=== PATIENT | male | born 1955 | race Caucasian/White ===

== ENCOUNTER 2023-10-22 01:46 | Outpatient (CLI) | payer MEDICARE, SELFPAY ==
--- OUTSIDE RECORDS SUMMARY | 2023-11-05 22:03 | XMS_ITS | Clinical Summary ---
Author Organization [facility] Address [address] [place] [address] Care Team Providers Care Transit Specialist Name Role Phone Makr Colorado M.D. Primary Care Provider [phone] Source Comments Patient records contain information from all sites at [facility]. For routine questions regarding patient records, call [phone] during business hours, M-F 8:00 AM - 5:00 PM Central Time. Record requests for emergency care only can be directed to [phone] at any time.[facility] Allergies No known active allergies Medications Medication Sig Dispensed Refills Start Date End Date Status cholecalciferol (VITAMIN D3) 125 mcg (5,000 Unit) capsule Take 125 mcg by mouth daily. Active coenzyme Q10 (CO Q-10) 10 mg capsule Take 10 mg by mouth daily. 12/02/19 21 Active cyanocobalamin (VITAMIN B12) 1,000 mcg tablet Take 1,000 mcg by mouth every other day. 12/06/19 Active docusate sodium (Colace) 100 mg capsule Take 200 mg by mouth daily. Active glucosamine qxn-vcxasiteuj-mrp 500-200-150 mg tablet Take 1 tablet by mouth daily. 12/06/19 Active bisacodyL (DULCOLAX) 10 mg suppositoryIndicat ions:Constipation Slow Transit Insert 1 suppository (10 mg total) into the rectum daily as needed for constipation. 30 suppository 09/13/19 23 Active polyethylene glycol (MIRALAX) 17 gram/dose oral powder Take 17 g by mouth at bedtime. Dissolve each 17 g dose in 240 mL (8 ounces) of beverage. 10/24/19 Active magnesium chloride (SLOW-MAG) 71.[address] tablet Take 1 tablet (71.5 mg total) by mouth as directed. Take 2 tabs in the morning and 1 tab in the evening. Do not crush or chew. 01/18/20 Active Additional Information Patient taking differently: 143 mgoral2 times daily before morning and evening meals, Take 2 tabs in the morning and 2 tab in the evening. Do not crush or chew., Informant: Self, Reported on 10/22/2023 tamsulosin (FLOMAX) 0.4 mg 24 hr capsule Take 1 capsule (0.4 mg total) by mouth daily. 90 capsule 3 02/15/20 Active Additional Information Patient taking differently:0.4 mg oralEvery evening, Informant: Self, Reported on 09/26/2023 sennosides (senna) 8.6 mg tabletIndications: Constipation Slow Transit Take 1 tablet (8.6 mg total) by mouth 2 (two) times a day. 90 tablet 2 03/03/20 23 Active Additional Information Patient taking differently:8.6 mg oral,(No frequency reported), Daily prn, Reported on 05/16/2023 dexAMETHasone (DECADRON) 4 mg tablet Take 1 tablet (4 mg total) by mouth daily. 3 tablet 08/30/19 24 Active Additional Information Patient taking differently:4 mg oralAs needed, nausea, vomiting, Emergency supply 3 tablets only if needed., Informant: Self, Reported on 09/26/2023 amLODIPine (Norvasc) 10 mg tablet Take 1 tablet (10 mg total) by mouth daily. 90 tablet 1 10/08/19 24 Active Additional Information Patient taking differently:10 mg oralDaily at bedtime, Reported on 10/22/2023 ondansetron ODT (Zofran-ODT) 8 mg disintegrating tablet Dissolve 1 tablet (8 mg total) in the mouth every 8 (eight) hours as needed for nausea or vomiting. 20 tablet 3 10/16/19 24 Active HYDROmorphone (Dilaudid) 2 mg tabletIndications: Chronic Pain/Nonacute Pain Take 1 tablet (2 mg total) by mouth every 4 (four) hours as needed for pain Indication: Chronic Pain/Nonacute Pain. 42 tablet 10/16/19 24 Active fluticasone propionate (Flonase) 50 mcg/actuation nasal spray Administer 2 sprays into each nostril daily. Daily prn 10/24/19 24 Active lisinopriL 20 mg tablet Take 20 mg by mouth daily. Active prochlorperazine (COMPAZINE) 10 mg tabletIndications: Cholangiocarcinoma (HCC),Coding File Clerk Current Drug Therapy, Chemotherapy Take 1 tablet (10 mg total) by mouth every 6 (six) hours as needed for nausea or vomiting (unrelieved by ondansetron). 30 tablet 3 11/03/19 23 024 fluticasone propionate (FLONASE) 50 mcg/actuation nasal spray Administer 2 sprays into each nostril daily. 16 g 3 02/15/20 23 024 Discontinued amLODIPine (NORVASC) 10 mg tablet Take 1 tablet (10 mg total) by mouth daily. 30 tablet 3 08/05/19 24 024 Discontinued(Re order) lisinopriL (PRINIVIL,ZESTRIL) 10 mg tablet Take 1 tablet (10 mg total) by mouth daily. 30 tablet 11 09/17/19 24 024 Discontinued(Re order) HYDROmorphone (Dilaudid) 2 mg tabletIndications: Chronic Pain/Nonacute Pain TAKE 1 TABLET (2 MG TOTAL) BY MOUTH EVERY 4 (FOUR) HOURS NEEDED FOR PAIN INDICATION: CHRONIC PAIN/NONACUTE PAIN. 42 tablet 09/20/19 24 024 Discontinued(Re order) ondansetron ODT (Zofran-ODT) 8 mg disintegrating tablet Dissolve 1 tablet (8 mg total) in the mouth every 8 (eight) hours as needed for nausea or vomiting. 20 tablet 10/02/19 24 024 Discontinued(Re order) lisinopriL 10 mg tablet Take 1 tablet (10 mg total) by mouth daily. 90 tablet 1 10/08/19 24 024 Discontinued lisinopriL 20 mg tablet Take 1 tablet (20 mg total) by mouth daily. 30 tablet 3 10/16/19 24 024 Discontinued(St op Taking at Discharge) acetaminophen (TylenoL) 500 mg tablet Take 500 mg by mouth every 6 (six) hours as needed for pain. 024 Discontinued sulfamethoxazole-t rimethoprim (Bactrim DS) 800-160 mg per tabletIndications: Intra-abdominal infection, community acquired Take 1 tablet by mouth every 12 (twelve) hours for 4 days Indications: Intra-abdominal infection, community acquired. 8 tablet 10/24/19 24 024 Discontinued sulfamethoxazole-t rimethoprim (Bactrim DS) 800-160 mg per tabletIndications: Intra-abdominal infection, community acquired Take 1 tablet by mouth every 12 (twelve) hours for 4 days Indications: Intra-abdominal infection, community acquired. 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 on 12/21/2022 Pathologic stage from 01/09/2023:Stage IV(pM1) - Signed by Na Hernandez M.D., Ph.D. on 01/16/2023 Pure Hypercholesterolemia 11/17/20182022 Encounters Date Type Department Care Team Description 4 1:00 PM CDT Infusion Department of Oncology in [place], [place] [address] [place] [phone] Na Hernandez M.D., Ph.D. Pure Hypercholesterolemia (Primary Dx); Cholangiocarcinoma (HCC); Assisted Current Drug Therapy, Chemotherapy; Peritoneal Carcinomatosis (HCC); Neutropenia Chemotherapy Induced (HCC) 4 11:27 AM CDT - 4 11:59 PM CDT Hospital Encounter Department of Radiology, [facility] in [place], [place] [address] [place] [phone] Dolores Rosario APRN, C.N.P., M.S. Dysuria Discharge Disposition: Home or Self Care 4 10:40 AM CDT Office Visit Department of Oncology in [address] [phone] Dolores Rosario APRN C.N.P., M.S. Assisted Current Drug Therapy, Chemotherapy (Primary Dx); Cholangiocarcinoma (HCC); Peritoneal Carcinomatosis (HCC); Neutropenia Chemotherapy Induced (HCC) 4 9:20 AM CDT Lab Department of Infusion Therapy in [place], [place] [address] [place] [phone] Na Hernandez M.D., Ph.D. Pure Hypercholesterolemia (Primary Dx); Cholangiocarcinoma (HCC); Coding File Clerk Current Drug Therapy, Chemotherapy; Peritoneal Carcinomatosis (HCC); Neutropenia Chemotherapy Induced (HCC) 4 1:00 PM CDT Office Visit Department of Family Medicine, [facility], in [address] [place] [address] Mark [place] M.D. Diarrhea (Primary Dx); Cholangiocarcinoma (HCC); Hesitancy Urinary; Hypertension Essential Primary Discharge Disposition: Home or Self Care 4 Orders Only Department of Oncology in [place], [place] [address] [place] [address] Dolores Rosario APRN, C.NAleta., M.S. Dysuria (Primary Dx) 4 7:20 AM CDT Office Visit Department of Oncology in [place], [place] [address] [place] [address] Dolores Rosario APRN, C.N.P., M.S. Cholangiocarcinoma (HCC) 4 Orders Only Department of Oncology in [place], [place] [address] [place] [address] Omero Lopes Cholangiocarcinoma (HCC) (Primary Dx); Assisted Current Drug Therapy, Chemotherapy; Peritoneal Carcinomatosis (HCC); Neutropenia Chemotherapy Induced (HCC) 4 Orders Only Department of Oncology in [place], [place] [address] [place] [address] Omero Lopes 4 Clinical Communication Department of Family Medicine, [facility], in [address] [place] [address] Mark Colorado M.D. Communication 4 Clinical Communication Department of Oncology in [place], [place] [address] [place] [address] Bacilio Forrester M.D. 4 Clinical Communication Department of Oncology in [place], [place] [address] [place] [phone] Jodi Rosa RJohanna., O.C.N. Plan moving forward 4 Orders Only Department of Oncology in [place], [place] [address] [place] [address] Omero Lopes 4 Clinical Communication Division of Gastroenterology in [place], [place] [address] [place] [address] Isis Fonseca M.D. 4 1:20 PM CDT Anesthesia Event Division of Gastroenterology in [place], [place] [address] [place] [phone] Lynsey Boyle APRN, Siena Short M.D. 4 12:55 PM CDT - 4 11:59 PM CDT Hospital Encounter Department of Radiology, [facility] in [place], [place] [address] [place] [phone] Hansa Ye M.D., M.S. Discharge Disposition: Home or Self Care 4 12:50 PM CDT Ancillary Procedure Department of Gastroenterology 4 3:09 AM CDT - 4 5:52 PM CDT Hospital Encounter [facility], [facility], Sixth Floor [address] [place] [phone] Donna Prince M.D., M.P.H. Ricki Navarro M.B., B.Chir. Change Mental Status (Primary Dx); Sepsis (HCC); Elevated Liver Function Test; Retention Urinary; Constipation Slow Transit; Weakness General; Anemia Chemotherapy Induced; Debility [R53.81] Discharge Disposition: Home-Health Care [facility] 4 Orders Only Department of Oncology in [place], [place] [address] [place] [address] Omero Lopes Pure Hypercholesterolemia (Primary Dx); Cholangiocarcinoma (HCC) 4 7:17 PM CDT - 4 10:30 PM CDT Emergency [facility] [address] [place] [phone] Tresa Patino APRN, C.N.PHolden, D.N.P., M.S.N. Abdominal Pain (Primary Dx) Discharge Disposition: Home or Self Care 4 Orders Only Department of Oncology in [place], [place] [address] [place] [phone] Omero Lopes 4 Clinical Communication Department of Oncology in [place], [place] [address] [place] [phone] Sukhi Duong M.S.N., R.N. 4 10:15 AM CDT Telemedicine Department of Family Medicine, [facility], in [place], [place] [address] [place] [id number] Mark [place] M.D. Cholangiocarcinoma (HCC) (Primary Dx); Hesitancy Urinary; Weakness General Discharge Disposition: Home or Self Care 4 Refill Department of Oncology in [place], [place] [address] [place] [phone] Na Hernandez M.D., Ph.D. Med Refill (Ondansetron, hydromorphone ) 4 10:00 AM CDT Infusion Department of Oncology in [address] [phone] Na Hernandez M.D., Ph.D. Pure Hypercholesterolemia (Primary Dx); Cholangiocarcinoma (HCC); Peritoneal Carcinomatosis (HCC); Neutropenia Chemotherapy Induced (HCC); Assisted Current Drug Therapy, Chemotherapy 4 9:20 AM CDT Nurse Only Department of Oncology in [place], [place] [address] [place] [phone] Loyda Lennon M.D. Schepp, Camille M, R.N. 4 7:15 AM CDT Lab Department of Oncology in [address] [phone] Na Hernandez M.D., Ph.D. Pure Hypercholesterolemia (Primary Dx); Cholangiocarcinoma (HCC); Peritoneal Carcinomatosis (HCC); Neutropenia Chemotherapy Induced (HCC); Coding File Clerk Current Drug Therapy, Chemotherapy 4 Refill Department of Oncology in [place], [place] [address] [place] [phone] Na Hernandez M.D., Ph.D. Med Refill 4 Orders Only Department of Oncology in [place], [place] [address] [place] [phone] Omero Lopes Cholangiocarcinoma (HCC) (Primary Dx); Assisted Current Drug Therapy, Chemotherapy; Peritoneal Carcinomatosis (HCC); Neutropenia Chemotherapy Induced (HCC) 4 Orders Only Department of Oncology in [place], [place] [address] [place] [phone] Omero Lopes Pure Hypercholesterolemia (Primary Dx); Cholangiocarcinoma (HCC) 4 Clinical Communication Department of Oncology in [place], [place] [address] [place] [phone] Jodi Rosa R.N., O.C.N. Symptom Assessment (Nausea, pain) 4 12:00 PM CDT Infusion Department of Oncology in [place], [place] [address] [place] [phone] Na Hernandez M.D., Ph.D. Coding File Clerk Current Drug Therapy, Chemotherapy (Primary Dx); Cholangiocarcinoma (HCC); Peritoneal Carcinomatosis (HCC); Neutropenia Chemotherapy Induced (HCC); Pure Hypercholesterolemia 4 9:30 AM CDT Office Visit Department of Oncology in [place], [place] [address] [place] [phone] Yuko Pennington MPAS, P.A.-C. Cholangiocarcinoma (HCC); Peritoneal Carcinomatosis (HCC); Neutropenia Chemotherapy Induced (HCC); Coding File Clerk Current Drug Therapy, Chemotherapy 4 Orders Only Department of Oncology in [place], [place] [address] [place] [phone] Omero Lopes Cholangiocarcinoma (HCC) (Primary Dx); Coding File Clerk Current Drug Therapy, Chemotherapy; Peritoneal Carcinomatosis (HCC); Neutropenia Chemotherapy Induced (HCC) 4 Orders Only Department of Oncology in [place], [place] [address] [place] [phone] Omero Lopes 4 Orders Only Department of Oncology in [place], [place] [address] [place] [phone] Omero Lopes 4 1:20 PM CDT Office Visit Department of Oncology in [place], [place] [address] [place] [phone] Na Hernandez M.D., Ph.D. Cholangiocarcinoma (HCC) (Primary Dx) 4 8:02 AM CDT - 4 11:59 PM CDT Hospital Encounter Department of Radiology, [facility], in [address] [phone] Na Hernandez M.D., Ph.D. Cholangiocarcinoma (HCC) Discharge Disposition: Home or Self Care 4 Orders Only Department of Oncology in [place], [place] [address] [place] [phone] Omero Lopes Peritoneal Carcinomatosis (HCC) (Primary Dx); Cholangiocarcinoma (HCC) 4 Orders Only Department of Oncology in [address] [phone] Omero Lopes 4 9:45 AM CDT Clinical Communication Virtual Review in [place], [place] [address] [place] [address] Blood Pressure 4 Orders Only Department of Oncology in [place], [place] [address] [place] [phone] Omero Lopes Cholangiocarcinoma (HCC) (Primary Dx); Peritoneal Carcinomatosis (HCC); Neutropenia Chemotherapy Induced (HCC); Assisted Current Drug Therapy, Chemotherapy 4 9:30 AM CDT Infusion Department of Oncology in [place], [place] [address] [place] [phone] Na Hernandez M.D., Ph.D. Assisted Current Drug Therapy, Chemotherapy (Primary Dx); Cholangiocarcinoma (HCC); Peritoneal Carcinomatosis (HCC); Neutropenia Chemotherapy Induced (HCC); Pure Hypercholesterolemia 4 7:30 AM CDT Lab Department of Oncology in [place], [place] [address] [place] [phone] Na Hernandez M.D., Ph.D. Pure Hypercholesterolemia (Primary Dx); Cholangiocarcinoma (HCC); Peritoneal Carcinomatosis (HCC); Neutropenia Chemotherapy Induced (HCC); Assisted Current Drug Therapy, Chemotherapy 4 Orders Only Department of Oncology in [place], [place] [address] [place] [phone] Na Hernandez M.D., Ph.D. 4 Orders Only Department of Oncology in [place], [place] [address] [place] [phone] Omero Lopes Cholangiocarcinoma (HCC) (Primary Dx); Assisted Current Drug Therapy, Chemotherapy; Peritoneal Carcinomatosis (HCC); Neutropenia Chemotherapy Induced (HCC) 4 Refill Department of Oncology in [place], [place] [address] [place] [phone] Yuko Pennington MPAS, P.A.-C. Med Refill 4 8:15 AM CDT Infusion Department of Oncology in [place], [place] [address] [place] [phone] Na Hernandez M.D., Ph.D. Pure Hypercholesterolemia (Primary Dx); Cholangiocarcinoma (HCC); Peritoneal Carcinomatosis (HCC); Neutropenia Chemotherapy Induced (HCC); Assisted Current Drug Therapy, Chemotherapy 4 7:15 AM CDT Lab Department of Oncology in [place], [place] [address] [place] [phone] Na Hernandez M.D., Ph.D. Pure Hypercholesterolemia (Primary Dx); Cholangiocarcinoma (HCC); Peritoneal Carcinomatosis (HCC); Neutropenia Chemotherapy Induced (HCC); Coding File Clerk Current Drug Therapy, Chemotherapy 4 Orders Only Department of Oncology in [place], [place] [address] [place] [address] [place] [address] Omero Lopes Cholangiocarcinoma (HCC) (Primary Dx); Assisted Current Drug Therapy, Chemotherapy; Peritoneal Carcinomatosis (HCC); Neutropenia Chemotherapy Induced (HCC) 4 2:15 PM CDT Infusion Department of Oncology in [place], [place] [address] [place] [address] Na Hernandez M.D., Ph.D. Coding File Clerk Current Drug Therapy, Chemotherapy (Primary Dx); Cholangiocarcinoma (HCC); Peritoneal Carcinomatosis (HCC); Neutropenia Chemotherapy Induced (HCC); Pure Hypercholesterolemia 4 1:20 PM CDT Office Visit Department of Oncology in [place], [place] [address] [place] [address] Na Hernandez M.D., Ph.D. Cholangiocarcinoma (HCC); Peritoneal Carcinomatosis (HCC); Neutropenia Chemotherapy Induced (HCC); Assisted Current Drug Therapy, Chemotherapy 4 11:11 AM CDT - 4 11:59 PM CDT Hospital Encounter Department of Cardiovascular Diseases in [place], [place] [address] [place] [address] Na Hernandez M.D., Ph.D. Cholangiocarcinoma (HCC) Discharge Disposition: Home or Self Care 4 Orders Only Department of Oncology in [place], [place] [address] [place] [address] Luna Laboy Cholangiocarcinoma (HCC) (Primary Dx); Assisted Current Drug Therapy, Chemotherapy; Peritoneal Carcinomatosis (HCC); Neutropenia Chemotherapy Induced (HCC) 4 Orders Only Department of Oncology in [place], [place] [address] [place] [phone] Karen Burger 4 2:39 AM CDT - 4 6:29 AM CDT Emergency [facility] [address] [place] [phone] Erin Maldonado P.A.Mendoza., P.A., M.S. Headache Unspecified (Primary Dx); Pain Chest Atypical Discharge Disposition: Home or Self Care 4 Refill Department of Oncology in [address] [phone] Lee Woods M.D., M.P.H. Med Refill (Hydromorphone ) 4 Orders Only Department of Oncology in [address] [phone] Tao, Karen R 4 Documentation Department of Oncology in [address] [phone] Loyda Lennon M.D. 4 11:30 AM CDT Infusion Department of Oncology in [address] [phone] Yuko Pennington MPAS, P.A.-C. Coding File Clerk Current Drug Therapy, Chemotherapy (Primary Dx); Cholangiocarcinoma (HCC); Peritoneal Carcinomatosis (HCC); Neutropenia Chemotherapy Induced (HCC) 4 9:00 AM CDT Infusion Department of Oncology in [address] [phone] Yuko Pennington MPAS, P.A.-C. Pure Hypercholesterolemia (Primary Dx); Cholangiocarcinoma (HCC); Coding File Clerk Current Drug Therapy, Chemotherapy; Peritoneal Carcinomatosis (HCC); Neutropenia Chemotherapy Induced (HCC) 4 Orders Only Department of Oncology in [place], [place] [address] [place] [phone] Tao, Karen R Cholangiocarcinoma (HCC) (Primary Dx); Assisted Current Drug Therapy, Chemotherapy; Peritoneal Carcinomatosis (HCC); Neutropenia Chemotherapy Induced (HCC) 4 10:00 AM CDT Infusion Department of Oncology in [address] [phone] Yuko Pennington MPAS, P.A.-C. Pure Hypercholesterolemia (Primary Dx); Cholangiocarcinoma (HCC); Coding File Clerk Current Drug Therapy, Chemotherapy; Peritoneal Carcinomatosis (HCC); Neutropenia Chemotherapy Induced (HCC) 4 8:45 AM CDT Lab Department of Oncology in [place], [place] [address] [place] [address] Yuko Pennington MPAS, P.A.-C. Pure Hypercholesterolemia (Primary Dx); Cholangiocarcinoma (HCC) 4 Orders Only Department of Oncology in [place], [place] [address] [place] [address] Yuko Pennington MPAS, P.A.-C. Cholangiocarcinoma (HCC) (Primary Dx); Peritoneal Carcinomatosis (HCC); Neutropenia Chemotherapy Induced (HCC); Assisted Current Drug Therapy, Chemotherapy 4 Orders Only Department of Oncology in [place], [place] [address] [place] [phone] Tao, Karen R Cholangiocarcinoma (HCC) (Primary Dx); Coding File Clerk Current Drug Therapy, Chemotherapy; Peritoneal Carcinomatosis (HCC); Neutropenia Chemotherapy Induced (HCC) 4 Orders Only Department of Oncology in [place], [place] [address] [place] [address] Tao, Karen R 4 10:00 AM CDT Infusion Department of Oncology in [place], [place] [address] [place] [phone] Yuko Pennington MPAS, P.A.-C. Coding File Clerk Current Drug Therapy, Chemotherapy (Primary Dx); Cholangiocarcinoma (HCC); Peritoneal Carcinomatosis (HCC); Neutropenia Chemotherapy Induced (HCC); Pure Hypercholesterolemia 4 9:15 AM CDT Lab Department of Oncology in [place], [place] [address] [place] [address] Yuko Pennington MPAS, P.A.-C. Pure Hypercholesterolemia (Primary Dx); Cholangiocarcinoma (HCC) 4 Orders Only Department of Oncology in [place], [place] [address] [place] [address] Tao, Karen R Cholangiocarcinoma (HCC) (Primary Dx); Assisted Current Drug Therapy, Chemotherapy; Peritoneal Carcinomatosis (HCC); Neutropenia Chemotherapy Induced (HCC) 4 Orders Only Department of Oncology in [place], [place] [address] [place] [address] Tao, Karen R Cholangiocarcinoma (HCC) (Primary Dx) 4 2:00 PM CDT Infusion Department of Oncology in [place], [place] [address] [place] [address] Yuko Pennington MPAS, P.A.-C. Pure Hypercholesterolemia (Primary Dx); Cholangiocarcinoma (HCC); Coding File Clerk Current Drug Therapy, Chemotherapy; Peritoneal Carcinomatosis (HCC) 4 1:10 PM CDT Office Visit Department of Oncology in [place], [place] [address] [place] [address] Yuko Pennington MPAS, P.A.-C. Peritoneal Carcinomatosis (HCC) (Primary Dx); Cholangiocarcinoma (HCC); Coding File Clerk Current Drug Therapy, Chemotherapy 4 Orders Only Department of Oncology in [place], [place] [address] [place] [address] Tao, Karen R Cholangiocarcinoma (HCC) (Primary Dx); Assisted Current Drug Therapy, Chemotherapy; Peritoneal Carcinomatosis (HCC) 4 Orders Only Department of Oncology in [place], [place] [address] [place] [address] Tao, Karen R 4 Clinical Communication Department of Oncology in [place], [place] [address] [place] [address] Tavia Arroyo, R.N. 4 Orders Only Department of Oncology in [place] [place], [place] [address] [place] [phone] Tao, Karen R Cholangiocarcinoma (HCC) (Primary Dx) 4 Orders Only Department of Oncology in [place], [place] [address] [place] [phone] Tao, Karen R Cholangiocarcinoma (HCC) (Primary Dx); Peritoneal Carcinomatosis (HCC); Assisted Current Drug Therapy, Chemotherapy; Neutropenia Chemotherapy Induced (HCC) from Last 3 Months Immunizations Name Administration Dates Next Due Influenza high dose QV(65 ye ars or older) (PF) 01/29/2023,01/15/2022,01/23/2021 PCV13 11/17/2018 PPSV23 12/01/2019 SARS-COV-2 (COVID-19) - MODE RNA (12 YEARS AND OLDER) [id number] 01/29/2023 Tdap 05/28/2013 Social History Tobacco Use Types Packs/Day Years Used Date Smoking Tobacco: Never Passive Smoke Exposure: Never Smokeless Tobacco: Never Tobacco Cessation:Counseling Given: Not Answered Alcohol Use Standard Drinks/Week Comments Not Currently 0 (1 standard drink = 0.6 oz pur e alcohol) [facility] Utilities Answer Date Recorded In the past 12 months has e [employer], gas, oil, or water company threatened to shut off services in your home? No 10/22/2023 Humiliation, Afraid, Rape, and Kick questionnair e Answer Date Recorded Within the last year, have y ou been afraid of your partner or ex-partner? No 10/22/2023 Within the last year, have y ou been humiliated or emotionally abused in other ways by your partner or ex-partner? No Within the last year, have y ou been kicked, hit, slapped, or otherwise physically hurt by your partner or ex-partner? No 10/22/2023 Within the last year, have y ou been raped or forced to have any kind of sexual activity by your partner or ex-partner? No 10/22/2023 Overall Financial Resource Strain (CARDIA) Answe r Date Recorded How hard is it for you to pa y for the very basics like food, housing, medical care, and heating? Not hard at all 09/10/2022 PHQ-2 Answer Date Recorded PHQ-2 Score 0 10/16/2023 Exercise Vital Sign Answer Date Recorde d On average, how many days pe r week do you engage in moderate to strenuous exercise (like a brisk walk)? 0 days 10/10/2023 On average, how many minutes do you engage in exercise at this level? 0 min 10/10/2023 Hunger Vital Sign Answer Date Recorded Within the past 12 months, y ou worried that your food would run out before you got the money to buy more. Never true 10/22/19 Within the past 12 months, t he food you bought just didn't last and you didn't have money to get more. Never true 10/22/2023 PRAPARE - Transportation Answer Date Re corded In the past 12 months, has l ack of transportation kept you from medical appointments or from getting medications? No 09/30 In the past 12 months, has l ack of transportation kept you from meetings, work, or from getting things needed for daily living? No 10/22/2023 Nutrition Answer Date Recorded On average, how many serving s of fruits and vegetables do you eat per day (serving size is equal to 1 cup or approximately the size of a tennis ball)? 3-5 10/10/2023 Dental Answer Date Recorded Dental: Regular Dentist Yes 09/11/19 Employment Answer Date Recorded Employment status Retired 10/10/2023 Housing Stability Answer Date Recorded What is your living situation today? I have a [facility] place to live 10/22/2023 Sex and Gender Information Value Date Recorded Sex Assigned at Male 09/10/2022 12:02 PM CDT Gender Identity Male 09/10/2022 12:02 PM CDT Sexual Orientation Straight 09/10/2022 12 :02 PM CDT Last Filed Vital Signs Vital Sign Reading Time Taken Comments Blood Pressure 139/73 11/01/2023 10:31 AM CDT Pulse 71 11/01/2023 10:31 AM CDT Temperature 37 ??C (98.6 ??F) 11/01/2023 10:31 AM CDT Respiratory Rate 17 10/29/2023 7:08 AM CDT Oxygen Saturation 98% 11/01/2023 10:31 AM CDT Inhaled Oxygen Concentration - - Weight 87.2 kg (192 lb 3.9 oz) 11/01/2023 10:31 AM CDT Height 182.6 cm (5' 11.89) 11/01/2023 10:31 AM CDT Body Mass Index 26.15 11/01/2023 10:31 AM CDT Plan of Treatment Upcoming Encounters Date Type Department Care Team (Latest Contact Info) Description 11/07/2023 3:15 PM CDT Clinical Communication Virtual Review in [place], [place] [address] [place] [phone] 11/15/2023 6:40 AM CDT Lab Department of Laboratory Medicine and Pathology, [facility], in [place], [place] [address] [place] [phone] Loyda Lennon M.D. [address] [place] [phone] 11/15/2023 8:20 AM CDT Office Visit Department of Oncology in [place], [place] [address] [place] [phone] Manjit Velasquez APRN, C.N.P., D.N.P. [address] [place] [phone] 11/15/2023 9:30 AM CDT Comprehensive Visit Department of Palliative Care in [place], [place] [address] [place] [phone] Patty Gomez APRN, C.N.P., M.S.N. [address] [place] [phone] 11/15/2023 2:15 PM CDT Infusion Department of Oncology in [place], [place] [address] [place] [phone] Loyda Lennon M.D. [address] [place] [phone] 11/22/2023 7:30 AM CDT Lab Department of Oncology in [place], [place] [address] [place] [phone] Loyda Lennon M.D. [address] [place] [phone] 11/22/2023 8:45 AM CDT Infusion Department of Oncology in [place], [place] [address] [place] [phone] Loyda Lennon M.D. [address] [place] [phone] 11/28/2023 3:30 PM CDT Clinical Communication Virtual Review in [place], [place] [address] [place] [address] 11/29/2023 9:00 AM CDT Procedure visit Department of Urology in [place], [place] [address] [place] [phone] Mark Colorado M.D. [address] [place] [address] [place] [phone] 11/29/2023 11:20 AM CDT Lab Department of Laboratory Medicine and Pathology, [facility] in [place], [place] [address] [place] [phone] Loyda Lennon M.D. [address] [place] [phone] 11/29/2023 11:30 AM CDT Lab Department of Oncology in [place], [place] [address] [place] [phone] Loyda Lnenon M.D. [address] [place] [phone] 11/29/2023 1:00 PM CDT Infusion Department of Oncology in [place], [place] [address] [place] [phone] Loyda Lennon M.D. [address] [place] [phone] 12/03/2023 1:45 PM CDT Comprehensive Visit Department of Urology in [place], [place] [address] [place] [phone] Mona Egan P.A.-C. [address] [place] [phone] 12/05/2023 1:20 PM CDT Comprehensive Visit Department of Oncology in [place], [place] [address] [place] [phone] Letty Kate M.D. [address] [place] [phone] 12/10/2023 3:00 PM CDT Clinical Communication Virtual Review in [place], [place] [address] [place] [address] 12/10/2023 3:30 PM CDT Procedure visit Department of Urology in [place], [place] [address] [place] [phone] Mark Colorado M.D. [address] [place] [address] [place] [address] 12/12/2023 3:45 PM CDT Appointment Department of Radiology, [facility], in [place], [place] [address] [place] [phone] Na Hernandez M.D., Ph.D. [address] [place] [phone] 12/13/2023 6:00 AM CDT Lab Department of Laboratory Medicine and Pathology, [facility], in [place], [place] [address] [place] [phone] Loyda Lennon M.D. [address] [place] [phone] 12/13/2023 6:20 AM CDT Lab Department of Infusion Therapy in [place], [place] [address] [place] [phone] Loyda Lennon M.D. [address] [place] [phone] 12/13/2023 11:10 AM CDT Office Visit Department of Oncology in [place], [place] [address] [place] [phone] Na Hernandez M.D., Ph.D. [address] [place] [phone] 12/13/2023 1:00 PM CDT Infusion Department of Oncology in [place], [place] [address] [place] [phone] Loyda Lennon M.D. [address] [place] [phone] 12/20/2023 9:20 AM CDT Lab Department of Infusion Therapy in [place], [place] [address] [place] [phone] Loyda Lennon M.D. [address] [place] [phone] 12/20/2023 10:30 AM CDT Infusion Department of Oncology in [place], [place] [address] [place] [phone] Loyda Lennon M.D. [address] [place] [phone] 12/25/2023 10:30 AM CDT Appointment Division of Gastroenterology in [place], [place] [address] [place] [phone] aN Hernandez M.D., Ph.D. [address] [place] [phone] 12/27/2023 10:15 AM CDT Lab Department of Oncology in [place], [place] [address] [place] [phone] Loyda Lennon M.D. [address] [place] [phone] 12/27/2023 10:30 AM CDT Lab Department of Laboratory Medicine and Pathology, [facility], in [place], [place] [address] [place] [phone] Loyda Lennon M.D. [address] [place] [phone] 12/27/2023 11:45 AM CDT Infusion Department of Oncology in [place], [place] [address] [place] [phone] Loyda Lennon M.D. [address] [place] [phone] 01/03/2024 1:00 PM CDT Clinical Communication Virtual Review in [place], [place] [address] [place] [address] 01/10/2024 8:00 AM CDT Lab Department of Infusion Therapy in [address] [phone] Loyda Lennon M.D. [address] [place] [phone] 01/10/2024 8:20 AM CDT Lab Department of Laboratory Medicine and Pathology, [facility] in [place], [place] [address] [place] [phone] Loyda Lennon M.D. [address] [place] [phone] 01/10/2024 10:30 AM CDT Office Visit Department of Oncology in [address] [phone] Na Hernandez M.D., Ph.D. [address] [place] [phone] 01/10/2024 11:45 AM CDT Infusion Department of Oncology in [place], [place] [address] [place] [phone] Loyda Lennon M.D. [address] [place] [phone] 01/17/2024 8:45 AM CDT Lab Department of Oncology in [place], [place] [address] [place] [phone] Loyda Lennon M.D. [address] [place] [phone] 01/17/2024 10:00 AM CDT Infusion Department of Oncology in [place], [place] [address] [place] [phone] Loyda Lennon M.D. [address] [place] [phone] 01/24/2024 8:00 AM CDT Lab Department of Laboratory Medicine and Pathology, [facility] in [place], [place] [address] [place] [phone] Loyda Lennon M.D. [address] [place] [phone] 01/24/2024 8:15 AM CDT Lab Department of Oncology in [place], [place] [address] [place] [phone] Loyda Lennon M.D. [address] [place] [phone] 01/24/2024 9:15 AM CDT Infusion Department of Oncology in [place], [place] [address] [place] [phone] Loyda Lennon M.D. [address] [place] [phone] Scheduled Procedures Name Priority Associated Diagnoses Date/Ti me HEPATECTOMY RESECTION LIVER Cholangiocarcinoma (HCC) ULTRASOUND LIVER Cholangiocarcinoma (HCC) RECONSTRUCTION PORTAL VEIN Cholangiocarcinoma (HCC) Health Maintenance Due Date Last Done Comments CT Colonography 1955 Cologuard 1955 Generalized Anxiety (OTTO-7) 1955 Hepatitis A Vaccines (1 of 2 - Risk 2-dose series) 02/23/1972 Zoster Vaccines (1 of 2) 02/23/1972 Hepatitis B Vaccines (1 of 3 - Risk 3-dose series) 2013 COVID-19 Vaccine ( season) 2023 01/29/2023, 01/15/2022, 01/23/2021, Additional history exists DTaP,Tdap,and Td Vaccines (2 - Td or Tdap) 05/28/2023 05/28/2013 Controlled Substance Agreement 11/03/2023 Controlled Substance Monitoring (PHQ-9) 11/03/2023 Controlled Substance Monitoring 11/03/2023 Opioid Risk Tool (ORT) 11/03/2023 PEG assessment for Opioid therapy 11/03/2023 Influenza Vaccine (#1) 2023 , 01/15/2022, 01/23/2021 Lipid (Cholesterol) Screening 01/26/2024 01/25/2023, 12/05/2021, 12/01/2020 Visit: Medicare Annual Wellness 01/31/2024 01/29/2023, 12/05/2021 Visit: Annual, age 65+ (or Medicare and <65) 10/29/2024 10/30/2023, 12/05/2021 Creatinine Level (Kidney Function Test) 10/31/2024 11/01/2023, 10/29/2023, 10/24/2023, Additional history exists Potassium Level 10/31/2024 11/01/2023, 10/01, 10/24/2023, Additional history exists Sodium Level 10/31/2024 11/01/2023, 10/01, 10/24/2023, Additional history exists Colonoscopy 07/18/2026 07/18/2016 (Perf ormed elsewhere), 07/18/2016 Colorectal Cancer Surveillance 07/18/2026 Fasting Glucose for Diabetes Screening 10/31/2026 11/01/2023, 10/29/2023, 10/24/2023, Additional history exists Pneumococcal vaccine (65+ years) Completed 12/01/2019, 11/17/2018 Fall Risk Screen (Annual) Completed 08/02/2023 Depression Screening (Annual PHQ-2) Completed 10/16/2023, 10/16/2023 HPV Vaccines Aged Out No longer eligi ble based on patient's age to complete this topic Medical Devices Implanted Type Area Wax Pourer Device Identifier Shelf Expiration Date Model / Serial / Lot Titanium Plate Hardware e.g. pins/screws/ro ds Cranial Description:Titanium Plate i n skull Prt Cath Infus Mri Intrmd 8f - [id number] Implanted:Qty: 1 on 10/23/2022 by Bal Menjivar M.D. at [facility] Implantable [employer] 10/30/2023 [id number] / / [id number] [facility] 10fx22 - [id number] Implanted:Qty: 1 on 10/22/2023 by Yariel Flores M.D., M.S. at [facility] Pancreatic Stent N/A: Bile Duct [employer] 07/16/2026 [id number] / / [id number] Description:[facility] at [facility] - [id number] Implanted:Qty: 1 on 10/22/2023 by Yariel Flores M.D., M.S. at [facility] Pancreatic Stent N/A: Bile Duct [employer] 07/29/2026 [id number] / / [id number] Description:Cut length to 17 cm Explanted Type Area Wax Pourer Device Identifier Shelf Expiration Date Model / Serial / Lot [facility] Sgl 5fx5 - [id number] Implanted:Qty: 1 on 10/12/2022 by Fab Frankel M.D., M.P.H. at [facility] Explanted:Qty: 1 on 10/30/2022 by Dallas Vallecillo M.D. at [facility] Biliary Stent [employer] 01/11/2025 [id number] / / [id number] Description:Wendi Pancreati c Stent Stnt Ctt Otw 7f 12 - [id number] Implanted:Qty: 1 on 10/12/2022 by Fab Frankel M.D., M.P.H. at [facility] Lat[employer]onda Explanted:Qty: 1 on 10/30/2022 by Dallas Vallecillo M.D. at [facility] Biliary Stent [employer] 01/30/2025 [id number] / / [id number] Stnt Ctt Otw 7f 12 - [id number] Implanted:Qty: 1 on 10/12/2022 by Fab Frankel M.D., M.P.H. at [facility]/[employer] Explanted:Qty: 1 on 10/30/2022 by Dallas Vallecillo M.D. at [facility] Biliary Stent [employer] 01/30/2025 [id number] / / [id number] [facility] Wdg 10fx22 - [id number] Implanted:Qty: 1 on 10/30/2022 by Dallas Vallecillo M.D. at [facility] Explanted:Qty: 1 on 01/07/2023 by Brianna Hopson M.D. at [facility] [employer] Biliary Stent [employer] 09/06/2025 [id number] / / [id number] [facility] Pn Wdg 8.5fx22 - [id number] Implanted:Qty: 1 on 10/30/2022 by Dallas Vallecillo M.D. at [facility] Explanted:Qty: 1 on 01/07/2023 by Brianna Hopson M.D. at [facility] [employer] Biliary Stent [employer] 07/19/2025 [id number] / / [id number] [facility]n Wdg 10fx22 - [id number] Implanted:Qty: 1 on 01/07/2023 by Brianna Hopson M.D. at [facility] [employer] Explanted:Qty: 1 on 04/30/2023 by Dallas Vallecillo M.D. at [facility]/[place] Biliary Stent [employer] 11/22/2025 [id number] / / [id number] Description:10x16 [facility] 10fx22 - [id number] Implanted:Qty: 1 on 01/07/2023 by Brianna Hopson M.D. at [facility] [employer] Explanted:Qty: 1 on 04/30/2023 by Dallas Vallecillo M.D. at [facility]/[place] Biliary Stent [employer] 11/22/2025 [id number] / / [id number] Description:10x22 [facility] 10fx22 - [id number] Implanted:Qty: 1 on 04/30/2023 by Dallas Vallecillo M.D. at [facility]/[place] Explanted:Qty: 1 on 08/02/2023 by Dallas Vallecillo M.D. at [facility]/[place] Pancreatic Stent [employer] 03/14/2026 [id number] / / [id number] Description:10x22 [facility] 10fx22 - [id number] Implanted:Qty: 1 on 04/30/2023 by Dallas Vallecillo M.D. at [facility] [employer] Explanted:Qty: 1 on 08/02/2023 by Dallas Vallecillo M.D. at [facility] [employer] Pancreatic Stent [employer] 03/14/2026 [id number] / / [id number] Description:10x18.5 [facility] 10fx22 - [id number] Implanted:Qty: 1 on 08/02/2023 by Dallas Vallecillo M.D. at [facility] [employer] Explanted:Qty: 1 on 10/22/2023 by Yariel Flores M.D., M.S. at [facility] Pancreatic Stent N/A: Bile Duct [employer] 06/17/2026 [id number] / / [id number] Description:10x20 Stnt [facility] Pn Wdg 10fx22 - [id number] Implanted:Qty: 1 on 08/02/2023 by Dallas Vallecillo M.D. at [facility] [employer] Explanted:Qty: 1 on 10/22/2023 by Yariel Flores M.D., M.S. at [facility] Pancreatic Stent N/A: Bile Duct [employer] 06/23/2026 [id number] / / [id number] Description:10x18.5 Procedures Procedure Name Priority Date/Time Associated Diagnosis Comments US URINARY BLADDER RAD - Routine (most inpatients and all outpatients) 11/01/2023 11:58 AM CDT Dysuria MICROSCOPIC AUTOMATED Routine 11/01/2023 9:38 AM CDT UA DIPSTICK W/MICROSCOPIC RESEARCH Routine 11/01/2023 9:38 AM CDT Cholangiocarcinoma (HCC) Coding File Clerk Current Drug Therapy, Chemotherapy Peritoneal Carcinomatosis (HCC) Neutropenia Chemotherapy Induced (HCC) PROSTATE-SPECIFIC AG (PSA) SCRN, S Routine 11/01/2023 9:20 AM CDT Cholangiocarcinoma (HCC) NT-PRO B-TYPE NATRIURETIC PEPTIDE (BNP), S Routine 11/01/2023 9:20 AM CDT Cholangiocarcinoma (HCC) Assisted Current Drug Therapy, Chemotherapy Peritoneal Carcinomatosis (HCC) Neutropenia Chemotherapy Induced (HCC) TROPONIN I, HIGH SENSITIVITY, P Routine 11/01/2023 9:20 AM CDT Cholangiocarcinoma (HCC) Coding File Clerk Current Drug Therapy, Chemotherapy Peritoneal Carcinomatosis (HCC) Neutropenia Chemotherapy Induced (HCC) LIPASE, S/P Routine 11/01/2023 9:20 AM CDT Cholangiocarcinoma (HCC) Assisted Current Drug Therapy, Chemotherapy Peritoneal Carcinomatosis (HCC) Neutropenia Chemotherapy Induced (HCC) AMYLASE, TOT, S Routine 11/01/2023 9:20 AM CDT Cholangiocarcinoma (HCC) Assisted Current Drug Therapy, Chemotherapy Peritoneal Carcinomatosis (HCC) Neutropenia Chemotherapy Induced (HCC) PHOSPHORUS (INORGANIC), S Routine 11/01/2023 9:20 AM CDT Cholangiocarcinoma (HCC) Coding File Clerk Current Drug Therapy, Chemotherapy Peritoneal Carcinomatosis (HCC) Neutropenia Chemotherapy Induced (HCC) MAGNESIUM, S Routine 11/01/2023 9:20 AM CDT Cholangiocarcinoma (HCC) Coding File Clerk Current Drug Therapy, Chemotherapy Peritoneal Carcinomatosis (HCC) Neutropenia Chemotherapy Induced (HCC) URIC ACID, S/P Routine 11/01/2023 9:20 AM CDT Cholangiocarcinoma (HCC) Coding File Clerk Current Drug Therapy, Chemotherapy Peritoneal Carcinomatosis (HCC) Neutropenia Chemotherapy Induced (HCC) LACTATE DEHYDROGENASE (LD), S Routine 11/01/2023 9:20 AM CDT Cholangiocarcinoma (HCC) Coding File Clerk Current Drug Therapy, Chemotherapy Peritoneal Carcinomatosis (HCC) Neutropenia Chemotherapy Induced (HCC) COMPREHENSIVE METABOLIC PANEL, S/P Routine 11/01/2023 9:20 AM CDT Cholangiocarcinoma (HCC) Coding File Clerk Current Drug Therapy, Chemotherapy Peritoneal Carcinomatosis (HCC) Neutropenia Chemotherapy Induced (HCC) CBC WITH DIFFERENTIAL, B Routine 11/01/2023 9:20 AM CDT Cholangiocarcinoma (HCC) Assisted Current Drug Therapy, Chemotherapy Peritoneal Carcinomatosis (HCC) Neutropenia Chemotherapy Induced (HCC) C. DIFFICILE TOXIN PCR, F Routine 10/30/2023 1:31 PM CDT Diarrhea MICROSCOPIC AUTOMATED Routine 10/29/2023 6:24 AM CDT UA DIPSTICK W/MICROSCOPIC RESEARCH Routine 10/29/2023 6:24 AM CDT Cholangiocarcinoma (HCC) Assisted Current Drug Therapy, Chemotherapy Peritoneal Carcinomatosis (HCC) Neutropenia Chemotherapy Induced (HCC) NT-PRO B-TYPE NATRIURETIC PEPTIDE (BNP), S Routine 10/29/2023 6:12 AM CDT Cholangiocarcinoma (HCC) Coding File Clerk Current Drug Therapy, Chemotherapy Peritoneal Carcinomatosis (HCC) Neutropenia Chemotherapy Induced (HCC) TROPONIN I, HIGH SENSITIVITY, P Routine 10/29/2023 6:12 AM CDT Cholangiocarcinoma (HCC) Coding File Clerk Current Drug Therapy, Chemotherapy Peritoneal Carcinomatosis (HCC) Neutropenia Chemotherapy Induced (HCC) LIPASE, S/P Routine 10/29/2023 6:12 AM CDT Cholangiocarcinoma (HCC) Coding File Clerk Current Drug Therapy, Chemotherapy Peritoneal Carcinomatosis (HCC) Neutropenia Chemotherapy Induced (HCC) AMYLASE, TOT, S Routine 10/29/2023 6:12 AM CDT Cholangiocarcinoma (HCC) Assisted Current Drug Therapy, Chemotherapy Peritoneal Carcinomatosis (HCC) Neutropenia Chemotherapy Induced (HCC) PHOSPHORUS (INORGANIC), S Routine 10/29/2023 6:12 AM CDT Cholangiocarcinoma (HCC) Coding File Clerk Current Drug Therapy, Chemotherapy Peritoneal Carcinomatosis (HCC) Neutropenia Chemotherapy Induced (HCC) MAGNESIUM, S Routine 10/29/2023 6:12 AM CDT Cholangiocarcinoma (HCC) Coding File Clerk Current Drug Therapy, Chemotherapy Peritoneal Carcinomatosis (HCC) Neutropenia Chemotherapy Induced (HCC) URIC ACID, S/P Routine 10/29/2023 6:12 AM CDT Cholangiocarcinoma (HCC) Assisted Current Drug Therapy, Chemotherapy Peritoneal Carcinomatosis (HCC) Neutropenia Chemotherapy Induced (HCC) LACTATE DEHYDROGENASE (LD), S Routine 10/29/2023 6:12 AM CDT Cholangiocarcinoma (HCC) Coding File Clerk Current Drug Therapy, Chemotherapy Peritoneal Carcinomatosis (HCC) Neutropenia Chemotherapy Induced (HCC) COMPREHENSIVE METABOLIC PANEL, S/P Routine 10/29/2023 6:12 AM CDT Cholangiocarcinoma (HCC) Coding File Clerk Current Drug Therapy, Chemotherapy Peritoneal Carcinomatosis (HCC) Neutropenia Chemotherapy Induced (HCC) CBC WITH DIFFERENTIAL, B Routine 10/29/2023 6:12 AM CDT Cholangiocarcinoma (HCC) Assisted Current Drug Therapy, Chemotherapy Peritoneal Carcinomatosis (HCC) Neutropenia Chemotherapy Induced (HCC) CRITICAL CARE Routine 10/24/2023 10:51 AM CDT DIPSTICK, U Routine 10/24/2023 9:36 AM CDT PH, U Routine 10/24/2023 9:36 AM CDT MICROSCOPIC AUTOMATED Routine 10/24/2023 9:36 AM CDT OSMOLALITY, U Routine 10/24/2023 9:36 AM CDT URINALYSIS WITH MICROSCOPIC Routine 10/24/2023 9:36 AM CDT BASIC METABOLIC PANEL, S/P Routine 10/24/2023 12:34 AM CDT CBC WITH DIFFERENTIAL, B Routine 10/24/2023 12:34 AM CDT GI PATHOGEN PANEL, PCR, F Routine 10/23/2023 2:57 PM CDT CBC WITH DIFFERENTIAL, B Routine 10/23/2023 12:22 AM CDT BASIC METABOLIC PANEL, S/P Routine 10/23/2023 12:22 AM CDT FL FLUORO LESS THAN 1 HOUR RAD - Routine (most inpatients and all outpatients) 10/22/2023 2:02 PM CDT LDA ANE ENDOTRACHEAL AIRWAY Routine 10/22/2023 1:27 PM CDT GLUCOSE POCT, B Routine 10/22/2023 1:09 PM CDT ERCP Routine 10/22/2023 12:50 PM CDT ERCP Routine 10/22/2023 12:50 PM CDT GASTROENTEROLOGY IMAGE EXAM Routine 10/22/2023 12:50 PM CDT PROTHROMBIN TIME (PT), P Timed 10/22/2023 12:30 PM CDT US GALLBLADDER AND OR BILIARY DUCTS RAD - Semiurgent (Fast; most ED patients; some inpatients) 10/22/2023 6:29 AM CDT HEPATIC FUNCTION PANEL, S STAT 10/22/2023 5:59 AM CDT BACTERIA / MARIAM CULTURE, BLOOD STAT 10/22/2023 4:20 AM CDT LACTATE FOR SEPSIS WITH REFLEX, POCT STAT 10/22/2023 4:14 AM CDT BASIC METABOLIC PANEL, S/P STAT 10/22/2023 4:13 AM CDT CBC WITH DIFFERENTIAL, B STAT 10/22/2023 4:13 AM CDT BACTERIA / MARIAM CULTURE, BLOOD STAT 10/22/2023 4:12 AM CDT DX CHEST AP OR PA AND LATERAL 2 VIEWS RAD - Semiurgent (Fast; most ED patients; some inpatients) 10/22/2023 3:56 AM CDT INFLUENZA A, B, RSV, PCR, RAPID, V STAT 10/22/2023 3:44 AM CDT SARS CORONAVIRUS 2, PCR RAPID, V STAT 10/22/2023 3:44 AM CDT HC URINALYSIS AUTO WO MICRO Routine 10/22/2023 3:36 AM CDT PH, U STAT 10/22/2023 3:33 AM CDT DIPSTICK, U STAT 10/22/2023 3:33 AM CDT OSMOLALITY, U STAT 10/22/2023 3:33 AM CDT MICROSCOPIC AUTOMATED STAT 10/22/2023 3:33 AM CDT URINALYSIS WITH MICROSCOPIC STAT 10/22/2023 3:33 AM CDT BACTERIAL CULTURE, AEROBIC + SUSC, URINE STAT 10/22/2023 3:33 AM CDT ECG STAT 10/22/2023 3:22 AM CDT URINALYSIS WITH MICROSCOPIC IF INDICATED, U STAT 10/21/2023 9:[address] ABDOMEN PELVIS WITH IV CONTRAST RAD - Semiurgent (Fast; most ED patients; some inpatients) 10/21/2023 8:58 PM CDT LACTATE, B/P STAT 10/21/2023 7:59 PM CDT LIPASE, S/P STAT 10/21/2023 7:58 PM CDT HEPATIC FUNCTION PANEL, S STAT 10/21/2023 7:58 PM CDT BASIC METABOLIC PANEL, S/P STAT 10/21/2023 7:58 PM CDT CBC WITH DIFFERENTIAL, B STAT 10/21/2023 7:58 PM CDT CBC WITH DIFFERENTIAL, B Routine 10/15/2023 7:31 AM CDT Cholangiocarcinoma (HCC) Peritoneal Carcinomatosis (HCC) Neutropenia Chemotherapy Induced (HCC) Assisted Current Drug Therapy, Chemotherapy ACTIVATED PARTIAL THROMBOPLASTIN TIME (APTT), P Routine 10/08/2023 7:59 AM CDT Cholangiocarcinoma (HCC) Peritoneal Carcinomatosis (HCC) Neutropenia Chemotherapy Induced (HCC) Assisted Current Drug Therapy, Chemotherapy PROTHROMBIN TIME (PT), P Routine 10/08/2023 7:59 AM CDT Cholangiocarcinoma (HCC) Peritoneal Carcinomatosis (HCC) Neutropenia Chemotherapy Induced (HCC) Coding File Clerk Current Drug Therapy, Chemotherapy NT-PRO B-TYPE NATRIURETIC PEPTIDE (BNP), S Routine 10/08/2023 7:59 AM CDT Cholangiocarcinoma (HCC) Peritoneal Carcinomatosis (HCC) Neutropenia Chemotherapy Induced (HCC) Assisted Current Drug Therapy, Chemotherapy TROPONIN I, HIGH SENSITIVITY, P Routine 10/08/2023 7:59 AM CDT Cholangiocarcinoma (HCC) Peritoneal Carcinomatosis (HCC) Neutropenia Chemotherapy Induced (HCC) Coding File Clerk Current Drug Therapy, Chemotherapy LIPASE, S/P Routine 10/08/2023 7:59 AM CDT Cholangiocarcinoma (HCC) Peritoneal Carcinomatosis (HCC) Neutropenia Chemotherapy Induced (HCC) Coding File Clerk Current Drug Therapy, Chemotherapy AMYLASE, TOT, S Routine 10/08/2023 7:59 AM CDT Cholangiocarcinoma (HCC) Peritoneal Carcinomatosis (HCC) Neutropenia Chemotherapy Induced (HCC) Assisted Current Drug Therapy, Chemotherapy PHOSPHORUS (INORGANIC), S Routine 10/08/2023 7:59 AM CDT Cholangiocarcinoma (HCC) Peritoneal Carcinomatosis (HCC) Neutropenia Chemotherapy Induced (HCC) Assisted Current Drug Therapy, Chemotherapy MAGNESIUM, S Routine 10/08/2023 7:59 AM CDT Cholangiocarcinoma (HCC) Peritoneal Carcinomatosis (HCC) Neutropenia Chemotherapy Induced (HCC) Coding File Clerk Current Drug Therapy, Chemotherapy URIC ACID, S/P Routine 10/08/2023 7:59 AM CDT Cholangiocarcinoma (HCC) Peritoneal Carcinomatosis (HCC) Neutropenia Chemotherapy Induced (HCC) Assisted Current Drug Therapy, Chemotherapy LACTATE DEHYDROGENASE (LD), S Routine 10/08/2023 7:59 AM CDT Cholangiocarcinoma (HCC) Peritoneal Carcinomatosis (HCC) Neutropenia Chemotherapy Induced (HCC) Assisted Current Drug Therapy, Chemotherapy COMPREHENSIVE METABOLIC PANEL, S/P Routine 10/08/2023 7:59 AM CDT Cholangiocarcinoma (HCC) Peritoneal Carcinomatosis (HCC) Neutropenia Chemotherapy Induced (HCC) Coding File Clerk Current Drug Therapy, Chemotherapy CBC WITH DIFFERENTIAL, B Routine 10/08/2023 7:59 AM CDT Cholangiocarcinoma (HCC) Peritoneal Carcinomatosis (HCC) Neutropenia Chemotherapy Induced (HCC) Coding File Clerk Current Drug Therapy, Chemotherapy MICROSCOPIC AUTOMATED Routine 10/08/2023 7:21 AM CDT UA DIPSTICK W/MICROSCOPIC RESEARCH Routine 10/08/2023 7:21 AM CDT Cholangiocarcinoma (HCC) Peritoneal Carcinomatosis (HCC) Neutropenia Chemotherapy Induced (HCC) Coding File Clerk Current Drug Therapy, Chemotherapy CT ABDOMEN PELVIS WITH IV CONTRAST RAD - Routine (most inpatients and all outpatients) 10/01/2023 8:46 AM CDT Cholangiocarcinoma (HCC) CT CHEST WITH IV CONTRAST RAD - Routine (most inpatients and all outpatients) 10/01/2023 8:46 AM CDT Cholangiocarcinoma (HCC) MICROSCOPIC AUTOMATED Routine 09/24/2023 7:35 AM CDT UA DIPSTICK W/MICROSCOPIC RESEARCH Routine 09/24/2023 7:35 AM CDT Cholangiocarcinoma (HCC) Peritoneal Carcinomatosis (HCC) Neutropenia Chemotherapy Induced (HCC) Coding File Clerk Current Drug Therapy, Chemotherapy NT-PRO B-TYPE NATRIURETIC PEPTIDE (BNP), S Routine 09/24/2023 7:21 AM CDT Cholangiocarcinoma (HCC) Peritoneal Carcinomatosis (HCC) Neutropenia Chemotherapy Induced (HCC) Assisted Current Drug Therapy, Chemotherapy TROPONIN I, HIGH SENSITIVITY, P Routine 09/24/2023 7:21 AM CDT Cholangiocarcinoma (HCC) Peritoneal Carcinomatosis (HCC) Neutropenia Chemotherapy Induced (HCC) Assisted Current Drug Therapy, Chemotherapy LIPASE, S/P Routine 09/24/2023 7:21 AM CDT Cholangiocarcinoma (HCC) Peritoneal Carcinomatosis (HCC) Neutropenia Chemotherapy Induced (HCC) Assisted Current Drug Therapy, Chemotherapy AMYLASE, TOT, S Routine 09/24/2023 7:21 AM CDT Cholangiocarcinoma (HCC) Peritoneal Carcinomatosis (HCC) Neutropenia Chemotherapy Induced (HCC) Coding File Clerk Current Drug Therapy, Chemotherapy PHOSPHORUS (INORGANIC), S Routine 09/24/2023 7:21 AM CDT Cholangiocarcinoma (HCC) Peritoneal Carcinomatosis (HCC) Neutropenia Chemotherapy Induced (HCC) Coding File Clerk Current Drug Therapy, Chemotherapy MAGNESIUM, S Routine 09/24/2023 7:21 AM CDT Cholangiocarcinoma (HCC) Peritoneal Carcinomatosis (HCC) Neutropenia Chemotherapy Induced (HCC) Assisted Current Drug Therapy, Chemotherapy URIC ACID, S/P Routine 09/24/2023 7:21 AM CDT Cholangiocarcinoma (HCC) Peritoneal Carcinomatosis (HCC) Neutropenia Chemotherapy Induced (HCC) Assisted Current Drug Therapy, Chemotherapy LACTATE DEHYDROGENASE (LD), S Routine 09/24/2023 7:21 AM CDT Cholangiocarcinoma (HCC) Peritoneal Carcinomatosis (HCC) Neutropenia Chemotherapy Induced (HCC) Coding File Clerk Current Drug Therapy, Chemotherapy COMPREHENSIVE METABOLIC PANEL, S/P Routine 09/24/2023 7:21 AM CDT Cholangiocarcinoma (HCC) Peritoneal Carcinomatosis (HCC) Neutropenia Chemotherapy Induced (HCC) Assisted Current Drug Therapy, Chemotherapy CBC WITH DIFFERENTIAL, B Routine 09/24/2023 7:21 AM CDT Cholangiocarcinoma (HCC) Peritoneal Carcinomatosis (HCC) Neutropenia Chemotherapy Induced (HCC) Coding File Clerk Current Drug Therapy, Chemotherapy CARBOHYDRATE AG 19-9 (CA 19-9), S Routine 09/24/2023 7:19 AM CDT Cholangiocarcinoma (HCC) CBC WITH DIFFERENTIAL, B Routine 09/17/2023 7:42 AM CDT Cholangiocarcinoma (HCC) Peritoneal Carcinomatosis (HCC) Neutropenia Chemotherapy Induced (HCC) Coding File Clerk Current Drug Therapy, Chemotherapy (TTE) 2D ECHO DOPPLER COLOR Routine 09/10/2023 12:35 PM CDT Cholangiocarcinoma (HCC) MICROSCOPIC AUTOMATED Routine 09/10/2023 9:51 AM CDT UA DIPSTICK W/MICROSCOPIC RESEARCH Routine 09/10/2023 9:51 AM CDT Cholangiocarcinoma (HCC) Peritoneal Carcinomatosis (HCC) Neutropenia Chemotherapy Induced (HCC) Assisted Current Drug Therapy, Chemotherapy ACTIVATED PARTIAL THROMBOPLASTIN TIME (APTT), P Routine 09/10/2023 9:23 AM CDT Cholangiocarcinoma (HCC) Peritoneal Carcinomatosis (HCC) Neutropenia Chemotherapy Induced (HCC) Coding File Clerk Current Drug Therapy, Chemotherapy PROTHROMBIN TIME (PT), P Routine 09/10/2023 9:23 AM CDT Cholangiocarcinoma (HCC) Peritoneal Carcinomatosis (HCC) Neutropenia Chemotherapy Induced (HCC) Assisted Current Drug Therapy, Chemotherapy NT-PRO B-TYPE NATRIURETIC PEPTIDE (BNP), S Routine 09/10/2023 9:23 AM CDT Cholangiocarcinoma (HCC) Peritoneal Carcinomatosis (HCC) Neutropenia Chemotherapy Induced (HCC) Coding File Clerk Current Drug Therapy, Chemotherapy TROPONIN I, HIGH SENSITIVITY, P Routine 09/10/2023 9:23 AM CDT Cholangiocarcinoma (HCC) Peritoneal Carcinomatosis (HCC) Neutropenia Chemotherapy Induced (HCC) Coding File Clerk Current Drug Therapy, Chemotherapy LIPASE, S/P Routine 09/10/2023 9:23 AM CDT Cholangiocarcinoma (HCC) Peritoneal Carcinomatosis (HCC) Neutropenia Chemotherapy Induced (HCC) Assisted Current Drug Therapy, Chemotherapy AMYLASE, TOT, S Routine 09/10/2023 9:23 AM CDT Cholangiocarcinoma (HCC) Peritoneal Carcinomatosis (HCC) Neutropenia Chemotherapy Induced (HCC) Coding File Clerk Current Drug Therapy, Chemotherapy PHOSPHORUS (INORGANIC), S Routine 09/10/2023 9:23 AM CDT Cholangiocarcinoma (HCC) Peritoneal Carcinomatosis (HCC) Neutropenia Chemotherapy Induced (HCC) Coding File Clerk Current Drug Therapy, Chemotherapy MAGNESIUM, S Routine 09/10/2023 9:23 AM CDT Cholangiocarcinoma (HCC) Peritoneal Carcinomatosis (HCC) Neutropenia Chemotherapy Induced (HCC) Coding File Clerk Current Drug Therapy, Chemotherapy URIC ACID, S/P Routine 09/10/2023 9:23 AM CDT Cholangiocarcinoma (HCC) Peritoneal Carcinomatosis (HCC) Neutropenia Chemotherapy Induced (HCC) Coding File Clerk Current Drug Therapy, Chemotherapy LACTATE DEHYDROGENASE (LD), S Routine 09/10/2023 9:23 AM CDT Cholangiocarcinoma (HCC) Peritoneal Carcinomatosis (HCC) Neutropenia Chemotherapy Induced (HCC) Coding File Clerk Current Drug Therapy, Chemotherapy COMPREHENSIVE METABOLIC PANEL, S/P Routine 09/10/2023 9:23 AM CDT Cholangiocarcinoma (HCC) Peritoneal Carcinomatosis (HCC) Neutropenia Chemotherapy Induced (HCC) Coding File Clerk Current Drug Therapy, Chemotherapy CBC WITH DIFFERENTIAL, B Routine 09/10/2023 9:23 AM CDT Cholangiocarcinoma (HCC) Peritoneal Carcinomatosis (HCC) Neutropenia Chemotherapy Induced (HCC) Coding File Clerk Current Drug Therapy, Chemotherapy TROPONIN T, 2H/6H REFLEX, 5TH GEN, P Timed 09/03/2023 5:[address] CHEST ANGIOGRAM AND PULMONARY ARTERIES WITH IV CONTRAST RAD - Semiurgent (Fast; most ED patients; some inpatients) 09/03/2023 4:[address] HEAD NECK ANGIOGRAM WITH IV CONTRAST RAD - Emergent (Fastest; for the most critically ill patients) 09/03/2023 4:18 AM CDT MORPHOLOGY EVALUATION STAT 09/03/2023 3:21 AM CDT MANUAL DIFFERENTIAL, B STAT 09/03/2023 3:21 AM CDT ACTIVATED PARTIAL THROMBOPLASTIN TIME (APTT), P STAT 09/03/2023 3:21 AM CDT PROTHROMBIN TIME (PT), P STAT 09/03/2023 3:21 AM CDT TROPONIN T, BASELINE, 5TH GEN, P STAT 09/03/2023 3:21 AM CDT BASIC METABOLIC PANEL, S/P STAT 09/03/2023 3:21 AM CDT CBC WITH DIFFERENTIAL, B STAT 09/03/2023 3:21 AM CDT ECG STAT 09/03/2023 2:47 AM CDT MICROSCOPIC AUTOMATED Routine 08/27/2023 9:18 AM CDT UA DIPSTICK W/MICROSCOPIC RESEARCH Routine 08/27/2023 9:18 AM CDT Cholangiocarcinoma (HCC) NT-PRO B-TYPE NATRIURETIC PEPTIDE (BNP), S Routine 08/27/2023 9:05 AM CDT Cholangiocarcinoma (HCC) TROPONIN I, HIGH SENSITIVITY, P Routine 08/27/2023 9:05 AM CDT Cholangiocarcinoma (HCC) LIPASE, S/P Routine 08/27/2023 9:05 AM CDT Cholangiocarcinoma (HCC) AMYLASE, TOT, S Routine 08/27/2023 9:05 AM CDT Cholangiocarcinoma (HCC) PHOSPHORUS (INORGANIC), S Routine 08/27/2023 9:05 AM CDT Cholangiocarcinoma (HCC) MAGNESIUM, S Routine 08/27/2023 9:05 AM CDT Cholangiocarcinoma (HCC) URIC ACID, S/P Routine 08/27/2023 9:05 AM CDT Cholangiocarcinoma (HCC) LACTATE DEHYDROGENASE (LD), S Routine 08/27/2023 9:05 AM CDT Cholangiocarcinoma (HCC) COMPREHENSIVE METABOLIC PANEL, S/P Routine 08/27/2023 9:05 AM CDT Cholangiocarcinoma (HCC) CBC WITH DIFFERENTIAL, B Routine 08/27/2023 9:05 AM CDT Cholangiocarcinoma (HCC) CBC WITH DIFFERENTIAL, B Routine 08/20/2023 9:15 AM CDT Cholangiocarcinoma (HCC) MICROSCOPIC AUTOMATED Routine 08/13/2023 11:16 AM CDT UA DIPSTICK W/MICROSCOPIC RESEARCH Routine 08/13/2023 11:16 AM CDT Cholangiocarcinoma (HCC) ACTIVATED PARTIAL THROMBOPLASTIN TIME (APTT), P Routine 08/13/2023 10:13 AM CDT Cholangiocarcinoma (HCC) PROTHROMBIN TIME (PT), P Routine 08/13/2023 10:13 AM CDT Cholangiocarcinoma (HCC) NT-PRO B-TYPE NATRIURETIC PEPTIDE (BNP), S Routine 08/13/2023 10:13 AM CDT Cholangiocarcinoma (HCC) TROPONIN I, HIGH SENSITIVITY, P Routine 08/13/2023 10:13 AM CDT Cholangiocarcinoma (HCC) LIPASE, S/P Routine 08/13/2023 10:13 AM CDT Cholangiocarcinoma (HCC) AMYLASE, TOT, S Routine 08/13/2023 10:13 AM CDT Cholangiocarcinoma (HCC) PHOSPHORUS (INORGANIC), S Routine 08/13/2023 10:13 AM CDT Cholangiocarcinoma (HCC) MAGNESIUM, S Routine 08/13/2023 10:13 AM CDT Cholangiocarcinoma (HCC) URIC ACID, S/P Routine 08/13/2023 10:13 AM CDT Cholangiocarcinoma (HCC) LACTATE DEHYDROGENASE (LD), S Routine 08/13/2023 10:13 AM CDT Cholangiocarcinoma (HCC) COMPREHENSIVE METABOLIC PANEL, S/P Routine 08/13/2023 10:13 AM CDT Cholangiocarcinoma (HCC) CBC WITH DIFFERENTIAL, B Routine 08/13/2023 10:13 AM CDT Cholangiocarcinoma (HCC) LIPID PANEL, S Routine 01/25/2023 8:49 AM CDT Pure Hypercholesterolemia from Last 3 Months or Most Recently Relevant to Health Maintenance Results * US Urinary Bladder (11/01/2023 11:58 AM CDT) Anatomical Region Laterality Modality Body, Ultrasound RST LOS, Ul trasound ARZ LOS, Ultrasound FLA LOS Ultrasound Impressions 11/01/2023 12:38 PM CDT Large postvoid residual Narrative 11/01/2023 12:38 PM CDT EXAM: US URINARY BLADDER COMPARISON: None FINDINGS: Prevoid imaging shows bladder volume of 120 mL. Following initial attempt at voiding, bladder volume actually increased to 135 mL. Following a second attempt at voiding, latter volume decreased to 106 mL. Incidental ascites. Procedure Note Sha Luis M.D. - 11/01/2023 EXAM: US URINARY BLADDER COMPARISON: None FINDINGS: Prevoid imaging shows bladder volume of 120 mL. Followinginitial attempt at voiding, bladder volume actually increased to 135 mL.Following a second attempt at voiding, latter volume decreased to 106 mL.Incidental ascites. IMPRESSION: Large postvoid residual Dolores Rosario APRN, C.N.P., M.S. IMG US PROCEDURES * Urinalysis Dipstick with Microscopic, Research (11/01/2023 9:38 AM CDT) Only the most recent of7 resultswithin the time period is included. UADMR Source, U Urine, Urine, Clean Catch 11/01/2023 9:51 AM CDT DTL Color, U Yellow 11/01/2023 9:51 AM CDT DTL Clarity, U Clear 11/01/2023 9:51 AM CDT DTL Glucose Negative Negative mg/dL 11/01/2023 10:13 AM CDT DTL Ketones Negative Negative mg/dL 11/01/2023 10:13 AM CDT DTL Hemoglobin, QL Negative Negative 11/01/2023 10:13 AM CDT DTL Protein, U Negative Negative mg/dL 11/01/2023 10:13 AM CDT DTL Nitrite, U Negative Negative 11/01/2023 10:13 AM CDT DTL Bilirubin Negative Negative 11/01/2023 10:13 AM CDT DTL Comment: ----ADDITIONAL INFORMATION---- This test has been modified from the maintenance machinist's instructions. Its performance characteristics were determined by [facility] in a manner consistent with CLIA requirements. This test has not been cleared or approved by the U.S. Food and Drug Administration. Specific [place] 1.014 1.002 - 1.030 11/01/2023 10:13 AM CDT DTL pH, U 5.0 5.0 - 8.0 11/01/2023 10:13 AM CDT DTL Urobilinogen Normal Normal mg/dL 11/01/2023 10:13 AM CDT DTL Leukocyte Esterase Negative Negative 2023 10:13 AM CDT DTL Urine (Urine, Clean Catch) 11/01/2023 9:38 AM CDT 11/01/2023 9:51 AM CDT Na Hernandez M.D., Ph.D. LAB URINE O RDERABLES [facility] [address] [place] [address], [facility] [address] [place] [address] * Microscopic Automated (11/01/2023 9:38 AM CDT) Only the most recent of9 resultswithin the time period is included. Pathologist [facility] Microscopy Normal 11/01/2023 10:13 AM CDT DTL RBC None Seen <3 /hpf 11/01/2023 10:13 AM CDT DTL WBC None Seen /hpf 11/01/2023 10:13 AM CDT DTL Comment: ----REFERENCE VALUE---- <4 ??(Males) <11 (Females) Casts, Hyaline 4-10 /lpf 11/01/2023 10:13 AM CDT DTL Urine 11/01/2023 9:38 AM CDT 11/01/2023 9:51 AM CDT Na Hernandez M.D., Ph.D. LAB URINE O RDERABLES Performing Organization Address City/[facility] [place] [address] * Troponin I, High Sensitivity (11/01/2023 9:20 AM CDT) Only the most recent of7 resultswithin the time period is included. [facility] TROPONIN I, HIGH SENSITIVITY, P 7 <=20 ng/L 11/01/2023 12:05 PM CDT DT Blood (Blood, Venous) 11/01/2023 9:20 AM CDT 11/01/2023 9:59 AM CDT Na Hernandez M.D., Ph.D. LAB BLOOD N ON ADD-ON Performing Organization Address City/[facility]/[place] [address] * PSA (Prostate-Specific Antigen) Screen (11/01/2023 9:20 AM CDT) [facility] Prostate-Specific Ag 0.49 <=6.5 ng/mL 11/01/2023 10:30 AM CDT DT Comment: ----ADDITIONAL INFORMATION---- The testing method is an electrochemiluminescence assay manufactured by [employer] and performed on the Modular or Jaleel system. Values obtained with different assay methods or kits may be different and cannot be used interchangeably. Test results cannot be interpreted as absolute evidence for the presence or absence of malignant disease. Blood (Blood, Venous) 11/01/2023 9:20 AM CDT 11/01/2023 9:56 AM CDT Sara Marino APRNN.P., M.S. LAB BLOOD ADD-ON Performing Organization Address City/[facility]/ZIP Co de Phone Number [facility] [address] [place], [place] [id number] [place] [phone] * (ABNORMAL) NT-Pro B-Type Natriuretic Peptide (BNP) (11/01/2023 9:20 AM CDT) Only the most recent of7 resultswithin the time period is included. NT-Pro BNP 550(H) <=540 pg/mL 11/01/2023 10:30 AM CDT DT Comment: NT-proBNP values less than 300 pg/mL have a 99% negative predictive value for excluding acute congestive heart failure. A cutoff of 1200 pg/mL for patients with an eGFR<60 yields a diagnostic sensitivity and specificity of 89% and 72% for acute congestive heart failure. A diagnostic NT-proBNP cutoff of 900 pg/mL has been suggested in adults 50-75 years of age in the absence of renal failure. Blood (Blood, Venous) 11/01/2023 9:20 AM CDT 11/01/2023 9:56 AM CDT Na Hernandez M.D., Ph.D. LAB BLOOD A DD-ON Performing Organization Address [facility]/ZIP Co de Phone Number [facility] [address] [place], [place] [id number] [place] [address] DTL [facility] [address] * (ABNORMAL) CBC with Differential, Blood (11/01/2023 9:20 AM CDT) Only the most recent of15 resultswithin the time period is included. Hemoglobin 9.8(L) 13.2 - 16.6 g/dL 11/01/2023 9:54 AM CDT DTL Hematocrit 31.5(L) 38.3 - 48.6 % 11/01/2023 9:54 AM CDT DTL Erythrocytes 3.08(L) 4.35 - 5.65 x10(12)/L 11/01/2023 9:54 AM CDT DTL MCV 102.3(H) 78.2 - 97.9 fL 11/01/2023 9:54 AM CDT DTL RBC Distrib Width 16.1(H) 11.8 - 14.5 % 11/01/2023 9:54 AM CDT DTL Platelet Count 227 135 - 317 x10(9)/L 11/01/2023 9:54 AM CDT DTL Leukocytes 5.1 3.4 - 9.6 x10(9)/L 11/01/2023 9:54 AM CDT DTL Neutrophils 3.63 1.56 - 6.45 x10(9)/L 11/01/2023 9:54 AM CDT DHPM Lymphocytes 0.71(L) 0.95 - 3.07 x10(9)/L 11/01/2023 9:54 AM CDT DTL Monocytes 0.62 0.26 - 0.81 x10(9)/L 11/01/2023 9:54 AM CDT DTL Eosinophils 0.08 0.03 - 0.48 x10(9)/L 11/01/2023 9:54 AM CDT DTL Basophils <0.03 0.01 - 0.08 x10(9)/L 11/01/2023 9:54 AM CDT DTL Blood (Blood, Venous) 11/01/2023 9:20 AM CDT 11/01/2023 9:45 AM CDT Na B Conboy M.D., Ph.D. LAB BLOOD A DD-ON [facility] [address] [place] [address], [facility] [address] [place] [address] [facility] [address] [place] [address] * Uric Acid (11/01/2023 9:20 AM CDT) Only the most recent of7 resultswithin the time period is included. Uric Acid, S 6.2 3.7 - 8.0 mg/dL 11/01/2023 10:30 AM CDT DTL Blood (Blood, Venous) 11/01/2023 9:20 AM CDT 11/01/2023 9:56 AM CDT Na Hernandez M.D., Ph.D. LAB BLOOD A DD-ON Performing Organization Address City/[facility]/ZIP Co de Phone Number [facility] [address] [place] [address], [facility] [address] [place] [address] * Phosphorus Inorganic (11/01/2023 9:20 AM CDT) Only the most recent of7 resultswithin the time period is included. Phosphorus (Inorganic), S 3.2 2.5 - 4.5 mg/dL 11/01/2023 10:30 AM CDT DTL Blood (Blood, Venous) 11/01/2023 9:20 AM CDT 11/01/2023 9:56 AM CDT Na Hernandez M.D., Ph.D. LAB BLOOD A DD-ON [facility] [address] [place] [address], [facility] [address] [place] [address] * Magnesium (11/01/2023 9:20 AM CDT) Only the most recent of7 resultswithin the time period is included. [facility] Magnesium, S 2.0 1.7 - 2.3 mg/dL 11/01/2023 10:30 AM CDT DTL Blood (Blood, Venous) 11/01/2023 9:20 AM CDT 11/01/2023 9:56 AM CDT Na Hernandez M.D., Ph.D. LAB BLOOD A DD-ON Performing Organization Address City/[facility]/ZIP Co de Phone Number [facility] [address] [place] [address] * Lipase (11/01/2023 9:20 AM CDT) Only the most recent of8 resultswithin the time period is included. [facility] Lipase, S 58 13 - 60 U/L 11/01/2023 10:30 AM CDT DT Blood (Blood, Venous) 11/01/2023 9:20 AM CDT 11/01/2023 9:56 AM CDT Na Hernandez M.D., Ph.D. LAB BLOOD A DD-ON Performing Organization Address City/[facility]/ZIP Co de Phone Number [facility] [address] [place] [address] * LD (Lactate Dehydrogenase) (11/01/2023 9:20 AM CDT) Only the most recent of7 resultswithin the time period is included. [facility] LD 191 122 - 222 U/L 11/01/2023 10:20 AM CDT DTL Blood (Blood, Venous) 11/01/2023 9:20 AM CDT 11/01/2023 9:56 AM CDT Na Hernandez M.D., Ph.D. LAB BLOOD N ON ADD-ON Performing Organization Address City/[facility] Co de Phone Number [facility] [address] [place] [address], [address] [address] * Amylase, Total (11/01/2023 9:20 AM CDT) Only the most recent of7 resultswithin the time period is included. Amylase, Total, S 47 28 - 100 U/L 11/01/2023 10:30 AM CDT DTL Blood (Blood, Venous) 11/01/2023 9:20 AM CDT 11/01/2023 9:56 AM CDT Na Hernandez M.D., Ph.D. LAB BLOOD A DD-ON Performing Organization Address [facility] de Phone Number [facility] [address] [place] [address], [facility] [address] [place] [address] * (ABNORMAL) Comprehensive Metabolic Panel (11/01/2023 9:20 AM CDT) Only the most recent of7 resultswithin the time period is included. Potassium, S 4.7 3.6 - 5.2 mmol/L 11/01/2023 10:30 AM CDT DTL Sodium, S 139 135 - 145 mmol/L 11/01/2023 10:30 AM CDT DTL Chloride, S 109(H) 98 - 107 mmol/L 11/01/2023 10:30 AM CDT DTL Bicarbonate, S 21(L) 22 - 29 mmol/L 11/01/2023 10:30 AM CDT DTL Anion Gap 9 7 - 15 11/01/2023 10:30 AM CDT DTL BUN (Blood Urea Nitrogen), S 22 8 - 24 mg/dL 11/01/2023 10:30 AM CDT DTL Creatinine 1.19 0.74 - 1.35 mg/dL 11/01/2023 10:30 AM CDT DTL Estimated GFR (eGFR) 66 >=60 mL/min/BS A 11/01/2023 10:30 AM CDT DTL Comment: Estimated GFR calculated using the 2020 CKD_EPI creatinine equation. Calcium, Total, S 8.5(L) 8.8 - 10.2 mg/dL 11/01/2023 10:30 AM CDT DTL Glucose, S 98 70 - 140 mg/dL 11/01/2023 10:30 AM CDT DTL Protein, Total, S 6.0(L) 6.3 - 7.9 g/dL 11/01/2023 10:30 AM CDT DTL Albumin, S 3.6 3.5 - 5.0 g/dL 11/01/2023 10:30 AM CDT DTL Aspartate Aminotransferase (AST), S 24 8 - 48 U/L 11/01/2023 10:30 AM CDT DTL Alkaline Phosphatase, S 283(H) 40 - 129 U/L 11/01/2023 10:30 AM CDT DTL Alanine Aminotransferase (ALT), S 64(H) 7 - 55 U/L 11/01/2023 10:30 AM CDT DTL Bilirubin, Total, S 0.2 0.0 - 1.2 mg/dL 11/01/2023 10:30 AM CDT DTL Blood (Blood, Venous) 11/01/2023 9:20 AM CDT 11/01/2023 9:56 AM CDT Na Hernandez M.D., Ph.D. LAB BLOOD A DD-ON [facility] [address] [place] [address], [facility] [address] [place] [address] * Clostridioides (Clostridium) Difficile Toxin, Molecular Detection, PCR, Feces (10/30/2023 1:31 PM CDT) C. difficile Toxin PCR, F Negative Negative 10/30/2023 7:54 PM CDT RDWG Stool (Stool) 10/30/2023 1:3 1 PM CDT 10/30/2023 7:00 PM CDT Mark Colorado M.D. LAB MICROBIOLOGY - G ENERAL ORDERABLES [facility] [address] [place] [address], [facility] RDWG [facility] [place] [address] [place] [address] * Critical Care (10/24/2023 10:51 AM CDT) Narrative Donna Prince M.D., M.P.H. - 10/24/2023 10:51 AM CDT Donna Prince M.D., M.P.H. ? 10/24/2023 10:51 AM Critical Care Performed by: Donna Prince M.D., M.P.H. Authorized by: Donna Prince M.D., M.P.H. ?? Critical care provider statement: Critical care total time (minutes): 30 Critical care time was exclusive of: separately billable procedures and treating other patients and teaching time CPR was performed on this patient: no ?? Critical care was necessary to treat or prevent imminent or life-threatening deterioration of the following conditions: sepsis Critical care was time spent personally by me on the following activities: development of treatment plan with patient or surrogate, evaluation of patient's response to treatment, examination of patient, review of old charts, re-evaluation of patient's condition, pulse oximetry, ordering and review of radiographic studies, ordering and review of laboratory studies, ordering and performing treatments and interventions and obtaining history from patient or surrogate I assumed direction of critical care for this patient from another provider in my specialty: no ?? Donna Prince M.D., M.P.H. PROCEDURE/M INOR SURGICAL ORDERABLES * Dipstick, Urine (10/24/2023 9:36 AM CDT) Only the most recent of2 resultswithin the time period is included. Hemoglobin, QL, U Negative Negative 10/24/2023 10:28 AM CDT DTL Leukocyte Esterase, U Negative Negative 10/24/2023 10:28 AM CDT DTL Nitrite, U Negative Negative 10/24/2023 10:28 AM CDT DTL Ketone, U Negative Negative mg/dL 10/24/2023 10:28 AM CDT DTL Glucose, U Negative Negative mg/dL 10/24/2023 10:28 AM CDT DTL Urine 10/24/2023 9:36 AM CDT 10/24/2023 9:58 AM CDT Chito Duran M.D. LAB URINE ORDERABLES Performing Organization Address City/[facility]/ZIP Co de Phone Number [facility] [address] [place] [address] * pH, Urine (10/24/2023 9:36 AM CDT) Only the most recent of2 resultswithin the time period is included. Pathologist [facility] pH, U 6.3 4.5 - 8.0 10/24/2023 10: 32 AM CDT DT Urine 10/24/2023 9:36 AM CDT 10/24/2023 9:58 AM CDT Chito Duran M.D. LAB URINE ORDERABLES [facility] [address] [place] [address], [place] [address] * Osmolality, Urine (10/24/2023 9:36 AM CDT) Only the most recent of2 resultswithin the time period is included. Osmolality, U 456 150 - 1150 mOsm/kg 10/24/2023 10:32 AM CDT DT Urine 10/24/2023 9:36 AM CDT 10/24/2023 9:58 AM CDT Chito Duran M.D. LAB URINE ORDERABLES Performing Organization Address City/[facility]/ZIP Co de Phone Number [facility] [address] [place] [address], [facility] [address] [place] [address] * Urinalysis, with Microscopic: Urine, Midstream (10/24/2023 9:36 AM CDT) Only the most recent of2 resultswithin the time period is included. Source Urine, Urine, Midstream 10/24/2023 9:58 AM CDT DTL Color, U Yellow 10/24/2023 9:58 AM CDT DTL Clarity, U Clear 10/24/2023 9:58 AM CDT DTL Protein, U 9 <26 mg/dL 10/24/2023 10:40 AM CDT DTL Protein/Osmol ality 0.20 <0.42 ratio 10/24/2023 10:40 AM CDT DTL Predicted 24 HR Protein, U 201 <229 mg/24 h 10/24/2023 10:40 AM CDT DTL Predicted Range 64-632 mg/24 h 10/24/2023 10:40 AM CDT DTL Urine (Urine, Midstream) 10/24/2023 9:36 AM CDT 10/24/2023 9:58 AM CDT Chito Duran M.D. LAB URINE ORDERABLES [facility] [address] [place] [address], [facility] [address] [place] [address] * (ABNORMAL) Basic Metabolic Panel (10/24/2023 12:34 AM CDT) Only the most recent of5 resultswithin the time period is included. Potassium, S 4.1 3.6 - 5.2 mmol/L 10/24/2023 1:31 AM CDT DTL Sodium, S 139 135 - 145 mmol/L 10/24/2023 1:31 AM CDT DTL Chloride, S 109(H) 98 - 107 mmol/L 10/24/2023 1:31 AM CDT DTL Bicarbonate, S 20(L) 22 - 29 mmol/L 10/24/2023 1:31 AM CDT DTL Anion Gap 10 7 - 15 10/24/2023 1:31 AM CDT DTL BUN (Blood Urea Nitrogen), S 35(H) 8 - 24 mg/dL 10/24/2023 1:31 AM CDT DTL Creatinine 1.62(H) 0.74 - 1.35 mg/dL 10/24/2023 1:31 AM CDT DTL Estimated GFR (eGFR) 45(L) >=60 mL/min/BSA 10/24/2023 1:31 AM CDT DTL Comment: Estimated GFR calculated using the 2020 CKD_EPI creatinine equation. Calcium, Total, S 7.9(L) 8.8 - 10.2 mg/dL 10/24/2023 1:31 AM CDT DTL Glucose, S 130 70 - 140 mg/dL 10/24/2023 1:31 AM CDT DTL Blood (Blood, Venous) 10/24/2023 12:34 AM CDT 10/24/2023 1:16 AM CDT Odalys Lucio M.D. LAB BLOOD ADD-ON [facility] [address] [place] [address], [facility] [address] [place] [address] * GI Pathogen Panel, PCR, Feces (10/23/2023 2:57 PM CDT) Specimen Source STOOL 5:40 PM CDT DTL Campylobacter species Negative Negative 10/23/2023 5:40 PM CDT DTL C. difficile toxin Negative Negative 2023 5:40 PM CDT DTL Plesiomonas shigelloides Negative Negative 10/23/2023 5:40 PM CDT DTL Salmonella species Negative Negative 2023 5:40 PM CDT DTL Vibrio species Negative Negative 10/23/2023 5:40 PM CDT DTL Vibrio cholerae Negative Negative 5:40 PM CDT DTL Yersinia species Negative Negative 10/23/19 5:40 PM CDT DTL Enteroaggregative E. coli (EAEC) Negative Negative 10/23/2023 5:40 PM CDT DTL Enteropathogenic E. coli (EPEC) Negative Negative 10/23/2023 5:40 PM CDT DTL Enterotoxigenic E. coli (ETEC) Negative Negative 10/23/2023 5:40 PM CDT DTL Shiga toxin producing E. coli Negative Negative 10/23/2023 5:40 PM CDT DTL Shigella/Enteroinvas gabriel E. coli Negative Negative 10/23/2023 5:40 PM CDT DTL Cryptosporidium species Negative Negative 10/23/2023 5:40 PM CDT DTL Cyclospora cayetanensis Negative Negative 10/23/2023 5:40 PM CDT DTL Entamoeba histolytica Negative Negative 10/23/2023 5:40 PM CDT DTL Giardia Negative Negative 10/23/2023 5:40 PM CDT DTL Adenovirus F40/41 Negative Negative 024 5:40 PM CDT DTL Astrovirus Negative Negative 10/23/2023 5:40 PM CDT DTL Norovirus GI/GII Negative Negative 10/23/19 5:40 PM CDT DTL Rotavirus Ag, F Negative Negative 5:40 PM CDT DTL Sapovirus Negative Negative 10/23/2023 5:40 PM CDT DTL Comment: ----ADDITIONAL INFORMATION---- This assay is performed using the FDA-cleared Liquid MachinesArray GI Panel ([employer] Stool (Stool) 10/23/2023 2:5 7 PM CDT 10/23/2023 3:36 PM CDT Milla Snyder M.D. LAB MICROBIOLOGY - G ENERAL ORDERABLES [facility] [address] [place] [address], [facility] DT 200 [facility] [address] [place] [address] * FL Fluoro Less Than 1 Hour (10/22/2023 2:02 PM CDT) Narrative ERCP LOS RST - 10/22/2023 2:03 PM CDT This exam does not require a radiologist review or interpretation. Please refer to the patient's medical record on this date for clinical details. Hansa Ye M.D., M.S. IMG FLUORO SCOPY PROCEDURES ERCP LOS RST * LDA ANE ENDOTRACHEAL AIRWAY (10/22/2023 1:27 PM CDT) Narrative Lynsey Boyle APRN, CRNA - 10/22/2023 1:27 PM CDT Lynsey Boyle APRN, CRNA ? 10/22/2023 ??1:36 PM Airway Date/Time: 10/22/2023 1:27 PM Performed by: Lynsey Boyle APRN, CRNA Authorized by: Lynsey Boyle APRN, CRNA ?? Patient location during procedure: OR / Procedure Area PROCEDURE DETAILS: Mask difficulty assessment: not attempted Final airway type: video laryngoscope Laryngeal Manipulation: no ?? Final best view of glottic structures - Cormack/Lehane Score: grade 1 ETT location: oral VL device: glide scope [place] scope blade size: 4 Tube size: 7.5 ETT distance at teeth/gum: 21 Oral tube type: standard ETT Cuffed: yes Number of attempt to successful placement: 1 Airway confirmation: bilateral breath sounds, positive ETCO2 and bilateral chest rise PRE PROCEDURE DETAILS: Pre evaluation for airway management: procedure Urgency: elective Preop assessment of probable difficulty: no difficulty anticipated Preoxygenation: bag valve mask SEDATION / ANESTHESIA Anesthesia method: anesthesia POST PROCEDURE DETAILS: ? Procedure outcome: successful ?? Notable Events: no complications Lynsey Boyle APRN, CRNA ANESTHESIA O RDERABLES * Glucose, POCT (10/22/2023 1:09 PM CDT) Glucose, POCT, B 122 70 - 140 mg/dL 10/22/2023 1:14 PM CDT PCLX Site Capillary 10/22/2023 1:14 PM CDT PCLX Blood 10/22/2023 1:09 PM CDT 10/22/2023 1:14 PM CDT Unknown Provider LAB POCT ORDERABLES- MANUAL Performing Organization Address City/State/[facility] Co de Phone Number POC [facility] [address] [place] [address], [facility] PCLX [facility] POC [address] [place] [address] * ERCP (10/22/2023 12:50 PM CDT) 10/22/2023 12:5 0 PM CDT Impressions [facility] - 10/22/2023 2:13 PM CDT Post-op Diagnoses: ? - Acute cholangitis from two partially occluded stents in the biliary ? tree, removed and exchanged for two new stents as described ? - Prior biliary sphincterotomy appeared open. ? - The biliary tree was swept and debris, sludge and pus were found. ? - One temporary 10 Fr x 18 cm plastic stent was placed into the left ? hepatic duct. ? - One temporary 10 Fr x 17 cm plastic stent was placed into the right ? hepatic duct. Narrative [facility] - 10/22/2023 2:13 PM CDT [place] 6 GI GI Patient Name: Jorge Luis Sepulveda Date of : 1955 Age: 68 Procedure Date: 10/22/2023 Procedure: ? ERCP Providers: ? Yariel Castro MD Referring Provider: ?Hansa Ye Pre-op Diagnoses: ?Suspected ascending cholangitis, For therapy of ? ascending cholangitis, Elevated liver enzymes, ? Elevated alkaline phosphatase, Stent change Recommendation: ? - Return patient to hospital [facility] for ongoing care. ? - Levaquin (levofloxacin) 500 mg PO daily for 5 days. ? - Repeat ERCP in 12 weeks to exchange stent. ? - Watch for pancreatitis, bleeding, perforation, and cholangitis. Findings: ? A button spindler film of the abdomen was obtained. Surgical clips were seen in ? the area of the mid upper abdomen. One stent ending in the left main ? hepatic duct was seen. One stent ending in the right intrahepatic ? branches was seen. The esophagus was successfully intubated under direct ? vision without detailed examination of the pharynx, larynx, and ? associated structures, and upper GI tract. The upper GI tract was ? grossly normal. Two temporary plastic stents originating in the biliary ? tree were emerging from the major papilla. The stents were partially ? occluded. A biliary sphincterotomy had been performed. The ? sphincterotomy appeared open. Two stents were removed from the left ? hepatic duct and the right hepatic duct using a snare. A 0.035 inch ? angled Glidewire was passed into the biliary tree. The 8.5 mm balloon ? was passed over the guidewire and the bile duct was then deeply ? cannulated. Contrast was injected. I personally interpreted the bile ? duct images. Ductal flow of contrast was adequate. Image quality was ? adequate. Contrast extended to the hepatic ducts. The perihilar ? stricture looked similar to prior cholangiograms, with attenuation of ? the right hepatic system and prestenotic dilatation of the left ? system.To discover objects, the biliary tree was swept with an 8.5 mm ? balloon starting at the left intrahepatic duct(s) and right intrahepatic ? duct(s). Debris was swept from the duct. Sludge was swept from the duct. ? Pus was swept from the duct. One 10 Fr by 18 cm transpapillary temporary ? plastic stent with no external flaps and no internal flaps was placed ? into the left hepatic duct. Bile flowed through the stent. The stent was ? in good position. One 10 Fr by 17 cm transpapillary temporary plastic ? stent with no external flaps and no internal flaps was placed into the ? right hepatic duct. Bile flowed through the stent. The stent was in good ? position. Procedural Details: ? The patient was seen, evaluated, history reviewed, airway and heart-lung ? exams were performed by licensed provider and were satisfactory for ? planned level of sedation care. ? The risks, benefits and alternatives for the procedure and sedation were ? discussed and informed consent was obtained. A procedural pause was ? conducted in the presence of assisting personnel to verify the correct ? patient identity and procedure to be performed. Throughout the ? procedure, the patient's blood pressure, pulse, and oxygen saturations ? were monitored continuously. The Duodenoscope was introduced under ? direct vision through the mouth, and used to inject contrast into the ? bile duct. The ERCP was accomplished without difficulty. The patient ? tolerated the procedure well. Estimated Blood Loss: ?Estimated blood loss: none. Complications: ? No immediate complications. Sedation: ? General electrical intern Participation: I personally performed the entire procedure. Yariel Castro MD 10/22/2023 2:12:48 PM This report has been signed electronically. Number of Addenda: 0 Hansa Ye M.D., M.S. GI PROCEDU RE ORDERABLES LATIF PROVATION NA * ERCP-Gastroenterology Image Exam (10/22/2023 12:50 PM CDT) 10/22/2023 12:5 0 PM CDT Narrative IIM[facility] - 10/22/2023 2:25 PM CDT This order has been created and auto-finalized to support the import of images acquired without order. The clinical documentation to support these images can be found on the encounter that produced images. Provider Not In System IMG NON RAD IMAGI NG PROCEDURES [facility]IM[facility] NA * (ABNORMAL) Prothrombin Time (PT) (10/22/2023 12:30 PM CDT) Only the most recent of5 resultswithin the time period is included. Prothrombin Time, P 15.5(H) 9.4 - 12.5 sec 10/22/2023 1:51 PM CDT DTL INR 1.4 0.9 - 1.1 10/22/2023 1:51 PM CDT DTL Comment: ----ADDITIONAL INFORMATION---- Standard intensity warfarin therapeutic range: 2.0 to 3.0 ?? High intensity warfarin therapeutic range: 2.5 to 3.5 Blood (Blood, Venous) 10/22/2023 12:30 PM CDT 10/22/2023 1:22 PM CDT Milla Snyder M.D. LAB BLOOD ADD-ON [facility] [address] DTL [facility] [address] [place] [address] * US Gallbladder and or Biliary Ducts (10/22/2023 6:29 AM CDT) Anatomical Region Laterality Modality Abdomen, Ultrasound RST LOS, Ultrasound ARZ LOS, Ultrasound FLA LOS N/A Ultrasound Impressions 10/22/2023 7:22 AM CDT 1. Redemonstration of biliary stents and pneumobilia, as seen on recent CT abdomen and pelvis. Common bile duct not well visualized secondary to shadowing. 2. Status post cholecystectomy. Narrative 10/22/2023 7:22 AM CDT EXAM: US GALLBLADDER AND OR BILIARY DUCTS COMPARISON: Ultrasound liver biopsy 10/24/2022, CT abdomen pelvis 10/21/2023. FINDINGS: Gallbladder: Surgically absent. 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 Intrahepatic ducts: Biliary stents within the right and left intrahepatic bile ducts with pneumobilia, which limits visualization. Common hepatic duct: measuring 6 mm Common bile duct: Not well visualized sonographically, likely due to overlying shadowing from pneumobilia. Aorta: Normal caliber. Procedure Note Arturo Fuentes M.D. - 10/22/2023 EXAM: US GALLBLADDER AND OR BILIARY DUCTS COMPARISON: Ultrasound liver biopsy 10/24/2022, CT abdomen pelvis10/21/2023. FINDINGS: Gallbladder: Surgically absent. Known perihilar cholangiocarcinoma notwell visualized sonographically, better seen on recent CT abdomen/pelvis10/21/2023. Intrahepatic ducts: Biliary stents within the right and left intrahepaticbile ducts with pneumobilia, which limits visualization. Common hepatic duct: measuring 6 mm Common bile duct: Not well visualized sonographically, likely due tooverlying shadowing from pneumobilia. Aorta: Normal caliber. IMPRESSION: 1. Redemonstration of biliary stents and pneumobilia, as seen on recent CTabdomen and pelvis. Common bile duct not well visualized secondary toshadowing. 2. Status post cholecystectomy. Hansa Ye M.D., M.S. IMG US PRO CEDURES * (ABNORMAL) Hepatic Function Panel (10/22/2023 5:59 AM CDT) Only the most recent of2 resultswithin the time period is included. Bilirubin, Total, S 0.6 0.0 - 1.2 mg/dL 10/22/2023 6:43 AM CDT DTL Bilirubin, Direct, S 0.3 0.0 - 0.3 mg/dL 10/22/2023 6:43 AM CDT DTL Aspartate Aminotransferase (AST), S 165(H) 8 - 48 U/L 10/22/2023 6:43 AM CDT DTL Alanine Aminotransferase (ALT), S 121(H) 7 - 55 U/L 10/22/2023 6:43 AM CDT DTL Alkaline Phosphatase, S 334(H) 40 - 129 U/L 10/22/2023 6:43 AM CDT DTL Albumin, S 3.3(L) 3.5 - 5.0 g/dL 10/22/2023 6:43 AM CDT DTL Protein, Total, S 5.5(L) 6.3 - 7.9 g/dL 10/22/2023 6:43 AM CDT DTL Blood 10/22/2023 5:59 AM CDT 10/22/2023 6:26 AM CDT Hansa Ye M.D., M.S. LAB BLOOD ADD-ON Performing Organization Address [facility] [place] [address] * (ABNORMAL) Bacteria / Mariam Culture, Blood # 2 (10/22/2023 4:20 AM CDT) Only the most recent of2 resultswithin the time period is included. Pathologist [facility] Bacteria/Cand mary Culture, Blood KLEBSIELLA OXYTOCA/RAOULT JHONNY ORNITHINOLYTIC A/PLANTICOLA Growth after 12 Hours (A) 10/24/2023 1:24 PM CDT DTL Comment: 2 of 2 Bottles, Susceptibilities performed on another specimen [id number] Blood (Blood, Peripheral Draw) 10/22/2023 4:20 AM CDT 10/22/2023 5:25 AM CDT Comment:Specimen Source Site : Blood Narrative [facility] - 10/24/2023 1:24 PM CDT Received Bactec aerobic and Bactec anaerobic bottles Hansa Ye M.D., M.S. LAB MICROB IOLOGY - GENERAL ORDERABLES Performing Organization Address [facility]/ZIP Co de Phone Number [id number] [place] [address] [place] [address] * Lactate for Sepsis with Reflex, POCT (10/22/2023 4:14 AM CDT) Lactate, POCT 1.03 0.50 - 2.20 mmol/L 10/22/2023 4:33 AM CDT PCLX Blood (Blood, Venous) 10/22/2023 4:14 AM CDT 10/22/2023 4:14 AM CDT Hansa Ye M.D., M.S. LAB POCT O RDERABLES - DEVICE POC [facility] [address] [place] [address], [facility] PCLX [facility] POC [address] [place] [address] * DX Chest AP or PA and Lateral 2 Views (10/22/2023 3:56 AM CDT) Anatomical Region Laterality Modality Chest, Thoracic RST LOS, Tho racic ARZ LOS, Thoracic FLA LOS N/A Digital Radiography Impressions 10/22/2023 4:20 AM CDT Since 11/22/2022, new small left pleural effusion with basilar atelectasis. New subtle interstitial prominence in the right greater than left lower lung. Finding may represent edema or atypical infection/inflammation such as from aspiration. Remainder not significantly changed. No pneumothorax. Stable cardiac silhouette. Retrocardiac atelectasis. Right IJ CVC with tip at the SVC/RA junction. Surgical clips right upper quadrant. Biliary stent in the upper abdomen. Narrative 10/22/2023 4:20 AM CDT EXAM: ??DX CHEST AP OR PA AND LATERAL 2 VIEWS Procedure Note Julio Cesar Conley M.D., M.S. - 10/22/2023 EXAM: DX CHEST AP OR PA AND LATERAL 2 VIEWS IMPRESSION: Since 11/22/2022, new small left pleural effusion with basilar atelectasis.New subtle interstitial prominence in the right greater than left lowerlung. Finding may represent edema or atypical infection/inflammation suchas from aspiration. Remainder not significantly changed. No pneumothorax. Stable cardiacsilhouette. Retrocardiac atelectasis. Right IJ CVC with tip at the SVC/RAjunction. Surgical clips right upper quadrant. Biliary stent in the upperabdomen. Hansa Ye M.D., M.S. IMG DIAGNO STIC IMAGING PROCEDURES * Influenza A, B, RSV, PCR, Rapid (10/22/2023 3:44 AM CDT) Influenza A, PCR, Rapid, V Negative Negative 10/22/2023 4:19 AM CDT [facility] Influenza B, PCR, Rapid, V Negative Negative 10/22/2023 4:19 AM CDT [facility] Resp Synctial Virus, PCR, Rapid Negative Negative 10/22/2023 4:19 AM CDT [facility] Specimen Source Swab, Nasopharynx 10/22/2023 4:18 AM CDT [facility] Swab (Nasopharynx) 10/22/2023 3:44 AM CDT 10/22/2023 3:49 AM CDT Hansa Ye M.D., M.S. LAB MICROB IOLOGY - GENERAL ORDERABLES [facility] [address] [place] [address] * SARS Coronavirus 2, PCR Rapid Symptomatic (10/22/2023 3:44 AM CDT) SARS CoV-2, PCR, Rapid, V Undetected Undetected 10/22/2023 4:18 AM CDT [facility] Comment: ----ADDITIONAL INFORMATION---- This RT-PCR test was performed using the [employer] SARS-CoV-2 and Influenza A/B Reagent assay from [employer], which has received Emergency Use Authorization(EUA) by the U.S. Food and Drug Administration. Fact sheets for this Emergency Use Authorization (EUA) assay can be found at the following links: For Healthcare Providers: https://www.fda.gov/media/140855/download For Patients: https://www.fda.gov/media/485286/download SARS Coronavirus 2, Rapid, Source Swab, Nasopharynx 10/22/2023 3:49 AM CDT [facility] Swab (Nasopharynx) 10/22/2023 3:44 AM CDT 10/22/2023 3:49 AM CDT Hansa Ye M.D., M.S. LAB MICROB IOLOGY - GENERAL ORDERABLES Performing Organization Address City/[facility]/ZIP Co de Phone Number [facility] [address] [place] [address], [facility] STMA [facility] [address] [place] [address] * (ABNORMAL) Dipstick, POCT, Urine (10/22/2023 3:36 AM CDT) Glucose, POCT, U Negative Negative mg/dL 10/22/2023 3:38 AM CDT [facility]ED Ketone, POCT, U Negative Negative mg/dL 10/22/2023 3:38 AM CDT PC[facility] Specific [place], POCT, U 1.010 1.005 - 1.030 10/22/2023 3:38 AM CDT [facility] Blood, POCT, U Trace(A) Negative 10/22/2023 3:38 AM CDT [facility] pH, POCT, Urine 5.5 5.0 - 8.0 10/22/2023 3:38 AM CDT [facility] Protein, POCT, U 30(A) Negative mg/dL 10/22/2023 3:38 AM CDT PCED Nitrites, POCT, U Negative Negative 10/22/2023 3:38 AM CDT PCED Leukocytes, POCT, U Negative Negative 10/22/2023 3:38 AM CDT PCED Urine 10/22/2023 3:36 AM CDT 10/22/2023 3:38 AM CDT Unknown Provider LAB POCT ORDERABLES - DEVICE Performing Organization Address [facility]/ZIP Co de Phone Number POC RST [facility] [address] [place] [address], [facility] PCED [facility] POC [address] [place] [address] * Bacterial Culture, Aerobic + Susceptibility, Urine (10/22/2023 3:33 AM CDT) Urine Culture Urogenital microbiota, susceptibilities not performed per laboratory criteria. 10/23/2023 8:40 AM CDT DTL Urine (Urine, Midstream) 10/22/2023 3:33 AM CDT 10/22/2023 7:05 AM CDT Comment:Specimen Source Site : Urine Hansa Ye M.D., M.S. LAB MICROB IOLOGY - GENERAL ORDERABLES [facility] [address] [place] [address], [facility] [address] [place] [address] * ECG 12 Lead (10/22/2023 3:22 AM CDT) Only the most recent of2 resultswithin the time period is included. Ventricular Rate ECG/Min 117 BPM MUSE [place] Interval 168 ms MUSE QRSD Interval 84 ms MUSE QT Interval 290 ms MUSE QTC Interval 404 ms MUSE P [place] 68 degrees MUSE R [place] 48 degrees MUSE T Wave [place] 48 degrees MUSE 10/22/2023 3:22 AM CDT 10/22/2023 3:26 AM CDT Impressions MUSE - 10/22/2023 3:26 AM CDT Sinus tachycardia Premature ventricular complexes Nonspecific ST abnormality When compared with ECG of 03-Sep-2023 02:47, Vent. rate has increased by ??48 bpm Premature ventricular complexes are now present Reviewed by VAISHALI Campos Narrative Procedure Note Aron Banks M.D. - 10/22/2023 IMPRESSION: Sinus tachycardia Premature ventricular complexes Nonspecific ST abnormality When compared with ECG of 03-Sep-2023 02:47, Vent. rate has increased by 48 bpm Premature ventricular complexes are now present Reviewed by VAISHALI Campos Donna Prince M.D., M.P.H. ECG ORDERAB LES MUSE NA * Urinalysis with Microscopic if Indicated (10/21/2023 9:50 PM CDT) Source Urine, Urine, Midstream 10/21/2023 9:57 PM CDT CNFL Clarity Clear Clear 10/21/2023 10:00 PM CDT CNFL Color Yellow 10/21/2023 10:00 PM CDT CNFL Comment: ----REFERENCE VALUE---- Colorless Yellow [place] Blood Negative Negative 10/21/2023 10:00 PM CDT CNFL Nitrite Negative Negative 10/21/2023 10:00 PM CDT CNFL Leukocyte Esterase Negative Negative 10/21/2023 10:00 PM CDT CNFL Protein Negative mg/dL 10/21/2023 10:00 PM CDT CNFL Comment: ----REFERENCE VALUE---- Negative Trace Glucose Negative Negative mg/dL 10/21/2023 10:00 PM CDT CNFL Ketones, QI(U) Negative Negative mg/dL 10/21/2023 10:00 PM CDT CNFL Bilirubin Negative Negative 10/21/2023 10:00 PM CDT CNFL pH 5.5 5.0 - 8.0 10/21/2023 10:00 PM CDT CNFL Specific [place] <=1.005 1.001 - 1.035 10/21/2023 10:00 PM CDT CNFL Urobilinogen 0.2 0.2 - 1.0 mg/dL 10/21/2023 10:00 PM CDT CNFL Urine (Urine, Midstream) 10/21/2023 9:50 PM CDT 10/21/2023 9:57 PM CDT Tresa Patino APRN, C.N.P., D.N.P., M.S.N . LAB URINE ORDERABLES [facility] [address] [place] [id number], [facility] CNFL [facility] in [address] [address] * CT Abdomen Pelvis with IV Contrast (10/21/2023 8:58 PM CDT) Only the most recent of2 resultswithin the time period is included. Anatomical Region Laterality Modality Abdomen, Pelvis, Abdominal R ST LOS, Abdominal ARZ LOS, Abdominal FLA LOS N/A Computed Tomography 10/21/2023 8:57 PM CDT Impressions 10/21/2023 9:22 PM CDT No bowel obstruction. No acute findings in the abdomen or pelvis. Stable hypodense lesion in the hepatic hilum, compatible with recent reported cholangiocarcinoma. Stable mild intrahepatic biliary ductal dilatation. Biliary stents in satisfactory position. Small amount of ascites in the abdomen or pelvis has increased slightly. Stable subtle omental and mesenteric stranding in the right lower quadrant. Trace bilateral pleural effusions have increased slightly. Narrative 10/21/2023 9:22 PM CDT EXAM: CT ABDOMEN PELVIS WITH IV CONTRAST COMPARISON: CT abdomen and pelvis 10/01/2023 FINDINGS: Trace bilateral pleural effusions, greater than on prior CT, with increased mild dependent atelectasis in the inferior lower lobes. Biliary stents extend from the right and left hepatic lobes to the proximal and mid duodenum. Small amount of pneumobilia, slightly increased since prior exam. Borderline to mild intrahepatic biliary ductal dilatation. Stable perihilar hypoenhancing region in the central liver, compatible with history of cholangiocarcinoma. Stable hypodense lesions in the right hepatic dome and posterior right hepatic lobe, compatible with cysts. Spleen is unremarkable. Pancreas, adrenal glands, kidneys, ureters, bladder are unremarkable. Mild prostate enlargement. No bowel dilatation or wall thickening. Appendectomy. Small amount of ascites in the abdomen and pelvis, slightly increased since the prior CT. Mild mesenteric and omental fat stranding in the right abdomen, compatible with history of peritoneal carcinomatosis, similar to prior CT. No new peritoneal or mesenteric implants. Normal caliber abdominal aorta. Moderately severe degenerative changes lower lumbar spine. 1 cm umbilical hernia containing fat. Procedure Note Raul Huntley M.D. - 10/21/2023 EXAM: CT ABDOMEN PELVIS WITH IV CONTRAST COMPARISON: CT abdomen and pelvis 10/01/2023 FINDINGS: Trace bilateral pleural effusions, greater than on prior CT,with increased mild dependent atelectasis in the inferior lower lobes.Biliary stents extend from the right and left hepatic lobes to theproximal and mid duodenum. Small amount of pneumobilia, slightly increased since prior exam. Borderline to mildintrahepatic biliary ductal dilatation. Stable perihilar hypoenhancingregion in the central liver, compatible with history ofcholangiocarcinoma. Stable hypodense lesions in the right hepatic dome and posterior right hepatic lobe, compatible with cysts.Spleen is unremarkable. Pancreas, adrenal glands, kidneys, ureters,bladder are unremarkable. Mild prostate enlargement. No bowel dilatation or wall thickening. Appendectomy. Small amount ofascites in the abdomen and pelvis, slightly increased since the prior CT.Mild mesenteric and omental fat stranding in the right abdomen, compatiblewith history of peritoneal carcinomatosis, similar to prior CT. No new peritoneal or mesentericimplants. Normal caliber abdominal aorta. Moderately severe degenerativechanges lower lumbar spine. 1 cm umbilical hernia containing fat. IMPRESSION: No bowel obstruction. No acute findings in the abdomen or pelvis. Stable hypodense lesion in the hepatic hilum, compatible with recentreported cholangiocarcinoma. Stable mild intrahepatic biliary ductaldilatation. Biliary stents in satisfactory position. Small amount of ascites in the abdomen or pelvis has increased slightly.Stable subtle omental and mesenteric stranding in the right lowerquadrant. Trace bilateral pleural effusions have increased slightly. Reva Mancia APRN.N.P., D.N.P., M.S.N . IMG CT PROCEDURES * Lactate (10/21/2023 7:59 PM CDT) Lactate, P 0.7 0.5 - 2.2 mmol/L 10/21/2023 8:18 PM CDT CNFL Blood (Blood, Venous) 10/21/2023 7:59 PM CDT 10/21/2023 8:01 PM CDT Reva Mancia APRN.N.P., D.N.P., M.S.N . LAB BLOOD NON ADD-ON [facility] [address] [place] [id number], [facility] CNFL [facility] in [place] [id number] [place] [id number] * APTT (Activated Partial Thromboplastin Time) (10/08/2023 7:59 AM CDT) Only the most recent of4 resultswithin the time period is included. Activated Partial Thrombopl Time, P 33 25 - 37 sec 10/08/2023 8:44 AM CDT DTL Blood (Blood, Venous) 10/08/2023 7:59 AM CDT 10/08/2023 8:16 AM CDT Na Hernandez M.D., Ph.D. LAB BLOOD A DD-ON [facility] [address] [place] [address], [facility] [address] [place] [address] * CT Chest with IV Contrast (10/01/2023 8:46 AM CDT) Anatomical Region Laterality Modality Chest, Thoracic RST LOS, Tho racic ARZ LOS, Thoracic ARZ LOS, Thoracic FLA LOS N/A Computed Tomography, Compute d Tomography 10/01/2023 8:41 AM CDT Impressions 10/01/2023 10:41 AM CDT 1. New tiny left pleural effusion. 2. Remainder of the chest CT findings are unchanged including tiny pulmonary nodules and mildly prominent thoracic lymph nodes. Narrative 10/01/2023 10:41 AM CDT EXAM: CT CHEST WITH IV CONTRAST COMPARISON: Chest CT 09/03/2023 and 07/31/2023. FINDINGS: This examination was performed in conjunction with a CT of the abdomen, which will be reported separately. New tiny left pleural effusion. Stable few tiny pulmonary nodules, for example right middle lobe (3/355), right lower lobe (409), and lingula (370). Stable few small and mildly prominent thoracic lymph nodes, for example left internal mammary chain (3/223), right cardiophrenic fat (429) and lower paraesophageal region (490). No definite thoracic adenopathy. Right IJ Port-A-Cath terminates near the superior cavoatrial junction. Hypertrophic and degenerative changes spine. Mild gynecomastia. Procedure Note Arabella Bermudez M.D. - 10/01/2023 EXAM: CT CHEST WITH IV CONTRAST COMPARISON: Chest CT 09/03/2023 and 07/31/2023. FINDINGS: This examination was performed in conjunction with a CT of the abdomen,which will be reported separately. New tiny left pleural effusion. Stable few tiny pulmonary nodules, for example right middle lobe (3/355),right lower lobe (409), and lingula (370). Stable few small and mildly prominent thoracic lymph nodes, for exampleleft internal mammary chain (3/223), right cardiophrenic fat (429) andlower paraesophageal region (490). No definite thoracic adenopathy. Right IJ Port-A-Cath terminates near the superior cavoatrial junction. Hypertrophic and degenerative changes spine. Mild gynecomastia. IMPRESSION: 1. New tiny left pleural effusion. 2. Remainder of the chest CT findings are unchanged including tinypulmonary nodules and mildly prominent thoracic lymph nodes. Na Hernandez M.D., Ph.D. [facility] CT PROC EDURES * (ABNORMAL) Carbohydrate Antigen 19-9 (CA 19-9) (09/24/2023 7:19 AM CDT) Carbohydrate Ag 19-9, S 132(H) <35 U/mL 10/01/2023 6:00 PM CDT [facility] Comment: ----ADDITIONAL INFORMATION---- The testing method is an immunoenzymatic assay manufactured by [employer] and performed on the [employer] 800. ? Values obtained with different assay methods or kits may be different and cannot be used interchangeably. ? Test results cannot be interpreted as absolute evidence for the presence or absence of malignant disease. Blood (Blood, Venous) 09/24/2023 7:19 AM CDT 10/01/2023 4:59 PM CDT Na Hernandez M.D., Ph.D. LAB BLOOD A DD-ON [facility] [address] [place] [address] [facility] [address] [place] [address] * (TTE) 2D ECHO DOPPLER COLOR (09/10/2023 12:35 PM CDT) Ejection Fraction 56 MC CV EIMS LV End-Diastolic Diameter 58 MC CV EIMS LV End-Systolic Diameter 38 MC CV EIMS LV End-Diastolic Volume 180 MC CV EIMS LV End-Systolic Volume 79 MC CV EIMS MV E Velocity 0.8 MC CV EIMS MV A Velocity 0.6 MC CV EIMS MV E/A 1.33 MC CV EIMS MV e' Velocity Medial 0.09 MC CV EIMS MV e' Velocity Lateral 0.1 MC CV EIMS MV E/e' Medial 8.9 MC CV EIMS MV E/e' Lateral 8 MC CV EIMS Left ventricular stroke volume index 52 MC CV EIMS Cardiac Output 6.23 MC CV EIMS Cardiac Index 2.94 MC CV EIMS LV Global Longitudinal Strain -19 MC CV EIMS TR Vmax 3.08 MC CV EIMS RA Pressure 5 MC CV EIMS RV Systolic Pressure 43 MC CV EIMS Anatomical Region Laterality Modality Other 09/10/2023 11:3 4 AM CDT Impressions 09/10/2023 2:14 PM CDT Echocardiogram performed per chemotherapy protocol to assess left ventricular function. Last full echocardiogram performed 03/11/2023 (most recent TTE 05/31/2023). LEFT VENTRICLE:Mildly enlarged left ventricular chamber size. Calculated 2-D biplane volumetric left ventricular ejection fraction of 56% without the use of ultrasound enhancing agent. Strain imaging examination performed to assess left ventricular function. Global averaged left ventricular longitudinal peak systolic strain is normal at -19% (normal = more negative than -18%). Left ventricular cardiac index 2.94 l/min/m2. No regional wall motion abnormalities. Normal left ventricular filling pressure. RIGHT VENTRICLE:Normal right ventricular chamber size. Normal right ventricular systolic function. Estimated right ventricular systolic pressure 43 mmHg (right atrial pressure of 5 mmHg). ATRIA:Normal left atrial size by visual estimate. Normal right atrial size by visual estimate. CARDIAC VALVES:Thickened aortic valve. No aortic valve regurgitation. Thickened mitral valve. Bileaflet mitral valve ??prolapse. Mild mitral valve regurgitation (two eccentric jets). Normal tricuspid valve. Mild tricuspid valve regurgitation. OTHER ECHO FINDINGS:Normal inferior vena cava size with normal inspiratory collapse (>50%). No intracardiac mass or thrombus, but the left atrial appendage cannot be visualized adequately with transthoracic echo to exclude thrombus in this location. No ?? pericardial effusion. For the complete report, see the Order-Level Documents. Narrative 09/10/2023 2:14 PM CDT For the complete report, see the Order-Level Documents. Hemodynamics Heart Rate: 57 BPM Blood Pressure: 147 / 73 mmHg ECG: Sinus rhythm Final Impressions 1. Mildly enlarged left ventricular chamber size, no regional wall motion abnormalities, calculated 2-D biplane volumetric ejection fraction of 56%, global averaged longitudinal peak systolic strain is normal at -19% (normal = more negative than -18%). 2. Normal right ventricular chamber size, normal systolic function, estimated right ventricular systolic pressure 43 mmHg (right atrial pressure of 5 mmHg). 3. Bileaflet mitral valve ??prolapse. 4. Mild mitral valve regurgitation (two eccentric jets). Possibly [id number]. 5. No ??pericardial effusion. 6. Compared to the report of 05/31/2023 the following changes have occurred: The estimated RV systolic pressure has increased from 26 to 43 mm Hg (both are quality signals). ??Left ventricular size and systolic function and mitral regurgitation are visually unchanged, despite subtle changes in coding. ??Side by side comparison of images performed. Procedure Note Alcon Paige M.D., M.P.H. - 09/10/2023 For the complete report, see the Order-Level Documents. Hemodynamics Heart Rate: 57 BPM Blood Pressure: 147 / 73 mmHg ECG: Sinus rhythm Final Impressions 1. Mildly enlarged left ventricular chamber size, no regional wall motionabnormalities, calculated 2-D biplane volumetric ejection fraction of 56%,global averaged longitudinal peak systolic strain is normal at -19%(normal = more negative than -18%). 2. Normal right ventricular chamber size, normal systolic function,estimated right ventricular systolic pressure 43 mmHg (right atrialpressure of 5 mmHg). 3. Bileaflet mitral valve prolapse. 4. Mild mitral valve regurgitation (two eccentric jets). [id number]. 5. No pericardial effusion. 6. Compared to the report of 05/31/2023 the following changes haveoccurred: The estimated RV systolic pressure has increased from 26 to 43mm Hg (both are quality signals). Left ventricular size and systolicfunction and mitral regurgitation are visually unchanged, despite subtlechanges in coding. Side by side comparison of images performed. Findings Echocardiogram performed per chemotherapy protocol to assess leftventricular function. Last full echocardiogram performed 03/11/2023 (mostrecent TTE 05/31/2023). LEFT VENTRICLE:Mildly enlarged left ventricular chamber size. Calculated2-D biplane volumetric left ventricular ejection fraction of 56% withoutthe use of ultrasound enhancing agent. Strain imaging examinationperformed to assess left ventricular function. Global averaged leftventricular longitudinal peak systolic strain is normal at -19% (normal =more negative than -18%). Left ventricular cardiac index 2.94 l/min/m2. Noregional wall motion abnormalities. Normal left ventricular fillingpressure. RIGHT VENTRICLE:Normal right ventricular chamber size. Normal rightventricular systolic function. Estimated right ventricular systolicpressure 43 mmHg (right atrial pressure of 5 mmHg). ATRIA:Normal left atrial size by visual estimate. Normal right atrial sizeby visual estimate. CARDIAC VALVES:Thickened aortic valve. No aortic valve regurgitation.Thickened mitral valve. Bileaflet mitral valve prolapse. Mild mitralvalve regurgitation (two eccentric jets). Normal tricuspid valve. Mildtricuspid valve regurgitation. OTHER ECHO FINDINGS:Normal inferior vena cava size with normal inspiratorycollapse (>50%). No intracardiac mass or thrombus, but the left atrialappendage cannot be visualized adequately with transthoracic echo toexclude thrombus in this location. No pericardial effusion. For the complete report, see the Order-Level Documents. Na Hernandez M.D., Ph.D. CV ECHO PRO CEDURES * Troponin T, 2 Hour with 6 Hour Reflex, 5th Gen (09/03/2023 5:28 AM CDT) Troponin T, 2 hr, 5th gen 9 <=15 ng/L 09/03/2023 5:50 AM CDT CNFL 2H Delta 0 ng/L 09/03/2023 5:50 AM CDT CNFL Comment:6 hour collection no t indicated. 2H Delta Interp Not Changing 09/03/2023 5:50 AM CDT CNFL Blood 09/03/2023 5:28 AM CDT 09/03/2023 5:30 AM CDT Erin Maldonado P.A.-C., P.A., M.S. LAB BLO OD TROPONIN [facility] [address] [place] [address], [facility] CNFL [facility] [place] [address] * CT Chest Angiogram and Pulmonary Arteries with IV Contrast (09/03/2023 4:21 AM CDT) Anatomical Region Laterality Modality Chest, Cardiovascular RST LO S, Thoracic ARZ LOS, Thoracic FLA LOS N/A Computed Tomography 09/03/2023 4:08 AM CDT Impressions 09/03/2023 5:08 AM CDT 1. ??Negative for acute pulmonary embolism. 2. ??Small (sub-6 mm ) subsolid pulmonary nodules within the lungs bilaterally and mild right hilar lymphadenopathy, nonspecific and not significantly changed. 3. ??Unchanged hypodense lesion within the hepatic hilum measuring 3.6 x 1.8 cm and compatible with history of perihilar cholangiocarcinoma. 4. ??Mildly increased splenomegaly measuring 14.3 cm AP (previously 13.9 cm). Narrative 09/03/2023 5:08 AM CDT EXAM: CT CHEST ANGIOGRAM AND PULMONARY ARTERIES WITH IV CONTRAST Including 3D image postprocessing with or without AI assistance. COMPARISON: 07/31/[address] FINDINGS: LUNGS & PLEURA: Large airways are patent. No focal consolidation. Numerous no pleural effusions. Small (sub-6 mm ) subsolid pulmonary nodules within the lungs bilaterally, not significantly changed. CARDIOVASCULAR: Normal heart size without pericardial effusion. Thoracic aorta is nonaneurysmal. Main pulmonary artery is normal in caliber. No acute pulmonary artery emboli. MEDIASTINUM, EMI, AXILLA: Imaged thyroid gland is unremarkable. No pathologically enlarged mediastinal lymph nodes. Mild right hilar lymphadenopathy measuring 1.8 cm, not significantly changed. CHEST WALL: Right chest port. BONES: No acute or aggressive appearing osseous abnormalities. LIMITED UPPER ABDOMEN: Pneumobilia and biliary stents similar to prior. Unchanged hypodense lesion within the hepatic hilum measuring 3.6 x 1.8 cm and compatible with history of perihilar cholangiocarcinoma. Unchanged small right hepatic hypodensity, likely cyst or hemangioma. Small amount of upper abdominal ascites. Splenomegaly measuring 14.3 cm AP (previously 13.9) Procedure Note Bal Saavedra M.D. - 09/03/2023 EXAM: CT CHEST ANGIOGRAM AND PULMONARY ARTERIES WITH IV CONTRAST Including 3D image postprocessing with or without AI assistance. COMPARISON: 07/31/[address] FINDINGS: LUNGS & PLEURA: Large airways are patent. No focal consolidation. Numerousno pleural effusions. Small (sub-6 mm ) subsolid pulmonary nodules withinthe lungs bilaterally, not significantly changed. CARDIOVASCULAR: Normal heart size without pericardial effusion. Thoracicaorta is nonaneurysmal. Main pulmonary artery is normal in caliber. Noacute pulmonary artery emboli. MEDIASTINUM, EMI, AXILLA: Imaged thyroid gland is unremarkable. Nopathologically enlarged mediastinal lymph nodes. Mild right hilarlymphadenopathy measuring 1.8 cm, not significantly changed. CHEST WALL: Right chest port. BONES: No acute or aggressive appearing osseous abnormalities. LIMITED UPPER ABDOMEN: Pneumobilia and biliary stents similar to prior.Unchanged hypodense lesion within the hepatic hilum measuring 3.6 x 1.8 cmand compatible with history of perihilar cholangiocarcinoma. Unchangedsmall right hepatic hypodensity, likely cyst or hemangioma. Small amount of upper abdominal ascites.Splenomegaly measuring 14.3 cm AP (previously 13.9) IMPRESSION: 1. Negative for acute pulmonary embolism. 2. Small (sub-6 mm ) subsolid pulmonary nodules within the lungsbilaterally and mild right hilar lymphadenopathy, nonspecific and notsignificantly changed. 3. Unchanged hypodense lesion within the hepatic hilum measuring 3.6 x1.8 cm and compatible with history of perihilar cholangiocarcinoma. 4. Mildly increased splenomegaly measuring 14.3 cm AP (previously 13.9cm). Erin Maldonado P.A.-C., Gurinder, MHoldenS. IMG CT PROCEDURES * CT Head Neck Angiogram with IV Contrast (09/03/2023 4:18 AM CDT) Anatomical Region Laterality Modality Head and Neck, Neuroradiolog y RST LOS, Neuroradiology ARZ LOS, Neuroradiology FLA LOS N/A Computed Tomography Impressions 09/03/2023 4:51 AM CDT 1. ??No acute intracranial abnormalities. 2. ??No intracranial large vessel occlusion or saccular aneurysm. 3. ??No hemodynamically significant stenosis within the neck. Narrative 09/03/2023 4:51 AM CDT EXAM: CT HEAD NECK ANGIOGRAM WITH IV CONTRAST Including 3D image postprocessing with or without AI assistance. COMPARISON: None FINDINGS: BRAIN: BRAIN PARENCHYMA: No acute intracranial hemorrhage, mass effect, or evolving large territorial ischemia. ??Few patchy areas of hypoattenuation within the supratentorial white matter, nonspecific and most commonly ascribed to very mild sequelae of chronic small vessel ischemic disease. EXTRA-AXIAL SPACES & VENTRICLES: No extra-axial collections. No evidence of hydrocephalus. ORBITS: Unremarkable. PARANASAL SINUSES: Unremarkable. MASTOID AIR CELLS: Unremarkable. CALVARIUM & SOFT TISSUES: Prior left parietal craniotomies. No significant scalp hematoma or acute calvarial fractures. CTA NECK: AORTIC ARCH: No aneurysmal dilation or dissection. SUBCLAVIAN ARTERIES: No hemodynamically significant stenosis. COMMON CAROTID ARTERIES: No hemodynamically significant stenosis. CERVICAL ICAs: * ??Right: No hemodynamically significant stenosis. * ??Left: No hemodynamically significant stenosis. VERTEBRAL ARTERIES: No hemodynamically significant stenosis. OTHER: None. CTA HEAD: INTRACRANIAL ICAs: Patent. MCAs: M1 segments and major M2 branch origins are patent. ACAs: Proximal segments are patent. DISTAL VERTEBRAL ARTERIES: Patent. PROXIMAL SCAs: Unremarkable. BASILAR: Patent. 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 PROXIMAL wax pourer: ??Patent. POSTERIOR COMM. ARTERIES: Patent on the right and not well-visualized the left. OTHER: None. NECK: SUPRAHYOID NECK: Unremarkable. INFRAHYOID NECK: Unremarkable. SALIVARY GLANDS: Unremarkable. THYROID: Unremarkable. LYMPH NODES: No pathologic appearing lymphadenopathy. VISUALIZED THORAX: Unremarkable. CERVICAL SPINE: Central posterior disc osteophyte complex at C4-C5 resulting in probable moderate spinal canal stenosis. Posterolateral left posterior disc osteophyte complex at C3-C4 contribute to severe left neuroforaminal stenosis. Measurement of a carotid stenosis, if present, is based on length parameters that compare the residual internal carotid luminal diameter with that of the normal distal ICA in accordance with [place] Symptomatic Carotid Endarterectomy Trial (NASCET). Procedure Note Bal Saavedra M.D. - 09/03/2023 EXAM: CT HEAD NECK ANGIOGRAM WITH IV CONTRAST Including 3D image postprocessing with or without AI assistance. COMPARISON: None FINDINGS: BRAIN: BRAIN PARENCHYMA: No acute intracranial hemorrhage, mass effect, orevolving large territorial ischemia. Few patchy areas of hypoattenuationwithin the supratentorial white matter, nonspecific and most commonlyascribed to very mild sequelae of chronic small vessel ischemic disease. EXTRA-AXIAL SPACES & VENTRICLES: No extra-axial collections. No evidenceof hydrocephalus. ORBITS: Unremarkable. PARANASAL SINUSES: Unremarkable. MASTOID AIR CELLS: Unremarkable. CALVARIUM & SOFT TISSUES: Prior left parietal craniotomies. No significantscalp hematoma or acute calvarial fractures. CTA NECK: AORTIC ARCH: No aneurysmal dilation or dissection. SUBCLAVIAN ARTERIES: No hemodynamically significant stenosis. COMMON CAROTID ARTERIES: No hemodynamically significant stenosis. CERVICAL ICAs: * Right: No hemodynamically significant stenosis. * Left: No hemodynamically significant stenosis. VERTEBRAL ARTERIES: No hemodynamically significant stenosis. OTHER: None. CTA HEAD: INTRACRANIAL ICAs: Patent. MCAs: M1 segments and major M2 branch origins are patent. ACAs: Proximal segments are patent. DISTAL VERTEBRAL ARTERIES: Patent. PROXIMAL SCAs: Unremarkable. BASILAR: Patent. 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 PROXIMAL wax pourer: Patent. POSTERIOR COMM. ARTERIES: Patent on the right and not well-visualized theleft. OTHER: None. NECK: SUPRAHYOID NECK: Unremarkable. INFRAHYOID NECK: Unremarkable. SALIVARY GLANDS: Unremarkable. THYROID: Unremarkable. LYMPH NODES: No pathologic appearing lymphadenopathy. VISUALIZED THORAX: Unremarkable. CERVICAL SPINE: Central posterior disc osteophyte complex at C4-M2jsrtomwhv in probable moderate spinal canal stenosis. Posterolateral leftposterior disc osteophyte complex at C3-C4 contribute to severe leftneuroforaminal stenosis. Measurement of a carotid stenosis, if present, is based on lengthparameters that compare the residual internal carotid luminal diameterwith that of the normal distal ICA in accordance with North AmericanSymptomatic Carotid Endarterectomy Trial (NASCET). IMPRESSION: 1. No acute intracranial abnormalities. 2. No intracranial large vessel occlusion or saccular aneurysm. 3. No hemodynamically significant stenosis within the neck. Erin Maldonado P.A.-C. P.A., M.S. IMG CT PROCEDURES * (ABNORMAL) Morphology Evaluation (09/03/2023 3:21 AM CDT) RBC Morphology See Specific Findings 09/03/2023 6:43 AM CDT CNFL PLT Morphology Normal 09/03/2023 6:43 AM CDT CNFL PLT Estimate Adequate Adequate 09/03/2023 6:43 AM CDT CNFL Anisocytosis Slight(A) 09/03/2023 6:43 AM CDT CNFL Macrocytosis Slight(A) Not Seen 09/03/2023 6:43 AM CDT CNFL Blood 09/03/2023 3:21 AM CDT 09/03/2023 3:24 AM CDT Erin Maldonado P.A.-C., P.A., M.S. LAB BLO OD ADD-ON [facility] [address] [place] [address], [facility] CNFL [facility] in [address] [address] * Troponin T, Baseline, 5th gen (09/03/2023 3:21 AM CDT) Troponin T, Baseline, 5th gen 9 <=15 ng/L 09/03/2023 3:46 AM CDT CNFL Blood (Blood, Venous) 09/03/2023 3:21 AM CDT 09/03/2023 3:24 AM CDT Erin Maldonado P.A.-C., P.A., M.S. LAB BLO OD TROPONIN Performing Organization Address [facility] [place] [address], [place] [address] * (ABNORMAL) Manual Differential, Blood (09/03/2023 3:21 AM CDT) Segmented Neutrophils 56 50 - 75 % 09/03/2023 6:42 AM CDT CNFL Lymphocytes % 29 18 - 42 % 09/03/2023 6:42 AM CDT CNFL Monocytes 7 2 - 11 % 09/03/2023 6:42 AM CDT CNFL Eosinophils 5(H) 1 - 3 % 09/03/2023 6:42 AM CDT CNFL Metamyelocytes 3(H) <1 % 09/03/2023 6:42 AM CDT CNFL Manual Absolute Neutrophil Count 2.30 1.56 - 6.45 x10(9)/L 09/03/2023 6:42 AM CDT CNFL Comment: ----ADDITIONAL INFORMATION---- The manual absolute neutrophil count is derived from a manual differential count and therefore is not exactly comparable to the automated absolute neutrophil count. Blood 09/03/2023 3:21 AM CDT 09/03/2023 3:24 AM CDT Erin Maldonado P.A.-C., P.A., M.S. LAB BLO OD ADD-ON Performing Organization Address [facility]/[place]IP [place] [address], [facility] [address] [place] [address] * (ABNORMAL) Lipid Panel (01/25/2023 8:49 AM CDT) Triglycerides 93 mg/dL 01/25/2023 9:09 AM CDT CNFL Comment: ----REFERENCE VALUE---- Normal: <150 mg/dL Borderline High: 150-199 mg/dL High: 200-499 mg/dL Very High: > or =500 mg/dL Cholesterol, Total 209(H) mg/dL 2022 9:09 AM CDT CNFL Comment: ----REFERENCE VALUE---- Desirable: < 200 mg/dL Borderline High: 200 - 239 mg/dL High: > or = 240 mg/dL Cholesterol, LDL, Calculated 127 mg/dL 01/25/2023 9:09 AM CDT CNFL Comment: ----REFERENCE VALUE---- Desirable: <100 mg/dL Above Desirable: 100-129 mg/dL Borderline High: 130-159 mg/dL High: 160-189 mg/dL Very High: >=190 mg/dL ----ADDITIONAL INFORMATION---- LDL cholesterol calculated using the Hardin/NIH equation. Cholesterol, HDL 65 >=40 mg/dL 01/26/20 9:09 AM CDT CNFL Cholesterol, Non-HDL, Calculated 144 mg/dL 01/25/2023 9:09 AM CDT CNFL Comment: ----REFERENCE VALUE---- Desirable: <130 mg/dL Above Desirable: 130-159 mg/dL Borderline High: 160-189 mg/dL High: 190-219 mg/dL Very High: > or =220 mg/dL Fasting (8 HR or more) yes 01/25/2023 8:50 AM CDT CNFL Blood (Blood, Venous) 01/25/2023 8:49 AM CDT 01/25/2023 8:50 AM CDT Rosalie Ott LAB BLOOD ADD- ON [facility] [address] [place] [id number] [place] [address] CNFL [facility] in [place] [address] [place] [address] from Last 3 Months or Most Recently Relevant to Health Maintenance Additional Health Concerns Infection Onset Date Last Indicated Protective Environment 11/07/2022 3 Advance Directives For more information, please contact: [phone] Documents on File Type Date Recorded Patient Tire Service Technician Expl anation Advance Directives 10/16/2022 3:06 PM Wilfredo Caldwell HCPOA/ADVOCATE/AGENT/R EPRESENTATIVE/SURROGAT E * Full Code (Latest Code Status on File) Date Activated Date Inactivated Comments 10/22/2023 11:33 AM 10/24/2023 7:57 PM Question Answer Comments Full Code: Discussed * Full Code Date Activated Date Inactivated Comments 01/09/2023 10:08 AM 01/09/2023 9:55 PM Question Answer Comments Full Code: Discussed * Full Code Date Activated Date Inactivated Comments 11/22/2022 6:21 PM 11/25/2022 4:00 PM Question Answer Comments Full Code: Not Discussed Due to: Patient not available Healthcare Agents on File Name Relationship Healthcare Agent Relationship Communication Wilfredo Derick Spouse Health Care Agent [email or web address] Sepulveda Child First Alternate Health Care Agent [email or web address] Charito Caldwell Child First Alternate Health Care Agent Care Teams Transit Specialist Relationship Specialty Start Date End Date Mark Colorado M.D. [address] [place] [phone] PCP - General Family Medicine 11/09/22
--- OUTSIDE RECORDS SUMMARY | 2023-11-05 22:04 | XMS_ITS ---
Author Organization [facility] Address [address] [place] [address] Care Team Providers Care Signal Worker Name Role Phone Unavailable Unavailable Unavailable Surgery Details Not on file Complications Check Surgery Details section. Procedure Estimated Blood Loss Check Surgery Details section. Procedure Findings Check Surgery Details section. Procedure Specimens Taken Check Surgery Details section.
--- OUTSIDE RECORDS SUMMARY | 2023-11-05 22:04 | XMS_ITS | Encounter Summary ---
Author Organization [facility] Address [address] [place] [address] Care Team Providers Care Systems Test Technician Name Role Phone Mark Colorado M.D. Primary Care Provider [phone] Reason for Visit * Episode Based Medications (Routine) - Authorized Specialty Diagnoses / Procedures Referred By Contac t Referred To Contact Diagnoses Cholangiocarcinoma (HCC) Trouble Dispatcher Current Drug Therapy, Chemotherapy Peritoneal Carcinomatosis (HCC) Neutropenia Chemotherapy Induced (HCC) Procedures VA ONDANSETRON HCL INJECTION VA PACLITAXEL INJECTION VA INJECTION, DARINEL ONC Yuko Pennington MPAS, P.A.-C. [address] [place] [address] Rst Onc Cruz [address] [place] [address] Referral ID Status Reason Start Date Expiration Date V isits Requested Visits Authorized [id number] Authorized 03/11/2023 03/31/2024 31 99 Encounter Details Date Type Department Care Team (Late st Contact Info) Description 11/01/2023 9:20 AM CDT Lab Department of Infusion Therapy in [place], [place] [address] [place] [phone] Na Hernandez M.D., Ph.D. [address] [place] [phone] Pure Hypercholesterolemia (Primary Dx); Cholangiocarcinoma (HCC); Detention Current Drug Therapy, Chemotherapy; Peritoneal Carcinomatosis (HCC); Neutropenia Chemotherapy Induced (HCC) Social History Tobacco Use Types Packs/Day Years Used Date Smoking Tobacco: Never Passive Smoke Exposure: Never Smokeless Tobacco: Never Alcohol Use Standard Drinks/Week Comments Not Currently 0 (1 standard drink = 0.6 oz pur e alcohol) [facility] Utilities Answer Date Recorded In the past 12 months has [employer], gas, oil, or water [employer] threatened to shut off services in your [...] your living situation today? I have a [facility] place to live 10/22/2023 Sex and Gender Information Value Date Recorded Sex Assigned at Male 09/10/2022 12:02 PM CDT Gender Identity Male 09/10/2022 12:02 PM CDT Sexual Orientation Straight 09/10/2022 12 :02 PM CDT documented as of this encounter Plan of Treatment Upcoming Encounters Date Type Department Care Team (Latest Contact Info) Description 11/07/2023 3:15 PM CDT Clinical Communication Virtual Review in [place], [place] [address] [place] [address] 11/15/2023 6:40 AM CDT Lab Department of Laboratory Medicine and Pathology, [facility], in [place], [place] [address] [place] [phone] Loyda Lennon M.D. [address] [place] [address] 11/15/2023 8:20 AM CDT Office Visit Department of Oncology in [place], [place] [address] [place] [phone] Manjit Velasquez APRN C.N.P., D.N.P. [address] [place] [phone] 11/15/2023 9:30 AM CDT Comprehensive Visit Department of Palliative Care in [place], [place] [address] [place] [phone] Patty Gomez APRN, C.N.P., M.S.N. [address] [place] [phone] 11/15/2023 2:15 PM CDT Infusion Department of Oncology in [place], [place] [address] [place] [phone] Loyda Lennon M.D. [address] [place] [phone] 11/22/2023 7:30 AM CDT Lab Department of Oncology in [address] [phone] Loyda Lennon M.D. [address] [place] [phone] 11/22/2023 8:45 AM CDT Infusion Department of Oncology in [address] [phone] Loyda Lennon M.D. [address] [place] [phone] 11/28/2023 3:30 PM CDT Clinical Communication Virtual Review in [place], [place] 200 [place] [address] 11/29/2023 9:00 AM CDT Procedure visit Department of Urology in [place], [place] [address] [place] [address] Mark Colorado M.D. [address] [place] [address] 11/29/2023 11:20 AM CDT Lab Department of Laboratory Medicine and Pathology, [facility] in [place], [place] [address] [place] [address] Loyda Lennon M.D. [address] [place] [phone] 11/29/2023 11:30 AM CDT Lab Department of Oncology in [place], [place] [address] [place] [address] Loyda Lennon M.D. [address] [place] [phone] 11/29/2023 1:00 PM CDT Infusion Department of Oncology in [place], [place] [address] [place] [phone] Loyda Lennon M.D. [address] [place] [phone] 12/03/2023 1:45 PM CDT Comprehensive Visit Department of Urology in [place], [place] [address] [place] [phone] Mona Egan, PJulio César [address] [place] [phone] 12/05/2023 1:20 PM CDT Comprehensive Visit Department of Oncology in [place], [place] [address] [place] [phone] Letty Kate M.D. [address] [place] [phone] 12/10/2023 3:00 PM CDT Clinical Communication Virtual Review in [place], [place] 200 [place] [address] 12/10/2023 3:30 PM CDT Procedure visit Department of Urology in [place], [place] [address] [place] [phone] Mark Colorado M.D. [address] [place] [address] [place] [address] 12/12/2023 3:45 PM CDT Appointment Department of Radiology, [facility], in [place], [place] [address] [place] [phone] Na Hernandez M.D., Ph.D. [address] [place] [phone] 12/13/2023 6:00 AM CDT Lab Department of Laboratory Medicine and Pathology, [facility], in [place], [place] [address] [place] [phone] Loyda Lennon M.D. [address] [place] [phone] 12/13/2023 6:20 AM CDT Lab Department of Infusion Therapy in [place], [place] [address] [place] [phone] Loyda Lennon M.D. [address] [place] [phone] 12/13/2023 11:10 AM CDT Office Visit Department of Oncology in [place], [place] [address] [place] [phone] Na Hernandez M.D., Ph.D. [address] [place] [phone] 12/13/2023 1:00 PM CDT Infusion Department of Oncology in [place], [place] [address] [place] [phone] Loyda Lennon M.D. [address] [place] [phone] 12/20/2023 9:20 AM CDT Lab Department of Infusion Therapy in [place], [place] [address] [place] [phone] Loyda Lennon M.D. [address] [place] [phone] 12/20/2023 10:30 AM CDT Infusion Department of Oncology in [place], [place] [address] [place] [phone] Loyda Lennon M.D. [address] [place] [phone] 12/25/2023 10:30 AM CDT Appointment Division of Gastroenterology in [place], [place] [address] [place] [phone] Na Hernandez M.D., Ph.D. [address] [place] [phone] 12/27/2023 10:15 AM CDT Lab Department of Oncology in [place], [place] [address] [place] [phone] Loyda Lennon M.D. [address] [place] [phone] 12/27/2023 10:30 AM CDT Lab Department of Laboratory Medicine and Pathology, [facility], in [place], [place] [address] [place] [phone] Loyda Lennon M.D. [address] [place] [phone] 12/27/2023 11:45 AM CDT Infusion Department of Oncology in [place], [place] [address] [place] [phone] Loyda Lennon M.D. [address] [place] [phone] 01/03/2024 1:00 PM CDT Clinical Communication Virtual Review in [place], [place] 200 [place] [address] 01/10/2024 8:00 AM CDT Lab Department of Infusion Therapy in [address] [phone] Loyda Lennon M.D. [address] [place] [phone] 01/10/2024 8:20 AM CDT Lab Department of Laboratory Medicine and Pathology, [facility] in [address] [phone] Loyda Lennon M.D. [address] [place] [phone] 01/10/2024 10:30 AM CDT Office Visit Department of Oncology in [address] [phone] Na Hernandez M.D., Ph.D. [address] [place] [phone] 01/10/2024 11:45 AM CDT Infusion Department of Oncology in [address] [phone] Loyda Lennon M.D. [address] [place] [phone] 01/17/2024 8:45 AM CDT Lab Department of Oncology in [place], [place] [address] [place] [phone] Loyda Lennon M.D. [address] [place] [phone] 01/17/2024 10:00 AM CDT Infusion Department of Oncology in [place], [place] [address] [place] [phone] Loyda Lennon M.D. [address] [place] [phone] 01/24/2024 8:00 AM CDT Lab Department of Laboratory Medicine and Pathology, [facility] in [place], [place] [address] [place] [phone] Loyda Lennon M.D. [address] [place] [phone] 01/24/2024 8:15 AM CDT Lab Department of Oncology in [place], [place] [address] [place] [phone] Loyda Lennon M.D. [address] [place] [phone] 01/24/2024 9:15 AM CDT Infusion Department of Oncology in [place], [place] [address] [place] [phone] Loyda Lennon M.D. [address] [place] [phone] Scheduled Procedures Name Priority Associated Diagnoses Date/Ti me HEPATECTOMY RESECTION LIVER Cholangiocarcinoma (HCC) ULTRASOUND LIVER Cholangiocarcinoma (HCC) RECONSTRUCTION PORTAL VEIN Cholangiocarcinoma (HCC) documented as of this encounter Procedures Procedure Name Priority Date/Time Associated Diagnosis Comments TROPONIN I, HIGH SENSITIVITY, P Routine 11/01/2023 9:20 AM CDT Cholangiocarcinoma (HCC) Detention Current Drug Therapy, Chemotherapy Peritoneal Carcinomatosis (HCC) Neutropenia Chemotherapy Induced (HCC) PROSTATE-SPECIFIC AG (PSA) SCRN, S Routine 11/01/2023 9:20 AM CDT Cholangiocarcinoma (HCC) NT-PRO B-TYPE NATRIURETIC PEPTIDE (BNP), S Routine 11/01/2023 9:20 AM CDT Cholangiocarcinoma (HCC) Trouble Dispatcher Current Drug Therapy, Chemotherapy Peritoneal Carcinomatosis (HCC) Neutropenia Chemotherapy Induced (HCC) CBC WITH DIFFERENTIAL, B Routine 11/01/2023 9:20 AM CDT Cholangiocarcinoma (HCC) Detention Current Drug Therapy, Chemotherapy Peritoneal Carcinomatosis (HCC) Neutropenia Chemotherapy Induced (HCC) URIC ACID, S/P Routine 11/01/2023 9:20 AM CDT Cholangiocarcinoma (HCC) Trouble Dispatcher Current Drug Therapy, Chemotherapy Peritoneal Carcinomatosis (HCC) Neutropenia Chemotherapy Induced (HCC) PHOSPHORUS (INORGANIC), S Routine 11/01/2023 9:20 AM CDT Cholangiocarcinoma (HCC) Trouble Dispatcher Current Drug Therapy, Chemotherapy Peritoneal Carcinomatosis (HCC) Neutropenia Chemotherapy Induced (HCC) MAGNESIUM, S Routine 11/01/2023 9:20 AM CDT Cholangiocarcinoma (HCC) Detention Current Drug Therapy, Chemotherapy Peritoneal Carcinomatosis (HCC) Neutropenia Chemotherapy Induced (HCC) LIPASE, S/P Routine 11/01/2023 9:20 AM CDT Cholangiocarcinoma (HCC) Detention Current Drug Therapy, Chemotherapy Peritoneal Carcinomatosis (HCC) Neutropenia Chemotherapy Induced (HCC) LACTATE DEHYDROGENASE (LD), S Routine 11/01/2023 9:20 AM CDT Cholangiocarcinoma (HCC) Trouble Dispatcher Current Drug Therapy, Chemotherapy Peritoneal Carcinomatosis (HCC) Neutropenia Chemotherapy Induced (HCC) AMYLASE, TOT, S Routine 11/01/2023 9:20 AM CDT Cholangiocarcinoma (HCC) Detention Current Drug Therapy, Chemotherapy Peritoneal Carcinomatosis (HCC) Neutropenia Chemotherapy Induced (HCC) COMPREHENSIVE METABOLIC PANEL, S/P Routine 11/01/2023 9:20 AM CDT Cholangiocarcinoma (HCC) Trouble Dispatcher Current Drug Therapy, Chemotherapy Peritoneal Carcinomatosis (HCC) Neutropenia Chemotherapy Induced (HCC) documented in this encounter Results * PSA (Prostate-Specific Antigen) Screen (11/01/2023 9:20 AM CDT) Pathologist [facility] Prostate-Specific Ag 0.49 <=6.5 ng/mL 11/01/2023 10:30 AM CDT DTL Comment: ----ADDITIONAL INFORMATION---- The testing method is [...] Sara Marino APRNN.P., M.S. LAB BLOOD ADD-ON [facility] [address] [place] [address], [facility] [address] [place] [address] * (ABNORMAL) NT-Pro B-Type Natriuretic Peptide (BNP) (11/01/2023 9:20 AM CDT) [facility] NT-Pro BNP 550(H) <=540 pg/mL 11/01/2023 10:30 AM CDT DTL Comment: NT-proBNP values less than 300 pg/mL [...] BLOOD A DD-ON [facility] [address] [place], [place] [phone] [place] [address] [address] [place] [address] * Troponin I, High Sensitivity (11/01/2023 9:20 AM CDT) Pathologist [facility] TROPONIN I, HIGH SENSITIVITY, P 7 <=20 ng/L 11/01/2023 12:05 PM CDT DTL Blood (Blood, Venous) 11/01/2023 9:20 AM CDT 11/01/2023 9:59 AM CDT Na Hernandez M.D., Ph.D. LAB BLOOD N ON ADD-ON Performing Organization Address City/[facility]/ZIP Co de Phone Number [facility] [address] [place], [place] [phone] [place] [address] 200 [place] [address] * Lipase (11/01/2023 9:20 AM CDT) Pathologist [facility] Lipase, S 58 13 - 60 U/L 11/01/2023 10:30 AM CDT DTL Blood (Blood, Venous) 11/01/2023 9:20 AM CDT 11/01/2023 9:56 AM CDT Na Hernandez M.D., Ph.D. LAB BLOOD A DD-ON [facility] [address] [place], [place] [phone] [place] [address] [address] [place] [address] * Amylase, Total (11/01/2023 9:20 AM CDT) Amylase, Total, S 47 28 - 100 U/L 11/01/2023 10:30 AM CDT DTL Blood (Blood, Venous) 11/01/2023 9:20 AM CDT 11/01/2023 9:56 AM CDT Na Hernandez M.D., Ph.D. LAB BLOOD A DD-ON Performing Organization Address City/[facility] Co de Phone Number [facility] [address] [place], [place] [phone] [place] [address] [address] [place] [address] * Phosphorus Inorganic (11/01/2023 9:20 AM CDT) [facility] Phosphorus (Inorganic), S 3.2 2.5 - 4.5 mg/dL 11/01/2023 10:30 AM CDT DTL Blood (Blood, Venous) 11/01/2023 9:20 AM CDT 11/01/2023 9:56 AM CDT Na Hernandez M.D., Ph.D. LAB BLOOD A DD-ON Performing Organization Address [facility] Co de Phone Number [facility] [address] [place] [address], [facility] [address] [place] [address] * Magnesium (11/01/2023 9:20 AM CDT) Pathologist [facility] Magnesium, S 2.0 1.7 - 2.3 mg/dL 11/01/2023 10:30 AM CDT DTL Blood (Blood, Venous) 11/01/2023 9:20 AM CDT 11/01/2023 9:56 AM CDT Na Hernandez M.D., Ph.D. LAB BLOOD A DD-ON Performing Organization Address City/[facility] Co de Phone Number [facility] [address] [place] [address] * Uric Acid (11/01/2023 9:20 AM CDT) [facility] Uric Acid, S 6.2 3.7 - 8.0 mg/dL 11/01/2023 10:30 AM CDT DTL Blood (Blood, Venous) 11/01/2023 9:20 AM CDT 11/01/2023 9:56 AM CDT Na Hernandez M.D., Ph.D. LAB BLOOD A DD-ON [facility] [address] [place] [address] * LD (Lactate Dehydrogenase) (11/01/2023 9:20 AM CDT) [facility] LD 191 122 - 222 U/L 11/01/2023 10:20 AM CDT DTL Blood (Blood, Venous) 11/01/2023 9:20 AM CDT 11/01/2023 9:56 AM CDT Na Hernandez M.D., Ph.D. LAB BLOOD N ON ADD-ON [facility] [address] [place] [address] * (ABNORMAL) Comprehensive Metabolic Panel (11/01/2023 9:20 AM CDT) [facility] Potassium, S 4.7 3.6 - 5.2 mmol/L [...] A DD-ON [facility] [address] [place] [address], [facility] DTL [facility] [address] [place] [address] * (ABNORMAL) CBC with Differential, Blood (11/01/2023 9:20 AM CDT) Hemoglobin 9.8(L) 13.2 - 16.6 g/dL 11/01/2023 [...] AM CDT 11/01/2023 9:45 AM CDT Na Hernandez M.D., Ph.D. LAB BLOOD A DD-ON [facility] [address] [place] [address], [place] DTL [facility] [address] [place] [address] [facility] [address] [place] [address] documented in this encounter Visit Diagnoses Diagnosis Pure Hypercholesterolemia- Primary Cholangiocarcinoma (HCC) Detention Current Drug Therapy, Chemotherapy Peritoneal Carcinomatosis (HCC) Neutropenia Chemotherapy Induced (HCC) documented in this encounter Administered Medications Inactive Administered Medications - up to 3 most recent administrations Medication Order MAR Action Action Date Dose Rate Site heparin flush 500 Units 500 Units, intra-catheter, As needed, line care, Starting on Sat11/01/23 at 0911, When IVAD accessed and not infusing: When no infusion to maintain patency flush every 7 days following NaCL flush. 5 mL (500 units) of Heparin 100 units/mL to each port/lumen. When IVAD not accessed or infusing: When no infusion to maintain patency flush every 28 days following NaCL flush. 5 mL (500 units) of Heparin 100 units/mL to each port/lumen. Given 11/01/2023 9:24 AM CDT 500 Units sodium chloride 0.9 % injection 20-40 mL 20-40 mL, intra-catheter, As needed, line care, Starting on Sat11/01/23 at 0911, When IVAD accessed and infusing: Flush prior to blood sampling, post blood transfusion or post blood sampling. 20 mL to each port/lumen. Given 11/01/2023 9:23 AM CDT 40 mL documented in this encounter Additional Health Concerns Infection Onset Date Last Indicated Resolved Time Protective Environment 11/07/2022 11/07/2022 documented as of this encounter Care Teams Systems Test Technician Relationship Specialty Start Date End Date Mark [place] M.D. [place]: [id number] [address] [place], [place] [phone] PCP - General Family Medicine 11/09/22 documented as of this encounter
--- OUTSIDE RECORDS SUMMARY | 2023-11-05 22:04 | XMS_ITS | Encounter Summary ---
Author Organization [facility] Address [address] [place] [address] Care Team Providers Care Labor Relations Or Personnel Negotiator Name Role Phone Mark Colorado M.D. Primary Care Provider [phone] Reason for Visit * Reason Comments Follow-up * Appointment Request (Routine) - Closed Specialty Diagnoses / Procedures Referred By Chloe hinkle Referred To Contact Family Medicine Referral ID Status Reason Start Date Expiration Date Visits Re quested Visits Authorized [id number] Closed 10/23/2023 10/22/2024 1 1 Encounter Details Date Type Department Care Team (Late st Contact Info) Description 10/30/2023 1:00 PM CDT Office Visit Department of Family Medicine, [facility], in [place], [place] [address] [place] [phone] Mark Colorado M.D. [address] [place] [address] Diarrhea (Primary Dx); Cholangiocarcinoma (HCC); Hesitancy Urinary; Hypertension Essential Primary Discharge Disposition: Home or Self Care Social History Tobacco Use Types Packs/Day Years Used Date Smoking Tobacco: Never Passive Smoke Exposure: Never Smokeless Tobacco: Never Tobacco Cessation:Counseling Given: Not Answered Alcohol Use Standard Drinks/Week Comments Not Currently 0 (1 standard drink = 0.6 oz pur e alcohol) [facility] Utilities Answer Date Recorded In the past 12 months has e [employer], gas, oil, or water [employer] threatened to shut off services in your [...] money to buy more. Never true 10/22/19 24 Within the past 12 months, t he [...] your living situation today? I have a [facility] place to live 10/22/2023 Sex and Gender Information Value Date Recorded Sex Assigned at Male 09/10/2022 12:02 PM CDT Gender Identity Male 09/10/2022 12:02 PM CDT Sexual Orientation Straight 09/10/2022 12 :02 PM CDT documented as of this encounter Last Filed Vital Signs Vital Sign Reading Time Taken Comments Blood Pressure 136/73 10/30/2023 12:50 PM CDT Pulse 69 10/30/2023 12:50 PM CDT Temperature 37.1 ??C (98.8 ??F) 10/30/2023 12:44 PM C DT Respiratory Rate - - Oxygen Saturation - - Inhaled Oxygen Concentration - - Weight 88 kg (194 lb 0.1 oz) 10/30/2023 12:44 PM CDT Height - - Body Mass Index 26.33 10/29/2023 7:08 AM CDT documented in this encounter Progress Notes * Mark Colorado M.D. - 10/30/2023 1:00 PM CDT SERGE Kang is a 68 y.o. male who presents for evaluation of recent hospitalization and ongoing symptoms.Patient's blood pressure has been a little erratic mostly because he got off of his lisinopril at the time of his hospitalization. That has been restarted. Blood pressure looks better today. Unfortunately has had diarrhea really the last 48 hours even though he stopped his MiraLax. Today had very watery loose diarrhea this morning with some cramping of course he recently finished antibiotics and he is concerned about possible Clostridium difficile. Patient has not had any fevers or other chillsthat way. Does state that he still has a urinary hesitancy seems like it is easier for him to urinate when he is standing. He unfortunately did have 500 cc of urine in his bladder when he was in the emergency department but he was quite ill at the time so not sure if that is her true reflexion of urinary retention. Constitutional: Positive for fatigue. - Negative for fever. Gastrointestinal: Positive for diarrhea. - Negative for abdominal (belly) pain or cramping. Genitourinary: Positive for difficulty urinating. The following systems were negative: Respiratory, Cardiovascular History review: I reviewed and updated problem list, medication list, and allergies with the patient. OBJECTIVE VITAL SIGNS Vitals: 10/30/23 1250 BP: 136/73 Pulse: 69 Temp: PHYSICAL EXAMINATION Physical Exam ASSESSMENT / PLAN #1 Cholangiocarcinoma (HCC) Patient continues to follow closely with the oncology team. He is hopeful to have his next round ofchemo therapeutics this week #2 Diarrhea Patient does have diarrhea that is persistent 48 hours after his last MiraLax. I do worry that we have to rule out Clostridium difficile 1. Stool sample for C diff #3 Hesitancy Urinary Long discussion about his urinary hesitancy. Unsure of the etiology I think at this point we probably need to investigate this further he did have a catheter placed when he went into the hospital he reports that was not difficult to get it in so I do not think this is a prostate issue. However he has postvoid residual this probably needs to be assessed. 1. Will discuss with the Oncology team to see if we can get a postvoid residual scan when he is down for his chemotherapy to see if we can determine if he has retention #4 Hypertension Essential Primary Blood pressure is better here. He is back on his antihypertensive this will need to be watch closely 30 minutes was spent reviewing the medical record, interviewing and examining the patient, and formulating the care plan. Mark Colorado M.D. documented in this encounter Plan of Treatment Upcoming Encounters Date Type Department Care Team (Latest Contact Info) Description 11/07/2023 3:15 PM CDT Clinical Communication Virtual Review in [place], [place] [address] [place] [phone] 11/15/2023 6:40 AM CDT Lab Department of Laboratory Medicine and Pathology, [facility], in [place], [place] [address] [place] [phone] Loyda Lennon M.D. [address] [place] [phone] 11/15/2023 8:20 AM CDT Office Visit Department of Oncology in [address] [phone] Manjit Velasquez APRN, C.N.P., D.N.P. [address] [place] [phone] 11/15/2023 9:30 AM CDT Comprehensive Visit Department of Palliative Care in [address] [phone] Patty Gomez APRN, C.N.P., M.S.N. [address] [place] [phone] 11/15/2023 2:15 PM CDT Infusion Department of Oncology in [address] [phone] Loyda Lennon M.D. [address] [place] [phone] 11/22/2023 7:30 AM CDT Lab Department of Oncology in [address] [phone] Loyda eLnnon M.D. [address] [place] [phone] 11/22/2023 8:45 AM CDT Infusion Department of Oncology in [place], [place] [address] [place] [phone] Loyda Lennon M.D. [address] [place] [phone] 11/28/2023 3:30 PM CDT Clinical Communication Virtual Review in [place], [place] [address] [place] [address] 11/29/2023 9:00 AM CDT Procedure visit Department of Urology in [place], [place] [address] [place] [phone] Mark Colorado M.D. [address] [place] [address] [place] [address] 11/29/2023 11:20 AM CDT Lab Department of Laboratory Medicine and Pathology, [facility] in [place], [place] [address] [place] [phone] Loyda Lennon M.D. [address] [place] [phone] 11/29/2023 11:30 AM CDT Lab Department of Oncology in [place], [place] [address] [place] [phone] Loyda Lennon M.D. [address] [place] [phone] 11/29/2023 1:00 PM CDT Infusion Department of Oncology in [place], [place] [address] [place] [phone] Loyda Lennon M.D. [address] [place] [phone] 12/03/2023 1:45 PM CDT Comprehensive Visit Department of Urology in [place], [place] [address] [place] [phone] Mona Egan P.A.-C. [address] [place] [phone] 12/05/2023 1:20 PM CDT Comprehensive Visit Department of Oncology in [place], [place] [address] [place] [phone] Letty Kate M.D. [address] [place] [phone] 12/10/2023 3:00 PM CDT Clinical Communication Virtual Review in [place], [place] [address] [place] [address] 12/10/2023 3:30 PM CDT Procedure visit Department of Urology in [place], [place] [address] [place] [phone] Mark Colorado M.D. [address] [place] [address] [place] [address] 12/12/2023 3:45 PM CDT Appointment Department of Radiology, [facility], in [place], [place] [address] [place] [phone] Na Hernandez M.D., Ph.D. [address] [place] [phone] 12/13/2023 6:00 AM CDT Lab Department of Laboratory Medicine and Pathology, [facility], in [place], [place] [address] [place] [phone] Loyda Lennon M.D. [address] [place] [phone] 12/13/2023 6:20 AM CDT Lab Department of Infusion Therapy in [place], [place] [address] [place] [phone] Loyda Lennon M.D. [address] [place] [phone] 12/13/2023 11:10 AM CDT Office Visit Department of Oncology in [place], [place] [address] [place] [phone] Na Hernandez M.D., Ph.D. [address] [place] [phone] 12/13/2023 1:00 PM CDT Infusion Department of Oncology in [place], [place] [address] [place] [phone] Loyda Lennon M.D. [address] [place] [phone] 12/20/2023 9:20 AM CDT Lab Department of Infusion Therapy in [place], [place] [address] [place] [phone] Loyda Lennon M.D. [address] [place] [phone] 12/20/2023 10:30 AM CDT Infusion Department of Oncology in [place], [place] [address] [place] [phone] Loyda Lennon M.D. [address] [place] [phone] 12/25/2023 10:30 AM CDT Appointment Division of Gastroenterology in [place], [place] [address] [place] [phone] Na Hernandez M.D., Ph.D. [address] [place] [phone] 12/27/2023 10:15 AM CDT Lab Department of Oncology in [place], [place] [address] [place] [phone] Loyda Lennon M.D. [address] [place] [phone] 12/27/2023 10:30 AM CDT Lab Department of Laboratory Medicine and Pathology, [facility] in [place], [place] [address] [place] [phone] Loyda Lennon M.D. [address] [place] [phone] 12/27/2023 11:45 AM CDT Infusion Department of Oncology in [place], [place] [address] [place] [phone] Loyda Lennon M.D. [address] [place] [phone] 01/03/2024 1:00 PM CDT Clinical Communication Virtual Review in [place], [place] [address] [place] [address] 01/10/2024 8:00 AM CDT Lab Department of Infusion Therapy in [place], [place] [address] [place] [phone] Loyda Lennon M.D. [address] [place] [phone] 01/10/2024 8:20 AM CDT Lab Department of Laboratory Medicine and Pathology, [facility] in [place], [place] [address] [place] [phone] Loyda Lennon M.D. [address] [place] [phone] 01/10/2024 10:30 AM CDT Office Visit Department of Oncology in [place], [place] [address] [place] [phone] Na Hernandez M.D., Ph.D. [address] [place] [phone] 01/10/2024 11:45 AM CDT Infusion Department of Oncology in [place], [place] [address] [place] [phone] Loyda Lennon M.D. [address] [place] [phone] 01/17/2024 8:45 AM CDT Lab Department of Oncology in [place], [place] [address] [place] [phone] Loyda Lennon M.D. [address] [place] [phone] 01/17/2024 10:00 AM CDT Infusion Department of Oncology in [place], [place] [address] [place] [phone] Loyda Lennon M.D. [address] [place] [phone] 01/24/2024 8:00 AM CDT Lab Department of Laboratory Medicine and Pathology, [facility], in [place], [place] [address] [place] [phone] Loyda Lennon M.D. [address] [place] [phone] 01/24/2024 8:15 AM CDT Lab Department of Oncology in [place], [place] [address] [place] [phone] Loyda Lennon M.D. [address] [place] [phone] 01/24/2024 9:15 AM CDT Infusion Department of Oncology in [place], [place] [address] [place] [phone] Loyda Lennon M.D. [address] [place] [address] Scheduled Procedures Name Priority Associated Diagnoses Date/Ti me HEPATECTOMY RESECTION LIVER Cholangiocarcinoma (HCC) ULTRASOUND LIVER Cholangiocarcinoma (HCC) RECONSTRUCTION PORTAL VEIN Cholangiocarcinoma (HCC) documented as of this encounter Procedures Procedure Name Priority Date/Time Associated Diagnosis Comments C. DIFFICILE TOXIN PCR, F Routine 10/30/2023 1:31 PM CDT Diarrhea documented in this encounter Results * Clostridioides (Clostridium) Difficile Toxin, Molecular Detection, PCR, Feces (10/30/2023 1:31 PM CDT) C. difficile Toxin PCR, F Negative Negative 10/30/2023 7:54 PM CDT R[facility] Stool (Stool) 10/30/2023 1:3 1 PM CDT 10/30/2023 7:00 PM CDT Mark Colorado M.D. LAB MICROBIOLOGY - G ENERAL ORDERABLES [facility] [address] [place] [address], [facility] in [place] [address] [place] [address] documented in this encounter Visit Diagnoses Diagnosis Diarrhea- Primary Cholangiocarcinoma (HCC) Hesitancy Urinary Hypertension Essential Primary documented in this encounter Additional Health Concerns Infection Onset Date Last Indicated Resolved Time Protective Environment 11/07/2022 11/07/2022 documented as of this encounter Care Teams Labor Relations Or Personnel Negotiator Relationship Specialty Start Date End Date Mark Colorado M.D. [address] [place] [place] [phone] PCP - General Family Medicine 11/09/22 documented as of this encounter
--- OUTSIDE RECORDS SUMMARY | 2023-11-05 22:04 | XMS_ITS | Referral Summary ---
Author Organization [facility] Address [address] [place] [address] Care Team Providers Care Life Enrichment Specialist Name Role Phone Mark Colorado M.D. Primary Care Provider [phone] Source Comments Patient records contain information from all sites at [facility]. For routine questions regarding patient records, call [phone] during business hours, M-F 8:00 AM - 5:00 PM Central Time. Record requests for emergency care only can be directed to [phone] at any time.[facility] Encounters Date Type Department Care Team Description 4 11:27 AM CDT - 4 11:59 PM CDT Hospital Encounter Department of Radiology, [facility], in [place], [place] [address] [place] [address] HartgersDolores APRN, C.N.P., M.S. Dysuria Discharge Disposition: Home or Self Care 4 1:00 PM CDT Infusion Department of Oncology in [place], [place] [address] [place] [phone] Na Hernandez M.D., Ph.D. Pure Hypercholesterolemia (Primary Dx); Cholangiocarcinoma (HCC); Cook Jelly Current Drug Therapy, Chemotherapy; Peritoneal Carcinomatosis (HCC); Neutropenia Chemotherapy Induced (HCC) 4 10:40 AM CDT Office Visit Department of Oncology in [place], [place] [address] [place] [phone] Dolores Rosario APRN, C.N.Fela., M.S. Cook Jelly Current Drug Therapy, Chemotherapy (Primary Dx); Cholangiocarcinoma (HCC); Peritoneal Carcinomatosis (HCC); Neutropenia Chemotherapy Induced (HCC) 4 9:20 AM CDT Lab Department of Infusion Therapy in [place], [place] [address] [place] [phone] Na Hernandez M.D., Ph.D. Pure Hypercholesterolemia (Primary Dx); Cholangiocarcinoma (HCC); Cook Jelly Current Drug Therapy, Chemotherapy; Peritoneal Carcinomatosis (HCC); Neutropenia Chemotherapy Induced (HCC) 4 Orders Only Department of Oncology in [place], [place] [address] [place] [phone] Dolores Rosario APRN, C.N.Fela., M.S. Dysuria (Primary Dx) 4 1:00 PM CDT Office Visit Department of Family Medicine, [facility], in [place], [place] [address] [place] [phone] Mark Colorado M.D. Diarrhea (Primary Dx); Cholangiocarcinoma (HCC); Hesitancy Urinary; Hypertension Essential Primary Discharge Disposition: Home or Self Care 4 Orders Only Department of Oncology in [place], [place] [address] [place] [phone] Omero Lopes Cholangiocarcinoma (HCC) (Primary Dx); Correction Current Drug Therapy, Chemotherapy; Peritoneal Carcinomatosis (HCC); Neutropenia Chemotherapy Induced (HCC) 4 7:20 AM CDT Office Visit Department of Oncology in [place], [place] [address] [place] [phone] Dolores Rosario APRN, C.N.P., M.S. Cholangiocarcinoma (HCC) 4 Orders Only Department of Oncology in [place], [place] [address] [place] [address] Omero Lopes 4 Clinical Communication Department of [facility], [facility], in [address] [facility] [address] Mark Colorado M.D. Communication 4 Clinical Communication Department of Oncology in [place], [place] [address] [place] [phone] Bacilio Forrester M.D. 4 Clinical Communication Department of Oncology in [place], [place] [address] [place] [phone] Jodi Rosa RJohanna., O.C.N. Plan moving forward 4 3:09 AM CDT - 4 5:52 PM CDT Hospital Encounter [facility], [facility], [facility], Sixth Floor [address] [place] [phone] Donna Prince M.D., M.P.H. Ricki Navarro M.B., B.Chir. Change Mental Status (Primary Dx); Sepsis (HCC); Elevated Liver Function Test; Retention Urinary; Constipation Slow Transit; Weakness General; Anemia Chemotherapy Induced; Debility [R53.81] Discharge Disposition: Home-Health Care [facility] 4 Orders Only Department of Oncology in [place], [place] [address] [place] [address] Omero Lopes 4 Clinical Communication Division of Gastroenterology in [place], [place] [address] [place] [phone] Isis Fonseca M.D. 4 12:50 PM CDT Ancillary Procedure Department of Gastroenterology 4 1:20 PM CDT Anesthesia Event Division of Gastroenterology in [place], [place] [address] [place] [phone] Lynsey Boyle APRN, CRNA Radosevich, Misty A, M.D. 4 12:55 PM CDT - 4 11:59 PM CDT Hospital Encounter Department of Radiology, [facility], in [place], [place] [address] [place] [phone] Hansa Ye M.D., M.S. Discharge Disposition: Home or Self Care 4 Orders Only Department of Oncology in [place], [place] [address] [place] [phone] Omero Lopes Pure Hypercholesterolemia (Primary Dx); Cholangiocarcinoma (HCC) 4 7:17 PM CDT - 4 10:30 PM CDT Emergency [facility] [address] [place] [phone] Tresa Patino APRN, C.NHoldenPHolden, D.N.P., M.S.N. Abdominal Pain (Primary Dx) Discharge Disposition: Home or Self Care 4 Orders Only Department of Oncology in [place], [place] [address] [place] [phone] Omero Lopes 4 Clinical Communication Department of Oncology in [place], [place] [address] [place] [phone] Sukhi Duong M.S.N., R.N. 4 Refill Department of Oncology in [place], [place] [address] [place] [address] Na Hernandez M.D., Ph.D. Med Refill (Ondansetron, hydromorphone ) 4 10:15 AM CDT Telemedicine Department of [facility], [facility], in [address] [place] [address] Mark Colorado M.D. Cholangiocarcinoma (HCC) (Primary Dx); Hesitancy Urinary; Weakness General Discharge Disposition: Home or Self Care 4 Refill Department of Oncology in [address] [address] Na Hernandez M.D., Ph.D. Med Refill 4 Orders Only Department of Oncology in [address] [address] Omero Lopes Cholangiocarcinoma (HCC) (Primary Dx); Correction Current Drug Therapy, Chemotherapy; Peritoneal Carcinomatosis (HCC); Neutropenia Chemotherapy Induced (HCC) 4 9:20 AM CDT Nurse Only Department of Oncology in [address] [address] Loyda Lennon M.D. Renetta Hayden M, R.N. 4 10:00 AM CDT Infusion Department of Oncology in [address] [phone] Na Hernandez M.D., Ph.D. Pure Hypercholesterolemia (Primary Dx); Cholangiocarcinoma (HCC); Peritoneal Carcinomatosis (HCC); Neutropenia Chemotherapy Induced (HCC); Cook Jelly Current Drug Therapy, Chemotherapy 4 7:15 AM CDT Lab Department of Oncology in [address] [address] Na Hernandez M.D., Ph.D. Pure Hypercholesterolemia (Primary Dx); Cholangiocarcinoma (HCC); Peritoneal Carcinomatosis (HCC); Neutropenia Chemotherapy Induced (HCC); Cook Jelly Current Drug Therapy, Chemotherapy 4 Orders Only Department of Oncology in [address] [address] Omero Lopes Pure Hypercholesterolemia (Primary Dx); Cholangiocarcinoma (HCC) 4 Clinical Communication Department of Oncology in [place], [place] [address] [place] [address] Jodi Rosa R.N., O.C.N. Symptom Assessment (Nausea, pain) 4 Orders Only Department of Oncology in [place], [place] [address] [place] [phone] Omero Lopes Cholangiocarcinoma (HCC) (Primary Dx); Correction Current Drug Therapy, Chemotherapy; Peritoneal Carcinomatosis (HCC); Neutropenia Chemotherapy Induced (HCC) 4 12:00 PM CDT Infusion Department of Oncology in [place], [place] [address] [place] [phone] Na Hernandez M.D., Ph.D. Cook Jelly Current Drug Therapy, Chemotherapy (Primary Dx); Cholangiocarcinoma (HCC); Peritoneal Carcinomatosis (HCC); Neutropenia Chemotherapy Induced (HCC); Pure Hypercholesterolemia 4 9:30 AM CDT Office Visit Department of Oncology in [place], [place] [address] [place] [phone] Yuko Pennington, ALEXA, PJay. Cholangiocarcinoma (HCC); Peritoneal Carcinomatosis (HCC); Neutropenia Chemotherapy Induced (HCC); Cook Jelly Current Drug Therapy, Chemotherapy 4 Orders Only Department of Oncology in [place], [place] [address] [place] [phone] Omero Lopes 4 Orders Only Department of Oncology in [place], [place] [address] [place] [phone] Omero Lopes 4 Orders Only Department of Oncology in [place], [place] [address] [place] [phone] Omero Lopes Peritoneal Carcinomatosis (HCC) (Primary Dx); Cholangiocarcinoma (HCC) 4 1:20 PM CDT Office Visit Department of Oncology in [place], [place] [address] [place] [phone] Na Hernandez M.D., Ph.D. Cholangiocarcinoma (HCC) (Primary Dx) 4 8:02 AM CDT - 4 11:59 PM CDT Hospital Encounter Department of Radiology, [facility], in [address] [address] Na Hernandez M.D., Ph.D. Cholangiocarcinoma (HCC) Discharge Disposition: Home or Self Care 4 Orders Only Department of Oncology in [place], [place] [address] [place] [phone] Omero Lopes 4 Orders Only Department of Oncology in [place], [place] [address] [place] [phone] Omero Lopes Cholangiocarcinoma (HCC) (Primary Dx); Peritoneal Carcinomatosis (HCC); Neutropenia Chemotherapy Induced (HCC); Correction Current Drug Therapy, Chemotherapy 4 9:45 AM CDT Clinical Communication Virtual Review in [place], [place] [address] [place] [address] Blood Pressure 4 Orders Only Department of Oncology in [address] [phone] Na Hernandez M.D., Ph.D. 4 Orders Only Department of Oncology in [address] [address] Omero Lopes Cholangiocarcinoma (HCC) (Primary Dx); Correction Current Drug Therapy, Chemotherapy; Peritoneal Carcinomatosis (HCC); Neutropenia Chemotherapy Induced (HCC) 4 7:30 AM CDT Lab Department of Oncology in [place], [place] [address] [place] [phone] Na Hernandez M.D., Ph.D. Pure Hypercholesterolemia (Primary Dx); Cholangiocarcinoma (HCC); Peritoneal Carcinomatosis (HCC); Neutropenia Chemotherapy Induced (HCC); Cook Jelly Current Drug Therapy, Chemotherapy 4 9:30 AM CDT Infusion Department of Oncology in [place], [place] [address] [place] [address] Na Hernandez M.D., Ph.D. Cook Jelly Current Drug Therapy, Chemotherapy (Primary Dx); Cholangiocarcinoma (HCC); Peritoneal Carcinomatosis (HCC); Neutropenia Chemotherapy Induced (HCC); Pure Hypercholesterolemia 4 Refill Department of Oncology in [place], [place] [address] [place] [phone] Yuko Pennington MPAS, P.A.-C. Med Refill 4 Orders Only Department of Oncology in [place], [place] [address] [place] [address] Omero Lopes Cholangiocarcinoma (HCC) (Primary Dx); Cook Jelly Current Drug Therapy, Chemotherapy; Peritoneal Carcinomatosis (HCC); Neutropenia Chemotherapy Induced (HCC) 4 7:15 AM CDT Lab Department of Oncology in [place], [place] [address] [place] [phone] Na Hernandez M.D., Ph.D. Pure Hypercholesterolemia (Primary Dx); Cholangiocarcinoma (HCC); Peritoneal Carcinomatosis (HCC); Neutropenia Chemotherapy Induced (HCC); Cook Jelly Current Drug Therapy, Chemotherapy 4 8:15 AM CDT Infusion Department of Oncology in [place], [place] [address] [place] [phone] Na Hernandez M.D., Ph.D. Pure Hypercholesterolemia (Primary Dx); Cholangiocarcinoma (HCC); Peritoneal Carcinomatosis (HCC); Neutropenia Chemotherapy Induced (HCC); Cook Jelly Current Drug Therapy, Chemotherapy 4 Orders Only Department of Oncology in [place], [place] [address] [place] [phone] Luna Laboy Cholangiocarcinoma (HCC) (Primary Dx); Correction Current Drug Therapy, Chemotherapy; Peritoneal Carcinomatosis (HCC); Neutropenia Chemotherapy Induced (HCC) 4 11:11 AM CDT - 4 11:59 PM CDT Hospital Encounter Department of Cardiovascular Diseases in [place], [place] [address] [place] [phone] Na Hernandez M.D., Ph.D. Cholangiocarcinoma (HCC) Discharge Disposition: Home or Self Care 4 2:15 PM CDT Infusion Department of Oncology in [place], [place] [address] [place] [phone] Na Hernandez M.D., Ph.D. Cook Jelly Current Drug Therapy, Chemotherapy (Primary Dx); Cholangiocarcinoma (HCC); Peritoneal Carcinomatosis (HCC); Neutropenia Chemotherapy Induced (HCC); Pure Hypercholesterolemia 4 1:20 PM CDT Office Visit Department of Oncology in [place], [place] [address] [place] [address] Na Hernandez M.D., Ph.D. Cholangiocarcinoma (HCC); Peritoneal Carcinomatosis (HCC); Neutropenia Chemotherapy Induced (HCC); Correction Current Drug Therapy, Chemotherapy 4 Orders Only Department of Oncology in [place], [place] [address] [place] [phone] Tao, Karen R 4 2:39 AM CDT - 4 6:29 AM CDT Emergency [facility] [address] [place] [phone] Erin Maldonado P.A.-Reva., P.A., M.S. Headache Unspecified (Primary Dx); Pain Chest Atypical Discharge Disposition: Home or Self Care 4 Refill Department of Oncology in [place], [place] [address] [place] [phone] Lee Woods M.D., M.P.H. Med Refill (Hydromorphone ) 4 Orders Only Department of Oncology in [place], [place] [address] [place] [phone] Tao, Karen R 4 Documentation Department of Oncology in [place], [place] [address] [place] [phone] Loyda Lennon M.D. 4 11:30 AM CDT Infusion Department of Oncology in [place], [place] [address] [place] [phone] Yuko Pennington MPAS, P.A.-C. Cook Jelly Current Drug Therapy, Chemotherapy (Primary Dx); Cholangiocarcinoma (HCC); Peritoneal Carcinomatosis (HCC); Neutropenia Chemotherapy Induced (HCC) 4 Orders Only Department of Oncology in [place], [place] [address] [place] [phone] Tao Karen R Cholangiocarcinoma (HCC) (Primary Dx); Cook Jelly Current Drug Therapy, Chemotherapy; Peritoneal Carcinomatosis (HCC); Neutropenia Chemotherapy Induced (HCC) 4 9:00 AM CDT Infusion Department of Oncology in [place], [place] [address] [place] [phone] Yuko Pennington MPAS, P.A.-C. Pure Hypercholesterolemia (Primary Dx); Cholangiocarcinoma (HCC); Correction Current Drug Therapy, Chemotherapy; Peritoneal Carcinomatosis (HCC); Neutropenia Chemotherapy Induced (HCC) 4 Orders Only Department of Oncology in [place], [place] [address] [place] [phone] Yuko Pennington MPAS, P.A.-C. Cholangiocarcinoma (HCC) (Primary Dx); Peritoneal Carcinomatosis (HCC); Neutropenia Chemotherapy Induced (HCC); Cook Jelly Current Drug Therapy, Chemotherapy 4 Orders Only Department of Oncology in [address] [phone] Tao Karen R Cholangiocarcinoma (HCC) (Primary Dx); Cook Jelly Current Drug Therapy, Chemotherapy; Peritoneal Carcinomatosis (HCC); Neutropenia Chemotherapy Induced (HCC) 4 10:00 AM CDT Infusion Department of Oncology in [place], [place] [address] [place] [phone] Yuko Pennington MPAS, P.A.-C. Pure Hypercholesterolemia (Primary Dx); Cholangiocarcinoma (HCC); Cook Jelly Current Drug Therapy, Chemotherapy; Peritoneal Carcinomatosis (HCC); Neutropenia Chemotherapy Induced (HCC) 4 8:45 AM CDT Lab Department of Oncology in [place], [place] [address] [place] [address] Yuko Pennington MPAS, P.A.-C. Pure Hypercholesterolemia (Primary Dx); Cholangiocarcinoma (HCC) 4 Orders Only Department of Oncology in [place], [place] [address] [place] [address] Tao, Karen R 4 Orders Only Department of Oncology in [place], [place] [address] [place] [phone] Tao, Karen R Cholangiocarcinoma (HCC) (Primary Dx); Correction Current Drug Therapy, Chemotherapy; Peritoneal Carcinomatosis (HCC); Neutropenia Chemotherapy Induced (HCC) 4 10:00 AM CDT Infusion Department of Oncology in [place], [place] [address] [place] [phone] Yuko Pennington MPAS, P.A.-C. Correction Current Drug Therapy, Chemotherapy (Primary Dx); Cholangiocarcinoma (HCC); Peritoneal Carcinomatosis (HCC); Neutropenia Chemotherapy Induced (HCC); Pure Hypercholesterolemia 4 9:15 AM CDT Lab Department of Oncology in [place], [place] [address] [place] [phone] Yuko Pennington MPAS, P.A.-C. Pure Hypercholesterolemia (Primary Dx); Cholangiocarcinoma (HCC) 4 Orders Only Department of Oncology in [place], [place] [address] [place] [phone] Tao, Karen R Cholangiocarcinoma (HCC) (Primary Dx) 4 Orders Only Department of Oncology in [place], [place] [address] [place] [phone] Tao, Karen R Cholangiocarcinoma (HCC) (Primary Dx); Correction Current Drug Therapy, Chemotherapy; Peritoneal Carcinomatosis (HCC) 4 2:00 PM CDT Infusion Department of Oncology in [place], [place] [address] [place] [address] Yuko Pennington MPAS, P.A.-C. Pure Hypercholesterolemia (Primary Dx); Cholangiocarcinoma (HCC); Cook Jelly Current Drug Therapy, Chemotherapy; Peritoneal Carcinomatosis (HCC) 4 1:10 PM CDT Office Visit Department of Oncology in [place], [place] [address] [place] [address] Yuko Pennington MPAS, P.A.-C. Peritoneal Carcinomatosis (HCC) (Primary Dx); Cholangiocarcinoma (HCC); Correction Current Drug Therapy, Chemotherapy 4 Orders Only Department of Oncology in [place], [place] [address] [place] [address] Karen Burger R 4 Clinical Communication Department of Oncology in [place], [place] [address] [place] [address] Tavia Arroyo, RHoldenNHolden 4 Orders Only Department of Oncology in [place], [place] [address] [place] [address] Connie Burgerda R Cholangiocarcinoma (HCC) (Primary Dx) 4 Orders Only Department of Oncology in [place], [place] [address] [place] [address] Connie Burgerda R Cholangiocarcinoma (HCC) (Primary Dx); Peritoneal Carcinomatosis (HCC); Correction Current Drug Therapy, Chemotherapy; Neutropenia Chemotherapy Induced (HCC) from Last 3 Months Allergies No known active allergies Medications Medication Sig Dispensed Refills Start Date End Date Status cholecalciferol (VITAMIN D3) 125 mcg (5,000 Unit) capsule Take 125 mcg by mouth daily. Active coenzyme Q10 (CO Q-10) 10 mg capsule Take 10 mg by mouth daily. 12/02/19 21 Active cyanocobalamin (VITAMIN B12) 1,000 mcg tablet Take 1,000 mcg by mouth every other day. 12/06/19 22 Active docusate sodium (Colace) 100 mg capsule Take 200 mg by mouth daily. Active glucosamine [id number]-bdw 500-200-150 mg tablet Take 1 tablet by mouth daily. 12/06/19 22 Active bisacodyL (DULCOLAX) 10 mg suppositoryIndicat ions:Constipation Slow Transit Insert 1 suppository (10 mg total) into the rectum daily as needed for constipation. 30 suppository 09/13/19 Active polyethylene glycol (MIRALAX) 17 gram/dose oral [...] times a day. 90 tablet 2 03/03/20 Active Additional Information Patient taking differently:8.6 mg oral,(No frequency reported), Daily prn, Reported on 05/16/2023 dexAMETHasone (DECADRON) 4 mg tablet Take 1 tablet (4 mg total) by mouth daily. 3 tablet 08/30/19 Active Additional Information Patient taking differently:4 mg oralAs needed, nausea, vomiting, Emergency supply 3 tablets only if needed., Informant: Self, Reported on 09/26/2023 amLODIPine (Norvasc) 10 mg tablet Take 1 tablet (10 mg total) by mouth daily. 90 tablet 1 10/08/19 24 024 Active Additional Information Patient taking differently:10 mg oralDaily at bedtime, Reported on 10/22/2023 ondansetron ODT (Zofran-ODT) 8 mg disintegrating tablet Dissolve 1 tablet (8 mg total) in the mouth every 8 (eight) hours as needed for nausea or vomiting. 20 tablet 3 07/17/20 24 Active HYDROmorphone (Dilaudid) 2 mg tabletIndications: [...] Active prochlorperazine (COMPAZINE) 10 mg tabletIndications: Cholangiocarcinoma (HCC),Correction Current Drug Therapy, Chemotherapy Take 1 tablet [...] Anemia Drug Induced 11/22/2022 Weakness General 11/22/2022 Cook Jelly Current Drug Therapy, Chemotherapy Cholangiocarcinoma 10/15/2022 Cancer Staging:Clinical stage from 10/12/2022:Stage IB(cT1b, cN0, cM0) - Signed by Na Hernandez M.D., Ph.D. on 12/21/2022 Pathologic stage from 01/09/2023:Stage IV(pM1) - Signed by Na Hernandez M.D., Ph.D. on 01/16/2023 Pure Hypercholesterolemia 11/17/20182022 Immunizations Name Administration Dates Next Due Influenza high dose QV(65 ye ars or older) (PF) 01/29/2023,01/15/2022,01/23/2021 PCV13 11/17/2018 PPSV23 12/01/2019 SARS-COV-2 (COVID-19) - MODE RNA (12 YEARS AND OLDER) [id number] 01/29/2023 Tdap 05/28/2013 Social History Tobacco Use Types Packs/Day Years Used Date Smoking Tobacco: Never Passive Smoke Exposure: Never Smokeless Tobacco: Never Tobacco Cessation:Counseling Given: Not Answered Alcohol Use Standard Drinks/Week Comments Not Currently 0 (1 standard drink = 0.6 oz pur e alcohol) [facility] Utilities Answer Date Recorded In the past 12 months has e [employer], gas, oil, or water company threatened to [...] your living situation today? I have a [facility] place to live 10/22/2023 Sex and [...] PM CDT Clinical Communication Virtual Review in [place], [place] [address] [place] [address] 11/15/2023 6:40 AM CDT Lab Department of Laboratory Medicine and Pathology, [facility], in [place], [place] [address] [place] [phone] Loyda Lennon M.D. [address] [place] [phone] 11/15/2023 8:20 AM CDT Office Visit Department of Oncology in [place], [place] [address] [place] [phone] Manjit Velasquez APRN, C.N.P., D.N.P. [address] [place] [phone] 11/15/2023 9:30 AM CDT Comprehensive Visit Department of Palliative Care in [place], [place] [address] [place] [phone] Patty Gomez APRN, C.N.P., M.S.N. [address] [place] [phone] 11/15/2023 2:15 PM CDT Infusion Department of Oncology in [place], [place] [address] [place] [phone] Loyda Lennon M.D. [address] [place] [phone] 11/22/2023 7:30 AM CDT Lab Department of Oncology in [place], [place] [address] [place] [phone] Loyda Lennon M.D. [address] [place] [phone] 11/22/2023 8:45 AM CDT Infusion Department of Oncology in [place], [place] [address] [place] [phone] Loyda Lennon M.D. [address] [place] [phone] 11/28/2023 3:30 PM CDT Clinical Communication Virtual Review in [place], [place] [address] [place] [address] 11/29/2023 9:00 AM CDT Procedure visit Department of Urology in [place], [place] [address] [place] [phone] Mark Colorado M.D. [address] [place] [address] [place] [address] 11/29/2023 11:20 AM CDT Lab Department of Laboratory Medicine and Pathology, [facility] in [place], [place] [address] [place] [phone] Loyda Lennon M.D. [address] [place] [phone] 11/29/2023 11:30 AM CDT Lab Department of Oncology in [place], [place] [address] [place] [phone] Loyda Lennon M.D. [address] [place] [phone] 11/29/2023 1:00 PM CDT Infusion Department of Oncology in [place], [place] [address] [place] [phone] Loyda Lennon M.D. [address] [place] [phone] 12/03/2023 1:45 PM CDT Comprehensive Visit Department of Urology in [place], [place] [address] [place] [phone] Mona Egan P.A.-C. [address] [place] [phone] 12/05/2023 1:20 PM CDT Comprehensive Visit Department of Oncology in [place], [place] [address] [place] [phone] Letty Kate M.D. [address] [place] [phone] 12/10/2023 3:00 PM CDT Clinical Communication Virtual Review in [place], [place] [address] [place] [address] 12/10/2023 3:30 PM CDT Procedure visit Department of Urology in [place], [place] [address] [place] [phone] Mark Colorado M.D. [address] [place] [address] [place] [address] 12/12/2023 3:45 PM CDT Appointment Department of Radiology, [facility], in [place], [place] [address] [place], [place] [phone] Na Hernandez M.D., Ph.D. [address] [place] [phone] 12/13/2023 6:00 AM CDT Lab Department of Laboratory Medicine and Pathology, [facility], in [place], [place] [address] [place] [phone] Loyda Lennon M.D. [address] [place] [phone] 12/13/2023 6:20 AM CDT Lab Department of Infusion Therapy in [place], [place] [address] [place] [phone] Loyda Lennon M.D. [address] [place] [phone] 12/13/2023 11:10 AM CDT Office Visit Department of Oncology in [place], [place] [address] [place] [phone] Na Hernandez M.D., Ph.D. [address] [place] [phone] 12/13/2023 1:00 PM CDT Infusion Department of Oncology in [place], [place] [address] [place] [phone] Loyda Lennon M.D. [address] [place] [phone] 12/20/2023 9:20 AM CDT Lab Department of Infusion Therapy in [place], [place] [address] [place] [phone] Loyda Lennon M.D. [address] [place] [phone] 12/20/2023 10:30 AM CDT Infusion Department of Oncology in [place], [place] [address] [place] [phone] Loyda Lennon M.D. [address] [place] [phone] 12/25/2023 10:30 AM CDT Appointment Division of Gastroenterology in [place], [place] [address] [place] [phone] Na Hernandez M.D., Ph.D. [address] [place] [phone] 12/27/2023 10:15 AM CDT Lab Department of Oncology in [place], [place] [address] [place] [phone] Loyda Lennon M.D. [address] [place] [phone] 12/27/2023 10:30 AM CDT Lab Department of Laboratory Medicine and Pathology, [facility], in [place], [place] [address] [place] [phone] Loyda Lennon M.D. [address] [place] [phone] 12/27/2023 11:45 AM CDT Infusion Department of Oncology in [place], [place] [address] [place] [phone] Loyda Lennon M.D. [address] [place] [phone] 01/03/2024 1:00 PM CDT Clinical Communication Virtual Review in [place], [place] 200 [place] [phone] 01/10/2024 8:00 AM CDT Lab Department of Infusion Therapy in [address] [phone] Loyda Lennon M.D. [address] [place] [phone] 01/10/2024 8:20 AM CDT Lab Department of Laboratory Medicine and Pathology, [facility] in [place], [place] [address] [place] [phone] Loyda Lennon M.D. [address] [place] [phone] 01/10/2024 10:30 AM CDT Office Visit Department of Oncology in [address] [phone] Na Hernandez M.D., Ph.D. [address] [place] [phone] 01/10/2024 11:45 AM CDT Infusion Department of Oncology in [place], [place] [address] [place] [phone] Loyda Lennon M.D. [address] [place] [phone] 01/17/2024 8:45 AM CDT Lab Department of Oncology in [place], [place] [address] [place] [phone] Loyda Lennon M.D. [address] [place] [phone] 01/17/2024 10:00 AM CDT Infusion Department of Oncology in [place], [place] [address] [place] [phone] Loyda Lennon M.D. [address] [place] [phone] 01/24/2024 8:00 AM CDT Lab Department of Laboratory Medicine and Pathology, [facility] in [place], [place] [address] [place] [phone] Loyda Lennon M.D. [address] [place] [phone] 01/24/2024 8:15 AM CDT Lab Department of Oncology in [place], [place] [address] [place] [phone] Loyda Lennon M.D. [address] [place] [phone] 01/24/2024 9:15 AM CDT Infusion Department of Oncology in [place], [place] [address] [place] [phone] Lyoda Lennon M.D. [address] [place] [phone] Scheduled Procedures Name Priority Associated Diagnoses Date/Ti me HEPATECTOMY RESECTION LIVER Cholangiocarcinoma (HCC) ULTRASOUND LIVER Cholangiocarcinoma (HCC) RECONSTRUCTION PORTAL VEIN Cholangiocarcinoma (HCC) Medical Devices Implanted Type Area Security Orderly Device Identifier Shelf Expiration Date Model / Serial / Lot Titanium Plate Hardware e.g. pins/screws/ro ds Cranial Description:Titanium Plate i n skull Prt Cath Infus Mri Intrmd 8f - [id number] Implanted:Qty: 1 on 10/23/2022 by Bal Menjivar M.D. at [facility] Implantable [employer] 10/30/2023 [id number] / / [id number] [facility] 10fx22 - [id number] Implanted:Qty: 1 on 10/22/2023 by Yariel Flores M.D., M.S. at [facility] Pancreatic Stent N/A: Bile Duct [employer] 07/16/2026 [id number] / / [id number] Description:Cut at 18 cm [facility] Wdg 10fx22 - [id number] Implanted:Qty: 1 on 10/22/2023 by Yariel Flores M.D., M.S. at [facility] Pancreatic Stent N/A: Bile Duct [employer] 07/29/2026 [id number] / / [id number] Description:Cut length to 17 cm Explanted Type Area Security Orderly Device Identifier Shelf Expiration Date Model / Serial / [facility] 5fx5 - [id number] Implanted:Qty: 1 on 10/12/2022 by Fab Frankel M.D., M.P.H. at [facility]/Ramin Explanted:Qty: 1 on 10/30/2022 by Dallas Vallecillo M.D. at [facility] Biliary Stent [employer] 01/11/2025 [id number] / / [id number] Description:Geenen Pancreati c Stent [facility] Ctt Otw 7f 12 - [id number] Implanted:Qty: 1 on 10/12/2022 by Fab Frankel M.D., M.P.H. at [facility] Latif/Gonda Explanted:Qty: 1 on 10/30/2022 by Dallas Vallecillo M.D. at [facility] Biliary Stent [employer] 01/30/2025 [id number] / / [id number] [facility] 7f 12 - [id number] Implanted:Qty: 1 on 10/12/2022 by Fab Frankel M.D., M.P.H. at [facility] Latif/Gonda Explanted:Qty: 1 on 10/30/2022 by Dallas Vallecillo M.D. at [facility] Biliary Stent [employer] 01/30/2025 [id number] / / [id number] [facility] Wdg 10fx22 - [id number] Implanted:Qty: 1 on 10/30/2022 by Dallas Vallecillo M.D. at [facility] Explanted:Qty: 1 on 01/07/2023 by Brianna Hopson M.D. at [facility] Latif/Gonda Biliary Stent [employer] 09/06/2025 [id number] / / [id number] [facility] Pncr Wdg 8.5fx22 - [id number] Implanted:Qty: 1 on 10/30/2022 by Dallas Vallecillo M.D. at [facility] Explanted:Qty: 1 on 01/07/2023 by Brianna Hopson M.D. at [facility] Latif/[employer]onda Biliary Stent [employer] 07/19/2025 [id number] / / [id number] [facility] Pn Wdg 10fx22 - [id number] Implanted:Qty: 1 on 01/07/2023 by Brianna Hopson M.D. at [facility] Latif/Gonda Explanted:Qty: 1 on 04/30/2023 by Dallas Vallecillo M.D. at [facility] Latif/[employer]onda Biliary Stent [employer] 11/22/2025 [id number] / / [id number] Description:10x16 [facility] 10fx22 - [id number] Implanted:Qty: 1 on 01/07/2023 by Brianna Hopson M.D. at [facility]/[employer]onda Explanted:Qty: 1 on 04/30/2023 by Dallas Vallecillo M.D. at [facility] Biliary Stent [employer] 11/22/2025 [id number] / / [id number] Description:10x22 [facility] W[facility] 10fx22 - [id number] Implanted:Qty: 1 on 04/30/2023 by Dallas Vallecillo M.D. at [facility] Explanted:Qty: 1 on 08/02/2023 by Dallas Vallecillo M.D. at [facility] Pancreatic Stent [employer] 03/14/2026 [id number] / / [id number] Description:10x22 [facility] Pncr Wdg 10fx22 - [id number] Implanted:Qty: 1 on 04/30/2023 by Dallas Vallecillo M.D. at [facility] Explanted:Qty: 1 on 08/02/2023 by [facility] Pancreatic Stent [employer] 03/14/2026 [id number] / / [id number] Description:10x18.5 [facility] Pncr Wdg 10fx22 - [id number] Implanted:Qty: 1 on 08/02/2023 by Dallas Vallecillo M.D. at [facility] Explanted:Qty: 1 on 10/22/2023 by Yariel Flores M.D., M.S. at [facility] Pancreatic Stent N/A: Bile Duct [employer] 06/17/2026 [id number] / / [id number] Description:10x20 [facility] Wdg 10fx22 - [id number] Implanted:Qty: 1 on 08/02/2023 by Dallas Vallecillo M.D. at [facility] [employer]Gonda Explanted:Qty: 1 on 10/22/2023 by Yariel Flores M.D., M.S. at [facility] Pancreatic Stent N/A: Bile Duct [employer] 06/23/2026 [id number] / / [id number] Description:10x18.5 Procedures Procedure Name Priority Date/Time Associated Diagnosis Comments US URINARY BLADDER RAD - Routine (most inpatients and all outpatients) 11/01/2023 11:58 AM CDT Dysuria MICROSCOPIC AUTOMATED Routine 11/01/2023 9:38 AM CDT UA DIPSTICK W/MICROSCOPIC RESEARCH Routine 11/01/2023 9:38 AM CDT Cholangiocarcinoma (HCC) Cook Jelly Current Drug Therapy, Chemotherapy Peritoneal Carcinomatosis (HCC) Neutropenia Chemotherapy Induced (HCC) PROSTATE-SPECIFIC AG (PSA) SCRN, S Routine 11/01/2023 9:20 AM CDT Cholangiocarcinoma (HCC) NT-PRO B-TYPE NATRIURETIC PEPTIDE (BNP), S Routine 11/01/2023 9:20 AM CDT Cholangiocarcinoma (HCC) [employer] Current Drug Therapy, Chemotherapy Peritoneal Carcinomatosis (HCC) Neutropenia Chemotherapy Induced (HCC) TROPONIN I, HIGH SENSITIVITY, P Routine 11/01/2023 9:20 AM CDT Cholangiocarcinoma (HCC) [employer] Current Drug Therapy, Chemotherapy Peritoneal Carcinomatosis (HCC) Neutropenia Chemotherapy Induced (HCC) LIPASE, S/P Routine 11/01/2023 9:20 AM CDT Cholangiocarcinoma (HCC) [employer] Current Drug Therapy, Chemotherapy Peritoneal Carcinomatosis (HCC) Neutropenia Chemotherapy Induced (HCC) AMYLASE, TOT, S Routine 11/01/2023 9:20 AM CDT Cholangiocarcinoma (HCC) Correction Current Drug Therapy, Chemotherapy Peritoneal Carcinomatosis (HCC) Neutropenia Chemotherapy Induced (HCC) PHOSPHORUS (INORGANIC), S Routine 11/01/2023 9:20 AM CDT Cholangiocarcinoma (HCC) Cook [employer] Current Drug Therapy, Chemotherapy Peritoneal Carcinomatosis (HCC) Neutropenia Chemotherapy Induced (HCC) MAGNESIUM, S Routine 11/01/2023 9:20 AM CDT Cholangiocarcinoma (HCC) Correction Current Drug Therapy, Chemotherapy Peritoneal Carcinomatosis (HCC) Neutropenia Chemotherapy Induced (HCC) URIC ACID, S/P Routine 11/01/2023 9:20 AM CDT Cholangiocarcinoma (HCC) Cook Jelly Current Drug Therapy, Chemotherapy Peritoneal Carcinomatosis (HCC) Neutropenia Chemotherapy Induced (HCC) LACTATE DEHYDROGENASE (LD), S Routine 11/01/2023 9:20 AM CDT Cholangiocarcinoma (HCC) Correction Current Drug Therapy, Chemotherapy Peritoneal Carcinomatosis (HCC) Neutropenia Chemotherapy Induced (HCC) COMPREHENSIVE METABOLIC PANEL, S/P Routine 11/01/2023 9:20 AM CDT Cholangiocarcinoma (HCC) Cook Jelly Current Drug Therapy, Chemotherapy Peritoneal Carcinomatosis (HCC) Neutropenia Chemotherapy Induced (HCC) CBC WITH DIFFERENTIAL, B Routine 11/01/2023 9:20 AM CDT Cholangiocarcinoma (HCC) Correction Current Drug Therapy, Chemotherapy Peritoneal Carcinomatosis (HCC) Neutropenia Chemotherapy Induced (HCC) C. DIFFICILE TOXIN PCR, F Routine 10/30/2023 1:31 PM CDT Diarrhea MICROSCOPIC AUTOMATED Routine 10/29/2023 6:24 AM CDT UA DIPSTICK W/MICROSCOPIC RESEARCH Routine 10/29/2023 6:24 AM CDT Cholangiocarcinoma (HCC) Correction Current Drug Therapy, Chemotherapy Peritoneal Carcinomatosis (HCC) Neutropenia Chemotherapy Induced (HCC) NT-PRO B-TYPE NATRIURETIC PEPTIDE (BNP), S Routine 10/29/2023 6:12 AM CDT Cholangiocarcinoma (HCC) Correction Current Drug Therapy, Chemotherapy Peritoneal Carcinomatosis (HCC) Neutropenia Chemotherapy Induced (HCC) TROPONIN I, HIGH SENSITIVITY, P Routine 10/29/2023 6:12 AM CDT Cholangiocarcinoma (HCC) Correction Current Drug Therapy, Chemotherapy Peritoneal Carcinomatosis (HCC) Neutropenia Chemotherapy Induced (HCC) LIPASE, S/P Routine 10/29/2023 6:12 AM CDT Cholangiocarcinoma (HCC) Correction Current Drug Therapy, Chemotherapy Peritoneal Carcinomatosis (HCC) Neutropenia Chemotherapy Induced (HCC) AMYLASE, TOT, S Routine 10/29/2023 6:12 AM CDT Cholangiocarcinoma (HCC) Correction Current Drug Therapy, Chemotherapy Peritoneal Carcinomatosis (HCC) Neutropenia Chemotherapy Induced (HCC) PHOSPHORUS (INORGANIC), S Routine 10/29/2023 6:12 AM CDT Cholangiocarcinoma (HCC) Cook Jelly Current Drug Therapy, Chemotherapy Peritoneal Carcinomatosis (HCC) Neutropenia Chemotherapy Induced (HCC) MAGNESIUM, S Routine 10/29/2023 6:12 AM CDT Cholangiocarcinoma (HCC) Correction Current Drug Therapy, Chemotherapy Peritoneal Carcinomatosis (HCC) Neutropenia Chemotherapy Induced (HCC) URIC ACID, S/P Routine 10/29/2023 6:12 AM CDT Cholangiocarcinoma (HCC) Cook Jelly Current Drug Therapy, Chemotherapy Peritoneal Carcinomatosis (HCC) Neutropenia Chemotherapy Induced (HCC) LACTATE DEHYDROGENASE (LD), S Routine 10/29/2023 6:12 AM CDT Cholangiocarcinoma (HCC) Cook [employer] Current Drug Therapy, Chemotherapy Peritoneal Carcinomatosis (HCC) Neutropenia Chemotherapy Induced (HCC) COMPREHENSIVE METABOLIC PANEL, S/P Routine 10/29/2023 6:12 AM CDT Cholangiocarcinoma (HCC) Cook Jelly Current Drug Therapy, Chemotherapy Peritoneal Carcinomatosis (HCC) Neutropenia Chemotherapy Induced (HCC) CBC WITH DIFFERENTIAL, B Routine 10/29/2023 6:12 AM CDT Cholangiocarcinoma (HCC) Cook Jelly Current Drug Therapy, Chemotherapy Peritoneal Carcinomatosis (HCC) [...] Peritoneal Carcinomatosis (HCC) Neutropenia Chemotherapy Induced (HCC) Cook Jelly Current Drug Therapy, Chemotherapy ACTIVATED PARTIAL THROMBOPLASTIN TIME (APTT), P Routine 10/08/2023 7:59 AM CDT Cholangiocarcinoma (HCC) Peritoneal Carcinomatosis (HCC) Neutropenia Chemotherapy Induced (HCC) Correction Current Drug Therapy, Chemotherapy PROTHROMBIN TIME (PT), P Routine 10/08/2023 7:59 AM CDT Cholangiocarcinoma (HCC) Peritoneal Carcinomatosis (HCC) Neutropenia Chemotherapy Induced (HCC) Cook Jelly Current Drug Therapy, Chemotherapy NT-PRO B-TYPE NATRIURETIC PEPTIDE (BNP), S Routine 10/08/2023 7:59 AM CDT Cholangiocarcinoma (HCC) Peritoneal Carcinomatosis (HCC) Neutropenia Chemotherapy Induced (HCC) Cook Jelly Current Drug Therapy, Chemotherapy TROPONIN I, HIGH SENSITIVITY, P Routine 10/08/2023 7:59 AM CDT Cholangiocarcinoma (HCC) Peritoneal Carcinomatosis (HCC) Neutropenia Chemotherapy Induced (HCC) Cook Jelly Current Drug Therapy, Chemotherapy LIPASE, S/P Routine 10/08/2023 7:59 AM CDT Cholangiocarcinoma (HCC) Peritoneal Carcinomatosis (HCC) Neutropenia Chemotherapy Induced (HCC) Correction Current Drug Therapy, Chemotherapy AMYLASE, TOT, S Routine 10/08/2023 7:59 AM CDT Cholangiocarcinoma (HCC) Peritoneal Carcinomatosis (HCC) Neutropenia Chemotherapy Induced (HCC) Correction Current Drug Therapy, Chemotherapy PHOSPHORUS (INORGANIC), S Routine 10/08/2023 7:59 AM CDT Cholangiocarcinoma (HCC) Peritoneal Carcinomatosis (HCC) Neutropenia Chemotherapy Induced (HCC) Correction Current Drug Therapy, Chemotherapy MAGNESIUM, S Routine 10/08/2023 7:59 AM CDT Cholangiocarcinoma (HCC) Peritoneal Carcinomatosis (HCC) Neutropenia Chemotherapy Induced (HCC) Cook Jelly Current Drug Therapy, Chemotherapy URIC ACID, S/P Routine 10/08/2023 7:59 AM CDT Cholangiocarcinoma (HCC) Peritoneal Carcinomatosis (HCC) Neutropenia Chemotherapy Induced (HCC) Cook Jelly Current Drug Therapy, Chemotherapy LACTATE DEHYDROGENASE (LD), S Routine 10/08/2023 7:59 AM CDT Cholangiocarcinoma (HCC) Peritoneal Carcinomatosis (HCC) Neutropenia Chemotherapy Induced (HCC) Correction Current Drug Therapy, Chemotherapy COMPREHENSIVE METABOLIC PANEL, S/P Routine 10/08/2023 7:59 AM CDT Cholangiocarcinoma (HCC) Peritoneal Carcinomatosis (HCC) Neutropenia Chemotherapy Induced (HCC) Correction Current Drug Therapy, Chemotherapy CBC WITH DIFFERENTIAL, B Routine 10/08/2023 7:59 AM CDT Cholangiocarcinoma (HCC) Peritoneal Carcinomatosis (HCC) Neutropenia Chemotherapy Induced (HCC) Cook Jelly Current Drug Therapy, Chemotherapy MICROSCOPIC AUTOMATED Routine 10/08/2023 7:21 AM CDT UA DIPSTICK W/MICROSCOPIC RESEARCH Routine 10/08/2023 7:21 AM CDT Cholangiocarcinoma (HCC) Peritoneal Carcinomatosis (HCC) Neutropenia Chemotherapy Induced (HCC) Correction Current Drug Therapy, Chemotherapy CT ABDOMEN PELVIS [...] Peritoneal Carcinomatosis (HCC) Neutropenia Chemotherapy Induced (HCC) Cook Jelly Current Drug Therapy, Chemotherapy NT-PRO B-TYPE NATRIURETIC PEPTIDE (BNP), S Routine 09/24/2023 7:21 AM CDT Cholangiocarcinoma (HCC) Peritoneal Carcinomatosis (HCC) Neutropenia Chemotherapy Induced (HCC) Cook Jelly Current Drug Therapy, Chemotherapy TROPONIN I, HIGH SENSITIVITY, P Routine 09/24/2023 7:21 AM CDT Cholangiocarcinoma (HCC) Peritoneal Carcinomatosis (HCC) Neutropenia Chemotherapy Induced (HCC) Cook Jelly Current Drug Therapy, Chemotherapy LIPASE, S/P Routine 09/24/2023 7:21 AM CDT Cholangiocarcinoma (HCC) Peritoneal Carcinomatosis (HCC) Neutropenia Chemotherapy Induced (HCC) Correction Current Drug Therapy, Chemotherapy AMYLASE, TOT, S Routine 09/24/2023 7:21 AM CDT Cholangiocarcinoma (HCC) Peritoneal Carcinomatosis (HCC) Neutropenia Chemotherapy Induced (HCC) Cook Jelly Current Drug Therapy, Chemotherapy PHOSPHORUS (INORGANIC), S Routine 09/24/2023 7:21 AM CDT Cholangiocarcinoma (HCC) Peritoneal Carcinomatosis (HCC) Neutropenia Chemotherapy Induced (HCC) Correction Current Drug Therapy, Chemotherapy MAGNESIUM, S Routine 09/24/2023 7:21 AM CDT Cholangiocarcinoma (HCC) Peritoneal Carcinomatosis (HCC) Neutropenia Chemotherapy Induced (HCC) Correction Current Drug Therapy, Chemotherapy URIC ACID, S/P Routine 09/24/2023 7:21 AM CDT Cholangiocarcinoma (HCC) Peritoneal Carcinomatosis (HCC) Neutropenia Chemotherapy Induced (HCC) Correction Current Drug Therapy, Chemotherapy LACTATE DEHYDROGENASE (LD), S Routine 09/24/2023 7:21 AM CDT Cholangiocarcinoma (HCC) Peritoneal Carcinomatosis (HCC) Neutropenia Chemotherapy Induced (HCC) Cook Jelly Current Drug Therapy, Chemotherapy COMPREHENSIVE METABOLIC PANEL, S/P Routine 09/24/2023 7:21 AM CDT Cholangiocarcinoma (HCC) Peritoneal Carcinomatosis (HCC) Neutropenia Chemotherapy Induced (HCC) Cook Jelly Current Drug Therapy, Chemotherapy CBC WITH DIFFERENTIAL, B Routine 09/24/2023 7:21 AM CDT Cholangiocarcinoma (HCC) Peritoneal Carcinomatosis (HCC) Neutropenia Chemotherapy Induced (HCC) Cook Jelly Current Drug Therapy, Chemotherapy CARBOHYDRATE AG 19-9 (CA 19-9), S Routine 09/24/2023 7:19 AM CDT Cholangiocarcinoma (HCC) CBC WITH DIFFERENTIAL, B Routine 09/17/2023 7:42 AM CDT Cholangiocarcinoma (HCC) Peritoneal Carcinomatosis (HCC) Neutropenia Chemotherapy Induced (HCC) Cook Jelly Current Drug Therapy, Chemotherapy (TTE) 2D ECHO DOPPLER COLOR Routine 09/10/2023 12:35 PM CDT Cholangiocarcinoma (HCC) MICROSCOPIC AUTOMATED Routine 09/10/2023 9:51 AM CDT UA DIPSTICK W/MICROSCOPIC RESEARCH Routine 09/10/2023 9:51 AM CDT Cholangiocarcinoma (HCC) Peritoneal Carcinomatosis (HCC) Neutropenia Chemotherapy Induced (HCC) Cook Jelly Current Drug Therapy, Chemotherapy ACTIVATED PARTIAL THROMBOPLASTIN TIME (APTT), P Routine 09/10/2023 9:23 AM CDT Cholangiocarcinoma (HCC) Peritoneal Carcinomatosis (HCC) Neutropenia Chemotherapy Induced (HCC) Cook Jelly Current Drug Therapy, Chemotherapy PROTHROMBIN TIME (PT), P Routine 09/10/2023 9:23 AM CDT Cholangiocarcinoma (HCC) Peritoneal Carcinomatosis (HCC) Neutropenia Chemotherapy Induced (HCC) Correction Current Drug Therapy, Chemotherapy NT-PRO B-TYPE NATRIURETIC PEPTIDE (BNP), S Routine 09/10/2023 9:23 AM CDT Cholangiocarcinoma (HCC) Peritoneal Carcinomatosis (HCC) Neutropenia Chemotherapy Induced (HCC) Cook [employer]elly Current Drug Therapy, Chemotherapy TROPONIN I, HIGH SENSITIVITY, P Routine 09/10/2023 9:23 AM CDT Cholangiocarcinoma (HCC) Peritoneal Carcinomatosis (HCC) Neutropenia Chemotherapy Induced (HCC) Cook [employer]elly Current Drug Therapy, Chemotherapy LIPASE, S/P Routine 09/10/2023 9:23 AM CDT Cholangiocarcinoma (HCC) Peritoneal Carcinomatosis (HCC) Neutropenia Chemotherapy Induced (HCC) Cook [employer]elly Current Drug Therapy, Chemotherapy AMYLASE, TOT, S Routine 09/10/2023 9:23 AM CDT Cholangiocarcinoma (HCC) Peritoneal Carcinomatosis (HCC) Neutropenia Chemotherapy Induced (HCC) Cook Jelly Current Drug Therapy, Chemotherapy PHOSPHORUS (INORGANIC), S Routine 09/10/2023 9:23 AM CDT Cholangiocarcinoma (HCC) Peritoneal Carcinomatosis (HCC) Neutropenia Chemotherapy Induced (HCC) Cook [employer]elly Current Drug Therapy, Chemotherapy MAGNESIUM, S Routine 09/10/2023 9:23 AM CDT Cholangiocarcinoma (HCC) Peritoneal Carcinomatosis (HCC) Neutropenia Chemotherapy Induced (HCC) Cook [employer]elly Current Drug Therapy, Chemotherapy URIC ACID, S/P Routine 09/10/2023 9:23 AM CDT Cholangiocarcinoma (HCC) Peritoneal Carcinomatosis (HCC) Neutropenia Chemotherapy Induced (HCC) Cook Jelly Current Drug Therapy, Chemotherapy LACTATE DEHYDROGENASE (LD), S Routine 09/10/2023 9:23 AM CDT Cholangiocarcinoma (HCC) Peritoneal Carcinomatosis (HCC) Neutropenia Chemotherapy Induced (HCC) Cook Jelly Current Drug Therapy, Chemotherapy COMPREHENSIVE METABOLIC PANEL, S/P Routine 09/10/2023 9:23 AM CDT Cholangiocarcinoma (HCC) Peritoneal Carcinomatosis (HCC) Neutropenia Chemotherapy Induced (HCC) Correction Current Drug Therapy, Chemotherapy CBC WITH DIFFERENTIAL, B Routine 09/10/2023 9:23 AM CDT Cholangiocarcinoma (HCC) Peritoneal Carcinomatosis (HCC) Neutropenia Chemotherapy Induced (HCC) Cook Jelly Current Drug Therapy, Chemotherapy TROPONIN T, 2H/6H [...] This test has been modified from the time study analyst's instructions. Its performance characteristics were determined by [facility] in a manner consistent with CLIA requirements. This test has not been cleared or approved by the U.S. Food and Drug Administration. Specific [place] 1.014 1.002 - 1.030 11/01/2023 10:13 AM CDT DTL pH, U 5.0 5.0 - 8.0 11/01/2023 10:13 AM CDT DTL Urobilinogen Normal Normal mg/dL 11/01/2023 10:13 AM CDT DTL Leukocyte Esterase Negative Negative 2023 10:13 AM CDT DTL Urine (Urine, Clean Catch) 11/01/2023 9:38 AM CDT 11/01/2023 9:51 AM CDT Na Hernandez M.D., Ph.D. LAB URINE O RDERABLES [facility] [address] [place] [address], [facility] [address] [place] [address] * Microscopic Automated (11/01/2023 9:38 AM CDT) Only the most recent of9 resultswithin the time period is included. Microscopy Normal 11/01/2023 10:13 AM CDT DTL RBC None Seen <3 /hpf 11/01/2023 10:13 AM CDT DTL WBC None Seen /hpf 11/01/2023 10:13 AM CDT DTL Comment: ----REFERENCE VALUE---- <4 ??(Males) <11 (Females) Casts, Hyaline 4-10 /lpf 11/01/2023 10:13 AM CDT DT Urine 11/01/2023 9:38 AM CDT 11/01/2023 9:51 AM CDT Na Hernandez M.D., Ph.D. LAB URINE O RDERABLES Performing Organization Address City/[facility] Co de Phone Number [facility] [address] [place] [address] * Troponin I, High Sensitivity (11/01/2023 9:20 AM CDT) Only the most recent of7 resultswithin the time period is included. TROPONIN I, HIGH SENSITIVITY, P 7 <=20 ng/L 11/01/2023 12:05 PM CDT DT Blood (Blood, Venous) 11/01/2023 9:20 AM CDT 11/01/2023 9:59 AM CDT Na Hernandez M.D., Ph.D. LAB BLOOD N ON ADD-ON Performing Organization Address [facility] de Phone Number [facility] [address] [place] [address] * PSA (Prostate-Specific Antigen) Screen (11/01/2023 9:20 AM CDT) Prostate-Specific Ag 0.49 <=6.5 ng/mL 11/01/2023 10:30 [...] 9:20 AM CDT 11/01/2023 9:56 AM CDT Dolores Rosario APRN, C.N.P., M.S. LAB BLOOD ADD-ON Performing Organization Address [facility] [place] Co de Phone Number [facility] [address] [place] [address], [facility] [address] [place] [address] * (ABNORMAL) NT-Pro B-Type Natriuretic Peptide (BNP) (11/01/2023 9:20 AM CDT) Only the most recent of7 resultswithin the time period is included. Pathologist [facility] [place] NT-Pro BNP 550(H) <=540 pg/mL 11/01/2023 10:30 [...] LAB BLOOD A DD-ON Performing Organization Address [facility] Co de Phone Number [facility] [address] [place] [address], [facility] [place] [address] * (ABNORMAL) CBC with Differential, Blood (11/01/2023 9:20 AM CDT) Only the most recent of15 resultswithin the time period is included. [facility] Hemoglobin 9.8(L) 13.2 - 16.6 g/dL 11/01/2023 [...] - 6.45 x10(9)/L 11/01/2023 9:54 AM CDT PM Lymphocytes 0.71(L) 0.95 - 3.07 x10(9)/L 11/01/2023 9:54 AM CDT DTL Monocytes 0.62 0.26 - 0.81 x10(9)/L 11/01/2023 9:54 AM CDT DTL Eosinophils 0.08 0.03 - 0.48 x10(9)/L 11/01/2023 9:54 AM CDT DTL Basophils <0.03 0.01 - 0.08 x10(9)/L 11/01/2023 9:54 AM CDT DTL Blood (Blood, Venous) 11/01/2023 9:20 AM CDT 11/01/2023 9:45 AM CDT Na Hernandez M.D., Ph.D. LAB BLOOD A DD-ON [facility] [address] [place] [address], [place] DTL [facility] [address] [place] [address] [facility] [address] [place] [address] * Uric Acid (11/01/2023 9:20 AM CDT) Only the most recent of7 resultswithin the time period is included. Uric Acid, S 6.2 3.7 - 8.0 mg/dL 11/01/2023 10:30 AM CDT DTL Blood (Blood, Venous) 11/01/2023 9:20 AM CDT 11/01/2023 9:56 AM CDT Na Hernandez M.D., Ph.D. LAB BLOOD A DD-ON [facility] [address] [place] [address] * Phosphorus Inorganic (11/01/2023 9:20 AM CDT) Only the most recent of7 resultswithin the time period is included. Phosphorus (Inorganic), S 3.2 2.5 - 4.5 mg/dL 11/01/2023 10:30 AM CDT DT Blood (Blood, Venous) 11/01/2023 9:20 AM CDT 11/01/2023 9:56 AM CDT Na Hernandez M.D., Ph.D. LAB BLOOD A DD-ON [facility] [address] [place] [address] * Magnesium (11/01/2023 9:20 AM CDT) Only the most recent of7 resultswithin the time period is included. Magnesium, S 2.0 1.7 - 2.3 mg/dL 11/01/2023 10:30 AM CDT DTL Blood (Blood, Venous) 11/01/2023 9:20 AM CDT 11/01/2023 9:56 AM CDT Na Hernandez M.D., Ph.D. LAB BLOOD A DD-ON [facility] [address] [place] [address] * Lipase (11/01/2023 9:20 AM CDT) Only the most recent of8 resultswithin the time period is included. [facility], S 58 13 - 60 U/L 11/01/2023 10:30 AM CDT DTL Blood (Blood, Venous) 11/01/2023 9:20 AM CDT 11/01/2023 9:56 AM CDT Na Hernandez M.D., Ph.D. LAB BLOOD A DD-ON Performing Organization Address City/[facility]/ZIP Co de Phone Number [facility] [address] 200 [place] [address] * LD (Lactate Dehydrogenase) (11/01/2023 9:20 AM CDT) Only the most recent of7 resultswithin the time period is included. [facility] Sherley LD 191 122 - 222 U/L 11/01/2023 10:20 AM CDT DTL Blood (Blood, Venous) 11/01/2023 9:20 AM CDT 11/01/2023 9:56 AM CDT Na Hernandez M.D., Ph.D. LAB BLOOD N ON ADD-ON Performing Organization Address City/[facility]/ZIP Co de Phone Number [facility] [address] [place] [address] * Amylase, Total (11/01/2023 9:20 AM CDT) Only the most recent of7 resultswithin the time period is included. Amylase, Total, S 47 28 - 100 U/L 11/01/2023 10:30 AM CDT DTL Blood (Blood, Venous) 11/01/2023 9:20 AM CDT 11/01/2023 9:56 AM CDT Na Hernandez M.D., Ph.D. LAB BLOOD A DD-ON [address] [address], [facility] [address] [address] * (ABNORMAL) Comprehensive Metabolic Panel (11/01/2023 9:20 AM CDT) Only the most recent of7 resultswithin the time period is included. Pathologist [facility] [place] Potassium, S 4.7 3.6 - 5.2 mmol/L [...] LAB BLOOD A DD-ON Performing Organization Address City/[facility] [place] [address], [place] [address] * Clostridioides (Clostridium) Difficile Toxin, Molecular Detection, PCR, Feces (10/30/2023 1:31 PM CDT) C. difficile Toxin PCR, F Negative Negative 10/30/2023 7:54 PM CDT RDWG Stool (Stool) 10/30/2023 1:3 1 PM CDT 10/30/2023 7:00 PM CDT Mark Colorado M.D. LAB MICROBIOLOGY - G ENERAL ORDERABLES [facility] [address] [place] [address], [facility] RDWG [facility] [place] [address], [place] [address] * Critical Care (10/24/2023 10:51 AM CDT) [...] M.D. LAB URINE ORDERABLES Performing Organization Address City/[facility]/ZIP Co de Phone Number [facility] [address] [place] [address] * pH, Urine (10/24/2023 9:36 AM CDT) Only the most recent of2 resultswithin the time period is included. pH, U 6.3 4.5 - 8.0 10/24/2023 10: 32 AM CDT DT Urine 10/24/2023 9:36 AM CDT 10/24/2023 9:58 AM CDT Chito Duran M.D. LAB URINE ORDERABLES Performing Organization Address City/[facility]/ZIP Co de Phone Number [facility] [address] [place] [address] * Osmolality, Urine (10/24/2023 9:36 AM CDT) Only the most recent of2 resultswithin the time period is included. Osmolality, U 456 150 - 1150 mOsm/kg 10/24/2023 10:32 AM CDT DT Urine 10/24/2023 9:36 AM CDT 10/24/2023 9:58 AM CDT Chito Duran M.D. LAB URINE ORDERABLES [facility] [address] [place] [address], [facility] [address] [place] [address] * Urinalysis, with Microscopic: Urine, Midstream (10/24/2023 [...] CDT Chito Duran M.D. LAB URINE ORDERABLES [facility] [address] [place] [address], [facility] [address] [place] [address] * (ABNORMAL) Basic Metabolic Panel (10/24/2023 12:34 [...] CDT Odalys Lucio M.D. LAB BLOOD ADD-ON [address] [address], [facility] [address] [address] * GI Pathogen Panel, PCR, Feces (10/23/2023 [...] This assay is performed using the FDA-cleared FilmArray GI Panel ([employer] Stool (Stool) 10/23/2023 2:5 7 PM CDT 10/23/2023 3:36 PM CDT Milla Snyder M.D. LAB MICROBIOLOGY - G ENERAL ORDERABLES [facility] [address] [place] [address], [place] DT 200 [facility] 200 [place] [address] * [place] Fluoro Less Than 1 Hour [...] ETT location: oral VL device: glide scope [place] scope blade size: 4 Tube size: 7.5 [...] CDT Unknown Provider LAB POCT ORDERABLES- MANUAL POC [facility] [address] [place] [address], [place] PCLX [facility] [place] [facility] [address] [place] [address] * ERCP (10/22/2023 12:50 PM CDT) 10/22/2023 [...] bleeding, perforation, and cholangitis. Findings: ? A shift leader film of the abdomen was obtained. Surgical [...] ? No immediate complications. Sedation: ? General displayer Participation: I personally performed the entire procedure. Yariel Castro MD 10/22/2023 2:12:48 PM This report has been signed electronically. Number of Addenda: 0 Hansa Ye M.D., M.S. GI PROCEDU RE ORDERABLES Performing Organization Address City/State/[facility] Co de Phone Number LATIF [employer]OVATION NA * ERCP-Gastroenterology Image Exam [...] System IMG NON RAD IMAGI NG PROCEDURES Performing Organization Address [facility]/ZIP Co de Phone Number IIMS NA * (ABNORMAL) Prothrombin Time (PT) [...] CDT Milla Snyder M.D. LAB BLOOD ADD-ON [facility] [address] [place] [address], [facility] [address] [place] [address] * US Gallbladder and or Biliary Ducts [...] M.S. LAB BLOOD ADD-ON Performing Organization Address [facility] Co de Phone Number [facility] [address] [place] [address], [facility] [address] [place] [address] * (ABNORMAL) Bacteria / Mariam Culture, Blood # 2 (10/22/2023 4:20 AM CDT) Only the most recent of2 resultswithin the time period is included. Pathologist [facility] [place] Bacteria/Cand mary Culture, Blood KLEBSIELLA OXYTOCA/RAOULT JHONNY ORNITHINOLYTIC A/PLANTICOLA Growth after 12 Hours (A) 10/24/2023 1:24 PM CDT DT Comment: 2 of 2 Bottles, Susceptibilities performed on another specimen [id number] Blood (Blood, Peripheral Draw) 10/22/2023 4:20 AM CDT 10/22/2023 5:25 AM CDT Comment:Specimen Source Site : Blood Narrative [facility] - 10/24/2023 1:24 PM CDT Received Bactec aerobic and Bactec anaerobic bottles Hansa Ye M.D., M.S. LAB MICROB IOLOGY - GENERAL ORDERABLES Performing Organization Address [facility] de Phone Number [facility] [address] [place] [address], [facility] [address] [place] [address] * Lactate for Sepsis with Reflex, POCT (10/22/2023 4:14 AM CDT) Pathologist [facility] [place] Lactate, POCT 1.03 0.50 - 2.20 mmol/L 10/22/2023 4:33 AM CDT PCLX Blood (Blood, Venous) 10/22/2023 4:14 AM CDT 10/22/2023 4:14 AM CDT Hansa Ye M.D., M.S. LAB POCT O RDERABLES - DEVICE POC [facility] [address] [place] [address], [place] PCLX [facility] [place] POC [address] [place] [address] * DX Chest AP or PA and [...] M.S. LAB MICROB IOLOGY - GENERAL ORDERABLES [facility] [address] [place] [address], [facility] [address] [place] [address] * SARS Coronavirus 2, PCR Rapid Symptomatic (10/22/2023 3:44 AM CDT) Pathologist [facility] [place] SARS CoV-2, PCR, Rapid, V Undetected Undetected 10/22/2023 4:18 AM CDT [facility] Comment: ----ADDITIONAL INFORMATION---- This RT-PCR test was performed using the [employer] SARS-CoV-2 and Influenza A/B Reagent assay from [employer], which has received Emergency Use Authorization(EUA) by the U.S. Food and Drug Administration. Fact sheets for this Emergency Use Authorization (EUA) assay can be found at the following links: For Healthcare Providers: https://www.fda.gov/media/123643/download For Patients: https://www.fda.gov/media/433061/download SARS Coronavirus 2, Rapid, Source Swab, Nasopharynx 10/22/2023 3:49 AM CDT STMA Swab (Nasopharynx) 10/22/2023 3:44 AM CDT 10/22/2023 3:49 AM CDT Hansa Ye M.D., M.S. LAB MICROB IOLOGY - GENERAL ORDERABLES Performing Organization Address [facility] Co de Phone Number [facility] [address] [place] [address], [facility] STMA [facility] [address] [place] [address] * (ABNORMAL) Dipstick, POCT, Urine (10/22/2023 3:36 AM CDT) Glucose, POCT, U Negative Negative mg/dL 10/22/2023 3:38 AM CDT PCED Ketone, POCT, U Negative Negative mg/dL 10/22/2023 3:38 AM CDT PCED Specific [place], POCT, U 1.010 1.005 - 1.030 10/22/2023 [...] POCT ORDERABLES - DEVICE Performing Organization Address City/[facility]/ZIP Co de Phone Number POC RST [facility] [address] [place] [address], [facility] PCED [facility] [place] [facility] [address] [place] [address] * Bacterial Culture, Aerobic + Susceptibility, Urine (10/22/2023 3:33 AM CDT) Urine Culture Urogenital microbiota, susceptibilities not performed per laboratory criteria. 10/23/2023 8:40 AM CDT DTL Urine (Urine, Midstream) 10/22/2023 3:33 AM CDT 10/22/2023 7:05 AM CDT Comment:Specimen Source Site : Urine Hansa Ye M.D., M.S. LAB MICROB IOLOGY - GENERAL ORDERABLES Performing Organization Address [facility] de Phone Number [facility] [address] [place] [address], [place] DTL [facility] [address] [place] [address] * ECG 12 Lead (10/22/2023 3:22 AM CDT) Only the most recent of2 resultswithin the time period is included. Ventricular Rate ECG/Min 117 BPM MUSE DC Interval 168 ms MUSE QRSD Interval 84 ms MUSE QT Interval 290 ms MUSE QTC Interval 404 ms MUSE P [place] 68 degrees MUSE R [place] 48 degrees MUSE T Wave [place] 48 degrees MUSE 10/22/2023 3:22 AM CDT [...] Donna Prince M.D., M.P.H. ECG ORDERAB LES Performing Organization Address [facility] Co de Phone Number MUSE NA * Urinalysis with Microscopic if [...] 8.0 10/21/2023 10:00 PM CDT CNFL Specific [place] <=1.005 1.001 - 1.035 10/21/2023 10:00 PM CDT CNFL Urobilinogen 0.2 0.2 - 1.0 mg/dL 10/21/2023 10:00 PM CDT CNFL Urine (Urine, Midstream) 10/21/2023 9:50 PM CDT 10/21/2023 9:57 PM CDT Sara Mancia APRNNHoldenP., D.N.P., M.S.N . LAB URINE ORDERABLES Performing Organization Address City/State/[facility] Co de Phone Number [facility] [address] [place] [address], [facility] CNFL [facility] in [address] [address] * CT Abdomen Pelvis with IV Contrast [...] Trace bilateral pleural effusions have increased slightly. Sara Mancia APRNNJose, Flaco.N.P., M.S.N . IMG CT PROCEDURES * Lactate (10/21/2023 7:59 PM CDT) Lactate, P 0.7 0.5 - 2.2 mmol/L 10/21/2023 8:18 PM CDT [facility] Blood (Blood, Venous) 10/21/2023 7:59 PM CDT 10/21/2023 8:01 PM CDT Tresa Patino APRN, C.N.P., Flaco.N.P., M.S.N . LAB BLOOD NON ADD-ON [facility] [address] [place] [address], [facility] in [address] [address] * APTT (Activated Partial Thromboplastin Time) (10/08/2023 7:59 AM CDT) Only the most recent of4 resultswithin the time period is included. Activated Partial Thrombopl Time, P 33 25 - 37 sec 10/08/2023 8:44 AM CDT DTL Blood (Blood, Venous) 10/08/2023 7:59 AM CDT 10/08/2023 8:16 AM CDT Na Hernandez M.D., Ph.D. LAB BLOOD A DD-ON [facility] [address] [place] [address], [facility] [address] [place] [address] * CT Chest with IV Contrast (10/01/2023 [...] gynecomastia. Procedure Note Arabella Bermudez M.D. - 07/02/2024 EXAM: CT CHEST WITH IV CONTRAST COMPARISON: [...] thoracic lymph nodes. Na Hernandez M.D., Ph.D. [facility] CT PROC EDURES * (ABNORMAL) Carbohydrate Antigen 19-9 (CA 19-9) (09/24/2023 7:19 AM CDT) Carbohydrate Ag 19-9, S 132(H) <35 U/mL 10/01/2023 6:00 PM CDT [facility] Comment: ----ADDITIONAL INFORMATION---- The testing method is an immunoenzymatic assay manufactured by [employer] and performed on the [employer] DxI 800. ? Values obtained with different assay methods or kits may be different and cannot be used interchangeably. ? Test results cannot be interpreted as absolute evidence for the presence or absence of malignant disease. Blood (Blood, Venous) 09/24/2023 7:19 AM CDT 10/01/2023 4:59 PM CDT Na Hernandez M.D., Ph.D. LAB BLOOD A DD-ON [facility] [address] [place] [address] [facility] [place] [address] [place] [address] * (TTE) 2D ECHO DOPPLER COLOR (09/10/2023 [...] mitral valve regurgitation (two eccentric jets). Possibly wdby-ug-eqmeghaf. 5. No ??pericardial effusion. 6. Compared to [...] Mild mitral valve regurgitation (two eccentric jets). Ebisvmyxnhdg-mg-jokdiplr. 5. No pericardial effusion. 6. Compared to [...] 09/03/2023 5:30 AM CDT Erin Maldonado P.A.-C., Gurinder, M.S. LAB BLO OD TROPONIN [facility] [address] [place] [address], [facility] CNFL [facility] in [address] [address] * CT Chest Angiogram and Pulmonary Arteries [...] cm AP (previously 13.9cm). Erin Maldonado P.A.-C., P.A., M.S. IMG CT PROCEDURES * CT Head Neck Angiogram with IV Contrast (09/03/2023 4:18 AM CDT) Anatomical Region Laterality Modality Head and Neck, Neuroradiolog y RST LOS, Neuroradiology LOLA MCCARTHY, Neuroradiology GORDON MCCARTHY N/A Computed Tomography Impressions 09/03/2023 4:51 AM [...] fenestration of the proximal basilar artery. PROXIMAL c++ professor: ??Patent. POSTERIOR COMM. ARTERIES: Patent on the [...] normal distal ICA in accordance with [place] Symptomatic Carotid Endarterectomy Trial (NASCET). Procedure Note [...] fenestration of the proximal basilar artery. PROXIMAL c++ professor: Patent. POSTERIOR COMM. ARTERIES: Patent on the right and not well-visualized theleft. OTHER: None. NECK: SUPRAHYOID NECK: Unremarkable. INFRAHYOID NECK: Unremarkable. SALIVARY GLANDS: Unremarkable. THYROID: Unremarkable. LYMPH NODES: No pathologic appearing lymphadenopathy. VISUALIZED THORAX: Unremarkable. CERVICAL SPINE: Central posterior disc osteophyte complex at [id number] in probable moderate spinal canal stenosis. Posterolateral [...] significant stenosis within the neck. Erin Maldonado P.A.-C., P.A., M.S. IMG CT PROCEDURES * (ABNORMAL) [...] P.A.-C., P.A., M.S. LAB BLO OD ADD-ON [facility] [address] [place] [address], [facility] CNFL [facility] in [address] [address] * Troponin T, Baseline, 5th gen (09/03/2023 3:21 AM CDT) Troponin T, Baseline, 5th gen 9 <=15 ng/L 09/03/2023 3:46 AM CDT CNFL Blood (Blood, Venous) 09/03/2023 3:21 AM CDT 09/03/2023 3:24 AM CDT Erin Maldonado P.A.-C., P.A., M.S. LAB BLO OD TROPONIN Performing Organization Address [facility] Co de Phone Number [facility] [address] [place] [address], [place] [address] * (ABNORMAL) Manual Differential, Blood (09/03/2023 3:21 [...] LAB BLO OD ADD-ON Performing Organization Address City/[facility]/ZIP Co de Phone Number [facility] [address] [place] [address], [place] [address] * (ABNORMAL) Lipid Panel (01/25/2023 8:49 AM [...] CDT Rosalie Ott LAB BLOOD ADD- ON [facility] [address] [place] [address], [facility] CNFL [facility] in [address] [address] from Last 3 Months or Most Recently Relevant to Health Maintenance Additional Health Concerns Infection Onset Date Last Indicated Protective Environment 11/07/2022 Advance Directives For more information, please contact: [phone] Documents on File Type Date Recorded Patient Power Driven Brush Maker Expl anation Advance Directives 10/16/2022 3:06 PM [...] Name Relationship Healthcare Agent Relationship Communication Wilfredo Sepulveda Spouse Health Care Agent [email or web address] Justino Sepulveda Child First Alternate Health Care Agent [email or web address] Charito Caldwell Child First Alternate Health Care Agent Care Teams Life Enrichment Specialist Relationship Specialty Start Date End Date Mark [place] M.D. LOUISAI: [phone] [id number] [place] [address] PCP - General Family Medicine 11/09/22
--- OUTSIDE RECORDS SUMMARY | 2023-11-05 22:04 | XMS_ITS | Encounter Summary ---
Author Organization [facility] Address [address] [place] [address] Care Team Providers Care Cigar Patcher Name Role Phone Mark Colorado M.D. Primary Care Provider [phone] Reason for Referral * Outpatient (Routine) - Closed Specialty Diagnoses / Procedures Referred By Chloe [place] Referred To Contact Diagnoses Dysuria Procedures US Urinary Bladder Dolores Rosario APRN C.N.P., M.S. [address] [place] [address] [facility] Referral ID Status Reason Start Date Expiration Date Visits Re quested Visits Authorized [id number] Closed 10/30/2023 10/29/2024 1 1 Reason for Visit * Outpatient (Routine) - Closed Specialty Diagnoses / Procedures Referred By Chloe h[place] Referred To Contact Diagnoses Dysuria Procedures US Urinary Bladder Dolores Rosario APRN, C.N.P., M.S. [address] [place] [address] [facility] Referral ID Status Reason Start Date Expiration Date Visits Re quested Visits Authorized [id number] Closed 10/30/2023 10/29/2024 1 1 Encounter Details Date Type Department Care Team (Latest Contact Info) Description 11/01/2023 11:27 AM CDT - 11/01/2023 11:59 PM CDT Hospital Encounter Department of Radiology, [facility], in [place], [place] [address] [place] [address] Dolores Rosario APRN, C.N.P., M.S. [address] [place] [phone] Dysuria Discharge Disposition: Home or Self Care Social History Tobacco Use Types Packs/Day Years Used Date Smoking Tobacco: Never Passive Smoke Exposure: Never Smokeless Tobacco: Never Alcohol Use Standard Drinks/Week Comments Not Currently 0 (1 standard drink = 0.6 oz pur e alcohol) occ [facility] Utilities Answer Date Recorded In the past 12 months has [facility] [employer], gas, oil, or water [employer] threatened to shut off services in your [...] your living situation today? I have a [facility] place to live 10/22/2023 Sex and Gender Information Value Date Recorded Sex Assigned at Male 09/10/2022 12:02 PM CDT Gender Identity Male 09/10/2022 12:02 PM CDT Sexual Orientation Straight 09/10/2022 12 :02 PM CDT documented as of this encounter Medications at Time of Discharge Medication Sig Dispensed Refills Start Date End Date amLODIPine (Norvasc) 10 mg tablet Take 1 tablet (10 mg total) by mouth daily. 90 tablet 1 10/08/2023 02/05/2024 bisacodyL (DULCOLAX) 10 mg suppositoryIndication s:Constipation Slow Transit Insert 1 suppository (10 mg total) into the rectum daily as needed for constipation. 30 suppository 09/12/2022 cholecalciferol (VITAMIN D3) 125 mcg (5,000 Unit) capsule Take 125 mcg by mouth daily. coenzyme Q10 (CO Q-10) 10 mg capsule Take 10 mg by mouth daily. 12/01/2020 cyanocobalamin (VITAMIN B12) 1,000 mcg tablet Take 1,000 mcg by mouth every other day. 12/05/2021 dexAMETHasone (DECADRON) 4 mg tablet Take 1 tablet (4 mg total) by mouth daily. 3 tablet 08/30/2023 docusate sodium (Colace) 100 mg capsule Take 200 mg by mouth daily. fluticasone propionate (Flonase) 50 mcg/actuation nasal spray Administer 2 sprays into each nostril daily. Daily prn 10/24/2023 glucosamine bnx-edmqeniimp-vjh 500-200-150 mg tablet Take 1 tablet by mouth daily. 12/05/2021 HYDROmorphone (Dilaudid) 2 mg tabletIndications:Chr onic Pain/Nonacute Pain Take 1 tablet (2 mg total) by mouth every 4 (four) hours as needed for pain Indication: Chronic Pain/Nonacute Pain. 42 tablet 10/16/2023 lisinopriL 20 mg tablet Take 20 mg by mouth daily. magnesium chloride (SLOW-MAG) 71.[address] tablet Take 1 tablet (71.5 mg total) by mouth as directed. Take 2 tabs in the morning and 1 tab in the evening. Do not crush or chew. 01/17/2023 ondansetron ODT (Zofran-ODT) 8 mg disintegrating tablet Dissolve 1 tablet (8 mg total) in the mouth every 8 (eight) hours as needed for nausea or vomiting. 20 tablet 3 10/16/2023 polyethylene glycol (MIRALAX) 17 gram/dose oral powder Take 17 g by mouth at bedtime. Dissolve each 17 g dose in 240 mL (8 ounces) of beverage. 10/23/2022 sennosides (senna) 8.6 mg tabletIndications:Con stipation Slow Transit Take 1 tablet (8.6 mg total) by mouth 2 (two) times a day. 90 tablet 2 03/03/2023 tamsulosin (FLOMAX) 0.4 mg 24 hr capsule Take 1 capsule (0.4 mg total) by mouth daily. 90 capsule 3 02/14/2023 prochlorperazine (COMPAZINE) 10 mg tabletIndications:Cho langiocarcinoma (HCC),S[employer] Current Drug Therapy, Chemotherapy Take 1 tablet (10 mg total) by mouth every 6 (six) hours as needed for nausea or vomiting (unrelieved by ondansetron). 30 tablet 3 11/02/2022 11/02/2023 documented as of this encounter Plan of Treatment Upcoming Encounters Date Type Department Care Team (Latest Contact Info) Description 11/07/2023 3:15 PM CDT Clinical Communication Virtual Review in [address] [phone] 11/15/2023 6:40 AM CDT Lab Department of Laboratory Medicine and Pathology, [facility] in [address] [phone] Loyda Lennon M.D. [address] [place] [phone] 11/15/2023 8:20 AM CDT Office Visit Department of Oncology in [address] [address] Manjit Velasquez APRN, C.N.P., D.N.P. [address] [place] [phone] 11/15/2023 9:30 AM CDT Comprehensive Visit Department of Palliative Care in [address] [phone] Patty Gomez APRN, C.N.P., M.S.N. [address] [place] [phone] 11/15/2023 2:15 PM CDT Infusion Department of Oncology in [place], [place] [address] [place] [phone] Loyda Lennon M.D. [address] [place] [phone] 11/22/2023 7:30 AM CDT Lab Department of Oncology in [place], [place] [address] [place] [phone] Loyda Lennon M.D. [address] [place] [phone] 11/22/2023 8:45 AM CDT Infusion Department of Oncology in [place], [place] [address] [place] [phone] Loyda Lennon M.D. [address] [place] [phone] 11/28/2023 3:30 PM CDT Clinical Communication Virtual Review in [place], [place] 200 [place] [address] 11/29/2023 9:00 AM CDT Procedure visit Department of Urology in [place], [place] [address] [place] [phone] Mark Colorado M.D. [address] [place] [phone] 11/29/2023 11:20 AM CDT Lab Department of Laboratory Medicine and Pathology, [facility], in [place], [place] [address] [place] [phone] Loyda Lennon M.D. [address] [place] [phone] 11/29/2023 11:30 AM CDT Lab Department of Oncology in [place], [place] [address] [place] [phone] Loyda Lennon M.D. [address] [place] [phone] 11/29/2023 1:00 PM CDT Infusion Department of Oncology in [place], [place] [address] [place] [phone] Loyda Lennon M.D. [address] [place] [phone] 12/03/2023 1:45 PM CDT Comprehensive Visit Department of Urology in [place], [place] [address] [place] [phone] Mona Egan P.A.-C. [address] [place] [phone] 12/05/2023 1:20 PM CDT Comprehensive Visit Department of Oncology in [place], [place] [address] [place] [phone] Letty Kate M.D. [address] [place] [phone] 12/10/2023 3:00 PM CDT Clinical Communication Virtual Review in [place], [place] 200 [place] [address] 12/10/2023 3:30 PM CDT Procedure visit Department of Urology in [place], [place] [address] [place] [phone] Mark Colorado M.D. [address] [place] [address] 12/12/2023 3:45 PM CDT Appointment Department of Radiology, [facility], in [place], [place] [address] [place] [phone] Na Hernandez M.D., Ph.D. [address] [place] [phone] 12/13/2023 6:00 AM CDT Lab Department of Laboratory Medicine and Pathology, [facility], in [place], [place] [address] [place] [phone] Loyda Lennon M.D. [address] [place] [phone] 12/13/2023 6:20 AM CDT Lab Department of Infusion Therapy in [place], [place] [address] [place] [phone] Loyda Lennon M.D. [address] [place] [phone] 12/13/2023 11:10 AM CDT Office Visit Department of Oncology in [place], [place] [address] [place] [phone] Na Hernandez M.D., Ph.D. [address] [place] [phone] 12/13/2023 1:00 PM CDT Infusion Department of Oncology in [place], [place] [address] [place] [phone] Loyda Lennon M.D. [address] [place] [phone] 12/20/2023 9:20 AM CDT Lab Department of Infusion Therapy in [place], [place] [address] [place] [phone] Loyda Lennon M.D. [address] [place] [phone] 12/20/2023 10:30 AM CDT Infusion Department of Oncology in [place], [place] [address] [place] [phone] Loyda Lennon M.D. [address] [place] [phone] 12/25/2023 10:30 AM CDT Appointment Division of Gastroenterology in [place], [place] [address] [place] [phone] Na Hernandez M.D., Ph.D. [address] [place] [phone] 12/27/2023 10:15 AM CDT Lab Department of Oncology in [place], [place] [address] [place] [phone] Loyda Lennon M.D. [address] [place] [phone] 12/27/2023 10:30 AM CDT Lab Department of Laboratory Medicine and Pathology, [facility] in [place], [place] [address] [place] [phone] Loyda Lennon M.D. [address] [place] [phone] 12/27/2023 11:45 AM CDT Infusion Department of Oncology in [address] [phone] Loyda Lennon M.D. [address] [place] [phone] 01/03/2024 1:00 PM CDT Clinical Communication Virtual Review in [place], [place] 200 [place] [address] 01/10/2024 8:00 AM CDT Lab Department of Infusion Therapy in [address] [phone] Loyda Lennon M.D. [address] [place] [phone] 01/10/2024 8:20 AM CDT Lab Department of Laboratory Medicine and Pathology, [facility], in [place], [place] [address] [place] [phone] Loyda Lennon M.D. [address] [place] [phone] 01/10/2024 10:30 AM CDT Office Visit Department of Oncology in [place], [place] [address] [place] [phone] Na Hernandez M.D., Ph.D. [address] [place] [phone] 01/10/2024 11:45 AM CDT Infusion Department of Oncology in [place], [place] [address] [place] [address] Loyda Lennon M.D. [address] [place] [phone] 01/17/2024 8:45 AM CDT Lab Department of Oncology in [place], [place] [address] [place] [address] Loyda Lennon M.D. [address] [place] [phone] 01/17/2024 10:00 AM CDT Infusion Department of Oncology in [place], [place] [address] [place] [phone] Loyda Lennon M.D. [address] [place] [phone] 01/24/2024 8:00 AM CDT Lab Department of Laboratory Medicine and Pathology, [facility], in [place], [place] [address] [place] [address] Loyda Lennon M.D. [address] [place] [address] 01/24/2024 8:15 AM CDT Lab Department of Oncology in [place], [place] [address] [place] [address] Loyda Lennon M.D. [address] [place] [phone] 01/24/2024 9:15 AM CDT Infusion Department of Oncology in [place], [place] [address] [place] [address] Loyda Lennon M.D. [address] [place] [phone] Scheduled Procedures Name Priority Associated Diagnoses Date/Ti me HEPATECTOMY RESECTION LIVER Cholangiocarcinoma (HCC) ULTRASOUND LIVER Cholangiocarcinoma (HCC) RECONSTRUCTION PORTAL VEIN Cholangiocarcinoma (HCC) documented as of this encounter Procedures Procedure Name Priority Date/Time Associated Diagnosis Comments US URINARY BLADDER RAD - Routine (most inpatients and all outpatients) 11/01/2023 11:58 AM CDT Dysuria documented in this encounter Results * US Urinary Bladder (11/01/2023 11:58 [...] residual Dolores Rosario APRN, C.N.P., M.S. IMG PROCEDURES documented in this encounter Visit Diagnoses Diagnosis Dysuria documented in this encounter Additional Health Concerns Infection Onset Date Last Indicated Resolved Time Protective Environment 11/07/2022 11/07/2022 documented as of this encounter Care Teams Cigar Patcher Relationship Specialty Start Date End Date Mark Colorado M.D. [address] [place] [phone] PCP - General Family Medicine 11/09/22 documented as of this encounter
--- OUTSIDE RECORDS SUMMARY | 2023-11-05 22:04 | XMS_ITS | Encounter Summary ---
Author Organization [facility] Address [address] [place] [address] Care Team Providers Care Senior Abap Developer Name Role Phone Mark Colorado M.D. Primary Care Provider [phone] Reason for Referral * Outpatient (Routine) - Closed Specialty Diagnoses / Procedures Referred By Chloe [place] Referred To Contact Diagnoses Dysuria Procedures US Urinary Bladder Dolores Rosario APRN C.N.P., M.S. [address] [place] [address] [facility] Referral ID Status Reason Start Date Expiration Date Visits Re quested Visits Authorized [id number] Closed 10/30/2023 10/29/2024 1 1 Encounter Details Date Type Department Care Team (Late st Contact Info) Description 10/30/2023 Orders Only Department of Oncology in [place], [place] [address] [place] [address] Dolores Rosario APRN C.N.P., M.S. [address] [place] [address] Dysuria (Primary Dx) Social History Tobacco Use Types Packs/Day Years Used Date Smoking Tobacco: Never Passive Smoke Exposure: Never Smokeless Tobacco: Never Alcohol Use Standard Drinks/Week Comments Not Currently 0 (1 standard drink = 0.6 oz pur e alcohol) occ [facility] Utilities Answer Date Recorded In the past 12 months has [employer], gas, oil, or water [employer] threatened to shut off services in your [...] your living situation today? I have a [facility] place to live 10/22/2023 Sex and Gender Information Value Date Recorded Sex Assigned at Male 09/10/2022 12:02 PM CDT Gender Identity Male 09/10/2022 12:02 PM CDT Sexual Orientation Straight 09/10/2022 12 :02 PM CDT documented as of this encounter Plan of Treatment Upcoming Encounters Date Type Department Care Team (Latest Contact Info) Description 11/07/2023 3:15 PM CDT Clinical Communication Virtual Review in [place], [place] 200 [place] [address] 11/15/2023 6:40 AM CDT Lab Department of Laboratory Medicine and Pathology, [facility], in [place], [place] [address] [place] [phone] Loyda Lennon M.D. [address] [place] [phone] 11/15/2023 8:20 AM CDT Office Visit Department of Oncology in [place], [place] [address] [place] [phone] Manjit Velasquez APRN, C.N.P., D.N.P. [address] [place] [phone] 11/15/2023 9:30 AM CDT Comprehensive Visit Department of Palliative Care in [place], [place] [address] [place] [phone] Patty Gomez APRN C.N.P., M.S.N. [address] [place] [phone] 11/15/2023 2:15 PM CDT Infusion Department of Oncology in [place], [place] [address] [place] [phone] Loyda Lennon M.D. [address] [place] [phone] 11/22/2023 7:30 AM CDT Lab Department of Oncology in [place], [place] [address] [place] [phone] Loyda Lennon M.D. [address] [place] [phone] 11/22/2023 8:45 AM CDT Infusion Department of Oncology in [address] [phone] Loyda Lennon M.D. [address] [place] [phone] 11/28/2023 3:30 PM CDT Clinical Communication Virtual Review in [place], [place] 200 [place] [address] 11/29/2023 9:00 AM CDT Procedure visit Department of Urology in [place], [place] [address] [place] [phone] Mark Colorado M.D. [facility] [place] [address] 11/29/2023 11:20 AM CDT Lab Department of Laboratory Medicine and Pathology, [facility], in [address] [phone] Loyda Lennon M.D. [address] [place] [phone] 11/29/2023 11:30 AM CDT Lab Department of Oncology in [place], [place] [address] [place] [phone] Loyda Lennon M.D. [address] [place] [phone] 11/29/2023 1:00 PM CDT Infusion Department of Oncology in [place], [place] [address] [place] [phone] Loyda Lennon M.D. [address] [place] [phone] 12/03/2023 1:45 PM CDT Comprehensive Visit Department of Urology in [address] [phone] Mona Egan, Shanda [address] [place] [phone] 12/05/2023 1:20 PM CDT Comprehensive Visit Department of Oncology in [address] [address] Letty Kate M.D. [address] [place] [phone] 12/10/2023 3:00 PM CDT Clinical Communication Virtual Review in [place], [place] [address] [place] [address] 12/10/2023 3:30 PM CDT Procedure visit Department of Urology in [place], [place] [address] [place] [phone] Mark Colorado M.D. [address] [place] [address] 12/12/2023 3:45 PM CDT Appointment Department of Radiology, [facility], in [place], [place] [address] [place] [address] Na Hernandez M.D., Ph.D. [address] [place] [phone] 12/13/2023 6:00 AM CDT Lab Department of Laboratory Medicine and Pathology, [facility] in [place], [place] [address] [place] [address] Loyda Lennon M.D. [address] [place] [phone] 12/13/2023 6:20 AM CDT Lab Department of Infusion Therapy in [place], [place] [address] [place] [phone] Loyda Lennon M.D. [address] [place] [phone] 12/13/2023 11:10 AM CDT Office Visit Department of Oncology in [place], [place] [address] [place] [phone] Na Hernandez M.D., Ph.D. [address] [place] [phone] 12/13/2023 1:00 PM CDT Infusion Department of Oncology in [place], [place] [address] [place] [phone] Loyda Lennon M.D. [address] [place] [phone] 12/20/2023 9:20 AM CDT Lab Department of Infusion Therapy in [place], [place] [address] [place] [phone] Loyda Lennon M.D. [address] [place] [phone] 12/20/2023 10:30 AM CDT Infusion Department of Oncology in [place], [place] [address] [place] [phone] Loyda Lennon M.D. [address] [place] [phone] 12/25/2023 10:30 AM CDT Appointment Division of Gastroenterology in [place], [place] [address] [place] [phone] Na Hernandez M.D., Ph.D. [address] [place] [phone] 12/27/2023 10:15 AM CDT Lab Department of Oncology in [place], [place] [address] [place] [phone] Loyda Lennon M.D. [address] [place] [phone] 12/27/2023 10:30 AM CDT Lab Department of Laboratory Medicine and Pathology, [facility], in [place], [place] [address] [place] [phone] Loyda Lennon M.D. [address] [place] [phone] 12/27/2023 11:45 AM CDT Infusion Department of Oncology in [place], [place] [address] [place] [phone] Loyda Lennon M.D. [address] [place] [phone] 01/03/2024 1:00 PM CDT Clinical Communication Virtual Review in [place], [place] [address] [place] [address] 01/10/2024 8:00 AM CDT Lab Department of Infusion Therapy in [place], [place] [address] [place] [phone] Loyda Lennon M.D. [address] [place] [phone] 01/10/2024 8:20 AM CDT Lab Department of Laboratory Medicine and Pathology, [facility] in [address] [phone] Loyda Lennon M.D. [address] [place] [phone] 01/10/2024 10:30 AM CDT Office Visit Department of Oncology in [address] [phone] Na Hernandez M.D., Ph.D. [address] [place] [phone] 01/10/2024 11:45 AM CDT Infusion Department of Oncology in [address] [address] Loyda Lennon M.D. [address] [place] [phone] 01/17/2024 8:45 AM CDT Lab Department of Oncology in [address] [address] Loyda Lennon M.D. [address] [place] [phone] 01/17/2024 10:00 AM CDT Infusion Department of Oncology in [place], [place] [address] [place] [phone] Loyda Lennon M.D. [address] [place] [phone] 01/24/2024 8:00 AM CDT Lab Department of Laboratory Medicine and Pathology, [facility] in [place], [place] [address] [place] [phone] Loyda Lennon M.D. [address] [place] [phone] 01/24/2024 8:15 AM CDT Lab Department of Oncology in [place], [place] [address] [place] [phone] Loyda Lennon M.D. [address] [place] [phone] 01/24/2024 9:15 AM CDT Infusion Department of Oncology in [place], [place] [address] [place] [phone] Loyda Lennon M.D. [address] [place] [phone] Scheduled Procedures Name Priority Associated Diagnoses Date/Ti ut HEPATECTOMY RESECTION LIVER Cholangiocarcinoma (HCC) ULTRASOUND LIVER Cholangiocarcinoma (HCC) RECONSTRUCTION PORTAL VEIN Cholangiocarcinoma (HCC) documented as of this encounter Results * US Urinary Bladder [...] Rosario APRN, C.N.P., M.S. IMG US PROCEDURES documented in this encounter Visit Diagnoses Diagnosis Dysuria- Primary Dysuria documented in this encounter Additional Health Concerns Infection Onset Date Last Indicated Resolved Time Protective Environment 11/07/2022 11/07/2022 documented as of this encounter Care Teams Senior Abap Developer Relationship Specialty Start Date End Date Mark Colorado M.D. [address] [place] [address] PCP - General Family Medicine 11/09/22 documented as of this encounter
--- OUTSIDE RECORDS SUMMARY | 2023-11-05 22:04 | XMS_ITS ---
Author Organization [facility] Address [address] [place] [address] Care Team Providers Care Surveillance Observer Name Role Phone Mark [place] M.D. Primary Care Provider [phone] Active Problems Problem Noted Date Diagnosed Date [...] Anemia Drug Induced 11/22/2022 Weakness General 11/22/2022 Long-Term Current Drug Therapy, Chemotherapy Cholangiocarcinoma 10/15/2022 Cancer Staging:Clinical stage from 10/12/2022:Stage IB(cT1b, cN0, cM0) - Signed by Na Hernandez M.D., Ph.D. on 12/21/2022 Pathologic stage from 01/09/2023:Stage IV(pM1) - Signed by Na Hernandez M.D., Ph.D. on 01/16/2023 Pure Hypercholesterolemia 11/17/20182022 Current Oncology Plans Epoetin Esteban (RETACRIT, EPOGEN, PROCRIT)* Plan Start Date:01/07/2023 Plan Provider:Janeen Chau APRN, C.N.P., D.N.P. Linked Problems Anemia Chemotherapy InducedC holangiocarcinoma (HCC) Treatment Medications No medications scheduled. [facility] CTX-009-002 ( CTX-009 / PACLitaxel )* Plan Start Date:06/17/2023 Plan Provider:Yuko Pennington MPAS, P.A.-C. Linked Problems Cholangiocarcinoma (HCC)Applications Instructor Current Drug Therapy, ChemotherapyPeritoneal Carcinomatosis (HCC)Neutropenia Chemotherapy Induced (HCC) Treatment Medications Current Day (Day 1 , Cycle 6 - Planned for 11/15/2023) Next Day (Day 8, Cycle 6 - Planned for 11/22/2023) PACLitaxel (TaxoL)PACLItaxeL (TaxoL) IVPB in 250 mL (TaxoL)[facility] [id number] [facility]009[facility] [id number] CTX-009 IVPB PACLitaxeL 126 mg in NaCl 0.9% (non-PVC/non-DEHP) 271 mL IVPB (TAXOL)[facility] IRB [id number] CTX-009 900 mg in NaCl 0.9% (non-PVC/non-DEHP) 250 mL IVPB PACLitaxeL 126 mg in NaCl 0.9% (non-PVC/non-DEHP) 271 mL IVPB (TAXOL) Vascular Access Patency - Implanted Vascular Access Device (IVAD) Venous Non-Valved* Plan Start Date:06/25/2023 Linked Problems Cholangiocarcinoma (HCC)Pure Hypercholesterolemia Treatment Medications No medications scheduled. Past Plans Flushes/Hydration Plan Name Start Date Discontinue Date Treatment Medications Discontinue Reason Plan Provider Vascular Access Patency - Implanted Vascular Access Device (IVAD) Venous Non-Valved 10/26/2022 06/23/2023 No medications scheduled. Amendment Change - Hematology / Oncology Treatment 1 Plan Name Start Date Discontinue Date Treatment Medications Discontinue Reason Plan Provider Cycles [facility] CTX-009-002 ( PACLitaxel ) 05/15/19 24 06/17/2023 PACLitaxel (TaxoL)PACLItaxeL (TaxoL) IVPB in 250 mL (TaxoL) Unlisted Yuko Pennington MPAS, P.A.-C. 3 of 6 cycles completed [facility] CTX-009-002 ( CTX-009 / PACLitaxel ) 05/17/19 24 05/15/2023 PACLitaxel (TaxoL)[facility] IRB [id number] CTX-009 Unlisted Na Hernandez M.D., Ph.D. Treatment not started [facility] CTX-009-002 ( PACLitaxel ) 023 05/14/2023 PACLitaxel (TaxoL)PACLItaxeL (TaxoL) IVPB in 250 mL (TaxoL) Progression Lee Woods M.D., M.P.H. 2 of 5 cycles started [facility] CTX-009-002 ( CTX-009 / PACLitaxel ) 023 03/13/2023 PACLitaxel (TaxoL)[facility] IRB [id number] CTX-009 Unlisted Na Hernandez M.D., Ph.D. Treatment not started Durvalumab / CISplatin / Gemcitabine 3 03/06/2023 CISplatin (PlatinoL)CISplat in (PlatinoL) IVPB in 1000 mL (PlatinoL)CISplat in (PlatinoL) IVPB in 500 mL (PlatinoL)durvalu mab (Imfinzi)durvalum ab (Imfinzi) IVPBgemcitabine (Gemzar)gemcitabi ne (Gemzar) IVPB (Gemzar) Progression Na Hernandez M.D., Ph.D. 6 of 8 cycles started Durvalumab / CISplatin / Gemcitabine 3 10/26/2022 CISplatin (PlatinoL)durvalu mab (Imfinzi)gemcitab ine (Gemzar) Unlisted Na Hernandez M.D., Ph.D. Treatment not started Radiation Treatments * No radiation treatments are documented for this patient in [facility]. Treatments may have been administered in another system. Lifetime Dose Tracking * Chemical Lifetime Dose Automatic Entry Manual Entr y Radiation 930.42 mGy 930.42 mGy 0 mGy Fluoro Time 76.7 minutes 76.7 minutes 0 minutes DAP (uGy-m2) 125.77 uGy-m2 125.77 uGy-m2 0 uGy-m2
--- OUTSIDE RECORDS SUMMARY | 2023-11-05 22:04 | XMS_ITS | Encounter Summary ---
Author Organization [facility] Address [address] [place] [address] Care Team Providers Care Picking Machine Operator Helper Name Role Phone Mark Colorado M.D. Primary Care Provider [phone] Reason for Visit * Outpatient (Routine) - Closed Specialty Diagnoses / Procedures Referred By Contreema t Referred To Contact Oncology Diagnoses Cholangiocarcinoma (HCC) Dolores Rosario APRN, C.N.P., M.S. [address] [place] [address] [facility] Referral ID Status Reason Start Date Expiration Date Visits Re quested Visits Authorized [id number] Closed 10/29/2023 04/29/2025 1 1 Encounter Details Date Type Department Care Team (Latest Contact Info) Description 11/01/2023 10:40 AM CDT Office Visit Department of Oncology in [place], [place] [address] [place] [address] Dolores Rosario, KAYLEE, C.N.P., M.S. [address] [place] [address] Retail Product Demo Specialist Current Drug Therapy, Chemotherapy (Primary Dx); Cholangiocarcinoma (HCC); Peritoneal Carcinomatosis (HCC); Neutropenia Chemotherapy Induced (HCC) Social History Tobacco Use Types Packs/Day Years Used Date Smoking Tobacco: Never Passive Smoke Exposure: Never Smokeless Tobacco: Never Alcohol Use Standard Drinks/Week Comments Not Currently 0 (1 standard drink = 0.6 oz pur e alcohol) occ [facility] Utilities Answer Date Recorded In the past 12 months has e [employer], gas, oil, or water [employer] threatened to shut off services in your [...] your living situation today? I have a [facility] place to live 10/22/2023 Sex and [...] ??F) 11/01/2023 10:31 AM CDT Respiratory Rate - - Oxygen Saturation 98% 11/01/2023 10:31 AM CDT Inhaled Oxygen Concentration - - Weight 87.2 kg (192 lb 3.9 oz) 11/01/2023 10:31 AM CDT Height 182.6 cm (5' 11.89) 11/01/2023 10:31 AM CDT Body Mass Index 26.15 11/01/2023 10:31 AM CDT documented in this encounter Progress Notes * Dolores Rosario, KAYLEE, C.N.P., M.S. - 11/01/2023 10:40 AM CDT SUBJECTIVE PRIMARY CARE PHYSICIAN Mark Colorado M.D. LOCAL ONCOLOGIST No care meat service team member to display PRIMARY ETHEL ONCOLOGIST Na Hernandez M.D., Ph.D. CHIEF COMPLAINT / REASON FOR VISIT Jorge Luis Sepulveda is a 68 y.o. male who presents for evaluation while being treated on a clinical trial for diagnosis of cholangiocarcinoma. Cancer Staging Cholangiocarcinoma (HCC) Staging form: Intrahepatic Bile Duct, AJCC 8th Edition - Clinical stage from 10/12/2022: Stage IB (cT1b, cN0, cM0) - Pathologic stage from 01/09/2023: Stage IV (pM1) HISTORY OF PRESENT ILLNESS Oncology History Oncology History Cholangiocarcinoma (HCC) 09/12/[address] of abdomen/pelvis showed 1. Ill-defined heterogeneously enhancing mass in the liver with biliary ductal dilation is concerning for malignancy, possibly intrahepatic cholangiocarcinoma. Further assessment with liver protocol MRI with MRCP is recommended. 2. 13 x 10 mm hypoattenuating lesion posterior right hepatic lobe can be further assessed on liver MRI. 3. No bowel obstruction. 09/28/2022 Other MRCP: IMPRESSION: 1. Ill-defined 4.8 cm mass in liver segment 5/8 with mild peripheral enhancement and possible earlynecrosis. The mass extends biliary ducts towards the hepatic hilum. Findings are concerning for cholangiocarcinoma. -Associated biliary duct narrowing at the hilum of the common bile duct -Narrowing of the intrahepatic biliary ducts near the hilum, particularly the left with associated intrahepatic biliary duct dilatation. 2. Lesion in question on recent CT in the right posterior hepatic lobe is favored to represent hemangioma. 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 The strictures were malignant appearing. Samples obtained and bilateral stenting successful. - One plastic stent was placed into the ventral pancreatic duct for prophylaxis. FINAL DIAGNOSIS Bile, duct, left hepatic duct, bifurcation/confluence, endoscopic biopsy: Small foci of atypical glands, highly suspicious for adenocarcinoma. 10/12/2022 Clinical Stage Staging form: Intrahepatic Bile Duct, AJCC 8th Edition - Clinical stage from 10/12/2022: Stage IB (cT1b, cN0, cM0) Stage prefix: Initial diagnosis 10/16/2022 Other CA 19-9 was 969 U/mL. 10/17/[address] chest: IMPRESSION: 1. Borderline enlarged lower anterior paraesophageal node and mildly prominent medial right diaphragmatic node are indeterminate for metastatic involvement. 2. A couple of tiny pulmonary nodules are technically indeterminate, but of questionable significance. Follow-up is recommended. 11/07/2022 - 02/27/2023 Chemotherapy progression Durvalumab / CISplatin / Gemcitabine Start Date: 11/07/2022 11/28/2022 Genetic Testing and Tumor Genotyping pMMR on IHC. Tempus testing: Loss of function mutations in ROBERTO CARLOS and ARID1A. Gain of function mutation in ERBB4. AR copy number gain, CDKN2A and CDKN2B copy number loss. LUISA, low TMB (4.2 m/Mb). Germline genetics: ROBERTO CARLOS pathogenic mutation and BRCA1 VUS are germline. 01/09/2023 Surgery and Procedures Diagnostic laparoscopy identified peritoneal lesions in the left hemidiaphragm and pelvis which were biopsied and showed metastatic adenocarcinoma. 01/09/2023 Pathologic Stage Staging form: Intrahepatic Bile Duct, AJCC 8th Edition - Pathologic stage from 01/09/2023: Stage IV (pM1) 01/24/2023 Genetic Testing and Tumor Genotyping POSITIVE Germline genetic testing in 2022; [facility] + RNA panel from [facility]. 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 One Variant of Uncertain Significance (VUS) identified in the BRCA1 gene, specifically c.3607C>G 06/18/2023 - Research Study Participant Research Study: A Study of CTX-009 in Combination With Paclitaxel in Adult Patients With Unresectable Advanced, Metastatic or Recurrent Biliary Tract Cancers (WARDROBE SUPERVISOR-002) ([id number]) Treatment Protocol: [facility] CTX-009002 ( CTX-009 / PACLitaxel ) 1.) 10/20-: Hospitalized for cholangitis. ERCP: 2 intrahepatic stents exchanged; 2 temporary plastic stents placed. Blood cultures: + G-bacteremia. (needs stent exchange in 12 weeks per GI) INTERVAL HISTORY: Jorge Luis Sepulveda presented today for evaluation of cycle 8 day 1 of clinical trial [facility] CTX-009-002 ( CTX-009 / PACLitaxel ). He endorses persistent low energy but able to complete daily activities withno restriction. He overall feels better than last visit. Pain has improved and takes Tylenol q12h. Stool is starting to form up and is holding MiraLAX. He does not have any other concerns. All finding s were reviewed with Dolores Rosario APRN, C.N.P., M.S. . INTERVAL HISTORY I have visited with Mr. Sepulveda after having a verbal report from the research RN. I agree with the above history. The following portions of the patient's history were reviewed and updated as appropriate: allergies, current medications, family history, medical history, social history, surgical history, and problem list. CURRENT MEDICATIONS Current Outpatient Medications on File Prior to Visit Medication Sig Dispense Refill amLODIPine (Norvasc) 10 mg tablet Take 1 tablet (10 mg total) by mouth daily. (Patient taking differently: Take 10 mg by mouth at bedtime.) 90 tablet 1 bisacodyL (DULCOLAX) 10 mg suppository Insert 1 suppository (10 mg total) into the rectum daily as needed for constipation. 30 suppository 0 cholecalciferol (VITAMIN D3) 125 mcg (5,000 Unit) capsule Take 125 mcg by mouth daily. coenzyme Q10 (CO Q-10) 10 mg capsule Take 10 mg by mouth daily. cyanocobalamin (VITAMIN B12) 1,000 mcg tablet Take 1,000 mcg by mouth every other day. dexAMETHasone (DECADRON) 4 mg tablet Take 1 tablet (4 mg total) by mouth daily. (Patient taking differently: Take 4 mg by mouth as needed for nausea or vomiting (Emergency supply 3 tablets only if needed.).) 3 tablet 0 docusate sodium (Colace) 100 mg capsule Take 200 mg by mouth daily. fluticasone propionate (Flonase) 50 mcg/actuation nasal spray Administer 2 sprays into each nostrildaily. Daily prn glucosamine lvf-zdhocfoozp-xpv 500-200-150 mg tablet Take 1 tablet by mouth daily. HYDROmorphone (Dilaudid) 2 mg tablet Take 1 tablet (2 mg total) by mouth every 4 (four) hours as needed for pain Indication: Chronic Pain/Nonacute Pain. 42 tablet 0 lisinopriL 20 mg tablet Take 20 mg by mouth daily. magnesium chloride (SLOW-MAG) 71.[address] tablet Take 1 tablet (71.5 mg total) by mouth as directed.Take 2 tabs in the morning and 1 tab in the evening. Do not crush or chew. (Patient taking differently: Take 143 mg by mouth 2 (two) times a day before morning and evening meals. Take 2 tabs in the morning and 2 tab in the evening. Do not crush or chew.) ondansetron ODT (Zofran-ODT) 8 mg disintegrating tablet Dissolve 1 tablet (8 mg total) in the mouthevery 8 (eight) hours as needed for nausea or vomiting. 20 tablet 3 polyethylene glycol (MIRALAX) 17 gram/dose oral powder Take 17 g by mouth at bedtime. Dissolve each17 g dose in 240 mL (8 ounces) of beverage. prochlorperazine (COMPAZINE) 10 mg tablet Take 1 tablet (10 mg total) by mouth every 6 (six) hours as needed for nausea or vomiting (unrelieved by ondansetron). 30 tablet 3 sennosides (senna) 8.6 mg tablet Take 1 tablet (8.6 mg total) by mouth 2 (two) times a day. (Patient taking differently: Take 8.6 mg by mouth. Daily prn) 90 tablet 2 tamsulosin (FLOMAX) 0.4 mg 24 hr capsule Take 1 capsule (0.4 mg total) by mouth daily. (Patient taking differently: Take 0.4 mg by mouth every evening.) 90 capsule 3 Current Facility-Administered Medications on File Prior to Visit Medication Dose Route Frequency Provider Last Rate Last Admin [DISCONTINUED] heparin flush 500 Units 500 Units intra-catheter PRN Yuko Pennington MPAS, P.A.-C. 500 Units at 11/01/23 0924 [DISCONTINUED] sodium chloride 0.9 % injection 20-40 mL 20-40 mL intra-catheter PRN Yuko Pennington MPAS, P.A.-C. 40 mL at 11/01/23 0923 REVIEW OF SYSTEMS REVIEW OF SYSTEMS OBJECTIVE BP 139/73 (BP Location: Left arm, Patient Position: Sitting, Cuff Size: Regular) Pulse 71 Temp 37 ??C (Tympanic) Ht 182.6 cm Wt 87.2 kg SpO2 98% BMI 26.15 kg/m?? PHYSICAL EXAMINATION Physical Exam General: Well appearing 68 y.o. who is in no apparent distress. Appears to be at ECOGperformance status 1 Skin: Non-jaundiced. No rashes. Eyes: No scleral icterus ENT: Oral mucosa is pink and moist. No lesions, ulcerations or thrush. Lungs: Nonlabored, absent of a cough. Extremities: No edema Neuro: Alert and oriented x 3. Calm, interactive and appropriate. No focal neuro deficits. DIAGNOSTICS LABORATORY DATA: Lab data reviewed. ASSESSMENT / PLAN #1 Cholangiocarcinoma (HCC) Prior to meeting with Mr. Sepulveda , I had the opportunity to review past medical record and laboratory results. His blood pressure has come down nicely with the addition of the antihypertensive meds. We will continue to monitor and proceed with his next cycle therapy. The regional coordinator had reached out and we have approval to continue with the study drug at the same dosage as before he was hospitalized. In regards to his pain management we did talk about using Tylenol more frequently. He has been onlytaking it twice a day and now he will consider taking it 3 times a day because the pain is still present even after taking the medication. Bowel function has returned to normal since discontinuation of the MiraLax. We will see him back as per study protocol. Mr. Sepulveda is in full agreement with the plan and denies any further questions or concerns. Has our telephone number to contact us should they have any further questions or concerns. PATIENT EDUCATION: Ready to learn, no apparent learning barriers were identified; learning preferences include listening. Explained diagnosis and treatment plan; patient expressed understanding of the content. ADMINISTRATIVE BILLING I personally spent 30 minutes in care of the patient today. Time includes both non face to face andface to face patient care. documented in this encounter Plan of Treatment Upcoming Encounters Date Type Department Care Team (Latest Contact Info) Description 11/07/2023 3:15 PM CDT Clinical Communication Virtual Review in [place], [place] [address] [place] [address] 11/15/2023 6:40 AM CDT Lab Department of Laboratory Medicine and Pathology, [facility], in [address] [phone] Loyda Lennon M.D. [address] [place] [phone] 11/15/2023 8:20 AM CDT Office Visit Department of Oncology in [place], [place] [address] [place] [phone] Manjit Velasquez APRN, C.N.P., D.N.P. [address] [place] [phone] 11/15/2023 9:30 AM CDT Comprehensive Visit Department of Palliative Care in [address] [phone] Patty Gomez APRN, C.N.P., M.S.N. [address] [place] [phone] 11/15/2023 2:15 PM CDT Infusion Department of Oncology in [place], [place] [address] [place] [phone] Loyda Lennon M.D. [address] [place] [phone] 11/22/2023 7:30 AM CDT Lab Department of Oncology in [address] [phone] Loyda Lennon M.D. [address] [place] [phone] 11/22/2023 8:45 AM CDT Infusion Department of Oncology in [address] [phone] Loyda Lennon M.D. [address] [place] [phone] 11/28/2023 3:30 PM CDT Clinical Communication Virtual Review in [place], [place] [address] [place] [address] 11/29/2023 9:00 AM CDT Procedure visit Department of Urology in [place], [place] [address] [place] [phone] Mark Colorado M.D. [address] [place] [address] 11/29/2023 11:20 AM CDT Lab Department of Laboratory Medicine and Pathology, [facility] in [place], [place] [address] [place] [phone] Loyda Lennon M.D. [address] [place] [phone] 11/29/2023 11:30 AM CDT Lab Department of Oncology in [place], [place] [address] [place] [phone] Loyda Lennon M.D. [address] [place] [phone] 11/29/2023 1:00 PM CDT Infusion Department of Oncology in [place], [place] [address] [place] [phone] Loyda Lennon M.D. [address] [place] [phone] 12/03/2023 1:45 PM CDT Comprehensive Visit Department of Urology in [place], [place] [address] [place] [phone] Mona Egan, PHoldenAHolden-Sara [address] [place] [phone] 12/05/2023 1:20 PM CDT Comprehensive Visit Department of Oncology in [place], [place] [address] [place] [phone] Letty Kate M.D. [address] [place] [phone] 12/10/2023 3:00 PM CDT Clinical Communication Virtual Review in [place], [place] [address] [place] [address] 12/10/2023 3:30 PM CDT Procedure visit Department of Urology in [place], [place] [address] [place] [phone] Mark Colorado M.D. [address] [place] [address] [place] [address] 12/12/2023 3:45 PM CDT Appointment Department of Radiology, [facility], in [place], [place] [address] [place] [phone] Na Hernandez M.D., Ph.D. [address] [place] [phone] 12/13/2023 6:00 AM CDT Lab Department of Laboratory Medicine and Pathology, [facility], in [place], [place] [address] [place] [phone] Loyda Lennon M.D. [address] [place] [phone] 12/13/2023 6:20 AM CDT Lab Department of Infusion Therapy in [place], [place] [address] [place] [phone] Loyda Lennon M.D. [address] [place] [phone] 12/13/2023 11:10 AM CDT Office Visit Department of Oncology in [place], [place] [address] [place] [phone] Na Hernandez M.D., Ph.D. [address] [place] [phone] 12/13/2023 1:00 PM CDT Infusion Department of Oncology in [address] [address] Loyda Lennon M.D. [address] [place] [phone] 12/20/2023 9:20 AM CDT Lab Department of Infusion Therapy in [place], [place] [address] [place] [phone] Loyda Lennon M.D. [address] [place] [phone] 12/20/2023 10:30 AM CDT Infusion Department of Oncology in [place], [place] [address] [place] [phone] Loyda Lennon M.D. [address] [place] [phone] 12/25/2023 10:30 AM CDT Appointment Division of Gastroenterology in [address] [phone] Na Hernandez M.D., Ph.D. [address] [place] [phone] 12/27/2023 10:15 AM CDT Lab Department of Oncology in [place], [place] [address] [place] [phone] Loyda Lennon M.D. [address] [place] [phone] 12/27/2023 10:30 AM CDT Lab Department of Laboratory Medicine and Pathology, [facility], in [place], [place] [address] [place] [phone] Loyda Lennon M.D. [address] [place] [phone] 12/27/2023 11:45 AM CDT Infusion Department of Oncology in [place], [place] [address] [place] [phone] Loyda Lennon M.D. [address] [place] [phone] 01/03/2024 1:00 PM CDT Clinical Communication Virtual Review in [place], [place] [address] [place] [address] 01/10/2024 8:00 AM CDT Lab Department of Infusion Therapy in [place], [place] [address] [place] [phone] Loyda Lennon M.D. [address] [place] [phone] 01/10/2024 8:20 AM CDT Lab Department of Laboratory Medicine and Pathology, [facility], in [place], [place] [address] [place] [phone] Loyda Lennon M.D. [address] [place] [phone] 01/10/2024 10:30 AM CDT Office Visit Department of Oncology in [place], [place] [address] [place] [phone] Na Hernandez M.D., Ph.D. [address] [place] [phone] 01/10/2024 11:45 AM CDT Infusion Department of Oncology in [place], [place] [address] [place] [phone] Loyda Lennon M.D. [address] [place] [phone] 01/17/2024 8:45 AM CDT Lab Department of Oncology in [place], [place] [address] [place] [phone] Loyda Lennon M.D. [address] [place] [phone] 01/17/2024 10:00 AM CDT Infusion Department of Oncology in [place], [place] [address] [place] [phone] Loyda Lennon M.D. [address] [place] [phone] 01/24/2024 8:00 AM CDT Lab Department of Laboratory Medicine and Pathology, [facility] in [place], [place] [address] [place] [phone] Loyda Lennon M.D. [address] [place] [phone] 01/24/2024 8:15 AM CDT Lab Department of Oncology in [place], [place] [address] [place] [phone] Loyda Lennon M.D. [address] [place] [phone] 01/24/2024 9:15 AM CDT Infusion Department of Oncology in [place], [place] [address] [place] [phone] Loyda Lennon M.D. [address] [place] [phone] Scheduled Procedures Name Priority Associated Diagnoses Date/Ti me HEPATECTOMY RESECTION LIVER Cholangiocarcinoma (HCC) ULTRASOUND LIVER Cholangiocarcinoma (HCC) RECONSTRUCTION PORTAL VEIN Cholangiocarcinoma (HCC) documented as of this encounter Visit Diagnoses Diagnosis Retail Product Demo Specialist Current Drug Therapy, Chemotherapy- Primary Cholangiocarcinoma (HCC) Peritoneal Carcinomatosis (HCC) Neutropenia Chemotherapy Induced (HCC) documented in this encounter Additional Health Concerns Infection Onset Date Last Indicated Resolved Time Protective Environment 11/07/2022 11/07/2022 documented as of this encounter Care Teams Picking Machine Operator Helper Relationship Specialty Start Date End Date Mark Colorado M.D. [address] [place] [address] PCP - General Family Medicine 11/09/22 documented as of this encounter
--- OUTSIDE RECORDS SUMMARY | 2023-11-05 22:04 | XMS_ITS | Encounter Summary ---
Author Organization [facility] Address [address] [place] [address] Care Team Providers Care Fell Cutter Name Role Phone Mark Colorado M.D. Primary Care Provider [phone] Reason for Visit * Episode Based Medications (Routine) - Authorized Specialty Diagnoses / Procedures Referred By Contac t Referred To Contact Diagnoses Cholangiocarcinoma (HCC) Alf Current Drug Therapy, Chemotherapy Peritoneal Carcinomatosis (HCC) Neutropenia Chemotherapy Induced (HCC) Procedures ND ONDANSETRON HCL INJECTION ND PACLITAXEL INJECTION ND INJECTION, DARINEL ONC Yuko Pennington MPAS, P.A.-C. [address] [place] [address] Rst Onc Cruz [address] [place] [address] Referral ID Status Reason Start Date Expiration Date V isits Requested Visits Authorized [id number] Authorized 03/11/2023 03/31/2024 31 99 Encounter Details Date Type Department Care Team (Latest Contact Info) Description 11/01/2023 1:00 PM CDT Infusion Department of Oncology in [place], [place] [address] [place] [address] Na Hernandez M.D., Ph.D. 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 I have a [facility] place to live 10/22/2023 Sex [...] PM CDT Clinical Communication Virtual Review in [place], [place] [address] [place] [address] 11/15/2023 6:40 AM CDT Lab Department of Laboratory Medicine and Pathology, [facility], in [place], [place] [address] [place] [phone] Loyda Lennon M.D. [address] [place] [phone] 11/15/2023 8:20 AM CDT Office Visit Department of Oncology in [place], [place] [address] [place] [phone] Manjit Velasquez APRN C.N.P., D.N.P. [address] [place] [phone] 11/15/2023 9:30 AM CDT Comprehensive Visit Department of Palliative Care in [place], [place] [address] [place] [phone] Patty Gomez APRN C.N.P., M.S.N. [address] [place] [phone] 11/15/2023 2:15 PM CDT Infusion Department of Oncology in [place], [place] [address] [place] [phone] Loyda Lennon M.D. [address] [place] [phone] 11/22/2023 7:30 AM CDT Lab Department of Oncology in [address] [address] Loyda Lennon M.D. [address] [place] [phone] 11/22/2023 8:45 AM CDT Infusion Department of Oncology in [address] [phone] Loyda Lennon M.D. [address] [place] [phone] 11/28/2023 3:30 PM CDT Clinical Communication Virtual Review in [address] [phone] 11/29/2023 9:00 AM CDT Procedure visit Department of Urology in [place], [place] [address] [place] [address] Mark Colorado M.D. [address] [place] [phone] 11/29/2023 11:20 AM CDT Lab Department of Laboratory Medicine and Pathology, [facility] in [place], [place] [address] [place] [address] Loyda Lennon M.D. [address] [place] [phone] 11/29/2023 11:30 AM CDT Lab Department of Oncology in [place], [place] [address] [place] [address] Loyda Lennon M.D. [address] [place] [phone] 11/29/2023 1:00 PM CDT Infusion Department of Oncology in [place], [place] [address] [place] [phone] Loyda Lennon M.D. [address] [place] [phone] 12/03/2023 1:45 PM CDT Comprehensive Visit Department of Urology in [place], [place] [address] [place] [phone] Mona Egan, Shanda [address] [place] [phone] 12/05/2023 1:20 PM CDT Comprehensive Visit Department of Oncology in [place], [place] [address] [place] [phone] Letty Kate M.D. [address] [place] [phone] 12/10/2023 3:00 PM CDT Clinical Communication Virtual Review in [place], [place] [address] [place] [address] 12/10/2023 3:30 PM CDT Procedure visit Department of Urology in [place], [place] [address] [place] [phone] Mark Colorado M.D. [address] [place] [address] [place] [address] 12/12/2023 3:45 PM CDT Appointment Department of Radiology, [facility], in [place], [place] [address] [place] [phone] Na Hernandez M.D., Ph.D. [address] [place] [phone] 12/13/2023 6:00 AM CDT Lab Department of Laboratory Medicine and Pathology, [facility], in [place], [place] [address] [place] [phone] Loyda Lennon M.D. [address] [place] [phone] 12/13/2023 6:20 AM CDT Lab Department of Infusion Therapy in [place], [place] [address] [place] [phone] Loyda Lennon M.D. [address] [place] [phone] 12/13/2023 11:10 AM CDT Office Visit Department of Oncology in [place], [place] [address] [place] [phone] Na Hernandez M.D., Ph.D. [address] [place] [phone] 12/13/2023 1:00 PM CDT Infusion Department of Oncology in [place], [place] [address] [place] [phone] Loyda Lennon M.D. [address] [place] [phone] 12/20/2023 9:20 AM CDT Lab Department of Infusion Therapy in [place], [place] [address] [place] [phone] Loyda Lennon M.D. [address] [place] [phone] 12/20/2023 10:30 AM CDT Infusion Department of Oncology in [place], [place] [address] [place] [address] Loyda Lennon M.D. [address] [place] [phone] 12/25/2023 10:30 AM CDT Appointment Division of Gastroenterology in [place], [place] [address] [place] [phone] Na Hernandez M.D., Ph.D. [address] [place] [phone] 12/27/2023 10:15 AM CDT Lab Department of Oncology in [place], [place] [address] [place] [phone] Loyda Lennon M.D. [address] [place] [phone] 12/27/2023 10:30 AM CDT Lab Department of Laboratory Medicine and Pathology, [facility], in [place], [place] [address] [place] [address] Loyda Lennon M.D. [address] [place] [phone] 12/27/2023 11:45 AM CDT Infusion Department of Oncology in [place], [place] [address] [place] [phone] Loyda Lennon M.D. [address] [place] [phone] 01/03/2024 1:00 PM CDT Clinical Communication Virtual Review in [place], [place] [address] [place] [address] 01/10/2024 8:00 AM CDT Lab Department of Infusion Therapy in [address] [address] Loyda Lennon M.D. [address] [place] [phone] 01/10/2024 8:20 AM CDT Lab Department of Laboratory Medicine and Pathology, [facility] in [address] [address] Loyda Lennon M.D. [address] [place] [phone] 01/10/2024 10:30 AM CDT Office Visit Department of Oncology in [address] [phone] Na Hernandez M.D., Ph.D. [address] [place] [phone] 01/10/2024 11:45 AM CDT Infusion Department of Oncology in [place], [place] [address] [place] [phone] Loyda Lennon M.D. [address] [place] [phone] 01/17/2024 8:45 AM CDT Lab Department of Oncology in [place], [place] [address] [place] [phone] Loyda Lennon M.D. [address] [place] [phone] 01/17/2024 10:00 AM CDT Infusion Department of Oncology in [place], [place] [address] [place] [phone] Loyda Lennon M.D. [address] [place] [phone] 01/24/2024 8:00 AM CDT Lab Department of Laboratory Medicine and Pathology, [facility] in [place], [place] [address] [place] [phone] Loyda Lennon M.D. [address] [place] [phone] 01/24/2024 8:15 AM CDT Lab Department of Oncology in [place], [place] [address] [place] [phone] Loyda Lennon M.D. [address] [place] [phone] 01/24/2024 9:15 AM CDT Infusion Department of Oncology in [address] [address] Loyda Lennon M.D. 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 Peritoneal Carcinomatosis (HCC) Neutropenia Chemotherapy Induced (HCC) documented in this encounter Administered Medications Inactive Administered Medications - up to 3 most recent administrations Medication Order MAR Action Action Date Dose Rate Site dexAMETHasone injection 10 mg (Decadron) 10 mg, intravenous, Once, On Sat11/01/23 at 1330, For 1 dose Given 11/01/2023 1:24 PM CDT 10 mg diphenhydrAMINE 25 mg in NaCl 0.9% IVPB (BenadryL) 25 mg, intravenous, at 101 mL/hr, Administer over 30 Minutes, Once, On Sat11/01/23 at 1330, For 1 dose New Bag 11/01/2023 1:37 PM CDT 25 mg 101 mL/hr famotidine injection 20 mg (Pepcid) 20 mg, intravenous, Once, On Sat11/01/23 at 1330, For 1 dose Given 11/01/2023 1:23 PM CDT 20 mg heparin flush 500 Units 500 Units, intra-catheter, As needed, line care, Starting on Sat11/01/23 at 1252, When IVAD accessed and not infusing: When no infusion to maintain patency flush every 7 days following NaCL flush. 5 mL (500 units) of Heparin 100 units/mL to each port/lumen. When IVAD not accessed or infusing: When no infusion to maintain patency flush every 28 days following NaCL flush. 5 mL (500 units) of Heparin 100 units/mL to each port/lumen. Given 11/01/2023 4:52 PM CDT 500 Units NaCl 0.9 % bolus 1,000 mL 1,000 mL, intravenous, at 1,000 mL/hr, Administer over 1 Hours, Once, On Sat11/01/23 at 1330, For 1 dose Restarted 11/01/2023 3:49 PM CDT 1000 mL/hr New Bag 11/01/2023 1:19 PM CDT 1,000 mL 1000 mL/hr ondansetron (PF) injection 8 mg (Zofran) 8 mg, intravenous, Once, On Sat11/01/23 at 1330, For 1 dose Given 11/01/2023 1:34 PM CDT 8 mg PACLitaxeL 126 mg in NaCl 0.9% (non-PVC/non-DEHP) 296 mL IVPB (TaxoL) 126 mg (rounded from 128.4 mg = 60 mg/m2 ? 2.14 m2 Treatment Plan BSA from Measured weight), intravenous, at 296 mL/hr, Administer over 1 Hours, Once, On Sat11/01/23 at 1500, For 1 dose, Administer immediately after the end of the CTX-009 infusion. Administer via 0.22 micron in-line filter. New Bag 11/01/2023 3:42 PM CDT 126 mg 296 mL/hr [facility] IR[facility] [id number] CTX-009 900 mg in NaCl 0.9% (non-PVC/non-DEHP) 250 mL IVPB 900 mg (10 mg/kg ? 90 kg Treatment plan Measured weight), intravenous, at 250 mL/hr, Administer over 1 Hours, Once, On Sat11/01/23 at 1400, For 1 dose, May administer 15 minutes after premedications. Administer prior to PACLitaxel over 60 minutes (+/- 5 minutes). Final concentration should not exceed 10 mg/ml; rate should not exceed 300 ml/hr. Flush with 30 mL normal saline following infusion using orders in the Vascular Access Patency Nurse Protocol. Do not shake. Use 0.2 micron filter tubing during administration. Ensure bag and tubing are non-PVC. New Bag 11/01/2023 2:26 PM CDT 900 mg 250 mL/hr sodium chloride 0.9 % injection 10-20 mL 10-20 mL, intra-catheter, As needed, line care, Starting on Sat11/01/23 at 1252, When IVAD accessed and infusing: Flush prior to and following infusion, between multiple consecutive infusions. 10 mL to each port/lumen. Given 11/01/2023 4:52 PM CDT 10 mL Given 11/01/2023 3:31 PM CDT 30 mL Given 11/01/2023 1:19 PM CDT 10 mL documented in this encounter Additional Health Concerns Infection Onset Date Last Indicated Resolved Time Protective Environment 11/07/2022 11/07/2022 documented as of this encounter Care Teams Fell Cutter Relationship Specialty Start Date End Date Mark Colorado M.D. [place]: [phone] [id number] [place], [place] [phone] PCP - General Family Medicine 11/09/22 documented as of this encounter
--- OUTSIDE RECORDS SUMMARY | 2023-11-05 22:05 | XMS_ITS | Encounter Summary ---
Author Organization [facility] Address [address] [place] [address] Care Team Providers Care Actuarial Mathematician Name Role Phone Mark Colorado M.D. Primary Care Provider [phone] Reason for Referral * Outpatient (Routine) - Authorized Specialty Diagnoses / Procedures Referred By Chloe t Referred To Contact Diagnoses Weakness General Anemia Chemotherapy Induced Chito Duran M.D. [address] [place] [address] Referral ID Status Reason Start Date Expiration Date V isits Requested Visits Authorized [id number] Authorized 10/24/2023 04/24/2025 1 1 Reason for Visit * Reason Comments Altered Mental Status * Auth/Cert (Routine) Specialty Diagnoses / Procedures Referred By Tomac t Referred To Contact Diagnoses Change Mental Status Procedures OBS TO INPT Referral ID Status Reason Start Date Expiration Date Visits Re quested Visits Authorized [id number] 1 1 Encounter Details Date Type Department Care Team (Latest Contact Info) Description 10/22/2023 3:09 AM CDT - 10/24/2023 5:52 PM CDT Hospital Encounter [facility], [facility], Sixth Floor [address] [place] [phone] Donna Prince M.D., M.P.H. [address] [place] [address] Ricki Navarro M.B., B.Chir. [address] [place] [phone] Change Mental Status (Primary Dx); Sepsis (HCC); Elevated Liver Function Test; Retention Urinary; Constipation Slow Transit; Weakness General; Anemia Chemotherapy Induced; Debility [R53.81] Discharge Disposition: Home-Health Care Svc Social History Tobacco Use Types Packs/Day Years Used Date Smoking Tobacco: Never Passive Smoke Exposure: Never Smokeless Tobacco: Never Alcohol Use Standard Drinks/Week Comments Not Currently 0 (1 standard drink = 0.6 oz pur e alcohol) [facility] Utilities Answer Date Recorded In the past 12 months has e [employer], gas, oil, or water [employer] threatened to shut off services in your [...] your living situation today? I have a [facility] place to live 10/22/2023 Sex and Gender Information Value Date Recorded Sex Assigned at Male 09/10/2022 12:02 PM CDT Gender Identity Male 09/10/2022 12:02 PM CDT Sexual Orientation Straight 09/10/2022 12 :02 PM CDT documented as of this encounter Last Filed Vital Signs Vital Sign Reading Time Taken Comments Blood Pressure 162/80 10/24/2023 11:38 AM CDT Pulse 69 10/24/2023 4:30 PM CDT Temperature 36.6 ??C (97.9 ??F) 10/24/2023 1 1:45 AM CDT Respiratory Rate 16 10/24/2023 4:30 PM CDT Oxygen Saturation 98% 10/24/2023 4:30 PM CDT Inhaled Oxygen Concentration - - Weight 90.2 kg (198 lb 13.7 oz) 024 11:52 AM CDT Height 185.4 cm (6' 0.99) 10/23/2023 1 1:52 AM CDT Body Mass Index 26.24 10/22/2023 11:52 AM CDT documented in this encounter Discharge Summaries * Chito Duran M.D. - 10/24/2023 3:19 PM CDT DISCHARGE SUMMARY BRIEF OVERVIEW Hospital: [facility] Discharge Provider: Ricki Navarro M.B. Primary Care Provider at Discharge: Primary Care Providers: Mark Colorado M.D. (General) [id number] [place] [phone] Primary Care Provider Primary Care Provider Primary Team: [facility] Gastroenterology A Admission Date: 10/22/2023 Discharge Date: 10/24/2023 PRINCIPAL DIAGNOSIS Change Mental Status SECONDARY DIAGNOSES Principal Problem: Change Mental Status Active Problems: Cholangitis Acute (HCC) Resolved Problems: * No resolved hospital problems. * DISCHARGE DISPOSITION Home-Health Care [facility] [6] ACTIVE ISSUES REQUIRING FOLLOW UP Discharge Notes from your Provider Team You were discharged from the gastroenterology Service. Please identify this service name if you call with questions after hospitalization. You were hospitalized for infection of the bile ducts called cholangitis. You had the two stents replaced due to blockage. You were treated with IV antibiotics for 2 days and will continue oral antibiotics until 10/27. Please seek emergency care if you experience chest pain, shortness of breath, abdominal pain, nausea/vomiting, bleeding, fevers, pain. Medication changes: New: Bactrim twice daily through 10/27 - STOP taking lisinopril until instructed to restart by primary care provider Follow-up: - Please attend follow up appointments as listed in after visit summary - Please make an appointment to see your PCP within a week of discharge. Please have your PCP checkyour electrolytes, particularly potassium and creatinine. - You will be scheduled for a repeat ERCP in 8-10 weeks. If you have any questions related to issues addressed during your hospitalization prior to your follow-up appointments, contact the [facility] Registered Veterinary Technician at [phone] and ask to speak with the Gastroenterology-A Service OUTPATIENT FOLLOW UP Scheduled Appointments Next 10 Appointments 10/29/2023 6:00 AM LAB BLOOD [facility] Laboratory Medicine 10/29/2023 6:10 AM LAB URINE CONTAINER [facility] Laboratory Medicine 10/29/2023 7:20 AM Dolores Rosario APRN, C.N.P., M.S. Oncology 10/29/2023 8:45 AM ONC CHAIR CHEMO [address] [facility] Oncology 10/29/2023 1:15 PM Ronel Moreno M.D., M.S.; DALLIN RN NURSE 01 [facility] Palliative Medicine 10/30/2023 1:00 PM Mark Colorado M.D. Family Medicine 11/07/2023 3:15 PM RST INTAKE VISIT POD C 03 Admitting/Central Scheduling 11/12/2023 6:30 [address] [place] [id number] Research 11/12/2023 8:30 AM LAB URINE CONTAINER [place] [id number] Laboratory Medicine 11/12/2023 8:45 AM INF ONC PORT DRAW [address] [facility] Oncology Displaying the next 10 appointments. This patient has additional appointments scheduled. For appointment details refer to your Patient Appointment Guide. TEST RESULTS PENDING AT DISCHARGE Pending Labs None DETAILS OF HOSPITAL STAY REASON FOR ADMISSION Change Mental Status Retention Urinary Sepsis (HCC) Elevated Liver Function Test Cholangitis Acute (HCC) HOSPITAL COURSE Mr. Jorge Luis Sepulveda is a 68-year-old man admitted on 10/22/2023 for cholangitis in the setting of metastatic cholangiocarcinoma. As noted above, medical history is notable for cholangiocarcinoma with metastases to the peritoneum and prior stenting. This was diagnosed in September 18, 2022. Patient was due for a stent exchange in late September. Prior to this, he developed abdominal pain and nausea with fevers and some associated drowsiness. Blood cultures were notable for Gram-negative bacteremia, and patient was placed on IV antibiotics (initially Zosyn, transitioned to Bactrim after 2 days in light of sensitivities). He underwent ERCP on 10/22/23; this revealed acute cholangitis from 2 partially occluded stents in the biliary tree. These were removed and exchanged for 2 new stents (temporary plastic stents placed in the left hepatic duct and right hepatic duct respectively). A prior biliary sphincterotomy appeared open, the biliary tree was swept and debris, sludge, and pus was found. On 10/23, patient was tolerating oral intake, ambulating well, and hemodynamically stable. Follow-up ERCP was planned for 8-10 weeks after discharge. Patient will continue a course of Bactrim through10/27. Recommend he follow-up with PCP within a week of discharge to recheck electrolytes, particularly potassium and creatinine. CONSULTS ORDERED DURING THIS ADMISSION IP CONSULT TO DIETITIAN IP CONSULT TO CARE MANAGEMENT Lipase, P Date Value Ref Range Status 10/21/2023 61 (H) 13 - 60 U/L Final Amylase, Total, S Date Value Ref Range Status 10/08/2023 39 28 - 100 U/L Final Leukocytes Date Value Ref Range Status 10/24/2023 4.5 3.4 - 9.6 x10(9)/L Final Erythrocytes Date Value Ref Range Status 10/24/2023 2.49 (L) 4.35 - 5.65 x10(12)/L Final Hemoglobin Date Value Ref Range Status 10/24/2023 8.1 (L) 13.2 - 16.6 g/dL Final Platelet Count Date Value Ref Range Status 10/24/2023 164 135 - 317 x10(9)/L Final Aspartate Aminotransferase (AST), P Date Value Ref Range Status 10/21/2023 76 (H) 8 - 48 U/L Final Aspartate Aminotransferase (AST), S Date Value Ref Range Status 10/22/2023 165 (H) 8 - 48 U/L Final Alanine Aminotransferase (ALT), S Date Value Ref Range Status 10/22/2023 121 (H) 7 - 55 U/L Final Bilirubin, Total, S Date Value Ref Range Status 10/22/2023 0.6 0.0 - 1.2 mg/dL Final Bilirubin, Total, P Date Value Ref Range Status 10/21/2023 0.3 0.0 - 1.2 mg/dL Final Alkaline Phosphatase, P Date Value Ref Range Status 10/21/2023 241 (H) 40 - 129 U/L Final Alkaline Phosphatase, S Date Value Ref Range Status 10/22/2023 334 (H) 40 - 129 U/L Final BUN (Blood Urea Nitrogen), P Date Value Ref Range Status 10/22/2023 24 8 - 24 mg/dL Final BUN (Blood Urea Nitrogen), S Date Value Ref Range Status 10/24/2023 35 (H) 8 - 24 mg/dL Final Creatinine Date Value Ref Range Status 10/24/2023 1.62 (H) 0.74 - 1.35 mg/dL Final 10/22/2023 1.40 (H) 0.74 - 1.35 mg/dL Final EXT Creatinine, POCT, B Date Value Ref Range Status 09/21/2021 1.10 0.57 - 1.11 mg/dL Final Comment: Caution: Patients taking Hydroxyurea have falsely increased iStat Creatinine results. Verify creatinine results ordering a Creatinine (45320.2) Glucose, P Date Value Ref Range Status 10/22/2023 123 70 - 140 mg/dL Final Glucose, S Date Value Ref Range Status 10/24/2023 130 70 - 140 mg/dL Final Glucose, POCT, B Date Value Ref Range Status 10/22/2023 122 70 - 140 mg/dL Final INR Date Value Ref Range Status 10/22/2023 1.4 0.9 - 1.1 Final Comment: ----ADDITIONAL INFORMATION---- Standard intensity warfarin therapeutic range: 2.0 to 3.0 High intensity warfarin therapeutic range: 2.5 to 3.5 04/12/2023 1.2 0.9 - 1.1 Final Comment: ----ADDITIONAL INFORMATION---- Standard intensity warfarin therapeutic range: 2.0 to 3.0 High intensity warfarin therapeutic range: 2.5 to 3.5 CONDITION AT DISCHARGE improved Discharge instructions were provided to the patient and caregiver(s). Total time spent in discharge services today: 45 minutes. documented in this encounter Discharge Instructions * Discharge Instructions* Sha Llanos - 10/22/2023 1:31 PM CDT You were discharged from the [facility] Gastroenterology A Service. Please identify this service name if you call with questions after hospitalization. * Attachments The following attachments cannot be sent through Care Everywhere. * Sulfamethoxazole (By mouth) (Mauritanian) documented in this encounter Medications at Time of Discharge [...] each nostril daily. Daily prn 10/24/2023 glucosamine ryb-tqweycuptm-vqi 500-200-150 mg tablet Take 1 tablet by mouth daily. 12/05/2021 HYDROmorphone (Dilaudid) 2 mg tabletIndications:Chr onic Pain/Nonacute Pain Take 1 tablet (2 mg total) by mouth every 4 (four) hours as needed for pain Indication: Chronic Pain/Nonacute Pain. 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 30 tablet 3 11/02/2022 11/02/2023 sulfamethoxazole-trim ethoprim (Bactrim DS) 800-160 mg per tabletIndications:Int ra-abdominal infection, community acquired Take 1 tablet by mouth every 12 (twelve) hours for 4 days Indications: Intra-abdominal infection, community acquired. 8 tablet 10/24/2023 10/28/2023 documented as of this encounter Progress Notes * Florida Eldridge R.N. - 10/24/2023 2:06 PM CDT SUBJECTIVE Referral Data manager technical services met with patient and family to discuss discharge planning needs. They are interested in home health services for PT/OT. patient and family declined additional resources. Anticipated Needs Anticipated Discharge Destination: Home-Health Care c OBJECTIVE The patient was seen for ongoing discharge needs. A list of home health care options (that patient/family geographically resides or requests) has been provided to and reviewed with patient/family. Disclaimers: Medicare/commercial Insurance: Patient and/or family/responsible republican were informed of contracted providers with their insurance plan. If available, choices were provided. Reviewed insurance coverage, provided patient with in-network options if applicable. patient and family declined additional resources. Patient is hospitalized on [address] in room 320. ASSESSMENT / PLAN Assessment The Person(s) Present During Interview: patient and spouseJan appear to have insight into the patient's needs at this time and are planning appropriately for discharge needs. They report agreement with the below plan with no further questions at this time. Plan Patient to discharge home with home health care. Home Medical Care - Admitted Since 10/22/2023 Service Provider Selected Services Address Phone Fax Patient Preferred [facility] [address], [facility] [phone] -- String Laster: intake NURSING: - Complete documentation in the Discharge Navigator including Nursing Report Info and Facility/NextLevel of Care Info - Call report and arrange for the patient's first visit - Send After Visit Summary and required packet of dismissal information with patient, including advance directive. PRIMARY SERVICE: - Please provide a non-[facility] home health order for: physical therapy and occupational therapy to start SaturdayOctober 28 in the After Visit Summary. ORDER MUST INCLUDE THE START DATE - Communicate with the patient's local primary care provider by telephone for writing of home care orders. This needs to be done to help prevent discharge delays. A copy of the After Visit Summary needs to be sent there as well. CASE MANAGEMENT: -Will continue to follow for ongoing discharge planning needs. Florida Eldridge R.N. 10/24/2023 * Ricki Navarro M.B., B.Chir. - 10/24/2023 9:52 AM CDT By agree with the history, physical examination evaluation as documented by Dr. Brown. He feels fatigued and tired. Discussed with his that he may need more frequent ERCPs due to progression of disease rather than waiting every 12 weeks. Renal function has slightly worsened to a 0.62 probably this is most likely a combination of ATN aswell as prerenal causes. Urinalysis pending. Physical examination lady bed. Assessment/plan: #1 Acute cholangitis with Klebsiella bacteremia Mr. 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 The stents were exchanged successfully with plastic stents both in the left and right biliary ductal system. We will keep him on antibiotics. He will meet up with physical therapy. We will contact his local oncologist to inform her of the situation. We will arrange for repeat ERCP and stent exchange in 8 weeks. She can follow up with Dr. Hernandez int Oncology Clinic #2 Metastatic cholangiocarcinoma with peritoneal metastases He is on experimental chemotherapy. #3 Acute kidney injury most likely secondary to ATN from cholangitis and prerenal issues We will await the urinalysis. Non-severe (moderate) Malnutrition The patient meets the ASPEN Criteria of malnutrition based on: Energy Intake: Less than or equal to 75% of estimated energy requirement for greater than or equal to 1 month Interpretation of Weight Loss: No Change Body Fat: Normal Muscle Mass: Mild Loss Fluid Accumulation: Absent Reduced Gut Dropper Strength: Other (Comment) (Fatigue and decreased activity) This is in the context of Chronic Illness. Malnutrition Present Upon Admission: Yes Agree with Registered Dietitian's assessment and treatment plan: * Milla Snyder M.D. - 10/23/2023 2:11 PM CDT Images from the original note were not included. [facility] Gastroenterology A PROGRESS NOTE SUBJECTIVE Mr. Jorge Luis Sepulveda is a 68 y.o. male with a history of cholangiocarcinoma who presented to the ED with weakness and AMS, found to have fever, elevated transaminases and admitted to GI for cholangitis. Now status post ERCP on 10/21 with removal and replacement of two intrahepatic stents. Blood cultures positive for G- bacteremia, status post Zosyn for 2 days and now on Bactrim. Interval events feeling weak this morning Tolerating PO, no nausea or vomiting Continues to have diarrhea No pain I have reviewed the current medication list. OBJECTIVE VITAL SIGNS Temperature: [36.3 ??C-36.9 ??C] 36.6 ??C Heart Rate: [71-76] 76 Resp Rate: [14-20] 14 Blood Pressure: (136-166)/(64-95) 136/81 SpO2: [91 %-98 %] 95 % Height: [185.4 cm] 185.4 cm Pulse Rate: [66-78] 78 PHYSICAL EXAMINATION General: Alert, interactive, cachectic, not in acute distress ENT: Hearing grossly intact. Lungs: breathing comfortably on room air Heart: Regular rate and rhythm. No murmurs appreciated. Abdomen: Soft, flat, bowel sounds normoactive, nontender Mental: Mood and affect congruent. Alert and oriented. Attention intact. No evidence of disorganized thinking. 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 DIAGNOSTICS I have personally reviewed the laboratory data and imaging since admission, and in/outs for past 72hours. ASSESSMENT / PLAN Mr. Sepulveda is hospitalized on [facility] Gastroenterology A for evaluation and management of Change Mental Status. He presented with symptoms of drowsiness, nausea, vomiting, diarrhea, fever, and tachycardia. Upon presentation to gastroenterology, he was hemodynamically stable and tachycardia resolved with fluids in the ED. He has a history of cholangiocarcinoma status post chemotherapy and currently enrolled in trial. Labs were significant for elevated transaminases. Ultrasound with difficult to visualize common bile duct and intrahepatic ducts. Differential most suggestive of cholangitis given patient's fever, tachycardia, and abdominal pain vs choledocholithiasis vs other infectious process. Dueto high suspicion for cholangitis, proceeded with ERCP on 10/22/23 which was suggestive of acute cholangitis from two partially occluded stents in the biliary tree which were removed and exchanged fortwo new stents in the left hepatic duct and right hepatic duct. Infectious workup also initiated on admission with blood cultures and chest x ray which showed small left pleural effusion. Blood cultures with klebsiella bacteremia, planning for 5 day course of Bactrim (already received Zosyn x2 days). Ordered GI pathogen panel given patient's recent diarrhea andvomiting, not yet collected. # Change Mental Status # Metastatic Intrahepatic Cholangiocarcinoma # Leukopenia # Elevated transaminases # Elevated alkaline phosphatase # Cholangitis # Klebsiella bacteremia ERCP 10/21, follow-up findings/recommendations Status post Zosyn x 2 days; now on Bactrim PO x 5 days (anticipate end date of 7/29) F/up GI path panel Tolerating oral intake. Consider additional fluids if no longer tolerating. # HTN Hold home amlodipine and lisinopril given concern for infection Baseline Mobility: BMAT Level 4 (Able to stand and walk) Diet: general diet Tubes/lines: PIV VTE prophylaxis: heparin Code status: Prior Disposition: Home Non-severe (moderate) Malnutrition The patient meets the ASPEN Criteria of malnutrition based on: Energy Intake: Less than or equal to 75% of estimated energy requirement for greater than or equal to 1 month Interpretation of Weight Loss: No Change Body Fat: Normal Muscle Mass: Mild Loss Fluid Accumulation: Absent Reduced Gut Dropper Strength: Other (Comment) (Fatigue and decreased activity) This is in the context of Chronic Illness. Malnutrition Present Upon Admission: Yes Agree with Registered Dietitian's assessment and treatment plan: Interventions: Increase nutrient intake with small, frequent meals and/or snacks, Medical food supplement, Vitamin and mineral supplements Plan discussed with [facility] Gastroenterology A Adult Specialist, Ricki Trevizo MHoldenBHolden, who was present during lee portions of the evaluation today. Please page the [facility] Gastroenterology A service pager [phone] with any questions. Milla Snyder M.D. PGY-1 Internal Medicine Pager # [phone] 10/23/23 * Yolanda Foster, Pharm.D., R.Ph., [facility] - 10/23/2023 7:08 AM CDT Pharmacist Progress Note Reason for admission: generalized weakness, lower abdominal pain, AMS PMH: peritoneal carcinomatosis, metastatic intrahepatic cholangiocarcinoma (s/p paclitaxel treatment finished about 1 week ago while enrolled in CTX-009 clinical trial), chemotherapy-induced anemias OBJECTIVE Home medications: Held: amlodipine, Co-Q10, lisinopril, tamsulosin (patient reported not taking) New: IV Zosyn Renal: Serum creatinine: 1.71 mg/dL (H) 10/23/23 0022 Estimated creatinine clearance: 51.3 mL/min (A) Baseline (~1.1-1.2) VTE prophylaxis: Heparin 5000 units SQ TID ASSESSMENT / PLAN Bacteremia 2/2 cholangitis: S/p ERCP on 10/21 showing acute cholangitis from partially occluded biliary stents. Repeat ERCP in outpatient setting. 3/ blood cultures positive for Klebsiella oxytoca. Day 2 of Zosyn. Since patient close to discharge, team wanting to change to PO antibiotics. Additional susceptibilities to PO agents not available until at least Saturday per micro lab, but based on antibiogram and patient-specific factors (age, renal function), recommend PO Bactrim (>90% susceptible per antibiogram) 1 DS tab BID to complete total of 7 days (end date 10/27) with close follow-up forlabs and final susceptibilities. Diarrhea: consider discontinuing scheduled [place] HTN: Holding home amlodipine and lisinopril at this time. Consider restarting since SBPs 130-170s. Pharm. RoroD., R.Ph., BCPS * Yolanda Foster, PharmHoldenD., R.Ph., BCPS - 10/22/2023 4:08 PM CDT Images from the original note were not included. Admission Medication History Note Adherence issues: No concerns Medication list source: Patient Medication related information: - Patient reports taking amlodipine and lisinopril at bedtime - Patient reports that he is no longer taking tamsulosin due to adverse reaction but would still like to keep on med list in case it needs to be resumed at a later time - Patient reports having a 3-day emergency supply of dexamethasone 4 mg at home to take as needed for N/V unrelieved by ondansetron/prochlorperazine Prior to Admission Medications Med List Status: Pharmacy Complete Set By: Yolanda Foster, Pharm.D., R.Ph., BCPS at 10/22/2023 4:04 PM Status Comment 10/22/2023 4:13 PM Via telephone Taking? Last Dose Informant Start Date End Date LT amLODIPine (Norvasc) 10 mg tablet 10/21/2023 -- 10/08/23 02/05/24 Take 1 tablet (10 mg total) by mouth daily. Patient taking differently: Take 10 mg by mouth at bedtime. bisacodyL (DULCOLAX) 10 mg suppository Unknown Self 09/12/22 -- Insert 1 suppository (10 mg total) into the rectum daily as needed for constipation. Notes: PRN cholecalciferol (VITAMIN D3) 125 mcg (5,000 Unit) capsule 10/21/2023 Self -- -- Take 125 mcg by mouth daily. coenzyme Q10 (CO Q-10) 10 mg capsule 10/21/2023 Self 12/01/20 -- Take 10 mg by mouth daily. cyanocobalamin (VITAMIN B12) 1,000 mcg tablet 10/21/2023 Self 12/05/21 -- Take 1,000 mcg by mouth every other day. dexAMETHasone (DECADRON) 4 mg tablet Unknown Self 08/30/23 -- Take 1 tablet (4 mg total) by mouth daily. Patient taking differently: Take 4 mg by mouth as needed for nausea or vomiting (Emergency supply 3tablets only if needed.). Notes: NOT TAKING docusate sodium (Colace) 100 mg capsule 10/21/2023 Self -- -- Take 200 mg by mouth daily. fluticasone propionate (FLONASE) 50 mcg/actuation nasal spray Unknown -- 02/14/23 -- Administer 2 sprays into each nostril daily. Patient taking differently: Administer 2 sprays into each nostril daily. Daily prn Notes: PRN glucosamine eya-enkkpcqsdd-mee 500-200-150 mg tablet 10/21/2023 Self 12/05/21 -- Take 1 tablet by mouth daily. HYDROmorphone (Dilaudid) 2 mg tablet Unknown -- 10/16/23 -- Take 1 tablet (2 mg total) by mouth every 4 (four) hours as needed for pain Indication: Chronic Pain/Nonacute Pain. Notes: Approval for substitution of equivalent dose/quantity of any available hydromorphone dosage forms, including compounds during drug shortage lisinopriL 20 mg tablet 10/21/2023 -- 10/16/23 -- Take 1 tablet (20 mg total) by mouth daily. Patient taking differently: Take 20 mg by mouth at bedtime. magnesium chloride (SLOW-MAG) 71.[address] tablet 10/21/2023 Self 01/17/23 -- Take 1 tablet (71.5 mg total) by mouth as directed. Take 2 tabs in the morning and 1 tab in the evening. Do not crush or chew. Patient taking differently: Take 143 mg by mouth 2 (two) times a day before morning and evening meals. Take 2 tabs in the morning and 2 tab in the evening. Do not crush or chew. ondansetron ODT (Zofran-ODT) 8 mg disintegrating tablet Unknown -- 10/16/23 -- Dissolve 1 tablet (8 mg total) in the mouth every 8 (eight) hours as needed for nausea or vomiting. Notes: PRN polyethylene glycol (MIRALAX) 17 gram/dose oral powder 10/21/2023 Self 10/23/22 -- Take 17 g by mouth at bedtime. Dissolve each 17 g dose in 240 mL (8 ounces) of beverage. prochlorperazine (COMPAZINE) 10 mg tablet Unknown Self 11/02/22 11/02/23 Take 1 tablet (10 mg total) by mouth every 6 (six) hours as needed for nausea or vomiting (unrelieved by ondansetron). Notes: PRN sennosides (senna) 8.6 mg tablet Unknown -- 03/03/23 -- Take 1 tablet (8.6 mg total) by mouth 2 (two) times a day. Patient taking differently: Take 8.6 mg by mouth. Daily prn Notes: PRN tamsulosin (FLOMAX) 0.4 mg 24 hr capsule 10/21/2023 Self 02/14/23 -- Take 1 capsule (0.4 mg total) by mouth daily. Patient taking differently: Take 0.4 mg by mouth every evening. Notes: STOPPED TAKING documented in this encounter H&P Notes * Milla Snyder M.D. - 10/22/2023 11:08 AM CDT Images from the original note were not included. [facility] Gastroenterology A Admission Note SUBJECTIVE CHIEF COMPLAINT/REASON FOR VISIT Altered mental status HISTORY OF PRESENT ILLNESS Mr. Jorge Luis Sepulveda is a 68 y.o. male with a history of cholangiocarcinoma (see below) who presentedto the ED with weakness and AMS. He was admitted to the gastroenterology service due to concern forcholangitis. Mr. Sepulveda reports he starting feeling bad about week ago with pain in his lower abdomen on both sides. He started having nausea and vomiting yesterday and went to [facility]. He was given fluidsand zofran and discharged from ED. His started to notice that he was more drowsy than normal yesterday evening at 6pm. He then vomited in the middle of the night and EMS was called and patient was brought to [facility] ED. ED Course Fever 39.4C Tachycardic 116-120 HR improved with fluids 1L LR Zosyn started due to concern for cholangitis Medical history Metastatic intrahepatic cholangiocarcinoma Diagnosed 08/[address] Pennington and Dr. Hernandez Initial treatment: gemcitabine/cisplatin/durvalumab beginning in October 2022 Enrolled on Ctx-[id number] clinical trial Follows with Dr. Pennington and Dr. Hernandez Chemotherapy induced neutropenia Peritoneal carcinoma Last infusion 10/14 HTN Surgical Appendectomy Cholecystectomy Allergies Reaction to Neulasta PCP: Dr Stanislav Gonzalez Onc: Dr Pennington, Dr Hernandez ROS Fever at 1:30am this morning No recent sickness No headache +SOB since starting chemo 1 year ago No chest pain + Loss of appetite combo chemo and pain + Nausea + vomiting 5-7x since 6pm last night, green in color, none before that Diarrhea since 10am this morning, no sick contacts No recent travel Active Home Medications Medication Sig Taking acetaminophen (TylenoL) 500 mg tablet Take 500 mg by mouth every 6 (six) hours as needed for pain. Yes amLODIPine (Norvasc) 10 mg tablet Take 1 tablet (10 mg total) by mouth daily. Yes bisacodyL (DULCOLAX) 10 mg suppository Insert 1 suppository (10 mg total) into the rectum daily as needed for constipation. Yes cholecalciferol (VITAMIN D3) 125 mcg (5,000 Unit) capsule Take 125 mcg by mouth every other day. Yes coenzyme Q10 (CO Q-10) 10 mg capsule Take 10 mg by mouth daily. Yes cyanocobalamin (VITAMIN B12) 1,000 mcg tablet Take 1,000 mcg by mouth every other day. Yes dexAMETHasone (DECADRON) 4 mg tablet Take 1 tablet (4 mg total) by mouth daily. Patient taking differently: Take 4 mg by mouth as needed for nausea or vomiting (Emergency supply 3tablets only if needed.). Yes docusate sodium (Colace) 100 mg capsule Take 200 mg by mouth daily. Yes fluticasone propionate (FLONASE) 50 mcg/actuation nasal spray Administer 2 sprays into each nostrildaily. Patient taking differently: Administer 2 sprays into each nostril daily. Daily prn Yes glucosamine sbx-[id number]-pmx 500-200-150 mg tablet Take 1 tablet by mouth daily. Yes HYDROmorphone (Dilaudid) 2 mg tablet Take 1 tablet (2 mg total) by mouth every 4 (four) hours as needed for pain Indication: Chronic Pain/Nonacute Pain. Yes lisinopriL 20 mg tablet Take 1 tablet (20 mg total) by mouth daily. Yes magnesium chloride (SLOW-MAG) 71.[address] tablet Take 1 tablet (71.5 mg total) by mouth as directed.Take 2 tabs in the morning and 1 tab in the evening. Do not crush or chew. Patient taking differently: Take 71.5 mg by mouth 2 (two) times a day before morning and evening meals. Take 2 tabs in the morning and 2 tab in the evening. Do not crush or chew. Yes ondansetron ODT (Zofran-ODT) 8 mg disintegrating tablet Dissolve 1 tablet (8 mg total) in the mouthevery 8 (eight) hours as needed for nausea or vomiting. Yes polyethylene glycol (MIRALAX) 17 gram/dose oral powder Take 17 g by mouth daily. Dissolve each 17 gdose in 240 mL (8 ounces) of beverage. Yes prochlorperazine (COMPAZINE) 10 mg tablet Take 1 tablet (10 mg total) by mouth every 6 (six) hours as needed for nausea or vomiting (unrelieved by ondansetron). Yes sennosides (senna) 8.6 mg tablet Take 1 tablet (8.6 mg total) by mouth 2 (two) times a day. Patient taking differently: Take 8.6 mg by mouth. Daily prn Yes tamsulosin (FLOMAX) 0.4 mg 24 hr capsule Take 1 capsule (0.4 mg total) by mouth daily. Patient taking differently: Take 0.4 mg by mouth every evening. Yes OBJECTIVE VITAL SIGNS Temperature: [37.7 ??C-39.4 ??C] 37.7 ??C Heart Rate: [92-138] 97 Resp Rate: [15-25] 20 Blood Pressure: (153-184)/(71-165) 153/71 SpO2: [91 %-94 %] 94 % Height: [182.8 cm] 182.8 cm Weight: [90.9 kg] 90.9 kg BSA (Calculated - sq m): [2.15 sq meters] 2.15 sq meters BMI (Calculated): [27.2 kg/m??] 27.2 kg/m?? Pulse Rate: [92-124] 92 PHYSICAL EXAMINATION General: Alert, interactive, cachectic, not in acute distress ENT: Hearing grossly intact. Lungs: breathing comfortably on room air Heart: Regular rate and rhythm. No murmurs appreciated. Abdomen: Soft, mildly distended, bowel sounds normoactive, mild tenderness to palpation RLQ and LLQ Mental: Mood and affect congruent. Alert and oriented. Attention intact. No evidence of disorganized thinking. 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 DIAGNOSTICS I have reviewed the labs and diagnostics from admission. ASSESSMENT / PLAN Mr. Sepulveda is hospitalized on [facility] Gastroenterology A for evaluation and management of Change Mental Status. He presented with symptoms of drowsiness, nausea, vomiting, diarrhea, fever, and tachycardia. Upon presentation to gastroenterology, he was hemodynamically stable and tachycardia resolved with fluids in the ED. He has a history of cholangiocarcinoma status post chemotherapy and currently enrolled in trial. Labs were significant for elevated transaminases. Ultrasound with difficult to visualize common bile duct and intrahepatic ducts. Differential most suggestive of cholangitis given patient's fever, tachycardia, and abdominal pain vs choledocholithiasis vs other infectious process. Dueto high suspicion for cholangitis, proceeded with ERCP on 10/22/23. Infectious workup also initiatedwith blood cultures and chest x ray which showed small left pleural effusion. Ordered GI pathogen panel given patient's recent diarrhea and vomiting. ERCP suggestive acute cholangitis from two partially occluded stents in the biliary tree which wereremoved and exchanged for two new stents in the left hepatic duct and right hepatic duct. # Change Mental Status # Metastatic Intrahepatic Cholangiocarcinoma # Leukopenia # Elevated transaminases # Elevated alkaline phosphatase # Cholangitis ERCP 10/21, follow-up findings/recommendations mIVF when return from ERCP Follow-up blood cultures from 10/21 F/up GI path panel Levofloxacin 500 PO x5 days # HTN Hold home amlodipine and lisinopril given concern for infection Baseline Mobility: BMAT Level 4 (Able to stand and walk) Diet: general diet Tubes/lines: PIV VTE prophylaxis: holding jv-procedure Code status: Prior Disposition: Home Milla Snyder M.D. PGY-1 Internal Medicine Pager # [phone] 10/22/23 Associated attestation - Ricki Navarro M.B., B.Chir. - 10/23/2023 11:56 AM CDT I saw and evaluated the patient, participating in the lee portions of the service. I reviewed the resident, Dr Snyder???s note. I agree with her findings and plan. Mr. Sepulveda is a 68-year-old man who came in with cholangitis in the setting of metastatic cholangiocarcinoma to the peritoneum and prior stenting. This diagnosed in 09/18/2022. He was due for stent exchange next week but started developed abdominal pain and nausea with feversassociated with some drowsiness. He underwent ERCP yesterday with stent exchange pus was noted. This morning he is feeling better. Still completely back to strength. Blood cultures are positive for Klebsiella. Physical examination chronically ill man good spirits. Abdomen is soft. Assessment/plan: #1 Acute cholangitis with Klebsiella bacteremia Mr. 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 The stents were exchanged successfully with plastic stents both in the left and right biliary ductal system. We will keep him on antibiotics. He will meet up with physical therapy. We will continue fluids. Wewill contact his local oncologist to inform her of the situation. We will arrange for repeat ERCP and stent exchange in 8 weeks. She can follow up with Dr. Hernandez int [facility] Metastatic cholangiocarcinoma with peritoneal metastases He is on experimental chemotherapy. Non-severe (moderate) Malnutrition The patient meets the ASPEN Criteria of malnutrition based on: Energy Intake: Less than or equal to 75% of estimated energy requirement for greater than or equal to 1 month Interpretation of Weight Loss: No Change Body Fat: Normal Muscle Mass: Mild Loss Fluid Accumulation: Absent Reduced Gut Dropper Strength: Other (Comment) (Fatigue and decreased activity) This is in the context of Chronic Illness. Malnutrition Present Upon Admission: Yes Agree with Registered Dietitian's assessment and treatment plan: documented in this encounter Procedure Notes * Donna Prince M.D., M.P.H. - 10/24/2023 10:51 AM CDTAssociated Order(s): Critical Care Procedure Critical Care Performed by: Donna Prince M.D., M.P.H. Authorized by: Donna Prince M.D., M.P.H. Critical care provider statement: Critical care total time (minutes): 30 Critical care time was exclusive of: separately billable procedures and treating other patients andteaching time CPR was performed on this patient: no Critical care was necessary to treat or prevent imminent or life-threatening deterioration of the following conditions: sepsis Critical care was time spent personally by me on the following activities: development of treatment plan with patient or surrogate, evaluation of patient's response to treatment, examination of patient, review of old charts, re- evaluation of patient's condition, pulse oximetry, ordering and review of radiographic studies, ordering and review of laboratory studies, ordering and performing treatments and interventions and obtaining history from patient or surrogate I assumed direction of critical care for this patient from another provider in my specialty: no Donna Prince M.D., M.P.H. 10/24/23 1051 documented in this encounter Consult Notes * Teressa Bauer P.T. - 10/24/2023 2:51 PM CDT Physical Therapy Inpatient Evaluation/Treatment SUBJECTIVE Patient's Name: Jorge Luis Sepulveda Referring/Attending Provider: Ricki Navarro M.B. Reason for Referral: Physical Therapy Evaluate and Treat Pertinent Medical / Surgical History: Jorge Luis Sepulveda has a past medical history of Acute Cystitis Without Hematuria, Neutropenia Chemotherapy Induced (HCC), and Thrombocytopenia Drug Induced. Jorge Luis Sepulveda has a past surgical history that includes Appendectomy (1967); [place] tooth extraction (1976); Gallbladder surgery (1983); Spermatocelectomy (1998); Subdural hematoma evacuation via craniotomy (2010); Repair of Eyelid (2011); and Diagnostic Laparoscopy (N/A, 01/09/2023). History of Present Illness: Jorge Luis Sepulveda is a 68 y.o. male who was admitted to [facility] in [place] on 10/22/2023 for Change Mental Status [R41.82] Retention Urinary [R33.9] Sepsis (HCC) [A41.9] Elevated Liver Function Test [R79.89] Cholangitis Acute (HCC) [K83.09]. Relevant Medical History: Hypertension, neuropathy, gallbladder cancer Precautions Other Precautions: fall, neuropathy in his feet/calves RST PT/OT Falls screen: Fall in the last 12 months: No Are you fearful of falling: No Home Living and Equipment: Lives with: Spouse/Significant other Receives help from: Family, Spouse/Significant other, and Friend(s), Daughter Charito lives in [place], [place] and son lives in [facility]. Type of Home: House Home Layout: One Level + basement Home Access: Stairs to enter: Number of steps: 2-3, patient has 2 steps through the front door with railing and 3 steps in the garage without rail. : unilateral handrail, no handrails Stairs to alternate level: Number of steps: 12, Railing: unilateral handrail Bathroom Accessibility: Accessible via walker Shower: Tub/Shower Level: Main Floor Bathroom Equipment: To have grab bars installed he does have a tub bench Toilet: Standard Toilet Level: Main Floor Toilet Equipment: To have grab bars installed Assistive Device Owned: Front wheeled walker Prior Level of Function and Mobility: Functional Mobility: Independent, Modified Independent, in the daytime patient does not use an assistive device at night uses a front wheeled walker Basic Activities of Daily Living: Independent Modified Independent Instrumental Activities of Daily Living: Independent , patient states he was quite active before his illness Driving: Yes 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 OBJECTIVE Vital Signs: Vitals taken during session: Pulse rate: Eighty-three bpm, Blood pressure: 162/80 mmHg, and O2 saturation: 98% Evaluation Assessments: Strength: Upper extremities within functional limits Lower extremities within functional limits Range of Motion: Upper extremities within functional limits Lower extremities within functional limits Balance: Static Sitting: Good (Maintains balance without support) Dynamic Sitting: Good (Maintains balance without support) Static Standing: Fair (Maintains balance with handheld assist) Dynamic Standing: Fair (Maintains balance with handheld assist) Activity Tolerance: Endurance: Tolerates 10-20 minutes of activity Sitting Tolerance: good in chair Standing Tolerance: <10 with front wheeled walker Sensation/Perception: Sensation: Impaired light touch, Location: Bilateral feet ankles and up to mid calf numb. Has had extensive testing without cause found. With addition of chemo he has had increased neuropathy. Outcome Measures: -[facility] Inpatient Short Form: AM-PAC Basic Mobility (V.2) How much help from another person do you currently need???If the patient hasn't done an activity recently, how much help from another person do you think he/she would needif he/she tried? 1. Turning from your back to your side while in a flat bed without using bedrails?: None 2. Moving from lying on your back to sitting on the side of a flat bed without using bedrails?: None 3. Moving to and from a bed to a chair (including a wheelchair)?: None 4. Standing up from a chair using your arms (e.g., wheelchair, or bedside chair)?: None 5. To walk in hospital room?: A Little 6. Climbing 3-5 steps with a railing?: A Little AM-PAC Basic Mobility (V.2) Raw Score: 22 AM-PAC Basic Mobility (V.2) Standardized Score: 47.4 Interpretation: Based on scoring guidelines using the raw score value: Those going to home had an average score at or above 18 Those going to facility had an average score at or below 17 Clinicians answer the AM-PAC Inpatient Short Form based on observed patient activity and/or clinical judgment (ie. patient can be scored without physically performing each activity) Therapeutic Interventions: SIT TO STAND: Assistance Level: Modified Independent, Supervision of 1 Device: gait belt and front wheeled walker Surface: Chair Assistance/Cueing: verbal for Anterior weight shifting and Terminal hip extension Delivery: assessed STAND TO SIT: Assistance Level: Modified Independent, Supervision of 1 Device: gait belt and front wheeled walker Surface: Chair Assistance/Cueing: verbal for Alignment with seated surface and Upper extremity placement Delivery: instructed and assessed GAIT: Distance: 70 meters Assistance Level:Modified Independent, Supervision of 1 Device: gait belt and front wheeled walker Quality: decreased gait speed, decreased heel strike, decreased step length, decreased toe off, steady Assistance/Cueing:tactile for Placement within the walker and Upright posture Delivery: assessed and facilitated Comments: Patient able to ambulate down the tom and back with front wheeled walker. He did admit to fatigue assisted therefore we returned to his chair. His and daughter supervised him getting in and out of a flat bed without rails and said he did fine. Therapeutic exercise: Lying, seated, standing lower extremity exercises add weights as needed. Balance exercises were given via [place] Access Code: [email or web address] URL: [email or web address] Date: 10/24/2023 Prepared by: Teressa Bauer Exercises - Single Leg Stance - 1 x daily - 5 x weekly - 1 sets - 2 reps - Single Leg Balance on Foam Pad - 1 x daily - 5 x weekly - 1 sets - 2 reps - Tandem Stance - 1 x daily - 5 x weekly - 1 sets - 2 reps - Standing with Feet Together on Foam Pad (BKA) - 1 x daily - 5 x weekly - 1 sets - 2 reps - Lower Quarter Reach Combination - 1 x daily - 5 x weekly - 1 sets - 2 reps - Standing with Head Rotation - 1 x daily - 5 x weekly - 1 sets - 2 reps Education: The patient/family educated on safe transfer techniques with functional mobility/activity. The patient's status was discussed and the following coordination of care occurred with the RN and Family/Caregiver Family/Caregiver Present: Wilfredo and daughter Charito Patient was left patient lounge recliner at end of session with call light in reach, all needs met and questions answered. Assessment Discharge Therapy Needs - PT: No further skilled therapy If skilled therapy is recommended, skilled therapy can include physical therapy provided by home health, outpatient clinic, or a post-acute facility. The location of these services is determined by the patient's care team in partnership with patient/family. Level of Care Needed - PT: Assistance with transfers (Comment), Assistance with walking and moving around the home, Assistance with stairs, Physical assistance needed Patient has front wheeled walker, four-wheeled walker and possibly tub bench (they were lent equipment from friends). Son/friend to install grab bars for stairs, shower and toilet. Barriers to Discharge Home: Fall risk From a physical therapy perspective, the level of care above has been recommended for Mr. Sepulveda after hospital discharge. This level of care is based on his functional abilities during today's session. This may change throughout the hospital course and will be updated as appropriate. Clinical Impression: Patient is a 68 year male with history of gallbladder cancer and cholangitis. Patient had 2 stents replaced this hospitalization due to blockage. Patient is fatigued from his cancer and chemo and recent blockage. He has good baseline strength but is lacking endurance at this time. Patient was able to ambulate 70 m with front wheeled walker and appears functionally safe to return home with his and daughter. He was given lower extremity exercises and balance exercises. Currently, patient presents with increased pain and decreased activity tolerance resulting in the following impaired gait and impaired ability to complete stairs. No further skilled therapy needed atthis time. Physical therapy treatment is medically necessary to restore and maximize function, maximize safetyand facilitate discharge to home, teach and educate the patient and/or caregivers. Progress: Improving as expected Plan PT Plan Comments: Patient is functional to return home with and daughter. Was given home exercise program to strengthen and balance and return to previous function. Functional Goals: PT Inpatient Goals PT Goal #1: Assess safety to return home with and daughter. PT Goal #1 Status: Achieved Jorge Luis Sepulveda has Good rehab potential to meet the expected outcomes in a reasonable period of time. Treatment Plan: Plan: Discontinue PT PT Frequency: One-time visit PT Inpatient Duration : Until goals are met or hospital discharge Requires Inpatient Follow-Up: No Patient agrees with the plan of care and goals. Treatment interventions may include: Tiered PT Evaluation Codes: Comorbid Conditions: Cardiopulmonary disease, Cancer (Neuropathy in Lower extremities) Personal Factors: Age, Balance impairment, Emotional status, Needs assistive device Examination elements: 3 Clinical Presentation: Evolving Clinical Decision Making: Low complexity clinical decision making Billing: Time Spent with Patient Evaluations PT Eval - Low Complexity: 15 min Therapeutic Interventions Therapeutic Activity (min): 25 min Therapeutic Exercise (min): 10 min Time Tracking Total Timed Units (min): 35 min Total Treatment Time (min): 50 min Cynthia Bauer P.T. * Hansa Pickens - 10/23/2023 11:57 AM CDTAssociated Order(s): IP CONSULT TO DIETITIAN Clinical Nutrition: Initial Assessment Clinical Nutrition was requested to evaluate patient for positive nursing baseline nutrition screenwith a MST score of 2 or greater SUBJECTIVE Mr. Sepulveda is a 68 y.o. male admitted for generalized weakness, lower abdominal pain, AMS Nutrition related medical/surgical history: Cholangiocarcinoma, Chemotherapy, anemia, hypercholesteremia, Chemo induced Neutropenia, Cystitis Completed visit with patient and family today as part of face to face care. Current Nutrition (since admission): The pt stated that his breakfast this morning was the first meal he has had in 30 hours. He reported that he did not have much of an appetite, however he was ableto consume about 75% of his breakfast (100% cream of wheat, montemayor, canadian muffin w/ egg, and milk;50% of a blueberry muffin, 0% jello, pudding, coffee). 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 The pt was agreeable to trying a vanilla carnation instant breakfast with breakfast and a tropical smoothie as an afternoon snack to increase his calorie and protein intake while in the hospital. Nutrition history: Pt was diagnosed with choliangiocarcinoma in August of 2022. Pt reported consuminga regular diet of a varitey of foods prior to diagnosis. He stated that he started to have decreased appetite when he started chemotherapy and further reduced appetite and intake when he start a clinical trial drug in May 2023. He stated that he could only eat about a half of a meal and he would have to force himself to eat it. He experiences nausea with eating a changes in taste. The 3-4 days prior to being admitted to the hospital he reported very minimal intake and vomitting started on Saturday. He has tried Ensure and Premier Protein ONS in the past and he is tired of how those taste. Pt reported taking vitamin D, vitamin B12, CoQ10, MgCl at home. Food Allergies: NKFA Chewing/Swallowing Issues: None reported OBJECTIVE Current nutrition orders: Dietary Orders (From admission, onward) Start Ordered 10/23/23 07 Adult Diet Regular (Adult Diet) Diet effective now Question: Diet texture: Answer: Regular 10/23/23719 Pertinent Labs: Last 2 results Lab Units 10/23/23 0022 10/22/23 0413 10/21/231957 POTASSIUM mmol/L 4.3 -- -- POTASSIUM P mmol/L -- 4.5 4.8 BUN P mg/dL -- BUN mg/dL 28* -- -- CALCIUM P mg/dL -- 8.3* 8.3* CALCIUM mg/dL 7.8* -- -- CREATININE mg/dL 1.71* 1.40* 1.24 GI Function: Last BM Date: 10/23/23, [place] Stool Chart: Type 6: Fluffy pieces with ragged edges, a mushy stool, Passing Flatus: Yes Medications: Scheduled Meds:acetaminophen, 500 mg, oral, 4x Daily [Held by provider] amLODIPine, 10 mg, oral, Daily cholecalciferol, 25 mcg, oral, Daily cyanocobalamin, 1,000 mcg, oral, Every Other Day heparin (porcine), 5,000 Units, subcutaneous, Q8H ENRIQUE [Held by provider] lisinopriL, 20 mg, oral, Daily sennosides-docusate sodium, 1 tablet, oral, BID sulfamethoxazole-trimethoprim, 1 tablet, oral, Q12H ENRIQUE Anthropometrics: Height: 185.4 cm Admission Weight: 90.9 kg (10/22/2023) Current Weight: 90.2 kg (10/22/2023) BMI (Calculated): 26.2 kg/m?? Weight change since admission: -0.7 kg Net IO Since Admission: 515 mL [10/23/23 1158] Weight history: Wt Readings from Last 12 Encounters: 10/22/23 90.2 kg 10/21/23 90.9 kg 10/15/23 89.1 kg 10/08/23 89.6 kg 10/01/23 90 kg 09/24/23 88.6 kg 09/17/23 89.1 kg 09/10/23 90.3 kg 09/03/23 90.7 kg 08/28/23 89 kg 08/27/23 89 kg 08/20/23 88.6 kg Weight Change History: Pt reported his UBW prior to chemotherapy to be 212 lbs (96 kg), during therapy he weighed 195-200 lbs (88 -91 kg). Per EMR the pt has had fluctuations in weight over the past year. His lowest weight was 81.7 kg (01/09/2023) and has since been trending up maintianing a 3 kg (3%) variation of the past 6 months. Estimated Needs: Total Calorie Needs: 2255 - 2705 calories/day Method to Estimate Energy Needs: kcal/kg (25-30 kcal/kg) Weight Used for Equation Calculations: 90.2 kg Total Protein Needs: 108 - 135 grams/day (Method to Estimate Protein Needs (g/kg): 1.2 - 1.5 gm/kg) Weight Used to Calculate Protein Needs (Kg): 90.2 kg Nutrition Diagnosis: Malnutrition (undernutrition) related to decreased appetite in the setting of chemotherapy as evidenced by Pt report of decreased intake over the past month and mild muscle losses Malnutrition Assessment: ASPEN Criteria of Malnutrition: Nutritional Status: Non-severe (moderate) Malnutrition Malnutrition in the Context of: Chronic Illness Based on: Energy Intake: Less than or equal to 75% of estimated energy requirement for greater than or equal to 1 month Interpretation of Weight Loss: No Change Body Fat: Normal Muscle Mass: Mild Loss Fluid Accumulation: Absent Reduced Gut Dropper Strength: Other (Comment) (Fatigue and decreased activity) ASSESSMENT / PLAN ASPEN Criteria Malnutrition Status: Non-severe (moderate) Malnutrition Nutrition Intervention: Interventions: Increase nutrient intake with small, frequent meals and/or snacks, Medical food supplement, Vitamin and mineral supplements. Recommendations: RDN to order vanilla CIB with whole milk for breakfast and Tropical Smoothie for afternoon snack. Continue supplementing vitamin D and vitamin B12. Monitoring/Evaluation: Nutrition parameter to monitor: Meals/Supplement Intake, Weight Status, Comparative Standards, Pertinent Labs, Nausea/Vomiting/Diarrhea Desired Outcome: Consume adequate nutrition orally Patient Goal(s): Consume >75% of 3 or more meals daily, Consume >75% of 2 oral nutrition supplements daily, and Maintain weight Clinical Nutrition will continue to follow. For questions about patient's nutritional care please contact pager [phone] on weekdays 07:30-16:00 or [phone] on weekends/holidays ([facility]). * Shaq Alonso, RHoldenN. - 10/23/2023 10:21 AM CDTAssociated Order(s): IP CONSULT TO CARE MANAGEMENT Discharge Planning Assessment SUBJECTIVE Assessment Information Referral Source: Early Screen for Discharge Planning Referral Reason: Discharge Planning Primary Language: Mauritanian [employer] Services Used: No Person(s) present during interview: Person(s) Present During Interview: patient and spouseJan History of Present Illness #1 Change Mental Status Social History Marital Status: Family / Household: Self, Spouse Finance/Insurance Primary insurance: [facility] MEDIC[facility] PL[facility] PPO Secondary insurance: N/A benefits: No Advance Directives Legal Decision Maker: Self Advance Directives: Advanced Care Plan Advance Directives Status: Not Activated OBJECTIVE Baseline Functional Status Baseline Activities of Daily Living Mobility: Independent, Requires aide of device Dressing: Independent Feeding: Independent Bathing: Independent Grooming: Independent Toileting: Independent Behavior: Appropriate, Pleasant, Calm, Cooperative, Oriented Communication: Can write, Talks, Understands speaking, Understands Mauritanian, Reads Shopping: Independent Medication Management: Independent Housekeeping: Independent Meal Prep: Independent Assistive Devices: Walker - front wheeled Transportation: Support from family Managing Finances: Independent Baseline Services/Resources Primary care clinic and provider: Mark Colorado M.D. Additional Resources: N/A Anticipated Needs Functional Status: None Assistive Devices: None Anticipated Modifications to the Patient's Home: None Transportation Needs: Support from family Does the patient need discharge transport arranged?: No Anticipated Discharge Destination: Home or Self Care ASSESSMENT / PLAN Assessment: The encephalographer met with Jorge Luis Sepulveda to discuss his current hospitalization and home going needs. The patient was accompanied by , Wilfredo . The patient was was a reliable historian. The role of encephalographer was reviewed. The patient and patient's reviewed his prior level of care and support system. The patient receives support from his and children. The patient described his living environment as a multiple level home with stairs to enter with rails. Housekeeping, grocery shopping, meal prep, and other household responsibilities have previously been completed by patient and patient's . encephalographer discussed the patient's potential needs at dismissal based on their home setting, previous needs and responsibilities, homebound status, and relevant assessments with the patient and patient's . The patient will be safe and supported to return home with spouse/S.O. when medically ready. Support will be provided by the patient's . The patient demonstrated understanding when discussing his home going plans and anticipated needs. The patient reports living in a ranch style home with his . There are 2 steps up to enter the home. The patient is independent with all ADLs. The patient uses a walker at night. The patient has advanced directives, and denies financial concerns at this time. The patient's and daughter willprovide transportation upon discharge. At this time, the care team has not identified any skilled post-hospital discharge care needs that require the assistance of the Care Management Team. After reviewing the patient's chart and meeting with the patient, the encephalographer deemed the LACE+/readmission questions were not necessary. The patient reports understanding that he will dismiss from the hospital when medically stable. Pending hospital course and medical readiness, no barriers to dismissal have been identified at this time. Plan: The patient agrees with the following plan. Patient's anticipated discharge disposition is: Home to Self Care Transportation upon dismissal will be provided by family--/Daughter . encephalographer recommended None . encephalographer provided information regarding the dismissal process. encephalographer placed or requested the following hospital-based consult orders and/or referrals: None. encephalographer will continue to assess for homegoing needs with the interdisciplinary team. encephalographer encouraged the patient to reach out with any questions/concerns. Signed by: Shaq Alonso R.N. 10/23/2023 documented in this encounter ED Notes * Anna Brown P.A.-C., M.S. - 10/22/2023 7:56 AM CDT Care of patient transferred to ut by Dr. Prince. Disposition pending admission. Patient with a PMH including metastatic intrahepatic cholangiocarcinoma presents with worsening abdominal pain. Concern for cholangitis. Heart rate improved with fluids. Zosyn given. VITAL SIGNS BP (!) 166/77 Pulse 95 Temp (!) 38.8 ??C (Oral) Resp 21 Ht 182.8 cm Wt 90.9 kg SpO2 92% BMI 27.20 kg/m?? ED Course as of 10/22/23 0825 e Oct 22, 2023 0752 Handoff with GI team for admission. 0825 Pulse Rate: 92 Final Diagnoses: as of 10/22/23 0825 Change Mental Status Sepsis (HCC) Elevated Liver Function Test Retention Urinary Anna Brown P.A.-C., M.S. 10/22/23 0758 * Donna Prince M.D., M.P.H. - 10/22/2023 7:51 AM CDT SUBJECTIVE CHIEF COMPLAINT/REASON FOR VISIT Altered Mental Status HISTORY OF PRESENT ILLNESS History provided by: Patient REVIEW OF SYSTEMS OBJECTIVE Initial Vitals Temperature 10/22/23 0313 (!) 39.4 ??C Pulse Rate 10/22/23 0313 (!) 116 Heart Rate 10/22/23 0315 (!) 120 Resp Rate 10/22/23 0313 21 Blood Pressure 10/22/23 0313 (!) 181/93 SpO2 10/22/23 0313 91 % Pain Score 10/22/23 0740 4 PHYSICAL EXAMINATION ASSESSMENT/PLAN Patient is a 68-year-old male with peritoneal carcinomatosis, metastatic intrahepatic cholangiocarcinoma, currently in a clinical trial for medication and presents to the Emergency Department with altered mental status. He does have a history of drug-induced thrombocytopenia and neutropenia. Patient was alert on his examined protecting his airway. However he was confused, febrile, and tachycardic. I was concerned for early sepsis. Blood cultures were sent. IV fluids and Zosyn were initiated andwe are concerned particularly for cholangitis. Antibiotics were targeting this infection. Patient does have a stent in place that may be triggering his infection. We discussed the patient with GI. Hewill be admitted for further evaluation and care. Patient's vital signs improved and he was able scott admitted to the floor while here in the emergency department as he responded well to sepsis treatment. ED Course as of 10/22/23 0751 e Oct 22, 2023 0658 IMPRESSION: Redemonstration of biliary stents and pneumobilia, as seen on recent CT abdomen and pelvis. Common bile duct not well visualized secondary to shadowing. Final Diagnoses: as of 10/22/23 075 Change Mental Status Sepsis (HCC) Elevated Liver Function Test Retention Urinary Care Handoff Row Name 10/22/23 0749 Care Handoff Type of Handoff Admission handoff I have personally seen and examined this patient. I have fully participated in the care of this patient. I have reviewed all clinical information including history, physical exam, orders, and plan. Iagree with the note of the resident with the following exceptions: or as stated in chart. I personally performed the substantive portion of this service which was medical decision-making. Pertinent MDM details included below. Refer to the BOILER TUBE BLOWER/PA???s note for additional details. I did not supervise PA portion of this encounter Donna Prince M.D., M.P.H. 10/24/23 1051 Donna Prince M.D., M.P.H. 10/24/23 1051 * Hansa Conrad M.D., M.S. - 10/22/2023 5:15 AM CDT SUBJECTIVE CHIEF COMPLAINT/REASON FOR VISIT Altered Mental Status HISTORY OF PRESENT ILLNESS 68 y/o M w/ hx of peritoneal carcinomatosis, metastatic intrahepatic cholangiocarcinoma enrolled onthe CTX-009 clinical trial and was randomized to the paclitaxel control arm with last treatment about a week ago, drug-induced thrombocytopenia and neutropenia, generalized weakness, anemia, presenting for evaluation of AMS. Prior to presentation to [place] ED, patient was seen in [facility] ED with complaints of lower abdominal pain, nausea, and vomiting. See their note for full history. At outside ED, he was given IV fluids, Zofran for nausea, fentanyl for pain. His symptoms improved. They also obtained a CT of the abdomen that showed stable mild intrahepatic biliary ductal dilatationwith biliary stents in satisfactory position. Ultimately patient's symptoms improved, he felt better, he was sent home. says when he returned home, he continued to be weak and vomit. He woke up in the night vomiting and she decided to call EMS to bring patient to our ED. EMS also reports shortepisodes of confusion/AMS. REVIEW OF SYSTEMS See HPI. OBJECTIVE Initial Vitals Temperature 10/22/23 0313 (!) 39.4 ??C Pulse Rate 10/22/23312 (!) 116 Heart Rate 10/22/23 0315 (!) 120 Resp Rate 10/22/233 21 Blood Pressure 10/22/23 031 (!) 181/93 SpO2 10/22/23312 91 % Pain Score -- PHYSICAL EXAMINATION Constitutional: Nursing note and vitals reviewed. No distress. HENT: Head: Normocephalic and atraumatic. Mouth/Throat: Mucous membranes are dry. Cardiovascular: Regular rhythm. Tachycardia present. Pulses are strong and palpable. Capillary refill: takes 3-5 seconds Pulmonary/Chest: Effort normal and breath sounds normal. No tachypnea. No respiratory distress. Abdominal: Soft. Bowel sounds are normal. exhibits distension. Neurological: Alert. Skin: He is diaphoretic. ASSESSMENT/PLAN Assessment and Plan Jorge Luis Sepulveda is a 68 y.o. male who presented with AMS, fever, tachycardia. This was considered inthe context of past medical history as noted in the HPI. On initial evaluation patient was found alert and responsive and was noted to be sitting up in bed and unwell appearing. Triage vital signs were reviewed and notable for tachycardia to 120s. Nursing documentation was reviewed and considered. Initial symptom management: IV fluids, Zosyn Differential diagnosis includes but is not limited to cholangitis, choledocholithiasis, SBP, bacteremia, sepsis, pneumonia, UTI, other infectious process, viral illness, neutropenia Work-up: Labs, RUQ ultrasound. See ED course for results and updates. I reviewed today's ED visit with patient and answered all questions to the best of my ability. I discussed plans for admission with patient and they are on board with plan. Will discuss pt's ED course with admitting provider. . I reviewed the following external records: outside ED records. ED Course as of 10/22/23 0737 SatOct 22, 2023 0337 Weak Vomiting Fatigue 0503 Microscopic Automated: Microscopy Normal RBC <3 WBC None Seen 0503 Influenza A, B, RSV, PCR, Rapid: Influenza A, PCR, Rapid, V Negative Influenza B, PCR, Rapid, V Negative Resp Synctial Virus, PCR, Rapid Negative Specimen Source Swab, Nasopharynx 0536 Platelet Count(!): 122 0536 Leukocytes(!): 2.4 0536 Lymphocytes(!): 0.12 0536 Neutrophils: 1.98 0536 Hemoglobin(!): 9.4 0536 Hematocrit(!): 28.9 0536 Bicarbonate, P(!): 21 0536 Creatinine(!): 1.40 0536 Urinalysis, with Microscopic: Urine, Midstream(!): Source Urine, Urine, Midstream Color, U Yellow Clarity Clear Protein, U 23 Protein/Osmolality 0.48(!) Predicted 24 HR Protein, U 472(!) Predicted Range 150-1486 0536 Hemoglobin, QL(!): Trace 0536 Leukocyte Esterase: Negative 0536 SARS CoV-2, PCR, Rapid, V: Undetected 0537 Influenza A, B, RSV, PCR, Rapid: Influenza A, PCR, Rapid, V Negative Influenza B, PCR, Rapid, V Negative Resp Synctial Virus, PCR, Rapid Negative Specimen Source Swab, Nasopharynx 0537 Microscopy: Normal 0537 RBC: <3 0537 WBC: None Seen 0655 Aspartate Aminotransferase (AST), S(!): 165 0655 Alanine Aminotransferase (ALT), S(!): 121 0655 Alkaline Phosphatase, S(!): 334 0655 Albumin, S(!): 3.3 0655 US Gallbladder and or Biliary Ducts IMPRESSION: Redemonstration of biliary stents and pneumobilia, as seen on recent CT abdomen and pelvis. Common bile duct not well visualized secondary to shadowing. 0655 DX Chest AP or PA and Lateral 2 Views IMPRESSION: Since 11/22/2022, new small left pleural [...] quadrant. Biliary stent in the upper abdomen. 07 Discussed with hepatobiliary fellow. ERCP with stent exchange ordered. Final Diagnoses: as of 10/22/23 0737 Change Mental Status Sepsis (HCC) Elevated Liver Function Test Retention Urinary I discussed the management of the patient with: Hepatobiliary fellow. Hansa Ye M.D., M.S. Resident 10/22/23 0737 documented in this encounter Miscellaneous Notes * Hospital Course - Roger, Chito Torrez M.D. - 10/23/2023 2:23 PM CDT Mr. Jorge Luis Sepulveda is a 68-year-old man admitted on 10/22/2023 for cholangitis in the setting of metastatic cholangiocarcinoma. As noted above, medical history is notable for cholangiocarcinoma with metastases to the peritoneum and prior stenting. This was diagnosed in September 18, 2022. Patient was due for a stent exchange in late September. Prior to this, he developed abdominal pain and nausea with fevers and some associated drowsiness. Blood cultures were notable for Gram-negative bacteremia, and patient was placed on IV antibiotics (initially Zosyn, transitioned to Bactrim after 2 days in light of sensitivities). He underwent ERCP on 10/22/23; this revealed acute cholangitis from 2 partially occluded stents in the biliary tree. These were removed and exchanged for 2 new stents (temporary plastic stents placed in the left hepatic duct and right hepatic duct respectively). A prior biliary sphincterotomy appeared open, the biliary tree was swept and debris, sludge, and pus was found. On 10/23, patient was tolerating oral intake, ambulating well, and hemodynamically stable. Follow-up ERCP was planned for 8-10 weeks after discharge. Patient will continue a course of Bactrim through10/27. Recommend he follow-up with PCP within a week of discharge to recheck electrolytes, particularly potassium and creatinine. documented in this encounter Plan of Treatment Upcoming Encounters Date Type Department Care Team (Latest Contact Info) Description 11/07/2023 3:15 PM CDT Clinical Communication Virtual Review in [address] [phone] 11/15/2023 6:40 AM CDT Lab Department of Laboratory Medicine and Pathology, [facility], in [address] [phone] Loyda Lennon M.D. [address] [place] [phone] 11/15/2023 8:20 AM CDT Office Visit Department of Oncology in [address] [phone] Manjit Velasquez APRN, C.N.P., D.N.P. [address] [place] [phone] 11/15/2023 9:30 AM CDT Comprehensive Visit Department of Palliative Care in [address] [phone] Patty Gomez, KAYLEE, C.N.P., M.S.N. [address] [place] [phone] 11/15/2023 2:15 PM CDT Infusion Department of Oncology in [address] [phone] Loyda Lennon M.D. [address] [place] [phone] 11/22/2023 7:30 AM CDT Lab Department of Oncology in [place], [place] [address] [place] [phone] Loyda Lennon M.D. [address] [place] [phone] 11/22/2023 8:45 AM CDT Infusion Department of Oncology in [place], [place] [address] [place] [phone] Loyda Lennon M.D. [address] [place] [phone] 11/28/2023 3:30 PM CDT Clinical Communication Virtual Review in [place], [place] 200 [place] [address] 11/29/2023 9:00 AM CDT Procedure visit Department of Urology in [place], [place] [address] [place] [phone] Mark Colorado M.D. [address] [place] [address] [place] [phone] 11/29/2023 11:20 AM CDT Lab Department of Laboratory Medicine and Pathology, [facility], in [place], [place] [address] [place] [phone] Loyda Lennon M.D. [address] [place] [phone] 11/29/2023 11:30 AM CDT Lab Department of Oncology in [place], [place] [address] [place] [phone] Loyda Lennon M.D. [address] [place] [phone] 11/29/2023 1:00 PM CDT Infusion Department of Oncology in [place], [place] [address] [place] [phone] Loyda Lennon M.D. [address] [place] [phone] 12/03/2023 1:45 PM CDT Comprehensive Visit Department of Urology in [place], [place] [address] [place] [phone] Mona Egan P.A.-C. [address] [place] [phone] 12/05/2023 1:20 PM CDT Comprehensive Visit Department of Oncology in [place], [place] [address] [place] [phone] Letty Kate M.D. [address] [place] [phone] 12/10/2023 3:00 PM CDT Clinical Communication Virtual Review in [place], [place] 200 [place] [address] 12/10/2023 3:30 PM CDT Procedure visit Department of Urology in [place], [place] [address] [place] [phone] Mark Colorado M.D. [facility] [place] [phone] 12/12/2023 3:45 PM CDT Appointment Department of Radiology, [facility], in [place], [place] [address] [place] [phone] Na Hernandez M.D., Ph.D. [address] [place] [phone] 12/13/2023 6:00 AM CDT Lab Department of Laboratory Medicine and Pathology, [facility], in [place], [place] [address] [place] [phone] Loyda Lennon M.D. [address] [place] [phone] 12/13/2023 6:20 AM CDT Lab Department of Infusion Therapy in [place], [place] [address] [place] [phone] Loyda Lennon M.D. [address] [place] [phone] 12/13/2023 11:10 AM CDT Office Visit Department of Oncology in [place], [place] [address] [place] [phone] Na Hernandez M.D., Ph.D. [address] [place] [phone] 12/13/2023 1:00 PM CDT Infusion Department of Oncology in [place], [place] [address] [place] [phone] Loyda Lennon M.D. [address] [place] [phone] 12/20/2023 9:20 AM CDT Lab Department of Infusion Therapy in [address] [phone] Loyda Lennon M.D. [address] [place] [phone] 12/20/2023 10:30 AM CDT Infusion Department of Oncology in [place], [place] [address] [place] [phone] Loyda Lennon M.D. [address] [place] [phone] 12/25/2023 10:30 AM CDT Appointment Division of Gastroenterology in [address] [phone] Na Hernandez M.D., Ph.D. [address] [place] [phone] 12/27/2023 10:15 AM CDT Lab Department of Oncology in [place], [place] [address] [place] [phone] Loyda Lennon M.D. [address] [place] [phone] 12/27/2023 10:30 AM CDT Lab Department of Laboratory Medicine and Pathology, [facility] in [place], [place] [address] [place] [phone] Loyda Lennon M.D. [address] [place] [phone] 12/27/2023 11:45 AM CDT Infusion Department of Oncology in [place], [place] [address] [place] [phone] Loyda Lennon M.D. [address] [place] [phone] 01/03/2024 1:00 PM CDT Clinical Communication Virtual Review in [address] [phone] 01/10/2024 8:00 AM CDT Lab Department of Infusion Therapy in [place], [place] [address] [place] [phone] Loyda Lennon M.D. [address] [place] [phone] 01/10/2024 8:20 AM CDT Lab Department of Laboratory Medicine and Pathology, [facility] in [place], [place] [address] [place] [phone] Loyda Lennon M.D. [address] [place] [phone] 01/10/2024 10:30 AM CDT Office Visit Department of Oncology in [place], [place] [address] [place] [phone] Na Hernandez M.D., Ph.D. [address] [place] [phone] 01/10/2024 11:45 AM CDT Infusion Department of Oncology in [place], [place] [address] [place] [phone] Loyda Lennon M.D. [address] [place] [phone] 01/17/2024 8:45 AM CDT Lab Department of Oncology in [place], [place] [address] [place] [phone] Loyda Lennon M.D. [address] [place] [phone] 01/17/2024 10:00 AM CDT Infusion Department of Oncology in [place], [place] [address] [place] [phone] Loyda Lennon M.D. [address] [place] [phone] 01/24/2024 8:00 AM CDT Lab Department of Laboratory Medicine and Pathology, [facility], in [place], [place] [address] [place] [phone] Loyda Lennon M.D. [address] [place] [phone] 01/24/2024 8:15 AM CDT Lab Department of Oncology in [place], [place] [address] [place] [phone] Loyda Lennon M.D. [address] [place] [phone] 01/24/2024 9:15 AM CDT Infusion Department of Oncology in [place], [place] [address] [place] [phone] Loyda Lennon M.D. [address] [place] [phone] Scheduled Procedures Name Priority Associated Diagnoses Date/Ti me HEPATECTOMY RESECTION LIVER Cholangiocarcinoma (HCC) ULTRASOUND LIVER Cholangiocarcinoma (HCC) RECONSTRUCTION PORTAL VEIN Cholangiocarcinoma (HCC) Scheduled Referrals Name Type Priority Associated Diagnoses Orde r Schedule Non-[facility] Referral Outpatient Referral Routine Weakness General Anemia Chemotherapy Induced Ordered: 10/24/2023 documented as of this encounter Procedures Procedure Name Priority Date/Time Associated Diagnosis Comments CRITICAL CARE Routine 10/24/2023 10:51 AM CDT DIPSTICK, U Routine 10/24/2023 9:36 AM CDT MICROSCOPIC AUTOMATED Routine 10/24/2023 9:36 AM CDT PH, U Routine 10/24/2023 9:36 AM CDT OSMOLALITY, U Routine 10/24/2023 9:36 AM CDT URINALYSIS WITH MICROSCOPIC Routine 10/24/2023 9:36 AM CDT CBC WITH DIFFERENTIAL, B Routine 10/24/2023 12:34 AM CDT BASIC METABOLIC PANEL, S/P Routine 10/24/2023 12:34 AM CDT GI PATHOGEN PANEL, PCR, F Routine 10/23/2023 2:57 PM CDT CBC WITH DIFFERENTIAL, B Routine 10/23/2023 12:22 AM CDT BASIC METABOLIC PANEL, S/P Routine 10/23/2023 12:22 AM CDT FL FLUORO LESS THAN 1 HOUR RAD - Routine (most inpatients and all outpatients) 10/22/2023 2:02 PM CDT GLUCOSE POCT, B Routine 10/22/2023 1:09 PM CDT ERCP Routine 10/22/2023 12:50 PM CDT ERCP Routine 10/22/2023 12:50 PM CDT PROTHROMBIN TIME (PT), P Timed 10/22/2023 12:30 PM CDT US GALLBLADDER AND OR BILIARY DUCTS RAD - Semiurgent (Fast; most ED patients; some inpatients) 10/22/2023 6:29 AM CDT HEPATIC FUNCTION PANEL, S STAT 10/22/2023 5:59 AM CDT BACTERIA / MARIAM CULTURE, BLOOD STAT 10/22/2023 4:20 AM CDT LACTATE FOR SEPSIS WITH REFLEX, POCT STAT 10/22/2023 4:14 AM CDT CBC WITH DIFFERENTIAL, B STAT 10/22/2023 4:13 AM CDT BASIC METABOLIC PANEL, S/P STAT 10/22/2023 4:13 AM CDT BACTERIA / [...] WO MICRO Routine 10/22/2023 3:36 AM CDT DIPSTICK, U STAT 10/22/2023 3:33 AM CDT MICROSCOPIC AUTOMATED STAT 10/22/2023 3:33 AM CDT BACTERIAL CULTURE, AEROBIC + SUSC, URINE STAT 10/22/2023 3:33 AM CDT PH, U STAT 10/22/2023 3:33 AM CDT OSMOLALITY, U STAT 10/22/2023 3:33 AM CDT URINALYSIS WITH MICROSCOPIC STAT 10/22/2023 3:33 AM CDT ECG STAT 10/22/2023 3:22 AM CDT documented in this encounter Results * Critical Care (10/24/2023 10:51 AM CDT) [...] * Dipstick, Urine (10/24/2023 9:36 AM CDT) Hemoglobin, QL, U Negative Negative 10/24/2023 10:28 [...] CDT Chito Duran M.D. LAB URINE ORDERABLES [facility] [address] [place] [address] * pH, Urine (10/24/2023 9:36 AM CDT) pH, U 6.3 4.5 - 8.0 10/24/2023 10: 32 AM CDT DTL Urine 10/24/2023 9:36 AM CDT 10/24/2023 9:58 AM CDT Chito Duran M.D. LAB URINE ORDERABLES [facility] [address] [place] [address], [facility] [address] [place] [address] * Microscopic Automated (10/24/2023 9:36 AM CDT) Microscopy Normal 10/24/2023 10:28 AM CDT DTL RBC None Seen <3 /hpf 10/24/2023 10:28 AM CDT DTL WBC None Seen /hpf 10/24/2023 10:28 AM CDT DTL Comment: ----REFERENCE VALUE---- <4 ??(Males) <11 (Females) Urine 10/24/2023 9:36 AM CDT 10/24/2023 9:58 AM CDT Chito Duran M.D. LAB URINE ORDERABLES Performing Organization Address City/[facility]/ZIP Co de Phone Number [facility] 200 [place], [place] [id number] [place] [phone] * Osmolality, Urine (10/24/2023 9:36 AM CDT) Pathologist [facility] Osmolality, U 456 150 - 1150 mOsm/kg 10/24/2023 10:32 AM CDT DTL Urine 10/24/2023 9:36 AM CDT 10/24/2023 9:58 AM CDT Chito Duran M.D. LAB URINE ORDERABLES Performing Organization Address City/[facility] Co de Phone Number [facility] 200 [place] [address], [facility]3] 200 [place] [address] * Urinalysis, with Microscopic: Urine, Midstream (10/24/2023 9:36 AM CDT) Source Urine, Urine, Midstream 10/24/2023 9:58 AM [...] CDT Chito Duran M.D. LAB URINE ORDERABLES [facility] [address] [place] [address], [facility] [address] [place] [address] * (ABNORMAL) Basic Metabolic Panel (10/24/2023 12:34 AM CDT) Potassium, S 4.1 3.6 - 5.2 mmol/L [...] CDT Odalys Lucio M.D. LAB BLOOD ADD-ON [facility] [address] [place] [address], [facility] DTL [facility] 200 [place] [address] * (ABNORMAL) CBC with Differential, Blood (10/24/2023 12:34 AM CDT) Hemoglobin 8.1(L) 13.2 - 16.6 g/dL 10/24/2023 1:08 AM CDT DTL Hematocrit 24.8(L) 38.3 - 48.6 % 10/24/2023 1:08 AM CDT DTL Erythrocytes 2.49(L) 4.35 - 5.65 x10(12)/L 10/24/2023 1:08 AM CDT DTL MCV 99.6(H) 78.2 - 97.9 fL 10/24/2023 1:08 AM CDT DTL RBC Distrib Width 15.9(H) 11.8 - 14.5 % 10/24/2023 1:08 AM CDT DTL Platelet Count 164 135 - 317 x10(9)/L 10/24/2023 1:43 AM CDT DTL Leukocytes 4.5 3.4 - 9.6 x10(9)/L 10/24/2023 1:43 AM CDT DTL Neutrophils 3.34 1.56 - 6.45 x10(9)/L 10/24/2023 1:08 AM CDT DHPM Lymphocytes 0.54(L) 0.95 - 3.07 x10(9)/L 10/24/2023 1:08 AM CDT DTL Monocytes 0.61 0.26 - 0.81 x10(9)/L 10/24/2023 1:08 AM CDT DTL Eosinophils <0.03 0.03 - 0.48 x10(9)/L 10/24/2023 1:08 AM CDT DTL Basophils <0.03 0.01 - 0.08 x10(9)/L 10/24/2023 1:08 AM CDT DTL Blood (Blood, Venous) 10/24/2023 12:34 AM CDT 10/24/2023 1:01 AM CDT Odalys Lucio M.D. LAB BLOOD ADD-ON [facility] 200 [place] [address], [facility] DTL [facility] 200 [place] [address] [address] * GI Pathogen Panel, PCR, Feces (10/23/2023 [...] This assay is performed using the FDA-cleared IvyDate GI Panel ([facility] Stool (Stool) 10/23/2023 2:5 7 PM CDT 10/23/2023 3:36 PM CDT Milla Snyder M.D. LAB MICROBIOLOGY - G ENERAL ORDERABLES [facility] 200 [place] [address], [facility] DT 200 [facility] [address] [place] [address] * (ABNORMAL) CBC with Differential, Blood (10/23/2023 12:22 AM CDT) Hemoglobin 8.3(L) 13.2 - 16.6 g/dL 10/23/2023 12:46 AM CDT DTL Hematocrit 26.2(L) 38.3 - 48.6 % 10/23/2023 12:46 AM CDT DTL Erythrocytes 2.60(L) 4.35 - 5.65 x10(12)/L 10/23/2023 12:46 AM CDT DTL MCV 100.8(H) 78.2 - 97.9 fL 10/23/2023 12:46 AM CDT DTL RBC Distrib Width 16.1(H) 11.8 - 14.5 % 10/23/2023 12:46 AM CDT DTL Platelet Count 133(L) 135 - 317 x10(9)/L 10/23/2023 12:46 AM CDT DTL Leukocytes 3.1(L) 3.4 - 9.6 x10(9)/L 10/23/2023 12:46 AM CDT DTL Neutrophils 2.79 1.56 - 6.45 x10(9)/L 10/23/2023 12:46 AM CDT DHPM Lymphocytes 0.21(L) 0.95 - 3.07 x10(9)/L 10/23/2023 12:46 AM CDT DTL Monocytes 0.14(L) 0.26 - 0.81 x10(9)/L 10/23/2023 12:46 AM CDT DTL Eosinophils <0.03 0.03 - 0.48 x10(9)/L 10/23/2023 12:46 AM CDT DTL Basophils <0.03 0.01 - 0.08 x10(9)/L 10/23/2023 12:46 AM CDT DTL Blood (Blood, Venous) 10/23/2023 12:22 AM CDT 10/23/2023 12:39 AM CDT Milla Snyder M.D. LAB BLOOD ADD-ON [facility] [address] [place] [address], [facility] DTL [facility] [address] [place] [address] [facility] [address] [place] [address] * (ABNORMAL) Basic Metabolic Panel (10/23/2023 12:22 AM CDT) [facility] Potassium, S 4.3 3.6 - 5.2 mmol/L 10/23/2023 1:11 AM CDT DTL Sodium, S 137 135 - 145 mmol/L 10/23/2023 1:11 AM CDT DTL Chloride, S 106 98 - 107 mmol/L 10/23/2023 1:11 AM CDT DTL Bicarbonate, S 20(L) 22 - 29 mmol/L 10/23/2023 1:11 AM CDT DTL Anion Gap 11 7 - 15 10/23/2023 1:11 AM CDT DTL BUN (Blood Urea Nitrogen), S 28(H) 8 - 24 mg/dL 10/23/2023 1:11 AM CDT DTL Creatinine 1.71(H) 0.74 - 1.35 mg/dL 10/23/2023 1:11 AM CDT DTL Estimated GFR (eGFR) 43(L) >=60 mL/min/BSA 10/23/2023 1:11 AM CDT DTL Comment: Estimated GFR calculated using the 2020 CKD_EPI creatinine equation. Calcium, Total, S 7.8(L) 8.8 - 10.2 mg/dL 10/23/2023 1:11 AM CDT DTL Glucose, S 191(H) 70 - 140 mg/dL 10/23/2023 1:11 AM CDT DTL Blood (Blood, Venous) 10/23/2023 12:22 AM CDT 10/23/2023 12:53 AM CDT Milla Snyder M.D. LAB BLOOD ADD-ON [facility] 200 [place] [address], [facility] 200 [place] [address] * FL Fluoro Less Than 1 Hour (10/22/2023 2:02 PM CDT) Narrative ERCP [facility] - 10/22/2023 2:03 PM CDT This exam does not require a radiologist review or interpretation. Please refer to the patient's medical record on this date for clinical details. Hansa Ye M.D., M.S. IMG FLUORO SCOPY PROCEDURES ERCP [facility] * Glucose, POCT (10/22/2023 1:09 PM CDT) Glucose, POCT, B 122 70 - 140 mg/dL 10/22/2023 1:14 PM CDT PCLX Site Capillary 10/22/2023 1:14 PM CDT PCLX Blood 10/22/2023 1:09 PM CDT 10/22/2023 1:14 PM CDT Unknown Provider LAB POCT ORDERABLES- MANUAL POC [facility] [address] [place] [address], [facility] PCLX [facility] POC [address] [place] [address] * ERCP (10/22/2023 12:50 PM CDT) 10/22/2023 12:5 0 PM CDT Impressions [facility] - 10/22/2023 2:13 PM CDT Post-op Diagnoses: [...] into the right ? hepatic duct. Narrative [facility] - 10/22/2023 2:13 PM CDT [place] 6 GI GI Patient Name: Jorge Luis Sepulveda Date of : 1955 Age: 68 Procedure Date: 10/22/2023 Procedure: ? ERCP Providers: ? Yariel [place] MD Referring Provider: ?Hansa M. Church Pre-op Diagnoses: ?Suspected ascending cholangitis, For therapy [...] bleeding, perforation, and cholangitis. Findings: ? A risk control representative film of the abdomen was obtained. Surgical [...] ? No immediate complications. 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 Yariel [place] MD 10/22/2023 2:12:48 PM This report has been signed electronically. Number of Addenda: 0 Hansa Ye M.D., M.S. GI PROCEDU RE ORDERABLES [employer] NA * (ABNORMAL) Prothrombin Time (PT) (10/22/2023 12:30 PM CDT) Prothrombin Time, P 15.5(H) 9.4 - 12.5 sec 10/22/2023 1:51 PM CDT DTL INR 1.4 0.9 - 1.1 10/22/2023 1:51 PM CDT DTL Comment: ----ADDITIONAL INFORMATION---- Standard intensity warfarin therapeutic range: 2.0 to 3.0 ?? High intensity warfarin therapeutic range: 2.5 to 3.5 Blood (Blood, Venous) 10/22/2023 12:30 PM CDT 10/22/2023 1:22 PM CDT Milla Snyder M.D. LAB BLOOD ADD-ON [facility] [address] [place] [address], [place] DTL [facility] [address] [place] [address] * US Gallbladder and or Biliary Ducts [...] Hepatic Function Panel (10/22/2023 5:59 AM CDT) Bilirubin, Total, S 0.6 0.0 - 1.2 [...] M.S. LAB BLOOD ADD-ON Performing Organization Address [facility]/ZIP Co de Phone Number [facility] [address] 200 [place] [address] * (ABNORMAL) Bacteria / Mariam Culture, Blood # 2 (10/22/2023 4:20 AM CDT) Pathologist [facility] Bacteria/Cand mary Culture, Blood KLEBSIELLA OXYTOCA/RAOULT JHONNY ORNITHINOLYTIC A/PLANTICOLA Growth after 12 Hours (A) 10/24/2023 1:24 PM CDT DT Comment: 2 of 2 Bottles, Susceptibilities performed on another specimen [id number] Blood (Blood, Peripheral Draw) 10/22/2023 4:20 AM CDT 10/22/2023 5:25 AM CDT Comment:Specimen Source Site : Blood Narrative [facility] - 10/24/2023 1:24 PM CDT Received Bactec aerobic and Bactec anaerobic bottles Hansa Ye M.D., M.S. LAB MICROB IOLOGY - GENERAL ORDERABLES Performing Organization Address [facility] Co de Phone Number [facility] [address] 200 [place] [address] * Lactate for Sepsis with Reflex, POCT (10/22/2023 4:14 AM CDT) Pathologist [facility] Lactate, POCT 1.03 0.50 - 2.20 mmol/L 10/22/2023 4:33 AM CDT PCLX Blood (Blood, Venous) 10/22/2023 4:14 AM CDT 10/22/2023 4:14 AM CDT Hansa Ye M.D., M.S. LAB POCT O RDERABLES - DEVICE Performing Organization Address City/[facility]/ZIP Co de Phone Number POC [facility] [address] PCLX [facility] [address] [place] [address] * (ABNORMAL) Basic Metabolic Panel (10/22/2023 4:13 AM CDT) Potassium, P 4.5 3.6 - 5.2 mmol/L 10/22/2023 5:03 AM CDT DTL Sodium, P 138 135 - 145 mmol/L 10/22/2023 5:03 AM CDT DTL Chloride, P 109(H) 98 - 107 mmol/L 10/22/2023 5:03 AM CDT DTL Bicarbonate, P 21(L) 22 - 29 mmol/L 10/22/2023 5:03 AM CDT DTL Anion Gap, P 8 7 - 15 10/22/2023 5:03 AM CDT DTL BUN (Blood Urea Nitrogen), P 24 8 - 24 mg/dL 10/22/2023 5:03 AM CDT DTL Creatinine 1.40(H) 0.74 - 1.35 mg/dL 10/22/2023 5:03 AM CDT DTL Estimated GFR (eGFR) 54(L) >=60 mL/min/BSA 10/22/2023 5:03 AM CDT DTL Comment: Estimated GFR calculated using the 2020 CKD_EPI creatinine equation. Calcium, Total, P 8.3(L) 8.8 - 10.2 mg/dL 10/22/2023 5:03 AM CDT DTL Glucose, P 123 70 - 140 mg/dL 10/22/2023 5:03 AM CDT DTL Blood (Blood, Venous) 10/22/2023 4:13 AM CDT 10/22/2023 4:35 AM CDT Hansa Ye M.D., M.S. LAB BLOOD ADD-ON [facility] [address] [place] [address], [place] DTL [facility] [address] [place] [address] * (ABNORMAL) CBC with Differential, Blood (10/22/2023 4:13 AM CDT) Hemoglobin 9.4(L) 13.2 - 16.6 g/dL 10/22/2023 4:31 AM CDT STMA Hematocrit 28.9(L) 38.3 - 48.6 % 10/22/2023 4:31 AM CDT [facility] Erythrocytes 2.92(L) 4.35 - 5.65 x10(12)/L 10/22/2023 4:31 AM CDT [facility] MCV 99.0(H) 78.2 - 97.9 fL 10/22/2023 4:31 AM CDT [facility] RBC Distrib Width 16.0(H) 11.8 - 14.5 % 10/22/2023 4:31 AM CDT [facility] Platelet Count 122(L) 135 - 317 x10(9)/L 10/22/2023 4:31 AM CDT [facility] Leukocytes 2.4(L) 3.4 - 9.6 x10(9)/L 10/22/2023 4:31 AM CDT [facility] Neutrophils 1.98 1.56 - 6.45 x10(9)/L 10/22/2023 4:31 AM CDT DHPM Lymphocytes 0.12(L) 0.95 - 3.07 x10(9)/L 10/22/2023 4:31 AM CDT ST[facility] Monocytes 0.27 0.26 - 0.81 x10(9)/L 10/22/2023 4:31 AM CDT [facility] Eosinophils <0.03 0.03 - 0.48 x10(9)/L 10/22/2023 4:31 AM CDT STMA Basophils <0.03 0.01 - 0.08 x10(9)/L 10/22/2023 4:31 AM CDT STMA Blood (Blood, Venous) 10/22/2023 4:13 AM CDT 10/22/2023 4:29 AM CDT Hansa Ye M.D., M.S. LAB BLOOD ADD-ON [facility] [address] [place] [address], [facility] STMA [facility] [address] [place] [address] [facility] 200 [place] [address] * (ABNORMAL) Bacteria / Mariam Culture, Blood #1 (10/22/2023 4:12 AM CDT) Bacteria/Cand mary Culture, Blood KLEBSIELLA OXYTOCA/RAOULT JHONNY ORNITHINOLYTIC A/PLANTICOLA Growth after 12 Hours (A) 10/24/2023 1:24 PM CDT DTL Comment: 1 of 2 Bottles, Critical Result. Blood (Blood, Peripheral Draw) 10/22/2023 4:12 AM CDT 10/22/2023 5:23 AM CDT Comment:Specimen Source Site : Blood Narrative [facility] - 10/24/2023 1:24 PM CDT Received Bactec aerobic and Bactec anaerobic bottles Organism Antibiotic Method Susceptibility K oxy/R ornithin/plant Amikacin SUSCEPTIBILITY, KAELYN (MCG/ML) <=4 mcg/mL: Susceptible K oxy/R ornithin/plant Aztreonam SUSCEPTIBILITY, KAELYN (MCG/ML) 2 mcg/mL: Susceptible K oxy/R ornithin/plant Ceftazidime SUSCEPTIBILITY, KAELYN (MCG/ML) 4 mcg/mL: Susceptible K oxy/R ornithin/plant Ciprofloxacin SUSCEPTIBILITY, KAELYN (MCG/ML) <=0.25 mcg/mL: Susceptible K oxy/R ornithin/plant Ceftriaxone SUSCEPTIBILITY, KAELYN (MCG/ML) 0.5 mcg/mL: Susceptible K oxy/R ornithin/plant Ertapenem SUSCEPTIBILITY, KAELYN (MCG/ML) 0.25 mcg/mL: Susceptible K oxy/R ornithin/plant Cefepime SUSCEPTIBILITY, KAELYN (MCG/ML) <=1 mcg/mL: Susceptible K oxy/R ornithin/plant Gentamicin SUSCEPTIBILITY, KAELYN (MCG/ML) <=1 mcg/mL: Susceptible K oxy/R ornithin/plant Meropenem SUSCEPTIBILITY, KAELYN (MCG/ML) <=0.25 mcg/mL: Susceptible K oxy/R ornithin/plant Tobramycin SUSCEPTIBILITY, KAELYN (MCG/ML) <=1 mcg/mL: Susceptible K oxy/R ornithin/plant Ampicillin + Sulbactam SUSCEPTIBILITY, KAELYN (MCG/ML) <=8/4 mcg/mL: Susceptible K oxy/R ornithin/plant Piperacillin + Tazobactam SUSCEPTIBILITY, KAELYN (MCG/ML) <=4/4 mcg/mL: Susceptible K oxy/R ornithin/plant Ampicillin SUSCEPTIBILITY, KAELYN (MCG/ML) mcg/mL: Resistant K oxy/R ornithin/plant Levofloxacin SUSCEPTIBILITY, KAELYN (MCG/ML) <=0.5 mcg/mL: Susceptible K oxy/R ornithin/plant Cefazolin SUSCEPTIBILITY, KAELYN (MCG/ML) 4 mcg/mL: Intermediate K oxy/R ornithin/plant Trimethoprim + Sulfamethoxazole SUSCEPTIBILITY, KAELYN (MCG/ML) <=0.5/9.5 mcg/mL: Susceptible K oxy/R ornithin/plant Cefdinir SUSCEPTIBILITY, KAELYN (MCG/ML) <=1 mcg/mL: Susceptible Hansa Ye M.D., M.S. LAB MICROB IOLOGY - GENERAL ORDERABLES [facility] 200 [place] [address], [facility] 200 [place] [address] * DX Chest AP or PA and [...] M.S. LAB MICROB IOLOGY - GENERAL ORDERABLES [facility] [address] [place] [address], [facility] [address] [place] [address] * SARS Coronavirus 2, PCR Rapid Symptomatic (10/22/2023 3:44 AM CDT) SARS CoV-2, PCR, Rapid, V Undetected Undetected 10/22/2023 4:18 AM CDT STMA Comment: ----ADDITIONAL INFORMATION---- This RT-PCR test was performed using the [employer] SARS-CoV-2 and Influenza A/B Reagent assay from [employer], which has received Emergency Use Authorization(EUA) by the U.S. Food and Drug Administration. Fact sheets for this Emergency Use Authorization (EUA) assay can be found at the following links: For Healthcare Providers: https://www.fda.gov/media/306468/download For Patients: https://www.fda.gov/media/591732/download SARS Coronavirus 2, Rapid, Source Swab, Nasopharynx 10/22/2023 3:49 AM CDT STMA Swab (Nasopharynx) 10/22/2023 3:44 AM CDT 10/22/2023 3:49 AM CDT Hansa Ye M.D., M.S. LAB MICROB IOLOGY - GENERAL ORDERABLES [facility] [address] [place] [address] * (ABNORMAL) Dipstick, POCT, Urine (10/22/2023 3:36 AM CDT) Glucose, POCT, U Negative Negative mg/dL 10/22/2023 3:38 AM CDT PCED Ketone, POCT, U Negative Negative mg/dL 10/22/2023 3:38 AM CDT PCED Specific [place], POCT, U 1.010 1.005 - 1.030 10/22/2023 [...] POCT ORDERABLES - DEVICE Performing Organization Address City/[facility]/ZIP Co de Phone Number POC RST [facility] 200 [place] [address], [facility] PCED [facility] POC 200 [place] [address] * pH, Urine (10/22/2023 3:33 AM CDT) pH, U 5.1 4.5 - 8.0 10/22/2023 4:0 5 AM CDT DTL Urine 10/22/2023 3:33 AM CDT 10/22/2023 3:52 AM CDT Hansa Ye M.D., M.S. LAB URINE ORDERABLES Performing Organization Address City/[facility] Co de Phone Number [facility] - [facility] 200 [place] [address], [facility] DTL [facility] 200 [place] [address] * (ABNORMAL) Dipstick, Urine (10/22/2023 3:33 AM CDT) Hemoglobin, QL, U Trace(A) Negative 10/22/2023 4:05 AM CDT DTL Leukocyte Esterase, U Negative Negative 10/22/2023 4:05 AM CDT DTL Nitrite, U Negative Negative 10/22/2023 4:05 AM CDT DTL Ketone, U Negative Negative mg/dL 10/22/2023 4:05 AM CDT DTL Glucose, U Negative Negative mg/dL 10/22/2023 4:05 AM CDT DTL Urine 10/22/2023 3:33 AM CDT 10/22/2023 3:52 AM CDT Hansa Ye M.D., M.S. LAB URINE ORDERABLES [facility] 200 [place] [address], [facility]3] 200 [place] [address] * Osmolality, Urine (10/22/2023 3:33 AM CDT) Pathologist [facility] Osmolality, U 475 150 - 1150 mOsm/kg 10/22/2023 4:05 AM CDT DTL Urine 10/22/2023 3:33 AM CDT 10/22/2023 3:52 AM CDT Hansa Ye M.D., M.S. LAB URINE ORDERABLES Performing Organization Address [facility] Co de Phone Number [facility] 200 [place] [address], [facility]3] 200 [place] [address] * Microscopic Automated (10/22/2023 3:33 AM CDT) [facility] Microscopy Normal 10/22/2023 4:05 AM CDT DTL RBC <3 <3 /hpf 10/22/2023 4:05 AM CDT DTL WBC None Seen /hpf 10/22/2023 4:05 AM CDT DTL Comment: ----REFERENCE VALUE---- <4 ??(Males) <11 (Females) Urine 10/22/2023 3:33 AM CDT 10/22/2023 3:52 AM CDT Hansa Ye M.D., M.S. LAB URINE ORDERABLES Performing Organization Address [facility] Co de Phone Number [facility] [address] [place] [address], [facility]3] [address] [place] [address] * Bacterial Culture, Aerobic + Susceptibility, Urine (10/22/2023 3:33 AM CDT) [facility] Urine Culture Urogenital microbiota, susceptibilities not performed per laboratory criteria. 10/23/2023 8:40 AM CDT DTL Urine (Urine, Midstream) 10/22/2023 3:33 AM CDT 10/22/2023 7:05 AM CDT Comment:Specimen Source Site : Urine Hansa Ye M.D., M.S. LAB MICROB IOLOGY - GENERAL ORDERABLES Performing Organization Address City/[facility] Co de Phone Number [facility] [address] [place] [address], [facility]3] [address] [place] [address] * (ABNORMAL) Urinalysis, with Microscopic: Urine, Midstream (10/22/2023 3:33 AM CDT) Source Urine, Urine, Midstream 10/22/2023 3:52 AM CDT DTL Color, U Yellow 10/22/2023 3:52 AM CDT DTL Clarity, U Clear 10/22/2023 3:52 AM CDT DTL Protein, U 23 <26 mg/dL 10/22/2023 4:27 AM CDT DTL Protein/Osmol ality 0.48(H) <0.42 ratio 10/22/2023 4:27 AM CDT DTL Predicted 24 HR Protein, U 472(H) <229 mg/24 h 10/22/2023 4:27 AM CDT DTL Predicted Range 150-1486 mg/24 h 10/22/2023 4:27 AM CDT DTL Urine (Urine, Midstream) 10/22/2023 3:33 AM CDT 10/22/2023 3:52 AM CDT Hansa Ye M.D., M.S. LAB URINE ORDERABLES Performing Organization Address [facility] Co de Phone Number [facility] [address] [place] [address], [facility] [address] [place] [address] * ECG 12 Lead (10/22/2023 3:22 AM CDT) Ventricular Rate ECG/Min 117 BPM MUSE WA Interval 168 ms MUSE QRSD Interval 84 ms MUSE QT Interval 290 ms MUSE QTC Interval 404 ms MUSE P Jameson 68 degrees MUSE R Jameson 48 degrees MUSE T Wave Jameson 48 degrees MUSE 10/22/2023 3:22 AM CDT [...] M.D., M.P.H. ECG ORDERAB LES MUSE NA documented in this encounter Visit Diagnoses Diagnosis Change Mental Status- Primary Change Mental Status Sepsis (HCC) Elevated Liver Function Test Retention Urinary Constipation Slow Transit Weakness General Anemia Chemotherapy Induced Debility [R53.81] Cholangitis Acute (HCC) documented in this encounter Admitting Diagnoses Diagnosis Change Mental Status Cholangitis Acute (HCC) documented in this encounter Administered Medications Inactive Administered Medications - up to 3 most recent administrations Medication Order MAR Action Action Date Dose Rate Site acetaminophen tablet 1,000 mg (TylenoL) 1,000 mg, oral, Once, On Sat10/22/23 at 0352, For 1 dose Given 10/22/2023 4:02 AM CDT 1,000 mg acetaminophen tablet 500 mg (TylenoL) 500 mg, oral, 4 times daily, First dose on Sat10/22/23 at 1200, Not to exceed 4 grams of acetaminophen in 24 hours all sources Given 10/24/2023 2:04 PM CDT 500 mg Given 10/24/2023 9:43 AM CDT 500 mg Given 10/23/2023 9:09 PM CDT 500 mg amLODIPine tablet 10 mg (Norvasc) 10 mg, oral, Daily, First dose (after last modification) on Sat10/24/23 at 1045 Given 10/24/2023 11:38 AM CDT 10 mg cholecalciferol (vitamin D3) tablet 25 mcg 25 mcg, oral, Daily, First dose on Sat10/23/23 at 0900, cholecalciferol (vitamin D3) orderable was interchanged for cholecalciferol (vitamin D3) tablet/capsule Given 10/24/2023 9:43 AM C DT 25 mcg Given 10/23/2023 8:19 AM CDT 25 mcg cyanocobalamin tablet 1,000 mcg (Vitamin B-12) 1,000 mcg, oral, Every other day, First dose on Sat10/23/23 at 0900 Given 10/23/2023 8:19 AM CDT 1,000 mcg heparin (porcine) injection 5,000 Units 5,000 Units, subcutaneous, Every 8 hours scheduled, First dose on Sat10/22/23 at 2200 Given 10/23/2023 6:16 AM CDT 5,000 Units Left Upper Arm (Back ) Given 10/22/2023 10:26 PM CDT 5,000 Units Right Lower Abdomen Lactated Ringer's 75 mL/hr, intravenous, Continuous, Starting on Sat10/22/23 at 1530, For 12 hours New Bag 10/22/2023 4:22 PM CDT 75 mL/hr 7 5 mL/hr melatonin tablet 3 mg 3 mg, oral, Bedtime PRN, sleep, Starting on Sat10/23/23 at 1926 NaCl 0.9 % bolus 1,000 mL 1,000 mL, intravenous, at 1,000 mL/hr, Administer over 1 Hours, Once, On Sat10/22/23 at 0325, For 1 dose New Bag 10/22/2023 3:57 AM CDT 1,000 mL 1000 mL/hr ondansetron ODT disintegrating tablet 4 mg (Zofran-ODT) 4 mg, oral, Every 6 hours PRN, nausea, vomiting, Starting on Sat10/22/23 at 1134, When splitting ODT at bedside, handle with gloves and a pill splitter to prevent moisture contact. Given 10/24/2023 7:14 AM CDT 4 mg piperacillin-tazobactam in dextrose (iso osm) IVPB 3.375 g (Zosyn) 3.375 g, intravenous, at 100 mL/hr, Administer over 0.5 Hours, Once, On Sat10/22/23 at 0429, For 1 dose, Drug Monitoring Program: Pharmacist to adjust medication dosing based on indication and drug clearance factors., Indications: Intra-abdominal infection, community acquired New Bag 10/22/2023 4:33 AM CDT 3.375 g 1 00 mL/hr piperacillin-tazobactam in dextrose (iso osm) IVPB 3.375 g (Zosyn) 3.375 g, intravenous, at 100 mL/hr, Administer over 0.5 Hours, Every 6 hours, First dose on Sat10/22/23 at 1200, For 2 doses, Drug Monitoring Program: Pharmacist to adjust medication dosing based on indication and drug clearance factors., Indications: Intra-abdominal infection, community acquired New Bag 10/22/2023 3:27 PM CDT 3.375 g 1 00 mL/hr piperacillin-tazobactam in dextrose (iso osm) IVPB 3.375 g (Zosyn) 3.375 g, intravenous, at 100 mL/hr, Administer over 0.5 Hours, Every 6 hours, First dose (after last reorder) on Sat10/22/23 at 2100, Drug Monitoring Program: Pharmacist to adjust medication dosing based on indication and drug clearance factors., Indications: Blood stream infection, Intra-abdominal infection, community acquired New Bag 10/23/2023 8:19 AM CDT 3.375 g 1 00 mL/hr New Bag 10/23/2023 4:15 AM CDT 3.375 g 100 mL/hr New Bag 10/22/2023 10:34 PM CDT 3.375 g 100 mL/hr sulfamethoxazole-trimethoprim 800-160 mg per tablet 1 tablet (Bactrim DS) 1 tablet, oral, Every 12 hours scheduled, First dose on Sat10/23/23 at 1200, For 6 days, Drug Monitoring Program: Pharmacist to adjust medication dosing based on indication and drug clearance factors., Indications: Intra-abdominal infection, community acquired Given 10/24/2023 9:43 AM CDT 1 tablet Given 10/23/2023 9:09 PM CDT 1 tablet Given 10/23/2023 12:53 PM CDT 1 tablet documented in this encounter Active and Recently Administered Medications Times are shown in CDT. Scheduled Medication Order 10/22/2023 10/23/2023 10/24/2023 acetaminophen tablet 1,000 mg (TylenoL) (COMPLETED) 1,000 mg, oral, Once, On Sat10/22/23 at 0352, For 1 dose 0402 (Given - Provider: Maria Del Carmen Dorsey R.N.) acetaminophen tablet 500 mg (TylenoL) 500 mg, oral, 4 times daily, First dose on Sat10/22/23 at 1200, Not to exceed 4 grams of acetaminophen in 24 hours all sources 1516 (Not Given - Provider: Chyna Rutledge R.N. - Reason: Patient/family refused)1731 (Given - Provider: Gale Hall R.N.)2226 (Given - Provider: Gale Hall R.N.) 0819 (Given - Provider: Chelly Barrera, R.NHolden, C.M.S.R.N.)1253 (Given - Provider: Marilu Bragg R.N.)1604 (Given - Provider: Marilu Bragg R.N.)2109 (Given - Provider: Mariama Zayas R.N.) 0943 (Given - Provider: Chelly Barrera, R.N., C.M.S.R.N.)1404 (Given - Provider: Lilia Richards R.N., CCRN, CIPRIANO)1700 (Due) amLODIPine tablet 10 mg (Norvasc) 10 mg, oral, Daily, First dose (after last modification) on Sat10/24/23 at 1045 1138 (Given - Provider: Lilia Richards R.N., CCRN, CIPRIANO) cholecalciferol (vitamin D3) tablet 25 mcg 25 mcg, oral, Daily, First dose on Sat10/23/23 at 0900, cholecalciferol (vitamin D3) orderable was interchanged for cholecalciferol (vitamin D3) tablet/capsule 0819 (Given - Provider: Osei BarreraSMagdalena, RMagdalena, Mukesh.S.RHoldenNHolden) 0943 (Given - Provider: Chelly Barrera, Gerald., DianaS.RHoldenNHolden) cyanocobalamin tablet 1,000 mcg (Vitamin B-12) 1,000 mcg, oral, Every other day, First dose on Sat10/23/23 at 0900 0819 (Given - Provider: Chelly Barrera, Dioni.Peyton, Reva.M.S.RHoldenNHolden) heparin (porcine) injection 5,000 Units 5,000 Units, subcutaneous, Every 8 hours scheduled, First dose on Sat10/22/23 at 2200 2226 (Given - Provider: Gale Hall R.N.) 0616 (Given - Provider: Pineda Jensen R.N.)1455 (Not Given - Provider: Marilu Bragg R.N. - Reason: Patient/family refused)8 (Not Given - Provider: Mariama Zayas R.N. - Reason: Other - Comment: per , OK to hole due to melena earlier today) 0514 (Not Given - Provider: Mariama Zayas R.N. - Reason: Patient/family refused - Comment: pt refused d/t melena on 10/22)1453 (Not Given - Provider: Lilia Richards R.N., CCRN, CIPRIANO - Reason: Other - Comment: per Dr. Duran, pt will be d/c'd in a few hours and has been up and working with PT) lisinopriL tablet 20 mg 20 mg, oral, Daily, First dose on Sat10/23/23 at 0900, On hold since Sat10/22/2023 at 1137 until manually unheld 113 (Held by provider - Provider: Milla Snyder M.D. - Comment: Infection precautions) 0900 (Canceled Entry - Provider: Marilu Bragg R.N.) 0900 (Not Given - Provider: Lilia Richards R.N., CCRN, CIPRIANO - Reason: See Provider Order)1951 (Unheld by provider - Provider: Discharge Provider, Automatic) NaCl 0.9 % bolus 1,000 mL (COMPLETED) 1,000 mL, intravenous, at 1,000 mL/hr, Administer over 1 Hours, Once, On Sat10/22/23 at 0325, For 1 dose 0357 (New Bag - Provider: Marai Del Carmen Dorsey RMagdalena)0504 (Stopped - Provider: Leola Rhoades R.N.) piperacillin-tazobactam in dextrose (iso osm) IVPB 3.375 g (Zosyn) (COMPLETED) 3.375 g, intravenous, at 100 mL/hr, Administer over 0.5 Hours, Once, On Sat10/22/23 at 0429, For 1 dose, Drug Monitoring Program: Pharmacist to adjust medication dosing based on indication and drug clearance factors., Indications: Intra-abdominal infection, community acquired 0433 (New Bag - Provider: Quinton Heart RHoldenNHolden)0504 (Stopped - Provider: Leola Rhoades R.N.) piperacillin-tazobactam in dextrose (iso osm) IVPB 3.375 g (Zosyn) () 3.375 g, intravenous, at 100 mL/hr, Administer over 0.5 Hours, Every 6 hours, First dose on Sat10/22/23 at 1200, For 2 doses, Drug Monitoring Program: Pharmacist to adjust medication dosing based on indication and drug clearance factors., Indications: Intra-abdominal infection, community acquired 1527 (New Bag - Provider: Chyna Rutledge RHoldenNHolden)1715 (Not Given - Provider: Gale Hall R.N. - Reason: Other) piperacillin-tazobactam in dextrose (iso osm) IVPB 3.375 g (Zosyn) (CANCELED) 3.375 g, intravenous, at 100 mL/hr, Administer over 0.5 Hours, Every 6 hours, First dose (after last reorder) on Sat10/22/23 at 2100, Drug Monitoring Program: Pharmacist to adjust medication dosing based on indication and drug clearance factors., Indications: Blood stream infection, Intra-abdominal infection, community acquired 2234 (New Bag - Provider: Gale Hall RMagdalena) 0415 (New Bag - Provider: Pineda Jensen R.N.)0819 (New Bag - Provider: Chelly Barrera, R.N., C.M.S.R.N.) sennosides-docusate sodium 8.6-50 mg per tablet 1 tablet (Senokot-S) 1 tablet, oral, 2 times daily, First dose on Sat10/22/23 at 2100, Do not give if patient has diarrhea., On hold since Sat10/23/2023 at 1428 until manually unheld 2001 (Not Given - Provider: Gale Hall R.N. - Reason: Other) 08 (Not Given - Provider: Chelly Barrera, R.N., C.M.S.R.N. - Reason: Order parameters not met)1428 (Held by provider - Provider: Milla Snyder M.D. - Comment: diarrhea)2100 (Not Given - Provider: Mariama Zayas R.N. - Reason: See Provider Order) 0900 (Not Given - Provider: [facility]., [facility] - Reason: See Provider Order)1951 (Unheld by provider - Provider: Discharge Provider, Automatic) sulfamethoxazole-trimetho prim 800-160 mg per tablet 1 tablet (Bactrim DS) 1 tablet, oral, Every 12 hours scheduled, First dose on Sat10/23/23 at 1200, For 6 days, Drug Monitoring Program: Pharmacist to adjust medication dosing based on indication and drug clearance factors., Indications: Intra-abdominal infection, community acquired 1253 (Given - Provider: Marilu Bragg R.N.)2109 (Given - Provider: Mariama Zayas R.N.) 0943 (Given - Provider: Edmund Barrera.S.N., R.N., C.M.S.R.N.) Continuous Medication Order 10/22/2023 10/23/2023 10/24/2023 Lactated Ringer's () 75 mL/hr, intravenous, Continuous, Starting on Sat10/22/23 at 1530, For 12 hours 1622 (New Bag - Provider: Gale Hall R.N.) 0723 (Stopped - Provider: Osei BarreraSHoldenPeyton, R.N., C.Edmund.S.RHoldenNHolden) PRN Medication Order 10/22/2023 10/23/2023 10/24/2023 calcium carbonate chewable tablet 400 mg of calcium (Tums) 400 mg of calcium, oral, Every 2 hour PRN, heartburn, indigestion, Starting on Sat10/22/23 at 1131, Doses listed are in mg of elemental calcium. Take with food. 500 mg calcium carbonate contains 200 mg of elemental calcium. melatonin tablet 3 mg 3 mg, oral, Bedtime PRN, sleep, Starting on Sat10/23/23 at 1926 2110 (Not Given - Provider: Mariama Zayas R.N. - Reason: Patient/family refused) ondansetron ODT disintegrating tablet 4 mg (Zofran-ODT) 4 mg, oral, Every 6 hours PRN, nausea, vomiting, Starting on Sat10/22/23 at 1134, When splitting ODT at bedside, handle with gloves and a pill splitter to prevent moisture contact. 0714 (Given - Provid er: Dora Mirza R.N.) polyethylene glycol powder packet 17 g (Miralax) 17 g, oral, Daily PRN, constipation, Starting on Sat10/22/23 at 1132, Ordered sequence of administration: polyethylene glycol, then bisacodyl until BM achieved. Avoid mixing with starch-based thickened liquids. documented in this encounter Additional Health Concerns Infection Onset Date Last Indicated Resolved Time Protective Environment 11/07/2022 11/07/2022 COVID19 Pending 10/22/2023 10/22/2023 10/22/2023 4 :18 AM CDT documented as of this encounter Care Teams Actuarial Mathematician Relationship Specialty Start Date End Date Mark Colorado M.D. [address], [place] [phone] PCP - General Family Medicine 11/09/22 documented as of this encounter
--- OUTSIDE RECORDS SUMMARY | 2023-11-05 22:05 | XMS_ITS | Encounter Summary ---
Author Organization [facility] Address [address] [place] [address] Care Team Providers Care Umbrella Cutter Name Role Phone Mark Colorado M.D. Primary Care Provider [phone] Encounter Details Date Type Department Care Team (Late st Contact Info) Description 10/26/2023 Clinical Communication Department of Oncology in [place], [place] [address] [place] [address] Bacilio Forresetr M.D. [address] [place] [phone] Social History Tobacco Use Types Packs/Day Years Used Date Smoking Tobacco: Never Passive Smoke Exposure: Never Smokeless Tobacco: Never Alcohol Use Standard Drinks/Week Comments Not Currently 0 (1 standard drink = 0.6 oz pur e alcohol) [facility] Utilities Answer Date Recorded In the past 12 months has th e electric, gas, oil, or water company threatened to [...] your living situation today? I have a karen place to live 10/22/2023 Sex and Gender Information Value Date Recorded Sex Assigned at Male 09/10/2022 12:02 PM CDT Gender Identity Male 09/10/2022 12:02 PM CDT Sexual Orientation Straight 09/10/2022 12 :02 PM CDT documented as of this encounter Miscellaneous Notes * Telephone Encounter - Bacilio Forrester M.D. - 10/26/2023 12:24 PM CDT Oncology: The patient's called. Also spoke with the patient He reports he has abdominal pain 2-3/10 and has noticed his abdomen is more firm and distended. They are wondering what could be going on. He is able to pass gas today and have bowel movements. He has 2 loose stools. He is able to take in p.o. intake. He preivously required catheterization for urinary retention but able to urinate fine right now. Reports he has good stream and output out. No fevers. He takes tylenol 1g BID. He has never had paracentesis for ascites. Impression: - multiple possibilities for why he could be having gradually worsening abdominal pain and having more abdominal distention. - eating well, no nausea/vomiting, and passing gas and having bowel movements, which argues againstbowel obstruction - possible he could be having more ascitic fluid. Discussed he could go to ED to get this checked out but their may not be enough fluid to tap. Plan: Discussed with the patient, his , and his son that at this point in time, I do not see a need for him to go to the emergency department. However, if his abdominal pain were to worsen, unable to tolerate p.o. intake because of nausea and vomiting, unable to pass gas or have bowel movements, has fevers, has significantly worsening abdominal distention with early satiety (suggestive of worseningascites and needing a therapeutic paracentesis), or unable to urinate, he needs to go to emergency department. They are comfortable with the above and agree with observation for now. Will notify his care team. Bacilio Forrester MD Fellow on-call documented in this encounter Plan of Treatment Upcoming Encounters Date Type Department Care Team (Latest Contact Info) Description 11/07/2023 3:15 PM CDT Clinical Communication Virtual Review in [address] [phone] 11/15/2023 6:40 AM CDT Lab Department of Laboratory Medicine and Pathology, [facility], in [address] [phone] Loyda Lennon M.D. [address] [place] [phone] 11/15/2023 8:20 AM CDT Office Visit Department of Oncology in [address] [phone] Manjit Velasquez APRN, C.N.P., D.N.P. [address] [place] [phone] 11/15/2023 9:30 AM CDT Comprehensive Visit Department of Palliative Care in [address] [phone] Patty Gomez APRN, C.N.P., M.S.N. [address] [place] [phone] 11/15/2023 2:15 PM CDT Infusion Department of Oncology in [address] [phone] Loyda Lennon M.D. [address] [place] [phone] 11/22/2023 7:30 AM CDT Lab Department of Oncology in [address] [phone] Loyda Lennon M.D. [address] [place] [phone] 11/22/2023 8:45 AM CDT Infusion Department of Oncology in [place], [place] [address] [place] [phone] Loyda Lennon M.D. [address] [place] [phone] 11/28/2023 3:30 PM CDT Clinical Communication Virtual Review in [place], [place] [address] [place] [address] 11/29/2023 9:00 AM CDT Procedure visit Department of Urology in [place], [place] [address] [place] [phone] Mark Colorado M.D. [address] [place] [address] [place] [address] 11/29/2023 11:20 AM CDT Lab Department of Laboratory Medicine and Pathology, [facility] in [place], [place] [address] [place] [phone] Loyda Lennon M.D. [address] [place] [phone] 11/29/2023 11:30 AM CDT Lab Department of Oncology in [place], [place] [address] [place] [phone] Loyda Lennon M.D. [address] [place] [phone] 11/29/2023 1:00 PM CDT Infusion Department of Oncology in [place], [place] [address] [place] [phone] Loyda Lennon M.D. [address] [place] [phone] 12/03/2023 1:45 PM CDT Comprehensive Visit Department of Urology in [place], [place] [address] [place] [phone] Mona Egan P.A.-C. [address] [place] [phone] 12/05/2023 1:20 PM CDT Comprehensive Visit Department of Oncology in [place], [place] [address] [place] [phone] Letty Kate M.D. [address] [place] [phone] 12/10/2023 3:00 PM CDT Clinical Communication Virtual Review in [place], [place] [address] [place] [address] 12/10/2023 3:30 PM CDT Procedure visit Department of Urology in [place], [place] [address] [place] [phone] Mark Colorado M.D. [facility] [place] [address] 12/12/2023 3:45 PM CDT Appointment Department of Radiology, [facility], in [place], [place] [address] [place] [phone] Na Hernandez M.D., Ph.D. [address] [place] [phone] 12/13/2023 6:00 AM CDT Lab Department of Laboratory Medicine and Pathology, [facility], in [place], [place] [address] [place] [phone] Loyda Lennon M.D. [address] [place] [phone] 12/13/2023 6:20 AM CDT Lab Department of Infusion Therapy in [place], [place] [address] [place] [phone] Loyda Lennon M.D. [address] [place] [phone] 12/13/2023 11:10 AM CDT Office Visit Department of Oncology in [place], [place] [address] [place] [phone] Na Hernandez M.D., Ph.D. [address] [place] [phone] 12/13/2023 1:00 PM CDT Infusion Department of Oncology in [place], [place] [address] [place] [phone] Loyda Lennon M.D. [address] [place] [phone] 12/20/2023 9:20 AM CDT Lab Department of Infusion Therapy in [address] [phone] Loyda Lennon M.D. [address] [place] [phone] 12/20/2023 10:30 AM CDT Infusion Department of Oncology in [place], [place] [address] [place] [phone] Loyda Lennon M.D. [address] [place] [phone] 12/25/2023 10:30 AM CDT Appointment Division of Gastroenterology in [address] [phone] Na Hernandez M.D., Ph.D. [address] [place] [phone] 12/27/2023 10:15 AM CDT Lab Department of Oncology in [place], [place] [address] [place] [phone] Loyda Lennon M.D. [address] [place] [phone] 12/27/2023 10:30 AM CDT Lab Department of Laboratory Medicine and Pathology, [facility] in [place], [place] [address] [place] [phone] Loyda Lennon M.D. [address] [place] [phone] 12/27/2023 11:45 AM CDT Infusion Department of Oncology in [place], [place] [address] [place] [phone] Loyda Lennon M.D. [address] [place] [phone] 01/03/2024 1:00 PM CDT Clinical Communication Virtual Review in [place], [place] [address] [place] [address] 01/10/2024 8:00 AM CDT Lab Department of Infusion Therapy in [place], [place] [address] [place] [phone] Loyda Lennon M.D. [address] [place] [phone] 01/10/2024 8:20 AM CDT Lab Department of Laboratory Medicine and Pathology, [facility] in [place], [place] [address] [place] [phone] Loyda Lennon M.D. [address] [place] [phone] 01/10/2024 10:30 AM CDT Office Visit Department of Oncology in [place], [place] [address] [place] [phone] Na Hernandez M.D., Ph.D. [address] [place] [phone] 01/10/2024 11:45 AM CDT Infusion Department of Oncology in [place], [place] [address] [place] [phone] Loyda Lennon M.D. [address] [place] [phone] 01/17/2024 8:45 AM CDT Lab Department of Oncology in [place], [place] [address] [place] [phone] Loyda Lennon M.D. [address] [place] [phone] 01/17/2024 10:00 AM CDT Infusion Department of Oncology in [address] [phone] Loyda Lennon M.D. [address] [place] [phone] 01/24/2024 8:00 AM CDT Lab Department of Laboratory Medicine and Pathology, [facility], in [place], [place] [address] [place] [phone] Loyda Lennon M.D. [address] [place] [phone] 01/24/2024 8:15 AM CDT Lab Department of Oncology in [address] [phone] Loyda Lennon M.D. [address] [place] [phone] 01/24/2024 9:15 AM CDT Infusion Department of Oncology in [place], [place] [address] [place] [address] Loyda Lennon M.D. 200 [place] [phone] Scheduled Procedures Name Priority Associated Diagnoses Date/Ti me HEPATECTOMY RESECTION LIVER Cholangiocarcinoma (HCC) ULTRASOUND LIVER Cholangiocarcinoma (HCC) RECONSTRUCTION PORTAL VEIN Cholangiocarcinoma (HCC) documented as of this encounter Visit Diagnoses Not on filedocumented in this encounter Additional Health Concerns Infection Onset Date Last Indicated Resolved Time Protective Environment 11/07/2022 11/07/2022 documented as of this encounter Care Teams Umbrella Cutter Relationship Specialty Start Date End Date Mark Colorado M.D. [address] [place] [phone] PCP - General Family Medicine 11/09/22 documented as of this encounter
--- OUTSIDE RECORDS SUMMARY | 2023-11-05 22:05 | XMS_ITS | Encounter Summary ---
Author Organization [facility] Address [address] [place] [address] Care Team Providers Care Executive Housekeeper Name Role Phone Mrak Colorado M.D. Primary Care Provider [phone] Reason for Visit * Reason Onset Date Comments Plan moving forward 10/24/2023 Encounter Details Date Type Department Care Team (Latest Contact Info) Description 10/24/2023 Clinical Communication Department of Oncology in [place], [place] [address] [place] [address] Jodi Rosa R.N., O.C.N. Plan moving forward Social History Tobacco Use Types Packs/Day Years Used Date Smoking Tobacco: Never Passive Smoke Exposure: Never Smokeless Tobacco: Never Alcohol Use Standard Drinks/Week Comments Not Currently 0 (1 standard drink = 0.6 oz pur e alcohol) occ [facility] Utilities Answer Date Recorded In the past 12 months has e electric, gas, oil, or water company [...] your living situation today? I [facility] a [facility] place to live 10/22/2023 Sex and Gender Information Value Date Recorded Sex Assigned at Male 09/10/2022 12:02 PM CDT Gender Identity Male 09/10/2022 12:02 PM CDT Sexual Orientation Straight 09/10/2022 12 :02 PM CDT documented as of this encounter Plan of Treatment Upcoming Encounters Date Type Department Care Team (Latest Contact Info) Description 11/07/2023 3:15 PM CDT Clinical Communication Virtual Review in [place], [place] [address] [place] [address] 11/15/2023 6:40 AM CDT Lab Department of Laboratory Medicine and Pathology, [facility], in [place], [place] [address] [place] [phone] Loyda Lennon M.D. [address] [place] [phone] 11/15/2023 8:20 AM CDT Office Visit Department of Oncology in [place], [place] [address] [place] [phone] Manjit Velasquez APRN, C.N.P., D.N.P. [address] [place] [phone] 11/15/2023 9:30 AM CDT Comprehensive Visit Department of Palliative Care in [place], [place] [address] [place] [phone] Patty Gomez APRN, C.N.P., M.S.N. [address] [place] [phone] 11/15/2023 2:15 PM CDT Infusion Department of Oncology in [place], [place] [address] [place] [phone] Loyda Lennon M.D. [address] [place] [phone] 11/22/2023 7:30 AM CDT Lab Department of Oncology in [place], [place] [address] [place] [phone] Loyda Lennon M.D. [address] [place] [phone] 11/22/2023 8:45 AM CDT Infusion Department of Oncology in [place], [place] [address] [place] [phone] Loyda Lennon M.D. [address] [place] [phone] 11/28/2023 3:30 PM CDT Clinical Communication Virtual Review in [place], [place] [address] [place] [address] 11/29/2023 9:00 AM CDT Procedure visit Department of Urology in [place], [place] [address] [place] [phone] Mark Colorado M.D. [address] [place] [phone] 11/29/2023 11:20 AM CDT Lab Department of Laboratory Medicine and Pathology, [facility], in [place], [place] [address] [place] [phone] Loyda Lennon M.D. [address] [place] [phone] 11/29/2023 11:30 AM CDT Lab Department of Oncology in [place], [place] [address] [place] [phone] Loyda Lennon M.D. [address] [place] [phone] 11/29/2023 1:00 PM CDT Infusion Department of Oncology in [place], [place] [address] [place] [phone] Loyda Lennon M.D. [address] [place] [phone] 12/03/2023 1:45 PM CDT Comprehensive Visit Department of Urology in [place], [place] [address] [place] [phone] Mona Egan P.A.-C. [address] [place] [phone] 12/05/2023 1:20 PM CDT Comprehensive Visit Department of Oncology in [place], [place] [address] [place] [phone] Letty Kate M.D. [address] [place] [phone] 12/10/2023 3:00 PM CDT Clinical Communication Virtual Review in [place], [place] [address] [place] [address] 12/10/2023 3:30 PM CDT Procedure visit Department of Urology in [place], [place] [address] [place] [phone] Mark Colorado M.D. [address] [place] [phone] 12/12/2023 3:45 PM CDT Appointment Department of Radiology, [facility], in [place], [place] [address] [place] [phone] Na Hernandez M.D., Ph.D. [address] [place] [phone] 12/13/2023 6:00 AM CDT Lab Department of Laboratory Medicine and Pathology, [facility], in [place], [place] [address] [place] [phone] Loyda Lennon M.D. [address] [place] [phone] 12/13/2023 6:20 AM CDT Lab Department of Infusion Therapy in [place], [place] [address] [place] [phone] Loyda Lennon M.D. [address] [place] [phone] 12/13/2023 11:10 AM CDT Office Visit Department of Oncology in [place], [place] [address] [place] [phone] Na Hernandez M.D., Ph.D. [address] [place] [phone] 12/13/2023 1:00 PM CDT Infusion Department of Oncology in [place], [place] [address] [place] [phone] Loyda Lennon M.D. [address] [place] [phone] 12/20/2023 9:20 AM CDT Lab Department of Infusion Therapy in [place], [place] [address] [place] [phone] Loyda Lennon M.D. [address] [place] [phone] 12/20/2023 10:30 AM CDT Infusion Department of Oncology in [place], [place] [address] [place] [phone] Loyda Lennon M.D. [address] [place] [phone] 12/25/2023 10:30 AM CDT Appointment Division of Gastroenterology in [place], [place] [address] [place] [phone] Na Hernandez M.D., Ph.D. [address] [place] [phone] 12/27/2023 10:15 AM CDT Lab Department of Oncology in [place], [place] [address] [place] [phone] Loyda Lennon M.D. [address] [place] [phone] 12/27/2023 10:30 AM CDT Lab Department of Laboratory Medicine and Pathology, [facility] in [place], [place] [address] [place] [phone] Loyda Lennon M.D. [address] [place] [phone] 12/27/2023 11:45 AM CDT Infusion Department of Oncology in [address] [phone] Loyda Lennon M.D. [address] [place] [phone] 01/03/2024 1:00 PM CDT Clinical Communication Virtual Review in [place], [place] [address] [place] [address] 01/10/2024 8:00 AM CDT Lab Department of Infusion Therapy in [address] [phone] Loyda Lennon M.D. [address] [place] [phone] 01/10/2024 8:20 AM CDT Lab Department of Laboratory Medicine and Pathology, [facility], in [place], [place] [address] [place] [phone] Loyda Lennon M.D. [address] [place] [phone] 01/10/2024 10:30 AM CDT Office Visit Department of Oncology in [place], [place] [address] [place] [phone] Na Hernandez M.D., Ph.D. [address] [place] [phone] 01/10/2024 11:45 AM CDT Infusion Department of Oncology in [place], [place] [address] [place] [phone] Loyda Lennon M.D. [address] [place] [phone] 01/17/2024 8:45 AM CDT Lab Department of Oncology in [place], [place] [address] [place] [phone] Loyda Lennon M.D. [address] [place] [phone] 01/17/2024 10:00 AM CDT Infusion Department of Oncology in [place], [place] [address] [place] [phone] Loyda Lennon M.D. [address] [place] [phone] 01/24/2024 8:00 AM CDT Lab Department of Laboratory Medicine and Pathology, [facility], in [place], [place] [address] [place] [address] Loyda Lennon M.D. [address] [place] [address] 01/24/2024 8:15 AM CDT Lab Department of Oncology in [place], [place] [address] [place] [address] Loyda Lennon M.D. [address] [place] [phone] 01/24/2024 9:15 AM CDT Infusion Department of Oncology in [place], [place] [address] [place] [address] Loyda Lennon M.D. [address] [place] [phone] Scheduled Procedures Name Priority Associated Diagnoses Date/Ti me HEPATECTOMY RESECTION LIVER Cholangiocarcinoma (HCC) ULTRASOUND LIVER Cholangiocarcinoma (HCC) RECONSTRUCTION PORTAL VEIN Cholangiocarcinoma (HCC) documented as of this encounter Visit Diagnoses Not on filedocumented in this encounter Additional Health Concerns Infection Onset Date Last Indicated Resolved Time Protective Environment 11/07/2022 11/07/2022 documented as of this encounter Care Teams Executive Housekeeper Relationship Specialty Start Date End Date Mark Colorado M.D. [address] [place] [phone] PCP - General Family Medicine 11/09/22 documented as of this encounter
--- OUTSIDE RECORDS SUMMARY | 2023-11-05 22:05 | XMS_ITS | Encounter Summary ---
Author Organization [facility] Address [address] [place] [address] Care Team Providers Care Barge Loader Name Role Phone Mark Colorado M.D. Primary Care Provider [phone] Reason for Referral * Outpatient (Routine) - Closed Specialty Diagnoses / Procedures Referred By Contreema t Referred To Contact Oncology Diagnoses Cholangiocarcinoma (HCC) Dolores Rosario APRN C.N.P., M.S. 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 I have a [facility] place to live 10/22/2023 Sex and Gender Information Value Date Recorded Sex Assigned at Male 09/10/2022 12:02 PM CDT Gender Identity Male 09/10/2022 12:02 PM CDT Sexual Orientation Straight 09/10/2022 12 :02 PM CDT documented as of this encounter Plan of Treatment Upcoming Encounters Date Type Department Care Team (Latest Contact Info) Description 11/07/2023 3:15 PM CDT Clinical Communication Virtual Review in [place], [place] [address] [place] [address] 11/15/2023 6:40 AM CDT Lab Department of Laboratory Medicine and Pathology, [facility], in [place], [place] [address] [place] [phone] Loyda Lennon M.D. [address] [place] [phone] 11/15/2023 8:20 AM CDT Office Visit Department of Oncology in [place], [place] [address] [place] [phone] Manjit Velasquez, GERIATRIC CASE MANAGER, C.N.P., D.N.P. [address] [place] [phone] 11/15/2023 9:30 AM CDT Comprehensive Visit Department of Palliative Care in [place], [place] [address] [place] [phone] Patty Gomez APRN, C.NAleta., M.S.N. [address] [place] [phone] 11/15/2023 2:15 PM CDT Infusion Department of Oncology in [place], [place] [address] [place] [phone] Loyda Lennon M.D. [address] [place] [phone] 11/22/2023 7:30 AM CDT Lab Department of Oncology in [place], [place] [address] [place] [phone] Loyda Lennon M.D. [address] [place] [phone] 11/22/2023 8:45 AM CDT Infusion Department of Oncology in [address] [phone] Loyda Lennon M.D. [address] [place] [phone] 11/28/2023 3:30 PM CDT Clinical Communication Virtual Review in [place], [place] [address] [place] [address] 11/29/2023 9:00 AM CDT Procedure visit Department of Urology in [place], [place] [address] [place] [phone] Mark Colorado M.D. [address] [place] [address] [place] [phone] 11/29/2023 11:20 AM CDT Lab Department of Laboratory Medicine and Pathology, [facility], in [place], [place] [address] [place] [phone] Loyda Lennon M.D. [address] [place] [phone] 11/29/2023 11:30 AM CDT Lab Department of Oncology in [place], [place] [address] [place] [phone] Loyda Lennon M.D. [address] [place] [phone] 11/29/2023 1:00 PM CDT Infusion Department of Oncology in [place], [place] [address] [place] [phone] Loyda Lennon M.D. [address] [place] [phone] 12/03/2023 1:45 PM CDT Comprehensive Visit Department of Urology in [address] [phone] Mona Egan P.A.-C. [address] [place] [phone] 12/05/2023 1:20 PM CDT Comprehensive Visit Department of Oncology in [place], [place] [address] [place] [phone] Letty Kate M.D. [address] [place] [phone] 12/10/2023 3:00 PM CDT Clinical Communication Virtual Review in [place], [place] [address] [place] [address] 12/10/2023 3:30 PM CDT Procedure visit Department of Urology in [place], [place] [address] [place] [phone] Mark Colorado M.D. [address] [place] [address] [place] [address] 12/12/2023 3:45 PM CDT Appointment Department of Radiology, [facility], in [place], [place] [address] [place] [phone] Na Hernandez M.D., Ph.D. [address] [place] [phone] 12/13/2023 6:00 AM CDT Lab Department of Laboratory Medicine and Pathology, [facility] in [place], [place] [address] [place] [phone] Lodya Lennon M.D. [address] [place] [phone] 12/13/2023 6:20 AM CDT Lab Department of Infusion Therapy in [place], [place] [address] [place] [phone] Loyda Lennon M.D. [address] [place] [phone] 12/13/2023 11:10 AM CDT Office Visit Department of Oncology in [place], [place] [address] [place] [phone] Na Hernandez M.D., Ph.D. [address] [place] [phone] 12/13/2023 1:00 PM CDT Infusion Department of Oncology in [place], [place] [address] [place] [phone] Loyda Lennon M.D. [address] [place] [phone] 12/20/2023 9:20 AM CDT Lab Department of Infusion Therapy in [place], [place] [address] [place] [phone] Loyda Lennon M.D. [address] [place] [phone] 12/20/2023 10:30 AM CDT Infusion Department of Oncology in [place], [place] [address] [place] [phone] Loyda Lennon M.D. [address] [place] [phone] 12/25/2023 10:30 AM CDT Appointment Division of Gastroenterology in [place], [place] [address] [place] [phone] Na Hernandez M.D., Ph.D. [address] [place] [phone] 12/27/2023 10:15 AM CDT Lab Department of Oncology in [place], [place] [address] [place] [phone] Loyda Lennon M.D. [address] [place] [phone] 12/27/2023 10:30 AM CDT Lab Department of Laboratory Medicine and Pathology, [facility], in [place], [place] [address] [place] [address] Loyda Lennon M.D. [address] [place] [phone] 12/27/2023 11:45 AM CDT Infusion Department of Oncology in [place], [place] [address] [place] [phone] Loyda Lennon M.D. [address] [place] [phone] 01/03/2024 1:00 PM CDT Clinical Communication Virtual Review in [place], [place] [address] [place] [address] 01/10/2024 8:00 AM CDT Lab Department of Infusion Therapy in [address] [phone] Loyda Lennon M.D. [address] [place] [phone] 01/10/2024 8:20 AM CDT Lab Department of Laboratory Medicine and Pathology, [facility] in [address] [phone] Loyda Lennon M.D. [address] [place] [phone] 01/10/2024 10:30 AM CDT Office Visit Department of Oncology in [address] [phone] Na Hernandez M.D., Ph.D. [address] [place] [phone] 01/10/2024 11:45 AM CDT Infusion Department of Oncology in [address] [phone] Loyda Lennon M.D. [address] [place] [phone] 01/17/2024 8:45 AM CDT Lab Department of Oncology in [address] [phone] Loyda Lennon M.D. [address] [place] [phone] 01/17/2024 10:00 AM CDT Infusion Department of Oncology in [place], [place] [address] [place] [phone] Loyda Lennon M.D. [address] [place] [phone] 01/24/2024 8:00 AM CDT Lab Department of Laboratory Medicine and Pathology, [facility] in [place], [place] [address] [place] [phone] Loyda Lennon M.D. [address] [place] [phone] 01/24/2024 8:15 AM CDT Lab Department of Oncology in [place], [place] [address] [place] [phone] Loyda Lennon M.D. [address] [place] [phone] 01/24/2024 9:15 AM CDT Infusion Department of Oncology in [place], [place] [address] [place] [phone] Loyda Lennon M.D. [address] [place] [phone] Scheduled Procedures Name Priority Associated Diagnoses Date/Ti me HEPATECTOMY RESECTION LIVER Cholangiocarcinoma (HCC) ULTRASOUND LIVER Cholangiocarcinoma (HCC) RECONSTRUCTION PORTAL VEIN Cholangiocarcinoma (HCC) Scheduled Referrals Name Type Priority Associated Diagnoses Orde r Schedule Oncology office visit (clinic) Outpatient Referral Routine Cholangiocarcinoma (HCC) Expected: 11/01/2023, Expires: 01/28/2025 documented as of this encounter Results * Urinalysis Dipstick with Microscopic, Research (11/01/2023 9:38 AM CDT) DMR Source, U Urine, Urine, Clean Catch 11/01/2023 [...] This test has been modified from the c engineer's instructions. Its performance characteristics were determined by [facility] in a manner consistent with CLIA requirements. This test has not been cleared or approved by the U.S. Food and Drug Administration. Specific [place] 1.014 1.002 - 1.030 11/01/2023 10:13 AM CDT DTL pH, U 5.0 5.0 - 8.0 11/01/2023 10:13 AM CDT DTL Urobilinogen Normal Normal mg/dL 11/01/2023 10:13 AM CDT DTL Leukocyte Esterase Negative Negative 2023 10:13 AM CDT DTL Urine (Urine, Clean Catch) 11/01/2023 9:38 AM CDT 11/01/2023 9:51 AM CDT Na Hernandez M.D., Ph.D. LAB URINE O RDERABLES [facility] [place] [address] [place] [address], [facility] [address] [place] [address] * PSA (Prostate-Specific Antigen) Screen (11/01/2023 9:20 [...] M.S. LAB BLOOD ADD-ON Performing Organization Address City/[facility]/[place] [address] * (ABNORMAL) NT-Pro B-Type Natriuretic Peptide (BNP) (11/01/2023 9:20 AM CDT) NT-Pro BNP 550(H) <=540 pg/mL 11/01/2023 10:30 [...] BLOOD A DD-ON Performing Organization Address [facility] Co de Phone Number [facility] [place] [address] [place] [address], [facility] [place] [address] * Troponin I, High Sensitivity (11/01/2023 9:20 AM CDT) TROPONIN I, HIGH SENSITIVITY, P 7 <=20 ng/L 11/01/2023 12:05 PM CDT DTL Blood (Blood, Venous) 11/01/2023 9:20 AM CDT 11/01/2023 9:59 AM CDT Na Hernandez M.D., Ph.D. LAB BLOOD N ON ADD-ON Performing Organization Address City/[facility]/ZIP Co de Phone Number [facility] [place] [address] 200 [place] [address] * Lipase (11/01/2023 9:20 AM CDT) Pathologist [facility] Lipase, S 58 13 - 60 U/L 11/01/2023 10:30 AM CDT DTL Blood (Blood, Venous) 11/01/2023 9:20 AM CDT 11/01/2023 9:56 AM CDT Na Hernandez M.D., Ph.D. LAB BLOOD A DD-ON Performing Organization Address [facility] Co de Phone Number [facility] [place] [address] [place], [place] [phone] [place] [address] 200 [place] [address] * Amylase, Total (11/01/2023 9:20 AM CDT) Pathologist [facility] Amylase, Total, S 47 28 - 100 U/L 11/01/2023 10:30 AM CDT DTL Blood (Blood, Venous) 11/01/2023 9:20 AM CDT 11/01/2023 9:56 AM CDT Na Hernandez M.D., Ph.D. LAB BLOOD A DD-ON Performing Organization Address City/[facility]/ZIP Co de Phone Number [facility] [place] [address] [place], [place] [phone] [place] [address] 200 [place] [address] * Phosphorus Inorganic (11/01/2023 9:20 AM CDT) Phosphorus (Inorganic), S 3.2 2.5 - 4.5 mg/dL 11/01/2023 10:30 AM CDT DTL Blood (Blood, Venous) 11/01/2023 9:20 AM CDT 11/01/2023 9:56 AM CDT Na Hernandez M.D., Ph.D. LAB BLOOD A DD-ON [facility] [place] [address] [place], [place] [phone] [place] [address] 200 [place] [address] * Magnesium (11/01/2023 9:20 AM CDT) Pathologist [facility] Magnesium, S 2.0 1.7 - 2.3 mg/dL 11/01/2023 10:30 AM CDT DTL Blood (Blood, Venous) 11/01/2023 9:20 AM CDT 11/01/2023 9:56 AM CDT Na Hernandez M.D., Ph.D. LAB BLOOD A DD-ON [facility] [place] [address] [place], [place] [phone] [place] [address] 200 [place] [address] * Uric Acid (11/01/2023 9:20 AM CDT) Uric Acid, S 6.2 3.7 - 8.0 mg/dL 11/01/2023 10:30 AM CDT DTL Blood (Blood, Venous) 11/01/2023 9:20 AM CDT 11/01/2023 9:56 AM CDT Na Hernandez M.D., Ph.D. LAB BLOOD A DD-ON Performing Organization Address City/[facility]/ZIP Co de Phone Number [facility] [place] 200 [place] [address] * LD (Lactate Dehydrogenase) (11/01/2023 9:20 AM CDT) [facility] LD 191 122 - 222 U/L 11/01/2023 10:20 AM CDT DTL Blood (Blood, Venous) 11/01/2023 9:20 AM CDT 11/01/2023 9:56 AM CDT Na Hernandez M.D., Ph.D. LAB BLOOD N ON ADD-ON Performing Organization Address [facility] Co de Phone Number [facility] [place] [address] [place] [address] * (ABNORMAL) Comprehensive Metabolic Panel (11/01/2023 9:20 AM CDT) [facility] Potassium, S 4.7 3.6 - 5.2 mmol/L [...] Hernandez M.D., Ph.D. LAB BLOOD A DD-ON [facility] [place] [address] [place] [address], [facility] [address] [place] [address] * (ABNORMAL) CBC with Differential, Blood (11/01/2023 [...] Hernandez M.D., Ph.D. LAB BLOOD A DD-ON [facility] [place] [address] [place] [address], [facility] DTL [facility] [address] [place] [address] [facility] [address] [place] [address] documented in this encounter Visit Diagnoses Diagnosis Cholangiocarcinoma (HCC)- [facility] Current Drug Therapy, Chemotherapy Peritoneal Carcinomatosis (HCC) Neutropenia Chemotherapy Induced (HCC) documented in this encounter Additional Health Concerns Infection Onset Date Last Indicated Resolved Time Protective Environment 11/07/2022 11/07/2022 documented as of this encounter Care Teams Barge Loader Relationship Specialty Start Date End Date Mark Colorado M.D. [address] [place] [address] PCP - General Family Medicine 11/09/22 documented as of this encounter
--- OUTSIDE RECORDS SUMMARY | 2023-11-05 22:05 | XMS_ITS | Encounter Summary ---
Author Organization [facility] Address [address] [place] [address] Care Team Providers Care Facility Mechanic Name Role Phone Mark Colorado M.D. Primary Care Provider [phone] Reason for Visit * Outpatient (Routine) - Closed Specialty Diagnoses / Procedures Referred By Chloe hinkle Referred To Contact Oncology Diagnoses Cholangiocarcinoma (HCC) Na Hernandez M.D., Ph.D. [address] [place] [address] [facility] Referral ID Status Reason Start Date Expiration Date Visits Re quested Visits Authorized [id number] Closed 10/22/2023 04/22/2025 1 1 Encounter Details Date Type Department Care Team (Latest Contact Info) Description 10/29/2023 7:20 AM CDT Office Visit Department of Oncology in [place], [place] [address] [place] [address] Dolores Rosario, KAYLEE, C.N.P., M.S. [address] [place] [address] Cholangiocarcinoma (HCC) Social History Tobacco Use Types Packs/Day Years Used Date Smoking Tobacco: Never Passive Smoke Exposure: Never Smokeless Tobacco: Never Alcohol Use Standard Drinks/Week Comments Not Currently 0 (1 standard drink = 0.6 oz pur e alcohol) occ [facility] Utilities Answer Date Recorded In the past [...] your living situation today? I have a [facility] place to live 10/22/2023 Sex and Gender Information Value Date Recorded Sex Assigned at Male 09/10/2022 12:02 PM CDT Gender Identity Male 09/10/2022 12:02 PM CDT Sexual Orientation Straight 09/10/2022 12 :02 PM CDT documented as of this encounter Last Filed Vital Signs Vital Sign Reading Time Taken Comments Blood Pressure 163/78 10/29/2023 7:08 AM CDT Pulse 68 10/29/2023 7:08 AM CDT Temperature 37 ??C (98.6 ??F) 10/29/2023 7:08 AM CDT Respiratory Rate 17 10/29/2023 7:08 AM CDT Oxygen Saturation 97% 10/29/2023 7:08 AM CDT Inhaled Oxygen Concentration - - Weight 89 kg (196 lb 3.4 oz) 10/29/2023 7:08 AM CDT Height 182.8 cm (5' 11.97) 10/29/2023 7:08 AM C DT Body Mass Index 26.63 10/29/2023 7:08 AM CDT documented in this encounter Progress Notes * Dolores Rosario, KAYLEE, C.N.P., M.S. - 10/29/2023 7:20 AM CDT SUBJECTIVE PRIMARY CARE PHYSICIAN Mark Colorado M.D. LOCAL ONCOLOGIST No care [employer] team member to display PRIMARY [employer] ONCOLOGIST Na Hernandez M.D., Ph.D. CHIEF COMPLAINT / REASON FOR VISIT Jorge Luis Sepulveda is a 68 y.o. male who presents for evaluation while on a clinical trial for cholangiocarcinoma. Cancer Staging Cholangiocarcinoma (HCC) Staging form: [...] Genotyping POSITIVE Germline genetic testing in 2022; [employer] Cancer + RNA panel from [employer] 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 One Variant of Uncertain Significance (VUS) identified in the BRCA1 gene, specifically c.3607C>G 06/18/2023 - Research Study Participant Research Study: A Study of CTX-009 in Combination With Paclitaxel in Adult Patients With Unresectable Advanced, Metastatic or Recurrent Biliary Tract Cancers (AGRICULTURAL ECONOMICS PROFESSOR-002) ([id number]) Treatment Protocol: [facility] CTX-009-002 ( CTX-009 / PACLitaxel ) 1.) 10/20-: Hospitalized for cholangitis. ERCP: 2 intrahepatic stents exchanged; 2 temporary plastic stents placed. Blood cultures: + G-bacteremia. (needs stent exchange in 12 weeks per GI) INTERVAL HISTORY: By: Renetta Hayden RN Jorge Luis Sepulveda presents for evaluation for cycle 8 day 15 for clinical trial CTX-009. Mr. Sepulveda presents today with increased fatigue due to insomnia following his course of antibiotics for cholangitis. He endorses having 2/10 abdominal pain when lying and 4-5/10 pain when sitting/pressure on lowerabdomen. He takes Tylenol BID and states this makes his pain more manageable. He has not needed to take his hydromorphone since his stent placement on 10/21. He has been experiencing 4-5 loose bowel movements. He experiences intermittent nausea, which is well managed with Zofran. He declines having any emesis episodes. His blood pressures are elevated today in the 160s/70s. During his hospitalization 10/21-10/23 his home lisinopril dose was discontinued. He will resume this medication today and will continue to monitor home blood pressures. He declines having any headaches, dizziness, lightheadedness, chest pain, or shortness of breath. He expresses concern for urinary retention at this time, with feelings of bladder fullness. These findings have been reviewed with Dolores Rosario APRN, CNP, MS. Interval History After oral report I directly visited with Mr. Sepulveda and agree with the above history. He is continuing to take MiraLAX daily. He forgot to take his amlodipine medication this morning. He reports thatthe urinary issue is less if he stands to void. This has been present before he started the clinical trial. The following portions of the patient's history [...] sprays into each nostrildaily. Daily prn glucosamine [id number]-[id number]-ube 500-200-150 mg tablet Take 1 tablet by mouth daily. HYDROmorphone (Dilaudid) 2 mg tablet Take 1 tablet (2 mg total) by mouth every 4 (four) hours as needed for pain Indication: Chronic Pain/Nonacute Pain. 42 tablet 0 magnesium chloride (SLOW-MAG) 71.[address] tablet [...] by mouth. Daily prn) 90 tablet 2 [] sulfamethoxazole-trimethoprim (Bactrim DS) 800-160 mg per tablet Take 1 tablet by mouth every 12 (twelve) hours for 4 days Indications: Intra- abdominal infection, community acquired. 8 tablet 0 tamsulosin (FLOMAX) 0.4 mg 24 hr capsule Take 1 capsule (0.4 mg total) by mouth daily. (Patient taking differently: Take 0.4 mg by mouth every evening.) 90 capsule 3 No current facility-administered medications on file prior to visit. REVIEW OF SYSTEMS REVIEW OF SYSTEMS OBJECTIVE BP (!) 163/78 (BP Location: Right arm, Patient Position: Sitting, Cuff Size: Large) Pulse 68 Temp 37 ??C (Tympanic) Resp 17 Ht 182.8 cm Wt 89 kg SpO2 97% BMI 26.63 kg/m?? PHYSICAL EXAMINATION Physical Exam General: Well appearing 68 y.o. who is in no apparent distress. Appears to be at ECOGperformance status 1 Skin: Non-jaundiced. No rashes. Eyes: No scleral icterus ENT: Oral mucosa is pink and moist. No lesions, ulcerations or thrush. Lungs: Non-labored, absent of a cough. Extremities: No edema Neuro: Alert and oriented x 3. Calm, interactive and appropriate. No focal neuro deficits. DIAGNOSTICS LABORATORY DATA: Lab data reviewed. ASSESSMENT / PLAN #1 Cholangiocarcinoma (HCC) Prior to meeting with Mr. Sepulveda, I had the opportunity to review past medical record and laboratoryresults. He is due to resume the treatment on a clinical trial for metastatic pancreatic cancer. Hewas recently in the hospital and due to the fact that he was septic he had his lisinopril withheld.He also forgot to take his amlodipine this morning. It is difficult to determine if the elevated BPis a result of failure of the past medical management. So at this time we will postpone therapy until later this week and then see if his blood pressure is indeed elevated despite being on HTN medications. If the blood pressure remains elevated would need a dose modification of the study drug. He does have a blood pressure cuff at home and he will continue to monitor it on a daily basis. He will stop taking the MiraLAX that he has been taking daily. He had started that when he began oral narcotic pain medication. He is no longer on a narcotic to treat the pain I believe that the diarrhea is partially due to that. We also discussed that a person can develop diarrhea as a result of anti-biotic therapy. His last dosage of anti-biotic was yesterday. In regards to the urinary symptoms I have contacted the research pharmacist and there has been no documented enlarged prostate due to the research medication. His later informed us that his urinary symptoms were present before starting on the research medication. He will continue to treat the abdominal pain with OTC pain medications as that has been affective. Will see him back in clinic later this week with repeat blood testing. Did spend a significant time during the visit to explain various causes for the various issues. Mr. Sepulveda is in full agreement with the plan and denies any further questions or concerns. Has our telephone number to contact us should they have any further questions or concerns. PATIENT EDUCATION: Ready to learn, no apparent learning barriers were identified; learning preferences include listening. Explained diagnosis and treatment plan; patient expressed understanding of the content. ADMINISTRATIVE BILLING I personally spent 60 minutes in care of the patient today. Time includes both non face to face andface to face patient care. documented in this encounter Plan of Treatment Upcoming Encounters Date Type Department Care Team (Latest Contact Info) Description 11/07/2023 3:15 PM CDT Clinical Communication Virtual Review in [address] [phone] 11/15/2023 6:40 AM CDT Lab Department of Laboratory Medicine and Pathology, [facility] in [address] [phone] Loyda Lennon M.D. [address] [place] [phone] 11/15/2023 8:20 AM CDT Office Visit Department of Oncology in [address] [phone] Manjit Velasquez APRN, C.N.P., D.N.P. [address] [place] [phone] 11/15/2023 9:30 AM CDT Comprehensive Visit Department of Palliative Care in [address] [phone] Patty Gomez APRN, C.N.P., M.S.N. [address] [place] [phone] 11/15/2023 2:15 PM CDT Infusion Department of Oncology in [place], [place] [address] [place] [phone] Loyda Lennon M.D. [address] [place] [phone] 11/22/2023 7:30 AM CDT Lab Department of Oncology in [place], [place] [address] [place] [phone] Loyda Lennon M.D. [address] [place] [phone] 11/22/2023 8:45 AM CDT Infusion Department of Oncology in [place], [place] [address] [place] [phone] Loyda Lennon M.D. [address] [place] [phone] 11/28/2023 3:30 PM CDT Clinical Communication Virtual Review in [place], [place] [address] [place] [address] 11/29/2023 9:00 AM CDT Procedure visit Department of Urology in [place], [place] [address] [place] [phone] Mark Colorado M.D. [facility] [place] [phone] 11/29/2023 11:20 AM CDT Lab Department of Laboratory Medicine and Pathology, [facility], in [place], [place] [address] [place] [phone] Loyda Lennon M.D. [address] [place] [phone] 11/29/2023 11:30 AM CDT Lab Department of Oncology in [place], [place] [address] [place] [phone] Loyda Lennon M.D. [address] [place] [phone] 11/29/2023 1:00 PM CDT Infusion Department of Oncology in [place], [place] [address] [place] [phone] Loyda Lennon M.D. [address] [place] [phone] 12/03/2023 1:45 PM CDT Comprehensive Visit Department of Urology in [place], [place] [address] [place] [phone] Mona Egan P.A.-C. [address] [place] [phone] 12/05/2023 1:20 PM CDT Comprehensive Visit Department of Oncology in [place], [place] [address] [place] [phone] Letty Kate M.D. [address] [place] [phone] 12/10/2023 3:00 PM CDT Clinical Communication Virtual Review in [place], [place] [address] [place] [address] 12/10/2023 3:30 PM CDT Procedure visit Department of Urology in [place], [place] [address] [place] [phone] Mark Colorado M.D. [facility] [place] [phone] 12/12/2023 3:45 PM CDT Appointment Department of Radiology, [facility], in [place], [place] [address] [place] [phone] Na Hernandez M.D., Ph.D. [address] [place] [phone] 12/13/2023 6:00 AM CDT Lab Department of Laboratory Medicine and Pathology, [facility] in [place], [place] [address] [place] [phone] Loyda Lennon M.D. [address] [place] [phone] 12/13/2023 6:20 AM CDT Lab Department of Infusion Therapy in [place], [place] [address] [place] [phone] Loyda Lennon M.D. [address] [place] [phone] 12/13/2023 11:10 AM CDT Office Visit Department of Oncology in [place], [place] [address] [place] [phone] Na Hernandez M.D., Ph.D. [address] [place] [phone] 12/13/2023 1:00 PM CDT Infusion Department of Oncology in [address] [phone] Loyda Lennon M.D. [address] [place] [phone] 12/20/2023 9:20 AM CDT Lab Department of Infusion Therapy in [place], [place] [address] [place] [phone] Loyda Lennon M.D. [address] [place] [phone] 12/20/2023 10:30 AM CDT Infusion Department of Oncology in [place], [place] [address] [place] [phone] Loyda Lennon M.D. [address] [place] [phone] 12/25/2023 10:30 AM CDT Appointment Division of Gastroenterology in [address] [phone] Na Hernandez M.D., Ph.D. [address] [place] [phone] 12/27/2023 10:15 AM CDT Lab Department of Oncology in [place], [place] [address] [place] [phone] Loyda Lennon M.D. [address] [place] [phone] 12/27/2023 10:30 AM CDT Lab Department of Laboratory Medicine and Pathology, [facility] in [address] [phone] Loyda Lennon M.D. [address] [place] [phone] 12/27/2023 11:45 AM CDT Infusion Department of Oncology in [address] [phone] Loyda Lennon M.D. [address] [place] [phone] 01/03/2024 1:00 PM CDT Clinical Communication Virtual Review in [address] [phone] 01/10/2024 8:00 AM CDT Lab Department of Infusion Therapy in [address] [phone] Loyda Lennon M.D. [address] [place] [phone] 01/10/2024 8:20 AM CDT Lab Department of Laboratory Medicine and Pathology, [facility] in [place], [place] [address] [place] [phone] Loyda Lennon M.D. [address] [place] [phone] 01/10/2024 10:30 AM CDT Office Visit Department of Oncology in [place], [place] [address] [place] [phone] Na Hernandez M.D., Ph.D. [address] [place] [phone] 01/10/2024 11:45 AM CDT Infusion Department of Oncology in [place], [place] [address] [place] [phone] Loyda Lennon M.D. [address] [place] [phone] 01/17/2024 8:45 AM CDT Lab Department of Oncology in [place], [place] [address] [place] [phone] Loyda Lennon M.D. [address] [place] [phone] 01/17/2024 10:00 AM CDT Infusion Department of Oncology in [place], [place] [address] [place] [phone] Loyda Lennon M.D. [address] [place] [phone] 01/24/2024 8:00 AM CDT Lab Department of Laboratory Medicine and Pathology, [facility] in [place], [place] [address] [place] [phone] Loyda Lennon M.D. [address] [place] [address] 01/24/2024 8:15 AM CDT Lab Department of Oncology in [place], [place] [address] [place] [address] Loyda Lennon M.D. [address] [place] [phone] 01/24/2024 9:15 AM CDT Infusion Department of Oncology in [place], [place] [address] [place] [phone] Loyda Lennon M.D. [address] [place] [phone] Scheduled Procedures Name Priority Associated Diagnoses Date/Ti me HEPATECTOMY RESECTION LIVER Cholangiocarcinoma (HCC) ULTRASOUND LIVER Cholangiocarcinoma (HCC) RECONSTRUCTION PORTAL VEIN Cholangiocarcinoma (HCC) documented as of this encounter Visit Diagnoses Diagnosis Cholangiocarcinoma (HCC) documented in this encounter Additional Health Concerns Infection Onset Date Last Indicated Resolved Time Protective Environment 11/07/2022 11/07/2022 documented as of this encounter Care Teams Facility Mechanic Relationship Specialty Start Date End Date Mark Colorado M.D. [address] [place] [address] PCP - General Family Medicine 11/09/22 documented as of this encounter
--- OUTSIDE RECORDS SUMMARY | 2023-11-05 22:05 | XMS_ITS | Encounter Summary ---
Author Organization [facility] Address [address] [place] [address] Care Team Providers Care Frozen Yogurt Maker Name Role Phone Mark Colorado M.D. Primary Care Provider [phone] Reason for Visit * Reason Onset Date Comments Communication 10/28/2023 Encounter Details Date Type Department Care Team (Late st Contact Info) Description 10/28/2023 Clinical Communication Department of Family Medicine, [facility], in [place], [place] [address] [place] [address] Mark Colorado M.D. [address] [place] [address] Communication Social History Tobacco Use Types Packs/Day Years Used Date Smoking Tobacco: Never Passive Smoke Exposure: Never Smokeless Tobacco: Never Alcohol Use Standard Drinks/Week Comments Not Currently 0 (1 standard drink = 0.6 oz pur e alcohol) occ [facility] Utilities Answer Date Recorded In [...] your living situation today? I have a [facility] place to live 10/22/2023 Sex and Gender Information Value Date Recorded Sex Assigned at Male 09/10/2022 12:02 PM CDT Gender Identity Male 09/10/2022 12:02 PM CDT Sexual Orientation Straight 09/10/2022 12 :02 PM CDT documented as of this encounter Plan of Treatment Upcoming Encounters Date Type Department Care Team (Latest Contact Info) Description 11/07/2023 3:15 PM CDT Clinical Communication Virtual Review in [place], [place] [address] [place] [address] 11/15/2023 6:40 AM CDT Lab Department of Laboratory Medicine and Pathology, [facility] in [place], [place] [address] [place] [phone] Loyda Lennon M.D. [address] [place] [address] 11/15/2023 8:20 AM CDT Office Visit Department of Oncology in [place], [place] [address] [place] [phone] Manjit Velasquez APRN, C.N.P., D.N.P. [address] [place] [address] 11/15/2023 9:30 AM CDT Comprehensive Visit Department of Palliative Care in [place], [place] [address] [place] [phone] Patty Gomez APRN, C.N.P., M.S.N. [address] [place] [phone] 11/15/2023 2:15 PM CDT Infusion Department of Oncology in [address] [address] Loyda Lennon M.D. [address] [place] [address] 11/22/2023 7:30 AM CDT Lab Department of Oncology in [place], [place] [address] [place] [address] Loyda Lennon M.D. [address] [place] [address] 11/22/2023 8:45 AM CDT Infusion Department of Oncology in [address] [address] Loyda Lennon M.D. [address] [place] [address] 11/28/2023 3:30 PM CDT Clinical Communication Virtual Review in [address] [address] 11/29/2023 9:00 AM CDT Procedure visit Department of Urology in [address] [address] Mark Colorado M.D. [address] [place] [address] 11/29/2023 11:20 AM CDT Lab Department of Laboratory Medicine and Pathology, [facility], in [place], [place] [address] [place] [phone] Loyda Lennon M.D. [address] [place] [phone] 11/29/2023 11:30 AM CDT Lab Department of Oncology in [place], [place] [address] [place] [phone] Loyda Lennon M.D. [address] [place] [address] 11/29/2023 1:00 PM CDT Infusion Department of Oncology in [place], [place] [address] [place] [address] Loyda Lennon M.D. [address] [place] [address] 12/03/2023 1:45 PM CDT Comprehensive Visit Department of Urology in [place], [place] [address] [place] [phone] Mona Egan P.A.-C. [address] [place] [address] 12/05/2023 1:20 PM CDT Comprehensive Visit Department of Oncology in [place], [place] [address] [place] [phone] Letty Kate M.D. [address] [place] [address] 12/10/2023 3:00 PM CDT Clinical Communication Virtual Review in [place], [place] [address] [place] [address] 12/10/2023 3:30 PM CDT Procedure visit Department of Urology in [place], [place] [address] [place] [phone] Mark Colorado M.D. [facility] [place] [phone] 12/12/2023 3:45 PM CDT Appointment Department of Radiology, [facility], in [place], [place] [address] [place] [phone] Na Hernandez M.D., Ph.D. [address] [place] [address] 12/13/2023 6:00 AM CDT Lab Department of Laboratory Medicine and Pathology, [facility], in [place], [place] [address] [place] [phone] Loyda Lennon M.D. [address] [place] [address] 12/13/2023 6:20 AM CDT Lab Department of Infusion Therapy in [place], [place] [address] [place] [phone] Loyda Lennon M.D. [address] [place] [address] 12/13/2023 11:10 AM CDT Office Visit Department of Oncology in [place], [place] [address] [place] [phone] Na Hernandez M.D., Ph.D. [address] [place] [address] 12/13/2023 1:00 PM CDT Infusion Department of Oncology in [address] [address] Loyda Lennon M.D. [address] [place] [address] 12/20/2023 9:20 AM CDT Lab Department of Infusion Therapy in [place], [place] [address] [place] [phone] Loyda Lennon M.D. [address] [place] [address] 12/20/2023 10:30 AM CDT Infusion Department of Oncology in [place], [place] [address] [place] [phone] Loyda Lennon M.D. [address] [place] [address] 12/25/2023 10:30 AM CDT Appointment Division of Gastroenterology in [place], [place] [address] [place] [phone] Na Hernandez M.D., Ph.D. [address] [place] [phone] 12/27/2023 10:15 AM CDT Lab Department of Oncology in [place], [place] [address] [place] [phone] Loyda Lennon M.D. [address] [place] [address] 12/27/2023 10:30 AM CDT Lab Department of Laboratory Medicine and Pathology, [facility], in [place], [place] [address] [place] [address] Loyda Lennon M.D. [address] [place] [address] 12/27/2023 11:45 AM CDT Infusion Department of Oncology in [address] [address] Loyda Lennon M.D. [address] [place] [address] 01/03/2024 1:00 PM CDT Clinical Communication Virtual Review in [place], [place] [address] [place] [address] 01/10/2024 8:00 AM CDT Lab Department of Infusion Therapy in [place], [place] [address] [place] [phone] Loyda Lennon M.D. [address] [place] [address] 01/10/2024 8:20 AM CDT Lab Department of Laboratory Medicine and Pathology, [facility] in [place], [place] [address] [place] [address] Loyda Lennon M.D. [address] [place] [address] 01/10/2024 10:30 AM CDT Office Visit Department of Oncology in [address] [address] Na Hernandez M.D., Ph.D. [address] [place] [phone] 01/10/2024 11:45 AM CDT Infusion Department of Oncology in [place], [place] [address] [place] [phone] Loyda Lennon M.D. [address] [place] [address] 01/17/2024 8:45 AM CDT Lab Department of Oncology in [address] [address] Loyda Lennon M.D. [address] [place] [address] 01/17/2024 10:00 AM CDT Infusion Department of Oncology in [address] [address] Loyda Lennon M.D. [address] [place] [address] 01/24/2024 8:00 AM CDT Lab Department of Laboratory Medicine and Pathology, [facility], in [place], [place] [address] [place] [address] Loyda Lennon M.D. [address] [place] [phone] 01/24/2024 8:15 AM CDT Lab Department of Oncology in [place], [place] [address] [place] [address] Loyda Lennon M.D. [address] [place] [address] 01/24/2024 9:15 AM CDT Infusion Department of Oncology in [place], [place] [address] [place] [address] Loyda Lennon M.D. [address] [place] [phone] Scheduled Procedures Name Priority Associated Diagnoses Date/Ti me HEPATECTOMY RESECTION LIVER Cholangiocarcinoma (HCC) ULTRASOUND LIVER Cholangiocarcinoma (HCC) RECONSTRUCTION PORTAL VEIN Cholangiocarcinoma (HCC) documented as of this encounter Visit Diagnoses Not on filedocumented in this encounter Additional Health Concerns Infection Onset Date Last Indicated Resolved Time Protective Environment 11/07/2022 11/07/2022 documented as of this encounter Care Teams Frozen Yogurt Maker Relationship Specialty Start Date End Date Mark Colorado M.D. [address] [place] [address] PCP - General Family Medicine 11/09/22 documented as of this encounter
--- OUTSIDE RECORDS SUMMARY | 2023-11-05 22:05 | XMS_ITS | Encounter Summary ---
Author Organization [facility] Address [address] [place] [address] Care Team Providers Care Installer Technician Name Role Phone Mark Colorado M.D. Primary Care Provider [phone] Encounter Details Date Type Department Care Team (Late st Contact Info) Description 10/28/2023 Orders Only Department of Oncology in [place], [place] [address] [place] [address] Omero Lopes Social History Tobacco Use Types Packs/Day Years Used Date Smoking Tobacco: Never Passive Smoke Exposure: Never Smokeless Tobacco: Never Alcohol Use Standard Drinks/Week Comments Not Currently 0 (1 standard drink = 0.6 oz pur e alcohol) [facility] Utilities Answer Date Recorded In the past 12 months has [employer], gas, oil, or water [employer] threatened to shut off services in your [...] your living situation today? I have a [facility] place to live 10/22/2023 Sex and Gender Information Value Date Recorded Sex Assigned at Male 09/10/2022 12:02 PM CDT Gender Identity Male 09/10/2022 12:02 PM CDT Sexual Orientation Straight 09/10/2022 12 :02 PM CDT documented as of this encounter Plan of Treatment Upcoming Encounters Date Type Department Care Team (Latest Contact Info) Description 11/07/2023 3:15 PM CDT Clinical Communication Virtual Review in [place], [place] 200 [place] [address] 11/15/2023 6:40 AM CDT Lab Department of Laboratory Medicine and Pathology, [facility] in [address] [address] Loyda Lennon M.D. [address] [place] [address] 11/15/2023 8:20 AM CDT Office Visit Department of Oncology in [address] [address] Manjit Velasquez APRN, C.N.P., D.N.P. [address] [place] [phone] 11/15/2023 9:30 AM CDT Comprehensive Visit Department of Palliative Care in [address] [address] Patty Gomez APRN, C.N.P., M.S.N. [address] [place] [address] 11/15/2023 2:15 PM CDT Infusion Department of Oncology in [address] [address] Loyda Lennon M.D. [address] [place] [address] 11/22/2023 7:30 AM CDT Lab Department of Oncology in [place], [place] [address] [place] [address] Loyda Lennon M.D. [address] [place] [address] 11/22/2023 8:45 AM CDT Infusion Department of Oncology in [place], [place] [address] [place] [address] Loyda Lennon M.D. [address] [place] [address] 11/28/2023 3:30 PM CDT Clinical Communication Virtual Review in [place], [place] [address] [place] [address] 11/29/2023 9:00 AM CDT Procedure visit Department of Urology in [place], [place] [address] [place] [address] Mark Colorado M.D. [address] [place] [address] [place] [address] 11/29/2023 11:20 AM CDT Lab Department of Laboratory Medicine and Pathology, [facility], in [place], [place] [address] [place] [address] Loyda Lennon M.D. [address] [place] [address] 11/29/2023 11:30 AM CDT Lab Department of Oncology in [place], [place] [address] [place] [address] Loyda Lennon M.D. [address] [place] [address] 11/29/2023 1:00 PM CDT Infusion Department of Oncology in [place], [place] [address] [place] [address] Loyda Lennon M.D. [address] [place] [address] 12/03/2023 1:45 PM CDT Comprehensive Visit Department of Urology in [place], [place] [address] [place] [address] Mona Egan P.A.-C. [address] [place] [address] 12/05/2023 1:20 PM CDT Comprehensive Visit Department of Oncology in [place], [place] [address] [place] [address] Letty Kate M.D. [address] [place] [address] 12/10/2023 3:00 PM CDT Clinical Communication Virtual Review in [place], [place] [address] [place] [address] 12/10/2023 3:30 PM CDT Procedure visit Department of Urology in [place], [place] [address] [place] [phone] Mark Colorado M.D. [address] [place] [address] [place] [address] 12/12/2023 3:45 PM CDT Appointment Department of Radiology, [facility], in [place], [place] [address] [place] [address] Na Hernandez M.D., Ph.D. [address] [place] [address] 12/13/2023 6:00 AM CDT Lab Department of Laboratory Medicine and Pathology, [facility], in [place], [place] [address] [place] [address] Loyda Lennon M.D. [address] [place] [address] 12/13/2023 6:20 AM CDT Lab Department of Infusion Therapy in [place], [place] [address] [place] [address] Loyda Lennon M.D. [address] [place] [address] 12/13/2023 11:10 AM CDT Office Visit Department of Oncology in [place], [place] [address] [place] [address] Na Hernandez M.D., Ph.D. [address] [place] [address] 12/13/2023 1:00 PM CDT Infusion Department of Oncology in [place], [place] [address] [place] [address] Loyda Lennon M.D. [address] [place] [address] 12/20/2023 9:20 AM CDT Lab Department of Infusion Therapy in [place], [place] [address] [place] [address] Loyda Lennon M.D. [address] [place] [address] 12/20/2023 10:30 AM CDT Infusion Department of Oncology in [place], [place] [address] [place] [address] Loyda Lennon M.D. [address] [place] [address] 12/25/2023 10:30 AM CDT Appointment Division of Gastroenterology in [address] [address] Na Hernandez M.D., Ph.D. [address] [place] [address] 12/27/2023 10:15 AM CDT Lab Department of Oncology in [address] [address] Loyda Lennon M.D. [address] [place] [address] 12/27/2023 10:30 AM CDT Lab Department of Laboratory Medicine and Pathology, [address] [address] Loyda Lennon M.D. [address] [place] [address] 12/27/2023 11:45 AM CDT Infusion Department of Oncology in [address] [address] Loyda Lennon M.D. [address] [place] [address] 01/03/2024 1:00 PM CDT Clinical Communication Virtual Review in [place], [place] [address] [place] [address] 01/10/2024 8:00 AM CDT Lab Department of Infusion Therapy in [address] [address] Loyda Lennon M.D. [address] [place] [address] 01/10/2024 8:20 AM CDT Lab Department of Laboratory Medicine and Pathology, [facility], [place] [address] [place] [address] Loyda Lennon M.D. [address] [place] [address] 01/10/2024 10:30 AM CDT Office Visit Department of Oncology in [place], [place] [address] [place] [address] Na Hernandez M.D., Ph.D. [address] [place] [address] 01/10/2024 11:45 AM CDT Infusion Department of Oncology in [place], [place] [address] [place] [address] Loyda Lennon M.D. [address] [place] [address] 01/17/2024 8:45 AM CDT Lab Department of Oncology in [place], [place] [address] [place] [address] Loyda Lennon M.D. [address] [place] [address] 01/17/2024 10:00 AM CDT Infusion Department of Oncology in [place], [place] [address] [place] [address] Loyda Lennon M.D. [address] [place] [address] 01/24/2024 8:00 AM CDT Lab Department of Laboratory Medicine and Pathology, [facility], in [place], [place] [address] [place] [address] Loyda Lennon M.D. [address] [place] [address] 01/24/2024 8:15 AM CDT Lab Department of Oncology in [place], [place] [address] [place] [address] Loyda Lennon M.D. [address] [place] [address] 01/24/2024 9:15 AM CDT Infusion Department of Oncology in [place], [place] [address] [place] [address] Loyda Lennon M.D. [address] [place] [phone] Scheduled Procedures Name Priority Associated Diagnoses Date/Ti me HEPATECTOMY RESECTION LIVER Cholangiocarcinoma (HCC) ULTRASOUND LIVER Cholangiocarcinoma (HCC) RECONSTRUCTION PORTAL VEIN Cholangiocarcinoma (HCC) documented as of this encounter Visit Diagnoses Not on filedocumented in this encounter Additional Health Concerns Infection Onset Date Last Indicated Resolved Time Protective Environment 11/07/2022 11/07/2022 documented as of this encounter Care Teams Installer Technician Relationship Specialty Start Date End Date Mark Colorado M.D. [address] [place] [address] PCP - General Family Medicine 11/09/22 documented as of this encounter
--- OUTSIDE RECORDS SUMMARY | 2023-11-05 22:06 | XMS_ITS | Encounter Summary ---
Author Organization [facility] Address [address] [place] [address] Care Team Providers Care Service Manager Name Role Phone Mark Colorado M.D. Primary Care Provider [phone] Encounter Details Date Type Department Care Team (Late st Contact Info) Description 10/23/2023 Orders Only Department of Oncology in [place], [place] [address] [place] [address] Omero Lopes Social History Tobacco Use Types Packs/Day Years Used Date Smoking Tobacco: Never Passive Smoke Exposure: Never Smokeless Tobacco: Never Alcohol Use Standard Drinks/Week Comments Not Currently 0 (1 standard drink = 0.6 oz pur e alcohol) [facility] Utilities Answer Date Recorded In the past 12 months has [employer], gas, oil, or water [employer] threatened to shut off services in your [...] your living situation today? I [facility] to live 10/22/2023 Sex and Gender Information Value Date Recorded Sex Assigned at Male 09/10/2022 12:02 PM CDT Gender Identity Male 09/10/2022 12:02 PM CDT Sexual Orientation Straight 09/10/2022 12 :02 PM CDT documented as of this encounter Plan of Treatment Upcoming Encounters Date Type Department Care Team (Latest Contact Info) Description 11/07/2023 3:15 PM CDT Clinical Communication Virtual Review in [place], [place] [address] [place] [address] 11/15/2023 6:40 AM CDT Lab Department of Laboratory Medicine and Pathology, [facility] in [address] [address] Loyda Lennon M.D. [address] [place] [phone] 11/15/2023 8:20 AM CDT Office Visit Department of Oncology in [address] [address] Manjit Velasquez APRN, C.N.P., D.N.P. [address] [place] [phone] 11/15/2023 9:30 AM CDT Comprehensive Visit Department of Palliative Care in [address] [address] Patty Gomez APRN, C.N.P., M.S.N. [address] [place] [phone] 11/15/2023 2:15 PM CDT Infusion Department of Oncology in [address] [address] Loyda Lennon M.D. [address] [place] [phone] 11/22/2023 7:30 AM CDT Lab Department of Oncology in [place], [place] [address] [place] [phone] Loyda Lennon M.D. [address] [place] [phone] 11/22/2023 8:45 AM CDT Infusion Department of Oncology in [place], [place] [address] [place] [phone] Loyda Lennon M.D. [address] [place] [phone] 11/28/2023 3:30 PM CDT Clinical Communication Virtual Review in [place], [place] [address] [place] [address] 11/29/2023 9:00 AM CDT Procedure visit Department of Urology in [place], [place] [address] [place] [phone] Mark Colorado M.D. [address] [place] [address] [place] [address] 11/29/2023 11:20 AM CDT Lab Department of Laboratory Medicine and Pathology, [facility], in [place], [place] [address] [place] [phone] Loyda Lennon M.D. [address] [place] [phone] 11/29/2023 11:30 AM CDT Lab Department of Oncology in [place], [place] [address] [place] [phone] Loyda Lennon M.D. [address] [place] [phone] 11/29/2023 1:00 PM CDT Infusion Department of Oncology in [place], [place] [address] [place] [phone] Loyda Lennon M.D. [address] [place] [phone] 12/03/2023 1:45 PM CDT Comprehensive Visit Department of Urology in [place], [place] [address] [place] [phone] Mona Egan P.A.-C. [address] [place] [phone] 12/05/2023 1:20 PM CDT Comprehensive Visit Department of Oncology in [place], [place] [address] [place] [phone] Letty Kate M.D. [address] [place] [phone] 12/10/2023 3:00 PM CDT Clinical Communication Virtual Review in [place], [place] [address] [place] [address] 12/10/2023 3:30 PM CDT Procedure visit Department of Urology in [place], [place] [address] [place] [phone] Mark Colorado M.D. [address] [place] [address] [place] [address] 12/12/2023 3:45 PM CDT Appointment Department of Radiology, [facility], in [place], [place] [address] [place] [phone] Na Hernandez M.D., Ph.D. [address] [place] [phone] 12/13/2023 6:00 AM CDT Lab Department of Laboratory Medicine and Pathology, [facility], in [place], [place] [address] [place] [phone] Loyda Lennon M.D. [address] [place] [phone] 12/13/2023 6:20 AM CDT Lab Department of Infusion Therapy in [place], [place] [address] [place] [phone] Loyda Lennon M.D. [address] [place] [phone] 12/13/2023 11:10 AM CDT Office Visit Department of Oncology in [place], [place] [address] [place] [phone] Na Hernandez M.D., Ph.D. [address] [place] [phone] 12/13/2023 1:00 PM CDT Infusion Department of Oncology in [place], [place] [address] [place] [phone] Loyda Lennon M.D. [address] [place] [phone] 12/20/2023 9:20 AM CDT Lab Department of Infusion Therapy in [place], [place] [address] [place] [phone] Loyda Lennon M.D. [address] [place] [phone] 12/20/2023 10:30 AM CDT Infusion Department of Oncology in [place], [place] [address] [place] [phone] Loyda Lennon M.D. [address] [place] [phone] 12/25/2023 10:30 AM CDT Appointment Division of Gastroenterology in [address] [phone] Na Hernandez M.D., Ph.D. [address] [place] [phone] 12/27/2023 10:15 AM CDT Lab Department of Oncology in [address] [address] Loyda Lennon M.D. [address] [place] [phone] 12/27/2023 10:30 AM CDT Lab Department of Laboratory Medicine and Pathology, [address] [address] Loyda Lennon M.D. [address] [place] [phone] 12/27/2023 11:45 AM CDT Infusion Department of Oncology in [address] [address] Loyda Lennon M.D. [address] [place] [phone] 01/03/2024 1:00 PM CDT Clinical Communication Virtual Review in [place], [place] [address] [place] [address] 01/10/2024 8:00 AM CDT Lab Department of Infusion Therapy in [address] [address] Loyda Lennon M.D. [address] [place] [phone] 01/10/2024 8:20 AM CDT Lab Department of Laboratory Medicine and Pathology, [facility], [place] [address] [place] [address] Loyda Lennon M.D. [address] [place] [phone] 01/10/2024 10:30 AM CDT Office Visit Department of Oncology in [place], [place] [address] [place] [phone] Na Hernandez M.D., Ph.D. [address] [place] [phone] 01/10/2024 11:45 AM CDT Infusion Department of Oncology in [place], [place] [address] [place] [address] Loyda Lennon M.D. [address] [place] [phone] 01/17/2024 8:45 AM CDT Lab Department of Oncology in [place], [place] [address] [place] [address] Loyda Lennon M.D. [address] [place] [phone] 01/17/2024 10:00 AM CDT Infusion Department of Oncology in [place], [place] [address] [place] [address] Loyda Lennon M.D. [address] [place] [phone] 01/24/2024 8:00 AM CDT Lab Department of Laboratory Medicine and Pathology, [facility], in [place], [place] [address] [place] [address] Loyda Lennon M.D. [address] [place] [phone] 01/24/2024 8:15 AM CDT Lab Department of Oncology in [place], [place] [address] [place] [address] Loyda Lennon M.D. [address] [place] [phone] 01/24/2024 9:15 AM CDT Infusion Department of Oncology in [place], [place] [address] [place] [address] Loyda Lennon M.D. [address] [place] [phone] Scheduled Procedures Name Priority Associated Diagnoses Date/Ti me HEPATECTOMY RESECTION LIVER Cholangiocarcinoma (HCC) ULTRASOUND LIVER Cholangiocarcinoma (HCC) RECONSTRUCTION PORTAL VEIN Cholangiocarcinoma (HCC) documented as of this encounter Visit Diagnoses Not on filedocumented in this encounter Additional Health Concerns Infection Onset Date Last Indicated Resolved Time Protective Environment 11/07/2022 11/07/2022 documented as of this encounter Care Teams Service Manager Relationship Specialty Start Date End Date Mark Colorado M.D. [address] [place] [address] PCP - General Family Medicine 11/09/22 documented as of this encounter
--- OUTSIDE RECORDS SUMMARY | 2023-11-05 22:06 | XMS_ITS | Encounter Summary ---
Author Organization [facility] Address [address] [place] [address] Care Team Providers Care Sales And Service Advisor Name Role Phone Mark Colorado M.D. Primary Care Provider [phone] Reason for Visit * Reason Comments Abdominal Pain 68 yo [facility] with concerns of worsening lower abdominal pain, nausea, vomiting and fatigue which has progressively been worsening over the last couple days. Patient is on a clinical trial with marion for cancer treatment, last infusion was last week Saturday and is scheduled for tomorrow. Encounter Details Date Type Department Care Team (Late st Contact Info) Description 10/21/2023 7:17 PM CDT - 10/21/2023 10:30 PM CDT Emergency [facility] [address] [place] [phone] Tresa Patino APRN, SaraNHoldenP., D.Sara.P., M.S.N. [address] [place] [address] Abdominal Pain (Primary Dx) Discharge Disposition: Home or Self Care Social History Tobacco Use Types Packs/Day Years Used Date Smoking Tobacco: Never Passive Smoke Exposure: Never Smokeless Tobacco: Never Alcohol Use Standard Drinks/Week Comments Not Currently 0 (1 standard drink = 0.6 oz pur e alcohol) occ [facility] Utilities Answer Date Recorded In [...] Sign Reading Time Taken Comments Blood Pressure 157/87 10/21/2023 10:30 PM CDT Pulse 83 10/21/2023 10:30 PM CDT Temperature 37.5 ??C (99.5 ??F) 10/21/2023 10:30 PM C DT Respiratory Rate 20 10/21/2023 10:30 PM CDT Oxygen Saturation 96% 10/21/2023 10:30 PM CDT Inhaled Oxygen Concentration - - Weight 90.9 kg (200 lb 6.4 oz) 10/21/2023 7:27 P M CDT Height - - Body Mass Index 27.2 10/15/2023 9:16 AM CDT documented in this encounter Discharge Instructions * Discharge Instructions* Tresa Patino APRN, C.N.P., D.N.P., M.S.N. - 10/21/2023 10:20 PM CDT Continue with your Dilaudid as ordered. Modify activities as tolerated. Take Zofran as needed for nausea or vomiting. Please follow with your primary care provider in clinic as ordered. Return to ED if you have worsening symptoms or any new concerns. documented in this encounter Medications at Time [...] capsule Take 200 mg by mouth daily. glucosamine gah-jxmxryukxx-nfl 500-200-150 mg tablet Take 1 tablet by [...] 02/14/2023 prochlorperazine (COMPAZINE) 10 mg tabletIndications:Cho langiocarcinoma (HCC),Fdc Current Drug Therapy, Chemotherapy Take 1 tablet (10 mg total) by mouth every 6 (six) hours as needed for nausea or vomiting (unrelieved by ondansetron). 30 tablet 3 11/02/2022 11/02/2023 acetaminophen (TylenoL) 500 mg tablet Take 500 mg by mouth every 6 (six) hours as needed for pain. 10/22/2023 fluticasone propionate (FLONASE) 50 mcg/actuation nasal spray Administer 2 sprays into each nostril daily. 16 g 3 02/14/2023 10/24/2023 lisinopriL 20 mg tablet Take 1 tablet (20 mg total) by mouth daily. 30 tablet 3 10/16/2023 10/24/2023 documented as of this encounter ED Notes * Tresa Patino APRN, C.N.P., D.N.P., M.S.N. - 10/21/2023 8:39 PM CDT SUBJECTIVE CHIEF COMPLAINT/REASON FOR VISIT Abdominal Pain (68 yo presents to the ED via private vehicle with concerns of worsening lower abdominal pain, nausea, vomiting and fatigue which has progressively been worsening over the last couple days. Patient is on a clinical trial with marion for cancer treatment, last infusion was last week Saturday and is scheduled for tomorrow. ) HISTORY OF PRESENT ILLNESS Jorge Luis Sepulveda is a 68 y.o. male with multiple comorbidities including peritoneal carcinomatosis, metastatic intrahepatic cholangiocarcinoma enrolled on the CTX-009 clinical trial and was randomized to the paclitaxel control arm with last treatment about a week ago, drug-induced thrombocytopenia and neutropenia, generalized weakness, anemia, and other chronic medical conditions. He presented to ED accompanied by his for evaluation worsening lower abdominal pain, nausea, and vomiting. Patient verbalized he has been dealing with chronic progressive abdominal pain for over a month. However the last 2 days, his pain has increased. He had 1 time non bloody vomitus and continues to be nauseous. Has been eating and drinking less. No fevers or chills. No dysuria, urgency, or frequency. No diarrhea or constipation. No chest pain or shortness on breath. Took some Tylenol prior to coming in with no significant improvement. He is due to follow-up with his care team tomorrow. Otherwise no other issues or concerns. REVIEW OF SYSTEMS All negative except as indicated in HPI OBJECTIVE Initial Vitals Temperature 10/21/231926 37.4 ??C Pulse Rate 10/21/231926 73 Heart Rate -- Resp Rate 10/21/231926 18 Blood Pressure 10/21/231926 158/83 SpO2 10/21/231926 95 % Pain Score 10/21/231925 7 PHYSICAL EXAMINATION Constitutional: Nursing note and vitals reviewed. No distress. HENT: Head: Atraumatic. Mouth/Throat: Mucous membranes are moist. Eyes: Conjunctivae are normal. Neck: Neck supple. Cardiovascular: Regular rhythm and normal heart sounds. Pulses are palpable. Pulmonary/Chest: Effort normal and breath sounds normal. There is normal air entry. No tachypnea. No respiratory distress. He has no wheezes. He has no rales. Abdominal: exhibits no distension. There is abdominal tenderness (across the lower abdomen and right upper quadrant). There is no rebound and no guarding. No flank or CVA tenderness Musculoskeletal: General: No tenderness or edema. Cervical back: Neck supple. Neurological: Alert and oriented to person, place, and time. Skin: Skin is warm and intact. No cyanosis. No jaundice. Psychiatric: He has a normal mood and affect. ASSESSMENT/PLAN This is a pleasant gentleman with metastatic cholangiocarcinoma currently on chemotherapy who presented today for evaluation of acute on chronic abdominal pain with associated nausea and vomiting. Upon presenting to the ED, patient was alert and in no acute distress. Speech is clear. Behavior is appropriate. Vital signs are positive for elevated blood pressure but otherwise afebrile. Physical exams is positive for diffuse lower abdominal tenderness and right upper quadrant tenderness. No rebound tenderness. Differential diagnosis include but not limited to cholecystitis versus choledocholithiasis, pancreatitis, bowel obstruction, peritonitis, UTI/pyelonephritis, kidney stones, metastasis disease, among others. Will obtain CBC, chemistry, LFTs, lipase and urinalysis. He has not been eatingand drinking much. Will give him IV fluid. Fentanyl for pain and Zofran for nausea. Will obtain CT of the abdomen pelvis to evaluate for acute intra-abdominal pathology. Please see ED course for restof the documentation. Dispo pending ED evaluation. Assessment and Plan I reviewed the following external records: prior outpatient labs, primary care records, office records and prior outpatient radiology tests. ED Course as of 10/21/232224Oct 21, 20232015 Leukocytes(!): 2.8 2015 MCV(!): 101.3 2015 Erythrocytes(!): 3.00 2015 Hematocrit(!): 30.4 Stable anemia. Slightly low leukocyte. 2025 Lactate: 0.7 Within normal limits 2025 Aspartate Aminotransferase (AST), P(!): 76 2025 Alanine Aminotransferase (ALT), P(!): 67 2025 Alkaline Phosphatase, P(!): 241 2025 Albumin, P(!): 3.3 2025 Protein, Total, P(!): 6.0 Elevated LFTs 2025 Lipase, P(!): 61 Mildly elevated 2025 Potassium, P: 4.8 2025 Creatinine: 1.24 Within normal limits 2145 CT Abdomen Pelvis with IV Contrast IMPRESSION: No bowel obstruction. No acute findings [...] Trace bilateral pleural effusions have increased slightly. 2218 Source: Urine, Urine, Midstream 2218 Color, U: Yellow 2218 Glucose: Negative 2218 Ketones, QL(U): Negative Urinalysis is normal 2223 Patient reports improved pain. Overall her lab fairly unremarkable other than elevated LFTs. Does have history of elevated LFTs likely related to cholangiocarcinoma. Patient advised to follow with her PCP and that. He also has a appointment coming up tomorrow and he will follow-up. CT of the abdomen pelvis negative for acute intra-abdominal pathology. Some chronic findings noted. He has adequate supply of Dilaudid and Zofran at home. Patient comfortable going home to do supportive treatment. Return precautions provided to him and his about coming to ED if worsening symptoms or any new concerns. Both verbalized understanding he left stable ambulatory. Final Diagnoses: as of 10/21/232224 Abdominal Pain Tresa Patino APRN, C.NJose, Flaco.N.P., M.S.N. 10/21/232224 documented in this encounter Plan of Treatment Upcoming Encounters Date Type Department Care Team (Latest Contact Info) Description 11/07/2023 3:15 PM CDT Clinical Communication Virtual Review in [address] [phone] 11/15/2023 6:40 AM CDT Lab Department of Laboratory Medicine and Pathology, [facility], in [address] [phone] Loyda Lennon M.D. [address] [place] [phone] 11/15/2023 8:20 AM CDT Office Visit Department of Oncology in [address] [phone] Manjit Velasquez APRN, Reva.N.P., D.N.P. [address] [place] [phone] 11/15/2023 9:30 AM CDT Comprehensive Visit Department of Palliative Care in [address] [phone] Patty Gomez APRN, C.N.P., M.S.N. [address] [place] [phone] 11/15/2023 2:15 PM CDT Infusion Department of Oncology in [place], [place] [address] [place] [phone] Loyda Lennon M.D. [address] [place] [phone] 11/22/2023 7:30 AM CDT Lab Department of Oncology in [place], [place] [address] [place] [phone] Loyda Lennon M.D. [address] [place] [phone] 11/22/2023 8:45 AM CDT Infusion Department of Oncology in [place], [place] [address] [place] [phone] Loyda Lennon M.D. [address] [place] [phone] 11/28/2023 3:30 PM CDT Clinical Communication Virtual Review in [place], [place] [address] [place] [address] 11/29/2023 9:00 AM CDT Procedure visit Department of Urology in [place], [place] [address] [place] [phone] Mark Coolrado M.D. [facility] [place] [phone] 11/29/2023 11:20 AM CDT Lab Department of Laboratory Medicine and Pathology, [facility], in [place], [place] [address] [place] [phone] Loyda Lennon M.D. [address] [place] [phone] 11/29/2023 11:30 AM CDT Lab Department of Oncology in [place], [place] [address] [place] [phone] Loyda Lennon M.D. [address] [place] [phone] 11/29/2023 1:00 PM CDT Infusion Department of Oncology in [place], [place] [address] [place] [phone] Loyda Lennon M.D. [address] [place] [phone] 12/03/2023 1:45 PM CDT Comprehensive Visit Department of Urology in [place], [place] [address] [place] [phone] Mona Egan P.A.-C. [address] [place] [phone] 12/05/2023 1:20 PM CDT Comprehensive Visit Department of Oncology in [place], [place] [address] [place] [phone] Letty Kate M.D. [address] [place] [phone] 12/10/2023 3:00 PM CDT Clinical Communication Virtual Review in [place], [place] [address] [place] [phone] 12/10/2023 3:30 PM CDT Procedure visit Department of Urology in [place], [place] [address] [place] [phone] Mark Colorado M.D. [facility] [place] [phone] 12/12/2023 3:45 PM CDT Appointment Department of Radiology, [facility], in [place], [place] [address] [place] [phone] Na Hernandez M.D., Ph.D. [address] [place] [phone] 12/13/2023 6:00 AM CDT Lab Department of Laboratory Medicine and Pathology, [facility], in [place], [place] [address] [place] [phone] Loyda Lennon M.D. [address] [place] [phone] 12/13/2023 6:20 AM CDT Lab Department of Infusion Therapy in [place], [place] [address] [place] [phone] Loyda Lennon M.D. [address] [place] [phone] 12/13/2023 11:10 AM CDT Office Visit Department of Oncology in [place], [place] [address] [place] [phone] Na Hernandez M.D., Ph.D. [address] [place] [phone] 12/13/2023 1:00 PM CDT Infusion Department of Oncology in [place], [place] [address] [place] [phone] Loyda Lennon M.D. [address] [place] [phone] 12/20/2023 9:20 AM CDT Lab Department of Infusion Therapy in [place], [place] [address] [place] [phone] Loyda Lennon M.D. [address] [place] [phone] 12/20/2023 10:30 AM CDT Infusion Department of Oncology in [place], [place] [address] [place] [phone] Loyda Lennon M.D. [address] [place] [phone] 12/25/2023 10:30 AM CDT Appointment Division of Gastroenterology in [place], [place] [address] [place] [phone] Na Hernandez M.D., Ph.D. [address] [place] [phone] 12/27/2023 10:15 AM CDT Lab Department of Oncology in [place], [place] [address] [place] [phone] Loyda Lennon M.D. [address] [place] [phone] 12/27/2023 10:30 AM CDT Lab Department of Laboratory Medicine and Pathology, [facility], in [address] [phone] Loyda Lennon M.D. [address] [place] [phone] 12/27/2023 11:45 AM CDT Infusion Department of Oncology in [address] [phone] Loyda Lennon M.D. [address] [place] [phone] 01/03/2024 1:00 PM CDT Clinical Communication Virtual Review in [place], [place] 200 [place] [address] 01/10/2024 8:00 AM CDT Lab Department of Infusion Therapy in [address] [phone] Loyda Lennon M.D. [address] [place] [phone] 01/10/2024 8:20 AM CDT Lab Department of Laboratory Medicine and Pathology, [facility], in [place], [place] [address] [place] [phone] Loyda Lennon M.D. [address] [place] [phone] 01/10/2024 10:30 AM CDT Office Visit Department of Oncology in [place], [place] [address] [place] [phone] Na Hernandez M.D., Ph.D. [address] [place] [phone] 01/10/2024 11:45 AM CDT Infusion Department of Oncology in [place], [place] [address] [place] [phone] Loyda Lennon M.D. [address] [place] [phone] 01/17/2024 8:45 AM CDT Lab Department of Oncology in [place], [place] [address] [place] [phone] Loyda Lennon M.D. [address] [place] [phone] 01/17/2024 10:00 AM CDT Infusion Department of Oncology in [place], [place] [address] [place] [phone] Loyda Lennon M.D. [address] [place] [phone] 01/24/2024 8:00 AM CDT Lab Department of Laboratory Medicine and Pathology, [facility], in [place], [place] [address] [place] [address] Loyda Lennon M.D. [address] [place] [phone] 01/24/2024 8:15 AM CDT Lab Department of Oncology in [place], [place] [address] [place] [phone] Loyda Lennon M.D. [address] [place] [phone] 01/24/2024 9:15 AM CDT Infusion Department of Oncology in [place], [place] [address] [place] [address] Loyda Lennon M.D. [address] [place] [phone] Scheduled Procedures Name Priority Associated Diagnoses Date/Ti me HEPATECTOMY RESECTION LIVER Cholangiocarcinoma (HCC) ULTRASOUND LIVER Cholangiocarcinoma (HCC) RECONSTRUCTION PORTAL VEIN Cholangiocarcinoma (HCC) documented as of this encounter Procedures Procedure Name Priority Date/Time Associated Diagnosis Comments URINALYSIS WITH MICROSCOPIC IF INDICATED, U STAT 10/21/2023 9:[address] ABDOMEN PELVIS WITH IV CONTRAST RAD - Semiurgent (Fast; most ED patients; some inpatients) 10/21/2023 8:58 PM CDT LACTATE, B/P STAT 10/21/2023 7:59 PM CDT HEPATIC FUNCTION PANEL, S STAT 10/21/2023 7:58 PM CDT CBC WITH DIFFERENTIAL, B STAT 10/21/2023 7:58 PM CDT LIPASE, S/P STAT 10/21/2023 7:58 PM CDT BASIC METABOLIC PANEL, S/P STAT 10/21/2023 7:58 PM CDT documented in this encounter Results * Urinalysis with Microscopic if Indicated (10/21/2023 [...] 8.0 10/21/2023 10:00 PM CDT CNFL Specific [place] <=1.005 1.001 - 1.035 10/21/2023 10:00 PM CDT CNFL Urobilinogen 0.2 0.2 - 1.0 mg/dL 10/21/2023 10:00 PM CDT CNFL Urine (Urine, Midstream) 10/21/2023 9:50 PM CDT 10/21/2023 9:57 PM CDT Tresa Patino APRN C.N.P., D.N.P., M.S.N . LAB URINE ORDERABLES [facility] [address] [place] [phone], [facility] CN[facility] in [address] [address] * CT Abdomen Pelvis with IV Contrast (10/21/2023 8:58 PM CDT) Anatomical Region Laterality Modality Abdomen, Pelvis, Abdominal [...] D.N.P., M.S.N . LAB BLOOD NON ADD-ON [facility]- [address] [address], [facility] [address] [address] * (ABNORMAL) Lipase (10/21/2023 7:58 PM CDT) Lipase, P 61(H) 13 - 60 U/L 10/21/2023 8: 20 PM CDT CNFL Blood (Blood, Venous) 10/21/2023 7:58 PM CDT 10/21/2023 8:01 PM CDT Sara Mancia APRNNHoldenP., D.N.P., M.S.N . LAB BLOOD ADD-ON [facility]- [address] [address], [facility] in [address] [address] * (ABNORMAL) Hepatic Function Panel (10/21/2023 7:58 PM CDT) Bilirubin, Total, P 0.3 0.0 - 1.2 mg/dL 10/21/2023 8:20 PM CDT CNFL Bilirubin, Direct, P <0.2 0.0 - 0.3 mg/dL 10/21/2023 8:20 PM CDT CNFL Aspartate Aminotransferase (AST), P 76(H) 8 - 48 U/L 10/21/2023 8:20 PM CDT CNFL Alanine Aminotransferase (ALT), P 67(H) 7 - 55 U/L 10/21/2023 8:20 PM CDT CNFL Alkaline Phosphatase, P 241(H) 40 - 129 U/L 10/21/2023 8:20 PM CDT CNFL Albumin, P 3.3(L) 3.5 - 5.0 g/dL 10/21/2023 8:20 PM CDT CNFL Protein, Total, P 6.0(L) 6.3 - 7.9 g/dL 10/21/2023 8:20 PM CDT CNFL Blood (Blood, Venous) 10/21/2023 7:58 PM CDT 10/21/2023 8:01 PM CDT Tresa Patino APRN, C.N.P., DaisyNHoldenP., M.S.N . LAB BLOOD ADD-ON [facility] [address] [place] [address], [facility] in [address] [address] * (ABNORMAL) Basic Metabolic Panel (10/21/2023 7:58 PM CDT) Potassium, P 4.8 3.6 - 5.2 mmol/L 10/21/2023 8:20 PM CDT CNFL Sodium, P 135 135 - 145 mmol/L 10/21/2023 8:20 PM CDT CNFL Chloride, P 105 98 - 107 mmol/L 10/21/2023 8:20 PM CDT CNFL Bicarbonate, P 23 22 - 29 mmol/L 10/21/2023 8:20 PM CDT CNFL Anion Gap, P 7 7 - 15 10/21/2023 8:20 PM CDT CNFL BUN (Blood Urea Nitrogen), P 24 8 - 24 mg/dL 10/21/2023 8:20 PM CDT CNFL Creatinine 1.24 0.74 - 1.35 mg/dL 10/21/2023 8:20 PM CDT CNFL Estimated GFR (eGFR) 63 >=60 mL/min/BSA 10/21/2023 8:20 PM CDT CNFL Comment: Estimated GFR calculated using the 2020 CKD_EPI creatinine equation. Calcium, Total, P 8.3(L) 8.8 - 10.2 mg/dL 10/21/2023 8:20 PM CDT CNFL Glucose, P 99 70 - 140 mg/dL 10/21/2023 8:20 PM CDT CNFL Blood (Blood, Venous) 10/21/2023 7:58 PM CDT 10/21/2023 8:01 PM CDT Jackimiya Sukumar PAGE C.N.P., Pino.P., M.S.N . LAB BLOOD ADD-ON [facility] [address] [place] [phone], [facility] in [address] [address] * (ABNORMAL) CBC with Differential, Blood (10/21/2023 7:58 PM CDT) [facility] Hemoglobin 9.7(L) 13.2 - 16.6 g/dL 10/21/2023 8:09 PM CDT CNFL Hematocrit 30.4(L) 38.3 - 48.6 % 10/21/2023 8:09 PM CDT CNFL Erythrocytes 3.00(L) 4.35 - 5.65 x10(12)/L 10/21/2023 8:09 PM CDT CNFL MCV 101.3(H) 78.2 - 97.9 fL 10/21/2023 8:09 PM CDT CNFL RBC Distrib Width 15.7(H) 11.8 - 14.5 % 10/21/2023 8:09 PM CDT CNFL Platelet Count 141 135 - 317 x10(9)/L 10/21/2023 8:09 PM CDT CNFL Leukocytes 2.8(L) 3.4 - 9.6 x10(9)/L 10/21/2023 8:09 PM CDT CNFL Neutrophils 1.91 1.56 - 6.45 x10(9)/L 10/21/2023 8:09 PM CDT CNFL Lymphocytes 0.49(L) 0.95 - 3.07 x10(9)/L 10/21/2023 8:09 PM CDT CNFL Monocytes 0.35 0.26 - 0.81 x10(9)/L 10/21/2023 8:09 PM CDT CNFL Eosinophils 0.07 0.03 - 0.48 x10(9)/L 10/21/2023 8:09 PM CDT CNFL Basophils <0.04 0.01 - 0.08 x10(9)/L 10/21/2023 8:09 PM CDT CNFL Blood (Blood, Venous) 10/21/2023 7:58 PM CDT 10/21/2023 8:01 PM CDT Tresa Ramonderek PAGE C.N.P., D.N.P., M.S.N . LAB BLOOD ADD-ON [facility] [address] [place] [address], [facility] in [address] [address] documented in this encounter Visit Diagnoses Diagnosis Abdominal Pain- Primary documented in this encounter Administered Medications Inactive Administered Medications - up to 3 most recent administrations Medication Order MAR Action Action Date Dose Rate Site fentaNYL injection 75 mcg (Sublimaze) 75 mcg, intravenous, Every 15 min PRN, severe pain or score 7-10 of 10, Starting on Sat10/21/23 at 1947, For 2 doses Given 10/21/2023 8:00 PM CDT 75 mcg iohexoL 300 mg iodine/mL solution 135 mL (Omnipaque) 135 mL, intravenous, Once in imaging, contrast, Starting on Sat10/21/23 at 2038, For 1 dose Given 10/21/2023 8:59 PM CDT 135 mL NaCl 0.9 % bolus 1,000 mL 1,000 mL, intravenous, at 1,000 mL/hr, Administer over 1 Hours, Once, On Sat10/21/23 at 194, For 1 dose New Bag 10/21/2023 8:00 PM CDT 1,000 mL 100 0 mL/hr ondansetron (PF) injection 4 mg (Zofran) 4 mg, intravenous, Once, On Sat10/21/23 at 1948, For 1 dose Given 10/21/2023 8:00 PM CDT 4 mg sodium chloride 0.9 % flush 84 mL 84 mL, intravenous, Once in imaging, line care, Starting on Sat10/21/23 at 2038, For 1 dose Given 10/21/2023 8:59 PM CDT 84 mL sodium chloride 0.9 % injection 10 mL 10 mL, intravenous, As needed, line care, Starting on Sat10/21/23 at 1945, Peripheral Intravenous Catheter and Rapid Infusion Catheter, prior to blood sampling, post blood transfusion or post blood sampling sodium chloride 0.9 % injection 10 mL 10 mL, intravenous, As needed, line care, Starting on Sat10/21/23 at 2039 Given 10/21/2023 9:00 PM CDT 10 mL sodium chloride 0.9 % injection 3 mL 3 mL, intravenous, As needed, line care, Starting on Sat10/21/23 at 1945, Prior to and following infusion and between multiple consecutive infusions: sodium chloride 0.9 % injection sodium chloride 0.9 % injection 3 mL 3 mL, intravenous, Every 12 hours scheduled, First dose on Sat10/21/23 at 2100, Peripheral Intravenous Catheter and Rapid Infusion Catheter, when no infusion to maintain patency documented in this encounter Active and Recently Administered Medications Times are shown in CDT. Scheduled Medication Order 10/19/2023 10/20/2023 10/21/2023 NaCl 0.9 % bolus 1,000 mL (COMPLETED) 1,000 mL, intravenous, at 1,000 mL/hr, Administer over 1 Hours, Once, On Sat10/21/23 at 1948, For 1 dose 1999 (New Bag - Prov ider: Shefali Jo R.N.)2129 (Stopped - Provider: Shefali Jo R.N.) ondansetron (PF) injection 4 mg (Zofran) (COMPLETED) 4 mg, intravenous, Once, On Sat10/21/23 at 1948, For 1 dose 1999 (Given - Provid er: Shefali Jo R.N.) sodium chloride 0.9 % injection 3 mL 3 mL, intravenous, Every 12 hours scheduled, First dose on Sat10/21/23 at 2100, Peripheral Intravenous Catheter and Rapid Infusion Catheter, when no infusion to maintain patency 2099 (Due) PRN Medication Order 10/19/2023 10/20/2023 10/21/2023 fentaNYL injection 75 mcg (Sublimaze) 75 mcg, intravenous, Every 15 min PRN, severe pain or score 7-10 of 10, Starting on Sat10/21/23 at 1948, For 2 doses 1999 (Given - Provid er: Marlayna J Pembina, R.N.) iohexoL 300 mg iodine/mL solution 135 mL (Omnipaque) (COMPLETED) 135 mL, intravenous, Once in imaging, contrast, Starting on Sat10/21/23 at 2038, For 1 dose 2058 (Given - Provid er: Ammon Bautista, Dioni.THolden(R)(CT), R.T.(R)) sodium chloride 0.9 % flush 84 mL (COMPLETED) 84 mL, intravenous, Once in imaging, line care, Starting on Sat10/21/23 at 2038, For 1 dose 2058 (Given - Provid er: Ammon Bautista, Dioni.THolden(R)(CT), R.T.(R)) sodium chloride 0.9 % injection 10 mL 10 mL, intravenous, As needed, line care, Starting on Sat10/21/23 at 1945, Peripheral Intravenous Catheter and Rapid Infusion Catheter, prior to blood sampling, post blood transfusion or post blood sampling sodium chloride 0.9 % injection 10 mL 10 mL, intravenous, As needed, line care, Starting on Sat10/21/23 at 2038 2100 (Given - Provid er: Ammon Bautista, GreciaTHolden(R)(CT), R.T.(R)) sodium chloride 0.9 % injection 3 mL 3 mL, intravenous, As needed, line care, Starting on Sat10/21/23 at 1945, Prior to and following infusion and between multiple consecutive infusions: sodium chloride 0.9 % injection documented in this encounter Additional Health Concerns Infection Onset Date Last Indicated Resolved Time Protective Environment 11/07/2022 11/07/2022 documented as of this encounter Care Teams Sales And Service Advisor Relationship Specialty Start Date End Date Mark Colorado M.D. [address], [place] [phone] PCP - General Family Medicine 11/09/22 documented as of this encounter
--- OUTSIDE RECORDS SUMMARY | 2023-11-05 22:06 | XMS_ITS | Encounter Summary ---
Author Organization [facility] Address [address] [place] [address] Care Team Providers Care Buffer Copper Name Role Phone Mark Colorado M.D. Primary Care Provider [phone] Encounter Details Date Type Department Care Team (Late st Contact Info) Description 10/18/2023 Clinical Communication Department of Oncology in [place], [place] [address] [place] [address] Sukhi Duong, M.S.N., R.N. Social History Tobacco Use Types Packs/Day Years Used Date Smoking Tobacco: Never Passive Smoke Exposure: Never Smokeless Tobacco: Never Alcohol Use Standard Drinks/Week Comments Not Currently 0 (1 standard drink = 0.6 oz pur e alcohol) [facility] Utilities Answer Date Recorded In the past 12 months has th e electric, gas, oil, or water [employer] threatened to shut off services in your home? No 10/10/2023 Humiliation, Afraid, Rape, and Kick questionnair e Answer Date Recorded Within the last year, have y ou been afraid of your partner or ex-partner? No 09/10/2022 Within the last year, have y ou been humiliated or emotionally abused in other ways by your partner or ex-partner? No Within the last year, have y ou been kicked, hit, slapped, or otherwise physically hurt by your partner or ex-partner? No 09/10/2022 Within the last year, have y ou been raped or forced to have any kind of sexual activity by your partner or ex-partner? No 09/10/2022 Overall Financial Resource Strain (CARDIA) Answe r [...] the money to buy more. Never true 10/10/19 24 Within the past 12 months, t he food you bought just didn't last and you didn't have money to get more. Never true 10/10/2023 PRAPARE - Transportation Answer Date Re corded In the past 12 months, has l ack of transportation kept you from medical appointments or from getting medications? No 09/29 In the past 12 months, has l ack of transportation kept you from meetings, work, or from getting things needed for daily living? No 10/10/2023 Nutrition Answer Date Recorded On average, how [...] your living situation today? I have a [facility] place to live 10/10/2023 Sex and Gender Information Value Date Recorded Sex Assigned at Male 09/10/2022 12:02 PM CDT Gender Identity Male 09/10/2022 12:02 PM CDT Sexual Orientation Straight 09/10/2022 12 :02 PM CDT documented as of this encounter Miscellaneous Notes * Telephone Encounter - Sukhi Duong M.S.N., R.N. - 10/18/2023 10:47 AM CDT SUBJECTIVE CHIEF COMPLAINT / REASON FOR CALL No chief complaint on file. ASSESSMENT I spoke with Mr. Sepulveda on the phone, and we discussed how he has been doing since his last visit with oncology on 10/14. He is alternating between Dilaudid and Tylenol for pain management. Because hewas a little behind on the schedule for Tylenol yesterday, his pain was high. However today he is staying on top of his schedule and pain is tolerable. Nausea has subsided and he has been able to eatand drink. He states he is concerned about his blood pressure as the increased dose of Lisinopril has not had much effect. Dose was switched to 20mg on 10/14. Blood pressures readings at home range from 140's-170's. He denies chest pain, headaches, vision changes. He reports a dizziness that has been going on about a month, but he declines an increase in dizziness. He also adds that the dizzinessoccurs mostly at night and has to use a walker to get to the bathroom for safety. He asks if he should try a different blood pressure medication. He believes his current medication are not helping tolower his blood pressure and worried about stroke. PLAN Information/Education: patient/caller able to teach back. Caller agreeable to plan of care: yes. The following references were used: provider Dr. Hernandez . documented in this encounter Plan of Treatment Upcoming Encounters Date Type Department Care Team (Latest Contact Info) Description 11/07/2023 3:15 PM CDT Clinical Communication Virtual Review in [place], [place] [address] [place] [address] 11/15/2023 6:40 AM CDT Lab Department of Laboratory Medicine and Pathology, [facility], in [place], [place] [address] [place] [phone] Loyda Lennon M.D. [address] [place] [phone] 11/15/2023 8:20 AM CDT Office Visit Department of Oncology in [address] [address] Manjit Velasquez APRN, C.N.P., D.N.P. [address] [place] [phone] 11/15/2023 9:30 AM CDT Comprehensive Visit Department of Palliative Care in [address] [address] Patty Gomez APRN, C.N.P., M.S.N. [address] [place] [phone] 11/15/2023 2:15 PM CDT Infusion Department of Oncology in [address] [address] Loyda Lennon M.D. [address] [place] [phone] 11/22/2023 7:30 AM CDT Lab Department of Oncology in [address] [address] Loyda Lennon M.D. [address] [place] [phone] 11/22/2023 8:45 AM CDT Infusion Department of Oncology in [place], [place] [address] [place] [phone] Loyda Lennon M.D. [address] [place] [phone] 11/28/2023 3:30 PM CDT Clinical Communication Virtual Review in [place], [place] [address] [place] [address] 11/29/2023 9:00 AM CDT Procedure visit Department of Urology in [place], [place] [address] [place] [phone] Mark Colorado M.D. [address] [place] [address] [place] [address] 11/29/2023 11:20 AM CDT Lab Department of Laboratory Medicine and Pathology, [facility] in [place], [place] [address] [place] [phone] Loyda Lennon M.D. [address] [place] [phone] 11/29/2023 11:30 AM CDT Lab Department of Oncology in [place], [place] [address] [place] [phone] Loyda Lennon M.D. [address] [place] [phone] 11/29/2023 1:00 PM CDT Infusion Department of Oncology in [place], [place] [address] [place] [phone] Loyda Lennon M.D. [address] [place] [phone] 12/03/2023 1:45 PM CDT Comprehensive Visit Department of Urology in [place], [place] [address] [place] [phone] Mona Egan P.A.-C. [address] [place] [phone] 12/05/2023 1:20 PM CDT Comprehensive Visit Department of Oncology in [place], [place] [address] [place] [phone] Letty Kate M.D. [address] [place] [phone] 12/10/2023 3:00 PM CDT Clinical Communication Virtual Review in [place], [place] [address] [place] [address] 12/10/2023 3:30 PM CDT Procedure visit Department of Urology in [place], [place] [address] [place] [phone] Mark Colorado M.D. [address] [place] [address] [place] [address] 12/12/2023 3:45 PM CDT Appointment Department of Radiology, [facility], in [place], [place] [address] [place] [phone] Na Hernandez M.D., Ph.D. [address] [place] [phone] 12/13/2023 6:00 AM CDT Lab Department of Laboratory Medicine and Pathology, [facility], in [place], [place] [address] [place] [phone] Loyda Lennon M.D. [address] [place] [phone] 12/13/2023 6:20 AM CDT Lab Department of Infusion Therapy in [place], [place] [address] [place] [phone] Loyda Lennon M.D. [address] [place] [phone] 12/13/2023 11:10 AM CDT Office Visit Department of Oncology in [place], [place] [address] [place] [phone] Na Hernandez M.D., Ph.D. [address] [place] [phone] 12/13/2023 1:00 PM CDT Infusion Department of Oncology in [place], [place] [address] [place] [phone] Loyda Lennon M.D. [address] [place] [phone] 12/20/2023 9:20 AM CDT Lab Department of Infusion Therapy in [place], [place] [address] [place] [phone] Loyda Lennon M.D. [address] [place] [phone] 12/20/2023 10:30 AM CDT Infusion Department of Oncology in [place], [place] [address] [place] [phone] Loyda Lennon M.D. [address] [place] [phone] 12/25/2023 10:30 AM CDT Appointment Division of Gastroenterology in [address] [phone] Na Hernandez M.D., Ph.D. [address] [place] [phone] 12/27/2023 10:15 AM CDT Lab Department of Oncology in [place], [place] [address] [place] [phone] Loyda Lennon M.D. [address] [place] [phone] 12/27/2023 10:30 AM CDT Lab Department of Laboratory Medicine and Pathology, [facility] in [place], [place] [address] [place] [phone] Loyda Lennon M.D. [address] [place] [phone] 12/27/2023 11:45 AM CDT Infusion Department of Oncology in [address] [address] Loyda Lennon M.D. [address] [place] [phone] 01/03/2024 1:00 PM CDT Clinical Communication Virtual Review in [place], [place] [address] [place] [address] 01/10/2024 8:00 AM CDT Lab Department of Infusion Therapy in [address] [phone] Loyda Lennon M.D. [address] [place] [phone] 01/10/2024 8:20 AM CDT Lab Department of Laboratory Medicine and Pathology, [facility], in [place], [place] [address] [place] [phone] Loyda Lennon M.D. [address] [place] [phone] 01/10/2024 10:30 AM CDT Office Visit Department of Oncology in [place], [place] [address] [place] [phone] Na Hernandez M.D., Ph.D. [address] [place] [phone] 01/10/2024 11:45 AM CDT Infusion Department of Oncology in [place], [place] [address] [place] [phone] Loyda Lennon M.D. [address] [place] [phone] 01/17/2024 8:45 AM CDT Lab Department of Oncology in [place], [place] [address] [place] [phone] Loyda Lennon M.D. [address] [place] [phone] 01/17/2024 10:00 AM CDT Infusion Department of Oncology in [place], [place] [address] [place] [phone] Loyda Lennon M.D. [address] [place] [phone] 01/24/2024 8:00 AM CDT Lab Department of Laboratory Medicine and Pathology, [facility], in [place], [place] [address] [place] [phone] Loyda Lennon M.D. [address] [place] [address] 01/24/2024 8:15 AM CDT Lab Department of Oncology in [place], [place] [address] [place] [phone] Loyda Lennon M.D. [address] [place] [phone] 01/24/2024 9:15 AM CDT Infusion Department of Oncology in [place], [place] [address] [place] [address] Loyda Lennon M.D. [address] [place] [address] Scheduled Procedures Name Priority Associated Diagnoses Date/Ti me HEPATECTOMY RESECTION LIVER Cholangiocarcinoma (HCC) ULTRASOUND LIVER Cholangiocarcinoma (HCC) RECONSTRUCTION PORTAL VEIN Cholangiocarcinoma (HCC) documented as of this encounter Visit Diagnoses Not on filedocumented in this encounter Additional Health Concerns Infection Onset Date Last Indicated Resolved Time Protective Environment 11/07/2022 11/07/2022 documented as of this encounter Care Teams Buffer Copper Relationship Specialty Start Date End Date Mark Colorado M.D. [address] [place] [phone] PCP - General Family Medicine 11/09/22 documented as of this encounter
--- OUTSIDE RECORDS SUMMARY | 2023-11-05 22:06 | XMS_ITS | Encounter Summary ---
Author Organization [facility] Address [address] [place] [address] Care Team Providers Care Car Shifter Name Role Phone Mark Colorado M.D. Primary Care Provider [phone] Encounter Details Date Type Department Care Team (Latest Contact Info) Description 10/22/2023 12:50 PM CDT Ancillary Procedure Department of Gastroenterology Social History Tobacco Use Types Packs/Day Years Used Date Smoking Tobacco: Never Passive Smoke Exposure: Never Smokeless Tobacco: Never Alcohol Use Standard Drinks/Week Comments Not Currently 0 (1 standard drink = 0.6 oz pur e alcohol) occ [facility] Utilities Answer Date Recorded In the [...] your living situation today? I have a [facility] place to live 10/22/2023 Sex and Gender Information Value Date Recorded Sex Assigned at Male 09/10/2022 12:02 PM CDT Gender Identity Male 09/10/2022 12:02 PM CDT Sexual Orientation Straight 09/10/2022 12 :02 PM CDT documented as of this encounter Plan of Treatment Upcoming Encounters Date Type Department Care Team (Latest Contact Info) Description 11/07/2023 3:15 PM CDT Clinical Communication Virtual Review in [address] [address] 11/15/2023 6:40 AM CDT Lab Department of Laboratory Medicine and Pathology, [facility], in [address] [phone] Loyda Lennon M.D. [address] [place] [phone] 11/15/2023 8:20 AM CDT Office Visit Department of Oncology in [address] [address] Manjit Velasquez APRN, C.N.P., D.N.P. [address] [place] [phone] 11/15/2023 9:30 AM CDT Comprehensive Visit Department of Palliative Care in [address] [address] Patty Gomez APRN, C.N.P., M.S.N. [address] [place] [phone] 11/15/2023 2:15 PM CDT Infusion Department of Oncology in [address] [address] Loyda Lennon M.D. [address] [place] [phone] 11/22/2023 7:30 AM CDT Lab Department of Oncology in [place], [place] [address] [place] [phone] Loyda Lennon M.D. [address] [place] [phone] 11/22/2023 8:45 AM CDT Infusion Department of Oncology in [place], [place] [address] [place] [phone] Loyda Lennon M.D. [address] [place] [phone] 11/28/2023 3:30 PM CDT Clinical Communication Virtual Review in [place], [place] [address] [place] [address] 11/29/2023 9:00 AM CDT Procedure visit Department of Urology in [place], [place] [address] [place] [phone] Mark Colorado M.D. [address] [place] [address] 11/29/2023 11:20 AM CDT Lab Department of Laboratory Medicine and Pathology, [facility], in [address] [phone] Loyda Lennon M.D. [address] [place] [phone] 11/29/2023 11:30 AM CDT Lab Department of Oncology in [place], [place] [address] [place] [phone] Loyda Lennon M.D. [address] [place] [phone] 11/29/2023 1:00 PM CDT Infusion Department of Oncology in [address] [address] Loyda Lennon M.D. [address] [place] [phone] 12/03/2023 1:45 PM CDT Comprehensive Visit Department of Urology in [place], [place] [address] [place] [phone] Mona Egan P.A.-C. [address] [place] [phone] 12/05/2023 1:20 PM CDT Comprehensive Visit Department of Oncology in [place], [place] [address] [place] [phone] Letty Kate M.D. [address] [place] [phone] 12/10/2023 3:00 PM CDT Clinical Communication Virtual Review in [place], [place] [address] [place] [address] 12/10/2023 3:30 PM CDT Procedure visit Department of Urology in [place], [place] [address] [place] [phone] Mark Colorado M.D. [address] [place] [address] 12/12/2023 3:45 PM CDT Appointment Department of Radiology, [facility], in [place], [place] [address] [place] [phone] Na Hernandez M.D., Ph.D. [address] [place] [phone] 12/13/2023 6:00 AM CDT Lab Department of Laboratory Medicine and Pathology, [facility], in [place], [place] [address] [place] [phone] Loyda Lennon M.D. [address] [place] [phone] 12/13/2023 6:20 AM CDT Lab Department of Infusion Therapy in [place], [place] [address] [place] [phone] Loyda Lennon M.D. [address] [place] [phone] 12/13/2023 11:10 AM CDT Office Visit Department of Oncology in [place], [place] [address] [place] [phone] Na Hernandez M.D., Ph.D. [address] [place] [phone] 12/13/2023 1:00 PM CDT Infusion Department of Oncology in [place], [place] [address] [place] [phone] Loyda Lennon M.D. [address] [place] [phone] 12/20/2023 9:20 AM CDT Lab Department of Infusion Therapy in [address] [address] Loyda Lennon M.D. [address] [place] [phone] 12/20/2023 10:30 AM CDT Infusion Department of Oncology in [place], [place] [address] [place] [phone] Loyda Lennon M.D. [address] [place] [phone] 12/25/2023 10:30 AM CDT Appointment Division of Gastroenterology in [address] [phone] Na Hernandez M.D., Ph.D. [address] [place] [phone] 12/27/2023 10:15 AM CDT Lab Department of Oncology in [place], [place] [address] [place] [phone] Loyda Lennon M.D. [address] [place] [phone] 12/27/2023 10:30 AM CDT Lab Department of Laboratory Medicine and Pathology, [facility] in [place], [place] [address] [place] [phone] Loyda Lennon M.D. [address] [place] [phone] 12/27/2023 11:45 AM CDT Infusion Department of Oncology in [place], [place] [address] [place] [phone] Loyda Lennon M.D. [address] [place] [phone] 01/03/2024 1:00 PM CDT Clinical Communication Virtual Review in [place], [place] [address] [place] [address] 01/10/2024 8:00 AM CDT Lab Department of Infusion Therapy in [place], [place] [address] [place] [phone] Loyda Lennon M.D. [address] [place] [phone] 01/10/2024 8:20 AM CDT Lab Department of Laboratory Medicine and Pathology, [facility] in [place], [place] [address] [place] [address] Loyda Lennon M.D. [address] [place] [phone] 01/10/2024 10:30 AM CDT Office Visit Department of Oncology in [place], [place] [address] [place] [phone] Na Hernandez M.D., Ph.D. [address] [place] [phone] 01/10/2024 11:45 AM CDT Infusion Department of Oncology in [place], [place] [address] [place] [phone] Loyda Lennon M.D. [address] [place] [phone] 01/17/2024 8:45 AM CDT Lab Department of Oncology in [place], [place] [address] [place] [phone] Loyda Lennon M.D. [address] [place] [phone] 01/17/2024 10:00 AM CDT Infusion Department of Oncology in [place], [place] [address] [place] [phone] Loyda Lennon M.D. [address] [place] [phone] 01/24/2024 8:00 AM CDT Lab Department of Laboratory Medicine and Pathology, [facility], in [place], [place] [address] [place] [phone] Loyda Lennon M.D. [address] [place] [phone] 01/24/2024 8:15 AM CDT Lab Department of Oncology in [place], [place] [address] [place] [phone] Loyda Lennon M.D. [address] [place] [address] 01/24/2024 9:15 AM CDT Infusion Department of Oncology in [place], [place] [address] [place] [address] Loyda Lennon M.D. [address] [place] [address] Scheduled Procedures Name Priority Associated Diagnoses Date/Ti me HEPATECTOMY RESECTION LIVER Cholangiocarcinoma (HCC) ULTRASOUND LIVER Cholangiocarcinoma (HCC) RECONSTRUCTION PORTAL VEIN Cholangiocarcinoma (HCC) documented as of this encounter Procedures Procedure Name Priority Date/Time Associated Diagnosis Comments GASTROENTEROLOGY IMAGE EXAM Routine 10/22/2023 12:50 PM CDT documented in this encounter Results * ERCP-Gastroenterology Image Exam (10/22/2023 12:50 PM [...] NON RAD IMAGI NG PROCEDURES IIMS NA documented in this encounter Visit Diagnoses Not on filedocumented in this encounter Additional Health Concerns Infection Onset Date Last Indicated Resolved Time Protective Environment 11/07/2022 11/07/2022 documented as of this encounter Care Teams Car Shifter Relationship Specialty Start Date End Date Mark [place] M.D. [address] [place] [address] PCP - General Family Medicine 11/09/22 documented as of this encounter
--- OUTSIDE RECORDS SUMMARY | 2023-11-05 22:06 | XMS_ITS | Encounter Summary ---
Author Organization [facility] Address [address] [place] [address] Care Team Providers Care R D Engineer Name Role Phone Mark Colorado M.D. Primary Care Provider [phone] Encounter Details Date Type Department Care Team (Late st Contact Info) Description 10/21/2023 Orders Only Department of Oncology in [place], [place] [address] [place] [address] Omero Lopes Social History Tobacco Use Types Packs/Day Years Used Date Smoking Tobacco: Never Passive Smoke Exposure: Never Smokeless Tobacco: Never Alcohol Use Standard Drinks/Week Comments Not Currently 0 (1 standard drink = 0.6 oz pur e alcohol) [facility] Utilities Answer Date Recorded In the past 12 months has [employer], gas, oil, or water [employer] threatened to shut off services in your [...] your living situation today? I have a [facility] place to live 10/22/2023 Sex and Gender Information Value Date Recorded Sex Assigned at Male 09/10/2022 12:02 PM CDT Gender Identity Male 09/10/2022 12:02 PM CDT Sexual Orientation Straight 09/10/2022 12 :02 PM CDT documented as of this encounter Plan of Treatment Upcoming Encounters Date Type Department Care Team (Latest Contact Info) Description 11/07/2023 3:15 PM CDT Clinical Communication Virtual Review in [place], [place] [address] [place] [address] 11/15/2023 6:40 AM CDT Lab Department of Laboratory Medicine and Pathology, [facility] in [address] [address] Loyda Lennon M.D. [address] [place] [address] 11/15/2023 8:20 AM CDT Office Visit Department of Oncology in [address] [address] Manjit Velasquez APRN, C.N.P., D.N.P. [address] [place] [address] 11/15/2023 9:30 AM CDT Comprehensive Visit Department of Palliative Care in [address] [address] Patty Gomez APRN, C.N.P., M.S.N. [address] [place] [address] 11/15/2023 2:15 PM CDT Infusion Department of Oncology in [address] [address] Loyda Lennon M.D. [address] [place] [address] 11/22/2023 7:30 AM CDT Lab Department of Oncology in [place], [place] [address] [place] [address] Loyda Lennon M.D. [address] [place] [address] 11/22/2023 8:45 AM CDT Infusion Department of Oncology in [place], [place] [address] [place] [address] Loyda Lennon M.D. [address] [place] [phone] 11/28/2023 3:30 PM CDT Clinical Communication Virtual Review in [place], [place] [address] [place] [address] 11/29/2023 9:00 AM CDT Procedure visit Department of Urology in [place], [place] [address] [place] [phone] Mark Colorado M.D. [address] [place] [address] [place] [address] 11/29/2023 11:20 AM CDT Lab Department of Laboratory Medicine and Pathology, [facility], in [place], [place] [address] [place] [address] Loyda Lennon M.D. [address] [place] [address] 11/29/2023 11:30 AM CDT Lab Department of Oncology in [place], [place] [address] [place] [address] Loyda Lennon M.D. [address] [place] [address] 11/29/2023 1:00 PM CDT Infusion Department of Oncology in [place], [place] [address] [place] [address] Loyda Lennon M.D. [address] [place] [address] 12/03/2023 1:45 PM CDT Comprehensive Visit Department of Urology in [place], [place] [address] [place] [address] Mona Egan P.A.-C. [address] [place] [address] 12/05/2023 1:20 PM CDT Comprehensive Visit Department of Oncology in [place], [place] [address] [place] [address] Letty Kate M.D. [address] [place] [address] 12/10/2023 3:00 PM CDT Clinical Communication Virtual Review in [place], [place] [address] [place] [address] 12/10/2023 3:30 PM CDT Procedure visit Department of Urology in [place], [place] [address] [place] [phone] Mark Colorado M.D. [address] [place] [address] [place] [address] 12/12/2023 3:45 PM CDT Appointment Department of Radiology, [facility], in [place], [place] [address] [place] [address] Na Hernandez M.D., Ph.D. [address] [place] [address] 12/13/2023 6:00 AM CDT Lab Department of Laboratory Medicine and Pathology, [facility], in [place], [place] [address] [place] [address] Loyda Lennon M.D. [address] [place] [address] 12/13/2023 6:20 AM CDT Lab Department of Infusion Therapy in [place], [place] [address] [place] [address] Loyda Lennon M.D. [address] [place] [address] 12/13/2023 11:10 AM CDT Office Visit Department of Oncology in [place], [place] [address] [place] [phone] Na Hernandez M.D., Ph.D. [address] [place] [address] 12/13/2023 1:00 PM CDT Infusion Department of Oncology in [place], [place] [address] [place] [address] Loyda Lennon M.D. [address] [place] [address] 12/20/2023 9:20 AM CDT Lab Department of Infusion Therapy in [place], [place] [address] [place] [address] Loyda Lennon M.D. [address] [place] [address] 12/20/2023 10:30 AM CDT Infusion Department of Oncology in [place], [place] [address] [place] [address] Loyda Lennon M.D. [address] [place] [address] 12/25/2023 10:30 AM CDT Appointment Division of Gastroenterology in [address] [address] Na Hernandez M.D., Ph.D. [address] [place] [phone] 12/27/2023 10:15 AM CDT Lab Department of Oncology in [address] [address] Loyda Lennon M.D. [address] [place] [address] 12/27/2023 10:30 AM CDT Lab Department of Laboratory Medicine and Pathology, [address] [address] Loyda Lennon M.D. [address] [place] [address] 12/27/2023 11:45 AM CDT Infusion Department of Oncology in [address] [address] Loyda Lennon M.D. [address] [place] [phone] 01/03/2024 1:00 PM CDT Clinical Communication Virtual Review in [place], [place] [address] [place] [address] 01/10/2024 8:00 AM CDT Lab Department of Infusion Therapy in [address] [address] Loyda Lennon M.D. [address] [place] [phone] 01/10/2024 8:20 AM CDT Lab Department of Laboratory Medicine and Pathology, [facility], [place] [address] [place] [address] Loyda Lennon M.D. [address] [place] [address] 01/10/2024 10:30 AM CDT Office Visit Department of Oncology in [place], [place] [address] [place] [phone] Na Hernandez M.D., Ph.D. [address] [place] [address] 01/10/2024 11:45 AM CDT Infusion Department of Oncology in [place], [place] [address] [place] [address] Loyda Lennon M.D. [address] [place] [address] 01/17/2024 8:45 AM CDT Lab Department of Oncology in [place], [place] [address] [place] [address] Loyda Lennon M.D. [address] [place] [address] 01/17/2024 10:00 AM CDT Infusion Department of Oncology in [place], [place] [address] [place] [address] Loyda Lennon M.D. [address] [place] [phone] 01/24/2024 8:00 AM CDT Lab Department of Laboratory Medicine and Pathology, [facility], in [place], [place] [address] [place] [address] Loyda Lennon M.D. [address] [place] [address] 01/24/2024 8:15 AM CDT Lab Department of Oncology in [place], [place] [address] [place] [address] Loyda Lennon M.D. [address] [place] [address] 01/24/2024 9:15 AM CDT Infusion Department of Oncology in [place], [place] [address] [place] [address] Loyda Lennon M.D. [address] [place] [address] Scheduled Procedures Name Priority Associated Diagnoses Date/Ti [...] documented as of this encounter Care Teams R D Engineer Relationship Specialty Start Date End Date Mark [place] M.D. [address] [place] [address] PCP - General Family Medicine 11/09/22 documented as of this encounter
--- OUTSIDE RECORDS SUMMARY | 2023-11-05 22:06 | XMS_ITS | Encounter Summary ---
Author Organization [facility] Address [address] [place] [address] Care Team Providers Care Production Service Manager Name Role Phone Mark Colorado M.D. Primary Care Provider [phone] Reason for Visit * Auth/Cert (Routine) Specialty Diagnoses / Procedures Referred By Contac t Referred To Contact Diagnoses Change Mental Status Procedures OBS TO INPT Referral ID Status Reason Start Date Expiration Date Visits Re quested Visits Authorized [id number] 1 1 Encounter Details Date Type Department Care Team (Latest Contact Info) Description 10/22/2023 12:55 PM CDT - 10/22/2023 11:59 PM CDT Hospital Encounter Department of Radiology, [facility] in [place], [place] [address] [place] [address] Hansa Ye M.D., M.S. [address] [place] [address] Discharge Disposition: Home or Self Care Social History Tobacco Use Types Packs/Day Years Used Date Smoking Tobacco: Never Passive Smoke Exposure: Never Smokeless Tobacco: Never Alcohol Use Standard Drinks/Week Comments Not Currently 0 (1 standard drink = 0.6 oz pur e alcohol) occ [facility] Utilities Answer Date Recorded In the past 12 months has e [employer], gas, oil, or water [employer] threatened to shut off services in your [...] your living situation today? I have a [facility] place to live 10/22/2023 Sex [...] each nostril daily. Daily prn 10/24/2023 glucosamine cyw-roffvabybh-kcg 500-200-150 mg tablet Take 1 tablet by [...] 02/14/2023 prochlorperazine (COMPAZINE) 10 mg tabletIndications:Cho langiocarcinoma (HCC),Penitentiary Current Drug Therapy, Chemotherapy Take 1 tablet (10 mg total) by mouth every 6 (six) hours as needed for nausea or vomiting (unrelieved by ondansetron). 30 tablet 3 11/02/2022 11/02/2023 sulfamethoxazole-trim ethoprim (Bactrim DS) 800-160 mg per tabletIndications:Int ra-abdominal infection, community acquired Take 1 tablet by mouth every 12 (twelve) hours for 4 days Indications: Intra-abdominal infection, community acquired. 8 tablet 10/24/2023 10/28/2023 fluticasone propionate (FLONASE) 50 mcg/actuation nasal spray Administer 2 sprays into each nostril daily. 16 g 3 02/14/2023 10/24/2023 lisinopriL 20 mg tablet Take 1 tablet (20 mg total) by mouth daily. 30 tablet 3 10/16/2023 10/24/2023 sulfamethoxazole-trim ethoprim (Bactrim DS) 800-160 mg per tabletIndications:Int ra-abdominal infection, community acquired Take 1 tablet by mouth every 12 (twelve) hours for 4 days Indications: Intra-abdominal infection, community acquired. 8 tablet 10/24/2023 10/24/2023 documented as of this encounter Plan of Treatment Upcoming Encounters Date Type Department Care Team (Latest Contact Info) Description 11/07/2023 3:15 PM CDT Clinical Communication Virtual Review in [address] [address] 11/15/2023 6:40 AM CDT Lab Department of Laboratory Medicine and Pathology, [facility] in [address] [address] Loyda Lennon M.D. [address] [place] [address] 11/15/2023 8:20 AM CDT Office Visit Department of Oncology in [address] [address] Manjit Velasquez APRN, C.N.P., D.N.P. [address] [place] [phone] 11/15/2023 9:30 AM CDT Comprehensive Visit Department of Palliative Care in [address] [address] Patty Gomez APRN, C.N.P., M.S.N. [address] [place] [phone] 11/15/2023 2:15 PM CDT Infusion Department of Oncology in [address] [address] Loyda Lennon M.D. [address] [place] [address] 11/22/2023 7:30 AM CDT Lab Department of Oncology in [place], [place] [address] [place] [address] Loyda Lennon M.D. [address] [place] [address] 11/22/2023 8:45 AM CDT Infusion Department of Oncology in [place], [place] [address] [place] [phone] Loyda Lennon M.D. [address] [place] [address] 11/28/2023 3:30 PM CDT Clinical Communication Virtual Review in [place], [place] [address] [place] [address] 11/29/2023 9:00 AM CDT Procedure visit Department of Urology in [place], [place] [address] [place] [phone] Mark Colorado M.D. [address] [place] [address] [place] [address] 11/29/2023 11:20 AM CDT Lab Department of Laboratory Medicine and Pathology, [facility], in [place], [place] [address] [place] [phone] Loyda Lennon M.D. [address] [place] [address] 11/29/2023 11:30 AM CDT Lab Department of Oncology in [place], [place] [address] [place] [phone] Loyda Lennon M.D. [address] [place] [address] 11/29/2023 1:00 PM CDT Infusion Department of Oncology in [place], [place] [address] [place] [address] Loyda Lennon M.D. [address] [place] [phone] 12/03/2023 1:45 PM CDT Comprehensive Visit Department of Urology in [place], [place] [address] [place] [address] Mona Egan P.A.-C. [address] [place] [address] 12/05/2023 1:20 PM CDT Comprehensive Visit Department of Oncology in [place], [place] [address] [place] [address] Letty Kate M.D. [address] [place] [phone] 12/10/2023 3:00 PM CDT Clinical Communication Virtual Review in [place], [place] [address] [place] [address] 12/10/2023 3:30 PM CDT Procedure visit Department of Urology in [place], [place] [address] [place] [phone] Mark [place] M.D. [facility] [place] [address] 12/12/2023 3:45 PM CDT Appointment Department of Radiology, [facility], in [place], [place] [address] [place] [phone] Na Hernandez M.D., Ph.D. [address] [place] [phone] 12/13/2023 6:00 AM CDT Lab Department of Laboratory Medicine and Pathology, [facility], in [place], [place] [address] [place] [phone] Loyda Lennon M.D. [address] [place] [address] 12/13/2023 6:20 AM CDT Lab Department of Infusion Therapy in [place], [place] [address] [place] [address] Loyda Lennon M.D. [address] [place] [address] 12/13/2023 11:10 AM CDT Office Visit Department of Oncology in [place], [place] [address] [place] [phone] Na Hernandez M.D., Ph.D. [address] [place] [phone] 12/13/2023 1:00 PM CDT Infusion Department of Oncology in [address] [address] Loyda Lennon M.D. [address] [place] [address] 12/20/2023 9:20 AM CDT Lab Department of Infusion Therapy in [address] [address] Loyda Lennon M.D. [address] [place] [address] 12/20/2023 10:30 AM CDT Infusion Department of Oncology in [place], [place] [address] [place] [address] Loyda Lennon M.D. [address] [place] [address] 12/25/2023 10:30 AM CDT Appointment Division of Gastroenterology in [place], [place] [address] [place] [address] Na Hernandez M.D., Ph.D. [address] [place] [phone] 12/27/2023 10:15 AM CDT Lab Department of Oncology in [place], [place] [address] [place] [phone] Loyda Lennon M.D. [address] [place] [address] 12/27/2023 10:30 AM CDT Lab Department of Laboratory Medicine and Pathology, [facility] in [place], [place] [address] [place] [phone] Loyda Lennon M.D. [address] [place] [address] 12/27/2023 11:45 AM CDT Infusion Department of Oncology in [address] [address] Loyda Lennon M.D. [address] [place] [address] 01/03/2024 1:00 PM CDT Clinical Communication Virtual Review in [place], [place] [address] [place] [address] 01/10/2024 8:00 AM CDT Lab Department of Infusion Therapy in [address] [address] Loyda Lennon M.D. [address] [place] [address] 01/10/2024 8:20 AM CDT Lab Department of Laboratory Medicine and Pathology, [facility] in [place], [place] [address] [place] [phone] Loyda Lennon M.D. [address] [place] [address] 01/10/2024 10:30 AM CDT Office Visit Department of Oncology in [place], [place] [address] [place] [phone] Na Hernandez M.D., Ph.D. [address] [place] [address] 01/10/2024 11:45 AM CDT Infusion Department of Oncology in [place], [place] [address] [place] [address] Loyda Lennon M.D. [address] [place] [phone] 01/17/2024 8:45 AM CDT Lab Department of Oncology in [place], [place] [address] [place] [address] oLyda Lennon M.D. [address] [place] [phone] 01/17/2024 10:00 AM CDT Infusion Department of Oncology in [place], [place] [address] [place] [address] Loyda Lennon M.D. [address] [place] [phone] 01/24/2024 8:00 AM CDT Lab Department of Laboratory Medicine and Pathology, [facility], in [place], [place] [address] [place] [address] Loyda Lennon M.D. [address] [place] [phone] 01/24/2024 8:15 AM CDT Lab Department of Oncology in [place], [place] [address] [place] [address] Loyda Lennon M.D. [address] [place] [address] 01/24/2024 9:15 AM CDT Infusion Department of Oncology in [place], [place] [address] [place] [address] Loyda Lennon M.D. [address] [place] [phone] Scheduled Procedures Name Priority Associated Diagnoses Date/Ti me HEPATECTOMY RESECTION LIVER Cholangiocarcinoma (HCC) ULTRASOUND LIVER Cholangiocarcinoma (HCC) RECONSTRUCTION PORTAL VEIN Cholangiocarcinoma (HCC) documented as of this encounter Procedures Procedure Name Priority Date/Time Associated Diagnosis Comments FL FLUORO LESS THAN 1 HOUR RAD - Routine (most inpatients and all outpatients) 10/22/2023 2:02 PM CDT documented in this encounter Results * [place] Fluoro Less Than 1 Hour (10/22/2023 2:02 PM CDT) Narrative ERCP LOS RST - 10/22/2023 2:03 PM CDT This exam does not require a radiologist review or interpretation. Please refer to the patient's medical record on this date for clinical details. Hansa Ye M.D., M.S. IMG FLUORO SCOPY PROCEDURES ERCP LOS RST documented in this encounter Visit Diagnoses Not on filedocumented in this encounter Additional Health Concerns Infection Onset Date Last Indicated Resolved Time Protective Environment 11/07/2022 11/07/2022 documented as of this encounter Care Teams Production Service Manager Relationship Specialty Start Date End Date Mark [place] M.D. [address] [place] [address] PCP - General Family Medicine 11/09/22 documented as of this encounter
--- OUTSIDE RECORDS SUMMARY | 2023-11-05 22:06 | XMS_ITS | Encounter Summary ---
Author Organization [facility] Address [address] [place] [address] Care Team Providers Care Biomedical Equipment Specialist Name Role Phone Mark Colorado M.D. Primary Care Provider [phone] Encounter Details Date Type Department Care Team (Latest Contact Info) Description 10/23/2023 Clinical Communication Division of Gastroenterology in [place], [place] [address] [place] [phone] Isis Fonseca M.D. 200 [place] [phone] Social History Tobacco Use Types Packs/Day Years Used Date Smoking Tobacco: Never Passive Smoke Exposure: Never Smokeless Tobacco: Never Alcohol Use Standard Drinks/Week Comments Not Currently 0 (1 standard drink = 0.6 oz pur e alcohol) [facility] Utilities Answer Date Recorded In the [...] your living situation today? I have a [facility] place to live 10/22/2023 Sex and Gender Information Value Date Recorded Sex Assigned at Male 09/10/2022 12:02 PM CDT Gender Identity Male 09/10/2022 12:02 PM CDT Sexual Orientation Straight 09/10/2022 12 :02 PM CDT documented as of this encounter Plan of Treatment Upcoming Encounters Date Type Department Care Team (Latest Contact Info) Description 11/07/2023 3:15 PM CDT Clinical Communication Virtual Review in [place], [place] 200 [place] [address] 11/15/2023 6:40 AM CDT Lab Department of Laboratory Medicine and Pathology, [facility], in [place], [place] [address] [place] [phone] Loyda Lennon M.D. [address] [place] [phone] 11/15/2023 8:20 AM CDT Office Visit Department of Oncology in [address] [address] Manjit Velasquez APRN, C.N.P., D.N.P. [address] [place] [phone] 11/15/2023 9:30 AM CDT Comprehensive Visit Department of Palliative Care in [address] [address] Patty Gomez APRN, C.N.P., M.S.N. [address] [place] [phone] 11/15/2023 2:15 PM CDT Infusion Department of Oncology in [address] [place] [phone] Loyda Lennon M.D. [address] [place] [phone] 11/22/2023 7:30 AM CDT Lab Department of Oncology in [place], [place] [address] [place] [phone] Loyda Lennon M.D. [address] [place] [phone] 11/22/2023 8:45 AM CDT Infusion Department of Oncology in [place], [place] [address] [place] [phone] Loyda Lennon M.D. [address] [place] [phone] 11/28/2023 3:30 PM CDT Clinical Communication Virtual Review in [place], [place] 200 [place] [address] 11/29/2023 9:00 AM CDT Procedure visit Department of Urology in [place], [place] [address] [place] [phone] Mark Colorado M.D. [facility] [place] [address] 11/29/2023 11:20 AM CDT Lab Department of Laboratory Medicine and Pathology, [facility], in [place], [place] [address] [place] [phone] Loyda Lennon M.D. [address] [place] [address] 11/29/2023 11:30 AM CDT Lab Department of Oncology in [place], [place] [address] [place] [phone] Loyda Lennon M.D. [address] [place] [phone] 11/29/2023 1:00 PM CDT Infusion Department of Oncology in [place], [place] [address] [place] [phone] Loyda Lennon M.D. [address] [place] [address] 12/03/2023 1:45 PM CDT Comprehensive Visit Department of Urology in [place], [place] [address] [place] [phone] Mona Egan P.A.-C. [address] [place] [phone] 12/05/2023 1:20 PM CDT Comprehensive Visit Department of Oncology in [place], [place] [address] [place] [phone] Letty Kate M.D. [address] [place] [phone] 12/10/2023 3:00 PM CDT Clinical Communication Virtual Review in [place], [place] [address] [place] [address] 12/10/2023 3:30 PM CDT Procedure visit Department of Urology in [place], [place] [address] [place] [phone] Mark Colorado M.D. [address] [place] [address] 12/12/2023 3:45 PM CDT Appointment Department of Radiology, [facility], in [place], [place] [address] [place] [phone] Na Hernandez M.D., Ph.D. [address] [place] [phone] 12/13/2023 6:00 AM CDT Lab Department of Laboratory Medicine and Pathology, [facility], in [place], [place] [address] [place] [phone] Loyda Lennon M.D. [address] [place] [address] 12/13/2023 6:20 AM CDT Lab Department of Infusion Therapy in [place], [place] [address] [place] [phone] Loyda Lennon M.D. [address] [place] [phone] 12/13/2023 11:10 AM CDT Office Visit Department of Oncology in [address] [address] Na Hernandez M.D., Ph.D. [address] [place] [phone] 12/13/2023 1:00 PM CDT Infusion Department of Oncology in [address] [address] Loyda Lennon M.D. [address] [place] [phone] 12/20/2023 9:20 AM CDT Lab Department of Infusion Therapy in [address] [address] Loyda Lennon M.D. [address] [place] [address] 12/20/2023 10:30 AM CDT Infusion Department of Oncology in [address] [address] Loyda Lennon M.D. [address] [place] [phone] 12/25/2023 10:30 AM CDT Appointment Division of Gastroenterology in [place], [place] [address] [place] [phone] Na Hernandez M.D., Ph.D. [address] [place] [phone] 12/27/2023 10:15 AM CDT Lab Department of Oncology in [place], [place] [address] [place] [phone] Loyda Lennon M.D. [address] [place] [address] 12/27/2023 10:30 AM CDT Lab Department of Laboratory Medicine and Pathology, [facility] in [place], [place] [address] [place] [phone] Loyda Lennon M.D. [address] [place] [phone] 12/27/2023 11:45 AM CDT Infusion Department of Oncology in [address] [address] Loyda Lennon M.D. [address] [place] [phone] 01/03/2024 1:00 PM CDT Clinical Communication Virtual Review in [place], [place] [address] [place] [address] 01/10/2024 8:00 AM CDT Lab Department of Infusion Therapy in [address] [address] Loyda Lennon M.D. [address] [place] [phone] 01/10/2024 8:20 AM CDT Lab Department of Laboratory Medicine and Pathology, [facility] in [place], [place] [address] [place] [phone] Loyda Lennon M.D. [address] [place] [phone] 01/10/2024 10:30 AM CDT Office Visit Department of Oncology in [place], [place] [address] [place] [phone] Na Hernandez M.D., Ph.D. [address] [place] [phone] 01/10/2024 11:45 AM CDT Infusion Department of Oncology in [address] [address] Loyda Lennon M.D. [address] [place] [phone] 01/17/2024 8:45 AM CDT Lab Department of Oncology in [address] [address] Loyda Lennon M.D. [address] [place] [address] 01/17/2024 10:00 AM CDT Infusion Department of Oncology in [address] [address] Loyda Lennon M.D. [address] [place] [phone] 01/24/2024 8:00 AM CDT Lab Department of Laboratory Medicine and Pathology, [facility], in [place], [place] [address] [place] [phone] Loyda Lennon M.D. [address] [place] [phone] 01/24/2024 8:15 AM CDT Lab Department of Oncology in [place], [place] [address] [place] [address] Loyda Lennon M.D. [address] [place] [phone] 01/24/2024 9:15 AM CDT Infusion Department of Oncology in [place], [place] [address] [place] [address] Loyda Lennon M.D. [address] [place] [phone] Scheduled Procedures Name Priority Associated Diagnoses Date/Ti me HEPATECTOMY RESECTION LIVER Cholangiocarcinoma (HCC) ULTRASOUND LIVER Cholangiocarcinoma (HCC) RECONSTRUCTION PORTAL VEIN Cholangiocarcinoma (HCC) documented as of this encounter Visit Diagnoses Not on filedocumented in this encounter Additional Health Concerns Infection Onset Date Last Indicated Resolved Time Protective Environment 11/07/2022 11/07/2022 documented as of this encounter Care Teams Biomedical Equipment Specialist Relationship Specialty Start Date End Date Mark Colorado M.D. [address] [place] [address] PCP - General Family Medicine 11/09/22 documented as of this encounter
--- OUTSIDE RECORDS SUMMARY | 2023-11-05 22:06 | XMS_ITS | Encounter Summary ---
Author Organization [facility] Address [address] [place] [address] Care Team Providers Care Guest Service Agent Name Role Phone Mark Colorado M.D. Primary Care Provider [phone] Reason for Referral * Outpatient (Routine) - Closed Specialty Diagnoses / Procedures Referred By Chloe t Referred To Contact Oncology Diagnoses Cholangiocarcinoma (HCC) Na Hernandez M.D., Ph.D. 200 [place] [address] [facility] Referral ID Status Reason Start Date Expiration Date Visits Re quested Visits Authorized [id number] Closed 10/22/2023 04/22/2025 1 1 Scheduling Instructions GIR if available Encounter Details Date Type Department Care Team (Latest Contact Info) Description 10/22/2023 Orders Only Department of Oncology in [place], [place] [address] [place] [address] Omero Lopes Pure Hypercholesterolemia (Primary Dx); Cholangiocarcinoma (HCC) Social History Tobacco Use Types Packs/Day Years Used Date Smoking Tobacco: Never Passive Smoke Exposure: Never Smokeless Tobacco: Never Alcohol Use Standard Drinks/Week Comments Not Currently 0 (1 standard drink = 0.6 oz pur e alcohol) [facility] Utilities Answer Date Recorded In [...] your living situation today? I have a [facility] place to live 10/22/2023 Sex and Gender Information Value Date Recorded Sex Assigned at Male 09/10/2022 12:02 PM CDT Gender Identity Male 09/10/2022 12:02 PM CDT Sexual Orientation Straight 09/10/2022 12 :02 PM CDT documented as of this encounter Plan of Treatment Upcoming Encounters Date Type Department Care Team (Latest Contact Info) Description 11/07/2023 3:15 PM CDT Clinical Communication Virtual Review in [place], [place] 200 [place] [address] 11/15/2023 6:40 AM CDT Lab Department of Laboratory Medicine and Pathology, [facility] in [place], [place] [address] [place] [phone] Loyda Lennon M.D. [address] [place] [phone] 11/15/2023 8:20 AM CDT Office Visit Department of Oncology in [address] [address] Manjit Velasquez, KAYLEE, C.N.P., D.N.P. [address] [place] [phone] 11/15/2023 9:30 AM CDT Comprehensive Visit Department of Palliative Care in [place], [place] [address] [place] [phone] Patty Gomez APRN, C.NHoldenP., M.S.N. [address] [place] [phone] 11/15/2023 2:15 PM CDT Infusion Department of Oncology in [place], [place] [address] [place] [phone] Loyda Lennon M.D. [address] [place] [phone] 11/22/2023 7:30 AM CDT Lab Department of Oncology in [place], [place] [address] [place] [phone] Loyda Lennon M.D. [address] [place] [phone] 11/22/2023 8:45 AM CDT Infusion Department of Oncology in [place], [place] [address] [place] [phone] Loyda Lennon M.D. [address] [place] [phone] 11/28/2023 3:30 PM CDT Clinical Communication Virtual Review in [place], [place] [address] [place] [address] 11/29/2023 9:00 AM CDT Procedure visit Department of Urology in [place], [place] [address] [place] [phone] Mark Colorado M.D. [address] [place] [address] 11/29/2023 11:20 AM CDT Lab Department of Laboratory Medicine and Pathology, [facility], in [place], [place] [address] [place] [phone] Loyda Lennon M.D. [address] [place] [phone] 11/29/2023 11:30 AM CDT Lab Department of Oncology in [place], [place] [address] [place] [address] Loyda Lennon M.D. [address] [place] [phone] 11/29/2023 1:00 PM CDT Infusion Department of Oncology in [place], [place] [address] [place] [phone] Loyda Lennon M.D. [address] [place] [phone] 12/03/2023 1:45 PM CDT Comprehensive Visit Department of Urology in [address] [address] Mona Egan, PJulio César [address] [place] [phone] 12/05/2023 1:20 PM CDT Comprehensive Visit Department of Oncology in [place], [place] [address] [place] [phone] Letty Kate M.D. [address] [place] [phone] 12/10/2023 3:00 PM CDT Clinical Communication Virtual Review in [place], [place] [address] [place] [address] 12/10/2023 3:30 PM CDT Procedure visit Department of Urology in [place], [place] [address] [place] [phone] Mark Colorado M.D. [address] [place] [address] 12/12/2023 3:45 PM CDT Appointment Department of Radiology, [facility], in [place], [place] [address] [place] [address] Na Hernandez M.D., Ph.D. [address] [place] [phone] 12/13/2023 6:00 AM CDT Lab Department of Laboratory Medicine and Pathology, [facility] in [place], [place] [address] [place] [phone] Loyda Lennon M.D. [address] [place] [phone] 12/13/2023 6:20 AM CDT Lab Department of Infusion Therapy in [place], [place] [address] [place] [address] Loyda Lennon M.D. [address] [place] [phone] 12/13/2023 11:10 AM CDT Office Visit Department of Oncology in [place], [place] [address] [place] [phone] Na Hernandez M.D., Ph.D. [address] [place] [phone] 12/13/2023 1:00 PM CDT Infusion Department of Oncology in [place], [place] [address] [place] [address] Loyda Lenonn M.D. [address] [place] [phone] 12/20/2023 9:20 AM CDT Lab Department of Infusion Therapy in [place], [place] [address] [place] [phone] Loyda Lennon M.D. [address] [place] [phone] 12/20/2023 10:30 AM CDT Infusion Department of Oncology in [place], [place] [address] [place] [phone] Loyda Lennon M.D. [address] [place] [phone] 12/25/2023 10:30 AM CDT Appointment Division of Gastroenterology in [address] [address] Na Hernandez M.D., Ph.D. [address] [place] [phone] 12/27/2023 10:15 AM CDT Lab Department of Oncology in [place], [place] [address] [place] [address] Loyda Lennon M.D. [address] [place] [phone] 12/27/2023 10:30 AM CDT Lab Department of Laboratory Medicine and Pathology, [facility], in [place], [place] [address] [place] [phone] Loyda Lenonn M.D. [address] [place] [phone] 12/27/2023 11:45 AM CDT Infusion Department of Oncology in [address] [address] Loyda Lennon M.D. [address] [place] [phone] 01/03/2024 1:00 PM CDT Clinical Communication Virtual Review in [place], [place] [address] [place] [address] 01/10/2024 8:00 AM CDT Lab Department of Infusion Therapy in [address] [address] Loyda Lennon M.D. [address] [place] [phone] 01/10/2024 8:20 AM CDT Lab Department of Laboratory Medicine and Pathology, [facility] in [place], [place] [address] [place] [phone] Loyda Lennon M.D. [address] [place] [phone] 01/10/2024 10:30 AM CDT Office Visit Department of Oncology in [address] [address] Na Hernandez M.D., Ph.D. [address] [place] [phone] 01/10/2024 11:45 AM CDT Infusion Department of Oncology in [address] [address] Loyda Lennon M.D. [address] [place] [phone] 01/17/2024 8:45 AM CDT Lab Department of Oncology in [address] [address] Loyda Lennon M.D. [address] [place] [phone] 01/17/2024 10:00 AM CDT Infusion Department of Oncology in [place], [place] [address] [place] [phone] Loyda Lennon M.D. [address] [place] [phone] 01/24/2024 8:00 AM CDT Lab Department of Laboratory Medicine and Pathology, [facility] in [place], [place] [address] [place] [phone] Loyda Lennon M.D. [address] [place] [phone] 01/24/2024 8:15 AM CDT Lab Department of Oncology in [place], [place] [address] [place] [phone] Loyda Lennon M.D. [address] [place] [phone] 01/24/2024 9:15 AM CDT Infusion Department of Oncology in [address] [address] Loyda Lennon M.D. [address] [place] [phone] Scheduled Procedures Name Priority Associated Diagnoses Date/Ti me HEPATECTOMY RESECTION LIVER Cholangiocarcinoma (HCC) ULTRASOUND LIVER Cholangiocarcinoma (HCC) RECONSTRUCTION PORTAL VEIN Cholangiocarcinoma (HCC) Scheduled Referrals Name Type Priority Associated Diagnoses Orde r Schedule Oncology office visit (clinic) Outpatient Referral Routine Cholangiocarcinoma (HCC) Expected: 10/29/2023, Expires: 01/21/2025 documented as of this encounter Visit Diagnoses Diagnosis Pure Hypercholesterolemia- Primary Cholangiocarcinoma (HCC) documented in this encounter Additional Health Concerns Infection Onset Date Last Indicated Resolved Time Protective Environment 11/07/2022 11/07/2022 COVID19 Pending 10/22/2023 10/22/2023 10/22/2023 4 :18 AM CDT documented as of this encounter Care Teams Guest Service Agent Relationship Specialty Start Date End Date Mark Colorado M.D. [address] [place] [address] PCP - General Family Medicine 11/09/22 documented as of this encounter
--- OUTSIDE RECORDS SUMMARY | 2023-11-05 22:06 | XMS_ITS | Encounter Summary ---
Author Organization [facility] Address [address] [place] [address] Care Team Providers Care Section Leader And Machine Setter Name Role Phone Mark Colorado M.D. Primary Care Provider Reason for Visit * Auth/Cert (Routine) Specialty Diagnoses / Procedures Referred By Chloe t Referred To Contact Diagnoses Change Mental Status Procedures OBS TO INPT Referral ID Status Reason Start Date Expiration Date Visits Re quested Visits Authorized [id number] 1 1 Encounter Details Date Type Department Care Team (Latest Contact Info) Description 10/22/2023 1:20 PM CDT Anesthesia Event Division of Gastroenterology in [place], [place] [address] [place] [address] Lynsey Byole, SUBSORTER, [employer] [address] [place] [address] Siena Perez M.D. [address] [place] [address] Anesthesia Record Procedure Summary Procedure Name Responsible Anesthesiologist Anesthesia Start Time Anesthesia Stop Time ERCP Lynsey Boyle A PRN, [employer] 10/22/23 1320 10/22/23 1411 Events Date Time Event Comment 10/22/2023 1320 An Start Machine/Equipme nt Checked Infection Precautions Followed Procedure/Site Verified NPO Status Verified Supine Standard ASA Monitors Applied 1324 An Induction 1327 An Intubation 1330 Turnover to Proceduralist 1337 Proc Start 1356 Proc Fin 1400 Turnover to ANE Staff 1400 Anes CS Handoff I, Karen waldron APRN, LINDA, attest that I have reconciled the controlled substances and that I have reviewed all the significant information with the next anesthesia provider assuming care of this patient. 1405 Airway Removal Criteria Met 1405 Extubation/Airway Removed 1406 an stop data 1411 An End I completed my handoff to the receiving staff during which we 1. Identified the patient 2. Identified the responsible provider 3. Reviewed the pertinent medical history 4. Discussed the surgical course 5. Reviewed intra-op anesthesia management and issues during anesthesia 6. Set expectations for post-procedure period 7. Allowed opportunity for questions and acknowledgement of understanding. Meds Name Total fentanyl injection 50 mcg/mL 50 mcg lidocaine 2% (mg) injection 100 mg succinylcholine 20 mg/mL injection 100 m g ondansetron 4 mg/2 mL injection 4 mg propofol 10 mg/mL infusion 342.76 mg propofol 10 mg/mL injection 130 mg piperacillin-tazobactam IVPB 3.375 g 3.3 75 g dexAMETHasone (Decadron) injection 4 mg/ mL 8 mg ketamine 10 mg/mL injection 20 mg Lactated Ringers Free Drip 200 mL * Agents No agents on file. * Blood No blood administrations on file. Lines, Drains, and Airways Type Details Placement Removal Implanted Port Single Lumen 10/23/22; Right; Chest 10/23/22 0000 by Talia Villalta, R.N. Peripheral IV Placement Date: 10/22/23; Placement Time: 0000; Existing LDA Placed by: Other hospital; Catheter Size: 18 G; Orientation: Right; Location: Antecubital; Removal Date: 10/23/23; Removal Time: 1119; Removal Reason: Leaking 10/22/23 0000 by Maria Del Carmen Dorsey, R.NHolden 10/23/23 1119 by Talia Villalta RMagdalena ETT Placement Date: 10/22/23; Placement Time: 1327 (created via procedure documentation); Mask Ventilation: Not attempted; Technique: Video laryngoscopy; Type: Standard ETT; Single Lumen Tube Size: 7.5 mm; Cuffed: Yes; Location: Oral; Grade View: Grade 1; Insertion Attempts: 1; Placement Verification: Bilateral breath sounds, Positive ETCO2, Symmetrical chest wall movement; Removal Date: 10/22/23; Removal Time: 1405 10/22/23 1327 by Lynsey Boyle APRN, CRNA 10/22/23 1405 by Lynsey Boyle APRN [employer] documented in this encounter Social History Tobacco Use Types Packs/Day Years Used Date Smoking Tobacco: Never Passive Smoke Exposure: Never Smokeless Tobacco: Never Alcohol Use Standard Drinks/Week Comments Not Currently 0 (1 standard drink = 0.6 oz pur e alcohol) [facility] Utilities Answer Date Recorded In the past 12 months has e uSamp, gas, oil, or water [employer] threatened to shut off services in your [...] your living situation today? [facility] live 10/22/2023 Sex and Gender Information Value Date Recorded Sex Assigned at Male 09/10/2022 12:02 PM CDT Gender Identity Male 09/10/2022 12:02 PM CDT Sexual Orientation Straight 09/10/2022 12 :02 PM CDT documented as of this encounter OR Notes * Anesthesia Postprocedure Evaluation - Lynsey Boyle APRN, CRNA - 10/22/2023 2:11 PM CDT Patient: Jorge Luis Sepulveda Procedure Summary Date: 10/22/23 Room / Location: Division of Gastroenterology in [place], [place] Anesthesia Start: 1320 Anesthesia Stop: 1411 Procedure: ERCP Diagnosis: Scheduled Providers: Yariel Flores M.D., M.S. Responsible Provider: Lynsey Boyle APRN, CRNA Anesthesia Type: general ASA Status: 3 Anesthesia Type: general Last vitals Vitals Value Taken Time BP 145/74 10/22/23 1410 Temp 37.1 ??C 10/22/23 1411 Pulse 76 10/22/23 1411 Resp 19 10/22/23 1411 SpO2 91 % 10/22/23 1411 Vitals shown include unfiled device data. Please reference Vitals flowsheet for most recent vital signs. Anesthesia Post Evaluation Patient Disposition: general care unit Cardiovascular status: hemodynamics (HR & BP) acceptable Respiratory status: patent airway with spontaneous effort Temperature: normothermic Oxygen requirements: room air Level of consciousness: awake Pain score: pain adequately controlled and/or at baseline Post Op nausea/vomiting: none Hydration status: euvolemic * Anesthesia Procedure Notes - Lynsey Boyle APRN, CRNA - 10/22/2023 1:35 PM CDTAssociated Order(s): Airway Airway Date/Time: 10/22/2023 1:27 PM Performed by: Lynsey Boyle APRN, CRNA Authorized by: Lynsey Boyle APRN, CRNA Patient location during procedure: OR / Procedure Area PROCEDURE DETAILS: Mask difficulty assessment: not attempted Final airway type: video laryngoscope Laryngeal Manipulation: no Final best view of glottic structures - Cormack/Lehane Score: grade 1 ETT location: oral VL device: glide scope Thibodaux scope blade size: 4 Tube size: 7.5 [...] ANESTHESIA Anesthesia method: anesthesia POST PROCEDURE DETAILS: Procedure outcome: successful Notable Events: no complications * Anesthesia Preprocedure Evaluation - Siena Perez M.D. - 10/22/2023 1:08 PM CDT Preprocedure Anesthesia & H&P Assessment Procedure Summary Date/Time: 10/22/23 1300 Scheduled providers: Yariel Flores M.D., M.S. Procedure: ERCP Location: Division of Gastroenterology in [place], [place] Pertinent components of the patient's history including current problem list, medical history, surgical history, family history, social history, medications and allergies were reviewed. Present illness and pre-op diagnosis were confirmed. The planned surgery / procedure was verified with the patient / legal guardian. The patient's general health condition remains unchanged RELEVANT COMORBID CONDITIONS HEME (+) Anemia Chemotherapy Induced Digestive (+) Cholangiocarcinoma (HCC) Hematologic (+) Thrombocytopenia Drug Induced Immune (+) Neutropenia Chemotherapy Induced (HCC) Other (+) Retirement Current Drug Therapy, Chemotherapy (+) Peritoneal Carcinomatosis (HCC) (+) Weakness General OBJECTIVE PHYSICAL EXAMINATION Airway (HEENT) Mallampati: III TM Distance: >3 FB Neck ROM: Full Mouth Opening: >3 cm Cardiovascular Rhythm: Regular Rate: Normal Cardiovascular Assessment: cardiovascular normal Functional Capacity: >4 METS Pulmonary Pulmonary Assessment: Clear General / Constitutional Constitutional Assessment: Normal General State of Health:: calm Neurological Neurologic Assessment: alert Dental Dental Assessment: dentition intact ASSESSMENT / PLAN ANESTHESIA PLAN ASA: 3 Anesthesia Plan: general Patient seen and allergies reviewed, anesthesia plan and risks discussed directly with patient /legal guardian or through an registered nurse cardiovascular icu. Risks/Benefits/Alternatives of Blood transfusion discussed with patient / legal guardian, includingan opportunity to ask questions and/or decline some or all transfusion therapies. The patient / legal guardian consented to the use of all blood products, as deemed medically necessary Approval to Proceed: approved for anesthesia documented in this encounter Plan of Treatment Upcoming Encounters Date Type Department Care Team (Latest Contact Info) Description 11/07/2023 3:15 PM CDT Clinical Communication Virtual Review in [place], [place] [address] [place] [address] 11/15/2023 6:40 AM CDT Lab Department of Laboratory Medicine and Pathology, [facility], in [address] [address] Loyda Lennon M.D. [address] [place] [phone] 11/15/2023 8:20 AM CDT Office Visit Department of Oncology in [address] [phone] Manjit Velasquez APRN, C.N.P., D.N.P. [address] [place] [phone] 11/15/2023 9:30 AM CDT Comprehensive Visit Department of Palliative Care in [address] [phone] Patty Gomez APRN, C.N.P., M.S.N. [address] [place] [phone] 11/15/2023 2:15 PM CDT Infusion Department of Oncology in [address] [address] Loyda Lennon M.D. [address] [place] [phone] 11/22/2023 7:30 AM CDT Lab Department of Oncology in [address] [address] Loyda Lennon M.D. [address] [place] [phone] 11/22/2023 8:45 AM CDT Infusion Department of Oncology in [address] [address] Loyda Lennon M.D. [address] [place] [phone] 11/28/2023 3:30 PM CDT Clinical Communication Virtual Review in [place], [place] [address] [place] [address] 11/29/2023 9:00 AM CDT Procedure visit Department of Urology in [place], [place] [address] [place] [phone] Mark Colorado M.D. [address] [place] [address] 11/29/2023 11:20 AM CDT Lab Department of Laboratory Medicine and Pathology, [facility] in [place], [place] [address] [place] [phone] Loyda Lennon M.D. [address] [place] [phone] 11/29/2023 11:30 AM CDT Lab Department of Oncology in [place], [place] [address] [place] [address] Loyda Lennon M.D. [address] [place] [phone] 11/29/2023 1:00 PM CDT Infusion Department of Oncology in [place], [place] [address] [place] [address] Loyda Lennon M.D. [address] [place] [phone] 12/03/2023 1:45 PM CDT Comprehensive Visit Department of Urology in [place], [place] [address] [place] [phone] Mona Egan, PHoldenAHolden-Sara [address] [place] [phone] 12/05/2023 1:20 PM CDT Comprehensive Visit Department of Oncology in [place], [place] [address] [place] [address] Letty Kate M.D. [address] [place] [phone] 12/10/2023 3:00 PM CDT Clinical Communication Virtual Review in [place], [place] [address] [place] [address] 12/10/2023 3:30 PM CDT Procedure visit Department of Urology in [place], [place] [address] [place] [phone] Mark Colorado M.D. [address] [place] [address] 12/12/2023 3:45 PM CDT Appointment Department of Radiology, [facility], in [place], [place] [address] [place] [phone] Na Hernandez M.D., Ph.D. [address] [place] [phone] 12/13/2023 6:00 AM CDT Lab Department of Laboratory Medicine and Pathology, [facility], in [place], [place] [address] [place] [address] Loyda Lennon M.D. [address] [place] [phone] 12/13/2023 6:20 AM CDT Lab Department of Infusion Therapy in [place], [place] [address] [place] [phone] Loyda Lennon M.D. [address] [place] [phone] 12/13/2023 11:10 AM CDT Office Visit Department of Oncology in [place], [place] [address] [place] [phone] Na Hernandez M.D., Ph.D. [address] [place] [phone] 12/13/2023 1:00 PM CDT Infusion Department of Oncology in [place], [place] [address] [place] [phone] Loyda Lennon M.D. [address] [place] [phone] 12/20/2023 9:20 AM CDT Lab Department of Infusion Therapy in [address] [address] Loyda Lennon M.D. [address] [place] [phone] 12/20/2023 10:30 AM CDT Infusion Department of Oncology in [place], [place] [address] [place] [address] Loyda Lennon M.D. [address] [place] [phone] 12/25/2023 10:30 AM CDT Appointment Division of Gastroenterology in [address] [phone] Na Hernandez M.D., Ph.D. [address] [place] [phone] 12/27/2023 10:15 AM CDT Lab Department of Oncology in [address] [address] Loyda Lennon M.D. [address] [place] [phone] 12/27/2023 10:30 AM CDT Lab Department of Laboratory Medicine and Pathology, [facility] in [place], [place] [address] [place] [phone] Loyda Lennon M.D. [address] [place] [phone] 12/27/2023 11:45 AM CDT Infusion Department of Oncology in [place], [place] [address] [place] [phone] Loyda Lennon M.D. [address] [place] [phone] 01/03/2024 1:00 PM CDT Clinical Communication Virtual Review in [place], [place] [address] [place] [address] 01/10/2024 8:00 AM CDT Lab Department of Infusion Therapy in [place], [place] [address] [place] [phone] Loyda Lennon M.D. [address] [place] [phone] 01/10/2024 8:20 AM CDT Lab Department of Laboratory Medicine and Pathology, [facility], in [place], [place] [address] [place] [phone] Loyda Lennon M.D. [address] [place] [phone] 01/10/2024 10:30 AM CDT Office Visit Department of Oncology in [address] [phone] Na Hernandez M.D., Ph.D. [address] [place] [phone] 01/10/2024 11:45 AM CDT Infusion Department of Oncology in [place], [place] [address] [place] [phone] Loyda Lennon M.D. [address] [place] [phone] 01/17/2024 8:45 AM CDT Lab Department of Oncology in [place], [place] [address] [place] [phone] Loyda Lennon M.D. [address] [place] [phone] 01/17/2024 10:00 AM CDT Infusion Department of Oncology in [place], [place] [address] [place] [address] Loyda Lennon M.D. [address] [place] [phone] 01/24/2024 8:00 AM CDT Lab Department of Laboratory Medicine and Pathology, [facility], in [place], [place] [address] [place] [phone] Loyda Lennon M.D. [address] [place] [phone] 01/24/2024 8:15 AM CDT Lab Department of Oncology in [place], [place] [address] [place] [phone] Loyda Lennon M.D. [address] [place] [phone] 01/24/2024 9:15 AM CDT Infusion Department of Oncology in [place], [place] [address] [place] [phone] Loyda Lennon M.D. [address] [place] [phone] Scheduled Procedures Name Priority Associated Diagnoses Date/Ti me HEPATECTOMY RESECTION LIVER Cholangiocarcinoma (HCC) ULTRASOUND LIVER Cholangiocarcinoma (HCC) RECONSTRUCTION PORTAL VEIN Cholangiocarcinoma (HCC) documented as of this encounter Procedures Procedure Name Priority Date/Time Associated Diagnosis Comments LDA ANE ENDOTRACHEAL AIRWAY Routine 10/22/2023 1:27 PM CDT documented in this encounter Results * LDA ANE ENDOTRACHEAL AIRWAY (10/22/2023 1:27 [...] ETT location: oral VL device: glide scope Thibodaux scope blade size: 4 Tube size: 7.5 [...] Lynsey Boyle APRN, CRNA ANESTHESIA O RDERABLES documented in this encounter Visit Diagnoses Not on filedocumented in this encounter Administered Medications Inactive Administered Medications - up to 3 most recent administrations Medication Order MAR Action Action Date Dose Rate Site dexAMETHasone injection (Decadron) intravenous, As needed, Starting on Sat10/22/23 at 1335, Anesthesia Intra-op Given 10/22/2023 1:35 PM CDT 8 mg fentaNYL injection (Sublimaze) intravenous, As needed, Starting on e 10/22/23 at 1324, Anesthesia Intra-op Given 10/22/2023 1:24 PM CDT 50 mcg ketamine injection (Ketalar) intravenous, As needed, Starting on Sat10/22/23 at 1324, Anesthesia Intra-op Given 10/22/2023 1:24 PM CDT 20 mg Lactated Ringer's intravenous, Continuous Infusion: Per Instructions PRN, Starting on Sat10/22/23 at 1320, Anesthesia Intra-op New Bag 10/22/2023 1:20 PM CDT lidocaine (PF) (cardiac) injection intravenous, As needed, Starting on Sat10/22/23 at 1324, Anesthesia Intra-op Given 10/22/2023 1:24 PM CDT 100 mg ondansetron (PF) injection (Zofran) intravenous, As needed, Starting on Sat10/22/23 at 1401, Anesthesia Intra-op Given 10/22/2023 2:01 PM CDT 4 mg piperacillin-tazobacta m in dextrose (iso osm) IVPB (Zosyn) intravenous, Administer over 0.5 Hours, As needed, Starting on Sat10/22/23 at 1334, Anesthesia Intra-op Given 10/22/2023 1:34 PM CDT 3.375 g propofol 10 mg/mL infusion (Diprivan) intravenous, Continuous Infusion: Per Instructions PRN, Starting on Sat10/22/23 at 1327, Anesthesia Intra-op Rate/Dose Change 10/22/2023 1:43 PM CDT 150 mcg/kg/min 81.18 mL/hr New Bag 10/22/2023 1:27 PM CDT 125 mcg/kg/min 67.65 mL/ hr propofoL injection (Diprivan) intravenous, As needed, Starting on Sat10/22/23 at 1324, Anesthesia Intra-op Given 10/22/2023 1:53 PM CDT 10 mg Given 10/22/2023 1:24 PM CDT 120 mg succinylcholine (PF) injection (Anectine) intravenous, As needed, Starting on Sat10/22/23 at 1324, Anesthesia Intra-op Given 10/22/2023 1:24 PM CDT 100 mg documented in this encounter Additional Health Concerns Infection Onset Date Last Indicated Resolved Time Protective Environment 11/07/2022 11/07/2022 documented as of this encounter Care Teams Section Leader And Machine Setter Relationship Specialty Start Date End Date Mark Colorado M.D. [address] [place] [address] PCP - General Family Medicine 11/09/22 documented as of this encounter
--- OUTSIDE RECORDS SUMMARY | 2023-11-05 22:07 | XMS_ITS | Encounter Summary ---
Author Organization [facility] Address [address] [place] [address] Care Team Providers Care Knitter Hand Name Role Phone Mark Colorado M.D. Primary Care Provider [phone] Reason for Visit * Reason Onset Date Comments Symptom Assessment 10/11/2023 Nausea, pain Encounter Details Date Type Department Care Team (Latest Contact Info) Description 10/11/2023 Clinical Communication Department of Oncology in [place], [place] [address] [place] [address] Jodi Rosa R.N., O.C.N. Symptom Assessment (Nausea, pain) Social History Tobacco Use Types Packs/Day Years Used Date Smoking Tobacco: Never Passive Smoke Exposure: Never Smokeless Tobacco: Never Alcohol Use Standard Drinks/Week Comments Not Currently 0 (1 standard drink = 0.6 oz pur e alcohol) occ [facility] Utilities Answer Date Recorded In the [...] 09/10/2022 PHQ-2 Answer Date Recorded PHQ-2 Score 1 10/10/2023 Exercise Vital Sign Answer Date Recorde d [...] I have a karen place to live 10/10/2023 Sex and Gender Information Value Date Recorded Sex Assigned at Male 09/10/2022 12:02 PM CDT Gender Identity Male 09/10/2022 12:02 PM CDT Sexual Orientation Straight 09/10/2022 12 :02 PM CDT documented as of this encounter Miscellaneous Notes * Telephone Encounter - Sukhi Duong M.S.N., R.N. - 10/11/2023 2:44 PM CDT SUBJECTIVE CHIEF COMPLAINT / REASON FOR CALL Symptom Assessment (Nausea, pain) ASSESSMENT I spoke with Wilfredo on the phone as Mr. Sepulveda is resting. Wilfredo tells me that since his last treatment on 10/07, his energy has been declining. She also adds the steroids that he is given at the end of his chemo administration usually help him recover quickly after his treatment, but not this time. He also has been experiencing increased abdominal pain and nausea. He has taken two doses of dilaudid already today, but the pain has not improved. Patient can take Tylenol but does not want to. He has also taken Zofran for the nausea with no relief. One episode of vomiting yesterday and no bowel movement since yesterday. He has only had a cereal, one egg and half a cup of juice today. Wilfredo states partof the reason he is avoiding eating is because of the nausea. Patient has been laying down all day today. No fever, shortness of breath or chest pain reported. PLAN I have discussed the above information with Dr. Woods and the following recommendations have beenmade. Patient to take dilaudid every 4 hours as prescribed. Currently not taking as prescribed. Encouraged to add Tylenol on the pain regimen to see if it helps with pain management. Encouraged to add Compazine and alternate with Zofran for nausea every 8 hours. Encourage to increase fluid intake. I have discussed with Wilfredo if there is no improvement with the above recommendations to report to the emergency department. I have stated that the patient can become dehydrated if he continues to not take in enough fluids. I explained to Wilfredo that he can receive fluids in the ED. Also, if the pain becomes intolerable, he would be able to receive additional pain medication in the ED. Wilfredo expresses understanding of our discussion. I also encouraged Wilfredo to call the after-hour number they have any questions. Information/Education: patient/caller able to teach back. Caller agreeable to plan of care: yes. The following references were used: Lee Woods M.D., M.P.H. . documented in this encounter Plan of Treatment Upcoming Encounters Date Type Department Care Team (Latest Contact Info) Description 11/07/2023 3:15 PM CDT Clinical Communication Virtual Review in [address] [phone] 11/15/2023 6:40 AM CDT Lab Department of Laboratory Medicine and Pathology, [facility] in [address] [address] Loyda Lennon M.D. [address] [place] [phone] 11/15/2023 8:20 AM CDT Office Visit Department of Oncology in [address] [address] Manjit Velasquez, KAYLEE, C.N.P., D.N.P. [address] [place] [phone] 11/15/2023 9:30 AM CDT Comprehensive Visit Department of Palliative Care in [address] [address] Patty Gomez APRN, C.N.P., M.S.N. [address] [place] [address] 11/15/2023 2:15 PM CDT Infusion Department of Oncology in [place], [place] [address] [place] [address] Loyda Lennon M.D. [address] [place] [address] 11/22/2023 7:30 AM CDT Lab Department of Oncology in [place], [place] [address] [place] [phone] Loyda Lennon M.D. [address] [place] [address] 11/22/2023 8:45 AM CDT Infusion Department of Oncology in [place], [place] [address] [place] [phone] Loyda Lennon M.D. [address] [place] [address] 11/28/2023 3:30 PM CDT Clinical Communication Virtual Review in [place], [place] [address] [place] [address] 11/29/2023 9:00 AM CDT Procedure visit Department of Urology in [place], [place] [address] [place] [phone] Mark Colorado M.D. [facility] [place] [address] 11/29/2023 11:20 AM CDT Lab Department of Laboratory Medicine and Pathology, [facility], in [place], [place] [address] [place] [address] Loyda Lennon M.D. [address] [place] [address] 11/29/2023 11:30 AM CDT Lab Department of Oncology in [place], [place] [address] [place] [phone] Loyda Lennon M.D. [address] [place] [address] 11/29/2023 1:00 PM CDT Infusion Department of Oncology in [place], [place] [address] [place] [phone] Loyda Lennon M.D. [address] [place] [address] 12/03/2023 1:45 PM CDT Comprehensive Visit Department of Urology in [place], [place] [address] [place] [phone] Mona Egan P.A.-C. [address] [place] [address] 12/05/2023 1:20 PM CDT Comprehensive Visit Department of Oncology in [place], [place] [address] [place] [phone] Letty Kate M.D. [address] [place] [address] 12/10/2023 3:00 PM CDT Clinical Communication Virtual Review in [place], [place] [address] [place] [address] 12/10/2023 3:30 PM CDT Procedure visit Department of Urology in [place], [place] [address] [place] [phone] Mark Colorado M.D. [facility] [place] [phone] 12/12/2023 3:45 PM CDT Appointment Department of Radiology, [facility], in [place], [place] [address] [place] [address] Na Hernandez M.D., Ph.D. [address] [place] [address] 12/13/2023 6:00 AM CDT Lab Department of Laboratory Medicine and Pathology, [facility], in [place], [place] [address] [place] [phone] Loyda Lennon M.D. [address] [place] [address] 12/13/2023 6:20 AM CDT Lab Department of Infusion Therapy in [place], [place] [address] [place] [phone] Loyda Lennon M.D. [address] [place] [address] 12/13/2023 11:10 AM CDT Office Visit Department of Oncology in [place], [place] [address] [place] [phone] Na Hernandez M.D., Ph.D. [address] [place] [address] 12/13/2023 1:00 PM CDT Infusion Department of Oncology in [place], [place] [address] [place] [phone] Loyda Lennon M.D. [address] [place] [address] 12/20/2023 9:20 AM CDT Lab Department of Infusion Therapy in [place], [place] [address] [place] [phone] Loyda Lennon M.D. [address] [place] [address] 12/20/2023 10:30 AM CDT Infusion Department of Oncology in [place], [place] [address] [place] [phone] Loyda Lennon M.D. [address] [place] [address] 12/25/2023 10:30 AM CDT Appointment Division of Gastroenterology in [place], [place] [address] [place] [phone] Na Hernandez M.D., Ph.D. [address] [place] [address] 12/27/2023 10:15 AM CDT Lab Department of Oncology in [place], [place] [address] [place] [phone] Loyda Lennon M.D. [address] [place] [address] 12/27/2023 10:30 AM CDT Lab Department of Laboratory Medicine and Pathology, [facility], in [place], [place] [address] [place] [phone] Loyda Lennon M.D. [address] [place] [address] 12/27/2023 11:45 AM CDT Infusion Department of Oncology in [place], [place] [address] [place] [phone] Loyda Lennon M.D. [address] [place] [address] 01/03/2024 1:00 PM CDT Clinical Communication Virtual Review in [place], [place] [address] [place] [address] 01/10/2024 8:00 AM CDT Lab Department of Infusion Therapy in [place], [place] [address] [place] [address] Loyda Lennon M.D. [address] [place] [address] 01/10/2024 8:20 AM CDT Lab Department of Laboratory Medicine and Pathology, [facility] in [place], [place] [address] [place] [phone] Loyda Lennon M.D. [address] [place] [address] 01/10/2024 10:30 AM CDT Office Visit Department of Oncology in [place], [place] [address] [place] [phone] Na Hernandez M.D., Ph.D. [address] [place] [address] 01/10/2024 11:45 AM CDT Infusion Department of Oncology in [place], [place] [address] [place] [phone] Loyda Lennon M.D. [address] [place] [address] 01/17/2024 8:45 AM CDT Lab Department of Oncology in [place], [place] [address] [place] [phone] Loyda Lennon M.D. [address] [place] [address] 01/17/2024 10:00 AM CDT Infusion Department of Oncology in [place], [place] [address] [place] [phone] Loyda Lennon M.D. [address] [place] [address] 01/24/2024 8:00 AM CDT Lab Department of Laboratory Medicine and Pathology, [facility], in [place], [place] [address] [place] [address] Loyda Lennon M.D. [address] [place] [address] 01/24/2024 8:15 AM CDT Lab Department of Oncology in [place], [place] [address] [place] [address] Loyda Lennon M.D. [address] [place] [address] 01/24/2024 9:15 AM CDT Infusion Department of Oncology in [place], [place] [address] [place] [phone] Loyda Lennon M.D. [address] [place] [phone] Scheduled Procedures Name Priority Associated Diagnoses Date/Ti [...] documented as of this encounter Care Teams Knitter Hand Relationship Specialty Start Date End Date Mark Colorado M.D. [address] [place] [address] PCP - General Family Medicine 11/09/22 documented as of this encounter
--- OUTSIDE RECORDS SUMMARY | 2023-11-05 22:07 | XMS_ITS | Encounter Summary ---
Author Organization [facility] Address [address] [place] [address] Care Team Providers Care Periodicals Clerk Name Role Phone Mark Colorado M.D. Primary Care Provider [phone] Reason for Visit * Episode Based Medications (Routine) - Authorized Specialty Diagnoses / Procedures Referred By Contac t Referred To Contact Diagnoses Cholangiocarcinoma (HCC) Residential Current Drug Therapy, Chemotherapy Peritoneal Carcinomatosis (HCC) Neutropenia Chemotherapy Induced (HCC) Procedures MT ONDANSETRON HCL INJECTION MT PACLITAXEL INJECTION MT INJECTION, DARINEL ONC Yuko Pennington MPAS, P.A.-C. [address] [place] [address] Rst Onc Cruz [address] [place] [address] Referral ID Status Reason Start Date Expiration Date V isits Requested Visits Authorized [id number] Authorized 03/11/2023 03/31/2024 31 99 Encounter Details Date Type Department Care Team (Latest Contact Info) Description 10/15/2023 10:00 AM CDT Infusion Department of Oncology in [place], [place] [address] [place] [address] Na Hernandez M.D., Ph.D. [address] [place] [phone] Pure Hypercholesterolemia (Primary Dx); Cholangiocarcinoma (HCC); Peritoneal Carcinomatosis (HCC); Neutropenia Chemotherapy Induced (HCC); Associate Director Financial Aid Current Drug Therapy, Chemotherapy Social History Tobacco Use Types Packs/Day Years Used Date Smoking Tobacco: Never Passive Smoke Exposure: Never Smokeless Tobacco: Never Alcohol Use Standard Drinks/Week Comments Not Currently 0 (1 standard drink = 0.6 oz pur e alcohol) [facility] Utilities Answer Date Recorded In the past 12 months has [employer] gas, oil, or water [employer] threatened to shut off services in your [...] your living situation today? I have a [facility] place to live 10/10/2023 Sex and Gender Information Value Date Recorded Sex Assigned at Male 09/10/2022 12:02 PM CDT Gender Identity Male 09/10/2022 12:02 PM CDT Sexual Orientation Straight 09/10/2022 12 :02 PM CDT documented as of this encounter Plan of Treatment Upcoming Encounters Date Type Department Care Team (Latest Contact Info) Description 11/07/2023 3:15 PM CDT Clinical Communication Virtual Review in [place], [place] [address] [place] [address] 11/15/2023 6:40 AM CDT Lab Department of Laboratory Medicine and Pathology, [facility], in [place], [place] [address] [place] [phone] Loyda Lennon M.D. [address] [place] [address] 11/15/2023 8:20 AM CDT Office Visit Department of Oncology in [place], [place] [address] [place] [phone] Manjit Velasquez APRN C.N.P., D.N.P. [address] [place] [phone] 11/15/2023 9:30 AM CDT Comprehensive Visit Department of Palliative Care in [place], [place] [address] [place] [address] Patty Gomez APRN C.N.P., M.S.N. [address] [place] [phone] 11/15/2023 2:15 PM CDT Infusion Department of Oncology in [place], [place] [address] [place] [phone] Loyda Lennon M.D. [address] [place] [address] 11/22/2023 7:30 AM CDT Lab Department of Oncology in [address] [address] Loyda Lennon M.D. [address] [place] [phone] 11/22/2023 8:45 AM CDT Infusion Department of Oncology in [address] [address] Loyda Lennon M.D. [address] [place] [phone] 11/28/2023 3:30 PM CDT Clinical Communication Virtual Review in [address] [address] 11/29/2023 9:00 AM CDT Procedure visit Department of Urology in [place], [place] [address] [place] [address] Mark Colorado M.D. [address] [place] [phone] 11/29/2023 11:20 AM CDT Lab Department of Laboratory Medicine and Pathology, [facility] in [place], [place] [address] [place] [address] Loyda Lennon M.D. [address] [place] [phone] 11/29/2023 11:30 AM CDT Lab Department of Oncology in [place], [place] [address] [place] [address] Loyda Lennon M.D. [address] [place] [phone] 11/29/2023 1:00 PM CDT Infusion Department of Oncology in [place], [place] [address] [place] [phone] Loyda Lennon M.D. [address] [place] [phone] 12/03/2023 1:45 PM CDT Comprehensive Visit Department of Urology in [place], [place] [address] [place] [address] Mona Egan, Shanda [address] [place] [phone] 12/05/2023 1:20 PM CDT Comprehensive Visit Department of Oncology in [place], [place] [address] [place] [phone] Letty Kate M.D. [address] [place] [address] 12/10/2023 3:00 PM CDT Clinical Communication Virtual Review in [place], [place] 200 [place] [address] 12/10/2023 3:30 PM CDT Procedure visit Department of Urology in [place], [place] [address] [place] [phone] Mark Colorado M.D. [address] [place] [address] [place] [address] 12/12/2023 3:45 PM CDT Appointment Department of Radiology, [facility], in [place], [place] [address] [place] [address] Na Hernandez M.D., Ph.D. [address] [place] [phone] 12/13/2023 6:00 AM CDT Lab Department of Laboratory Medicine and Pathology, [facility], in [place], [place] [address] [place] [phone] Loyda Lennon M.D. [address] [place] [phone] 12/13/2023 6:20 AM CDT Lab Department of Infusion Therapy in [place], [place] [address] [place] [phone] Loyda Lennon M.D. [address] [place] [address] 12/13/2023 11:10 AM CDT Office Visit Department of Oncology in [place], [place] [address] [place] [address] Na Hernandez M.D., Ph.D. [address] [place] [phone] 12/13/2023 1:00 PM CDT Infusion Department of Oncology in [place], [place] [address] [place] [address] Loyda Lennon M.D. [address] [place] [address] 12/20/2023 9:20 AM CDT Lab Department of Infusion Therapy in [place], [place] [address] [place] [phone] Loyda Lennon M.D. [address] [place] [phone] 12/20/2023 10:30 AM CDT Infusion Department of Oncology in [place], [place] [address] [place] [address] Loyda Lennon M.D. [address] [place] [phone] 12/25/2023 10:30 AM CDT Appointment Division of Gastroenterology in [place], [place] [address] [place] [phone] Na Hernandez M.D., Ph.D. [address] [place] [phone] 12/27/2023 10:15 AM CDT Lab Department of Oncology in [place], [place] [address] [place] [phone] Loyda Lennon M.D. [address] [place] [address] 12/27/2023 10:30 AM CDT Lab Department of Laboratory Medicine and Pathology, [facility], in [place], [place] [address] [place] [address] Loyda Lennon M.D. [address] [place] [phone] 12/27/2023 11:45 AM CDT Infusion Department of Oncology in [place], [place] [address] [place] [address] Loyda Lennon M.D. [address] [place] [address] 01/03/2024 1:00 PM CDT Clinical Communication Virtual Review in [place], [place] [address] [place] [address] 01/10/2024 8:00 AM CDT Lab Department of Infusion Therapy in [address] [address] Loyda Lennon M.D. [address] [place] [address] 01/10/2024 8:20 AM CDT Lab Department of Laboratory Medicine and Pathology, [facility] in [address] [address] Loyda Lennon M.D. [address] [place] [phone] 01/10/2024 10:30 AM CDT Office Visit Department of Oncology in [address] [address] Na Hernandez M.D., Ph.D. [address] [place] [phone] 01/10/2024 11:45 AM CDT Infusion Department of Oncology in [place], [place] [address] [place] [address] Loyda Lennon M.D. [address] [place] [address] 01/17/2024 8:45 AM CDT Lab Department of Oncology in [place], [place] [address] [place] [address] Loyda Lennon M.D. [address] [place] [address] 01/17/2024 10:00 AM CDT Infusion Department of Oncology in [place], [place] [address] [place] [address] Loyda Lennon M.D. [address] [place] [phone] 01/24/2024 8:00 AM CDT Lab Department of Laboratory Medicine and Pathology, [facility] in [place], [place] [address] [place] [address] Loyda Lennon M.D. [address] [place] [phone] 01/24/2024 8:15 AM CDT Lab Department of Oncology in [place], [place] [address] [place] [address] Loyda Lennon M.D. [address] [place] [phone] 01/24/2024 9:15 AM CDT Infusion Department of Oncology in [address] [address] Loyda Lennon M.D. [address] [place] [phone] Scheduled Procedures Name Priority Associated Diagnoses Date/Ti sc HEPATECTOMY RESECTION LIVER Cholangiocarcinoma (HCC) ULTRASOUND LIVER Cholangiocarcinoma (HCC) RECONSTRUCTION PORTAL VEIN Cholangiocarcinoma (HCC) documented as of this encounter Visit Diagnoses Diagnosis Pure Hypercholesterolemia- Primary Cholangiocarcinoma (HCC) Peritoneal Carcinomatosis (HCC) Neutropenia Chemotherapy Induced (HCC) Residential Current Drug Therapy, Chemotherapy documented in this encounter Administered Medications Inactive Administered Medications - up to 3 most recent administrations Medication Order MAR Action Action Date Dose Rate Site dexAMETHasone injection 10 mg (Decadron) 10 mg, intravenous, Once, On Sat10/15/23 at 1100, For 1 dose Given 10/15/2023 10:52 AM CDT 10 mg diphenhydrAMINE 25 mg in NaCl 0.9% IVPB (BenadryL) 25 mg, intravenous, at 101 mL/hr, Administer over 30 Minutes, Once, On Sat10/15/23 at 1100, For 1 dose New Bag 10/15/2023 10:57 AM CDT 25 mg 101 mL/hr famotidine injection 20 mg (Pepcid) 20 mg, intravenous, Once, On Sat10/15/23 at 1100, For 1 dose Given 10/15/2023 10:49 AM CDT 20 mg heparin flush 500 Units 500 Units, intra-catheter, As needed, line care, Starting on Sat10/15/23 at 1026, When IVAD accessed and not infusing: When no infusion to maintain patency flush every 7 days following NaCL flush. 5 mL (500 units) of Heparin 100 units/mL to each port/lumen. When IVAD not accessed or infusing: When no infusion to maintain patency flush every 28 days following NaCL flush. 5 mL (500 units) of Heparin 100 units/mL to each port/lumen. Given 10/15/2023 12:58 PM CDT 500 Units NaCl 0.9 % bolus 1,000 mL 1,000 mL, intravenous, at 1,000 mL/hr, Administer over 1 Hours, Once, On Sat10/15/23 at 1100, For 1 dose New Bag 10/15/2023 10:57 AM CDT 1,000 mL 1000 mL/hr ondansetron (PF) injection 8 mg (Zofran) 8 mg, intravenous, Once, On Sat10/15/23 at 1100, For 1 dose Given 10/15/2023 10:51 AM CDT 8 mg PACLitaxeL 126 mg in NaCl 0.9% (non-PVC/non-DEHP) 296 mL IVPB (TaxoL) 126 mg (rounded from 128.4 mg = 60 mg/m2 ? 2.14 m2 Treatment Plan BSA from Measured weight), intravenous, at 296 mL/hr, Administer over 1 Hours, Once, On Sat10/15/23 at 1130, For 1 dose, Administer via 0.22 micron in-line filter. New Bag 10/15/2023 11:45 AM CDT 126 mg 296 mL/hr sodium chloride 0.9 % injection 10-20 mL 10-20 mL, intra-catheter, As needed, line care, Starting on Sat10/15/23 at 1026, When IVAD accessed and infusing: Flush prior to and following infusion, between multiple consecutive infusions. 10 mL to each port/lumen. Given 10/15/2023 12:58 PM CDT 10 mL documented in this encounter Additional Health Concerns Infection Onset Date Last Indicated Resolved Time Protective Environment 11/07/2022 11/07/2022 documented as of this encounter Care Teams Periodicals Clerk Relationship Specialty Start Date End Date Mark Colorado M.D. [address] [place], [place] [address] PCP - General Family Medicine 11/09/22 documented as of this encounter
--- OUTSIDE RECORDS SUMMARY | 2023-11-05 22:07 | XMS_ITS | Encounter Summary ---
Author Organization [facility] Address [address] [place] [address] Care Team Providers Care Meal Miller Name Role Phone Mark Colorado M.D. Primary Care Provider [phone] Reason for Visit * Reason Comments Med Refill Ondansetron, hydromo rphone Encounter Details Date Type Department Care Team (Late st Contact Info) Description 10/16/2023 Refill Department of Oncology in [place], [place] [address] [place] [phone] Na Hernandez M.D., Ph.D. [address] [place] [phone] Med Refill (Ondansetron, hydromorphone ) Social History Tobacco Use Types Packs/Day Years Used Date Smoking Tobacco: Never Passive Smoke Exposure: Never Smokeless Tobacco: Never Alcohol Use Standard Drinks/Week Comments Not Currently 0 (1 standard drink = 0.6 oz pur e alcohol) occ [facility] Utilities Answer Date Recorded In the [...] your living situation today? I have a [facility] place to live 10/10/2023 Sex and Gender Information Value Date Recorded Sex Assigned at Male 09/10/2022 12:02 PM CDT Gender Identity Male 09/10/2022 12:02 PM CDT Sexual Orientation Straight 09/10/2022 12 :02 PM CDT documented as of this encounter Plan of Treatment Upcoming Encounters Date Type Department Care Team (Latest Contact Info) Description 11/07/2023 3:15 PM CDT Clinical Communication Virtual Review in [place], [place] [address] [place] [address] 11/15/2023 6:40 AM CDT Lab Department of Laboratory Medicine and Pathology, [facility], in [place], [place] [address] [place] [phone] Loyda Lennon M.D. [address] [place] [phone] 11/15/2023 8:20 AM CDT Office Visit Department of Oncology in [place], [place] [address] [place] [phone] Manjit Velasquez APRN, C.N.P., D.N.P. [address] [place] [phone] 11/15/2023 9:30 AM CDT Comprehensive Visit Department of Palliative Care in [place], [place] [address] [place] [phone] Patty Gomez APRN, C.N.P., M.S.N. [address] [place] [phone] 11/15/2023 2:15 PM CDT Infusion Department of Oncology in [address] [address] Loyda Lennon M.D. [address] [place] [phone] 11/22/2023 7:30 AM CDT Lab Department of Oncology in [address] [address] Loyda Lennon M.D. [address] [place] [phone] 11/22/2023 8:45 AM CDT Infusion Department of Oncology in [address] [phone] Loyda Lennon M.D. [address] [place] [phone] 11/28/2023 3:30 PM CDT Clinical Communication Virtual Review in [address] [address] 11/29/2023 9:00 AM CDT Procedure visit Department of Urology in [address] [address] Mark Colorado M.D. [facility] [place] [address] 11/29/2023 11:20 AM CDT Lab Department of Laboratory Medicine and Pathology, [facility], in [address] [address] Loyda Lennon M.D. [address] [place] [phone] 11/29/2023 11:30 AM CDT Lab Department of Oncology in [place], [place] [address] [place] [phone] Loyda Lennon M.D. [address] [place] [phone] 11/29/2023 1:00 PM CDT Infusion Department of Oncology in [place], [place] [address] [place] [phone] Loyda Lennon M.D. [address] [place] [phone] 12/03/2023 1:45 PM CDT Comprehensive Visit Department of Urology in [place], [place] [address] [place] [phone] Mona Egan P.A.-C. [address] [place] [phone] 12/05/2023 1:20 PM CDT Comprehensive Visit Department of Oncology in [place], [place] [address] [place] [phone] Letty Kate M.D. [address] [place] [phone] 12/10/2023 3:00 PM CDT Clinical Communication Virtual Review in [place], [place] [address] [place] [address] 12/10/2023 3:30 PM CDT Procedure visit Department of Urology in [place], [place] [address] [place] [phone] Mark Colorado M.D. [facility] [place] [address] 12/12/2023 3:45 PM CDT Appointment Department of Radiology, [facility], in [place], [place] [address] [place] [phone] Na Hernandez M.D., Ph.D. [address] [place] [phone] 12/13/2023 6:00 AM CDT Lab Department of Laboratory Medicine and Pathology, [facility], in [place], [place] [address] [place] [phone] Loyda Lennon M.D. [address] [place] [phone] 12/13/2023 6:20 AM CDT Lab Department of Infusion Therapy in [place], [place] [address] [place] [phone] Loyda Lennon M.D. [address] [place] [phone] 12/13/2023 11:10 AM CDT Office Visit Department of Oncology in [place], [place] [address] [place] [phone] Na Hernandez M.D., Ph.D. [address] [place] [phone] 12/13/2023 1:00 PM CDT Infusion Department of Oncology in [place], [place] [address] [place] [phone] Loyda Lennon M.D. [address] [place] [phone] 12/20/2023 9:20 AM CDT Lab Department of Infusion Therapy in [place], [place] [address] [place] [phone] Loyda Lennon M.D. [address] [place] [phone] 12/20/2023 10:30 AM CDT Infusion Department of Oncology in [place], [place] [address] [place] [phone] Loyda Lennon M.D. [address] [place] [phone] 12/25/2023 10:30 AM CDT Appointment Division of Gastroenterology in [place], [place] [address] [place] [phone] Na Hernandez M.D., Ph.D. [address] [place] [phone] 12/27/2023 10:15 AM CDT Lab Department of Oncology in [place], [place] [address] [place] [phone] Loyda Lennon M.D. [address] [place] [phone] 12/27/2023 10:30 AM CDT Lab Department of Laboratory Medicine and Pathology, [facility], in [place], [place] [address] [place] [phone] Loyda Lennon M.D. [address] [place] [phone] 12/27/2023 11:45 AM CDT Infusion Department of Oncology in [address] [phone] Loyda Lennon M.D. [address] [place] [phone] 01/03/2024 1:00 PM CDT Clinical Communication Virtual Review in [place], [place] [address] [place] [address] 01/10/2024 8:00 AM CDT Lab Department of Infusion Therapy in [address] [phone] Loyda Lennon M.D. [address] [place] [phone] 01/10/2024 8:20 AM CDT Lab Department of Laboratory Medicine and Pathology, [facility] in [place], [place] [address] [place] [phone] Loyda Lennon M.D. [address] [place] [phone] 01/10/2024 10:30 AM CDT Office Visit Department of Oncology in [address] [address] Na Hernandez M.D., Ph.D. [address] [place] [phone] 01/10/2024 11:45 AM CDT Infusion Department of Oncology in [place], [place] [address] [place] [phone] Loyda Lennon M.D. [address] [place] [phone] 01/17/2024 8:45 AM CDT Lab Department of Oncology in [address] [address] Loyda Lennon M.D. [address] [place] [phone] 01/17/2024 10:00 AM CDT Infusion Department of Oncology in [address] [address] Loyda Lennon M.D. [address] [place] [phone] 01/24/2024 8:00 AM CDT Lab Department of Laboratory Medicine and Pathology, [facility] in [place], [place] [address] [place] [address] Loyda Lennon M.D. [address] [place] [phone] 01/24/2024 8:15 AM CDT Lab Department of Oncology in [place], [place] [address] [place] [address] Loyda Lennon M.D. [address] [place] [phone] 01/24/2024 9:15 AM CDT Infusion Department of Oncology in [place], [place] [address] [place] [address] Loyda Lennon M.D. [address] [place] [phone] Scheduled Procedures Name Priority Associated Diagnoses Date/Ti [...] documented as of this encounter Care Teams Meal Miller Relationship Specialty Start Date End Date Mark Colorado M.D. [address] [place] [address] PCP - General Family Medicine 11/09/22 documented as of this encounter
--- OUTSIDE RECORDS SUMMARY | 2023-11-05 22:07 | XMS_ITS | Encounter Summary ---
Author Organization [facility] Address [address] [place] [address] Care Team Providers Care Junk Removal Specialist Name Role Phone Mark Colorado M.D. Primary Care Provider [phone] Encounter Details Date Type Department Care Team (Latest Contact Info) Description 10/15/2023 Orders Only Department of Oncology in [place], [place] [address] [place] [address] Omero Lopes Cholangiocarcinoma (HCC) (Primary Dx); Caster Operator Current Drug Therapy, Chemotherapy; Peritoneal Carcinomatosis (HCC); Neutropenia Chemotherapy Induced (HCC) Social History Tobacco Use Types Packs/Day Years Used Date Smoking Tobacco: Never Passive Smoke Exposure: Never Smokeless Tobacco: Never Alcohol Use Standard Drinks/Week Comments Not Currently 0 (1 standard drink = 0.6 oz pur e alcohol) [facility] Utilities Answer Date Recorded In the past [...] living situation today? I have a [facility] place to live 10/22/2023 Sex and Gender Information Value Date Recorded Sex Assigned at Male 09/10/2022 12:02 PM CDT Gender Identity Male 09/10/2022 12:02 PM CDT Sexual Orientation Straight 09/10/2022 12 :02 PM CDT documented as of this encounter Plan of Treatment Upcoming Encounters Date Type Department Care Team (Latest Contact Info) Description 11/07/2023 3:15 PM CDT Clinical Communication Virtual Review in [address] [address] 11/15/2023 6:40 AM CDT Lab Department of Laboratory Medicine and Pathology, [facility], in [address] [address] Loyda Lennon M.D. [address] [place] [phone] 11/15/2023 8:20 AM CDT Office Visit Department of Oncology in [address] [address] Manjit Velasquez APRN, C.N.P., D.N.P. [address] [place] [phone] 11/15/2023 9:30 AM CDT Comprehensive Visit Department of Palliative Care in [address] [address] Patty Gomez APRN, C.N.P., M.S.N. [address] [place] [phone] 11/15/2023 2:15 PM CDT Infusion Department of Oncology in [address] [place] [address] Loyda Lennon M.D. [address] [place] [phone] 11/22/2023 7:30 AM CDT Lab Department of Oncology in [place], [place] [address] [place] [phone] Loyda Lennon M.D. [address] [place] [phone] 11/22/2023 8:45 AM CDT Infusion Department of Oncology in [place], [place] [address] [place] [phone] Loyda Lennon M.D. [address] [place] [phone] 11/28/2023 3:30 PM CDT Clinical Communication Virtual Review in [place], [place] [address] [place] [address] 11/29/2023 9:00 AM CDT Procedure visit Department of Urology in [place], [place] [address] [place] [phone] Mark Colorado M.D. [address] [place] [address] 11/29/2023 11:20 AM CDT Lab Department of Laboratory Medicine and Pathology, [facility], in [place], [place] [address] [place] [phone] Loyda Lennon M.D. [address] [place] [phone] 11/29/2023 11:30 AM CDT Lab Department of Oncology in [place], [place] [address] [place] [phone] Loyda Lennon M.D. [address] [place] [phone] 11/29/2023 1:00 PM CDT Infusion Department of Oncology in [place], [place] [address] [place] [phone] Loyda Lennon M.D. [address] [place] [phone] 12/03/2023 1:45 PM CDT Comprehensive Visit Department of Urology in [place], [place] [address] [place] [phone] Mona Egan P.A.-C. [address] [place] [phone] 12/05/2023 1:20 PM CDT Comprehensive Visit Department of Oncology in [place], [place] [address] [place] [phone] Letty Kate M.D. [address] [place] [phone] 12/10/2023 3:00 PM CDT Clinical Communication Virtual Review in [place], [place] [address] [place] [address] 12/10/2023 3:30 PM CDT Procedure visit Department of Urology in [place], [place] [address] [place] [phone] Mark Colorado M.D. [address] [place] [address] 12/12/2023 3:45 PM CDT Appointment Department of Radiology, [facility], in [address] [address] Na Hernandez M.D., Ph.D. [address] [place] [phone] 12/13/2023 6:00 AM CDT Lab Department of Laboratory Medicine and Pathology, [facility], in [place], [place] [address] [place] [phone] Loyda Lennon M.D. [address] [place] [phone] 12/13/2023 6:20 AM CDT Lab Department of Infusion Therapy in [place], [place] [address] [place] [phone] Loyda Lennon M.D. [address] [place] [phone] 12/13/2023 11:10 AM CDT Office Visit Department of Oncology in [place], [place] [address] [place] [phone] Na Hernandez M.D., Ph.D. [address] [place] [phone] 12/13/2023 1:00 PM CDT Infusion Department of Oncology in [place], [place] [address] [place] [phone] Loyda Lennon M.D. [address] [place] [phone] 12/20/2023 9:20 AM CDT Lab Department of Infusion Therapy in [place], [place] [address] [place] [phone] Loyda Lennon M.D. [address] [place] [phone] 12/20/2023 10:30 AM CDT Infusion Department of Oncology in [place], [place] [address] [place] [phone] Loyda Lennon M.D. [address] [place] [phone] 12/25/2023 10:30 AM CDT Appointment Division of Gastroenterology in [place], [place] [address] [place] [phone] Na Hernandez M.D., Ph.D. [address] [place] [phone] 12/27/2023 10:15 AM CDT Lab Department of Oncology in [place], [place] [address] [place] [phone] Loyda Lennon M.D. [address] [place] [phone] 12/27/2023 10:30 AM CDT Lab Department of Laboratory Medicine and Pathology, [facility] in [place], [place] [address] [place] [phone] Loyda Lennon M.D. [address] [place] [phone] 12/27/2023 11:45 AM CDT Infusion Department of Oncology in [place], [place] [address] [place] [phone] Loyda Lennon M.D. [address] [place] [phone] 01/03/2024 1:00 PM CDT Clinical Communication Virtual Review in [place], [place] [address] [place] [address] 01/10/2024 8:00 AM CDT Lab Department of Infusion Therapy in [address] [address] Loyda Lennon M.D. [address] [place] [phone] 01/10/2024 8:20 AM CDT Lab Department of Laboratory Medicine and Pathology, [facility] in [place], [place] [address] [place] [phone] Loyda Lennon M.D. [address] [place] [phone] 01/10/2024 10:30 AM CDT Office Visit Department of Oncology in [place], [place] [address] [place] [phone] Na Hernandez M.D., Ph.D. [address] [place] [phone] 01/10/2024 11:45 AM CDT Infusion Department of Oncology in [place], [place] [address] [place] [phone] Loyda Lennon M.D. [address] [place] [phone] 01/17/2024 8:45 AM CDT Lab Department of Oncology in [place], [place] [address] [place] [phone] Loyda Lennon M.D. [address] [place] [phone] 01/17/2024 10:00 AM CDT Infusion Department of Oncology in [place], [place] [address] [place] [phone] Loyda Lennon M.D. [address] [place] [phone] 01/24/2024 8:00 AM CDT Lab Department of Laboratory Medicine and Pathology, [facility], in [place], [place] [address] [place] [address] Loyda Lennon M.D. [address] [place] [address] 01/24/2024 8:15 AM CDT Lab Department of Oncology in [place], [place] [address] [place] [address] Loyda Lennon M.D. [address] [place] [phone] 01/24/2024 9:15 AM CDT Infusion Department of Oncology in [place], [place] [address] [place] [address] Loyda Lennon M.D. [address] [place] [phone] Scheduled Procedures Name Priority Associated Diagnoses Date/Ti me HEPATECTOMY RESECTION LIVER Cholangiocarcinoma (HCC) ULTRASOUND LIVER Cholangiocarcinoma (HCC) RECONSTRUCTION PORTAL VEIN Cholangiocarcinoma (HCC) documented as of this encounter Visit Diagnoses Diagnosis Cholangiocarcinoma (HCC)- Primary Half-Way Current Drug Therapy, Chemotherapy Peritoneal Carcinomatosis (HCC) Neutropenia Chemotherapy Induced (HCC) documented in this encounter Additional Health Concerns Infection Onset Date Last Indicated Resolved Time Protective Environment 11/07/2022 11/07/2022 COVID19 Pending 10/22/2023 10/22/2023 10/22/2023 4 :18 AM CDT documented as of this encounter Care Teams Junk Removal Specialist Relationship Specialty Start Date End Date Mark Colorado M.D. [address] [place] [address] PCP - General Family Medicine 11/09/22 documented as of this encounter
--- OUTSIDE RECORDS SUMMARY | 2023-11-05 22:07 | XMS_ITS | Encounter Summary ---
Author Organization [facility] Address [address] [place] [address] Care Team Providers Care Weaving Supervisor Name Role Phone Mark Colorado M.D. Primary Care Provider [phone] Encounter Details Date Type Department Care Team (Late st Contact Info) Description 10/16/2023 10:15 AM CDT Telemedicine Department of Family Medicine, [facility], in [place], [place] [address] [place] [address] Mark Colorado M.D. [address] [place] [address] Cholangiocarcinoma (HCC) (Primary Dx); Hesitancy Urinary; Weakness General Discharge Disposition: Home or Self Care Social History Tobacco Use Types Packs/Day Years Used Date Smoking Tobacco: Never Passive Smoke Exposure: Never Smokeless Tobacco: Never Alcohol Use Standard Drinks/Week Comments Not Currently 0 (1 standard drink = 0.6 oz pur e alcohol) occ [facility] Utilities Answer Date Recorded In [...] your living situation today? I have a [facility] place to live 10/10/2023 Sex and Gender Information Value Date Recorded Sex Assigned at Male 09/10/2022 12:02 PM CDT Gender Identity Male 09/10/2022 12:02 PM CDT Sexual Orientation Straight 09/10/2022 12 :02 PM CDT documented as of this encounter Progress Notes * Mark Colorado M.D. - 10/16/2023 10:15 AM CDT Visit conducted via real-time audio/video technology by Mark Colorado M.D. in [facility] to the patient in their home. SERGE Kang is a 68 y.o. male who presents for evaluation of urinary hesitancy. Patient was started on Flomax awhile back because he was having nocturia. Patient was having recurrent episodes where he feltlike he had the P and he could not seem to go very much. Since that time patient has been on different chemotherapy with drug regiment that is investigational and he is actually taking himself off Flomax and he thinks things are better. He has really not having any retention. He is got free flow feels like he empties fine. Patient is still is struggling with some of the issues around his cancer. He is trying to get to a better pain control spot his blood pressures been difficult to control he is already enrolled in a investigational study The following systems were negative: Respiratory, Cardiovascular, Genitourinary History review: I reviewed and updated problem list, medication list, and allergies with the patient. OBJECTIVE VITAL SIGNS There were no vitals filed for this visit. PHYSICAL EXAMINATION Nursing note reviewed. Constitutional Appearance: Normal appearance. He is not ill-appearing. Neurological Mental Status: He is alert. Psychiatric Mood and Affect: Mood is depressed. Affect is tearful. ASSESSMENT / PLAN #1 Hesitancy Urinary We had a long talk about his hesitancy. It seems to improve. After further discussion I think we both agree that maybe his nocturia was never a symptom of BPH but more likely bladder irritation from his chemotherapeutic drugs. Now that he has been switched and he is come off his Flomax he seems to be doing well with no flow issues 1. Reassurance given 2. Continue discontinue Flomax #2 Cholangiocarcinoma (HCC) Long discussion about his current chemo regimen. He has on an investigational clinical study. CT scans have been stable patient of courses trouble with maintaining pain control blood pressures been erratic he certainly has emotional and struggling a little bit with his 's concerns as well all-in-all seems to be well taken care of in doing okay #3 Weakness General Patient does have some generalized weakness but I think that is secondary to his chemotherapy regiment 30 minutes was spent reviewing the medical record, interviewing and examining the patient, and formulating the care plan. Mark Colorado M.D. documented in this encounter Plan of Treatment Upcoming Encounters Date Type Department Care Team (Latest Contact Info) Description 11/07/2023 3:15 PM CDT Clinical Communication Virtual Review in [address] [address] 11/15/2023 6:40 AM CDT Lab Department of Laboratory Medicine and Pathology, [facility], in [address] [address] Loyda Lennon M.D. [address] [place] [phone] 11/15/2023 8:20 AM CDT Office Visit Department of Oncology in [address] [address] Manjit Velasquez, KAYLEE, C.N.P., D.N.P. [address] [place] [phone] 11/15/2023 9:30 AM CDT Comprehensive Visit Department of Palliative Care in [place], [place] [address] [place] [phone] Patty Gomez APRN, CHoldenNHoldenP., M.S.N. [address] [place] [phone] 11/15/2023 2:15 PM CDT Infusion Department of Oncology in [place], [place] [address] [place] [phone] Loyda Lennon M.D. [address] [place] [phone] 11/22/2023 7:30 AM CDT Lab Department of Oncology in [address] [address] Loyda Lennon M.D. [address] [place] [phone] 11/22/2023 8:45 AM CDT Infusion Department of Oncology in [address] [address] Loyda Lennon M.D. [address] [place] [address] 11/28/2023 3:30 PM CDT Clinical Communication Virtual Review in [place], [place] [address] [place] [address] 11/29/2023 9:00 AM CDT Procedure visit Department of Urology in [address] [address] Mark Colorado M.D. [facility] [place] [address] 11/29/2023 11:20 AM CDT Lab Department of Laboratory Medicine and Pathology, [facility], in [place], [place] [address] [place] [phone] Loyda Lennon M.D. [address] [place] [address] 11/29/2023 11:30 AM CDT Lab Department of Oncology in [place], [place] [address] [place] [phone] Loyda Lennon M.D. [address] [place] [address] 11/29/2023 1:00 PM CDT Infusion Department of Oncology in [place], [place] [address] [place] [phone] Loyda Lennon M.D. [address] [place] [phone] 12/03/2023 1:45 PM CDT Comprehensive Visit Department of Urology in [address] [address] Mona Egan, PHoldenA.-Sara [address] [place] [phone] 12/05/2023 1:20 PM CDT Comprehensive Visit Department of Oncology in [place], [place] [address] [place] [phone] Letty Kate M.D. [address] [place] [address] 12/10/2023 3:00 PM CDT Clinical Communication Virtual Review in [place], [place] [address] [place] [address] 12/10/2023 3:30 PM CDT Procedure visit Department of Urology in [place], [place] [address] [place] [phone] Mark Colorado M.D. [address] [place] [address] 12/12/2023 3:45 PM CDT Appointment Department of Radiology, [facility], in [place], [place] [address] [place] [phone] Na Hernandez M.D., Ph.D. [address] [place] [phone] 12/13/2023 6:00 AM CDT Lab Department of Laboratory Medicine and Pathology, [facility] in [place], [place] [address] [place] [phone] Loyda Lennon M.D. [address] [place] [phone] 12/13/2023 6:20 AM CDT Lab Department of Infusion Therapy in [place], [place] [address] [place] [phone] Loyda Lennon M.D. [address] [place] [phone] 12/13/2023 11:10 AM CDT Office Visit Department of Oncology in [address] [address] Na Hernandez M.D., Ph.D. [address] [place] [phone] 12/13/2023 1:00 PM CDT Infusion Department of Oncology in [place], [place] [address] [place] [phone] Loyda Lennon M.D. [address] [place] [address] 12/20/2023 9:20 AM CDT Lab Department of Infusion Therapy in [place], [place] [address] [place] [phone] Loyda Lennon M.D. [address] [place] [phone] 12/20/2023 10:30 AM CDT Infusion Department of Oncology in [place], [place] [address] [place] [phone] Loyda Lennon M.D. [address] [place] [phone] 12/25/2023 10:30 AM CDT Appointment Division of Gastroenterology in [place], [place] [address] [place] [phone] Na Hernandez M.D., Ph.D. [address] [place] [phone] 12/27/2023 10:15 AM CDT Lab Department of Oncology in [place], [place] [address] [place] [phone] Loyda Lennon M.D. [address] [place] [phone] 12/27/2023 10:30 AM CDT Lab Department of Laboratory Medicine and Pathology, [facility], in [place], [place] [address] [place] [phone] Loyda Lennon M.D. [address] [place] [phone] 12/27/2023 11:45 AM CDT Infusion Department of Oncology in [place], [place] [address] [place] [phone] Loyda Lennon M.D. [address] [place] [address] 01/03/2024 1:00 PM CDT Clinical Communication Virtual Review in [place], [place] [address] [place] [address] 01/10/2024 8:00 AM CDT Lab Department of Infusion Therapy in [address] [address] Loyda Lennon M.D. [address] [place] [phone] 01/10/2024 8:20 AM CDT Lab Department of Laboratory Medicine and Pathology, [facility] in [place], [place] [address] [place] [phone] Loyda Lennon M.D. [address] [place] [address] 01/10/2024 10:30 AM CDT Office Visit Department of Oncology in [address] [address] Na Hernandez M.D., Ph.D. [address] [place] [phone] 01/10/2024 11:45 AM CDT Infusion Department of Oncology in [address] [address] Loyda Lennon M.D. [address] [place] [phone] 01/17/2024 8:45 AM CDT Lab Department of Oncology in [address] [address] Loyda Lennon M.D. [address] [place] [phone] 01/17/2024 10:00 AM CDT Infusion Department of Oncology in [place], [place] [address] [place] [phone] Loyda Lennon M.D. [address] [place] [address] 01/24/2024 8:00 AM CDT Lab Department of Laboratory Medicine and Pathology, [facility], in [place], [place] [address] [place] [address] Loyda Lennon M.D. [address] [place] [address] 01/24/2024 8:15 AM CDT Lab Department of Oncology in [place], [place] [address] [place] [address] Loyda Lennon M.D. [address] [place] [phone] 01/24/2024 9:15 AM CDT Infusion Department of Oncology in [place], [place] [address] [place] [address] Loyda Lennon M.D. [address] [place] [phone] Scheduled Procedures Name Priority Associated Diagnoses Date/Ti me HEPATECTOMY RESECTION LIVER Cholangiocarcinoma (HCC) ULTRASOUND LIVER Cholangiocarcinoma (HCC) RECONSTRUCTION PORTAL VEIN Cholangiocarcinoma (HCC) documented as of this encounter Visit Diagnoses Diagnosis Cholangiocarcinoma (HCC)- Primary Hesitancy Urinary Weakness General documented in this encounter Additional Health Concerns Infection Onset Date Last Indicated Resolved Time Protective Environment 11/07/2022 11/07/2022 documented as of this encounter Care Teams Weaving Supervisor Relationship Specialty Start Date End Date Mark Colorado M.D. [address] [place] [address] PCP - General Family Medicine 11/09/22 documented as of this encounter
--- OUTSIDE RECORDS SUMMARY | 2023-11-05 22:07 | XMS_ITS | Encounter Summary ---
Author Organization [facility] Address [address] [place] [address] Care Team Providers Care Rate Setter Name Role Phone Mark Colorado M.D. 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 Utilities Answer Date Recorded In the [...] your living situation today? I have a [facility] place to live 10/22/2023 Sex and Gender Information Value Date Recorded Sex Assigned at Male 09/10/2022 12:02 PM CDT Gender Identity Male 09/10/2022 12:02 PM CDT Sexual Orientation Straight 09/10/2022 12 :02 PM CDT documented as of this encounter Plan of Treatment Upcoming Encounters Date Type Department Care Team (Latest Contact Info) Description 11/07/2023 3:15 PM CDT Clinical Communication Virtual Review in [address] [address] 11/15/2023 6:40 AM CDT Lab Department of Laboratory Medicine and Pathology, [facility], in [address] [address] Loyda Lennon M.D. [address] [place] [phone] 11/15/2023 8:20 AM CDT Office Visit Department of Oncology in [address] [address] Manjit Velasquez APRN, C.N.P., D.N.P. [address] [place] [phone] 11/15/2023 9:30 AM CDT Comprehensive Visit Department of Palliative Care in [address] [address] Patty Gomez APRN, C.N.P., M.S.N. [address] [place] [phone] 11/15/2023 2:15 PM CDT Infusion Department of Oncology in [address] [place] [address] Loyda Lennon M.D. [address] [place] [address] 11/22/2023 7:30 AM CDT Lab Department of Oncology in [place], [place] [address] [place] [address] Loyda Lennon M.D. [address] [place] [phone] 11/22/2023 8:45 AM CDT Infusion Department of Oncology in [place], [place] [address] [place] [address] Loyda Lennon M.D. [address] [place] [address] 11/28/2023 3:30 PM CDT Clinical Communication Virtual Review in [place], [place] [address] [place] [address] 11/29/2023 9:00 AM CDT Procedure visit Department of Urology in [place], [place] [address] [place] [phone] Mark Colorado M.D. [address] [place] [address] 11/29/2023 11:20 AM CDT Lab Department of Laboratory Medicine and Pathology, [facility], in [place], [place] [address] [place] [phone] Loyda Lennon M.D. [address] [place] [phone] 11/29/2023 11:30 AM CDT Lab Department of Oncology in [place], [place] [address] [place] [address] Loyda Lennon M.D. [address] [place] [address] 11/29/2023 1:00 PM CDT Infusion Department of Oncology in [place], [place] [address] [place] [address] Loyda Lennon M.D. [address] [place] [address] 12/03/2023 1:45 PM CDT Comprehensive Visit Department of Urology in [place], [place] [address] [place] [address] Mona Egan P.A.-C. [address] [place] [phone] 12/05/2023 1:20 PM CDT Comprehensive Visit Department of Oncology in [place], [place] [address] [place] [address] Letty Kate M.D. [address] [place] [address] 12/10/2023 3:00 PM CDT Clinical Communication Virtual Review in [place], [place] [address] [place] [address] 12/10/2023 3:30 PM CDT Procedure visit Department of Urology in [place], [place] [address] [place] [address] Mark Colorado M.D. [address] [place] [address] 12/12/2023 3:45 PM CDT Appointment Department of Radiology, [facility], in [address] [address] Na Hernandez M.D., Ph.D. [address] [place] [address] 12/13/2023 6:00 AM CDT Lab Department of Laboratory Medicine and Pathology, [facility], in [place], [place] [address] [place] [address] Loyda Lennon M.D. [address] [place] [address] 12/13/2023 6:20 AM CDT Lab Department of Infusion Therapy in [place], [place] [address] [place] [address] Loyda Lennon M.D. [address] [place] [address] 12/13/2023 11:10 AM CDT Office Visit Department of Oncology in [place], [place] [address] [place] [address] Na Hernandez M.D., Ph.D. [address] [place] [address] 12/13/2023 1:00 PM CDT Infusion Department of Oncology in [place], [place] [address] [place] [address] Loyda Lennon M.D. [address] [place] [address] 12/20/2023 9:20 AM CDT Lab Department of Infusion Therapy in [place], [place] [address] [place] [address] Loyda Lennon M.D. [address] [place] [address] 12/20/2023 10:30 AM CDT Infusion Department of Oncology in [place], [place] [address] [place] [phone] Loyda Lennon M.D. [address] [place] [address] 12/25/2023 10:30 AM CDT Appointment Division of Gastroenterology in [place], [place] [address] [place] [address] Na Hernandez M.D., Ph.D. [address] [place] [phone] 12/27/2023 10:15 AM CDT Lab Department of Oncology in [place], [place] [address] [place] [address] Loyda Lennon M.D. [address] [place] [phone] 12/27/2023 10:30 AM CDT Lab Department of Laboratory Medicine and Pathology, [facility] in [place], [place] [address] [place] [address] Lyoda Lennon M.D. [address] [place] [address] 12/27/2023 11:45 AM CDT Infusion Department of Oncology in [place], [place] [address] [place] [address] Loyda Lennon M.D. [address] [place] [address] 01/03/2024 1:00 PM CDT Clinical Communication Virtual Review in [place], [place] [address] [place] [address] 01/10/2024 8:00 AM CDT Lab Department of Infusion Therapy in [address] [address] Loyda Lennon M.D. [address] [place] [address] 01/10/2024 8:20 AM CDT Lab Department of Laboratory Medicine and Pathology, [facility] in [place], [place] [address] [place] [phone] Loyda Lennon M.D. [address] [place] [address] 01/10/2024 10:30 AM CDT Office Visit Department of Oncology in [place], [place] [address] [place] [address] Na Hernandez M.D., Ph.D. [address] [place] [phone] 01/10/2024 11:45 AM CDT Infusion Department of Oncology in [place], [place] [address] [place] [address] Loyda Lennon M.D. [address] [place] [address] 01/17/2024 8:45 AM CDT Lab Department of Oncology in [place], [place] [address] [place] [address] Loyda Lennon M.D. [address] [place] [address] 01/17/2024 10:00 AM CDT Infusion Department of Oncology in [place], [place] [address] [place] [address] Loyda Lennon M.D. [address] [place] [address] 01/24/2024 8:00 AM CDT Lab Department of Laboratory Medicine and Pathology, [facility], in [place], [place] [address] [place] [address] Loyda Lennon M.D. [address] [place] [address] 01/24/2024 8:15 AM CDT Lab Department of Oncology in [place], [place] [address] [place] [address] Loyda Lennon M.D. [address] [place] [phone] 01/24/2024 9:15 AM CDT Infusion Department of Oncology in [place], [place] [address] [place] [address] Loyda Lennon M.D. [address] [place] [phone] Scheduled Procedures Name Priority Associated Diagnoses Date/Ti me HEPATECTOMY RESECTION LIVER Cholangiocarcinoma (HCC) ULTRASOUND LIVER Cholangiocarcinoma (HCC) RECONSTRUCTION PORTAL VEIN Cholangiocarcinoma (HCC) documented as of this encounter Visit Diagnoses Diagnosis Cholangiocarcinoma (HCC)- Primary Prison Current Drug Therapy, Chemotherapy Peritoneal Carcinomatosis (HCC) Neutropenia Chemotherapy Induced (HCC) documented in this encounter Additional Health Concerns Infection Onset Date Last Indicated Resolved Time Protective Environment 11/07/2022 11/07/2022 COVID19 Pending 10/22/2023 10/22/2023 10/22/2023 4 :18 AM CDT documented as of this encounter Care Teams Rate Setter Relationship Specialty Start Date End Date Mark Colorado M.D. [address] [place] [address] PCP - General Family Medicine 11/09/22 documented as of this encounter
--- OUTSIDE RECORDS SUMMARY | 2023-11-05 22:07 | XMS_ITS | Encounter Summary ---
Author Organization [facility] Address [address] [place] [address] Care Team Providers Care Supervisor Building Maintenance Name Role Phone Mark Colorado M.D. Primary Care Provider [phone] Reason for Visit * Reason Comments Med Refill Encounter Details Date Type Department Care Team (Late st Contact Info) Description 10/15/2023 Refill Department of Oncology in [place], [place] 200 [place] [phone] Na Hernandez M.D., Ph.D. 200 [place] [phone] Med Refill Social History Tobacco Use Types Packs/Day Years Used Date Smoking Tobacco: Never Passive Smoke Exposure: Never Smokeless Tobacco: Never Alcohol Use Standard Drinks/Week Comments Not Currently 0 (1 standard drink = 0.6 oz pur e alcohol) occ [facility] Utilities Answer Date Recorded In [...] [facility] 10/10/2023 Sex and Gender Information Value Date Recorded Sex Assigned at Male 09/10/2022 12:02 PM CDT Gender Identity Male 09/10/2022 12:02 PM CDT Sexual Orientation Straight 09/10/2022 12 :02 PM CDT documented as of this encounter Plan of Treatment Upcoming Encounters Date Type Department Care Team (Latest Contact Info) Description 11/07/2023 3:15 PM CDT Clinical Communication Virtual Review in [place], [place] 200 [place] [address] 11/15/2023 6:40 AM CDT Lab Department of Laboratory Medicine and Pathology, [facility] in [place], [place] [address] [place] [phone] Loyda Lennon M.D. [address] [place] [phone] 11/15/2023 8:20 AM CDT Office Visit Department of Oncology in [place], [place] [address] [place] [phone] Manjit Velasquez APRN, C.N.P., D.N.P. [address] [place] [phone] 11/15/2023 9:30 AM CDT Comprehensive Visit Department of Palliative Care in [place], [place] [address] [place] [phone] Patty Gomez APRN, C.N.P., M.S.N. [address] [place] [phone] 11/15/2023 2:15 PM CDT Infusion Department of Oncology in [place], [place] [address] [place] [phone] Loyda Lennon M.D. [address] [place] [phone] 11/22/2023 7:30 AM CDT Lab Department of Oncology in [place], [place] [address] [place] [phone] Loyda Lennon M.D. [address] [place] [phone] 11/22/2023 8:45 AM CDT Infusion Department of Oncology in [address] [phone] Loyda Lennon M.D. [address] [place] [phone] 11/28/2023 3:30 PM CDT Clinical Communication Virtual Review in [place], [place] 200 [place] [address] 11/29/2023 9:00 AM CDT Procedure visit Department of Urology in [address] [address] Mark Colorado M.D. [address] [place] [phone] 11/29/2023 11:20 AM CDT Lab Department of Laboratory Medicine and Pathology, [facility], in [place], [place] [address] [place] [phone] Loyda Lennon M.D. [address] [place] [phone] 11/29/2023 11:30 AM CDT Lab Department of Oncology in [place], [place] [address] [place] [phone] Loyda Lennon M.D. [address] [place] [phone] 11/29/2023 1:00 PM CDT Infusion Department of Oncology in [place], [place] [address] [place] [phone] Loyda Lennon M.D. [address] [place] [phone] 12/03/2023 1:45 PM CDT Comprehensive Visit Department of Urology in [place], [place] [address] [place] [phone] Mona Egan P.A.-C. [address] [place] [phone] 12/05/2023 1:20 PM CDT Comprehensive Visit Department of Oncology in [place], [place] [address] [place] [phone] Letty Kate M.D. [address] [place] [phone] 12/10/2023 3:00 PM CDT Clinical Communication Virtual Review in [place], [place] 200 [place] [address] 12/10/2023 3:30 PM CDT Procedure visit Department of Urology in [place], [place] [address] [place] [phone] Mark Colorado M.D. [address] [place] [phone] 12/12/2023 3:45 PM CDT Appointment Department of Radiology, [facility], in [place], [place] [address] [place] [phone] Na Hernandez M.D., Ph.D. [address] [place] [phone] 12/13/2023 6:00 AM CDT Lab Department of Laboratory Medicine and Pathology, [facility], in [place], [place] [address] [place] [phone] Loyda Lennon M.D. [address] [place] [phone] 12/13/2023 6:20 AM CDT Lab Department of Infusion Therapy in [place], [place] [address] [place] [phone] Loyda Lennon M.D. [address] [place] [phone] 12/13/2023 11:10 AM CDT Office Visit Department of Oncology in [place], [place] [address] [place] [phone] Na Hernandez M.D., Ph.D. [address] [place] [phone] 12/13/2023 1:00 PM CDT Infusion Department of Oncology in [address] [address] Loyda Lennon M.D. [address] [place] [phone] 12/20/2023 9:20 AM CDT Lab Department of Infusion Therapy in [place], [place] [address] [place] [phone] Loyda Lennon M.D. [address] [place] [phone] 12/20/2023 10:30 AM CDT Infusion Department of Oncology in [place], [place] [address] [place] [phone] Loyda Lennon M.D. [address] [place] [phone] 12/25/2023 10:30 AM CDT Appointment Division of Gastroenterology in [place], [place] [address] [place] [phone] Na Hernandez M.D., Ph.D. [address] [place] [phone] 12/27/2023 10:15 AM CDT Lab Department of Oncology in [place], [place] [address] [place] [phone] Loyda Lennon M.D. [address] [place] [phone] 12/27/2023 10:30 AM CDT Lab Department of Laboratory Medicine and Pathology, [facility] in [place], [place] [address] [place] [phone] Loyda Lennon M.D. [address] [place] [phone] 12/27/2023 11:45 AM CDT Infusion Department of Oncology in [address] [address] Loyda Lennon M.D. [address] [place] [phone] 01/03/2024 1:00 PM CDT Clinical Communication Virtual Review in [place], [place] 200 [place] [address] 01/10/2024 8:00 AM CDT Lab Department of Infusion Therapy in [address] [address] Loyda Lennon M.D. [address] [place] [phone] 01/10/2024 8:20 AM CDT Lab Department of Laboratory Medicine and Pathology, [facility] in [place], [place] [address] [place] [phone] Loyda Lennon M.D. [address] [place] [phone] 01/10/2024 10:30 AM CDT Office Visit Department of Oncology in [place], [place] [address] [place] [phone] Na Hernandez M.D., Ph.D. [address] [place] [phone] 01/10/2024 11:45 AM CDT Infusion Department of Oncology in [place], [place] [address] [place] [phone] Loyda Lennon M.D. [address] [place] [phone] 01/17/2024 8:45 AM CDT Lab Department of Oncology in [place], [place] [address] [place] [phone] Loyda eLnnon M.D. [address] [place] [phone] 01/17/2024 10:00 AM CDT Infusion Department of Oncology in [place], [place] [address] [place] [phone] Loyda Lennon M.D. [address] [place] [phone] 01/24/2024 8:00 AM CDT Lab Department of Laboratory Medicine and Pathology, [facility], in [place], [place] [address] [place] [phone] Loyda Lennon M.D. [address] [place] [phone] 01/24/2024 8:15 AM CDT Lab Department of Oncology in [place], [place] [address] [place] [address] Loyda Lennon M.D. [address] [place] [phone] 01/24/2024 9:15 AM CDT Infusion Department of Oncology in [place], [place] [address] [place] [address] Loyda Lennon M.D. [address] [place] [phone] Scheduled Procedures Name Priority Associated Diagnoses Date/Ti me HEPATECTOMY RESECTION LIVER Cholangiocarcinoma (HCC) ULTRASOUND LIVER Cholangiocarcinoma (HCC) RECONSTRUCTION PORTAL VEIN Cholangiocarcinoma (HCC) documented as of this encounter Visit Diagnoses Not on filedocumented in this encounter Additional Health Concerns Infection Onset Date Last Indicated Resolved Time Protective Environment 11/07/2022 11/07/2022 documented as of this encounter Care Teams Supervisor Building Maintenance Relationship Specialty Start Date End Date Mark Colorado M.D. [address] [place] [address] PCP - General Family Medicine 11/09/22 documented as of this encounter
--- OUTSIDE RECORDS SUMMARY | 2023-11-05 22:07 | XMS_ITS | Encounter Summary ---
Author Organization [facility] Address [address] [place] [address] Care Team Providers Care Clinical Social Worker Name Role Phone Mark Colorado M.D. Primary Care Provider [phone] Reason for Visit * Episode Based Medications (Routine) - Authorized Specialty Diagnoses / Procedures Referred By Contac t Referred To Contact Diagnoses Cholangiocarcinoma (HCC) Usp Current Drug Therapy, Chemotherapy Peritoneal Carcinomatosis (HCC) Neutropenia Chemotherapy Induced (HCC) Procedures WV ONDANSETRON HCL INJECTION WV PACLITAXEL INJECTION WV INJECTION, DARINEL ONC Yuko Pennington MPAS, P.A.-C. [address] [place] [address] Rst Onc Cruz [address] [place] [address] Referral ID Status Reason Start Date Expiration Date V isits Requested Visits Authorized [id number] Authorized 03/11/2023 03/31/2024 31 99 Encounter Details Date Type Department Care Team (Latest Contact Info) Description 10/08/2023 12:00 PM CDT Infusion Department of Oncology in [place], [place] [address] [place] [address] Na Hernandez M.D., Ph.D. [address] [place] [phone] Real Estate Manager Current Drug Therapy, Chemotherapy (Primary Dx); Cholangiocarcinoma (HCC); Peritoneal Carcinomatosis (HCC); Neutropenia Chemotherapy Induced (HCC); Pure Hypercholesterolemia Social History Tobacco Use Types Packs/Day Years Used Date Smoking Tobacco: Never Passive Smoke Exposure: Never Smokeless Tobacco: Never Alcohol Use Standard Drinks/Week Comments Not Currently 0 (1 standard drink = 0.6 oz pur e alcohol) occ Humiliation, Afraid, Rape, and Kick questionnair e [...] PHQ-2 Answer Date Recorded PHQ-2 Score 0 09/12/2022 Exercise Vital Sign Answer Date Recorde d On average, how many days pe r week do you engage in moderate to strenuous exercise (like a brisk walk)? 5 days 09/10/2022 On average, how many minutes do you engage in exercise at this level? 40 min 09/10/2022 Hunger Vital Sign Answer Date Recorded Within the past 12 months, y ou worried that your food would run out before you got the money to buy more. Never true 09/11/19 Within the past 12 months, t he food you bought just didn't last and you didn't have money to get more. Never true 09/10/2022 PRAPARE - Transportation Answer Date Re corded In the past 12 months, has l ack of transportation kept you from medical appointments or from getting medications? No 08/30 In the past 12 months, has l ack of transportation kept you from meetings, work, or from getting things needed for daily living? No 09/10/2022 Nutrition Answer Date Recorded On average, how many serving s of fruits and vegetables do you eat per day (serving size is equal to 1 cup or approximately the size of a tennis ball)? 3-5 09/10/2022 Dental Answer Date Recorded Dental: Regular Dentist Yes 09/11/19 Employment Answer Date Recorded Employment status Retired 09/10/2022 Housing Stability Answer Date Recorded What is your living situation today? I have a [facility] place to live 09/10/2022 Sex and Gender Information Value Date Recorded Sex Assigned at Male 09/10/2022 12:02 PM CDT Gender Identity Male 09/10/2022 12:02 PM CDT Sexual Orientation Straight 09/10/2022 12 :02 PM CDT documented as of this encounter Plan of Treatment Upcoming Encounters Date Type Department Care Team (Latest Contact Info) Description 11/07/2023 3:15 PM CDT Clinical Communication Virtual Review in [place], [place] 200 [place] [address] 11/15/2023 6:40 AM CDT Lab Department of Laboratory Medicine and Pathology, [facility], in [place], [place] [address] [place] [phone] Loyda Lennon M.D. [address] [place] [phone] 11/15/2023 8:20 AM CDT Office Visit Department of Oncology in [place], [place] [address] [place] [phone] Manjit Velasquez APRN, C.N.P., D.N.P. [address] [place] [phone] 11/15/2023 9:30 AM CDT Comprehensive Visit Department of Palliative Care in [place], [place] [address] [place] [phone] Patty Gomez APRN, C.N.P., M.S.N. [address] [place] [phone] 11/15/2023 2:15 PM CDT Infusion Department of Oncology in [address] [phone] Loyda Lennon M.D. [address] [place] [phone] 11/22/2023 7:30 AM CDT Lab Department of Oncology in [address] [address] Loyda Lennon M.D. [address] [place] [phone] 11/22/2023 8:45 AM CDT Infusion Department of Oncology in [address] [address] Loyda Lennon M.D. [address] [place] [phone] 11/28/2023 3:30 PM CDT Clinical Communication Virtual Review in [place], [place] 200 [place] [address] 11/29/2023 9:00 AM CDT Procedure visit Department of Urology in [place], [place] [address] [place] [phone] Mark Colorado M.D. [facility] [address] 11/29/2023 11:20 AM CDT Lab Department of Laboratory Medicine and Pathology, [facility], in [place], [place] [address] [place] [phone] Loyda Lennon M.D. [address] [place] [phone] 11/29/2023 11:30 AM CDT Lab Department of Oncology in [place], [place] [address] [place] [phone] Loyda Lennon M.D. [address] [place] [phone] 11/29/2023 1:00 PM CDT Infusion Department of Oncology in [place], [place] [address] [place] [phone] Loyda Lennon M.D. [address] [place] [phone] 12/03/2023 1:45 PM CDT Comprehensive Visit Department of Urology in [address] [address] Mona Egan, PHoldenA.-CHolden [address] [place] [phone] 12/05/2023 1:20 PM CDT Comprehensive Visit Department of Oncology in [place], [place] [address] [place] [phone] Letty Kate M.D. [address] [place] [phone] 12/10/2023 3:00 PM CDT Clinical Communication Virtual Review in [place], [place] [address] [place] [address] 12/10/2023 3:30 PM CDT Procedure visit Department of Urology in [place], [place] [address] [place] [phone] Mark Colorado M.D. [address] [place] [address] 12/12/2023 3:45 PM CDT Appointment Department of Radiology, [facility], in [place], [place] [address] [place] [phone] Na Hernandez M.D., Ph.D. [address] [place] [phone] 12/13/2023 6:00 AM CDT Lab Department of Laboratory Medicine and Pathology, [facility], in [place], [place] [address] [place] [phone] Loyda Lennon M.D. [address] [place] [phone] 12/13/2023 6:20 AM CDT Lab Department of Infusion Therapy in [place], [place] [address] [place] [phone] Loyda Lennon M.D. [address] [place] [phone] 12/13/2023 11:10 AM CDT Office Visit Department of Oncology in [place], [place] [address] [place] [phone] Na Hernandez M.D., Ph.D. [address] [place] [address] 12/13/2023 1:00 PM CDT Infusion Department of Oncology in [place], [place] [address] [place] [phone] Loyda Lennon M.D. [address] [place] [address] 12/20/2023 9:20 AM CDT Lab Department of Infusion Therapy in [place], [place] [address] [place] [phone] Loyda Lennon M.D. [address] [place] [phone] 12/20/2023 10:30 AM CDT Infusion Department of Oncology in [place], [place] [address] [place] [phone] Loyda Lennon M.D. [address] [place] [phone] 12/25/2023 10:30 AM CDT Appointment Division of Gastroenterology in [place], [place] [address] [place] [phone] Na Hernandez M.D., Ph.D. [address] [place] [phone] 12/27/2023 10:15 AM CDT Lab Department of Oncology in [address] [phone] Loyda Lennon M.D. [address] [place] [phone] 12/27/2023 10:30 AM CDT Lab Department of Laboratory Medicine and Pathology, [facility], in [place], [place] [address] [place] [phone] Loyda Lennon M.D. [address] [place] [phone] 12/27/2023 11:45 AM CDT Infusion Department of Oncology in [address] [place] [address] Loyda Lennon M.D. [address] [place] [phone] 01/03/2024 1:00 PM CDT Clinical Communication Virtual Review in [place], [place] 200 [place] [address] 01/10/2024 8:00 AM CDT Lab Department of Infusion Therapy in [place], [place] [address] [place] [phone] Loyda Lennon M.D. [address] [place] [address] 01/10/2024 8:20 AM CDT Lab Department of Laboratory Medicine and Pathology, [facility], in [place], [place] [address] [place] [phone] Loyda Lennon M.D. [address] [place] [phone] 01/10/2024 10:30 AM CDT Office Visit Department of Oncology in [address] [address] Na Hernandez M.D., Ph.D. [address] [place] [phone] 01/10/2024 11:45 AM CDT Infusion Department of Oncology in [place], [place] [address] [place] [phone] Loyda Lennon M.D. [address] [place] [phone] 01/17/2024 8:45 AM CDT Lab Department of Oncology in [place], [place] [address] [place] [phone] Loyda Lennon M.D. [address] [place] [address] 01/17/2024 10:00 AM CDT Infusion Department of Oncology in [place], [place] [address] [place] [phone] Loyda Lennon M.D. [address] [place] [phone] 01/24/2024 8:00 AM CDT Lab Department of Laboratory Medicine and Pathology, [facility], in [place], [place] [address] [place] [phone] Loyda Lennon M.D. [address] [place] [phone] 01/24/2024 8:15 AM CDT Lab Department of Oncology in [place], [place] [address] [place] [phone] Loyda Lennon M.D. [address] [place] [phone] 01/24/2024 9:15 AM CDT Infusion Department of Oncology in [place], [place] [address] [place] [phone] Loyda Lennon M.D. [address] [place] [phone] Scheduled Procedures Name Priority Associated Diagnoses Date/Ti me HEPATECTOMY RESECTION LIVER Cholangiocarcinoma (HCC) ULTRASOUND LIVER Cholangiocarcinoma (HCC) RECONSTRUCTION PORTAL VEIN Cholangiocarcinoma (HCC) documented as of this encounter Visit Diagnoses Diagnosis Usp Current Drug Therapy, Chemotherapy- Primary Cholangiocarcinoma (HCC) Peritoneal Carcinomatosis (HCC) Neutropenia Chemotherapy Induced (HCC) Pure Hypercholesterolemia documented in this encounter Administered Medications Inactive Administered Medications - up to 3 most recent administrations Medication Order MAR Action Action Date Dose Rate Site dexAMETHasone injection 10 mg (Decadron) 10 mg, intravenous, Once, On Sat10/08/23 at 1230, For 1 dose Given 10/08/2023 12:15 PM CDT 10 mg diphenhydrAMINE 25 mg in NaCl 0.9% IVPB (BenadryL) 25 mg, intravenous, at 101 mL/hr, Administer over 30 Minutes, Once, On Sat10/08/23 at 1230, For 1 dose New Bag 10/08/2023 12:34 PM CDT 25 mg 101 mL/hr famotidine injection 20 mg (Pepcid) 20 mg, intravenous, Once, On Sat10/08/23 at 1230, For 1 dose Given 10/08/2023 12:15 PM CDT 20 mg heparin flush 500 Units 500 Units, intra-catheter, As needed, line care, Starting on Sat10/08/23 at 1203, When IVAD accessed and not infusing: When no infusion to maintain patency flush every 7 days following NaCL flush. 5 mL (500 units) of Heparin 100 units/mL to each port/lumen. When IVAD not accessed or infusing: When no infusion to maintain patency flush every 28 days following NaCL flush. 5 mL (500 units) of Heparin 100 units/mL to each port/lumen. Given 10/08/2023 4:07 PM CDT 500 Units NaCl 0.9 % bolus 1,000 mL 1,000 mL, intravenous, at 1,000 mL/hr, Administer over 1 Hours, Once, On Sat10/08/23 at 1230, For 1 dose New Bag 10/08/2023 12:34 PM CDT 1,000 mL 1000 mL/hr ondansetron (PF) injection 8 mg (Zofran) 8 mg, intravenous, Once, On Sat10/08/23 at 1230, For 1 dose Given 10/08/2023 12:15 PM CDT 8 mg PACLitaxeL 126 mg in NaCl 0.9% (non-PVC/non-DEHP) 296 mL IVPB (TaxoL) 126 mg (rounded from 128.4 mg = 60 mg/m2 ? 2.14 m2 Treatment Plan BSA from Measured weight), intravenous, at 296 mL/hr, Administer over 1 Hours, Once, On Sat10/08/23 at 1400, For 1 dose, Administer immediately after the end of the CTX-009 infusion. Administer via 0.22 micron in-line filter. New Bag 10/08/2023 2:45 PM CDT 126 mg 296 mL/hr Research IRB [id number] CTX-009 900 mg in NaCl 0.9% (non-PVC/non-DEHP) 250 mL IVPB 900 mg (10 mg/kg ? 90 kg Treatment plan Measured weight), intravenous, at 250 mL/hr, Administer over 1 Hours, Once, On Sat10/08/23 at 1300, For 1 dose, May administer 15 minutes [...] bag and tubing are non-PVC. New Bag 10/08/2023 1:19 PM CDT 900 mg 250 mL/hr sodium chloride 0.9 % injection 10-20 mL 10-20 mL, intra-catheter, As needed, line care, Starting on Sat10/08/23 at 1203, When IVAD accessed and infusing: Flush prior to and following infusion, between multiple consecutive infusions. 10 mL to each port/lumen. Given 10/08/2023 4:07 PM CDT 10 mL Given 10/08/2023 2:28 PM CDT 30 mL documented in this encounter Additional Health Concerns Infection Onset Date Last Indicated Resolved Time Protective Environment 11/07/2022 11/07/2022 documented as of this encounter Care Teams Clinical Social Worker Relationship Specialty Start Date End Date Mark Colorado M.D. [place]: [phone] [address] [place] [address] PCP - General Family Medicine 11/09/22 documented as of this encounter
--- OUTSIDE RECORDS SUMMARY | 2023-11-05 22:07 | XMS_ITS | Encounter Summary ---
Author Organization [facility] Address [address] [place] [address] Care Team Providers Care Motor Coach Driver Name Role Phone Mark Colorado M.D. Primary Care Provider [phone] Reason for Visit * Outpatient (Routine) - Closed Specialty Diagnoses / Procedures Referred By Chloe hinkle Referred To Contact Oncology Diagnoses Cholangiocarcinoma (HCC) Loyda Lennon M.D. [address] [place] [address] [facility] Referral ID Status Reason Start Date Expiration Date Visits Re quested Visits Authorized [id number] Closed 10/14/2023 04/14/2025 1 1 Encounter Details Date Type Department Care Team ([facility] st Contact Info) Description 10/15/2023 9:20 AM CDT Nurse Only Department of Oncology in [place], [place] [address] [place] [address] Loyda Lennon M.D. [address] [place] [address] Renetta Hayden R.N. Social History Tobacco Use Types Packs/Day Years Used Date Smoking Tobacco: Never Passive Smoke Exposure: Never Smokeless Tobacco: Never Alcohol Use Standard Drinks/Week Comments Not Currently 0 (1 standard drink = 0.6 oz pur e alcohol) occ [facility] Utilities Answer Date Recorded In the [...] your living situation today? [facility] 10/10/2023 Sex and Gender Information Value Date Recorded Sex Assigned at Male 09/10/2022 12:02 PM CDT Gender Identity Male 09/10/2022 12:02 PM CDT Sexual Orientation Straight 09/10/2022 12 :02 PM CDT documented as of this encounter Last Filed Vital Signs Vital Sign Reading Time Taken Comments Blood Pressure 142/72 10/15/2023 9:16 AM CDT Pulse 64 10/15/2023 9:16 AM CDT Temperature 36.9 ??C (98.4 ??F) 10/15/2023 9:16 AM CD T Respiratory Rate 16 10/15/2023 9:16 AM CDT Oxygen Saturation 98% 10/15/2023 9:16 AM CDT Inhaled Oxygen Concentration - - Weight 89.1 kg (196 lb 6.9 oz) 10/15/2023 9:16 A M CDT Height 182.8 cm (5' 11.97) 10/15/2023 9:16 AM C DT Body Mass Index 26.66 10/15/2023 9:16 AM CDT documented in this encounter Progress Notes * Renetta Hayden, R.N. - 10/15/2023 9:20 AM CDT Nurse Only Toxicity Check Visit Collaborating Provider Dr. Na Hernandez Reason for Visit Mr. Sepulveda is here in preparation for day 8 cycle 8 of for clinical trial CTX-009-002. Oncology History Cholangiocarcinoma (HCC) 09/12/2022 Critical Imaging [...] Genotyping POSITIVE Germline genetic testing in 2022; [employer] + RNA panel from [facility]. 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 One Variant of Uncertain Significance (VUS) identified in the BRCA1 gene, specifically c.3607C>G 06/18/2023 - Research Study Participant Research Study: A Study of CTX-009 in Combination With Paclitaxel in Adult Patients With Unresectable Advanced, Metastatic or Recurrent Biliary Tract Cancers (REFINERY OPERATOR COKING-002) ([id number]) Treatment Protocol: [facility] CTX-009-002 ( CTX-009 / PACLitaxel ) Interval History by RN Mr. Sepulveda presents today, along with his spouse Wilfredo, for a toxicity check for clinical trial CTX-009-002, prior to receiving treatment for cycle 8 day 8. He has been experiencing persistent fatigue, increased lower abdominal pain, increases in this blood pressures, and nausea with vomiting. His fatigue has been persistent following his last treatment on 10/08/23. He states that this has improved inthe past a few days after treatment, but that has not been his experience in the last week. He alsostates having increased lower abdominal pain. He is currently taking his Hydromorphone once a day around noon and this is after he has a high increase in his pain level. We discussed introducing Tylenol on a schedule to help improve his pain management. If adding the Tylenol on a schedule does not help improve his pain, he will increase the frequency of taking his Hydromorphone to twice a day. I encouraged Mr. Sepulveda to continue taking his antiemetics as prescribed, alternating the Compazine andZofran. We discussed drinking small glasses of water frequently throughout the whole day, instead of drinking a large amount all at once. Mr. Sepulveda also expressed that he no longer likes the taste ofthe water in his home, due to treatment. We talked about trying a water bottle with a filter or trying to add flavor to his water to make it more enjoyable. In regard to his blood pressures, over thelast few days he has elevated BP's in the 160s/80s in the morning and evenings, with readings of 130s-140s/70s around noon. He declines having any headaches, vision changes, lightheadedness, or increased dizziness. After discussing his elevated blood pressures with Dr. Hernandez, we will increase his Lisinopril to 20 mg daily and continue his Amlodipine at 10 mg daily. I advised Mr. Sepulveda to continue taking these medications at his normal time in the evenings. Systems Review The patient is seen today, 10/15/2023, and reports the following: General - fatigue Skin - no issues or concerns Eyes, ears, nose, throat - no changes since last visit - No changes since last visit GI - nausea: is treating with Zofran and states that this treatment is temporarily effective, vomiting Respiratory - no issues or concerns, dyspnea upon exertion, he states this has not worsened with his last treatment Cardiac - no issues or concerns Neuro - no issues or concerns Musculoskeletal - no issues or concerns Psychosocial - no issues or concerns, no changes since last visit Weight Today: 89.1 kg Labs reviewed by clinical staff rn list reviewed & updated by RN Plan Patient will proceed with cycle 8 day 8 of clinical trial CTX-009-002 Patient will return to clinic 10/21 Patient and or spouse, Wilfredo, will reach out with any new symptoms with increasing his Lisinopril. I have updated one of our care team providers, Dr. 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 There are no findings that are unexpected at this point in treatment and the patient is managing symptoms adequately without significant acute toxicity. He will continue with cycle 8 day 8of clinical trial CTX-009-002 treatment as planned. The following recommendations were discussed with the patient: Encouraged use of previously discussed anti-emetics as prescribed, Compazine and Zofran., Encouraged use of previously discussed pain regimen medications, Hydromorphone and Tylenol., Encouraged hydration with caffeine-free clear liquids., and Encouraged activity as tolerated and rest when needed. and Mrs. Sepulveda were encouraged to contact our team at any time with questions or concerns. Theyexpressed understanding and agrees with the plan. They have no further questions or concerns at this time. documented in this encounter Plan of Treatment Upcoming Encounters Date Type Department Care Team (Latest Contact Info) Description 11/07/2023 3:15 PM CDT Clinical Communication Virtual Review in [address] [phone] 11/15/2023 6:40 AM CDT Lab Department of Laboratory Medicine and Pathology, [facility], in [address] [address] Loyda Lennon M.D. [address] [place] [phone] 11/15/2023 8:20 AM CDT Office Visit Department of Oncology in [address] [address] Manjit Velasquez APRN, C.N.P., D.N.P. [address] [place] [phone] 11/15/2023 9:30 AM CDT Comprehensive Visit Department of Palliative Care in [address] [address] Patty Gomez, KAYLEE, C.N.P., M.S.N. [address] [place] [phone] 11/15/2023 2:15 PM CDT Infusion Department of Oncology in [address] [address] Loyda Lennon M.D. [address] [place] [phone] 11/22/2023 7:30 AM CDT Lab Department of Oncology in [place], [place] [address] [place] [phone] Loyda Lennon M.D. [address] [place] [phone] 11/22/2023 8:45 AM CDT Infusion Department of Oncology in [place], [place] [address] [place] [phone] Loyda Lennon M.D. [address] [place] [address] 11/28/2023 3:30 PM CDT Clinical Communication Virtual Review in [place], [place] [address] [place] [address] 11/29/2023 9:00 AM CDT Procedure visit Department of Urology in [place], [place] [address] [place] [phone] Mark Colorado M.D. [address] [place] [address] [place] [address] 11/29/2023 11:20 AM CDT Lab Department of Laboratory Medicine and Pathology, [facility], in [place], [place] [address] [place] [phone] Loyda Lennon M.D. [address] [place] [phone] 11/29/2023 11:30 AM CDT Lab Department of Oncology in [place], [place] [address] [place] [phone] Loyda Lennon M.D. [address] [place] [phone] 11/29/2023 1:00 PM CDT Infusion Department of Oncology in [place], [place] [address] [place] [phone] Loyda Lennon M.D. [address] [place] [phone] 12/03/2023 1:45 PM CDT Comprehensive Visit Department of Urology in [place], [place] [address] [place] [phone] Mona Egan P.A.-C. [address] [place] [phone] 12/05/2023 1:20 PM CDT Comprehensive Visit Department of Oncology in [place], [place] [address] [place] [phone] Letty Kate M.D. [address] [place] [phone] 12/10/2023 3:00 PM CDT Clinical Communication Virtual Review in [place], [place] [address] [place] [address] 12/10/2023 3:30 PM CDT Procedure visit Department of Urology in [place], [place] [address] [place] [phone] Mark Colorado M.D. [facility] [place] [address] 12/12/2023 3:45 PM CDT Appointment Department of Radiology, [facility], in [place], [place] [address] [place] [phone] Na Hernandez M.D., Ph.D. [address] [place] [phone] 12/13/2023 6:00 AM CDT Lab Department of Laboratory Medicine and Pathology, [facility], in [place], [place] [address] [place] [phone] Loyda Lennon M.D. [address] [place] [phone] 12/13/2023 6:20 AM CDT Lab Department of Infusion Therapy in [place], [place] [address] [place] [phone] Loyda Lennon M.D. [address] [place] [phone] 12/13/2023 11:10 AM CDT Office Visit Department of Oncology in [place], [place] [address] [place] [phone] Na Hernandez M.D., Ph.D. [address] [place] [address] 12/13/2023 1:00 PM CDT Infusion Department of Oncology in [place], [place] [address] [place] [phone] Loyda Lennon M.D. [address] [place] [phone] 12/20/2023 9:20 AM CDT Lab Department of Infusion Therapy in [address] [address] Loyda Lennon M.D. [address] [place] [phone] 12/20/2023 10:30 AM CDT Infusion Department of Oncology in [place], [place] [address] [place] [phone] Loyda Lennon M.D. [address] [place] [phone] 12/25/2023 10:30 AM CDT Appointment Division of Gastroenterology in [address] [address] Na Hernandez M.D., Ph.D. [address] [place] [phone] 12/27/2023 10:15 AM CDT Lab Department of Oncology in [place], [place] [address] [place] [phone] Loyda Lennon M.D. [address] [place] [phone] 12/27/2023 10:30 AM CDT Lab Department of Laboratory Medicine and Pathology, [facility] in [place], [place] [address] [place] [phone] Loyda Lennon M.D. [address] [place] [phone] 12/27/2023 11:45 AM CDT Infusion Department of Oncology in [place], [place] [address] [place] [phone] Loyda Lennon M.D. [address] [place] [phone] 01/03/2024 1:00 PM CDT Clinical Communication Virtual Review in [address] [address] 01/10/2024 8:00 AM CDT Lab Department of Infusion Therapy in [place], [place] [address] [place] [phone] Loyda Lennon M.D. [address] [place] [address] 01/10/2024 8:20 AM CDT Lab Department of Laboratory Medicine and Pathology, [facility] in [place], [place] [address] [place] [phone] Loyda Lennon M.D. [address] [place] [phone] 01/10/2024 10:30 AM CDT Office Visit Department of Oncology in [place], [place] [address] [place] [phone] Na Hernandez M.D., Ph.D. [address] [place] [phone] 01/10/2024 11:45 AM CDT Infusion Department of Oncology in [place], [place] [address] [place] [phone] Loyda Lennon M.D. [address] [place] [phone] 01/17/2024 8:45 AM CDT Lab Department of Oncology in [place], [place] [address] [place] [phone] Loyda Lennon M.D. [address] [place] [phone] 01/17/2024 10:00 AM CDT Infusion Department of Oncology in [place], [place] [address] [place] [phone] Loyda Lennon M.D. [address] [place] [phone] 01/24/2024 8:00 AM CDT Lab Department of Laboratory Medicine and Pathology, [facility], in [place], [place] [address] [place] [phone] Loyda Lennon M.D. [address] [place] [phone] 01/24/2024 8:15 AM CDT Lab Department of Oncology in [place], [place] [address] [place] [phone] Loyda Lennon M.D. [address] [place] [address] 01/24/2024 9:15 AM CDT Infusion Department of Oncology in [place], [place] [address] [place] [address] Loyda Lennon M.D. [address] [place] [address] Scheduled Procedures Name Priority Associated Diagnoses Date/Ti me HEPATECTOMY RESECTION LIVER Cholangiocarcinoma (HCC) ULTRASOUND LIVER Cholangiocarcinoma (HCC) RECONSTRUCTION PORTAL VEIN Cholangiocarcinoma (HCC) documented as of this encounter Visit Diagnoses Diagnosis Cholangiocarcinoma (HCC) documented in this encounter Additional Health Concerns Infection Onset Date Last Indicated Resolved Time Protective Environment 11/07/2022 11/07/2022 documented as of this encounter Care Teams Motor Coach Driver Relationship Specialty Start Date End Date Mark Colorado M.D. [address] [place] [address] PCP - General Family Medicine 11/09/22 documented as of this encounter
--- OUTSIDE RECORDS SUMMARY | 2023-11-05 22:07 | XMS_ITS | Encounter Summary ---
Author Organization [facility] Address [address] [place] [address] Care Team Providers Care Maintenance Pipefitter Name Role Phone Mark Colorado M.D. Primary Care Provider [phone] Reason for Referral * Outpatient (Routine) - Closed Specialty Diagnoses / Procedures Referred By Chloe hinkle Referred To Contact Oncology Diagnoses Cholangiocarcinoma (HCC) Loyda Lennon M.D. [address] [place] [address] [facility] Referral ID Status Reason Start Date Expiration Date Visits Re quested Visits Authorized [id number] Closed 10/14/2023 04/14/2025 1 1 Scheduling Instructions Schedule with Renetta Hayden Encounter Details Date Type Department Care Team (Latest Contact Info) Description 10/14/2023 Orders Only Department of Oncology in [place], [place] [address] [place] [address] Omero Lopes Pure Hypercholesterolemia (Primary Dx); Cholangiocarcinoma (HCC) Social History Tobacco Use Types Packs/Day Years Used Date Smoking Tobacco: Never Passive Smoke Exposure: Never Smokeless Tobacco: Never Alcohol Use Standard Drinks/Week Comments Not Currently 0 (1 standard drink = 0.6 oz pur e alcohol) occ [facility] Utilities Answer Date Recorded In the [...] your living situation today? [facility] 10/22/2023 Sex [...] PM CDT Clinical Communication Virtual Review in [place], [place] [address] [place] [address] 11/15/2023 6:40 AM CDT Lab Department of Laboratory Medicine and Pathology, [facility], in [address] [phone] Loyda Lennon M.D. [address] [place] [phone] 11/15/2023 8:20 AM CDT Office Visit Department of Oncology in [address] [address] Manjit Velasquez, KAYLEE, C.N.P., D.N.P. [address] [place] [phone] 11/15/2023 9:30 AM CDT Comprehensive Visit Department of Palliative Care in [place], [place] [address] [place] [phone] Patty Gomez APRN, CHoldenN.P., M.S.N. [address] [place] [phone] 11/15/2023 2:15 PM CDT Infusion Department of Oncology in [place], [place] [address] [place] [phone] Loyda Lennon M.D. [address] [place] [phone] 11/22/2023 7:30 AM CDT Lab Department of Oncology in [address] [phone] Loyda Lennon M.D. [address] [place] [address] 11/22/2023 8:45 AM CDT Infusion Department of Oncology in [address] [address] Loyda Lennon M.D. [address] [place] [phone] 11/28/2023 3:30 PM CDT Clinical Communication Virtual Review in [place], [place] [address] [place] [address] 11/29/2023 9:00 AM CDT Procedure visit Department of Urology in [address] [address] Mark Colorado M.D. [address] [place] [address] 11/29/2023 11:20 AM CDT Lab Department of Laboratory Medicine and Pathology, [place], in [place], [place] [address] [place] [phone] Loyda Lennon M.D. [address] [place] [phone] 11/29/2023 11:30 AM CDT Lab Department of Oncology in [place], [place] [address] [place] [phone] Loyda Lennon M.D. [address] [place] [phone] 11/29/2023 1:00 PM CDT Infusion Department of Oncology in [place], [place] [address] [place] [phone] Loyda Lennon M.D. [address] [place] [phone] 12/03/2023 1:45 PM CDT Comprehensive Visit Department of Urology in [place], [place] [address] [place] [phone] Mona Egan, PHoldenAHolden-Sara [address] [place] [phone] 12/05/2023 1:20 PM CDT Comprehensive Visit Department of Oncology in [place], [place] [address] [place] [phone] Letty Kate M.D. [address] [place] [phone] 12/10/2023 3:00 PM CDT Clinical Communication Virtual Review in [place], [place] [address] [place] [address] 12/10/2023 3:30 PM CDT Procedure visit Department of Urology in [place], [place] [address] [place] [phone] Mark Colorado M.D. [address] [place] [address] 12/12/2023 3:45 PM CDT Appointment Department of Radiology, [facility], in [place], [place] [address] [place] [phone] Na Hernandez M.D., Ph.D. [address] [place] [phone] 12/13/2023 6:00 AM CDT Lab Department of Laboratory Medicine and Pathology, [facility] in [place], [place] [address] [place] [phone] Loyda Lennon M.D. [address] [place] [address] 12/13/2023 6:20 AM CDT Lab Department of Infusion Therapy in [place], [place] [address] [place] [phone] Loyda Lennon M.D. [address] [place] [address] 12/13/2023 11:10 AM CDT Office Visit Department of Oncology in [place], [place] [address] [place] [phone] Na Hernandez M.D., Ph.D. [address] [place] [phone] 12/13/2023 1:00 PM CDT Infusion Department of Oncology in [place], [place] [address] [place] [phone] Loyda Lennon M.D. [address] [place] [phone] 12/20/2023 9:20 AM CDT Lab Department of Infusion Therapy in [place], [place] [address] [place] [phone] Loyda Lennon M.D. [address] [place] [phone] 12/20/2023 10:30 AM CDT Infusion Department of Oncology in [place], [place] [address] [place] [phone] Loyda Lennon M.D. [address] [place] [phone] 12/25/2023 10:30 AM CDT Appointment Division of Gastroenterology in [place], [place] [address] [place] [phone] Na Hernandez M.D., Ph.D. [address] [place] [address] 12/27/2023 10:15 AM CDT Lab Department of Oncology in [place], [place] [address] [place] [phone] Loyda Lennon M.D. [address] [place] [phone] 12/27/2023 10:30 AM CDT Lab Department of Laboratory Medicine and Pathology, [facility] in [place], [place] [address] [place] [phone] Loyda Lennon M.D. [address] [place] [phone] 12/27/2023 11:45 AM CDT Infusion Department of Oncology in [place], [place] [address] [place] [phone] Loyda Lennon M.D. [address] [place] [address] 01/03/2024 1:00 PM CDT Clinical Communication Virtual Review in [place], [place] [address] [place] [address] 01/10/2024 8:00 AM CDT Lab Department of Infusion Therapy in [address] [phone] Loyda Lennon M.D. [address] [place] [address] 01/10/2024 8:20 AM CDT Lab Department of Laboratory Medicine and Pathology, [facility] in [place], [place] [address] [place] [phone] Loyda Lennon M.D. [address] [place] [phone] 01/10/2024 10:30 AM CDT Office Visit Department of Oncology in [address] [phone] Na Hernandez M.D., Ph.D. [address] [place] [phone] 01/10/2024 11:45 AM CDT Infusion Department of Oncology in [address] [address] Loyda Lennon M.D. [address] [place] [address] 01/17/2024 8:45 AM CDT Lab Department of Oncology in [address] [address] Loyda Lennon M.D. [address] [place] [address] 01/17/2024 10:00 AM CDT Infusion Department of Oncology in [place], [place] [address] [place] [address] [place] [address] Loyda Lennon M.D. [address] [place] [address] 01/24/2024 8:00 AM CDT Lab Department of Laboratory Medicine and Pathology, [facility], in [place], [place] [address] [place] [address] Loyda Lennon M.D. [address] [place] [address] 01/24/2024 8:15 AM CDT Lab Department of Oncology in [place], [place] [address] [place] [address] Loyda Lennon M.D. [address] [place] [phone] 01/24/2024 9:15 AM CDT Infusion Department of Oncology in [place], [place] [address] [place] [address] Loyda Lennon M.D. [address] [place] [phone] Scheduled Procedures Name Priority Associated Diagnoses Date/Ti me HEPATECTOMY RESECTION LIVER Cholangiocarcinoma (HCC) ULTRASOUND LIVER Cholangiocarcinoma (HCC) RECONSTRUCTION PORTAL VEIN Cholangiocarcinoma (HCC) Scheduled Referrals Name Type Priority Associated Diagnoses Orde r Schedule Oncology nurse visit (clinic) Outpatient Referral Routine Cholangiocarcinoma (HCC) Expected: 10/15/2023, Expires: 01/13/2025 documented as of this encounter Visit Diagnoses Diagnosis Pure Hypercholesterolemia- Primary Cholangiocarcinoma (HCC) documented in this encounter Additional Health Concerns Infection Onset Date Last Indicated Resolved Time Protective Environment 11/07/2022 11/07/2022 COVID19 Pending 10/22/2023 10/22/2023 10/22/2023 4 :18 AM CDT documented as of this encounter Care Teams Maintenance Pipefitter Relationship Specialty Start Date End Date Mark Colorado M.D. [address] [place] [address] PCP - General Family Medicine 11/09/22 documented as of this encounter
--- OUTSIDE RECORDS SUMMARY | 2023-11-05 22:07 | XMS_ITS | Encounter Summary ---
Author Organization [facility] Address [address] [place] [address] Care Team Providers Care Driller Hand Name Role Phone Mark Colorado M.D. Primary Care Provider [phone] Reason for Visit * Episode Based Medications (Routine) - Authorized Specialty Diagnoses / Procedures Referred By Contac t Referred To Contact Diagnoses Cholangiocarcinoma (HCC) Jail Current Drug Therapy, Chemotherapy Peritoneal Carcinomatosis (HCC) Neutropenia Chemotherapy Induced (HCC) Procedures IL ONDANSETRON HCL INJECTION IL PACLITAXEL INJECTION IL INJECTION, DARINEL ONC Yuok Pennington MPAS, P.A.-C. [address] [place] [address] Rst Onc Cruz [address] [place] [address] Referral ID Status Reason Start Date Expiration Date V isits Requested Visits Authorized [id number] Authorized 03/11/2023 03/31/2024 31 99 Encounter Details Date Type Department Care Team (Late st Contact Info) Description 10/15/2023 7:15 AM CDT Lab Department of Oncology in [place], [place] [address] [place] [address] Na Hernandez M.D., Ph.D. [address] [place] [phone] Pure Hypercholesterolemia (Primary Dx); Cholangiocarcinoma (HCC); Peritoneal Carcinomatosis (HCC); Neutropenia Chemotherapy Induced (HCC); Jail Current Drug Therapy, Chemotherapy Social History Tobacco Use Types Packs/Day Years Used Date Smoking Tobacco: Never Passive Smoke Exposure: Never Smokeless Tobacco: Never Alcohol Use Standard Drinks/Week Comments Not Currently 0 (1 standard drink = 0.6 oz pur e alcohol) [facility] Utilities Answer Date Recorded In the past 12 months has [employer], gas, oil, or water [employer] threatened to shut off services in your [...] living situation today? I have a [facility] place to live 10/10/2023 Sex and Gender Information Value Date Recorded Sex Assigned at Male 09/10/2022 12:02 PM CDT Gender Identity Male 09/10/2022 12:02 PM CDT Sexual Orientation Straight 09/10/2022 12 :02 PM CDT documented as of this encounter Plan of Treatment Upcoming Encounters Date Type Department Care Team (Latest Contact Info) Description 11/07/2023 3:15 PM CDT Clinical Communication Virtual Review in [place], [place] [address] [place] [address] 11/15/2023 6:40 AM CDT Lab Department of Laboratory Medicine and Pathology, [facility], in [place], [place] [address] [place] [phone] Loyda Lennon M.D. [address] [place] [address] 11/15/2023 8:20 AM CDT Office Visit Department of Oncology in [place], [place] [address] [place] [phone] Manjit eVlasquez APRN C.N.P., D.N.P. [address] [place] [phone] 11/15/2023 9:30 AM CDT Comprehensive Visit Department of Palliative Care in [place], [place] [address] [place] [phone] Patty Gomez APRN, C.N.P., M.S.N. [address] [place] [phone] 11/15/2023 2:15 PM CDT Infusion Department of Oncology in [place], [place] [address] [place] [phone] Loyda Lennon M.D. [address] [place] [phone] 11/22/2023 7:30 AM CDT Lab Department of Oncology in [address] [phone] Loyda Lennon M.D. [address] [place] [phone] 11/22/2023 8:45 AM CDT Infusion Department of Oncology in [address] [phone] Loyda Lennon M.D. [address] [place] [phone] 11/28/2023 3:30 PM CDT Clinical Communication Virtual Review in [place], [place] 200 [place] [address] 11/29/2023 9:00 AM CDT Procedure visit Department of Urology in [place], [place] [address] [place] [address] Mark Colorado M.D. [address] [place] [phone] 11/29/2023 11:20 AM CDT Lab Department of Laboratory Medicine and Pathology, [facility] in [place], [place] [address] [place] [phone] Loyda Lennon M.D. [address] [place] [phone] 11/29/2023 11:30 AM CDT Lab Department of Oncology in [place], [place] [address] [place] [address] Loyda Lennon M.D. [address] [place] [phone] 11/29/2023 1:00 PM CDT Infusion Department of Oncology in [place], [place] [address] [place] [phone] Loyda Lennon M.D. [address] [place] [phone] 12/03/2023 1:45 PM CDT Comprehensive Visit Department of Urology in [place], [place] [address] [place] [phone] Mona Egan, PJulio César [address] [place] [phone] 12/05/2023 1:20 PM CDT Comprehensive Visit Department of Oncology in [place], [place] [address] [place] [phone] Letty Kate M.D. [address] [place] [phone] 12/10/2023 3:00 PM CDT Clinical Communication Virtual Review in [place], [place] [address] [place] [address] 12/10/2023 3:30 PM CDT Procedure visit Department of Urology in [place], [place] [address] [place] [phone] Mark Colorado M.D. [address] [place] [address] [place] [phone] 12/12/2023 3:45 PM CDT Appointment Department of Radiology, [facility], in [place], [place] [address] [place] [phone] Na Hernandez M.D., Ph.D. [address] [place] [phone] 12/13/2023 6:00 AM CDT Lab Department of Laboratory Medicine and Pathology, [facility], in [place], [place] [address] [place] [phone] Loyda Lennon M.D. [address] [place] [phone] 12/13/2023 6:20 AM CDT Lab Department of Infusion Therapy in [place], [place] [address] [place] [phone] Loyda Lennon M.D. [address] [place] [phone] 12/13/2023 11:10 AM CDT Office Visit Department of Oncology in [place], [place] [address] [place] [phone] Na Hernandez M.D., Ph.D. [address] [place] [phone] 12/13/2023 1:00 PM CDT Infusion Department of Oncology in [place], [place] [address] [place] [phone] Loyda Lennon M.D. [address] [place] [phone] 12/20/2023 9:20 AM CDT Lab Department of Infusion Therapy in [place], [place] [address] [place] [phone] Loyda Lennon M.D. [address] [place] [phone] 12/20/2023 10:30 AM CDT Infusion Department of Oncology in [place], [place] [address] [place] [phone] Loyda Lennon M.D. [address] [place] [phone] 12/25/2023 10:30 AM CDT Appointment Division of Gastroenterology in [place], [place] [address] [place] [phone] Na Hernandez M.D., Ph.D. [address] [place] [phone] 12/27/2023 10:15 AM CDT Lab Department of Oncology in [place], [place] [address] [place] [phone] Loyda Lennon M.D. [address] [place] [phone] 12/27/2023 10:30 AM CDT Lab Department of Laboratory Medicine and Pathology, [facility], in [place], [place] [address] [place] [address] Loyda Lennon M.D. [address] [place] [phone] 12/27/2023 11:45 AM CDT Infusion Department of Oncology in [place], [place] [address] [place] [phone] Loyda Lennon M.D. [address] [place] [phone] 01/03/2024 1:00 PM CDT Clinical Communication Virtual Review in [place], [place] [address] [place] [address] 01/10/2024 8:00 AM CDT Lab Department of Infusion Therapy in [address] [phone] Loyda Lennon M.D. [address] [place] [phone] 01/10/2024 8:20 AM CDT Lab Department of Laboratory Medicine and Pathology, [facility] in [place], [place] [address] [place] [phone] Loyda Lennon M.D. [address] [place] [phone] 01/10/2024 10:30 AM CDT Office Visit Department of Oncology in [address] [phone] Na Hernandez M.D., Ph.D. [address] [place] [phone] 01/10/2024 11:45 AM CDT Infusion Department of Oncology in [place], [place] [address] [place] [phone] Loyda Lennon M.D. [address] [place] [phone] 01/17/2024 8:45 AM CDT Lab Department of Oncology in [place], [place] [address] [place] [phone] Loyda Lennon M.D. [address] [place] [phone] 01/17/2024 10:00 AM CDT Infusion Department of Oncology in [place], [place] [address] [place] [phone] Loyda Lennon M.D. [address] [place] [phone] 01/24/2024 8:00 AM CDT Lab Department of Laboratory Medicine and Pathology, [facility] in [place], [place] [address] [place] [phone] Loyda Lennon M.D. [address] [place] [phone] 01/24/2024 8:15 AM CDT Lab Department of Oncology in [place], [place] [address] [place] [phone] Loyda Lennon M.D. [address] [place] [phone] 01/24/2024 9:15 AM CDT Infusion Department of Oncology in [place], [place] [address] [place] [phone] Loyda Lennon M.D. [address] [place] [phone] Scheduled Procedures Name Priority Associated Diagnoses Date/Ti me HEPATECTOMY RESECTION LIVER Cholangiocarcinoma (HCC) ULTRASOUND LIVER Cholangiocarcinoma (HCC) RECONSTRUCTION PORTAL VEIN Cholangiocarcinoma (HCC) documented as of this encounter Procedures Procedure Name Priority Date/Time Associated Diagnosis Comments CBC WITH DIFFERENTIAL, B Routine 10/15/2023 7:31 AM CDT Cholangiocarcinoma (HCC) Peritoneal Carcinomatosis (HCC) Neutropenia Chemotherapy Induced (HCC) Process Controller Current Drug Therapy, Chemotherapy documented in this encounter Results * (ABNORMAL) CBC with Differential, Blood (10/15/2023 7:31 AM CDT) Hemoglobin 9.3(L) 13.2 - 16.6 g/dL 10/15/2023 8:21 AM CDT DTL Hematocrit 29.5(L) 38.3 - 48.6 % 10/15/2023 8:21 AM CDT DTL Erythrocytes 2.90(L) 4.35 - 5.65 x10(12)/L 10/15/2023 8:21 AM CDT DTL MCV 101.7(H) 78.2 - 97.9 fL 10/15/2023 8:21 AM CDT DTL RBC Distrib Width 15.9(H) 11.8 - 14.5 % 10/15/2023 8:21 AM CDT DTL Platelet Count 152 135 - 317 x10(9)/L 10/15/2023 8:21 AM CDT DTL Leukocytes 3.5 3.4 - 9.6 x10(9)/L 10/15/2023 8:21 AM CDT DTL Neutrophils 2.35 1.56 - 6.45 x10(9)/L 10/15/2023 8:20 AM CDT DHPM Lymphocytes 0.61(L) 0.95 - 3.07 x10(9)/L 10/15/2023 8:21 AM CDT DTL Monocytes 0.33 0.26 - 0.81 x10(9)/L 10/15/2023 8:21 AM CDT DTL Eosinophils 0.13 0.03 - 0.48 x10(9)/L 10/15/2023 8:21 AM CDT DTL Basophils 0.03 0.01 - 0.08 x10(9)/L 10/15/2023 8:21 AM CDT DTL Blood (Blood, Venous) 10/15/2023 7:31 AM CDT 10/15/2023 7:52 AM CDT Na Hernandez M.D., Ph.D. LAB BLOOD A DD-ON [facility] [address] [place] [address], [place] DTL [facility] [place] [address] [place] [address] [facility] [address] [place] [address] documented in this encounter Visit Diagnoses Diagnosis Pure Hypercholesterolemia- Primary Cholangiocarcinoma (HCC) Peritoneal Carcinomatosis (HCC) Neutropenia Chemotherapy Induced (HCC) Process Controller Current Drug Therapy, Chemotherapy documented in this encounter Administered Medications Inactive Administered Medications - up to 3 most recent administrations Medication Order MAR Action Action Date Dose Rate Site heparin flush 500 Units 500 Units, intra-catheter, As needed, line care, Starting on Sat10/15/23 at 0711, When IVAD accessed and not infusing: When no infusion to maintain patency flush every 7 days following NaCL flush. 5 mL (500 units) of Heparin 100 units/mL to each port/lumen. When IVAD not accessed or infusing: When no infusion to maintain patency flush every 28 days following NaCL flush. 5 mL (500 units) of Heparin 100 units/mL to each port/lumen. Given 10/15/2023 7:32 AM CDT 500 Units sodium chloride 0.9 % injection 20-40 mL 20-40 mL, intra-catheter, As needed, line care, Starting on Sat10/15/23 at 0711, When IVAD accessed and infusing: Flush prior to blood sampling, post blood transfusion or post blood sampling. 20 mL to each port/lumen. Given 10/15/2023 7:32 AM CDT 20 mL documented in this encounter Additional Health Concerns Infection Onset Date Last Indicated Resolved Time Protective Environment 11/07/2022 11/07/2022 documented as of this encounter Care Teams Driller Hand Relationship Specialty Start Date End Date Mark Colorado M.D. LOUISAI: [phone] [address] [place] [phone] PCP - General Family Medicine 11/09/22 documented as of this encounter
--- OUTSIDE RECORDS SUMMARY | 2023-11-05 22:08 | XMS_ITS | Encounter Summary ---
Author Organization [facility] Address [address] [place] [address] Care Team Providers Care Mate Chief Name Role Phone Mark Colorado M.D. Primary Care Provider [phone] Encounter Details Date Type Department Care Team (Late st Contact Info) Description 10/02/2023 Orders Only Department of Oncology in [place], [place] [address] [place] [address] Omero Lopes Social History Tobacco Use Types Packs/Day Years Used Date Smoking Tobacco: Never Passive Smoke Exposure: Never Smokeless Tobacco: Never Alcohol Use Standard Drinks/Week Comments Not Currently 0 (1 standard drink = 0.6 oz pur e alcohol) [facility] Utilities Answer Date Recorded In the past 12 months has [employer], gas, oil, or water [employer] threatened to shut off services in your [...] [facility] live 10/10/2023 Sex and Gender Information Value Date Recorded Sex Assigned at Male 09/10/2022 12:02 PM CDT Gender Identity Male 09/10/2022 12:02 PM CDT Sexual Orientation Straight 09/10/2022 12 :02 PM CDT documented as of this encounter Plan of Treatment Upcoming Encounters Date Type Department Care Team (Latest Contact Info) Description 11/07/2023 3:15 PM CDT Clinical Communication Virtual Review in [place], [place] 200 [place] [address] 11/15/2023 6:40 AM CDT Lab Department of Laboratory Medicine and Pathology, [facility] in [address] [phone] Loyda Lennon M.D. [address] [place] [phone] 11/15/2023 8:20 AM CDT Office Visit Department of Oncology in [address] [phone] Manjit Velasquez APRN, C.N.P., D.N.P. [address] [place] [phone] 11/15/2023 9:30 AM CDT Comprehensive Visit Department of Palliative Care in [address] [phone] Patty Gomez APRN, C.N.P., M.S.N. [address] [place] [phone] 11/15/2023 2:15 PM CDT Infusion Department of Oncology in [address] [phone] Loyda Lennon M.D. [address] [place] [phone] 11/22/2023 7:30 AM CDT Lab Department of Oncology in [place], [place] [address] [place] [phone] Loyda Lennon M.D. [address] [place] [phone] 11/22/2023 8:45 AM CDT Infusion Department of Oncology in [place], [place] [address] [place] [phone] Loyda Lennon M.D. [address] [place] [phone] 11/28/2023 3:30 PM CDT Clinical Communication Virtual Review in [place], [place] 200 [place] [address] 11/29/2023 9:00 AM CDT Procedure visit Department of Urology in [place], [place] [address] [place] [phone] Mark Colorado M.D. [address] [place] [address] [place] [address] 11/29/2023 11:20 AM CDT Lab Department of Laboratory Medicine and Pathology, [facility], in [place], [place] [address] [place] [phone] Loyda Lennon M.D. [address] [place] [phone] 11/29/2023 11:30 AM CDT Lab Department of Oncology in [place], [place] [address] [place] [phone] Loyda Lennon M.D. [address] [place] [phone] 11/29/2023 1:00 PM CDT Infusion Department of Oncology in [place], [place] [address] [place] [phone] Loyda Lennon M.D. [address] [place] [phone] 12/03/2023 1:45 PM CDT Comprehensive Visit Department of Urology in [place], [place] [address] [place] [phone] Mona Egan P.A.-C. [address] [place] [phone] 12/05/2023 1:20 PM CDT Comprehensive Visit Department of Oncology in [place], [place] [address] [place] [phone] Letty Kate M.D. [address] [place] [phone] 12/10/2023 3:00 PM CDT Clinical Communication Virtual Review in [place], [place] [address] [place] [address] 12/10/2023 3:30 PM CDT Procedure visit Department of Urology in [place], [place] [address] [place] [phone] Mark Colorado M.D. [address] [place] [address] [place] [address] 12/12/2023 3:45 PM CDT Appointment Department of Radiology, [facility], in [place], [place] [address] [place] [phone] Na Hernandez M.D., Ph.D. [address] [place] [phone] 12/13/2023 6:00 AM CDT Lab Department of Laboratory Medicine and Pathology, [facility], in [place], [place] [address] [place] [phone] Loyda Lennon M.D. [address] [place] [phone] 12/13/2023 6:20 AM CDT Lab Department of Infusion Therapy in [place], [place] [address] [place] [phone] Loyda Lennon M.D. [address] [place] [phone] 12/13/2023 11:10 AM CDT Office Visit Department of Oncology in [place], [place] [address] [place] [phone] Na Hernandez M.D., Ph.D. [address] [place] [phone] 12/13/2023 1:00 PM CDT Infusion Department of Oncology in [place], [place] [address] [place] [phone] Loyda Lennon M.D. [address] [place] [phone] 12/20/2023 9:20 AM CDT Lab Department of Infusion Therapy in [place], [place] [address] [place] [phone] Loyda Lennon M.D. [address] [place] [phone] 12/20/2023 10:30 AM CDT Infusion Department of Oncology in [place], [place] [address] [place] [phone] Loyda Lennon M.D. [address] [place] [phone] 12/25/2023 10:30 AM CDT Appointment Division of Gastroenterology in [address] [phone] Na Hernandez M.D., Ph.D. [address] [place] [phone] 12/27/2023 10:15 AM CDT Lab Department of Oncology in [address] [phone] Loyda Lennon M.D. [address] [place] [phone] 12/27/2023 10:30 AM CDT Lab Department of Laboratory Medicine and Pathology, [address] [phone] Loyda Lennon M.D. [address] [place] [phone] 12/27/2023 11:45 AM CDT Infusion Department of Oncology in [address] [phone] Loyda Lennon M.D. [address] [place] [phone] 01/03/2024 1:00 PM CDT Clinical Communication Virtual Review in [place], [place] 200 [place] [address] 01/10/2024 8:00 AM CDT Lab Department of Infusion Therapy in [address] [phone] Loyda Lennon M.D. [address] [place] [phone] 01/10/2024 8:20 AM CDT Lab Department of Laboratory Medicine and Pathology, [facility], [place] [address] [place] [address] Loyda Lennon M.D. [address] [place] [phone] 01/10/2024 10:30 AM CDT Office Visit Department of Oncology in [place], [place] [address] [place] [phone] Na Hernandez M.D., Ph.D. [address] [place] [phone] 01/10/2024 11:45 AM CDT Infusion Department of Oncology in [place], [place] [address] [place] [address] Loyda Lennon M.D. [address] [place] [phone] 01/17/2024 8:45 AM CDT Lab Department of Oncology in [place], [place] [address] [place] [address] Loyda Lennon M.D. [address] [place] [phone] 01/17/2024 10:00 AM CDT Infusion Department of Oncology in [place], [place] [address] [place] [address] Loyda Lennon M.D. [address] [place] [phone] 01/24/2024 8:00 AM CDT Lab Department of Laboratory Medicine and Pathology, [facility], in [place], [place] [address] [place] [address] Loyda Lennon M.D. [address] [place] [phone] 01/24/2024 8:15 AM CDT Lab Department of Oncology in [place], [place] [address] [place] [address] Loyda Lennon M.D. [address] [place] [phone] 01/24/2024 9:15 AM CDT Infusion Department of Oncology in [place], [place] [address] [place] [address] Loyda Lennon M.D. [address] [place] [phone] Scheduled Procedures Name Priority Associated Diagnoses Date/Ti me HEPATECTOMY RESECTION LIVER Cholangiocarcinoma (HCC) ULTRASOUND LIVER Cholangiocarcinoma (HCC) RECONSTRUCTION PORTAL VEIN Cholangiocarcinoma (HCC) documented as of this encounter Visit Diagnoses Not on filedocumented in this encounter Additional Health Concerns Infection Onset Date Last Indicated Resolved Time Protective Environment 11/07/2022 11/07/2022 documented as of this encounter Care Teams Mate Chief Relationship Specialty Start Date End Date Mark Colorado M.D. [address] [place] [phone] PCP - General Family Medicine 11/09/22 documented as of this encounter
--- OUTSIDE RECORDS SUMMARY | 2023-11-05 22:08 | XMS_ITS | Encounter Summary ---
Author Organization [facility] Address [address] [place] [address] Care Team Providers Care Tenter Frame Operator Name Role Phone Mark Colorado M.D. Primary Care Provider [phone] Reason for Referral * Outpatient (Routine) Specialty Diagnoses / Procedures Referred By Contac t Referred To Contact Oncology RST Formerly [facility] [address] [place] [address] [facility] Referral ID Status Reason Start Date Expiration Date Visits Re quested Visits Authorized * Outpatient (Routine) Specialty Diagnoses / Procedures Referred By Contac t Referred To Contact Oncology [facility] [address] [place] [address] [facility] Referral ID Status Reason Start Date Expiration Date Visits Re quested Visits Authorized * Outpatient (Routine) Specialty Diagnoses / Procedures Referred By Contac t Referred To Contact Oncology RST [address] [address] [facility] Referral ID Status Reason Start Date Expiration Date Visits Re quested Visits Authorized * Outpatient (Routine) Specialty Diagnoses / Procedures Referred By Contac t Referred To Contact Oncology [address] [address] [facility] Referral ID Status Reason Start Date Expiration Date Visits Re quested Visits Authorized * Outpatient (Routine) Specialty Diagnoses / Procedures Referred By Contac t Referred To Contact Oncology RST [address] [address] [facility] Referral ID Status Reason Start Date Expiration Date Visits Re quested Visits Authorized * Outpatient (Routine) Specialty Diagnoses / Procedures Referred By Contac t Referred To Contact Oncology [address] [address] [facility] Referral ID Status Reason Start Date Expiration Date Visits Re quested Visits Authorized * Outpatient (Routine) Specialty Diagnoses / Procedures Referred By Contac t Referred To Contact Oncology RST [address] [address] [facility] Referral ID Status Reason Start Date Expiration Date Visits Re quested Visits Authorized Encounter Details Date Type Department Care Team (Latest Contact Info) Description 09/26/2023 Orders Only Department of Oncology in [place], [place] [address] [place] [address] Omero Lopes Cholangiocarcinoma (HCC) (Primary Dx); Peritoneal Carcinomatosis (HCC); Neutropenia Chemotherapy Induced (HCC); 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 Current Drug Therapy, Chemotherapy Social History Tobacco Use Types Packs/Day Years Used Date Smoking Tobacco: Never Passive Smoke Exposure: Never Smokeless Tobacco: Never Alcohol Use Standard Drinks/Week Comments Not Currently 0 (1 standard drink = 0.6 oz pur e alcohol) occ [facility] Utilities Answer Date Recorded In the [...] living situation today? I [facility] a [facility] place to live 10/10/2023 Sex and Gender Information Value Date Recorded Sex Assigned at Male 09/10/2022 12:02 PM CDT Gender Identity Male 09/10/2022 12:02 PM CDT Sexual Orientation Straight 09/10/2022 12 :02 PM CDT documented as of this encounter Plan of Treatment Upcoming Encounters Date Type Department Care Team (Latest Contact Info) Description 11/07/2023 3:15 PM CDT Clinical Communication Virtual Review in [place], [place] [address] [place] [address] 11/15/2023 6:40 AM CDT Lab Department of Laboratory Medicine and Pathology, [facility], in [address] [phone] Loyda Lennon M.D. [address] [place] [phone] 11/15/2023 8:20 AM CDT Office Visit Department of Oncology in [address] [phone] Manjit Velasquez, KAYLEE, C.N.P., D.N.P. [address] [place] [phone] 11/15/2023 9:30 AM CDT Comprehensive Visit Department of Palliative Care in [place], [place] [address] [place] [phone] Patty Gomez APRN, C.N.P., M.S.N. [address] [place] [phone] 11/15/2023 2:15 PM CDT Infusion Department of Oncology in [place], [place] [address] [place] [phone] Loyda Lennon M.D. [address] [place] [phone] 11/22/2023 7:30 AM CDT Lab Department of Oncology in [address] [phone] Loyda Lennon M.D. [address] [place] [phone] 11/22/2023 8:45 AM CDT Infusion Department of Oncology in [address] [phone] Loyda Lennon M.D. [address] [place] [phone] 11/28/2023 3:30 PM CDT Clinical Communication Virtual Review in [place], [place] [address] [place] [address] 11/29/2023 9:00 AM CDT Procedure visit Department of Urology in [address] [phone] Mark Colorado M.D. [address] [place] [address] 11/29/2023 11:20 AM CDT Lab Department of Laboratory Medicine and Pathology, [facility], in [place], [place] [address] [place] [phone] Loyda Lennon M.D. [address] [place] [phone] 11/29/2023 11:30 AM CDT Lab Department of Oncology in [place], [place] [address] [place] [phone] Loyda Lennon M.D. [address] [place] [phone] 11/29/2023 1:00 PM CDT Infusion Department of Oncology in [place], [place] [address] [place] [phone] Loyda Lennon M.D. [address] [place] [phone] 12/03/2023 1:45 PM CDT Comprehensive Visit Department of Urology in [address] [phone] Mona Egan P.A.-C. [address] [place] [phone] 12/05/2023 1:20 PM CDT Comprehensive Visit Department of Oncology in [place], [place] [address] [place] [phone] Letty Kate M.D. [address] [place] [phone] 12/10/2023 3:00 PM CDT Clinical Communication Virtual Review in [place], [place] [address] [place] [address] 12/10/2023 3:30 PM CDT Procedure visit Department of Urology in [place], [place] [address] [place] [phone] Mark Colorado M.D. [address] [place] [address] 12/12/2023 3:45 PM CDT Appointment Department of Radiology, [facility], in [place], [place] [address] [place] [phone] Na Hernandez M.D., Ph.D. [address] [place] [phone] 12/13/2023 6:00 AM CDT Lab Department of Laboratory Medicine and Pathology, [facility] in [place], [place] [address] [place] [phone] Loyda Lennon M.D. [address] [place] [phone] 12/13/2023 6:20 AM CDT Lab Department of Infusion Therapy in [place], [place] [address] [place] [phone] Loyda Lennon M.D. [address] [place] [phone] 12/13/2023 11:10 AM CDT Office Visit Department of Oncology in [place], [place] [address] [place] [phone] Na Hernandez M.D., Ph.D. [address] [place] [phone] 12/13/2023 1:00 PM CDT Infusion Department of Oncology in [place], [place] [address] [place] [phone] Loyda Lennon M.D. [address] [place] [phone] 12/20/2023 9:20 AM CDT Lab Department of Infusion Therapy in [place], [place] [address] [place] [phone] Loyda Lennon M.D. [address] [place] [phone] 12/20/2023 10:30 AM CDT Infusion Department of Oncology in [place], [place] [address] [place] [phone] Loyda Lennon M.D. [address] [place] [phone] 12/25/2023 10:30 AM CDT Appointment Division of Gastroenterology in [address] [phone] Na Hernandez M.D., Ph.D. [address] [place] [phone] 12/27/2023 10:15 AM CDT Lab Department of Oncology in [place], [place] [address] [place] [phone] Loyda Lennon M.D. [address] [place] [phone] 12/27/2023 10:30 AM CDT Lab Department of Laboratory Medicine and Pathology, [facility] in [place], [place] [address] [place] [phone] Loyda Lennon M.D. [address] [place] [phone] 12/27/2023 11:45 AM CDT Infusion Department of Oncology in [place], [place] [address] [place] [phone] Loyda Lennon M.D. [address] [place] [phone] 01/03/2024 1:00 PM CDT Clinical Communication Virtual Review in [place], [place] [address] [place] [address] 01/10/2024 8:00 AM CDT Lab Department of Infusion Therapy in [address] [phone] Loyda Lennon M.D. [address] [place] [phone] 01/10/2024 8:20 AM CDT Lab Department of Laboratory Medicine and Pathology, [facility], in [address] [phone] Loyda Lennon M.D. [address] [place] [phone] 01/10/2024 10:30 AM CDT Office Visit Department of Oncology in [address] [phone] Na Hernandez M.D., Ph.D. [address] [place] [phone] 01/10/2024 11:45 AM CDT Infusion Department of Oncology in [address] [phone] Loyda Lennon M.D. [address] [place] [phone] 01/17/2024 8:45 AM CDT Lab Department of Oncology in [address] [phone] Loyda Lennon M.D. [address] [place] [phone] 01/17/2024 10:00 AM CDT Infusion Department of Oncology in [place], [place] [address] [place] [phone] Loyda Lennon M.D. [address] [place] [phone] 01/24/2024 8:00 AM CDT Lab Department of Laboratory Medicine and Pathology, [facility] in [place], [place] [address] [place] [phone] Loyda Lennon M.D. [address] [place] [phone] 01/24/2024 8:15 AM CDT Lab Department of Oncology in [place], [place] [address] [place] [phone] Loyda Lennon M.D. [address] [place] [phone] 01/24/2024 9:15 AM CDT Infusion Department of Oncology in [place], [place] [address] [place] [phone] Loyda Lennon M.D. [address] [place] [phone] Scheduled Orders Name Type Priority Associated Diagnoses Orde r Schedule CBC with Differential, Blood Lab Routine Cholangiocarcinoma (HCC) Peritoneal Carcinomatosis (HCC) Neutropenia Chemotherapy Induced (HCC) 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 Current Drug Therapy, Chemotherapy Expected: 02/07/2024, Expires: 02/06/2025 Comprehensive Metabolic Panel Lab Routine Cholangiocarcinoma (HCC) Peritoneal Carcinomatosis (HCC) Neutropenia Chemotherapy Induced (HCC) 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 Current Drug Therapy, Chemotherapy Expected: 02/07/2024, Expires: 02/06/2025 LD (Lactate Dehydrogenase) Lab Routine Cholangiocarcinoma (HCC) Peritoneal Carcinomatosis (HCC) Neutropenia Chemotherapy Induced (HCC) Mcc Current Drug Therapy, Chemotherapy Expected: 02/07/2024, Expires: 02/06/2025 Uric Acid Lab Routine Cholangiocarcinoma (HCC) Peritoneal Carcinomatosis (HCC) Neutropenia Chemotherapy Induced (HCC) Mcc Current Drug Therapy, Chemotherapy Expected: 02/07/2024, Expires: 02/06/2025 Magnesium Lab Routine Cholangiocarcinoma (HCC) Peritoneal Carcinomatosis (HCC) Neutropenia Chemotherapy Induced (HCC) Mcc Current Drug Therapy, Chemotherapy Expected: 02/07/2024, Expires: 02/06/2025 Phosphorus Inorganic Lab Routine Cholangiocarcinoma (HCC) Peritoneal Carcinomatosis (HCC) Neutropenia Chemotherapy Induced (HCC) 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 Current Drug Therapy, Chemotherapy Expected: 02/07/2024, Expires: 02/06/2025 Amylase, Total Lab Routine Cholangiocarcinoma (HCC) Peritoneal Carcinomatosis (HCC) Neutropenia Chemotherapy Induced (HCC) Mcc Current Drug Therapy, Chemotherapy Expected: 02/07/2024, Expires: 02/06/2025 Lipase Lab Routine Cholangiocarcinoma (HCC) Peritoneal Carcinomatosis (HCC) Neutropenia Chemotherapy Induced (HCC) Mcc Current Drug Therapy, Chemotherapy Expected: 02/07/2024, Expires: 02/06/2025 Troponin I, High Sensitivity Lab Routine Cholangiocarcinoma (HCC) Peritoneal Carcinomatosis (HCC) Neutropenia Chemotherapy Induced (HCC) Mcc Current Drug Therapy, Chemotherapy Expected: 02/07/2024, Expires: 02/06/2025 NT-Pro B-Type Natriuretic Peptide (BNP) Lab Routine Cholangiocarcinoma (HCC) Peritoneal Carcinomatosis (HCC) Neutropenia Chemotherapy Induced (HCC) Mcc Current Drug Therapy, Chemotherapy Expected: 02/07/2024, Expires: 02/06/2025 Prothrombin Time (PT) Lab Routine Cholangiocarcinoma (HCC) Peritoneal Carcinomatosis (HCC) Neutropenia Chemotherapy Induced (HCC) Mcc Current Drug Therapy, Chemotherapy Expected: 02/07/2024, Expires: 02/06/2025 APTT (Activated Partial Thromboplastin Time) Lab Routine Cholangiocarcinoma (HCC) Peritoneal Carcinomatosis (HCC) Neutropenia Chemotherapy Induced (HCC) 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 Current Drug Therapy, Chemotherapy Expected: 02/07/2024, Expires: 02/06/2025 Urinalysis Dipstick with Microscopic, Research Lab Routine Cholangiocarcinoma (HCC) Peritoneal Carcinomatosis (HCC) Neutropenia Chemotherapy Induced (HCC) 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 Current Drug Therapy, Chemotherapy Expected: 02/07/2024, Expires: 02/06/2025 CBC with Differential, Blood Lab Routine Cholangiocarcinoma (HCC) Peritoneal Carcinomatosis (HCC) Neutropenia Chemotherapy Induced (HCC) 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 Current Drug Therapy, Chemotherapy Expected: 02/14/2024, Expires: 02/13/2025 CBC with Differential, Blood Lab Routine Cholangiocarcinoma (HCC) Peritoneal Carcinomatosis (HCC) Neutropenia Chemotherapy Induced (HCC) Mcc Current Drug Therapy, Chemotherapy Expected: 02/21/2024, Expires: 02/20/2025 Comprehensive Metabolic Panel Lab Routine Cholangiocarcinoma (HCC) Peritoneal Carcinomatosis (HCC) Neutropenia Chemotherapy Induced (HCC) 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 Current Drug Therapy, Chemotherapy Expected: 02/21/2024, Expires: 02/20/2025 LD (Lactate Dehydrogenase) Lab Routine Cholangiocarcinoma (HCC) Peritoneal Carcinomatosis (HCC) Neutropenia Chemotherapy Induced (HCC) Mcc Current Drug Therapy, Chemotherapy Expected: 02/21/2024, Expires: 02/20/2025 Uric Acid Lab Routine Cholangiocarcinoma (HCC) Peritoneal Carcinomatosis (HCC) Neutropenia Chemotherapy Induced (HCC) 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 Current Drug Therapy, Chemotherapy Expected: 02/21/2024, Expires: 02/20/2025 Magnesium Lab Routine Cholangiocarcinoma (HCC) Peritoneal Carcinomatosis (HCC) Neutropenia Chemotherapy Induced (HCC) 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 Current Drug Therapy, Chemotherapy Expected: 02/21/2024, Expires: 02/20/2025 Phosphorus Inorganic Lab Routine Cholangiocarcinoma (HCC) Peritoneal Carcinomatosis (HCC) Neutropenia Chemotherapy Induced (HCC) 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 Current Drug Therapy, Chemotherapy Expected: 02/21/2024, Expires: 02/20/2025 Amylase, Total Lab Routine Cholangiocarcinoma (HCC) Peritoneal Carcinomatosis (HCC) Neutropenia Chemotherapy Induced (HCC) Mcc Current Drug Therapy, Chemotherapy Expected: 02/21/2024, Expires: 02/20/2025 Lipase Lab Routine Cholangiocarcinoma (HCC) Peritoneal Carcinomatosis (HCC) Neutropenia Chemotherapy Induced (HCC) 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 Current Drug Therapy, Chemotherapy Expected: 02/21/2024, Expires: 02/20/2025 Troponin I, High Sensitivity Lab Routine Cholangiocarcinoma (HCC) Peritoneal Carcinomatosis (HCC) Neutropenia Chemotherapy Induced (HCC) 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 Current Drug Therapy, Chemotherapy Expected: 02/21/2024, Expires: 02/20/2025 NT-Pro B-Type Natriuretic Peptide (BNP) Lab Routine Cholangiocarcinoma (HCC) Peritoneal Carcinomatosis (HCC) Neutropenia Chemotherapy Induced (HCC) 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 Current Drug Therapy, Chemotherapy Expected: 02/21/2024, Expires: 02/20/2025 Urinalysis Dipstick with Microscopic, Research Lab Routine Cholangiocarcinoma (HCC) Peritoneal Carcinomatosis (HCC) Neutropenia Chemotherapy Induced (HCC) Mcc Current Drug Therapy, Chemotherapy Expected: 02/21/2024, Expires: 02/20/2025 CBC with Differential, Blood Lab Routine Cholangiocarcinoma (HCC) Peritoneal Carcinomatosis (HCC) Neutropenia Chemotherapy Induced (HCC) Mcc Current Drug Therapy, Chemotherapy Expected: 03/06/2024, Expires: 03/06/2025 Comprehensive Metabolic Panel Lab Routine Cholangiocarcinoma (HCC) Peritoneal Carcinomatosis (HCC) Neutropenia Chemotherapy Induced (HCC) Mcc Current Drug Therapy, Chemotherapy Expected: 03/06/2024, Expires: 03/06/2025 LD (Lactate Dehydrogenase) Lab Routine Cholangiocarcinoma (HCC) Peritoneal Carcinomatosis (HCC) Neutropenia Chemotherapy Induced (HCC) Mcc Current Drug Therapy, Chemotherapy Expected: 03/06/2024, Expires: 03/06/2025 Uric Acid Lab Routine Cholangiocarcinoma (HCC) Peritoneal Carcinomatosis (HCC) Neutropenia Chemotherapy Induced (HCC) Mcc Current Drug Therapy, Chemotherapy Expected: 03/06/2024, Expires: 03/06/2025 Magnesium Lab Routine Cholangiocarcinoma (HCC) Peritoneal Carcinomatosis (HCC) Neutropenia Chemotherapy Induced (HCC) Mcc Current Drug Therapy, Chemotherapy Expected: 03/06/2024, Expires: 03/06/2025 Phosphorus Inorganic Lab Routine Cholangiocarcinoma (HCC) Peritoneal Carcinomatosis (HCC) Neutropenia Chemotherapy Induced (HCC) Mcc Current Drug Therapy, Chemotherapy Expected: 03/06/2024, Expires: 03/06/2025 Amylase, Total Lab Routine Cholangiocarcinoma (HCC) Peritoneal Carcinomatosis (HCC) Neutropenia Chemotherapy Induced (HCC) 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 Current Drug Therapy, Chemotherapy Expected: 03/06/2024, Expires: 03/06/2025 Lipase Lab Routine Cholangiocarcinoma (HCC) Peritoneal Carcinomatosis (HCC) Neutropenia Chemotherapy Induced (HCC) Mcc Current Drug Therapy, Chemotherapy Expected: 03/06/2024, Expires: 03/06/2025 Troponin I, High Sensitivity Lab Routine Cholangiocarcinoma (HCC) Peritoneal Carcinomatosis (HCC) Neutropenia Chemotherapy Induced (HCC) Mcc Current Drug Therapy, Chemotherapy Expected: 03/06/2024, Expires: 03/06/2025 NT-Pro B-Type Natriuretic Peptide (BNP) Lab Routine Cholangiocarcinoma (HCC) Peritoneal Carcinomatosis (HCC) Neutropenia Chemotherapy Induced (HCC) Mcc Current Drug Therapy, Chemotherapy Expected: 03/06/2024, Expires: 03/06/2025 Prothrombin Time (PT) Lab Routine Cholangiocarcinoma (HCC) Peritoneal Carcinomatosis (HCC) Neutropenia Chemotherapy Induced (HCC) 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 Current Drug Therapy, Chemotherapy Expected: 03/06/2024, Expires: 03/06/2025 APTT (Activated Partial Thromboplastin Time) Lab Routine Cholangiocarcinoma (HCC) Peritoneal Carcinomatosis (HCC) Neutropenia Chemotherapy Induced (HCC) Mcc Current Drug Therapy, Chemotherapy Expected: 03/06/2024, Expires: 03/06/2025 Urinalysis Dipstick with Microscopic, Research Lab Routine Cholangiocarcinoma (HCC) Peritoneal Carcinomatosis (HCC) Neutropenia Chemotherapy Induced (HCC) Mcc Current Drug Therapy, Chemotherapy Expected: 03/06/2024, Expires: 03/06/2025 CBC with Differential, Blood Lab Routine Cholangiocarcinoma (HCC) Peritoneal Carcinomatosis (HCC) Neutropenia Chemotherapy Induced (HCC) 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 Current Drug Therapy, Chemotherapy Expected: 03/13/2024, Expires: 03/13/2025 CBC with Differential, Blood Lab Routine Cholangiocarcinoma (HCC) Peritoneal Carcinomatosis (HCC) Neutropenia Chemotherapy Induced (HCC) Mcc Current Drug Therapy, Chemotherapy Expected: 03/20/2024, Expires: 03/20/2025 Comprehensive Metabolic Panel Lab Routine Cholangiocarcinoma (HCC) Peritoneal Carcinomatosis (HCC) Neutropenia Chemotherapy Induced (HCC) Mcc Current Drug Therapy, Chemotherapy Expected: 03/20/2024, Expires: 03/20/2025 LD (Lactate Dehydrogenase) Lab Routine Cholangiocarcinoma (HCC) Peritoneal Carcinomatosis (HCC) Neutropenia Chemotherapy Induced (HCC) 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 Current Drug Therapy, Chemotherapy Expected: 03/20/2024, Expires: 03/20/2025 Uric Acid Lab Routine Cholangiocarcinoma (HCC) Peritoneal Carcinomatosis (HCC) Neutropenia Chemotherapy Induced (HCC) 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 Current Drug Therapy, Chemotherapy Expected: 03/20/2024, Expires: 03/20/2025 Magnesium Lab Routine Cholangiocarcinoma (HCC) Peritoneal Carcinomatosis (HCC) Neutropenia Chemotherapy Induced (HCC) 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 Current Drug Therapy, Chemotherapy Expected: 03/20/2024, Expires: 03/20/2025 Phosphorus Inorganic Lab Routine Cholangiocarcinoma (HCC) Peritoneal Carcinomatosis (HCC) Neutropenia Chemotherapy Induced (HCC) Mcc Current Drug Therapy, Chemotherapy Expected: 03/20/2024, Expires: 03/20/2025 Amylase, Total Lab Routine Cholangiocarcinoma (HCC) Peritoneal Carcinomatosis (HCC) Neutropenia Chemotherapy Induced (HCC) Mcc Current Drug Therapy, Chemotherapy Expected: 03/20/2024, Expires: 03/20/2025 Lipase Lab Routine Cholangiocarcinoma (HCC) Peritoneal Carcinomatosis (HCC) Neutropenia Chemotherapy Induced (HCC) 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 Current Drug Therapy, Chemotherapy Expected: 03/20/2024, Expires: 03/20/2025 Troponin I, High Sensitivity Lab Routine Cholangiocarcinoma (HCC) Peritoneal Carcinomatosis (HCC) Neutropenia Chemotherapy Induced (HCC) Mcc Current Drug Therapy, Chemotherapy Expected: 03/20/2024, Expires: 03/20/2025 NT-Pro B-Type Natriuretic Peptide (BNP) Lab Routine Cholangiocarcinoma (HCC) Peritoneal Carcinomatosis (HCC) Neutropenia Chemotherapy Induced (HCC) 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 Current Drug Therapy, Chemotherapy Expected: 03/20/2024, Expires: 03/20/2025 Urinalysis Dipstick with Microscopic, Research Lab Routine Cholangiocarcinoma (HCC) Peritoneal Carcinomatosis (HCC) Neutropenia Chemotherapy Induced (HCC) 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 Current Drug Therapy, Chemotherapy Expected: 03/20/2024, Expires: 03/20/2025 CBC with Differential, Blood Lab Routine Cholangiocarcinoma (HCC) Peritoneal Carcinomatosis (HCC) Neutropenia Chemotherapy Induced (HCC) 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 Current Drug Therapy, Chemotherapy Expected: 04/03/2024, Expires: 04/03/2025 Comprehensive Metabolic Panel Lab Routine Cholangiocarcinoma (HCC) Peritoneal Carcinomatosis (HCC) Neutropenia Chemotherapy Induced (HCC) Mcc Current Drug Therapy, Chemotherapy Expected: 04/03/2024, Expires: 04/03/2025 LD (Lactate Dehydrogenase) Lab Routine Cholangiocarcinoma (HCC) Peritoneal Carcinomatosis (HCC) Neutropenia Chemotherapy Induced (HCC) Mcc Current Drug Therapy, Chemotherapy Expected: 04/03/2024, Expires: 04/03/2025 Uric Acid Lab Routine Cholangiocarcinoma (HCC) Peritoneal Carcinomatosis (HCC) Neutropenia Chemotherapy Induced (HCC) Mcc Current Drug Therapy, Chemotherapy Expected: 04/03/2024, Expires: 04/03/2025 Magnesium Lab Routine Cholangiocarcinoma (HCC) Peritoneal Carcinomatosis (HCC) Neutropenia Chemotherapy Induced (HCC) 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 Current Drug Therapy, Chemotherapy Expected: 04/03/2024, Expires: 04/03/2025 Phosphorus Inorganic Lab Routine Cholangiocarcinoma (HCC) Peritoneal Carcinomatosis (HCC) Neutropenia Chemotherapy Induced (HCC) Mcc Current Drug Therapy, Chemotherapy Expected: 04/03/2024, Expires: 04/03/2025 Amylase, Total Lab Routine Cholangiocarcinoma (HCC) Peritoneal Carcinomatosis (HCC) Neutropenia Chemotherapy Induced (HCC) 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 Current Drug Therapy, Chemotherapy Expected: 04/03/2024, Expires: 04/03/2025 Lipase Lab Routine Cholangiocarcinoma (HCC) Peritoneal Carcinomatosis (HCC) Neutropenia Chemotherapy Induced (HCC) Mcc Current Drug Therapy, Chemotherapy Expected: 04/03/2024, Expires: 04/03/2025 Troponin I, High Sensitivity Lab Routine Cholangiocarcinoma (HCC) Peritoneal Carcinomatosis (HCC) Neutropenia Chemotherapy Induced (HCC) 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 Current Drug Therapy, Chemotherapy Expected: 04/03/2024, Expires: 04/03/2025 NT-Pro B-Type Natriuretic Peptide (BNP) Lab Routine Cholangiocarcinoma (HCC) Peritoneal Carcinomatosis (HCC) Neutropenia Chemotherapy Induced (HCC) 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 Current Drug Therapy, Chemotherapy Expected: 04/03/2024, Expires: 04/03/2025 Prothrombin Time (PT) Lab Routine Cholangiocarcinoma (HCC) Peritoneal Carcinomatosis (HCC) Neutropenia Chemotherapy Induced (HCC) 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 Current Drug Therapy, Chemotherapy Expected: 04/03/2024, Expires: 04/03/2025 APTT (Activated Partial Thromboplastin Time) Lab Routine Cholangiocarcinoma (HCC) Peritoneal Carcinomatosis (HCC) Neutropenia Chemotherapy Induced (HCC) Mcc Current Drug Therapy, Chemotherapy Expected: 04/03/2024, Expires: 04/03/2025 Urinalysis Dipstick with Microscopic, Research Lab Routine Cholangiocarcinoma (HCC) Peritoneal Carcinomatosis (HCC) Neutropenia Chemotherapy Induced (HCC) Mcc Current Drug Therapy, Chemotherapy Expected: 04/03/2024, Expires: 04/03/2025 CBC with Differential, Blood Lab Routine Cholangiocarcinoma (HCC) Peritoneal Carcinomatosis (HCC) Neutropenia Chemotherapy Induced (HCC) [facility] Current Drug Therapy, Chemotherapy Expected: 04/10/2024, Expires: 04/10/2025 CBC with Differential, Blood Lab Routine Cholangiocarcinoma (HCC) Peritoneal Carcinomatosis (HCC) Neutropenia Chemotherapy Induced (HCC) 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 Current Drug Therapy, Chemotherapy Expected: 04/17/2024, Expires: 04/17/2025 Comprehensive Metabolic Panel Lab Routine Cholangiocarcinoma (HCC) Peritoneal Carcinomatosis (HCC) Neutropenia Chemotherapy Induced (HCC) 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 Current Drug Therapy, Chemotherapy Expected: 04/17/2024, Expires: 04/17/2025 LD (Lactate Dehydrogenase) Lab Routine Cholangiocarcinoma (HCC) Peritoneal Carcinomatosis (HCC) Neutropenia Chemotherapy Induced (HCC) 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 Current Drug Therapy, Chemotherapy Expected: 04/17/2024, Expires: 04/17/2025 Uric Acid Lab Routine Cholangiocarcinoma (HCC) Peritoneal Carcinomatosis (HCC) Neutropenia Chemotherapy Induced (HCC) 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 Current Drug Therapy, Chemotherapy Expected: 04/17/2024, Expires: 04/17/2025 Magnesium Lab Routine Cholangiocarcinoma (HCC) Peritoneal Carcinomatosis (HCC) Neutropenia Chemotherapy Induced (HCC) [facility] Current Drug Therapy, Chemotherapy Expected: 04/17/2024, Expires: 04/17/2025 Phosphorus Inorganic Lab Routine Cholangiocarcinoma (HCC) Peritoneal Carcinomatosis (HCC) Neutropenia Chemotherapy Induced (HCC) [facility] Current Drug Therapy, Chemotherapy Expected: 04/17/2024, Expires: 04/17/2025 Amylase, Total Lab Routine Cholangiocarcinoma (HCC) Peritoneal Carcinomatosis (HCC) Neutropenia Chemotherapy Induced (HCC) [facility] Current Drug Therapy, Chemotherapy Expected: 04/17/2024, Expires: 04/17/2025 Lipase Lab Routine Cholangiocarcinoma (HCC) Peritoneal Carcinomatosis (HCC) Neutropenia Chemotherapy Induced (HCC) [facility] Current Drug Therapy, Chemotherapy Expected: 04/17/2024, Expires: 04/17/2025 Troponin I, High Sensitivity Lab Routine Cholangiocarcinoma (HCC) Peritoneal Carcinomatosis (HCC) Neutropenia Chemotherapy Induced (HCC) [facility] Current Drug Therapy, Chemotherapy Expected: 04/17/2024, Expires: 04/17/2025 NT-Pro B-Type Natriuretic Peptide (BNP) Lab Routine Cholangiocarcinoma (HCC) Peritoneal Carcinomatosis (HCC) Neutropenia Chemotherapy Induced (HCC) [facility] Current Drug Therapy, Chemotherapy Expected: 04/17/2024, Expires: 04/17/2025 Urinalysis Dipstick with Microscopic, Research Lab Routine Cholangiocarcinoma (HCC) Peritoneal Carcinomatosis (HCC) Neutropenia Chemotherapy Induced (HCC) 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 Current Drug Therapy, Chemotherapy Expected: 04/17/2024, Expires: 04/17/2025 CBC with Differential, Blood Lab Routine Cholangiocarcinoma (HCC) Peritoneal Carcinomatosis (HCC) Neutropenia Chemotherapy Induced (HCC) [facility] Current Drug Therapy, Chemotherapy Expected: 05/01/2024, Expires: 05/01/2025 Comprehensive Metabolic Panel Lab Routine Cholangiocarcinoma (HCC) Peritoneal Carcinomatosis (HCC) Neutropenia Chemotherapy Induced (HCC) 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 Current Drug Therapy, Chemotherapy Expected: 05/01/2024, Expires: 05/01/2025 LD (Lactate Dehydrogenase) Lab Routine Cholangiocarcinoma (HCC) Peritoneal Carcinomatosis (HCC) Neutropenia Chemotherapy Induced (HCC) 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 Current Drug Therapy, Chemotherapy Expected: 05/01/2024, Expires: 05/01/2025 Uric Acid Lab Routine Cholangiocarcinoma (HCC) Peritoneal Carcinomatosis (HCC) Neutropenia Chemotherapy Induced (HCC) 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 Current Drug Therapy, Chemotherapy Expected: 05/01/2024, Expires: 05/01/2025 Magnesium Lab Routine Cholangiocarcinoma (HCC) Peritoneal Carcinomatosis (HCC) Neutropenia Chemotherapy Induced (HCC) 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 Current Drug Therapy, Chemotherapy Expected: 05/01/2024, Expires: 05/01/2025 Phosphorus Inorganic Lab Routine Cholangiocarcinoma (HCC) Peritoneal Carcinomatosis (HCC) Neutropenia Chemotherapy Induced (HCC) [facility] Current Drug Therapy, Chemotherapy Expected: 05/01/2024, Expires: 05/01/2025 Amylase, Total Lab Routine Cholangiocarcinoma (HCC) Peritoneal Carcinomatosis (HCC) Neutropenia Chemotherapy Induced (HCC) [facility] Current Drug Therapy, Chemotherapy Expected: 05/01/2024, Expires: 05/01/2025 Lipase Lab Routine Cholangiocarcinoma (HCC) Peritoneal Carcinomatosis (HCC) Neutropenia Chemotherapy Induced (HCC) 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 Current Drug Therapy, Chemotherapy Expected: 05/01/2024, Expires: 05/01/2025 Troponin I, High Sensitivity Lab Routine Cholangiocarcinoma (HCC) Peritoneal Carcinomatosis (HCC) Neutropenia Chemotherapy Induced (HCC) [facility] Current Drug Therapy, Chemotherapy Expected: 05/01/2024, Expires: 05/01/2025 NT-Pro B-Type Natriuretic Peptide (BNP) Lab Routine Cholangiocarcinoma (HCC) Peritoneal Carcinomatosis (HCC) Neutropenia Chemotherapy Induced (HCC) [facility] Current Drug Therapy, Chemotherapy Expected: 05/01/2024, Expires: 05/01/2025 Prothrombin Time (PT) Lab Routine Cholangiocarcinoma (HCC) Peritoneal Carcinomatosis (HCC) Neutropenia Chemotherapy Induced (HCC) [facility] Current Drug Therapy, Chemotherapy Expected: 05/01/2024, Expires: 05/01/2025 APTT (Activated Partial Thromboplastin Time) Lab Routine Cholangiocarcinoma (HCC) Peritoneal Carcinomatosis (HCC) Neutropenia Chemotherapy Induced (HCC) 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 Current Drug Therapy, Chemotherapy Expected: 05/01/2024, Expires: 05/01/2025 Urinalysis Dipstick with Microscopic, Research Lab Routine Cholangiocarcinoma (HCC) Peritoneal Carcinomatosis (HCC) Neutropenia Chemotherapy Induced (HCC) 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 Current Drug Therapy, Chemotherapy Expected: 05/01/2024, Expires: 05/01/2025 CBC with Differential, Blood Lab Routine Cholangiocarcinoma (HCC) Peritoneal Carcinomatosis (HCC) Neutropenia Chemotherapy Induced (HCC) 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 Current Drug Therapy, Chemotherapy Expected: 05/08/2024, Expires: 05/08/2025 CBC with Differential, Blood Lab Routine Cholangiocarcinoma (HCC) Peritoneal Carcinomatosis (HCC) Neutropenia Chemotherapy Induced (HCC) 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 Current Drug Therapy, Chemotherapy Expected: 05/15/2024, Expires: 05/15/2025 Comprehensive Metabolic Panel Lab Routine Cholangiocarcinoma (HCC) Peritoneal Carcinomatosis (HCC) Neutropenia Chemotherapy Induced (HCC) [facility] Current Drug Therapy, Chemotherapy Expected: 05/15/2024, Expires: 05/15/2025 LD (Lactate Dehydrogenase) Lab Routine Cholangiocarcinoma (HCC) Peritoneal Carcinomatosis (HCC) Neutropenia Chemotherapy Induced (HCC) [facility] Current Drug Therapy, Chemotherapy Expected: 05/15/2024, Expires: 05/15/2025 Uric Acid Lab Routine Cholangiocarcinoma (HCC) Peritoneal Carcinomatosis (HCC) Neutropenia Chemotherapy Induced (HCC) [facility] Current Drug Therapy, Chemotherapy Expected: 05/15/2024, Expires: 05/15/2025 Magnesium Lab Routine Cholangiocarcinoma (HCC) Peritoneal Carcinomatosis (HCC) Neutropenia Chemotherapy Induced (HCC) 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 Current Drug Therapy, Chemotherapy Expected: 05/15/2024, Expires: 05/15/2025 Phosphorus Inorganic Lab Routine Cholangiocarcinoma (HCC) Peritoneal Carcinomatosis (HCC) Neutropenia Chemotherapy Induced (HCC) [facility] Current Drug Therapy, Chemotherapy Expected: 05/15/2024, Expires: 05/15/2025 Amylase, Total Lab Routine Cholangiocarcinoma (HCC) Peritoneal Carcinomatosis (HCC) Neutropenia Chemotherapy Induced (HCC) 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 Current Drug Therapy, Chemotherapy Expected: 05/15/2024, Expires: 05/15/2025 Lipase Lab Routine Cholangiocarcinoma (HCC) Peritoneal Carcinomatosis (HCC) Neutropenia Chemotherapy Induced (HCC) [facility] Current Drug Therapy, Chemotherapy Expected: 05/15/2024, Expires: 05/15/2025 Troponin I, High Sensitivity Lab Routine Cholangiocarcinoma (HCC) Peritoneal Carcinomatosis (HCC) Neutropenia Chemotherapy Induced (HCC) [facility] Current Drug Therapy, Chemotherapy Expected: 05/15/2024, Expires: 05/15/2025 NT-Pro B-Type Natriuretic Peptide (BNP) Lab Routine Cholangiocarcinoma (HCC) Peritoneal Carcinomatosis (HCC) Neutropenia Chemotherapy Induced (HCC) [facility] Current Drug Therapy, Chemotherapy Expected: 05/15/2024, Expires: 05/15/2025 Urinalysis Dipstick with Microscopic, Research Lab Routine Cholangiocarcinoma (HCC) Peritoneal Carcinomatosis (HCC) Neutropenia Chemotherapy Induced (HCC) [facility] Current Drug Therapy, Chemotherapy Expected: 05/15/2024, Expires: 05/15/2025 CBC with Differential, Blood Lab Routine Cholangiocarcinoma (HCC) Peritoneal Carcinomatosis (HCC) Neutropenia Chemotherapy Induced (HCC) [facility] Current Drug Therapy, Chemotherapy Expected: 11/15/2023, Expires: 11/14/2024 Comprehensive Metabolic Panel Lab Routine Cholangiocarcinoma (HCC) Peritoneal Carcinomatosis (HCC) Neutropenia Chemotherapy Induced (HCC) 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 Current Drug Therapy, Chemotherapy Expected: 11/15/2023, Expires: 11/14/2024 LD (Lactate Dehydrogenase) Lab Routine Cholangiocarcinoma (HCC) Peritoneal Carcinomatosis (HCC) Neutropenia Chemotherapy Induced (HCC) [facility] Current Drug Therapy, Chemotherapy Expected: 11/15/2023, Expires: 11/14/2024 Uric Acid Lab Routine Cholangiocarcinoma (HCC) Peritoneal Carcinomatosis (HCC) Neutropenia Chemotherapy Induced (HCC) [facility] Current Drug Therapy, Chemotherapy Expected: 11/15/2023, Expires: 11/14/2024 Magnesium Lab Routine Cholangiocarcinoma (HCC) Peritoneal Carcinomatosis (HCC) Neutropenia Chemotherapy Induced (HCC) [facility] Current Drug Therapy, Chemotherapy Expected: 11/15/2023, Expires: 11/14/2024 Phosphorus Inorganic Lab Routine Cholangiocarcinoma (HCC) Peritoneal Carcinomatosis (HCC) Neutropenia Chemotherapy Induced (HCC) [facility] Current Drug Therapy, Chemotherapy Expected: 11/15/2023, Expires: 11/14/2024 Amylase, Total Lab Routine Cholangiocarcinoma (HCC) Peritoneal Carcinomatosis (HCC) Neutropenia Chemotherapy Induced (HCC) [facility] Current Drug Therapy, Chemotherapy Expected: 11/15/2023, Expires: 11/14/2024 Lipase Lab Routine Cholangiocarcinoma (HCC) Peritoneal Carcinomatosis (HCC) Neutropenia Chemotherapy Induced (HCC) [facility] Current Drug Therapy, Chemotherapy Expected: 11/15/2023, Expires: 11/14/2024 Troponin I, High Sensitivity Lab Routine Cholangiocarcinoma (HCC) Peritoneal Carcinomatosis (HCC) Neutropenia Chemotherapy Induced (HCC) 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 Current Drug Therapy, Chemotherapy Expected: 11/15/2023, Expires: 11/14/2024 NT-Pro B-Type Natriuretic Peptide (BNP) Lab Routine Cholangiocarcinoma (HCC) Peritoneal Carcinomatosis (HCC) Neutropenia Chemotherapy Induced (HCC) [facility] Current Drug Therapy, Chemotherapy Expected: 11/15/2023, Expires: 11/14/2024 Prothrombin Time (PT) Lab Routine Cholangiocarcinoma (HCC) Peritoneal Carcinomatosis (HCC) Neutropenia Chemotherapy Induced (HCC) 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 Current Drug Therapy, Chemotherapy Expected: 11/15/2023, Expires: 11/14/2024 APTT (Activated Partial Thromboplastin Time) Lab Routine Cholangiocarcinoma (HCC) Peritoneal Carcinomatosis (HCC) Neutropenia Chemotherapy Induced (HCC) [facility] Current Drug Therapy, Chemotherapy Expected: 11/15/2023, Expires: 11/14/2024 Urinalysis Dipstick with Microscopic, Research Lab Routine Cholangiocarcinoma (HCC) Peritoneal Carcinomatosis (HCC) Neutropenia Chemotherapy Induced (HCC) [facility] Current Drug Therapy, Chemotherapy Expected: 11/15/2023, Expires: 11/14/2024 CBC with Differential, Blood Lab Routine Cholangiocarcinoma (HCC) Peritoneal Carcinomatosis (HCC) Neutropenia Chemotherapy Induced (HCC) [facility] Current Drug Therapy, Chemotherapy Expected: 11/22/2023, Expires: 11/21/2024 CBC with Differential, Blood Lab Routine Cholangiocarcinoma (HCC) Peritoneal Carcinomatosis (HCC) Neutropenia Chemotherapy Induced (HCC) [facility] Current Drug Therapy, Chemotherapy Expected: 11/29/2023, Expires: 11/28/2024 Comprehensive Metabolic Panel Lab Routine Cholangiocarcinoma (HCC) Peritoneal Carcinomatosis (HCC) Neutropenia Chemotherapy Induced (HCC) [facility] Current Drug Therapy, Chemotherapy Expected: 11/29/2023, Expires: 11/28/2024 LD (Lactate Dehydrogenase) Lab Routine Cholangiocarcinoma (HCC) Peritoneal Carcinomatosis (HCC) Neutropenia Chemotherapy Induced (HCC) [facility] Current Drug Therapy, Chemotherapy Expected: 11/29/2023, Expires: 11/28/2024 Uric Acid Lab Routine Cholangiocarcinoma (HCC) Peritoneal Carcinomatosis (HCC) Neutropenia Chemotherapy Induced (HCC) 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 Current Drug Therapy, Chemotherapy Expected: 11/29/2023, Expires: 11/28/2024 Magnesium Lab Routine Cholangiocarcinoma (HCC) Peritoneal Carcinomatosis (HCC) Neutropenia Chemotherapy Induced (HCC) 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 Current Drug Therapy, Chemotherapy Expected: 11/29/2023, Expires: 11/28/2024 Phosphorus Inorganic Lab Routine Cholangiocarcinoma (HCC) Peritoneal Carcinomatosis (HCC) Neutropenia Chemotherapy Induced (HCC) [facility] Current Drug Therapy, Chemotherapy Expected: 11/29/2023, Expires: 11/28/2024 Amylase, Total Lab Routine Cholangiocarcinoma (HCC) Peritoneal Carcinomatosis (HCC) Neutropenia Chemotherapy Induced (HCC) [facility] Current Drug Therapy, Chemotherapy Expected: 11/29/2023, Expires: 11/28/2024 Lipase Lab Routine Cholangiocarcinoma (HCC) Peritoneal Carcinomatosis (HCC) Neutropenia Chemotherapy Induced (HCC) 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 Current Drug Therapy, Chemotherapy Expected: 11/29/2023, Expires: 11/28/2024 Troponin I, High Sensitivity Lab Routine Cholangiocarcinoma (HCC) Peritoneal Carcinomatosis (HCC) Neutropenia Chemotherapy Induced (HCC) 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 Current Drug Therapy, Chemotherapy Expected: 11/29/2023, Expires: 11/28/2024 NT-Pro B-Type Natriuretic Peptide (BNP) Lab Routine Cholangiocarcinoma (HCC) Peritoneal Carcinomatosis (HCC) Neutropenia Chemotherapy Induced (HCC) [facility] Current Drug Therapy, Chemotherapy Expected: 11/29/2023, Expires: 11/28/2024 Urinalysis Dipstick with Microscopic, Research Lab Routine Cholangiocarcinoma (HCC) Peritoneal Carcinomatosis (HCC) Neutropenia Chemotherapy Induced (HCC) 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 Current Drug Therapy, Chemotherapy Expected: 11/29/2023, Expires: 11/28/2024 CBC with Differential, Blood Lab Routine Cholangiocarcinoma (HCC) Peritoneal Carcinomatosis (HCC) Neutropenia Chemotherapy Induced (HCC) [facility] Current Drug Therapy, Chemotherapy Expected: 12/13/2023, Expires: 12/12/2024 Comprehensive Metabolic Panel Lab Routine Cholangiocarcinoma (HCC) Peritoneal Carcinomatosis (HCC) Neutropenia Chemotherapy Induced (HCC) 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 Current Drug Therapy, Chemotherapy Expected: 12/13/2023, Expires: 12/12/2024 LD (Lactate Dehydrogenase) Lab Routine Cholangiocarcinoma (HCC) Peritoneal Carcinomatosis (HCC) Neutropenia Chemotherapy Induced (HCC) 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 Current Drug Therapy, Chemotherapy Expected: 12/13/2023, Expires: 12/12/2024 Uric Acid Lab Routine Cholangiocarcinoma (HCC) Peritoneal Carcinomatosis (HCC) Neutropenia Chemotherapy Induced (HCC) 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 Current Drug Therapy, Chemotherapy Expected: 12/13/2023, Expires: 12/12/2024 Magnesium Lab Routine Cholangiocarcinoma (HCC) Peritoneal Carcinomatosis (HCC) Neutropenia Chemotherapy Induced (HCC) [facility] Current Drug Therapy, Chemotherapy Expected: 12/13/2023, Expires: 12/12/2024 Phosphorus Inorganic Lab Routine Cholangiocarcinoma (HCC) Peritoneal Carcinomatosis (HCC) Neutropenia Chemotherapy Induced (HCC) [facility] Current Drug Therapy, Chemotherapy Expected: 12/13/2023, Expires: 12/12/2024 Amylase, Total Lab Routine Cholangiocarcinoma (HCC) Peritoneal Carcinomatosis (HCC) Neutropenia Chemotherapy Induced (HCC) 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 Current Drug Therapy, Chemotherapy Expected: 12/13/2023, Expires: 12/12/2024 Lipase Lab Routine Cholangiocarcinoma (HCC) Peritoneal Carcinomatosis (HCC) Neutropenia Chemotherapy Induced (HCC) 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 Current Drug Therapy, Chemotherapy Expected: 12/13/2023, Expires: 12/12/2024 Troponin I, High Sensitivity Lab Routine Cholangiocarcinoma (HCC) Peritoneal Carcinomatosis (HCC) Neutropenia Chemotherapy Induced (HCC) [facility] Current Drug Therapy, Chemotherapy Expected: 12/13/2023, Expires: 12/12/2024 NT-Pro B-Type Natriuretic Peptide (BNP) Lab Routine Cholangiocarcinoma (HCC) Peritoneal Carcinomatosis (HCC) Neutropenia Chemotherapy Induced (HCC) 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 Current Drug Therapy, Chemotherapy Expected: 12/13/2023, Expires: 12/12/2024 Prothrombin Time (PT) Lab Routine Cholangiocarcinoma (HCC) Peritoneal Carcinomatosis (HCC) Neutropenia Chemotherapy Induced (HCC) 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 Current Drug Therapy, Chemotherapy Expected: 12/13/2023, Expires: 12/12/2024 APTT (Activated Partial Thromboplastin Time) Lab Routine Cholangiocarcinoma (HCC) Peritoneal Carcinomatosis (HCC) Neutropenia Chemotherapy Induced (HCC) 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 Current Drug Therapy, Chemotherapy Expected: 12/13/2023, Expires: 12/12/2024 Urinalysis Dipstick with Microscopic, Research Lab Routine Cholangiocarcinoma (HCC) Peritoneal Carcinomatosis (HCC) Neutropenia Chemotherapy Induced (HCC) 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 Current Drug Therapy, Chemotherapy Expected: 12/13/2023, Expires: 12/12/2024 CBC with Differential, Blood Lab Routine Cholangiocarcinoma (HCC) Peritoneal Carcinomatosis (HCC) Neutropenia Chemotherapy Induced (HCC) 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 Current Drug Therapy, Chemotherapy Expected: 12/20/2023, Expires: 12/19/2024 CBC with Differential, Blood Lab Routine Cholangiocarcinoma (HCC) Peritoneal Carcinomatosis (HCC) Neutropenia Chemotherapy Induced (HCC) [facility] Current Drug Therapy, Chemotherapy Expected: 12/27/2023, Expires: 12/26/2024 Comprehensive Metabolic Panel Lab Routine Cholangiocarcinoma (HCC) Peritoneal Carcinomatosis (HCC) Neutropenia Chemotherapy Induced (HCC) [facility] Current Drug Therapy, Chemotherapy Expected: 12/27/2023, Expires: 12/26/2024 LD (Lactate Dehydrogenase) Lab Routine Cholangiocarcinoma (HCC) Peritoneal Carcinomatosis (HCC) Neutropenia Chemotherapy Induced (HCC) [facility] Current Drug Therapy, Chemotherapy Expected: 12/27/2023, Expires: 12/26/2024 Uric Acid Lab Routine Cholangiocarcinoma (HCC) Peritoneal Carcinomatosis (HCC) Neutropenia Chemotherapy Induced (HCC) [facility] Current Drug Therapy, Chemotherapy Expected: 12/27/2023, Expires: 12/26/2024 Magnesium Lab Routine Cholangiocarcinoma (HCC) Peritoneal Carcinomatosis (HCC) Neutropenia Chemotherapy Induced (HCC) 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 Current Drug Therapy, Chemotherapy Expected: 12/27/2023, Expires: 12/26/2024 Phosphorus Inorganic Lab Routine Cholangiocarcinoma (HCC) Peritoneal Carcinomatosis (HCC) Neutropenia Chemotherapy Induced (HCC) [facility] Current Drug Therapy, Chemotherapy Expected: 12/27/2023, Expires: 12/26/2024 Amylase, Total Lab Routine Cholangiocarcinoma (HCC) Peritoneal Carcinomatosis (HCC) Neutropenia Chemotherapy Induced (HCC) [facility] Current Drug Therapy, Chemotherapy Expected: 12/27/2023, Expires: 12/26/2024 Lipase Lab Routine Cholangiocarcinoma (HCC) Peritoneal Carcinomatosis (HCC) Neutropenia Chemotherapy Induced (HCC) [facility] Current Drug Therapy, Chemotherapy Expected: 12/27/2023, Expires: 12/26/2024 Troponin I, High Sensitivity Lab Routine Cholangiocarcinoma (HCC) Peritoneal Carcinomatosis (HCC) Neutropenia Chemotherapy Induced (HCC) [facility] Current Drug Therapy, Chemotherapy Expected: 12/27/2023, Expires: 12/26/2024 NT-Pro B-Type Natriuretic Peptide (BNP) Lab Routine Cholangiocarcinoma (HCC) Peritoneal Carcinomatosis (HCC) Neutropenia Chemotherapy Induced (HCC) 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 Current Drug Therapy, Chemotherapy Expected: 12/27/2023, Expires: 12/26/2024 Urinalysis Dipstick with Microscopic, Research Lab Routine Cholangiocarcinoma (HCC) Peritoneal Carcinomatosis (HCC) Neutropenia Chemotherapy Induced (HCC) [facility] Current Drug Therapy, Chemotherapy Expected: 12/27/2023, Expires: 12/26/2024 CBC with Differential, Blood Lab Routine Cholangiocarcinoma (HCC) Peritoneal Carcinomatosis (HCC) Neutropenia Chemotherapy Induced (HCC) [facility] Current Drug Therapy, Chemotherapy Expected: 01/10/2024, Expires: 01/09/2025 Comprehensive Metabolic Panel Lab Routine Cholangiocarcinoma (HCC) Peritoneal Carcinomatosis (HCC) Neutropenia Chemotherapy Induced (HCC) 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 Current Drug Therapy, Chemotherapy Expected: 01/10/2024, Expires: 01/09/2025 LD (Lactate Dehydrogenase) Lab Routine Cholangiocarcinoma (HCC) Peritoneal Carcinomatosis (HCC) Neutropenia Chemotherapy Induced (HCC) [facility] Current Drug Therapy, Chemotherapy Expected: 01/10/2024, Expires: 01/09/2025 Uric Acid Lab Routine Cholangiocarcinoma (HCC) Peritoneal Carcinomatosis (HCC) Neutropenia Chemotherapy Induced (HCC) 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 Current Drug Therapy, Chemotherapy Expected: 01/10/2024, Expires: 01/09/2025 Magnesium Lab Routine Cholangiocarcinoma (HCC) Peritoneal Carcinomatosis (HCC) Neutropenia Chemotherapy Induced (HCC) 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 Current Drug Therapy, Chemotherapy Expected: 01/10/2024, Expires: 01/09/2025 Phosphorus Inorganic Lab Routine Cholangiocarcinoma (HCC) Peritoneal Carcinomatosis (HCC) Neutropenia Chemotherapy Induced (HCC) 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 Current Drug Therapy, Chemotherapy Expected: 01/10/2024, Expires: 01/09/2025 Amylase, Total Lab Routine Cholangiocarcinoma (HCC) Peritoneal Carcinomatosis (HCC) Neutropenia Chemotherapy Induced (HCC) 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 Current Drug Therapy, Chemotherapy Expected: 01/10/2024, Expires: 01/09/2025 Lipase Lab Routine Cholangiocarcinoma (HCC) Peritoneal Carcinomatosis (HCC) Neutropenia Chemotherapy Induced (HCC) 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 Current Drug Therapy, Chemotherapy Expected: 01/10/2024, Expires: 01/09/2025 Troponin I, High Sensitivity Lab Routine Cholangiocarcinoma (HCC) Peritoneal Carcinomatosis (HCC) Neutropenia Chemotherapy Induced (HCC) [facility] Current Drug Therapy, Chemotherapy Expected: 01/10/2024, Expires: 01/09/2025 NT-Pro B-Type Natriuretic Peptide (BNP) Lab Routine Cholangiocarcinoma (HCC) Peritoneal Carcinomatosis (HCC) Neutropenia Chemotherapy Induced (HCC) [facility] Current Drug Therapy, Chemotherapy Expected: 01/10/2024, Expires: 01/09/2025 Prothrombin Time (PT) Lab Routine Cholangiocarcinoma (HCC) Peritoneal Carcinomatosis (HCC) Neutropenia Chemotherapy Induced (HCC) [facility] Current Drug Therapy, Chemotherapy Expected: 01/10/2024, Expires: 01/09/2025 APTT (Activated Partial Thromboplastin Time) Lab Routine Cholangiocarcinoma (HCC) Peritoneal Carcinomatosis (HCC) Neutropenia Chemotherapy Induced (HCC) [facility] Current Drug Therapy, Chemotherapy Expected: 01/10/2024, Expires: 01/09/2025 Urinalysis Dipstick with Microscopic, Research Lab Routine Cholangiocarcinoma (HCC) Peritoneal Carcinomatosis (HCC) Neutropenia Chemotherapy Induced (HCC) 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 Current Drug Therapy, Chemotherapy Expected: 01/10/2024, Expires: 01/09/2025 CBC with Differential, Blood Lab Routine Cholangiocarcinoma (HCC) Peritoneal Carcinomatosis (HCC) Neutropenia Chemotherapy Induced (HCC) 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 Current Drug Therapy, Chemotherapy Expected: 01/17/2024, Expires: 01/16/2025 CBC with Differential, Blood Lab Routine Cholangiocarcinoma (HCC) Peritoneal Carcinomatosis (HCC) Neutropenia Chemotherapy Induced (HCC) [facility] Current Drug Therapy, Chemotherapy Expected: 01/24/2024, Expires: 01/23/2025 Comprehensive Metabolic Panel Lab Routine Cholangiocarcinoma (HCC) Peritoneal Carcinomatosis (HCC) Neutropenia Chemotherapy Induced (HCC) 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 Current Drug Therapy, Chemotherapy Expected: 01/24/2024, Expires: 01/23/2025 LD (Lactate Dehydrogenase) Lab Routine Cholangiocarcinoma (HCC) Peritoneal Carcinomatosis (HCC) Neutropenia Chemotherapy Induced (HCC) [facility] Current Drug Therapy, Chemotherapy Expected: 01/24/2024, Expires: 01/23/2025 Uric Acid Lab Routine Cholangiocarcinoma (HCC) Peritoneal Carcinomatosis (HCC) Neutropenia Chemotherapy Induced (HCC) [facility] Current Drug Therapy, Chemotherapy Expected: 01/24/2024, Expires: 01/23/2025 Magnesium Lab Routine Cholangiocarcinoma (HCC) Peritoneal Carcinomatosis (HCC) Neutropenia Chemotherapy Induced (HCC) 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 Current Drug Therapy, Chemotherapy Expected: 01/24/2024, Expires: 01/23/2025 Phosphorus Inorganic Lab Routine Cholangiocarcinoma (HCC) Peritoneal Carcinomatosis (HCC) Neutropenia Chemotherapy Induced (HCC) 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 Current Drug Therapy, Chemotherapy Expected: 01/24/2024, Expires: 01/23/2025 Amylase, Total Lab Routine Cholangiocarcinoma (HCC) Peritoneal Carcinomatosis (HCC) Neutropenia Chemotherapy Induced (HCC) 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 Current Drug Therapy, Chemotherapy Expected: 01/24/2024, Expires: 01/23/2025 Lipase Lab Routine Cholangiocarcinoma (HCC) Peritoneal Carcinomatosis (HCC) Neutropenia Chemotherapy Induced (HCC) [facility] Current Drug Therapy, Chemotherapy Expected: 01/24/2024, Expires: 01/23/2025 Troponin I, High Sensitivity Lab Routine Cholangiocarcinoma (HCC) Peritoneal Carcinomatosis (HCC) Neutropenia Chemotherapy Induced (HCC) 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 Current Drug Therapy, Chemotherapy Expected: 01/24/2024, Expires: 01/23/2025 NT-Pro B-Type Natriuretic Peptide (BNP) Lab Routine Cholangiocarcinoma (HCC) Peritoneal Carcinomatosis (HCC) Neutropenia Chemotherapy Induced (HCC) 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 Current Drug Therapy, Chemotherapy Expected: 01/24/2024, Expires: 01/23/2025 Urinalysis Dipstick with Microscopic, Research Lab Routine Cholangiocarcinoma (HCC) Peritoneal Carcinomatosis (HCC) Neutropenia Chemotherapy Induced (HCC) Mcc Current Drug Therapy, Chemotherapy Expected: 01/24/2024, Expires: 01/23/2025 Scheduled Procedures Name Priority Associated Diagnoses Date/Ti me HEPATECTOMY RESECTION LIVER Cholangiocarcinoma (HCC) ULTRASOUND LIVER Cholangiocarcinoma (HCC) RECONSTRUCTION PORTAL VEIN Cholangiocarcinoma (HCC) Scheduled Referrals Name Type Priority Associated Diagnoses Orde r Schedule Oncology office visit (clinic) Outpatient Referral Routine Cholangiocarcinoma (HCC) Peritoneal Carcinomatosis (HCC) Neutropenia Chemotherapy Induced (HCC) Mcc Current Drug Therapy, Chemotherapy Expected: 02/07/2024, Expires: 02/06/2025 Oncology office visit (clinic) Outpatient Referral Routine Cholangiocarcinoma (HCC) Peritoneal Carcinomatosis (HCC) Neutropenia Chemotherapy Induced (HCC) 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 Current Drug Therapy, Chemotherapy Expected: 03/06/2024, Expires: 03/06/2025 Oncology office visit (clinic) Outpatient Referral Routine Cholangiocarcinoma (HCC) Peritoneal Carcinomatosis (HCC) Neutropenia Chemotherapy 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 (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) 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 Current Drug Therapy, Chemotherapy Expected: 04/03/2024, Expires: 04/03/2025 Oncology office visit (clinic) Outpatient Referral Routine Cholangiocarcinoma (HCC) Peritoneal Carcinomatosis (HCC) Neutropenia Chemotherapy Induced (HCC) 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 Current Drug Therapy, Chemotherapy Expected: 05/01/2024, Expires: 05/01/2025 Oncology office visit (clinic) Outpatient Referral Routine Cholangiocarcinoma (HCC) Peritoneal Carcinomatosis (HCC) Neutropenia Chemotherapy Induced (HCC) Mcc Current Drug Therapy, Chemotherapy Expected: 11/15/2023, Expires: 11/14/2024 Oncology office visit (clinic) Outpatient Referral Routine Cholangiocarcinoma (HCC) Peritoneal Carcinomatosis (HCC) Neutropenia Chemotherapy Induced (HCC) Mcc Current Drug Therapy, Chemotherapy Expected: 12/13/2023, Expires: 12/12/2024 Oncology office visit (clinic) Outpatient Referral Routine Cholangiocarcinoma (HCC) Peritoneal Carcinomatosis (HCC) Neutropenia Chemotherapy Induced (HCC) Mcc Current Drug Therapy, Chemotherapy Expected: 01/10/2024, Expires: 01/09/2025 documented as of this encounter Visit Diagnoses Diagnosis Cholangiocarcinoma (HCC)- Primary Peritoneal Carcinomatosis (HCC) Neutropenia Chemotherapy Induced (HCC) Mcc Current Drug Therapy, Chemotherapy documented in this encounter Additional Health Concerns Infection Onset Date Last Indicated Resolved Time Protective Environment 11/07/2022 11/07/2022 documented as of this encounter Care Teams Tenter Frame Operator Relationship Specialty Start Date End Date Mark Colorado M.D. [address] [place] [address] PCP - General Family Medicine 11/09/22 documented as of this encounter
--- OUTSIDE RECORDS SUMMARY | 2023-11-05 22:08 | XMS_ITS | Encounter Summary ---
Author Organization [facility] Address [address] [place] [address] Care Team Providers Care Curbstone Setter Name Role Phone Mark Colorado M.D. Primary Care Provider [phone] Reason for Referral * Outpatient (Routine) - Authorized Specialty Diagnoses / Procedures Referred By Contreema t Referred To Contact Palliative Medicine Diagnoses Cholangiocarcinoma (HCC) Na Hernandez M.D., Ph.D. [address] [place] [address] [facility] Referral ID Status Reason Start Date Expiration Date V isits Requested Visits Authorized [id number] Authorized 10/01/2023 04/01/2025 1 1 Reason for Visit * Outpatient (Routine) - Closed Specialty Diagnoses / Procedures Referred By Contreema t Referred To Contact Oncology Diagnoses Cholangiocarcinoma (HCC) Na Hernandez M.D., Ph.D. [address] [place] [address] [facility] Referral ID Status Reason Start Date Expiration Date Visits Re quested Visits Authorized [id number] Closed 08/09/2023 02/07/2025 1 1 Encounter Details Date Type Department Care Team (Latest Contact Info) Description 10/01/2023 1:20 PM CDT Office Visit Department of Oncology in [place], [place] [address] [place] [phone] Na Hernandez M.D., Ph.D. [address] [place] [phone] Cholangiocarcinoma (HCC) (Primary Dx) Social History Tobacco Use Types Packs/Day Years Used Date Smoking Tobacco: Never Passive Smoke Exposure: Never Smokeless Tobacco: Never Alcohol Use Standard Drinks/Week Comments Not Currently 0 (1 standard drink = 0.6 oz pur e alcohol) occ [facility] Utilities Answer Date Recorded In the past 12 months has e [employer], gas, oil, or water [employer] threatened to shut off services in your [...] your living situation today? I have a [facility] place to live 10/10/2023 Sex and Gender Information Value Date Recorded Sex Assigned at Male 09/10/2022 12:02 PM CDT Gender Identity Male 09/10/2022 12:02 PM CDT Sexual Orientation Straight 09/10/2022 12 :02 PM CDT documented as of this encounter Last Filed Vital Signs Vital Sign Reading Time Taken Comments Blood Pressure 136/68 10/01/2023 1:21 PM CDT Pulse 62 10/01/2023 1:21 PM CDT Temperature 36.1 ??C (97 ??F) 10/01/2023 1:21 PM CDT Respiratory Rate 16 10/01/2023 1:21 PM CDT Oxygen Saturation 100% 10/01/2023 1:21 PM CDT Inhaled Oxygen Concentration - - Weight 90 kg (198 lb 6.6 oz) 10/01/2023 1:21 PM CDT Height 182.8 cm (5' 11.97) 10/01/2023 1:21 PM C DT Body Mass Index 26.93 10/01/2023 1:21 PM CDT documented in this encounter Progress Notes * Na Hernandez M.D., Ph.D. - 10/01/2023 1:20 PM CDT SUBJECTIVE LOCAL ONCOLOGIST No care steam boiler fireman to display PRIMARY [place] ONCOLOGIST Na Hernandez M.D., Ph.D. CHIEF COMPLAINT / REASON FOR VISIT Jorge Luis Sepulveda is a 68 y.o. male who presents for follow-up of Metastatic cholangiocarcinoma Cancer Staging Cholangiocarcinoma (HCC) Staging form: Intrahepatic Bile Duct, AJCC 8th Edition - Clinical stage from 10/12/2022: Stage IB (cT1b, cN0, cM0) - Pathologic stage from 01/09/2023: Stage IV (pM1) Current Therapy: [facility] CTX-009-002 ( CTX-009 / PACLitaxel ) Current Disease Status: Stable Intent of Therapy: Palliative HISTORY OF PRESENT ILLNESS Oncology History Oncology [...] Genotyping POSITIVE Germline genetic testing in 2022; [employer] [facility] + RNA panel from [employer]. 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 One Variant of Uncertain Significance (VUS) identified in the BRCA1 gene, specifically c.3607C>G 06/18/2023 - Research Study Participant Research Study: A Study of CTX-009 in Combination With Paclitaxel in Adult Patients With Unresectable Advanced, Metastatic or Recurrent Biliary Tract Cancers (CENTRAL OFFICE MAINTAINER-002) ([id number]) Treatment Protocol: [facility] CTX-009-002 ( CTX-009 / PACLitaxel ) Interval history: Mr. Sepulveda is having more abdominal pain recently. The distribution is the same, across the lower abdomen. I had previously recommended increasing his dose of Dilaudid to 4 mg p.r.n., as he reported that 2 mg was not giving adequate pain relief anymore. He is currently taking 4 mg Dilaudid about twice per day. Increasing the dose did not make a very significant improvement in his pain. He particularly notes pain in the morning when he 1st wakes up, and it takes about 30 or 45 minutes for him to have pain relief after taking Dilaudid. He is also having more nausea. Zofran works well, but again it takes 20 minutes or so to help. He is now taking Zofran sometimes prior to meals in anticipation of nausea. He is using MiraLax daily to manage his bowel movements. He has some fluctuation with occasional constipation or soft stools, but he is managing it okay. He occasionally has small volume nosebleeds or bleeding from his gums. Episodes resolve without intervention. He has a red spot on his calf that he is wondering about. His neuropathy seems stable overall. He does have some new pain in the balls of his feet when he 1st wakes in the morning, that resolves with massage and moving around. Overall, he feels a little worn out from ongoing treatment. Functional status is stable. Medications and allergies reviewed. OBJECTIVE BP 136/68 (BP Location: Right arm, Patient Position: Sitting, Cuff Size: Large) Pulse 62 Temp 36.1 ??C (Tympanic) Resp 16 Ht 182.8 cm Wt 90 kg SpO2 100% BMI 26.93 kg/m?? PHYSICAL EXAMINATION General: Patient is well-appearing, in no acute distress. Ambulates on and off the exam table without difficulty. Skin: On the right calf there is a small, subcentimeter, superficial phlegmon centered on a hair follicle. Eyes: no scleral icterus. ENT: Moist oral mucosa, no mucositis or oral lesions noted. Heart: Regular rate & rhythm without murmurs, gallops or rubs. Lungs: Breathing comfortably on room air. Lungs clear to auscultation bilaterally. Abdomen: Soft, nondistended, mild tenderness to palpation in a band across the lower abdomen. Extremities: Warm and well perfused. No lower extremity edema. ECOG Performance Status: 1 LABORATORY DATA Lab data reviewed. No new labs. RADIOLOGICAL DATA CT Abdomen Pelvis with IV Contrast Result Date: 10/01/2023 Impression: 1. Stable perihilar cholangiocarcinoma. 2. Less conspicuous omental carcinomatosis, though mild increase in small amount of ascites. CT Chest with IV Contrast Result Date: 10/01/2023 Impression: 1. New tiny left pleural effusion. 2. Remainder of the chest CT findings are unchanged including tiny pulmonary nodules and mildly prominent thoracic lymph nodes. 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 Sepulveda is a 68-year-old man with metastatic intrahepatic cholangiocarcinoma. He was initially treated with gemcitabine/cisplatin/durvalumab beginning in October 2022, and progressed after 4 months with new, biopsy-proven peritoneal carcinomatosis. He enrolled on the CTX-009 clinical trial and wasrandomized to the paclitaxel control arm. He had progression of peritoneal carcinomatosis and crossed over to the experimental arm in May 2023. He returns to clinic for restaging following 4 cycles of treatment. Restaging scans show grossly stable disease, with stable size of the perihilar cholangiocarcinoma, and no significant change in peritoneal carcinomatosis. In the chest, there are a few subcentimeter pulmonary nodules and mildly prominent thoracic lymph nodes which are stable compared to prior. No CA 19-9 value is available at today's visit. Given stable disease, I recommended continuing treatment per the clinical trial protocol. For his nausea, we will try Zofran ODT to see if it provides quicker relief when used as needed. For his abdominal pain, we discussed that he would likely benefit from initiation of a long-acting opioid to avoid waking up with pain in the morning and provide more consistent pain relief. We also talked about the option of palliative care consult to address his multiple cancer-related symptoms and provide ongoing optimal supportive care. He is in agreement with palliative care consult. For nowhe will keep his pain regimen of Dilaudid 4 mg p.r.n., but could start a long-acting opioid if he is not able to get an appointment in the next few weeks. For the small, superficial phlegmon/folliculitis on the right calf, I recommended just putting warmcompresses on it and seeing if it resolves. We discussed that if it gets larger, erythematous, or painful, he should have it re-evaluated. We discussed that the small volume nosebleeds and bleeding from gums could be related to VEGF inhibitor therapy. Given that these are minor episodes that self resolve, we will continue to observe. Intent to Change Therapy: No ADMINISTRATIVE BILLING I spent 60 minutes face to face and non-face to face caring for the patient today. documented in this encounter Plan of Treatment Upcoming Encounters Date Type Department Care Team (Latest Contact Info) Description 11/07/2023 3:15 PM CDT Clinical Communication Virtual Review in [address] [phone] 11/15/2023 6:40 AM CDT Lab Department of Laboratory Medicine and Pathology, [facility], in [address] [phone] Loyda Lennon M.D. [address] [place] [phone] 11/15/2023 8:20 AM CDT Office Visit Department of Oncology in [address] [phone] Manjit Velasquez APRN, C.N.P., D.N.P. [address] [place] [phone] 11/15/2023 9:30 AM CDT Comprehensive Visit Department of Palliative Care in [address] [phone] Patty Gomez APRN, C.N.P., M.S.N. [address] [place] [phone] 11/15/2023 2:15 PM CDT Infusion Department of Oncology in [place], [place] [address] [place] [phone] Loyda Lennon M.D. [address] [place] [phone] 11/22/2023 7:30 AM CDT Lab Department of Oncology in [address] [phone] Loyda Lennon M.D. [address] [place] [phone] 11/22/2023 8:45 AM CDT Infusion Department of Oncology in [address] [phone] Loyda Lennon M.D. [address] [place] [place] [phone] 11/28/2023 3:30 PM CDT Clinical Communication Virtual Review in [address] [phone] 11/29/2023 9:00 AM CDT Procedure visit Department of Urology in [address] [phone] Mark Colorado M.D. [address] [place] [address] 11/29/2023 11:20 AM CDT Lab Department of Laboratory Medicine and Pathology, [facility], in [address] [phone] Loyda Lennon M.D. [address] [place] [phone] 11/29/2023 11:30 AM CDT Lab Department of Oncology in [place], [place] [address] [place] [phone] Loyda Lennon M.D. [address] [place] [place] [phone] 11/29/2023 1:00 PM CDT Infusion Department of Oncology in [place], [place] [address] [place] [phone] Loyda Lennon M.D. [address] [place] [place] [phone] 12/03/2023 1:45 PM CDT Comprehensive Visit Department of Urology in [place], [place] [address] [place] [phone] Mona Egan P.A.-C. [address] [place] [phone] 12/05/2023 1:20 PM CDT Comprehensive Visit Department of Oncology in [place], [place] [address] [place] [phone] Letty Kate M.D. [address] [place] [place] [phone] 12/10/2023 3:00 PM CDT Clinical Communication Virtual Review in [place], [place] [address] [place] [address] 12/10/2023 3:30 PM CDT Procedure visit Department of Urology in [place], [place] [address] [place] [phone] Mark Colorado M.D. [address] [place] [phone] 12/12/2023 3:45 PM CDT Appointment Department of Radiology, [facility], in [place], [place] [address] [place] [phone] Na Hernandez M.D., Ph.D. [address] [place] [place] [phone] 12/13/2023 6:00 AM CDT Lab Department of Laboratory Medicine and Pathology, [facility], in [place], [place] [address] [place] [phone] Loyda Lennon M.D. [address] [place] [place] [phone] 12/13/2023 6:20 AM CDT Lab Department of Infusion Therapy in [place], [place] [address] [place] [phone] Loyda Lennon M.D. [address] [place] [place] [phone] 12/13/2023 11:10 AM CDT Office Visit Department of Oncology in [place], [place] [address] [place] [phone] Na Hernandez M.D., Ph.D. [address] [place] [place] [phone] 12/13/2023 1:00 PM CDT Infusion Department of Oncology in [place], [place] [address] [place] [phone] Loyda Lennon M.D. [address] [place] [place] [phone] 12/20/2023 9:20 AM CDT Lab Department of Infusion Therapy in [place], [place] [address] [place] [phone] Loyda Lennon M.D. [address] [place] [phone] 12/20/2023 10:30 AM CDT Infusion Department of Oncology in [place], [place] [address] [place] [phone] Loyda Lennon M.D. [address] [place] [phone] 12/25/2023 10:30 AM CDT Appointment Division of Gastroenterology in [place], [place] [address] [place] [phone] Na Hernandez M.D., Ph.D. [address] [place] [place] [phone] 12/27/2023 10:15 AM CDT Lab Department of Oncology in [place], [place] [address] [place] [phone] Loyda Lennon M.D. [address] [place] [place] [phone] 12/27/2023 10:30 AM CDT Lab Department of Laboratory Medicine and Pathology, [facility] in [address] [phone] Loyda Lennon M.D. [address] [place] [phone] 12/27/2023 11:45 AM CDT Infusion Department of Oncology in [address] [phone] Loyda Lennon M.D. [address] [place] [phone] 01/03/2024 1:00 PM CDT Clinical Communication Virtual Review in [place], [place] [address] [place] [address] 01/10/2024 8:00 AM CDT Lab Department of Infusion Therapy in [address] [address] Loyda Lennon M.D. [address] [place] [place] [phone] 01/10/2024 8:20 AM CDT Lab Department of Laboratory Medicine and Pathology, [facility] in [place], [place] [address] [place] [phone] Loyda Lennon M.D. [address] [place] [place] [phone] 01/10/2024 10:30 AM CDT Office Visit Department of Oncology in [address] [phone] Na Hernandez M.D., Ph.D. [address] [place] [phone] 01/10/2024 11:45 AM CDT Infusion Department of Oncology in [place], [place] [address] [place] [phone] Loyda Lennon M.D. [address] [place] [place] [phone] 01/17/2024 8:45 AM CDT Lab Department of Oncology in [address] [phone] Loyda Lennon M.D. [address] [place] [phone] 01/17/2024 10:00 AM CDT Infusion Department of Oncology in [address] [phone] Loyda Lennon M.D. [address] [place] [phone] 01/24/2024 8:00 AM CDT Lab Department of Laboratory Medicine and Pathology, [facility], in [place], [place] [address] [place] [address] Loyda Lennon M.D. [address] [place] [phone] 01/24/2024 8:15 AM CDT Lab Department of Oncology in [place], [place] [address] [place] [address] Loyda Lennon M.D. [address] [place] [phone] 01/24/2024 9:15 AM CDT Infusion Department of Oncology in [place], [place] [address] [place] [address] Loyda Lennon M.D. [address] [place] [place] [phone] Scheduled Procedures Name Priority Associated Diagnoses Date/Ti me HEPATECTOMY RESECTION LIVER Cholangiocarcinoma (HCC) ULTRASOUND LIVER Cholangiocarcinoma (HCC) RECONSTRUCTION PORTAL VEIN Cholangiocarcinoma (HCC) Scheduled Referrals Name Type Priority Associated Diagnoses Order Schedule Palliative Medicine - General consult (clinic) Outpatient Referral Routine Cholangiocarcinoma (HCC) Expected: 10/01/2023, Expires: 12/31/2024 documented as of this encounter Procedures Procedure Name Priority Date/Time Associated Diagnosis Comments CARBOHYDRATE AG 19-9 (CA 19-9), S Routine 09/24/2023 7:19 AM CDT Cholangiocarcinoma (HCC) documented in this encounter Results * (ABNORMAL) Carbohydrate Antigen 19-9 (CA 19-9) (09/24/2023 7:19 AM CDT) Carbohydrate Ag 19-9, S 132(H) <35 U/mL 10/01/2023 6:00 PM CDT [facility] Comment: ----ADDITIONAL INFORMATION---- The testing method is an immunoenzymatic assay manufactured by [employer] and performed on the [employer]er[employer] 800. ? Values obtained with different assay methods or kits may be different and cannot be used interchangeably. ? Test results cannot be interpreted as absolute evidence for the presence or absence of malignant disease. Blood (Blood, Venous) 09/24/2023 7:19 AM CDT 10/01/2023 4:59 PM CDT Na Hernandez M.D., Ph.D. LAB BLOOD A DD-ON [facility] [address] [place] [address] [facility] [address] [place] [address] documented in this encounter Visit Diagnoses Diagnosis Cholangiocarcinoma (HCC)- Primary documented in this encounter Additional Health Concerns Infection Onset Date Last Indicated Resolved Time Protective Environment 11/07/2022 11/07/2022 documented as of this encounter Care Teams Curbstone Setter Relationship Specialty Start Date End Date Mark Colorado M.D. [address] [place] [phone] PCP - General Family Medicine 11/09/22 documented as of this encounter
--- OUTSIDE RECORDS SUMMARY | 2023-11-05 22:08 | XMS_ITS | Encounter Summary ---
Author Organization [facility] Address [address] [place] [address] Care Team Providers Care House Mover Supervisor Name Role Phone Mark Colorado M.D. Primary Care Provider [phone] Encounter Details Date Type Department Care Team (Late st Contact Info) Description 09/30/2023 Orders Only Department of Oncology in [place], [place] [address] [place] [address] Omero Lopes Social History Tobacco Use Types Packs/Day Years Used Date Smoking Tobacco: Never Passive Smoke Exposure: Never Smokeless Tobacco: Never Alcohol Use Standard Drinks/Week Comments Not Currently 0 (1 standard drink = 0.6 oz pur e alcohol) [facility] Utilities Answer Date Recorded In the past 12 months has [employer] gas, oil, or water [employer] threatened to shut off services in your [...] your living situation today? I have a [facility] place to live 10/10/2023 Sex and Gender Information Value Date Recorded Sex Assigned at Male 09/10/2022 12:02 PM CDT Gender Identity Male 09/10/2022 12:02 PM CDT Sexual Orientation Straight 09/10/2022 12 :02 PM CDT documented as of this encounter Plan of Treatment Upcoming Encounters Date Type Department Care Team (Latest Contact Info) Description 11/07/2023 3:15 PM CDT Clinical Communication Virtual Review in [place], [place] [address] [place] [address] 11/15/2023 6:40 AM CDT Lab Department of Laboratory Medicine and Pathology, [facility] in [address] [address] Loyda Lennon M.D. [address] [place] [phone] 11/15/2023 8:20 AM CDT Office Visit Department of Oncology in [address] [address] Manjit Velasquez APRN, C.N.P., D.N.P. [address] [place] [phone] 11/15/2023 9:30 AM CDT Comprehensive Visit Department of Palliative Care in [address] [address] Patty Gomez APRN, C.N.P., M.S.N. [address] [place] [phone] 11/15/2023 2:15 PM CDT Infusion Department of Oncology in [address] [address] Loyda Lennon M.D. [address] [place] [phone] 11/22/2023 7:30 AM CDT Lab Department of Oncology in [place], [place] [address] [place] [phone] Loyda Lennon M.D. [address] [place] [phone] 11/22/2023 8:45 AM CDT Infusion Department of Oncology in [place], [place] [address] [place] [phone] Loyda Lennon M.D. [address] [place] [phone] 11/28/2023 3:30 PM CDT Clinical Communication Virtual Review in [place], [place] [address] [place] [address] 11/29/2023 9:00 AM CDT Procedure visit Department of Urology in [place], [place] [address] [place] [phone] Mark Colorado M.D. [address] [place] [address] [place] [address] 11/29/2023 11:20 AM CDT Lab Department of Laboratory Medicine and Pathology, [facility], in [place], [place] [address] [place] [phone] Loyda Lennon M.D. [address] [place] [phone] 11/29/2023 11:30 AM CDT Lab Department of Oncology in [place], [place] [address] [place] [phone] Loyda Lennon M.D. [address] [place] [phone] 11/29/2023 1:00 PM CDT Infusion Department of Oncology in [place], [place] [address] [place] [phone] Loyda Lennon M.D. [address] [place] [phone] 12/03/2023 1:45 PM CDT Comprehensive Visit Department of Urology in [place], [place] [address] [place] [phone] Mona Egan P.A.-C. [address] [place] [phone] 12/05/2023 1:20 PM CDT Comprehensive Visit Department of Oncology in [place], [place] [address] [place] [phone] Letty Kate M.D. [address] [place] [phone] 12/10/2023 3:00 PM CDT Clinical Communication Virtual Review in [place], [place] [address] [place] [address] 12/10/2023 3:30 PM CDT Procedure visit Department of Urology in [place], [place] [address] [place] [phone] Mark Colorado M.D. [address] [place] [address] [place] [address] 12/12/2023 3:45 PM CDT Appointment Department of Radiology, [facility], in [place], [place] [address] [place] [phone] Na Hernandez M.D., Ph.D. [address] [place] [phone] 12/13/2023 6:00 AM CDT Lab Department of Laboratory Medicine and Pathology, [facility], in [place], [place] [address] [place] [phone] Loyda Lennon M.D. [address] [place] [phone] 12/13/2023 6:20 AM CDT Lab Department of Infusion Therapy in [place], [place] [address] [place] [phone] Loyda Lennon M.D. [address] [place] [phone] 12/13/2023 11:10 AM CDT Office Visit Department of Oncology in [place], [place] [address] [place] [phone] Na Hernandez M.D., Ph.D. [address] [place] [phone] 12/13/2023 1:00 PM CDT Infusion Department of Oncology in [place], [place] [address] [place] [phone] Loyda Lennon M.D. [address] [place] [phone] 12/20/2023 9:20 AM CDT Lab Department of Infusion Therapy in [place], [place] [address] [place] [phone] Loyda Lennon M.D. [address] [place] [phone] 12/20/2023 10:30 AM CDT Infusion Department of Oncology in [place], [place] [address] [place] [phone] Loyda Lennon M.D. [address] [place] [phone] 12/25/2023 10:30 AM CDT Appointment Division of Gastroenterology in [address] [address] Na Hernandez M.D., Ph.D. [address] [place] [phone] 12/27/2023 10:15 AM CDT Lab Department of Oncology in [address] [address] Loyda Lennon M.D. [address] [place] [phone] 12/27/2023 10:30 AM CDT Lab Department of Laboratory Medicine and Pathology, [address] [address] Loyda Lennon M.D. [address] [place] [phone] 12/27/2023 11:45 AM CDT Infusion Department of Oncology in [address] [address] Loyda Lennon M.D. [address] [place] [phone] 01/03/2024 1:00 PM CDT Clinical Communication Virtual Review in [place], [place] [address] [place] [address] 01/10/2024 8:00 AM CDT Lab Department of Infusion Therapy in [address] [address] Loyda Lennon M.D. [address] [place] [phone] 01/10/2024 8:20 AM CDT Lab Department of Laboratory Medicine and Pathology, [facility], [place] [address] [place] [address] Loyda Lennon M.D. [address] [place] [phone] 01/10/2024 10:30 AM CDT Office Visit Department of Oncology in [place], [place] [address] [place] [phone] Na Hernandez M.D., Ph.D. [address] [place] [phone] 01/10/2024 11:45 AM CDT Infusion Department of Oncology in [place], [place] [address] [place] [address] Loyda Lennon M.D. [address] [place] [phone] 01/17/2024 8:45 AM CDT Lab Department of Oncology in [place], [place] [address] [place] [address] Lyoda Lennon M.D. [address] [place] [phone] 01/17/2024 10:00 AM CDT Infusion Department of Oncology in [place], [place] [address] [place] [address] Loyda Lennon M.D. [address] [place] [phone] 01/24/2024 8:00 AM CDT Lab Department of Laboratory Medicine and Pathology, [facility], in [place], [place] [address] [place] [address] Loyda Lennon M.D. [address] [place] [phone] 01/24/2024 8:15 AM CDT Lab Department of Oncology in [place], [place] [address] [place] [address] Loyda Lennon M.D. [address] [place] [phone] 01/24/2024 9:15 AM CDT Infusion Department of Oncology in [place], [place] [address] [place] [address] Loyda Lennon M.D. [address] [place] [phone] Scheduled Procedures Name Priority Associated Diagnoses Date/Ti me HEPATECTOMY RESECTION LIVER Cholangiocarcinoma (HCC) ULTRASOUND LIVER Cholangiocarcinoma (HCC) RECONSTRUCTION PORTAL VEIN Cholangiocarcinoma (HCC) documented as of this encounter Visit Diagnoses Not on filedocumented in this encounter Additional Health Concerns Infection Onset Date Last Indicated Resolved Time Protective Environment 11/07/2022 11/07/2022 documented as of this encounter Care Teams House Mover Supervisor Relationship Specialty Start Date End Date Mark Colorado M.D. [address] [place] [address] PCP - General Family Medicine 11/09/22 documented as of this encounter
--- OUTSIDE RECORDS SUMMARY | 2023-11-05 22:08 | XMS_ITS | Encounter Summary ---
Author Organization [facility] Address [address] [place] [address] Care Team Providers Care Claim Analyst Name Role Phone Mark Colorado M.D. Primary Care Provider [phone] Reason for Referral * MRI/CAT/PET Scan (Routine) - Authorized Specialty Diagnoses / Procedures Referred By Chloe t Referred To Contact Radiology Diagnoses Cholangiocarcinoma (HCC) Procedures CT Abdomen Pelvis with IV Contrast Na Hernandez M.D., Ph.D. [address] [place] [address] [facility] Referral ID Status Reason Start Date Expiration Date V isits Requested Visits Authorized [id number] Authorized 10/02/2023 10/01/2024 1 1 * MRI/CAT/PET Scan (Routine) - Authorized Specialty Diagnoses / Procedures Referred By Chloe hinkle Referred To Contact Radiology Diagnoses Cholangiocarcinoma (HCC) Procedures CT Chest with IV Contrast Na Hernandez M.D., Ph.D. [address] [place] [address] [place] Referral ID Status Reason Start Date Expiration Date V isits Requested Visits Authorized [id number] Authorized 10/02/2023 10/01/2024 1 1 Encounter Details Date Type Department Care Team (Late st Contact Info) Description 10/01/2023 Orders Only Department of Oncology in [place], [place] [address] [place] [phone] Omero Lopes Peritoneal Carcinomatosis (HCC) (Primary Dx); Cholangiocarcinoma (HCC) Social History Tobacco Use Types Packs/Day Years Used Date Smoking Tobacco: Never Passive Smoke Exposure: Never Smokeless Tobacco: Never Alcohol Use Standard Drinks/Week Comments Not Currently 0 (1 standard drink = 0.6 oz pur e alcohol) occ [facility] Utilities Answer Date Recorded In the past 12 months has [employer], gas, oil, or water [employer] threatened to shut off services in your [...] your living situation today? I have a [facility] place to live 10/10/2023 Sex and Gender Information Value Date Recorded Sex Assigned at Male 09/10/2022 12:02 PM CDT Gender Identity Male 09/10/2022 12:02 PM CDT Sexual Orientation Straight 09/10/2022 12 :02 PM CDT documented as of this encounter Plan of Treatment Upcoming Encounters Date Type Department Care Team (Latest Contact Info) Description 11/07/2023 3:15 PM CDT Clinical Communication Virtual Review in [place], [place] [address] [place] [address] 11/15/2023 6:40 AM CDT Lab Department of Laboratory Medicine and Pathology, [facility], in [place], [place] [address] [place] [phone] Loyda Lennon M.D. [address] [place] [phone] 11/15/2023 8:20 AM CDT Office Visit Department of Oncology in [place], [place] [address] [place] [address] Manjit Velasquez APRN, C.N.P., D.N.P. [address] [place] [phone] 11/15/2023 9:30 AM CDT Comprehensive Visit Department of Palliative Care in [place], [place] [address] [place] [phone] Patty Gomez APRN, C.N.P., M.S.N. [address] [place] [phone] 11/15/2023 2:15 PM CDT Infusion Department of Oncology in [address] [address] Loyda Lennon M.D. [address] [place] [phone] 11/22/2023 7:30 AM CDT Lab Department of Oncology in [place], [place] [address] [place] [phone] Loyda Lennon M.D. [address] [place] [phone] 11/22/2023 8:45 AM CDT Infusion Department of Oncology in [address] [address] Loyda Lennon M.D. [address] [place] [address] 11/28/2023 3:30 PM CDT Clinical Communication Virtual Review in [place], [place] [address] [place] [address] 11/29/2023 9:00 AM CDT Procedure visit Department of Urology in [place], [place] [address] [place] [phone] Mark Colorado M.D. [address] [place] [address] [place] [address] 11/29/2023 11:20 AM CDT Lab Department of Laboratory Medicine and Pathology, [facility] in [place], [place] [address] [place] [phone] Loyda Lennon M.D. [address] [place] [phone] 11/29/2023 11:30 AM CDT Lab Department of Oncology in [place], [place] [address] [place] [phone] Loyda Lennon M.D. [address] [place] [phone] 11/29/2023 1:00 PM CDT Infusion Department of Oncology in [place], [place] [address] [place] [phone] Loyda Lennon M.D. [address] [place] [phone] 12/03/2023 1:45 PM CDT Comprehensive Visit Department of Urology in [place], [place] [address] [place] [phone] Mona Egan, PHoldenAKaterine [address] [place] [phone] 12/05/2023 1:20 PM CDT Comprehensive Visit Department of Oncology in [place], [place] [address] [place] [phone] Letty Kate M.D. [address] [place] [phone] 12/10/2023 3:00 PM CDT Clinical Communication Virtual Review in [place], [place] [address] [place] [address] 12/10/2023 3:30 PM CDT Procedure visit Department of Urology in [place], [place] [address] [place] [phone] Mark Colorado M.D. [address] [place] [address] [place] [address] 12/12/2023 3:45 PM CDT Appointment Department of Radiology, [facility], in [place], [place] [address] [place] [phone] Na Hernandez M.D., Ph.D. [address] [place] [phone] 12/13/2023 6:00 AM CDT Lab Department of Laboratory Medicine and Pathology, [facility], in [place], [place] [address] [place] [phone] Loyda Lennon M.D. [address] [place] [phone] 12/13/2023 6:20 AM CDT Lab Department of Infusion Therapy in [place], [place] [address] [place] [phone] Loyda Lennon M.D. [address] [place] [phone] 12/13/2023 11:10 AM CDT Office Visit Department of Oncology in [place], [place] [address] [place] [phone] Na Hernandez M.D., Ph.D. [address] [place] [phone] 12/13/2023 1:00 PM CDT Infusion Department of Oncology in [place], [place] [address] [place] [phone] Loyda Lennon M.D. [address] [place] [phone] 12/20/2023 9:20 AM CDT Lab Department of Infusion Therapy in [place], [place] [address] [place] [phone] Loyda Lennon M.D. [address] [place] [phone] 12/20/2023 10:30 AM CDT Infusion Department of Oncology in [place], [place] [address] [place] [phone] Loyda Lennon M.D. [address] [place] [phone] 12/25/2023 10:30 AM CDT Appointment Division of Gastroenterology in [address] [address] Na Hernandez M.D., Ph.D. [address] [place] [phone] 12/27/2023 10:15 AM CDT Lab Department of Oncology in [place], [place] [address] [place] [phone] Loyda Lennon M.D. [address] [place] [phone] 12/27/2023 10:30 AM CDT Lab Department of Laboratory Medicine and Pathology, [facility], in [place], [place] [address] [place] [phone] Loyda Lennon M.D. [address] [place] [phone] 12/27/2023 11:45 AM CDT Infusion Department of Oncology in [address] [address] Loyda Lennon M.D. [address] [place] [phone] 01/03/2024 1:00 PM CDT Clinical Communication Virtual Review in [address] [address] 01/10/2024 8:00 AM CDT Lab Department of Infusion Therapy in [address] [address] Loyad Lennon M.D. [address] [place] [phone] 01/10/2024 8:20 AM CDT Lab Department of Laboratory Medicine and Pathology, [facility], in [place], [place] [address] [place] [phone] Loyda Lennon M.D. [address] [place] [phone] 01/10/2024 10:30 AM CDT Office Visit Department of Oncology in [address] [address] Na Hernandez M.D., Ph.D. [address] [place] [phone] 01/10/2024 11:45 AM CDT Infusion Department of Oncology in [place], [place] [address] [place] [phone] Loyda Lennon M.D. [address] [place] [phone] 01/17/2024 8:45 AM CDT Lab Department of Oncology in [place], [place] [address] [place] [phone] Loyda Lennon M.D. [address] [place] [phone] 01/17/2024 10:00 AM CDT Infusion Department of Oncology in [place], [place] [address] [place] [phone] Loyda Lennon M.D. [address] [place] [phone] 01/24/2024 8:00 AM CDT Lab Department of Laboratory Medicine and Pathology, [facility], in [place], [place] [address] [place] [phone] Loyda Lennon M.D. [address] [place] [phone] 01/24/2024 8:15 AM CDT Lab Department of Oncology in [place], [place] [address] [place] [phone] Loyda Lennon M.D. [address] [place] [phone] 01/24/2024 9:15 AM CDT Infusion Department of Oncology in [place], [place] [address] [place] [phone] Loyda Lennon M.D. [address] [place] [phone] Scheduled Orders Name Type Priority Associated Diagnoses Orde r Schedule CT Chest with IV Contrast Imaging RAD - Routine (most inpatients and all outpatients) Cholangiocarcinoma (HCC) Expected: 12/03/2023, Expires: 12/31/2024 CT Abdomen Pelvis with IV Contrast Imaging RAD - Routine (most inpatients and all outpatients) Cholangiocarcinoma (HCC) Expected: 12/03/2023, Expires: 12/31/2024 Scheduled Procedures Name Priority Associated Diagnoses Date/Ti me HEPATECTOMY RESECTION LIVER Cholangiocarcinoma (HCC) ULTRASOUND LIVER Cholangiocarcinoma (HCC) RECONSTRUCTION PORTAL VEIN Cholangiocarcinoma (HCC) documented as of this encounter Visit Diagnoses Diagnosis Peritoneal Carcinomatosis (HCC)- Primary Cholangiocarcinoma (HCC) documented in this encounter Additional Health Concerns Infection Onset Date Last Indicated Resolved Time Protective Environment 11/07/2022 11/07/2022 documented as of this encounter Care Teams Claim Analyst Relationship Specialty Start Date End Date Mark Colorado M.D. [address] [place] [address] PCP - General Family Medicine 11/09/22 documented as of this encounter
--- OUTSIDE RECORDS SUMMARY | 2023-11-05 22:08 | XMS_ITS | Encounter Summary ---
Author Organization [facility] Address [address] [place] [address] Care Team Providers Care Storage Center Manager Name Role Phone Mark Colorado M.D. Primary Care Provider [phone] Reason for Referral * Outpatient (Routine) - Authorized Specialty Diagnoses / Procedures Referred By Contac t Referred To Contact Diagnoses Cholangiocarcinoma (HCC) Procedures FL Fluoro Less Than 1 Hour Yuko Pennington MPAS, P.A.-C. [address] [place] [address] [facility] Referral ID Status Reason Start Date Expiration Date V isits Requested Visits Authorized [id number] Authorized 10/08/2023 10/07/2024 1 1 * Outpatient (Routine) - Authorized Specialty Diagnoses / Procedures Referred By Contreema hinkle Referred To Contact Diagnoses Cholangiocarcinoma (HCC) Procedures ERCP Yuko Pennington MPAS, P.A.-C. [address] [place] [phone] [facility] Referral ID Status Reason Start Date Expiration Date V isits Requested Visits Authorized [id number] Authorized 10/08/2023 10/07/2024 1 1 Reason for Visit * Episode Based Medications (Routine) - Authorized Specialty Diagnoses / Procedures Referred By Chloe hinkle Referred To Contact Diagnoses Cholangiocarcinoma (HCC) Snf Current Drug Therapy, Chemotherapy Peritoneal Carcinomatosis (HCC) Neutropenia Chemotherapy Induced (HCC) Procedures RI ONDANSETRON HCL INJECTION RI PACLITAXEL INJECTION RI INJECTION, FULPHILA ONC Yuko Pennington MPAS, P.A.-C. [address] [place] [phone] Rst Onc Rogo [address] [place] [phone] Referral ID Status Reason Start Date Expiration Date V isits Requested Visits Authorized [id number] Authorized 03/11/2023 03/31/2024 31 99 Encounter Details Date Type Department Care Team (Latest Contact Info) Description 10/08/2023 9:30 AM CDT Office Visit Department of Oncology in [place], [place] [address] [place] [phone] Yuko Pennington MPAS, P.A.-C. 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 Never true 09/11/19 23 Within the past 12 months, t he [...] your living situation today? [facility] 09/10/2022 Sex and Gender Information Value Date Recorded Sex Assigned at Male 09/10/2022 12:02 PM CDT Gender Identity Male 09/10/2022 12:02 PM CDT Sexual Orientation Straight 09/10/2022 12 :02 PM CDT documented as of this encounter Last Filed Vital Signs Vital Sign Reading Time Taken Comments Blood Pressure 127/68 10/08/2023 9:20 AM CDT Pulse 61 10/08/2023 9:20 AM CDT Temperature 36.1 ??C (97 ??F) 10/08/2023 9:20 AM CDT Respiratory Rate 17 10/08/2023 9:20 AM CDT Oxygen Saturation 99% 10/08/2023 9:20 AM CDT Inhaled Oxygen Concentration - - Weight 89.6 kg (197 lb 8.5 oz) 10/08/2023 9:20 A M CDT Height 182.9 cm (6' 0.01) 10/08/2023 9:20 AM CD T Body Mass Index 26.78 10/08/2023 9:20 AM CDT documented in this encounter Progress Notes * Yuko Pennington MPAS, P.A.-C. - 10/08/2023 9:30 AM CDT .SUBJECTIVE LOCAL ONCOLOGIST: No care sales team leader to display PRIMARY WENDELL ONCOLOGIST: Na Hernandez M.D., Ph.D. CHIEF COMPLAINT / REASON FOR VISIT Jorge Luis Sepulveda is a 68 y.o. male who presents for evaluation of metastatic cholangiocarcinoma. Cancer Staging Cholangiocarcinoma (HCC) Staging form: Intrahepatic Bile Duct, AJCC 8th Edition - Clinical stage from 10/12/2022: Stage IB (cT1b, cN0, cM0) - Pathologic stage from 01/09/2023: Stage IV (pM1) Current Therapy: [facility] CTX-009-002 ( CTX-009 / PACLitaxel ) Current Disease Status: Not evaluated Intent of Therapy: Palliative HISTORY OF PRESENT [...] Genotyping POSITIVE Germline genetic testing in 2022; [email or web address] Cancer + RNA panel from [facility]. 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 One Variant of Uncertain Significance (VUS) identified in the BRCA1 gene, specifically c.3607C>G 06/18/2023 - Research Study Participant Research Study: A Study of CTX-009 in Combination With Paclitaxel in Adult Patients With Unresectable Advanced, Metastatic or Recurrent Biliary Tract Cancers ([employer] INTERNAL MEDICINE-002) ([id number]) Treatment Protocol: [facility] CTX-009-002 ( CTX-009 / PACLitaxel ) INTERVAL HISTORY: presents for evaluation. He notes some worsening fatigue. He feels disappointed by the lack of energy. He has pain in center of abdomen, which seems grossly stable, he takes 4 mg of dilaudidup to 2-3 times per day. He does have a consult with palliative Care pending. He has had some increase in his nausea. He does remain on Zofran. He uses MiraLax daily to help manage his bowels. He does trend toward constipation. He has occasional sinus congestion and bleeding from his nose which started with trial. Neuropathy seems stable, which did exist prior to treatment on trial and has worsened minimally from his baseline prior to treatment but overall is stable on trial. He is getting up mo ving around and enjoys gardening. Notes that he seems to have less stamina for walking. Feels a general loss of strength, but again functional status is grossly stable. REVIEW OF SYSTEMS Pertinent items are noted in HPI; all other review of systems were negative. OBJECTIVE BP 127/68 (BP Location: Right arm, Patient Position: Sitting, Cuff Size: Regular) Pulse 61 Temp36.1 ??C (Tympanic) Resp 17 Ht 182.9 cm Wt 89.6 kg SpO2 99% BMI 26.78 kg/m?? Rate your distress: 1 PHYSICAL EXAMINATION General: Well appearing 68 y.o. who is in no apparent distress. ECOG Performance Status: 1 Skin: Non-jaundice. No rashes. Eyes: No scleral icterus. Lymph: Neck is supple. No palpable cervical, submandibular or supraclavicular lymphadenopathy. Heart: Regular, rate and rhythm. No murmurs, rubs or gallops. Lungs: Clear to auscultation bilaterally. Abdomen: Soft, nontender, nondistended without hepatosplenomegaly or mass. Extremities: No edema. Neuro: No focal deficits. CN 2-12 are grossly intact. Psych: Mood is pleasant, affect is appropriate to stated mood. DIAGNOSTICS I have reviewed the pertinent labs and recent imaging studies. I agree with the interpretation as recorded. No results found. ASSESSMENT / PLAN #1 Cholangiocarcinoma (HCC) #2 Peritoneal Carcinomatosis (HCC) #3 Neutropenia Chemotherapy Induced (HCC) #4 Snf Current Drug Therapy, Chemotherapy Jorge Luis Sepulveda is a 68 y.o. male with metastatic intrahepatic cholangiocarcinoma. He was initially treated with gemcitabine/cisplatin/durvalumab beginning in October 2022, and progressed after 4 months with new, biopsy-proven peritoneal carcinomatosis. He enrolled on the CTX-009 clinical trial and was randomized to the paclitaxel control arm. He had progression of peritoneal carcinomatosis and crossed over to the experimental arm in May 2022. He was seen by Dr. Hernandez last week for restaging scans following 4 cycles of treatment which showed grossly stable disease with no change in size of the perihilar cholangiocarcinoma as well as no significant change in peritoneal carcinomatosis. CA19-9 was 132 on 09/24/2023. He will continue on Dilaudid 4 mg p.r.n., and has palliative care consult pending, currently awaiting schedule date. If there is a delay in scheduling we can consider starting him on long-acting morphine. He will continue MiraLax for his bowel regimen. Counts are appropriate to proceed with cycle 5 day 1. 3 spent some time talking about his fatigue which is expected after 5 months of chemotherapy. He is currently on dose level 2 reduction of the paclitaxel. I added some fluids as well for the mildly elevated creatinine. Creatinine clearance meetscriteria to proceed. He will continue to work on good oral hydration. We will see him back as per the protocol. Intent to Change Therapy: No PATIENT EDUCATION: Ready to learn, no apparent learning barriers were identified; learning preferences include listening. Explained diagnosis and treatment plan; patient expressed understanding of the content. ADMINISTRATIVE BILLING: I personally spent 45 minutes involved in the care of this patient on this date. documented in this encounter Plan of Treatment Upcoming Encounters Date Type Department Care Team (Latest Contact Info) Description 11/07/2023 3:15 PM CDT Clinical Communication Virtual Review in [address] [phone] 11/15/2023 6:40 AM CDT Lab Department of Laboratory Medicine and Pathology, [facility], in [address] [phone] Loyda Lennon M.D. [address] [place] [phone] 11/15/2023 8:20 AM CDT Office Visit Department of Oncology in [address] [phone] Manjit Velasquez APRN, C.N.P., D.N.P. [address] [place] [phone] 11/15/2023 9:30 AM CDT Comprehensive Visit Department of Palliative Care in [address] [phone] Patty Gomez APRN, C.N.P., M.S.N. [address] [place] [phone] 11/15/2023 2:15 PM CDT Infusion Department of Oncology in [address] [phone] Loyda Lennon M.D. [address] [place] [phone] 11/22/2023 7:30 AM CDT Lab Department of Oncology in [place], [place] [address] [place] [phone] Loyda Lennon M.D. [address] [place] [phone] 11/22/2023 8:45 AM CDT Infusion Department of Oncology in [place], [place] [address] [place] [phone] Loyda Lennon M.D. [address] [place] [phone] 11/28/2023 3:30 PM CDT Clinical Communication Virtual Review in [place], [place] [address] [place] [address] 11/29/2023 9:00 AM CDT Procedure visit Department of Urology in [place], [place] [address] [place] [phone] Mark Colorado M.D. [address] [place] [phone] 11/29/2023 11:20 AM CDT Lab Department of Laboratory Medicine and Pathology, [facility], in [address] [phone] Loyda Lennon M.D. [address] [place] [phone] 11/29/2023 11:30 AM CDT Lab Department of Oncology in [place], [place] [address] [place] [phone] Loyda Lennon M.D. [address] [place] [phone] 11/29/2023 1:00 PM CDT Infusion Department of Oncology in [place], [place] [address] [place] [phone] Loyda Lennon M.D. [address] [place] [phone] 12/03/2023 1:45 PM CDT Comprehensive Visit Department of Urology in [place], [place] [address] [place] [phone] Mona Egan P.A.-C. [address] [place] [phone] 12/05/2023 1:20 PM CDT Comprehensive Visit Department of Oncology in [place], [place] [address] [place] [phone] Letty Kate M.D. [address] [place] [phone] 12/10/2023 3:00 PM CDT Clinical Communication Virtual Review in [place], [place] 200 [place] [address] 12/10/2023 3:30 PM CDT Procedure visit Department of Urology in [place], [place] [address] [place] [phone] Mark Colorado M.D. [address] [place] [address] 12/12/2023 3:45 PM CDT Appointment Department of Radiology, [facility], in [place], [place] [address] [place] [phone] Na Hernandez M.D., Ph.D. [address] [place] [phone] 12/13/2023 6:00 AM CDT Lab Department of Laboratory Medicine and Pathology, [facility], in [place], [place] [address] [place] [phone] Loyda Lennon M.D. [address] [place] [phone] 12/13/2023 6:20 AM CDT Lab Department of Infusion Therapy in [place], [place] [address] [place] [phone] Loyda Lennon M.D. [address] [place] [phone] 12/13/2023 11:10 AM CDT Office Visit Department of Oncology in [place], [place] [address] [place] [phone] Na Hernandez M.D., Ph.D. [address] [place] [phone] 12/13/2023 1:00 PM CDT Infusion Department of Oncology in [place], [place] [address] [place] [phone] Loyda Lennon M.D. [address] [place] [phone] 12/20/2023 9:20 AM CDT Lab Department of Infusion Therapy in [address] [phone] Loyda Lennon M.D. [address] [place] [phone] 12/20/2023 10:30 AM CDT Infusion Department of Oncology in [place], [place] [address] [place] [phone] Loyda Lennon M.D. [address] [place] [phone] 12/25/2023 10:30 AM CDT Appointment Division of Gastroenterology in [address] [phone] Na Hernandez M.D., Ph.D. [address] [place] [phone] 12/27/2023 10:15 AM CDT Lab Department of Oncology in [place], [place] [address] [place] [phone] Loyda Lennon M.D. [address] [place] [phone] 12/27/2023 10:30 AM CDT Lab Department of Laboratory Medicine and Pathology, [facility] in [place], [place] [address] [place] [phone] Loyda Lennon M.D. [address] [place] [phone] 12/27/2023 11:45 AM CDT Infusion Department of Oncology in [place], [place] [address] [place] [phone] Loyda Lennon M.D. [address] [place] [phone] 01/03/2024 1:00 PM CDT Clinical Communication Virtual Review in [place], [place] 200 [place] [address] 01/10/2024 8:00 AM CDT Lab Department of Infusion Therapy in [place], [place] [address] [place] [phone] Loyda Lennon M.D. [address] [place] [phone] 01/10/2024 8:20 AM CDT Lab Department of Laboratory Medicine and Pathology, [facility] in [place], [place] [address] [place] [address] Loyda Lennon M.D. [address] [place] [phone] 01/10/2024 10:30 AM CDT Office Visit Department of Oncology in [place], [place] [address] [place] [phone] Na Hernandez M.D., Ph.D. [address] [place] [phone] 01/10/2024 11:45 AM CDT Infusion Department of Oncology in [place], [place] [address] [place] [phone] Loyda Lennon M.D. [address] [place] [phone] 01/17/2024 8:45 AM CDT Lab Department of Oncology in [place], [place] [address] [place] [phone] Loyda Lennon M.D. [address] [place] [phone] 01/17/2024 10:00 AM CDT Infusion Department of Oncology in [place], [place] [address] [place] [phone] Loyda Lennon M.D. [address] [place] [phone] 01/24/2024 8:00 AM CDT Lab Department of Laboratory Medicine and Pathology, [facility], in [place], [place] [address] [place] [phone] Loyda Lennon M.D. [address] [place] [phone] 01/24/2024 8:15 AM CDT Lab Department of Oncology in [place], [place] [address] [place] [phone] Loyda Lennon M.D. [address] [place] [address] 01/24/2024 9:15 AM CDT Infusion Department of Oncology in [place], [place] [address] [place] [address] Loyda Lennon M.D. [address] [place] [address] Scheduled Orders Name Type Priority Associated Diagnoses Orde r Schedule ERCP GI Routine Cholangiocarcinoma (HCC) Expected: 02/03/2024, Expires: 01/07/2025 [place] Fluoro Less Than 1 Hour Imaging RAD - Routine (most inpatients and all outpatients) Cholangiocarcinoma (HCC) Expected: 02/03/2024, Expires: 01/07/2025 Scheduled Procedures Name Priority Associated Diagnoses Date/Ti me HEPATECTOMY RESECTION LIVER Cholangiocarcinoma (HCC) ULTRASOUND LIVER Cholangiocarcinoma (HCC) RECONSTRUCTION PORTAL VEIN Cholangiocarcinoma (HCC) documented as of this encounter Visit Diagnoses Diagnosis Cholangiocarcinoma (HCC) Peritoneal Carcinomatosis (HCC) Neutropenia Chemotherapy Induced (HCC) 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 [address] [place] [address] PCP - General Family Medicine 11/09/22 documented as of this encounter
--- OUTSIDE RECORDS SUMMARY | 2023-11-05 22:08 | XMS_ITS | Encounter Summary ---
Author Organization [facility] Address [address] [place] [address] Care Team Providers Care Controls Design Engineer Name Role Phone Mark Colorado M.D. Primary Care Provider [phone] Encounter Details Date Type Department Care Team (Late st Contact Info) Description 10/07/2023 Orders Only Department of Oncology in [place], [place] [address] [place] [address] Omero Lopes Social History Tobacco Use Types Packs/Day Years Used Date Smoking Tobacco: Never Passive Smoke Exposure: Never Smokeless Tobacco: Never Alcohol Use Standard Drinks/Week Comments Not Currently 0 (1 standard drink = 0.6 oz pur e alcohol) [facility] Utilities Answer Date Recorded In the past 12 months has [employer], gas, oil, or water [employer] threatened to shut off services in your [...] [facility] place to live 10/22/2023 Sex and Gender Information Value Date Recorded Sex Assigned at Male 09/10/2022 12:02 PM CDT Gender Identity Male 09/10/2022 12:02 PM CDT Sexual Orientation Straight 09/10/2022 12 :02 PM CDT documented as of this encounter Plan of Treatment Upcoming Encounters Date Type Department Care Team (Latest Contact Info) Description 11/07/2023 3:15 PM CDT Clinical Communication Virtual Review in [place], [place] [address] [place] [address] 11/15/2023 6:40 AM CDT Lab Department of Laboratory Medicine and Pathology, [facility] in [address] [phone] Loyda Lennon M.D. [address] [place] [phone] 11/15/2023 8:20 AM CDT Office Visit Department of Oncology in [address] [address] Manjit Velasquez APRN, C.N.P., D.N.P. [address] [place] [phone] 11/15/2023 9:30 AM CDT Comprehensive Visit Department of Palliative Care in [address] [address] Patty Gomez APRN, C.N.P., M.S.N. [address] [place] [phone] 11/15/2023 2:15 PM CDT Infusion Department of Oncology in [address] [address] Loyda Lennon M.D. [address] [place] [phone] 11/22/2023 7:30 AM CDT Lab Department of Oncology in [place], [place] [address] [place] [phone] Loyda Lennon M.D. [address] [place] [phone] 11/22/2023 8:45 AM CDT Infusion Department of Oncology in [place], [place] [address] [place] [phone] Loyda Lennon M.D. [address] [place] [phone] 11/28/2023 3:30 PM CDT Clinical Communication Virtual Review in [place], [place] [address] [place] [address] 11/29/2023 9:00 AM CDT Procedure visit Department of Urology in [place], [place] [address] [place] [phone] Mark Colorado M.D. [address] [place] [address] [place] [address] 11/29/2023 11:20 AM CDT Lab Department of Laboratory Medicine and Pathology, [facility], in [place], [place] [address] [place] [phone] Loyda Lennon M.D. [address] [place] [phone] 11/29/2023 11:30 AM CDT Lab Department of Oncology in [place], [place] [address] [place] [phone] Loyda Lennon M.D. [address] [place] [phone] 11/29/2023 1:00 PM CDT Infusion Department of Oncology in [place], [place] [address] [place] [phone] Loyda Lennon M.D. [address] [place] [phone] 12/03/2023 1:45 PM CDT Comprehensive Visit Department of Urology in [place], [place] [address] [place] [phone] Mona Egan P.A.-C. [address] [place] [phone] 12/05/2023 1:20 PM CDT Comprehensive Visit Department of Oncology in [place], [place] [address] [place] [phone] Letty Kate M.D. [address] [place] [phone] 12/10/2023 3:00 PM CDT Clinical Communication Virtual Review in [place], [place] [address] [place] [address] 12/10/2023 3:30 PM CDT Procedure visit Department of Urology in [place], [place] [address] [place] [phone] Mark Colorado M.D. [address] [place] [address] [place] [address] 12/12/2023 3:45 PM CDT Appointment Department of Radiology, [facility], in [place], [place] [address] [place] [phone] Na Hernandez M.D., Ph.D. [address] [place] [phone] 12/13/2023 6:00 AM CDT Lab Department of Laboratory Medicine and Pathology, [facility], in [place], [place] [address] [place] [phone] Loyda Lennon M.D. [address] [place] [phone] 12/13/2023 6:20 AM CDT Lab Department of Infusion Therapy in [place], [place] [address] [place] [address] Loyda Lennon M.D. [address] [place] [phone] 12/13/2023 11:10 AM CDT Office Visit Department of Oncology in [place], [place] [address] [place] [phone] Na Hernandez M.D., Ph.D. [address] [place] [phone] 12/13/2023 1:00 PM CDT Infusion Department of Oncology in [place], [place] [address] [place] [phone] Loyda Lennon M.D. [address] [place] [phone] 12/20/2023 9:20 AM CDT Lab Department of Infusion Therapy in [place], [place] [address] [place] [phone] Loyda Lennon M.D. [address] [place] [phone] 12/20/2023 10:30 AM CDT Infusion Department of Oncology in [place], [place] [address] [place] [phone] Loyda Lennon M.D. [address] [place] [phone] 12/25/2023 10:30 AM CDT Appointment Division of Gastroenterology in [address] [phone] Na Hernandez M.D., Ph.D. [address] [place] [phone] 12/27/2023 10:15 AM CDT Lab Department of Oncology in [address] [address] Loyda Lennon M.D. [address] [place] [phone] 12/27/2023 10:30 AM CDT Lab Department of Laboratory Medicine and Pathology, [address] [address] Loyda Lennon M.D. [address] [place] [phone] 12/27/2023 11:45 AM CDT Infusion Department of Oncology in [address] [address] Loyda Lennon M.D. [address] [place] [phone] 01/03/2024 1:00 PM CDT Clinical Communication Virtual Review in [place], [place] [address] [place] [address] 01/10/2024 8:00 AM CDT Lab Department of Infusion Therapy in [address] [address] Loyda Lennon M.D. [address] [place] [phone] 01/10/2024 8:20 AM CDT Lab Department of Laboratory Medicine and Pathology, [facility], [place] [address] [place] [address] Loyda Lennon M.D. [address] [place] [phone] 01/10/2024 10:30 AM CDT Office Visit Department of Oncology in [place], [place] [address] [place] [phone] Na Hernandez M.D., Ph.D. [address] [place] [phone] 01/10/2024 11:45 AM CDT Infusion Department of Oncology in [place], [place] [address] [place] [address] Loyda Lennon M.D. [address] [place] [phone] 01/17/2024 8:45 AM CDT Lab Department of Oncology in [place], [place] [address] [place] [address] Loyda Lennon M.D. [address] [place] [phone] 01/17/2024 10:00 AM CDT Infusion Department of Oncology in [place], [place] [address] [place] [address] Loyda Lennon M.D. [address] [place] [phone] 01/24/2024 8:00 AM CDT Lab Department of Laboratory Medicine and Pathology, [facility], in [place], [place] [address] [place] [address] Loyda Lennon M.D. [address] [place] [phone] 01/24/2024 8:15 AM CDT Lab Department of Oncology in [place], [place] [address] [place] [address] Loyda Lennon M.D. [address] [place] [phone] 01/24/2024 9:15 AM CDT Infusion Department of Oncology in [place], [place] [address] [place] [address] Loyda Lennon M.D. [address] [place] [phone] Scheduled Procedures Name Priority Associated Diagnoses Date/Ti me HEPATECTOMY RESECTION LIVER Cholangiocarcinoma (HCC) ULTRASOUND LIVER Cholangiocarcinoma (HCC) RECONSTRUCTION PORTAL VEIN Cholangiocarcinoma (HCC) documented as of this encounter Visit Diagnoses Not on filedocumented in this encounter Additional Health Concerns Infection Onset Date Last Indicated Resolved Time Protective Environment 11/07/2022 11/07/2022 documented as of this encounter Care Teams Controls Design Engineer Relationship Specialty Start Date End Date Mark Colorado M.D. [address] [place] [address] PCP - General Family Medicine 11/09/22 documented as of this encounter
--- OUTSIDE RECORDS SUMMARY | 2023-11-05 22:08 | XMS_ITS | Encounter Summary ---
Author Organization [facility] Address [address] [place] [address] Care Team Providers Care Final Inspector And Tester Name Role Phone Mark Colorado M.D. Primary Care Provider [phone] Reason for Referral * MRI/CAT/PET Scan (Routine) - Closed Specialty Diagnoses / Procedures Referred By Chloe hinkle Referred To Contact Radiology Diagnoses Cholangiocarcinoma (HCC) Procedures CT Abdomen Pelvis with IV Contrast Na Hernandez M.D., Ph.D. [address] [place] [address] [facility] Referral ID Status Reason Start Date Expiration Date Visits Re quested Visits Authorized [id number] Closed 08/09/2023 08/08/2024 1 1 * MRI/CAT/PET Scan (Routine) - Closed Specialty Diagnoses / Procedures Referred By Chloe hinkle Referred To Contact Radiology Diagnoses Cholangiocarcinoma (HCC) Procedures CT Chest with IV Contrast Na Hernandez M.D., Ph.D. [address] [place] [phone] [facility] Referral ID Status Reason Start Date Expiration Date Visits Re quested Visits Authorized [id number] Closed 08/09/2023 08/08/2024 1 1 Reason for Visit * MRI/CAT/PET Scan (Routine) - Closed Specialty Diagnoses / Procedures Referred By Chloe hinkle Referred To Contact Radiology Diagnoses Cholangiocarcinoma (HCC) Procedures CT Abdomen Pelvis with IV Contrast Na Hernandez M.D., Ph.D. [address] [place] [phone] [facility] Referral ID Status Reason Start Date Expiration Date Visits Re quested Visits Authorized [id number] Closed 08/09/2023 08/08/2024 1 1 Encounter Details Date Type Department Care Team (Latest Contact Info) Description 10/01/2023 8:02 AM CDT - 10/01/2023 11:59 PM CDT Hospital Encounter Department of Radiology, [facility], in [place], [place] [address] [place] [phone] Na Hernandez M.D., Ph.D. [address] [place] [phone] Cholangiocarcinoma (HCC) Discharge Disposition: Home or Self Care Social [...] your living situation today? I have a [facility] place to live 09/10/2022 Sex and Gender Information Value Date Recorded Sex Assigned at Male 09/10/2022 12:02 PM CDT Gender Identity Male 09/10/2022 12:02 PM CDT Sexual Orientation Straight 09/10/2022 12 :02 PM CDT documented as of this encounter Medications at Time of Discharge Medication Sig Dispensed Refills Start Date End Date bisacodyL (DULCOLAX) 10 mg suppositoryIndication s:Constipation Slow [...] Take 200 mg by mouth daily. glucosamine ebt-mnvsqxanit-loj 500-200-150 mg tablet Take 1 tablet by mouth daily. 12/05/2021 magnesium chloride (SLOW-MAG) 71.[address] tablet Take 1 tablet (71.5 mg total) by mouth as directed. Take 2 tabs in the morning and 1 tab in the evening. Do not crush or chew. 01/17/2023 polyethylene glycol (MIRALAX) 17 gram/dose oral powder [...] 02/14/2023 prochlorperazine (COMPAZINE) 10 mg tabletIndications:Cho langiocarcinoma (HCC),Half-Way Current Drug Therapy, Chemotherapy Take 1 tablet (10 mg total) by mouth every 6 (six) hours as needed for nausea or vomiting (unrelieved by ondansetron). 30 tablet 3 11/02/2022 11/02/2023 amLODIPine (NORVASC) 10 mg tablet Take 1 tablet (10 mg total) by mouth daily. 30 tablet 3 08/05/2023 10/08/2023 fluticasone propionate (FLONASE) 50 mcg/actuation nasal spray Administer 2 sprays into each nostril daily. 16 g 3 02/14/2023 10/24/2023 HYDROmorphone (Dilaudid) 2 mg tabletIndications:Chr onic Pain/Nonacute Pain TAKE 1 TABLET (2 MG TOTAL) BY MOUTH EVERY 4 (FOUR) HOURS NEEDED FOR PAIN INDICATION: CHRONIC PAIN/NONACUTE PAIN. 42 tablet 09/20/2023 10/15/2023 lisinopriL (PRINIVIL,ZESTRIL) 10 mg tablet Take 1 tablet (10 mg total) by mouth daily. 30 tablet 11 09/17/2023 10/08/2023 ondansetron (ZOFRAN) 8 mg tabletIndications:Cho langiocarcinoma (HCC),A And P Technician Current Drug Therapy, Chemotherapy Take 1 tablet (8 mg total) by mouth every 8 (eight) hours as needed for nausea or vomiting. 30 tablet 3 11/02/2022 10/02/2023 ondansetron ODT (Zofran-ODT) 8 mg disintegrating tablet Dissolve 1 tablet (8 mg total) in the mouth every 8 (eight) hours as needed for nausea or vomiting. 20 tablet 10/02/2023 10/15/2023 documented as of this encounter Plan of Treatment Upcoming Encounters Date Type Department Care Team (Latest Contact Info) Description 11/07/2023 3:15 PM CDT Clinical Communication Virtual Review in [place], [place] [address] [place] [address] 11/15/2023 6:40 AM CDT Lab Department of Laboratory Medicine and Pathology, [facility], in [place], [place] [address] [place] [address] Loyda Lennon M.D. [address] [place] [phone] 11/15/2023 8:20 AM CDT Office Visit Department of Oncology in [address] [phone] Manjit Velasquez APRN, C.N.P., D.N.P. [address] [place] [phone] 11/15/2023 9:30 AM CDT Comprehensive Visit Department of Palliative Care in [address] [phone] Patty Gomez APRN, C.N.P., M.S.N. [address] [place] [phone] 11/15/2023 2:15 PM CDT Infusion Department of Oncology in [address] [phone] Loyda Lennon M.D. [address] [place] [phone] 11/22/2023 7:30 AM CDT Lab Department of Oncology in [address] [phone] Loyda Lennon M.D. [address] [place] [phone] 11/22/2023 8:45 AM CDT Infusion Department of Oncology in [address] [phone] Loyda Lennon M.D. [address] [place] [phone] 11/28/2023 3:30 PM CDT Clinical Communication Virtual Review in [address] [place] [phone] 11/29/2023 9:00 AM CDT Procedure visit Department of Urology in [place], [place] [address] [place] [phone] Mark Colorado M.D. [address] [place] [address] 11/29/2023 11:20 AM CDT Lab Department of Laboratory Medicine and Pathology, [facility] in [place], [place] [address] [place] [phone] Loyda Lennon M.D. [address] [place] [phone] 11/29/2023 11:30 AM CDT Lab Department of Oncology in [place], [place] [address] [place] [phone] Loyda Lennon M.D. [address] [place] [phone] 11/29/2023 1:00 PM CDT Infusion Department of Oncology in [place], [place] [address] [place] [phone] Loyda Lennon M.D. [address] [place] [phone] 12/03/2023 1:45 PM CDT Comprehensive Visit Department of Urology in [place], [place] [address] [place] [phone] Mona Egan, P.A.-Sara [address] [place] [phone] 12/05/2023 1:20 PM CDT Comprehensive Visit Department of Oncology in [place], [place] [address] [place] [phone] Letty Owusu M.D. [address] [place] [phone] 12/10/2023 3:00 PM CDT Clinical Communication Virtual Review in [place], [place] [address] [place] [address] 12/10/2023 3:30 PM CDT Procedure visit Department of Urology in [place], [place] [address] [place] [phone] Mark Colorado M.D. [address] [place] [address] 12/12/2023 3:45 PM CDT Appointment Department of Radiology, [facility], in [place], [place] [address] [place] [phone] Na Hernandez M.D., Ph.D. [address] [place] [phone] 12/13/2023 6:00 AM CDT Lab Department of Laboratory Medicine and Pathology, [facility], in [place], [place] [address] [place] [phone] Loyda Lennon M.D. [address] [place] [phone] 12/13/2023 6:20 AM CDT Lab Department of Infusion Therapy in [place], [place] [address] [place] [phone] Loyda Lennon M.D. [address] [place] [phone] 12/13/2023 11:10 AM CDT Office Visit Department of Oncology in [place], [place] [address] [place] [phone] Na Hernandez M.D., Ph.D. [address] [place] [phone] 12/13/2023 1:00 PM CDT Infusion Department of Oncology in [place], [place] [address] [place] [phone] Loyda Lennon M.D. [address] [place] [phone] 12/20/2023 9:20 AM CDT Lab Department of Infusion Therapy in [place], [place] [address] [place] [phone] Loyda Lennon M.D. [address] [place] [phone] 12/20/2023 10:30 AM CDT Infusion Department of Oncology in [place], [place] [address] [place] [phone] Loyda Lennon M.D. [address] [place] [phone] 12/25/2023 10:30 AM CDT Appointment Division of Gastroenterology in [address] [phone] Na Hernandez M.D., Ph.D. [address] [place] [phone] 12/27/2023 10:15 AM CDT Lab Department of Oncology in [place], [place] [address] [place] [phone] Loyda Lennon M.D. [address] [place] [phone] 12/27/2023 10:30 AM CDT Lab Department of Laboratory Medicine and Pathology, [facility], in [place], [place] [address] [place] [phone] Loyda Lennon M.D. [address] [place] [phone] 12/27/2023 11:45 AM CDT Infusion Department of Oncology in [place], [place] [address] [place] [phone] Loyda Lennon M.D. [address] [place] [phone] 01/03/2024 1:00 PM CDT Clinical Communication Virtual Review in [place], [place] [address] [place] [address] 01/10/2024 8:00 AM CDT Lab Department of Infusion Therapy in [address] [phone] Loyda Lennon M.D. [address] [place] [phone] 01/10/2024 8:20 AM CDT Lab Department of Laboratory Medicine and Pathology, [facility], in [place], [place] [address] [place] [phone] Loyda Lennon M.D. [address] [place] [phone] 01/10/2024 10:30 AM CDT Office Visit Department of Oncology in [address] [phone] Na Hernandez M.D., Ph.D. [address] [place] [phone] 01/10/2024 11:45 AM CDT Infusion Department of Oncology in [address] [phone] Loyda Lennon M.D. [address] [place] [phone] 01/17/2024 8:45 AM CDT Lab Department of Oncology in [place], [place] [address] [place] [phone] Loyda Lennno M.D. [address] [place] [phone] 01/17/2024 10:00 AM CDT Infusion Department of Oncology in [place], [place] [address] [place] [phone] Loyda Lennon M.D. [address] [place] [phone] 01/24/2024 8:00 AM CDT Lab Department of Laboratory Medicine and Pathology, [facility] in [place], [place] [address] [place] [phone] Loyda Lennon M.D. [address] [place] [phone] 01/24/2024 8:15 AM CDT Lab Department of Oncology in [place], [place] [address] [place] [phone] Loyda Lennon M.D. [address] [place] [phone] 01/24/2024 9:15 AM CDT Infusion Department of Oncology in [place], [place] [address] [place] [phone] Loyda Lennon M.D. [address] [place] [phone] Scheduled Procedures Name Priority Associated Diagnoses Date/Ti me HEPATECTOMY RESECTION LIVER Cholangiocarcinoma (HCC) ULTRASOUND LIVER Cholangiocarcinoma (HCC) RECONSTRUCTION PORTAL VEIN Cholangiocarcinoma (HCC) documented as of this encounter Procedures Procedure Name Priority Date/Time Associated Diagnosis Comments CT ABDOMEN PELVIS WITH IV CONTRAST RAD - Routine (most inpatients and all outpatients) 10/01/2023 8:46 AM CDT Cholangiocarcinom a (HCC) CT CHEST WITH IV CONTRAST RAD - Routine (most inpatients and all outpatients) 10/01/2023 8:46 AM CDT Cholangiocarcinom a (HCC) documented in this encounter Results * CT Abdomen Pelvis with IV Contrast (10/01/2023 8:46 AM CDT) Anatomical Region Laterality Modality Abdomen, Pelvis, Abdominal R ST LOS, Abdominal ARZ LOS, Abdominal FLA LOS N/A Computed Tomograp hy, Computed Tomography 10/01/2023 8:40 AM CDT Impressions 10/01/2023 11:15 AM CDT 1. Stable perihilar cholangiocarcinoma. 2. Less conspicuous omental carcinomatosis, though mild increase in small amount of ascites. Narrative 10/01/2023 11:15 AM CDT REVISED REPORT: EXAM: ??CT ABDOMEN PELVIS WITH IV CONTRAST COMPARISON: ??CT abdomen pelvis 07/31/2023. FINDINGS: ??Similar appearance of the perihilar cholangiocarcinoma measuring approximately 5.1 cm (series 4 image 45). No new suspicious hepatic lesions. Stable hypoattenuating hepatic lesions, probable cysts and/or hemangiomas. Plastic biliary stents. Trace pneumobilia. Cholecystectomy. Mild interval increase in small amount of ascites. Omental nodularity and stranding is slightly less conspicuous than most recent CT 07/31/2023. No suspicious lymphadenopathy. Small splenule. Aortoiliac calcifications. Mild prostate enlargement. Mild anterolisthesis of L4 on L5. Degenerative changes of the spine and pelvis. No suspicious osseous lesions. This examination was performed in conjunction with a CT of the chest, which will be reported separately. Procedure Note Siri Altamirano M.D. - 10/01/2023 REVISED REPORT: EXAM: CT ABDOMEN PELVIS WITH IV CONTRAST COMPARISON: CT abdomen pelvis 07/31/2023. FINDINGS: Similar appearance of the perihilar cholangiocarcinomameasuring approximately 5.1 cm (series 4 image 45). No new suspicioushepatic lesions. Stable hypoattenuating hepatic lesions, probable cystsand/or hemangiomas. Plastic biliary stents. Trace pneumobilia. Cholecystectomy. Mild interval increase in small amount of ascites. Omental nodularity andstranding is slightly less conspicuous than most recent CT 07/31/2023. No suspicious lymphadenopathy. Small splenule. Aortoiliac calcifications.Mild prostate enlargement. Mild anterolisthesis of L4 on L5. Degenerative changes of the spine andpelvis. No suspicious osseous lesions. This examination was performed in conjunction with a CT of the chest,which will be reported separately. IMPRESSION: 1. Stable perihilar cholangiocarcinoma. 2. Less conspicuous omental carcinomatosis, though mild increase in smallamount of ascites. Na Hernandez M.D., Ph.D. [facility] CT PROC EDURES * CT Chest with IV Contrast (10/01/2023 [...] thoracic lymph nodes. Na Hernandez M.D., Ph.D. [facility] CT PROC EDURES documented in this encounter Visit Diagnoses Diagnosis Cholangiocarcinoma (HCC) documented in this encounter Administered Medications Inactive Administered Medications - up to 3 most recent administrations Medication Order MAR Action Action Date Dose Rate Site iohexoL 300 mg iodine/mL solution 1-200 mL (Omnipaque) 1-200 mL, intravenous, Once in imaging, contrast, Starting on Sat10/01/23 at 0809, For 1 dose, Imaging Protocol Orders, Dose per Radiant Medication Guidelines Given 10/01/2023 8:30 AM CDT 140 mL sodium chloride (PF) 0.9 % injection 1-100 mL 1-100 mL, intravenous, Once, On e 10/01/23 at 0830, For 1 dose, Imaging Protocol Orders, Dose per Radiant Medication Guidelines Given 10/01/2023 8:31 AM CDT 50 mL documented in this encounter Additional Health Concerns Infection Onset Date Last Indicated Resolved Time Protective Environment 11/07/2022 11/07/2022 documented as of this encounter Care Teams Final Inspector And Tester Relationship Specialty Start Date End Date Mark Colorado M.D. [facility] [place] [address] PCP - General Family Medicine 11/09/22 documented as of this encounter
--- OUTSIDE RECORDS SUMMARY | 2023-11-05 22:09 | XMS_ITS | Encounter Summary ---
Author Organization [facility] Address [address] [place] [address] Care Team Providers Care Rotary Engraver Name Role Phone Mark Colorado M.D. Primary Care Provider [phone] Reason for Visit * Episode Based Medications (Routine) - Authorized Specialty Diagnoses / Procedures Referred By Contac t Referred To Contact Diagnoses Cholangiocarcinoma (HCC) Penitentiary Current Drug Therapy, Chemotherapy Peritoneal Carcinomatosis (HCC) Neutropenia Chemotherapy Induced (HCC) Procedures MA ONDANSETRON HCL INJECTION MA PACLITAXEL INJECTION MA INJECTION, DARINEL ONC Yuko Pennington MPAS, P.A.-C. [address] [place] [address] Rst Onc Cruz [address] [place] [address] Referral ID Status Reason Start Date Expiration Date V isits Requested Visits Authorized [id number] Authorized 03/11/2023 03/31/2024 31 99 Encounter Details Date Type Department Care Team (Latest Contact Info) Description 09/24/2023 9:30 AM CDT Infusion Department of Oncology in [place], [place] [address] [place] [address] Na Hernandez M.D., Ph.D. [address] [place] [phone] Business Trainer Current Drug Therapy, Chemotherapy (Primary Dx); Cholangiocarcinoma [...] your living situation today? I have a [facility] place to live 09/10/2022 Sex and Gender Information Value Date Recorded Sex Assigned at Male 09/10/2022 12:02 PM CDT Gender Identity Male 09/10/2022 12:02 PM CDT Sexual Orientation Straight 09/10/2022 12 :02 PM CDT documented as of this encounter Last Filed Vital Signs Vital Sign Reading Time Taken Comments Blood Pressure 127/63 09/24/2023 10:13 AM CDT Pulse 76 09/24/2023 10:13 AM CDT Temperature 36.4 ??C (97.5 ??F) 09/24/2023 10:13 AM C DT Respiratory Rate - - Oxygen Saturation - - Inhaled Oxygen Concentration - - Weight 88.6 kg (195 lb 5.2 oz) 09/24/2023 10:13 AM CDT Height - - Body Mass Index 26.57 09/10/2023 1:12 PM CDT documented in this encounter Plan of Treatment Upcoming Encounters Date Type Department Care Team (Latest Contact Info) Description 11/07/2023 3:15 PM CDT Clinical Communication Virtual Review in [place], [place] [address] [place] [address] 11/15/2023 6:40 AM CDT Lab Department of Laboratory Medicine and Pathology, [facility], in [address] [address] Loyda Lennon M.D. [address] [place] [phone] 11/15/2023 8:20 AM CDT Office Visit Department of Oncology in [address] [address] Manjit Velasquez APRN, C.N.P., D.N.P. [address] [place] [phone] 11/15/2023 9:30 AM CDT Comprehensive Visit Department of Palliative Care in [address] [address] Patty Gomez APRN, C.N.P., M.S.N. [address] [place] [phone] 11/15/2023 2:15 PM CDT Infusion Department of Oncology in [address] [address] Loyda Lennon M.D. [address] [place] [phone] 11/22/2023 7:30 AM CDT Lab Department of Oncology in [address] [address] Loyda Lennon M.D. [address] [place] [phone] 11/22/2023 8:45 AM CDT Infusion Department of Oncology in [address] [address] Loyda Lennon M.D. [address] [place] [phone] 11/28/2023 3:30 PM CDT Clinical Communication Virtual Review in [place], [place] [address] [place] [address] 11/29/2023 9:00 AM CDT Procedure visit Department of Urology in [place], [place] [address] [place] [phone] Mark Colorado M.D. [address] [place] [address] 11/29/2023 11:20 AM CDT Lab Department of Laboratory Medicine and Pathology, [facility] in [place], [place] [address] [place] [phone] Loyda Lennon M.D. [address] [place] [phone] 11/29/2023 11:30 AM CDT Lab Department of Oncology in [place], [place] [address] [place] [phone] Loyda Lennon M.D. [address] [place] [phone] 11/29/2023 1:00 PM CDT Infusion Department of Oncology in [place], [place] [address] [place] [phone] Loyda Lennon M.D. [address] [place] [phone] 12/03/2023 1:45 PM CDT Comprehensive Visit Department of Urology in [place], [place] [address] [place] [phone] Mona Egan, PHoldenAKaterine [address] [place] [phone] 12/05/2023 1:20 PM CDT Comprehensive Visit Department of Oncology in [place], [place] [address] [place] [phone] Letty Kate M.D. [address] [place] [phone] 12/10/2023 3:00 PM CDT Clinical Communication Virtual Review in [place], [place] [address] [place] [address] 12/10/2023 3:30 PM CDT Procedure visit Department of Urology in [place], [place] [address] [place] [phone] Mark Colorado M.D. [address] [place] [address] 12/12/2023 3:45 PM CDT Appointment Department of Radiology, [facility], in [place], [place] [address] [place] [phone] Na Hernandez M.D., Ph.D. [address] [place] [phone] 12/13/2023 6:00 AM CDT Lab Department of Laboratory Medicine and Pathology, [facility], in [place], [place] [address] [place] [phone] Loyda Lennon M.D. [address] [place] [phone] 12/13/2023 6:20 AM CDT Lab Department of Infusion Therapy in [place], [place] [address] [place] [phone] Loyda Lennon M.D. [address] [place] [phone] 12/13/2023 11:10 AM CDT Office Visit Department of Oncology in [place], [place] [address] [place] [phone] Na Hernandez M.D., Ph.D. [address] [place] [phone] 12/13/2023 1:00 PM CDT Infusion Department of Oncology in [place], [place] [address] [place] [phone] Loyda Lennon M.D. [address] [place] [phone] 12/20/2023 9:20 AM CDT Lab Department of Infusion Therapy in [place], [place] [address] [place] [phone] Loyda Lennon M.D. [address] [place] [phone] 12/20/2023 10:30 AM CDT Infusion Department of Oncology in [address] [address] Loyda Lennon M.D. [address] [place] [phone] 12/25/2023 10:30 AM CDT Appointment Division of Gastroenterology in [address] [phone] Na Hernandez M.D., Ph.D. [address] [place] [phone] 12/27/2023 10:15 AM CDT Lab Department of Oncology in [address] [phone] Loyda Lennon M.D. [address] [place] [phone] 12/27/2023 10:30 AM CDT Lab Department of Laboratory Medicine and Pathology, [facility] in [place], [place] [address] [place] [phone] Loyda Lennon M.D. [address] [place] [phone] 12/27/2023 11:45 AM CDT Infusion Department of Oncology in [place], [place] [address] [place] [phone] Loyda Lennon M.D. [address] [place] [phone] 01/03/2024 1:00 PM CDT Clinical Communication Virtual Review in [place], [place] [address] [place] [address] 01/10/2024 8:00 AM CDT Lab Department of Infusion Therapy in [place], [place] [address] [place] [phone] Loyda Lennon M.D. [address] [place] [phone] 01/10/2024 8:20 AM CDT Lab Department of Laboratory Medicine and Pathology, [facility], in [place], [place] [address] [place] [phone] Loyda Lennon M.D. [address] [place] [phone] 01/10/2024 10:30 AM CDT Office Visit Department of Oncology in [place], [place] [address] [place] [phone] Na Hernandez M.D., Ph.D. [address] [place] [phone] 01/10/2024 11:45 AM CDT Infusion Department of Oncology in [place], [place] [address] [place] [phone] Loyda Lennon M.D. [address] [place] [phone] 01/17/2024 8:45 AM CDT Lab Department of Oncology in [place], [place] [address] [place] [phone] Loyda Lennon M.D. [address] [place] [phone] 01/17/2024 10:00 AM CDT Infusion Department of Oncology in [place], [place] [address] [place] [phone] Loyda Lennon M.D. [address] [place] [phone] 01/24/2024 8:00 AM CDT Lab Department of Laboratory Medicine and Pathology, [facility], in [place], [place] [address] [place] [phone] Loyda Lennon M.D. [address] [place] [phone] 01/24/2024 8:15 AM CDT Lab Department of Oncology in [address] [address] Loyda Lennon M.D. [address] [place] [phone] 01/24/2024 9:15 AM CDT Infusion Department of Oncology in [place], [place] [address] [place] [phone] Loyda Lennon M.D. [address] [place] [phone] Scheduled Procedures Name Priority Associated Diagnoses Date/Ti me HEPATECTOMY RESECTION LIVER Cholangiocarcinoma (HCC) ULTRASOUND LIVER Cholangiocarcinoma (HCC) RECONSTRUCTION PORTAL VEIN Cholangiocarcinoma (HCC) documented as of this encounter Visit Diagnoses Diagnosis Business Trainer Current Drug Therapy, Chemotherapy- Primary Cholangiocarcinoma (HCC) Peritoneal Carcinomatosis (HCC) Neutropenia Chemotherapy Induced (HCC) Pure Hypercholesterolemia documented in this encounter Administered Medications Inactive Administered Medications - up to 3 most recent administrations Medication Order MAR Action Action Date Dose Rate Site dexAMETHasone injection 10 mg (Decadron) 10 mg, intravenous, Once, On Sat09/24/23 at 1200, For 1 dose Given 09/24/2023 12:12 PM CDT 10 mg diphenhydrAMINE 25 mg in NaCl 0.9% IVPB (BenadryL) 25 mg, intravenous, at 101 mL/hr, Administer over 30 Minutes, Once, On Sat09/24/23 at 1200, For 1 dose New Bag 09/24/2023 12:16 PM CDT 25 mg 101 mL/hr famotidine injection 20 mg (Pepcid) 20 mg, intravenous, Once, On Sat09/24/23 at 1200, For 1 dose Given 09/24/2023 12:12 PM CDT 20 mg NaCl 0.9 % bolus 1,000 mL 1,000 mL, intravenous, at 1,000 mL/hr, Administer over 1 Hours, Once, On Sat09/24/23 at 1045, For 1 dose New Bag 09/24/2023 10:48 AM CDT 1,000 mL 1000 mL/hr ondansetron (PF) injection 8 mg (Zofran) 8 mg, intravenous, Once, On Sat09/24/23 at 1200, For 1 dose Given 09/24/2023 12:12 PM CDT 8 mg PACLitaxeL 126 mg in NaCl 0.9% (non-PVC/non-DEHP) 296 mL IVPB (TaxoL) 126 mg (rounded from 128.4 mg = 60 mg/m2 ? 2.14 m2 Treatment Plan BSA from Measured weight), intravenous, at 296 mL/hr, Administer over 1 Hours, Once, On Sat09/24/23 at 1345, For 1 dose, Administer immediately after the end of the CTX-009 infusion. Administer via 0.22 micron in-line filter. New Bag 09/24/2023 2:13 PM CDT 126 mg 296 mL/hr Research IRB [id number] CTX-009 900 mg in NaCl 0.9% (non-PVC/non-DEHP) 250 mL IVPB 900 mg (10 mg/kg ? 90 kg Treatment plan Measured weight), intravenous, at 250 mL/hr, Administer over 1 Hours, Once, On Sat09/24/23 at 1245, For 1 dose, May administer 15 minutes [...] bag and tubing are non-PVC. New Bag 09/24/2023 1:03 PM CDT 900 mg 250 mL/hr sodium chloride 0.9 % injection 10-20 mL 10-20 mL, intra-catheter, As needed, line care, Starting on Sat09/24/23 at 1013, When IVAD accessed and infusing: Flush prior to and following infusion, between multiple consecutive infusions. 10 mL to each port/lumen. Given 09/24/2023 10:48 AM CDT 10 mL documented in this encounter Additional Health Concerns Infection Onset Date Last Indicated Resolved Time Protective Environment 11/07/2022 11/07/2022 documented as of this encounter Care Teams Rotary Engraver Relationship Specialty Start Date End Date Mark Colorado M.D. LOUISAI: [phone] [id number] [place], [place] [address] PCP - General Family Medicine 11/09/22 documented as of this encounter
--- OUTSIDE RECORDS SUMMARY | 2023-11-05 22:09 | XMS_ITS | Encounter Summary ---
Author Organization [facility] Address [address] [place] [address] Care Team Providers Care Assistant Controller Name Role Phone Mark Colorado M.D. Primary Care Provider [phone] Reason for Visit * Episode Based Medications (Routine) - Authorized Specialty Diagnoses / Procedures Referred By Contac t Referred To Contact Diagnoses Cholangiocarcinoma (HCC) Skilled Nursing Current Drug Therapy, Chemotherapy Peritoneal Carcinomatosis (HCC) Neutropenia Chemotherapy Induced (HCC) Procedures AL ONDANSETRON HCL INJECTION AL PACLITAXEL INJECTION AL INJECTION, DARINEL ONC Yuko Pennington MPAS, P.A.-C. [address] [place] [address] [address] Onc Cruz [address] [place] [address] Referral ID Status Reason Start Date Expiration Date V isits Requested Visits Authorized [id number] Authorized 03/11/2023 03/31/2024 31 99 Encounter Details Date Type Department Care Team (Latest Contact Info) Description 09/17/2023 8:15 AM CDT Infusion Department of Oncology in [place], [place] [address] [place] [address] Na Hernandez M.D., Ph.D. [address] [place] [phone] Pure Hypercholesterolemia (Primary Dx); Cholangiocarcinoma (HCC); Peritoneal Carcinomatosis (HCC); Neutropenia Chemotherapy Induced (HCC); Skilled Nursing Current Drug Therapy, Chemotherapy Social History Tobacco [...] your living situation today? I have a [facility] place to live 09/10/2022 Sex and Gender Information Value Date Recorded Sex Assigned at Male 09/10/2022 12:02 PM CDT Gender Identity Male 09/10/2022 12:02 PM CDT Sexual Orientation Straight 09/10/2022 12 :02 PM CDT documented as of this encounter Last Filed Vital Signs Vital Sign Reading Time Taken Comments Blood Pressure 140/63 09/17/2023 9:00 AM CDT Pulse 62 09/17/2023 9:00 AM CDT Temperature 36.3 ??C (97.3 ??F) 09/17/2023 9:00 AM CD T Respiratory Rate - - Oxygen Saturation - - Inhaled Oxygen Concentration - - Weight 89.1 kg (196 lb 6.9 oz) 09/17/2023 9:00 A M CDT Height - - Body Mass Index 26.72 09/10/2023 1:12 PM CDT documented in this encounter Plan of Treatment Upcoming Encounters Date Type Department Care Team (Latest Contact Info) Description 11/07/2023 3:15 PM CDT Clinical Communication Virtual Review in [place], [place] [address] [place] [address] 11/15/2023 6:40 AM CDT Lab Department of Laboratory Medicine and Pathology, [facility], in [address] [address] Loyda Lennon M.D. [address] [place] [phone] 11/15/2023 8:20 AM CDT Office Visit Department of Oncology in [address] [address] Manjit Velasquez APRN, C.N.P., D.N.P. [address] [place] [phone] 11/15/2023 9:30 AM CDT Comprehensive Visit Department of Palliative Care in [address] [address] Patty Gomez APRN, C.N.P., M.S.N. [address] [place] [phone] 11/15/2023 2:15 PM CDT Infusion Department of Oncology in [address] [address] Loyda Lennon M.D. [address] [place] [phone] 11/22/2023 7:30 AM CDT Lab Department of Oncology in [address] [address] Loyda Lennon M.D. [address] [place] [phone] 11/22/2023 8:45 AM CDT Infusion Department of Oncology in [address] [address] Loyda Lennon M.D. [address] [place] [phone] 11/28/2023 3:30 PM CDT Clinical Communication Virtual Review in [place], [place] 200 [place] [address] 11/29/2023 9:00 AM CDT Procedure visit Department of Urology in [place], [place] [address] [place] [phone] Mark Colorado M.D. [address] [place] [address] 11/29/2023 11:20 AM CDT Lab Department of Laboratory Medicine and Pathology, [facility] in [place], [place] [address] [place] [phone] Loyda Lennon M.D. [address] [place] [phone] 11/29/2023 11:30 AM CDT Lab Department of Oncology in [place], [place] [address] [place] [phone] Loyda Lennon M.D. [address] [place] [address] 11/29/2023 1:00 PM CDT Infusion Department of Oncology in [place], [place] [address] [place] [phone] Loyda Lennon M.D. [address] [place] [phone] 12/03/2023 1:45 PM CDT Comprehensive Visit Department of Urology in [place], [place] [address] [place] [phone] Mona Egan, PHoldenAKaterine [address] [place] [phone] 12/05/2023 1:20 PM CDT Comprehensive Visit Department of Oncology in [place], [place] [address] [place] [phone] Letty Kate M.D. [address] [place] [phone] 12/10/2023 3:00 PM CDT Clinical Communication Virtual Review in [place], [place] 200 [place] [address] 12/10/2023 3:30 PM CDT Procedure visit Department of Urology in [place], [place] [address] [place] [phone] Mark Colorado M.D. [address] [place] [address] 12/12/2023 3:45 PM CDT Appointment Department of Radiology, [facility], in [place], [place] [address] [place] [phone] Na Hernandez M.D., Ph.D. [address] [place] [phone] 12/13/2023 6:00 AM CDT Lab Department of Laboratory Medicine and Pathology, [facility], in [place], [place] [address] [place] [phone] Loyda Lennon M.D. [address] [place] [phone] 12/13/2023 6:20 AM CDT Lab Department of Infusion Therapy in [place], [place] [address] [place] [phone] Lyoda Lennon M.D. [address] [place] [phone] 12/13/2023 11:10 AM CDT Office Visit Department of Oncology in [place], [place] [address] [place] [phone] Na Hernandez M.D., Ph.D. [address] [place] [phone] 12/13/2023 1:00 PM CDT Infusion Department of Oncology in [place], [place] [address] [place] [phone] Loyda Lennon M.D. [address] [place] [phone] 12/20/2023 9:20 AM CDT Lab Department of Infusion Therapy in [address] [address] Loyda Lennon M.D. [address] [place] [phone] 12/20/2023 10:30 AM CDT Infusion Department of Oncology in [address] [address] Loyda Lennon M.D. [address] [place] [phone] 12/25/2023 10:30 AM CDT Appointment Division of Gastroenterology in [address] [address] Na Hernandez M.D., Ph.D. [address] [place] [phone] 12/27/2023 10:15 AM CDT Lab Department of Oncology in [address] [address] Loyda Lennon M.D. [address] [place] [phone] 12/27/2023 10:30 AM CDT Lab Department of Laboratory Medicine and Pathology, [facility] in [place], [place] [address] [place] [phone] Loyda Lennon M.D. [address] [place] [address] 12/27/2023 11:45 AM CDT Infusion Department of Oncology in [place], [place] [address] [place] [address] Loyda Lennon M.D. [address] [place] [phone] 01/03/2024 1:00 PM CDT Clinical Communication Virtual Review in [place], [place] 200 [place] [address] 01/10/2024 8:00 AM CDT Lab Department of Infusion Therapy in [place], [place] [address] [place] [phone] Loyda Lennon M.D. [address] [place] [phone] 01/10/2024 8:20 AM CDT Lab Department of Laboratory Medicine and Pathology, [facility], in [place], [place] [address] [place] [address] Loyda Lennon M.D. [address] [place] [phone] 01/10/2024 10:30 AM CDT Office Visit Department of Oncology in [place], [place] [address] [place] [phone] Na Hernandez M.D., Ph.D. [address] [place] [phone] 01/10/2024 11:45 AM CDT Infusion Department of Oncology in [place], [place] [address] [place] [phone] Loyda Lennon M.D. [address] [place] [phone] 01/17/2024 8:45 AM CDT Lab Department of Oncology in [place], [place] [address] [place] [phone] Loyda Lennon M.D. [address] [place] [address] 01/17/2024 10:00 AM CDT Infusion Department of Oncology in [place], [place] [address] [place] [address] Loyda Lennon M.D. [address] [place] [phone] 01/24/2024 8:00 AM CDT Lab Department of Laboratory Medicine and Pathology, [facility], in [place], [place] [address] [place] [phone] Loyda Lennon M.D. [address] [place] [phone] 01/24/2024 8:15 AM CDT Lab Department of Oncology in [place], [place] [address] [place] [phone] Loyda Lennon M.D. [address] [place] [phone] 01/24/2024 9:15 AM CDT Infusion Department of Oncology in [place], [place] [address] [place] [phone] Loyda Lennon M.D. [address] [place] [phone] Scheduled Procedures Name Priority Associated Diagnoses Date/Ti me HEPATECTOMY RESECTION LIVER Cholangiocarcinoma (HCC) ULTRASOUND LIVER Cholangiocarcinoma (HCC) RECONSTRUCTION PORTAL VEIN Cholangiocarcinoma (HCC) documented as of this encounter Visit Diagnoses Diagnosis Pure Hypercholesterolemia- Primary Cholangiocarcinoma (HCC) Peritoneal Carcinomatosis (HCC) Neutropenia Chemotherapy Induced (HCC) Logistics Intern Current Drug Therapy, Chemotherapy documented in this encounter Administered Medications Inactive Administered Medications - up to 3 most recent administrations Medication Order MAR Action Action Date Dose Rate Site dexAMETHasone injection 10 mg (DECADRON) 10 mg, intravenous, Once, On e 09/17/23 at 0930, For 1 dose Given 09/17/2023 9:16 AM CDT 10 mg diphenhydrAMINE 25 mg in NaCl 0.9% IVPB (BENADRYL) 25 mg, intravenous, at 101 mL/hr, Administer over 30 Minutes, Once, On e 09/17/23 at 0930, For 1 dose New Bag 09/17/2023 9:22 AM CDT 25 mg 101 mL/hr famotidine injection 20 mg (PEPCID) 20 mg, intravenous, Once, On 09/17/23 at 0930, For 1 dose Given 09/17/2023 9:16 AM CDT 20 mg ondansetron (PF) injection 8 mg (ZOFRAN) 8 mg, intravenous, Once, On e 09/17/23 at 0930, For 1 dose Given 09/17/2023 9:16 AM CDT 8 mg PACLitaxeL 126 mg in NaCl 0.9% (non-PVC/non-DEHP) 296 mL IVPB (TAXOL) 126 mg (rounded from 128.4 mg = 60 mg/m2 ? 2.14 m2 Treatment Plan BSA from Measured weight), intravenous, at 296 mL/hr, Administer over 1 Hours, Once, On e 09/17/23 at 1000, For 1 dose, Administer via 0.22 micron in-line filter. New Bag 09/17/2023 10:22 AM CDT 126 mg 296 mL/hr documented in this encounter Additional Health Concerns Infection Onset Date Last Indicated Resolved Time Protective Environment 11/07/2022 11/07/2022 documented as of this encounter Care Teams Assistant Controller Relationship Specialty Start Date End Date Mark Colorado M.D. [address] [place] [address] PCP - General Family Medicine 11/09/22 documented as of this encounter
--- OUTSIDE RECORDS SUMMARY | 2023-11-05 22:09 | XMS_ITS | Encounter Summary ---
Author Organization [facility] Address [address] [place] [address] Care Team Providers Care Hydro Plant Operator Name Role Phone Mark Colorado M.D. Primary Care Provider [phone] Encounter Details Date Type Department Care Team (Latest Contact Info) Description 09/17/2023 Orders Only Department of Oncology in [place], [place] [address] [place] [address] Omero Lopes Cholangiocarcinoma (HCC) (Primary Dx); Picker Feeder Current Drug Therapy, Chemotherapy; Peritoneal Carcinomatosis (HCC); [...] your living situation today? I have a [facility] place to live 09/10/2022 Sex and Gender Information Value Date Recorded Sex Assigned at Male 09/10/2022 12:02 PM CDT Gender Identity Male 09/10/2022 12:02 PM CDT Sexual Orientation Straight 09/10/2022 12 :02 PM CDT documented as of this encounter Plan of Treatment Upcoming Encounters Date Type Department Care Team (Latest Contact Info) Description 11/07/2023 3:15 PM CDT Clinical Communication Virtual Review in [place], [place] [address] [place] [address] 11/15/2023 6:40 AM CDT Lab Department of Laboratory Medicine and Pathology, [facility] in [address] [address] Loyda Lennon M.D. [address] [place] [phone] 11/15/2023 8:20 AM CDT Office Visit Department of Oncology in [address] [address] Manjit Velasquez APRN, C.N.P., D.N.P. [address] [place] [address] 11/15/2023 9:30 AM CDT Comprehensive Visit Department of Palliative Care in [address] [address] Patty Gomez APRN, C.N.P., M.S.N. [address] [place] [address] 11/15/2023 2:15 PM CDT Infusion Department of Oncology in [address] [address] Loyda Lennon M.D. [address] [place] [address] 11/22/2023 7:30 AM CDT Lab Department of Oncology in [place], [place] [address] [place] [phone] Loyda Lennon M.D. [address] [place] [address] 11/22/2023 8:45 AM CDT Infusion Department of Oncology in [place], [place] [address] [place] [phone] Loyda Lennon M.D. [address] [place] [address] 11/28/2023 3:30 PM CDT Clinical Communication Virtual Review in [place], [place] [address] [place] [address] 11/29/2023 9:00 AM CDT Procedure visit Department of Urology in [place], [place] [address] [place] [phone] Mark Colorado M.D. [place] [phone] 11/29/2023 11:20 AM CDT Lab Department of Laboratory Medicine and Pathology, [facility], in [place], [place] [address] [place] [phone] Loyda Lennon M.D. [address] [place] [phone] 11/29/2023 11:30 AM CDT Lab Department of Oncology in [place], [place] [address] [place] [phone] Loyda Lennon M.D. [address] [place] [address] 11/29/2023 1:00 PM CDT Infusion Department of Oncology in [place], [place] [address] [place] [phone] Loyda Lennon M.D. [address] [place] [address] 12/03/2023 1:45 PM CDT Comprehensive Visit Department of Urology in [place], [place] [address] [place] [phone] Mona Egan P.A.-C. [address] [place] [address] 12/05/2023 1:20 PM CDT Comprehensive Visit Department of Oncology in [place], [place] [address] [place] [phone] Letty Kate M.D. [address] [place] [address] 12/10/2023 3:00 PM CDT Clinical Communication Virtual Review in [place], [place] [address] [place] [address] 12/10/2023 3:30 PM CDT Procedure visit Department of Urology in [place], [place] [address] [place] [phone] Mark Colorado M.D. [address] [place] [address] [place] [address] 12/12/2023 3:45 PM CDT Appointment Department of Radiology, [facility], in [place], [place] [address] [place] [phone] Na Hernandez M.D., Ph.D. [address] [place] [phone] 12/13/2023 6:00 AM CDT Lab Department of Laboratory Medicine and Pathology, [facility], in [place], [place] [address] [place] [phone] Loyda Lennon M.D. [address] [place] [address] 12/13/2023 6:20 AM CDT Lab Department of Infusion Therapy in [place], [place] [address] [place] [phone] Loyda Lennon M.D. [address] [place] [address] 12/13/2023 11:10 AM CDT Office Visit Department of Oncology in [place], [place] [address] [place] [phone] Na Hernandez M.D., Ph.D. [address] [place] [address] 12/13/2023 1:00 PM CDT Infusion Department of Oncology in [address] [address] Loyda Lennon M.D. [address] [place] [address] 12/20/2023 9:20 AM CDT Lab Department of Infusion Therapy in [place], [place] [address] [place] [phone] Loyda Lennon M.D. [address] [place] [address] 12/20/2023 10:30 AM CDT Infusion Department of Oncology in [place], [place] [address] [place] [phone] Loyda Lennon M.D. [address] [place] [address] 12/25/2023 10:30 AM CDT Appointment Division of Gastroenterology in [place], [place] [address] [place] [phone] Na Hernandez M.D., Ph.D. [address] [place] [address] 12/27/2023 10:15 AM CDT Lab Department of Oncology in [place], [place] [address] [place] [phone] Loyda Lennon M.D. [address] [place] [address] 12/27/2023 10:30 AM CDT Lab Department of Laboratory Medicine and Pathology, [address] [address] Loyda Lennon M.D. [address] [place] [address] 12/27/2023 11:45 AM CDT Infusion Department of Oncology in [address] [address] Loyda Lennon M.D. [address] [place] [address] 01/03/2024 1:00 PM CDT Clinical Communication Virtual Review in [place], [place] [address] [place] [address] 01/10/2024 8:00 AM CDT Lab Department of Infusion Therapy in [address] [address] Loyda Lennon M.D. [address] [place] [phone] 01/10/2024 8:20 AM CDT Lab Department of Laboratory Medicine and Pathology, [facility] in [place], [place] [address] [place] [phone] Loyda Lennon M.D. [address] [place] [address] 01/10/2024 10:30 AM CDT Office Visit Department of Oncology in [place], [place] [address] [place] [phone] Na Hernandez M.D., Ph.D. [address] [place] [address] 01/10/2024 11:45 AM CDT Infusion Department of Oncology in [place], [place] [address] [place] [address] Loyda Lennon M.D. [address] [place] [address] 01/17/2024 8:45 AM CDT Lab Department of Oncology in [place], [place] [address] [place] [phone] Loyda Lennon M.D. [address] [place] [address] 01/17/2024 10:00 AM CDT Infusion Department of Oncology in [place], [place] [address] [place] [phone] Loyda Lennon M.D. [address] [place] [address] 01/24/2024 8:00 AM CDT Lab Department of Laboratory Medicine and Pathology, [facility], in [place], [place] [address] [place] [phone] Loyda Lennon M.D. [address] [place] [address] 01/24/2024 8:15 AM CDT Lab Department of Oncology in [place], [place] [address] [place] [address] Loyda Lennon M.D. [address] [place] [address] 01/24/2024 9:15 AM CDT Infusion Department of Oncology in [place], [place] [address] [place] [address] Loyda Lennon M.D. [address] [place] [address] Scheduled Procedures Name Priority Associated Diagnoses Date/Ti me HEPATECTOMY RESECTION LIVER Cholangiocarcinoma (HCC) ULTRASOUND LIVER Cholangiocarcinoma (HCC) RECONSTRUCTION PORTAL VEIN Cholangiocarcinoma (HCC) documented as of this encounter Visit Diagnoses Diagnosis Cholangiocarcinoma (HCC)- Primary Jail Current Drug Therapy, Chemotherapy Peritoneal Carcinomatosis (HCC) Neutropenia Chemotherapy Induced (HCC) documented in this encounter Additional Health Concerns Infection Onset Date Last Indicated Resolved Time Protective Environment 11/07/2022 11/07/2022 documented as of this encounter Care Teams Hydro Plant Operator Relationship Specialty Start Date End Date Mark Colorado M.D. [facility] [place] [phone] PCP - General Family Medicine 11/09/22 documented as of this encounter
--- OUTSIDE RECORDS SUMMARY | 2023-11-05 22:09 | XMS_ITS | Encounter Summary ---
Author Organization [facility] Address [address] [place] [address] Care Team Providers Care Leakage Tester Name Role Phone Mark Colorado M.D. Primary Care Provider [phone] Reason for Visit * Reason Onset Date Comments Blood Pressure 09/26/2023 Encounter Details Date Type Department Care Team (Latest Contact Info) Description 09/26/2023 9:45 AM CDT Clinical Communication Virtual Review in [place], [place] [address] [place] [address] Blood Pressure Social History Tobacco Use Types Packs/Day Years [...] I have a [facility] place to live 09/10/2022 Sex and Gender Information Value Date Recorded Sex Assigned at Male 09/10/2022 12:02 PM CDT Gender Identity Male 09/10/2022 12:02 PM CDT Sexual Orientation Straight 09/10/2022 12 :02 PM CDT documented as of this encounter Plan of Treatment Upcoming Encounters Date Type Department Care Team (Latest Contact Info) Description 11/07/2023 3:15 PM CDT Clinical Communication Virtual Review in [place], [place] 200 [place] [address] 11/15/2023 6:40 AM CDT Lab Department of Laboratory Medicine and Pathology, [facility] in [address] [phone] Loyda Lennon M.D. [address] [place] [address] 11/15/2023 8:20 AM CDT Office Visit Department of Oncology in [address] [address] Manjit Velasquez APRN, C.N.P., D.N.P. [address] [place] [phone] 11/15/2023 9:30 AM CDT Comprehensive Visit Department of Palliative Care in [address] [address] Patty Gomez APRN, C.N.P., M.S.N. [address] [place] [address] 11/15/2023 2:15 PM CDT Infusion Department of Oncology in [address] [address] Loyda Lennon M.D. [address] [place] [address] 11/22/2023 7:30 AM CDT Lab Department of Oncology in [place], [place] [address] [place] [phone] Loyda Lennon M.D. [address] [place] [address] 11/22/2023 8:45 AM CDT Infusion Department of Oncology in [place], [place] [address] [place] [phone] Loyda Lennon M.D. [address] [place] [phone] 11/28/2023 3:30 PM CDT Clinical Communication Virtual Review in [place], [place] [address] [place] [address] 11/29/2023 9:00 AM CDT Procedure visit Department of Urology in [place], [place] [address] [place] [phone] Mark Colorado M.D. [address] [place] [address] [place] [phone] 11/29/2023 11:20 AM CDT Lab Department of Laboratory Medicine and Pathology, [facility], in [place], [place] [address] [place] [phone] Loyda Lennon M.D. [address] [place] [phone] 11/29/2023 11:30 AM CDT Lab Department of Oncology in [place], [place] [address] [place] [address] Loyda Lennon M.D. [address] [place] [phone] 11/29/2023 1:00 PM CDT Infusion Department of Oncology in [place], [place] [address] [place] [phone] Loyda Lennon M.D. [address] [place] [address] 12/03/2023 1:45 PM CDT Comprehensive Visit Department of Urology in [place], [place] [address] [place] [phone] Mona Egan P.A.-C. [address] [place] [address] 12/05/2023 1:20 PM CDT Comprehensive Visit Department of Oncology in [place], [place] [address] [place] [phone] Letty Kate M.D. [address] [place] [address] 12/10/2023 3:00 PM CDT Clinical Communication Virtual Review in [place], [place] [address] [place] [address] 12/10/2023 3:30 PM CDT Procedure visit Department of Urology in [place], [place] [address] [place] [phone] Mark Colorado M.D. [facility] [place] [address] 12/12/2023 3:45 PM CDT Appointment Department of Radiology, [facility], in [place], [place] [address] [place] [phone] Na Hernandez M.D., Ph.D. [address] [place] [phone] 12/13/2023 6:00 AM CDT Lab Department of Laboratory Medicine and Pathology, [facility], in [place], [place] [address] [place] [phone] Loyda Lennon M.D. [address] [place] [address] 12/13/2023 6:20 AM CDT Lab Department of Infusion Therapy in [place], [place] [address] [place] [address] Loyda Lennon M.D. [address] [place] [address] 12/13/2023 11:10 AM CDT Office Visit Department of Oncology in [place], [place] [address] [place] [phone] Na Hernandez M.D., Ph.D. [address] [place] [phone] 12/13/2023 1:00 PM CDT Infusion Department of Oncology in [place], [place] [address] [place] [phone] Loyda Lennon M.D. [address] [place] [phone] 12/20/2023 9:20 AM CDT Lab Department of Infusion Therapy in [address] [address] Loyda Lennon M.D. [address] [place] [address] 12/20/2023 10:30 AM CDT Infusion Department of Oncology in [place], [place] [address] [place] [phone] Loyda Lennon M.D. [address] [place] [phone] 12/25/2023 10:30 AM CDT Appointment Division of Gastroenterology in [place], [place] [address] [place] [phone] Na Hernandez M.D., Ph.D. [address] [place] [address] 12/27/2023 10:15 AM CDT Lab Department of Oncology in [place], [place] [address] [place] [phone] Loyda Lennon M.D. [address] [place] [address] 12/27/2023 10:30 AM CDT Lab Department of Laboratory Medicine and Pathology, [facility] in [address] [address] Loyda Lennon M.D. [address] [place] [address] 12/27/2023 11:45 AM CDT Infusion Department of Oncology in [address] [address] Loyda Lennon M.D. [address] [place] [phone] 01/03/2024 1:00 PM CDT Clinical Communication Virtual Review in [address] [address] 01/10/2024 8:00 AM CDT Lab Department of Infusion Therapy in [address] [address] Loyda Lennon M.D. [address] [place] [phone] 01/10/2024 8:20 AM CDT Lab Department of Laboratory Medicine and Pathology, [facility] in [place], [place] [address] [place] [phone] Loyda Lennon M.D. [address] [place] [address] 01/10/2024 10:30 AM CDT Office Visit Department of Oncology in [place], [place] [address] [place] [phone] Na Hernandez M.D., Ph.D. [address] [place] [phone] 01/10/2024 11:45 AM CDT Infusion Department of Oncology in [place], [place] [address] [place] [phone] Loyda Lennon M.D. [address] [place] [phone] 01/17/2024 8:45 AM CDT Lab Department of Oncology in [place], [place] [address] [place] [phone] Loyda Lennon M.D. [address] [place] [address] 01/17/2024 10:00 AM CDT Infusion Department of Oncology in [address] [address] Loyda Lennon M.D. [address] [place] [phone] 01/24/2024 8:00 AM CDT Lab Department of Laboratory Medicine and Pathology, [facility], in [place], [place] [address] [place] [phone] Loyda Lennon M.D. [address] [place] [phone] 01/24/2024 8:15 AM CDT Lab Department of Oncology in [place], [place] [address] [place] [phone] Loyda Lennon M.D. [address] [place] [address] 01/24/2024 9:15 AM CDT Infusion Department of Oncology in [place], [place] [address] [place] [address] Loyda Lennon M.D. [address] [place] [address] Scheduled Procedures Name Priority Associated Diagnoses Date/Ti me HEPATECTOMY RESECTION LIVER Cholangiocarcinoma (HCC) ULTRASOUND LIVER Cholangiocarcinoma (HCC) RECONSTRUCTION PORTAL VEIN Cholangiocarcinoma (HCC) documented as of this encounter Visit Diagnoses Not on filedocumented in this encounter Additional Health Concerns Infection Onset Date Last Indicated Resolved Time Protective Environment 11/07/2022 11/07/2022 documented as of this encounter Care Teams Leakage Tester Relationship Specialty Start Date End Date Mark Colorado M.D. [address] [place] [address] PCP - General Family Medicine 11/09/22 documented as of this encounter
--- OUTSIDE RECORDS SUMMARY | 2023-11-05 22:09 | XMS_ITS | Encounter Summary ---
Author Organization [facility] Address [address] [place] [address] Care Team Providers Care Pension Manager Name Role Phone Mark Colorado M.D. 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 [address] [place] [address] Rst Onc Cruz [address] [place] [address] Referral ID Status Reason Start Date Expiration Date V isits Requested Visits Authorized [id number] Authorized 03/11/2023 03/31/2024 31 99 Encounter Details Date Type Department Care Team (Late st Contact Info) Description 09/24/2023 7:30 AM CDT Lab Department of Oncology in [place], [place] [address] [place] [address] Na Hernandez M.D., Ph.D. [address] [place] [phone] Pure Hypercholesterolemia (Primary Dx); Cholangiocarcinoma (HCC); Peritoneal Carcinomatosis (HCC); Neutropenia Chemotherapy Induced (HCC); Halfway Current Drug Therapy, Chemotherapy Social History Tobacco [...] your living situation today? I have a [facility] to live 09/10/2022 Sex and Gender Information Value Date Recorded Sex Assigned at Male 09/10/2022 12:02 PM CDT Gender Identity Male 09/10/2022 12:02 PM CDT Sexual Orientation Straight 09/10/2022 12 :02 PM CDT documented as of this encounter Plan of Treatment Upcoming Encounters Date Type Department Care Team (Latest Contact Info) Description 11/07/2023 3:15 PM CDT Clinical Communication Virtual Review in [place], [place] [address] [place] [address] 11/15/2023 6:40 AM CDT Lab Department of Laboratory Medicine and Pathology, [facility], in [place], [place] [address] [place] [phone] Loyda Lennon M.D. [address] [place] [phone] 11/15/2023 8:20 AM CDT Office Visit Department of Oncology in [place], [place] [address] [place] [phone] Manjit Velasquez APRN C.N.P., D.N.P. [address] [place] [phone] 11/15/2023 9:30 AM CDT Comprehensive Visit Department of Palliative Care in [place], [place] [address] [place] [phone] Patty Gomez APRN C.N.P., M.S.N. [address] [place] [phone] 11/15/2023 2:15 PM CDT Infusion Department of Oncology in [place], [place] [address] [place] [phone] Loyda Lennon M.D. [address] [place] [phone] 11/22/2023 7:30 AM CDT Lab Department of Oncology in [address] [phone] Loyda Lennon M.D. [address] [place] [phone] 11/22/2023 8:45 AM CDT Infusion Department of Oncology in [address] [phone] Loyda Lennon M.D. [address] [place] [phone] 11/28/2023 3:30 PM CDT Clinical Communication Virtual Review in [place], [place] [address] [place] [address] 11/29/2023 9:00 AM CDT Procedure visit Department of Urology in [place], [place] [address] [place] [phone] Mark Colorado M.D. [address] [place] [phone] 11/29/2023 11:20 AM CDT Lab Department of Laboratory Medicine and Pathology, [facility], in [place], [place] [address] [place] [phone] Loyda Lennon M.D. [address] [place] [phone] 11/29/2023 11:30 AM CDT Lab Department of Oncology in [place], [place] [address] [place] [phone] Loyda Lennon M.D. [address] [place] [phone] 11/29/2023 1:00 PM CDT Infusion Department of Oncology in [place], [place] [address] [place] [phone] Loyda Lennon M.D. [address] [place] [phone] 12/03/2023 1:45 PM CDT Comprehensive Visit Department of Urology in [address] [address] Mona Egan, PHoldenAHolden-Sara [address] [place] [phone] 12/05/2023 1:20 PM CDT Comprehensive Visit Department of Oncology in [place], [place] [address] [place] [phone] Letty Kate M.D. [address] [place] [phone] 12/10/2023 3:00 PM CDT Clinical Communication Virtual Review in [place], [place] [address] [place] [address] 12/10/2023 3:30 PM CDT Procedure visit Department of Urology in [place], [place] [address] [place] [phone] Mark Colorado M.D. [address] [place] [phone] 12/12/2023 3:45 PM CDT Appointment Department of Radiology, [facility], in [place], [place] [address] [place] [phone] Na Hernandez M.D., Ph.D. [address] [place] [phone] 12/13/2023 6:00 AM CDT Lab Department of Laboratory Medicine and Pathology, [facility] in [place], [place] [address] [place] [phone] Loyda Lennon M.D. [address] [place] [phone] 12/13/2023 6:20 AM CDT Lab Department of Infusion Therapy in [place], [place] [address] [place] [phone] Loyda Lennon M.D. [address] [place] [phone] 12/13/2023 11:10 AM CDT Office Visit Department of Oncology in [place], [place] [address] [place] [phone] Na Hernandez M.D., Ph.D. [address] [place] [phone] 12/13/2023 1:00 PM CDT Infusion Department of Oncology in [place], [place] [address] [place] [phone] Loyda Lennon M.D. [address] [place] [phone] 12/20/2023 9:20 AM CDT Lab Department of Infusion Therapy in [place], [place] [address] [place] [phone] Loyda Lennon M.D. [address] [place] [phone] 12/20/2023 10:30 AM CDT Infusion Department of Oncology in [place], [place] [address] [place] [phone] Loyda Lennon M.D. [address] [place] [phone] 12/25/2023 10:30 AM CDT Appointment Division of Gastroenterology in [place], [place] [address] [place] [phone] Na Hernandez M.D., Ph.D. [address] [place] [phone] 12/27/2023 10:15 AM CDT Lab Department of Oncology in [address] [phone] Loyda Lennon M.D. [address] [place] [phone] 12/27/2023 10:30 AM CDT Lab Department of Laboratory Medicine and Pathology, [facility], in [place], [place] [address] [place] [phone] Loyda Lennon M.D. [address] [place] [phone] 12/27/2023 11:45 AM CDT Infusion Department of Oncology in [address] [place] [phone] Loyda Lennon M.D. [address] [place] [phone] 01/03/2024 1:00 PM CDT Clinical Communication Virtual Review in [place], [place] [address] [place] [address] 01/10/2024 8:00 AM CDT Lab Department of Infusion Therapy in [place], [place] [address] [place] [phone] Loyda Lennon M.D. [address] [place] [phone] 01/10/2024 8:20 AM CDT Lab Department of Laboratory Medicine and Pathology, [facility], in [place], [place] [address] [place] [phone] Loyda Lennon M.D. [address] [place] [phone] 01/10/2024 10:30 AM CDT Office Visit Department of Oncology in [address] [phone] Na Hernandez M.D., Ph.D. [address] [place] [phone] 01/10/2024 11:45 AM CDT Infusion Department of Oncology in [address] [phone] Loyda Lennon M.D. [address] [place] [phone] 01/17/2024 8:45 AM CDT Lab Department of Oncology in [place], [place] [address] [place] [phone] Loyda Lennon M.D. [address] [place] [phone] 01/17/2024 10:00 AM CDT Infusion Department of Oncology in [place], [place] [address] [place] [phone] Loyda Lennon M.D. [address] [place] [phone] 01/24/2024 8:00 AM CDT Lab Department of Laboratory Medicine and Pathology, [facility] in [place], [place] [address] [place] [phone] Loyda Lennon M.D. [address] [place] [phone] 01/24/2024 8:15 AM CDT Lab Department of Oncology in [place], [place] [address] [place] [phone] Loyda Lennon M.D. [address] [place] [phone] 01/24/2024 9:15 AM CDT Infusion Department of Oncology in [place], [place] [address] [place] [phone] Loyda Lennon M.D. [address] [place] [phone] Scheduled Procedures Name Priority Associated Diagnoses Date/Ti me HEPATECTOMY RESECTION LIVER Cholangiocarcinoma (HCC) ULTRASOUND LIVER Cholangiocarcinoma (HCC) RECONSTRUCTION PORTAL VEIN Cholangiocarcinoma (HCC) documented as of this encounter Procedures Procedure Name Priority Date/Time Associated Diagnosis Comments TROPONIN I, HIGH SENSITIVITY, P Routine 09/24/2023 7:21 AM CDT Cholangiocarcinoma (HCC) Peritoneal Carcinomatosis (HCC) Neutropenia Chemotherapy Induced (HCC) Halfway Current Drug Therapy, Chemotherapy NT-PRO B-TYPE NATRIURETIC PEPTIDE (BNP), S Routine 09/24/2023 7:21 AM CDT Cholangiocarcinoma (HCC) Peritoneal Carcinomatosis (HCC) Neutropenia Chemotherapy Induced (HCC) Telegraph Operator Current Drug Therapy, Chemotherapy CBC WITH DIFFERENTIAL, B Routine 09/24/2023 7:21 AM CDT Cholangiocarcinoma (HCC) Peritoneal Carcinomatosis (HCC) Neutropenia Chemotherapy Induced (HCC) Telegraph Operator Current Drug Therapy, Chemotherapy URIC ACID, S/P Routine 09/24/2023 7:21 AM CDT Cholangiocarcinoma (HCC) Peritoneal Carcinomatosis (HCC) Neutropenia Chemotherapy Induced (HCC) Halfway Current Drug Therapy, Chemotherapy PHOSPHORUS (INORGANIC), S Routine 09/24/2023 7:21 AM CDT Cholangiocarcinoma (HCC) Peritoneal Carcinomatosis (HCC) Neutropenia Chemotherapy Induced (HCC) Halfway Current Drug Therapy, Chemotherapy MAGNESIUM, S Routine 09/24/2023 7:21 AM CDT Cholangiocarcinoma (HCC) Peritoneal Carcinomatosis (HCC) Neutropenia Chemotherapy Induced (HCC) Halfway Current Drug Therapy, Chemotherapy LIPASE, S/P Routine 09/24/2023 7:21 AM CDT Cholangiocarcinoma (HCC) Peritoneal Carcinomatosis (HCC) Neutropenia Chemotherapy Induced (HCC) Halfway Current Drug Therapy, Chemotherapy LACTATE DEHYDROGENASE (LD), S Routine 09/24/2023 7:21 AM CDT Cholangiocarcinoma (HCC) Peritoneal Carcinomatosis (HCC) Neutropenia Chemotherapy Induced (HCC) Halfway Current Drug Therapy, Chemotherapy AMYLASE, TOT, S Routine 09/24/2023 7:21 AM CDT Cholangiocarcinoma (HCC) Peritoneal Carcinomatosis (HCC) Neutropenia Chemotherapy Induced (HCC) Telegraph Operator Current Drug Therapy, Chemotherapy COMPREHENSIVE METABOLIC PANEL, S/P Routine 09/24/2023 7:21 AM CDT Cholangiocarcinoma (HCC) Peritoneal Carcinomatosis (HCC) Neutropenia Chemotherapy Induced (HCC) Telegraph Operator Current Drug Therapy, Chemotherapy documented in this encounter Results * NT-Pro B-Type Natriuretic Peptide (BNP) (09/24/2023 7:21 AM CDT) NT-Pro BNP 138 <=540 pg/mL 09/24/2023 8:45 AM CDT DTL Comment: NT-proBNP values less [...] absence of renal failure. Blood (Blood, Venous) 09/24/2023 7:21 AM CDT 09/24/2023 8:01 AM CDT Na Hernandez M.D., Ph.D. LAB BLOOD A DD-ON Performing Organization Address City/[facility]/[place] [address] * Troponin I, High Sensitivity (09/24/2023 7:21 AM CDT) [facility] TROPONIN I, HIGH SENSITIVITY, P 4 <=20 ng/L 09/25/2023 8:30 AM CDT DT Blood (Blood, Venous) 09/24/2023 7:21 AM CDT 09/24/2023 7:59 AM CDT Na Hernandez M.D., Ph.D. LAB BLOOD N ON ADD-ON Performing Organization Address City/[facility]/ZIP Co de Phone Number [facility] [address] [place] [address] * Lipase (09/24/2023 7:21 AM CDT) Pathologist [facility] Lipase, S 44 13 - 60 U/L 09/24/2023 8: 45 AM CDT DTL Blood (Blood, Venous) 09/24/2023 7:21 AM CDT 09/24/2023 8:01 AM CDT Na Hernandez M.D., Ph.D. LAB BLOOD A DD-ON Performing Organization Address City/[facility]/ZIP Co de Phone Number [facility] [address] [place], [place] [phone] [place] [address] 200 [place] [address] * Amylase, Total (09/24/2023 7:21 AM CDT) Amylase, Total, S 43 28 - 100 U/L 09/24/2023 8:45 AM CDT DTL Blood (Blood, Venous) 09/24/2023 7:21 AM CDT 09/24/2023 8:01 AM CDT Na Hernandez M.D., Ph.D. LAB BLOOD A DD-ON Performing Organization Address [facility] Co de Phone Number [facility] [address] [place], [place] [phone] [place] [address] 200 [place] [address] * Phosphorus Inorganic (09/24/2023 7:21 AM CDT) Phosphorus (Inorganic), S 2.6 2.5 - 4.5 mg/dL 09/24/2023 8:45 AM CDT DTL Blood (Blood, Venous) 09/24/2023 7:21 AM CDT 09/24/2023 8:01 AM CDT Na Hernandez M.D., Ph.D. LAB BLOOD A DD-ON Performing Organization Address City/[facility]/ZIP Co de Phone Number [facility] [address] [place], [place] [phone] [place] [address] 200 [place] [address] * Magnesium (09/24/2023 7:21 AM CDT) [facility] Magnesium, S 2.0 1.7 - 2.3 mg/dL 09/24/2023 8:45 AM CDT DTL Blood (Blood, Venous) 09/24/2023 7:21 AM CDT 09/24/2023 8:01 AM CDT Na Hernandez M.D., Ph.D. LAB BLOOD A DD-ON Performing Organization Address City/[facility] Co de Phone Number [facility] [address] [place] [address], [facility] 200 [place] [address] * Uric Acid (09/24/2023 7:21 AM CDT) [facility] Uric Acid, S 6.0 3.7 - 8.0 mg/dL 09/24/2023 8:45 AM CDT DT Blood (Blood, Venous) 09/24/2023 7:21 AM CDT 09/24/2023 8:01 AM CDT Na Hernandez M.D., Ph.D. LAB BLOOD A DD-ON Performing Organization Address [facility] Co de Phone Number [facility] [address] [place] [address], [facility] [address] [place] [address] * LD (Lactate Dehydrogenase) (09/24/2023 7:21 AM CDT) [facility] LD 160 122 - 222 U/L 09/24/2023 8:31 AM CDT DTL Blood (Blood, Venous) 09/24/2023 7:21 AM CDT 09/24/2023 8:00 AM CDT Na Hernandez M.D., Ph.D. LAB BLOOD N ON ADD-ON [facility] [address] [place] [address], [facility] [[email or web address]] DTL [facility] [address] [place] [address] * (ABNORMAL) Comprehensive Metabolic Panel (09/24/2023 7:21 AM CDT) Pathologist [facility] Potassium, S 4.6 3.6 - 5.2 mmol/L 09/24/2023 8:45 AM CDT DTL Sodium, S 141 135 - 145 mmol/L 09/24/2023 8:45 AM CDT DTL Chloride, S 112(H) 98 - 107 mmol/L 09/24/2023 8:45 AM CDT DTL Bicarbonate, S 22 22 - 29 mmol/L 09/24/2023 8:45 AM CDT DTL Anion Gap 7 7 - 15 09/24/2023 8:45 AM CDT DTL BUN (Blood Urea Nitrogen), S 30(H) 8 - 24 mg/dL 09/24/2023 8:45 AM CDT DTL Creatinine 1.39(H) 0.74 - 1.35 mg/dL 09/24/2023 8:45 AM CDT DTL Estimated GFR (eGFR) 55(L) >=60 mL/min/BS A 09/24/2023 8:45 AM CDT DTL Comment: Estimated GFR calculated using the 2020 CKD_EPI creatinine equation. Calcium, Total, S 8.3(L) 8.8 - 10.2 mg/dL 09/24/2023 8:45 AM CDT DTL Glucose, S 139 70 - 140 mg/dL 09/24/2023 8:45 AM CDT DTL Protein, Total, S 5.6(L) 6.3 - 7.9 g/dL 09/24/2023 8:45 AM CDT DTL Albumin, S 3.5 3.5 - 5.0 g/dL 09/24/2023 8:45 AM CDT DTL Aspartate Aminotransferase (AST), S 18 8 - 48 U/L 09/24/2023 8:45 AM CDT DTL Alkaline Phosphatase, S 80 40 - 129 U/L 09/24/2023 8:45 AM CDT DTL Alanine Aminotransferase (ALT), S 19 7 - 55 U/L 09/24/2023 8:45 AM CDT DTL Bilirubin, Total, S 0.2 0.0 - 1.2 mg/dL 09/24/2023 8:45 AM CDT DTL Blood (Blood, Venous) 09/24/2023 7:21 AM CDT 09/24/2023 8:01 AM CDT Na Hernandez M.D., Ph.D. LAB BLOOD A DD-ON [facility] [address] [place] [address], [facility] [[email or web address]] [facility] [address] [place] [address] * (ABNORMAL) CBC with Differential, Blood (09/24/2023 7:21 AM CDT) Hemoglobin 8.9(L) 13.2 - 16.6 g/dL 09/24/2023 8:07 AM CDT DTL Hematocrit 27.2(L) 38.3 - 48.6 % 09/24/2023 8:07 AM CDT DTL Erythrocytes 2.71(L) 4.35 - 5.65 x10(12)/L 09/24/2023 8:07 AM CDT DTL MCV 100.4(H) 78.2 - 97.9 fL 09/24/2023 8:07 AM CDT DTL RBC Distrib Width 16.7(H) 11.8 - 14.5 % 09/24/2023 8:07 AM CDT DTL Platelet Count 160 135 - 317 x10(9)/L 09/24/2023 8:07 AM CDT DTL Leukocytes 2.9(L) 3.4 - 9.6 x10(9)/L 09/24/2023 8:07 AM CDT DTL Neutrophils 1.88 1.56 - 6.45 x10(9)/L 09/24/2023 8:07 AM CDT DHPM Lymphocytes 0.59(L) 0.95 - 3.07 x10(9)/L 09/24/2023 8:07 AM CDT DTL Monocytes 0.28 0.26 - 0.81 x10(9)/L 09/24/2023 8:07 AM CDT DTL Eosinophils 0.10 0.03 - 0.48 x10(9)/L 09/24/2023 8:07 AM CDT DTL Basophils 0.03 0.01 - 0.08 x10(9)/L 09/24/2023 8:07 AM CDT DTL Blood (Blood, Venous) 09/24/2023 7:21 AM CDT 09/24/2023 7:43 AM CDT Na Hernandez M.D., Ph.D. 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 5 mL (500 units) of Heparin 100 units/mL to each port/lumen. When IVAD not accessed or infusing: When no infusion to maintain patency flush every 28 days following NaCL flush. 5 mL (500 units) of Heparin 100 units/mL to each port/lumen. Given 09/24/2023 7:18 AM CDT 500 Units documented in this encounter Additional Health Concerns Infection Onset Date Last Indicated Resolved Time Protective Environment 11/07/2022 11/07/2022 documented as of this encounter Care Teams Pension Manager Relationship Specialty Start Date End Date Mark [place] M.D. [address] [place] [phone] PCP - General Family Medicine 11/09/22 documented as of this encounter
--- OUTSIDE RECORDS SUMMARY | 2023-11-05 22:09 | XMS_ITS | Encounter Summary ---
Author Organization [facility] Address [address] [place] [address] Care Team Providers Care Distribution Operations Supervisor Name Role Phone Mark Colorado M.D. Primary Care Provider [phone] Reason for Visit * Reason Comments Med Refill Encounter Details Date Type Department Care Team (Late st Contact Info) Description 09/20/2023 Refill Department of Oncology in [place], [place] [address] [place] [phone] Ykuo Pennington MPAS, P.A.-C. [address] [place] [address] Med Refill Social History Tobacco Use Types [...] [facility] live 09/10/2022 Sex and Gender Information Value Date Recorded Sex Assigned at Male 09/10/2022 12:02 PM CDT Gender Identity Male 09/10/2022 12:02 PM CDT Sexual Orientation Straight 09/10/2022 12 :02 PM CDT documented as of this encounter Plan of Treatment Upcoming Encounters Date Type Department Care Team (Latest Contact Info) Description 11/07/2023 3:15 PM CDT Clinical Communication Virtual Review in [place], [place] [address] [place] [address] 11/15/2023 6:40 AM CDT Lab Department of Laboratory Medicine and Pathology, [facility] in [place], [place] [address] [place] [phone] Loyda Lennon M.D. [address] [place] [phone] 11/15/2023 8:20 AM CDT Office Visit Department of Oncology in [address] [address] Manjit Velasquez APRN, C.N.P., D.N.P. [address] [place] [address] 11/15/2023 9:30 AM CDT Comprehensive Visit Department of Palliative Care in [address] [address] Patty Gomez APRN, C.N.P., M.S.N. [address] [place] [address] 11/15/2023 2:15 PM CDT Infusion Department of Oncology in [place], [place] [address] [place] [address] Loyda Lennon M.D. [address] [place] [address] 11/22/2023 7:30 AM CDT Lab Department of Oncology in [place], [place] [address] [place] [phone] Loyda Lennon M.D. [address] [place] [address] 11/22/2023 8:45 AM CDT Infusion Department of Oncology in [place], [place] [address] [place] [phone] Loyda Lennon M.D. [address] [place] [phone] 11/28/2023 3:30 PM CDT Clinical Communication Virtual Review in [place], [place] [address] [place] [address] 11/29/2023 9:00 AM CDT Procedure visit Department of Urology in [place], [place] [address] [place] [phone] Mark Colorado M.D. [address] [place] [address] [place] [address] 11/29/2023 11:20 AM CDT Lab Department of Laboratory Medicine and Pathology, [facility] in [place], [place] [address] [place] [phone] Loyda Lennon M.D. [address] [place] [phone] 11/29/2023 11:30 AM CDT Lab Department of Oncology in [place], [place] [address] [place] [phone] Loyda Lennon M.D. [address] [place] [address] 11/29/2023 1:00 PM CDT Infusion Department of Oncology in [place], [place] [address] [place] [phone] Loyda Lennon M.D. [address] [place] [address] 12/03/2023 1:45 PM CDT Comprehensive Visit Department of Urology in [place], [place] [address] [place] [phone] Mona Egan P.A.-C. [address] [place] [address] 12/05/2023 1:20 PM CDT Comprehensive Visit Department of Oncology in [address] [address] Letty Kate M.D. [address] [place] [phone] 12/10/2023 3:00 PM CDT Clinical Communication Virtual Review in [place], [place] [address] [place] [address] 12/10/2023 3:30 PM CDT Procedure visit Department of Urology in [place], [place] [address] [place] [phone] Mark Colorado M.D. [facility] [place] [address] 12/12/2023 3:45 PM CDT Appointment Department of Radiology, [facility], in [place], [place] [address] [place] [phone] Na Hernandez M.D., Ph.D. [address] [place] [phone] 12/13/2023 6:00 AM CDT Lab Department of Laboratory Medicine and Pathology, [facility], in [place], [place] [address] [place] [phone] Loyda Lennon M.D. [address] [place] [phone] 12/13/2023 6:20 AM CDT Lab Department of Infusion Therapy in [place], [place] [address] [place] [phone] Loyda Lennon M.D. [address] [place] [address] 12/13/2023 11:10 AM CDT Office Visit Department of Oncology in [place], [place] [address] [place] [phone] Na Hernandez M.D., Ph.D. [address] [place] [address] 12/13/2023 1:00 PM CDT Infusion Department of Oncology in [address] [address] Loyda Lennon M.D. [address] [place] [address] 12/20/2023 9:20 AM CDT Lab Department of Infusion Therapy in [address] [address] Loyda Lennon M.D. [address] [place] [phone] 12/20/2023 10:30 AM CDT Infusion Department of Oncology in [place], [place] [address] [place] [phone] Loyda Lennon M.D. [address] [place] [address] 12/25/2023 10:30 AM CDT Appointment Division of Gastroenterology in [place], [place] [address] [place] [phone] Na Hernandez M.D., Ph.D. [address] [place] [phone] 12/27/2023 10:15 AM CDT Lab Department of Oncology in [place], [place] [address] [place] [phone] Loyda Lennon M.D. [address] [place] [address] 12/27/2023 10:30 AM CDT Lab Department of Laboratory Medicine and Pathology, [facility] in [place], [place] [address] [place] [phone] Loyda Lennon M.D. [address] [place] [address] 12/27/2023 11:45 AM CDT Infusion Department of Oncology in [address] [address] Loyda Lennon M.D. [address] [place] [phone] 01/03/2024 1:00 PM CDT Clinical Communication Virtual Review in [place], [place] [address] [place] [address] 01/10/2024 8:00 AM CDT Lab Department of Infusion Therapy in [address] [address] Loyda Lennon M.D. [address] [place] [address] 01/10/2024 8:20 AM CDT Lab Department of Laboratory Medicine and Pathology, [facility] in [place], [place] [address] [place] [phone] Loyda Lennon M.D. [address] [place] [address] 01/10/2024 10:30 AM CDT Office Visit Department of Oncology in [place], [place] [address] [place] [phone] Na Hernandez M.D., Ph.D. [address] [place] [address] 01/10/2024 11:45 AM CDT Infusion Department of Oncology in [place], [place] [address] [place] [address] Loyda Lennon M.D. [address] [place] [address] 01/17/2024 8:45 AM CDT Lab Department of Oncology in [place], [place] [address] [place] [address] Loyda Lennon M.D. [address] [place] [address] 01/17/2024 10:00 AM CDT Infusion Department of Oncology in [place], [place] [address] [place] [phone] Loyda Lennon M.D. [address] [place] [address] 01/24/2024 8:00 AM CDT Lab Department of Laboratory Medicine and Pathology, [facility], in [place], [place] [address] [place] [address] Loyda Lennon M.D. [address] [place] [address] 01/24/2024 8:15 AM CDT Lab Department of Oncology in [place], [place] [address] [place] [address] Loyda Lennon M.D. [address] [place] [address] 01/24/2024 9:15 AM CDT Infusion Department of Oncology in [place], [place] [address] [place] [address] Loyda Lennon M.D. [address] [place] [phone] Scheduled Procedures Name Priority Associated Diagnoses Date/Ti me HEPATECTOMY RESECTION LIVER Cholangiocarcinoma (HCC) ULTRASOUND LIVER Cholangiocarcinoma (HCC) RECONSTRUCTION PORTAL VEIN Cholangiocarcinoma (HCC) documented as of this encounter Visit Diagnoses Not on filedocumented in this encounter Additional Health Concerns Infection Onset Date Last Indicated Resolved Time Protective Environment 11/07/2022 11/07/2022 documented as of this encounter Care Teams Distribution Operations Supervisor Relationship Specialty Start Date End Date Mark Colorado M.D. [address] [place] [address] PCP - General Family Medicine 11/09/22 documented as of this encounter
--- OUTSIDE RECORDS SUMMARY | 2023-11-05 22:09 | XMS_ITS | Encounter Summary ---
Author Organization [facility] Address [address] [place] [address] Care Team Providers Care Case Making Machine Operator Name Role Phone Mark Colorado M.D. Primary Care Provider [phone] Reason for Visit * Episode Based Medications (Routine) - Authorized Specialty Diagnoses / Procedures Referred By Contac t Referred To Contact Diagnoses Cholangiocarcinoma (HCC) Correction Current Drug Therapy, Chemotherapy Peritoneal Carcinomatosis (HCC) Neutropenia Chemotherapy Induced (HCC) Procedures NE ONDANSETRON HCL INJECTION NE PACLITAXEL INJECTION NE INJECTION, DARINEL ONC Yuko Pennington MPAS, P.A.-C. [address] [place] [address] Rst Onc Cruz [address] [place] [address] Referral ID Status Reason Start Date Expiration Date V isits Requested Visits Authorized [id number] Authorized 03/11/2023 03/31/2024 31 99 Encounter Details Date Type Department Care Team (Late st Contact Info) Description 09/17/2023 7:15 AM CDT Lab Department of Oncology in [place], [place] [address] [place] [address] Na Hernandez M.D., Ph.D. [address] [place] [phone] Pure Hypercholesterolemia (Primary Dx); Cholangiocarcinoma (HCC); Peritoneal Carcinomatosis (HCC); Neutropenia Chemotherapy Induced (HCC); Correction Current Drug Therapy, Chemotherapy Social History Tobacco [...] your living situation today? I have a [facility] place to live 09/10/2022 Sex and Gender Information Value Date Recorded Sex Assigned at Male 09/10/2022 12:02 PM CDT Gender Identity Male 09/10/2022 12:02 PM CDT Sexual Orientation Straight 09/10/2022 12 :02 PM CDT documented as of this encounter Plan of Treatment Upcoming Encounters Date Type Department Care Team (Latest Contact Info) Description 11/07/2023 3:15 PM CDT Clinical Communication Virtual Review in [place], [place] 200 [place] [address] 11/15/2023 6:40 AM CDT Lab Department of Laboratory Medicine and Pathology, [facility], in [place], [place] [address] [place] [phone] Loyda Lennon M.D. [address] [place] [phone] 11/15/2023 8:20 AM CDT Office Visit Department of Oncology in [place], [place] [address] [place] [phone] Manjit Velasquez APRN C.N.P., D.N.P. [address] [place] [phone] 11/15/2023 9:30 AM CDT Comprehensive Visit Department of Palliative Care in [place], [place] [address] [place] [phone] Patty Gomez APRN C.N.P., M.S.N. [address] [place] [phone] 11/15/2023 2:15 PM CDT Infusion Department of Oncology in [place], [place] [address] [place] [phone] Loyda Lennon M.D. [address] [place] [phone] 11/22/2023 7:30 AM CDT Lab Department of Oncology in [address] [address] Loyda Lennon M.D. [address] [place] [phone] 11/22/2023 8:45 AM CDT Infusion Department of Oncology in [address] [address] Loyda Lennon M.D. [address] [place] [phone] 11/28/2023 3:30 PM CDT Clinical Communication Virtual Review in [place], [place] [address] [place] [address] 11/29/2023 9:00 AM CDT Procedure visit Department of Urology in [place], [place] [address] [place] [phone] Mark Colorado M.D. [address] [place] [address] 11/29/2023 11:20 AM CDT Lab Department of Laboratory Medicine and Pathology, [facility], in [place], [place] [address] [place] [phone] Loyda Lennon M.D. [address] [place] [phone] 11/29/2023 11:30 AM CDT Lab Department of Oncology in [place], [place] [address] [place] [address] Loyda Lennon M.D. [address] [place] [phone] 11/29/2023 1:00 PM CDT Infusion Department of Oncology in [place], [place] [address] [place] [address] Loyda Lennon M.D. [address] [place] [phone] 12/03/2023 1:45 PM CDT Comprehensive Visit Department of Urology in [address] [address] Mona Egan, PHoldenAHolden-Sara [address] [place] [address] 12/05/2023 1:20 PM CDT Comprehensive Visit Department of Oncology in [place], [place] [address] [place] [phone] Letty Kate M.D. [address] [place] [phone] 12/10/2023 3:00 PM CDT Clinical Communication Virtual Review in [place], [place] [address] [place] [address] 12/10/2023 3:30 PM CDT Procedure visit Department of Urology in [place], [place] [address] [place] [phone] Mark Colorado M.D. [address] [place] [address] 12/12/2023 3:45 PM CDT Appointment Department of Radiology, [facility], in [place], [place] [address] [place] [phone] Na Hernandez M.D., Ph.D. [address] [place] [phone] 12/13/2023 6:00 AM CDT Lab Department of Laboratory Medicine and Pathology, [facility] in [place], [place] [address] [place] [phone] Loyda Lennon M.D. [address] [place] [phone] 12/13/2023 6:20 AM CDT Lab Department of Infusion Therapy in [place], [place] [address] [place] [phone] Loyda Lennon M.D. [address] [place] [phone] 12/13/2023 11:10 AM CDT Office Visit Department of Oncology in [place], [place] [address] [place] [phone] Na Hernandez M.D., Ph.D. [address] [place] [phone] 12/13/2023 1:00 PM CDT Infusion Department of Oncology in [place], [place] [address] [place] [address] Loyda Lennon M.D. [address] [place] [phone] 12/20/2023 9:20 AM CDT Lab Department of Infusion Therapy in [place], [place] [address] [place] [phone] Loyda Lennon M.D. [address] [place] [phone] 12/20/2023 10:30 AM CDT Infusion Department of Oncology in [place], [place] [address] [place] [phone] Loyda Lennon M.D. [address] [place] [phone] 12/25/2023 10:30 AM CDT Appointment Division of Gastroenterology in [place], [place] [address] [place] [phone] Na Hernandez M.D., Ph.D. [address] [place] [phone] 12/27/2023 10:15 AM CDT Lab Department of Oncology in [address] [address] Loyda Lennon M.D. [address] [place] [phone] 12/27/2023 10:30 AM CDT Lab Department of Laboratory Medicine and Pathology, [facility], in [place], [place] [address] [place] [phone] Loyda Lennon M.D. [address] [place] [phone] 12/27/2023 11:45 AM CDT Infusion Department of Oncology in [address] [place] [address] Loyda Lennon M.D. [address] [place] [phone] 01/03/2024 1:00 PM CDT Clinical Communication Virtual Review in [place], [place] [address] [place] [address] 01/10/2024 8:00 AM CDT Lab Department of Infusion Therapy in [place], [place] [address] [place] [phone] Loyda Lennon M.D. [address] [place] [phone] 01/10/2024 8:20 AM CDT Lab Department of Laboratory Medicine and Pathology, [facility], in [place], [place] [address] [place] [phone] Loyda Lennon M.D. [address] [place] [phone] 01/10/2024 10:30 AM CDT Office Visit Department of Oncology in [address] [address] Na Hernandez M.D., Ph.D. [address] [place] [phone] 01/10/2024 11:45 AM CDT Infusion Department of Oncology in [address] [address] Loyda Lennon M.D. [address] [place] [phone] 01/17/2024 8:45 AM CDT Lab Department of Oncology in [place], [place] [address] [place] [phone] Loyda Lennon M.D. [address] [place] [phone] 01/17/2024 10:00 AM CDT Infusion Department of Oncology in [place], [place] [address] [place] [phone] Loyda Lennon M.D. [address] [place] [address] 01/24/2024 8:00 AM CDT Lab Department of Laboratory Medicine and Pathology, [facility] in [place], [place] [address] [place] [phone] Loyda Lennon M.D. [address] [place] [phone] 01/24/2024 8:15 AM CDT Lab Department of Oncology in [place], [place] [address] [place] [phone] Loyda Lennon M.D. [address] [place] [phone] 01/24/2024 9:15 AM CDT Infusion Department of Oncology in [place], [place] [address] [place] [phone] Loyda Lennon M.D. 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 documented in this encounter Results * (ABNORMAL) CBC with Differential, Blood (09/17/2023 7:42 AM CDT) [facility] Hemoglobin 9.3(L) 13.2 - 16.6 g/dL 09/17/2023 8:34 AM CDT DTL Hematocrit 29.3(L) 38.3 - 48.6 % 09/17/2023 8:34 AM CDT DTL Erythrocytes 2.92(L) 4.35 - 5.65 x10(12)/L 09/17/2023 8:34 AM CDT DTL MCV 100.3(H) 78.2 - 97.9 fL 09/17/2023 8:34 AM CDT DTL RBC Distrib Width 16.3(H) 11.8 - 14.5 % 09/17/2023 8:34 AM CDT DTL Platelet Count 168 135 - 317 x10(9)/L 09/17/2023 8:34 AM CDT DTL Leukocytes 4.7 3.4 - 9.6 x10(9)/L 09/17/2023 8:34 AM CDT DTL Neutrophils 3.53 1.56 - 6.45 x10(9)/L 09/17/2023 8:34 AM CDT DH[facility] Lymphocytes 0.69(L) 0.95 - 3.07 x10(9)/L 09/17/2023 8:34 AM CDT DTL Monocytes 0.35 0.26 - 0.81 x10(9)/L 09/17/2023 8:34 AM CDT DTL Eosinophils 0.08 0.03 - 0.48 x10(9)/L 09/17/2023 8:34 AM CDT DTL Basophils 0.04 0.01 - 0.08 x10(9)/L 09/17/2023 8:34 AM CDT DTL Blood (Blood, Venous) 09/17/2023 7:42 AM CDT 09/17/2023 7:59 AM CDT Na Hernandez M.D., Ph.D. LAB BLOOD A [facility] 200 [place] [address], [place] DTL [facility] [address] [place] [address] 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 5 mL (500 units) of Heparin 100 units/mL to each port/lumen. When IVAD not accessed or infusing: When no infusion to maintain patency flush every 28 days following NaCL flush. 5 mL (500 units) of Heparin 100 units/mL to each port/lumen. Given 09/17/2023 7:40 AM CDT 500 Units sodium chloride 0.9 % injection 10-20 mL 10-20 mL, intra-catheter, As needed, line care, Starting on Sat09/17/23 at 0730, When IVAD accessed and infusing: Flush prior to and following infusion, between multiple consecutive infusions. 10 mL to each port/lumen. Given 09/17/2023 7:20 AM CDT 10 mL sodium chloride 0.9 % injection 20-40 mL 20-40 mL, intra-catheter, As needed, line care, Starting on Sat09/17/23 at 0730, When IVAD accessed and infusing: Flush prior to blood sampling, post blood transfusion or post blood sampling. 20 mL to each port/lumen. Given 09/17/2023 7:39 AM CDT 20 mL documented in this encounter Additional Health Concerns Infection Onset Date Last Indicated Resolved Time Protective Environment 11/07/2022 11/07/2022 documented as of this encounter Care Teams Case Making Machine Operator Relationship Specialty Start Date End Date Mark Colorado M.D. [address] [place] [address] PCP - General Family Medicine 11/09/22 documented as of this encounter
--- OUTSIDE RECORDS SUMMARY | 2023-11-05 22:09 | XMS_ITS | Encounter Summary ---
Author Organization [facility] Address [address] [place] [address] Care Team Providers Care Investigations Consultant Name Role Phone Mark Colorado M.D. 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 I have a [facility] place to live 10/10/2023 Sex and Gender Information Value Date Recorded Sex Assigned at Male 09/10/2022 12:02 PM CDT Gender Identity Male 09/10/2022 12:02 PM CDT Sexual Orientation Straight 09/10/2022 12 :02 PM CDT documented as of this encounter Plan of Treatment Upcoming Encounters Date Type Department Care Team (Latest Contact Info) Description 11/07/2023 3:15 PM CDT Clinical Communication Virtual Review in [address] [address] 11/15/2023 6:40 AM CDT Lab Department of Laboratory Medicine and Pathology, [facility], in [address] [address] Loyda Lennon M.D. [address] [place] [phone] 11/15/2023 8:20 AM CDT Office Visit Department of Oncology in [address] [address] Manjit Velasquez APRN, C.N.P., D.N.P. [address] [place] [phone] 11/15/2023 9:30 AM CDT Comprehensive Visit Department of Palliative Care in [address] [address] Patty Gomez APRN, C.N.P., M.S.N. [address] [place] [phone] 11/15/2023 2:15 PM CDT Infusion Department of Oncology in [address] [place] [address] Loyda Lennon M.D. [address] [place] [phone] 11/22/2023 7:30 AM CDT Lab Department of Oncology in [place], [place] [address] [place] [phone] Loyda Lennon M.D. [address] [place] [phone] 11/22/2023 8:45 AM CDT Infusion Department of Oncology in [place], [place] [address] [place] [phone] Loyda Lennon M.D. [address] [place] [phone] 11/28/2023 3:30 PM CDT Clinical Communication Virtual Review in [place], [place] [address] [place] [address] 11/29/2023 9:00 AM CDT Procedure visit Department of Urology in [place], [place] [address] [place] [phone] Mark Colorado M.D. [address] [place] [address] 11/29/2023 11:20 AM CDT Lab Department of Laboratory Medicine and Pathology, [facility], in [place], [place] [address] [place] [phone] Loyda Lennon M.D. [address] [place] [phone] 11/29/2023 11:30 AM CDT Lab Department of Oncology in [place], [place] [address] [place] [phone] Loyda Lennon M.D. [address] [place] [address] 11/29/2023 1:00 PM CDT Infusion Department of Oncology in [place], [place] [address] [place] [phone] Loyda Lennon M.D. [address] [place] [phone] 12/03/2023 1:45 PM CDT Comprehensive Visit Department of Urology in [place], [place] [address] [place] [phone] Mona Egan P.A.-C. [address] [place] [address] 12/05/2023 1:20 PM CDT Comprehensive Visit Department of Oncology in [place], [place] [address] [place] [phone] Letty Kate M.D. [address] [place] [address] 12/10/2023 3:00 PM CDT Clinical Communication Virtual Review in [place], [place] [address] [place] [address] 12/10/2023 3:30 PM CDT Procedure visit Department of Urology in [place], [place] [address] [place] [phone] Mark Colorado M.D. [address] [place] [address] 12/12/2023 3:45 PM CDT Appointment Department of Radiology, [facility], in [address] [address] Na Hernandez M.D., Ph.D. [address] [place] [address] 12/13/2023 6:00 AM CDT Lab Department of Laboratory Medicine and Pathology, [facility], in [place], [place] [address] [place] [address] Loyda Lennon M.D. [address] [place] [address] 12/13/2023 6:20 AM CDT Lab Department of Infusion Therapy in [place], [place] [address] [place] [phone] Loyda Lennon M.D. [address] [place] [address] 12/13/2023 11:10 AM CDT Office Visit Department of Oncology in [place], [place] [address] [place] [address] Na Hernandez M.D., Ph.D. [address] [place] [address] 12/13/2023 1:00 PM CDT Infusion Department of Oncology in [place], [place] [address] [place] [phone] Loyda Lennon M.D. [address] [place] [address] 12/20/2023 9:20 AM CDT Lab Department of Infusion Therapy in [place], [place] [address] [place] [phone] Loyda Lennon M.D. [address] [place] [address] 12/20/2023 10:30 AM CDT Infusion Department of Oncology in [place], [place] [address] [place] [phone] Loyda Lennon M.D. [address] [place] [address] 12/25/2023 10:30 AM CDT Appointment Division of Gastroenterology in [place], [place] [address] [place] [phone] Na Hernandez M.D., Ph.D. [address] [place] [phone] 12/27/2023 10:15 AM CDT Lab Department of Oncology in [place], [place] [address] [place] [phone] Loyda Lennon M.D. [address] [place] [address] 12/27/2023 10:30 AM CDT Lab Department of Laboratory Medicine and Pathology, [facility] in [place], [place] [address] [place] [phone] Loyda Lennon M.D. [address] [place] [address] 12/27/2023 11:45 AM CDT Infusion Department of Oncology in [place], [place] [address] [place] [phone] Loyda Lennon M.D. [address] [place] [address] 01/03/2024 1:00 PM CDT Clinical Communication Virtual Review in [place], [place] [address] [place] [address] 01/10/2024 8:00 AM CDT Lab Department of Infusion Therapy in [address] [address] Loyda Lennon M.D. [address] [place] [address] 01/10/2024 8:20 AM CDT Lab Department of Laboratory Medicine and Pathology, [facility] in [place], [place] [address] [place] [phone] Loyda Lennon M.D. [address] [place] [address] 01/10/2024 10:30 AM CDT Office Visit Department of Oncology in [place], [place] [address] [place] [phone] Na Hernandez M.D., Ph.D. [address] [place] [phone] 01/10/2024 11:45 AM CDT Infusion Department of Oncology in [place], [place] [address] [place] [phone] Loyda Lennon M.D. [address] [place] [address] 01/17/2024 8:45 AM CDT Lab Department of Oncology in [place], [place] [address] [place] [phone] Loyda Lennon M.D. [address] [place] [address] 01/17/2024 10:00 AM CDT Infusion Department of Oncology in [place], [place] [address] [place] [phone] Loyda Lennon M.D. [address] [place] [address] 01/24/2024 8:00 AM CDT Lab Department of Laboratory Medicine and Pathology, [facility], in [place], [place] [address] [place] [address] Loyda Lennon M.D. [address] [place] [address] 01/24/2024 8:15 AM CDT Lab Department of Oncology in [place], [place] [address] [place] [address] Loyda Lennon M.D. [address] [place] [phone] 01/24/2024 9:15 AM CDT Infusion Department of Oncology in [place], [place] [address] [place] [address] Loyda Lennon M.D. [address] [place] [phone] Scheduled Procedures Name Priority Associated Diagnoses Date/Ti me HEPATECTOMY RESECTION LIVER Cholangiocarcinoma (HCC) ULTRASOUND LIVER Cholangiocarcinoma (HCC) RECONSTRUCTION PORTAL VEIN Cholangiocarcinoma (HCC) documented as of this encounter Visit Diagnoses Diagnosis Cholangiocarcinoma (HCC)- Primary Intermediate Current Drug Therapy, Chemotherapy Peritoneal Carcinomatosis (HCC) Neutropenia Chemotherapy Induced (HCC) documented in this encounter Additional Health Concerns Infection Onset Date Last Indicated Resolved Time Protective Environment 11/07/2022 11/07/2022 documented as of this encounter Care Teams Investigations Consultant Relationship Specialty Start Date End Date Mark Colorado M.D. [address] [place] [address] PCP - General Family Medicine 11/09/22 documented as of this encounter
--- OUTSIDE RECORDS SUMMARY | 2023-11-05 22:09 | XMS_ITS | Encounter Summary ---
Author Organization [facility] Address [address] [place] [address] Care Team Providers Care Cleat Feeder Name Role Phone Mark Colorado M.D. Primary Care Provider [phone] Encounter Details Date Type Department Care Team (Late st Contact Info) Description 09/24/2023 Orders Only Department of Oncology in [place], [place] [address] [place] [phone] Na Hernandez M.D., Ph.D. [address] [place] [phone] Social History Tobacco Use Types Packs/Day Years Used Date Smoking Tobacco: Never Passive Smoke Exposure: Never Smokeless Tobacco: Never Alcohol Use Standard Drinks/Week Comments Not Currently 0 (1 standard drink = 0.6 oz pur e alcohol) [facility] Utilities Answer Date Recorded In the [...] PM CDT Clinical Communication Virtual Review in [place], [place] [address] [place] [address] 11/15/2023 6:40 AM CDT Lab Department of Laboratory Medicine and Pathology, [facility] in [place], [place] [address] [place] [phone] Loyda Lennon M.D. [address] [place] [address] 11/15/2023 8:20 AM CDT Office Visit Department of Oncology in [address] [address] Manjit Velasquez, KAYLEE, C.N.P., D.N.P. [address] [place] [address] 11/15/2023 9:30 AM CDT Comprehensive Visit Department of Palliative Care in [place], [place] [address] [place] [phone] Patty Gomez APRN, C.N.P., M.S.N. [address] [place] [phone] 11/15/2023 2:15 PM CDT Infusion Department of Oncology in [place], [place] [address] [place] [address] Loyda Lennon M.D. [address] [place] [address] 11/22/2023 7:30 AM CDT Lab Department of Oncology in [place], [place] [address] [place] [address] Loyda Lennon M.D. [address] [place] [address] 11/22/2023 8:45 AM CDT Infusion Department of Oncology in [place], [place] [address] [place] [address] Loyda Lennon M.D. [address] [place] [address] 11/28/2023 3:30 PM CDT Clinical Communication Virtual Review in [place], [place] [address] [place] [address] 11/29/2023 9:00 AM CDT Procedure visit Department of Urology in [place], [place] [address] [place] [phone] Mark Colorado M.D. [facility] [place] [address] 11/29/2023 11:20 AM CDT Lab Department of Laboratory Medicine and Pathology, [facility], in [place], [place] [address] [place] [address] Loyda Lennon M.D. [address] [place] [address] 11/29/2023 11:30 AM CDT Lab Department of Oncology in [place], [place] [address] [place] [phone] Loyda Lennon M.D. [address] [place] [address] 11/29/2023 1:00 PM CDT Infusion Department of Oncology in [place], [place] [address] [place] [address] Loyda Lennon M.D. [address] [place] [address] 12/03/2023 1:45 PM CDT Comprehensive Visit Department of Urology in [place], [place] [address] [place] [phone] Mona Egan P.A.-C. [address] [place] [address] 12/05/2023 1:20 PM CDT Comprehensive Visit Department of Oncology in [place], [place] [address] [place] [address] Letty Kate M.D. [address] [place] [address] 12/10/2023 3:00 PM CDT Clinical Communication Virtual Review in [place], [place] [address] [place] [address] 12/10/2023 3:30 PM CDT Procedure visit Department of Urology in [place], [place] [address] [place] [phone] Mark Colorado M.D. [address] [place] [address] 12/12/2023 3:45 PM CDT Appointment Department of Radiology, [facility], in [place], [place] [address] [place] [address] Na Hernandez M.D., Ph.D. [address] [place] [phone] 12/13/2023 6:00 AM CDT Lab Department of Laboratory Medicine and Pathology, [facility], in [place], [place] [address] [place] [phone] Loyda Lennon M.D. [address] [place] [address] 12/13/2023 6:20 AM CDT Lab Department of Infusion Therapy in [place], [place] [address] [place] [address] Loyda Lennon M.D. [address] [place] [address] 12/13/2023 11:10 AM CDT Office Visit Department of Oncology in [place], [place] [address] [place] [address] Na Hernandez M.D., Ph.D. [address] [place] [address] 12/13/2023 1:00 PM CDT Infusion Department of Oncology in [address] [address] Loyda Lennon M.D. [address] [place] [address] 12/20/2023 9:20 AM CDT Lab Department of Infusion Therapy in [place], [place] [address] [place] [address] Loyda Lennon M.D. [address] [place] [address] 12/20/2023 10:30 AM CDT Infusion Department of Oncology in [place], [place] [address] [place] [address] Loyda Lennon M.D. [address] [place] [address] 12/25/2023 10:30 AM CDT Appointment Division of Gastroenterology in [address] [address] Na Hernandez M.D., Ph.D. [address] [place] [address] 12/27/2023 10:15 AM CDT Lab Department of Oncology in [place], [place] [address] [place] [address] Loyda Lennon M.D. [address] [place] [address] 12/27/2023 10:30 AM CDT Lab Department of Laboratory Medicine and Pathology, [facility] in [address] [address] Loyda Lennon M.D. [address] [place] [phone] 12/27/2023 11:45 AM CDT Infusion Department of Oncology in [address] [address] Loyda Lennon M.D. [address] [place] [address] 01/03/2024 1:00 PM CDT Clinical Communication Virtual Review in [address] [address] 01/10/2024 8:00 AM CDT Lab Department of Infusion Therapy in [address] [address] Loyda Lennon M.D. [address] [place] [address] 01/10/2024 8:20 AM CDT Lab Department of Laboratory Medicine and Pathology, [facility] in [place], [place] [address] [place] [address] Loyda Lennon M.D. [address] [place] [address] 01/10/2024 10:30 AM CDT Office Visit Department of Oncology in [place], [place] [address] [place] [phone] Na Hernandez M.D., Ph.D. [address] [place] [phone] 01/10/2024 11:45 AM CDT Infusion Department of Oncology in [place], [place] [address] [place] [address] Loyda Lennon M.D. [address] [place] [address] 01/17/2024 8:45 AM CDT Lab Department of Oncology in [address] [address] Loyda Lennon M.D. [address] [place] [address] 01/17/2024 10:00 AM CDT Infusion Department of Oncology in [address] [address] Loyda Lennon M.D. [address] [place] [address] 01/24/2024 8:00 AM CDT Lab Department of Laboratory Medicine and Pathology, [facility], in [place], [place] [address] [place] [address] Loyda Lennon M.D. [address] [place] [address] 01/24/2024 8:15 AM CDT Lab Department of Oncology in [place], [place] [address] [place] [address] Loyda Lennon M.D. [address] [place] [address] 01/24/2024 9:15 AM CDT Infusion Department of Oncology in [place], [place] [address] [place] [address] Loyda Lennon M.D. [address] [place] [phone] Scheduled Procedures Name Priority Associated Diagnoses Date/Ti me HEPATECTOMY RESECTION LIVER Cholangiocarcinoma (HCC) ULTRASOUND LIVER Cholangiocarcinoma (HCC) RECONSTRUCTION PORTAL VEIN Cholangiocarcinoma (HCC) documented as of this encounter Visit Diagnoses Not on filedocumented in this encounter Additional Health Concerns Infection Onset Date Last Indicated Resolved Time Protective Environment 11/07/2022 11/07/2022 documented as of this encounter Care Teams Cleat Feeder Relationship Specialty Start Date End Date Mark Colorado M.D. [address] [place] [address] PCP - General Family Medicine 11/09/22 documented as of this encounter
--- OUTSIDE RECORDS SUMMARY | 2023-11-05 22:10 | XMS_ITS | Encounter Summary ---
Author Organization [facility] Address [address] [place] [address] Care Team Providers Care Routing Clerk Name Role Phone Mark Colorado M.D. Primary Care Provider [phone] Reason for Referral * Outpatient (Routine) - Authorized Specialty Diagnoses / Procedures Referred By Contac t Referred To Contact Medical Oncology / Oncology Diagnoses Cholangiocarcinoma (HCC) Peritoneal Carcinomatosis (HCC) Na Hernandez M.D., Ph.D. [address] [place] [address] [facility] Referral ID Status Reason Start Date Expiration Date V isits Requested Visits Authorized [id number] Authorized 09/10/2023 03/11/2025 1 1 Reason for Visit * Episode Based Medications (Routine) - Authorized Specialty Diagnoses / Procedures Referred By Chloe hinkle Referred To Contact Diagnoses Cholangiocarcinoma (HCC) Longterm Current Drug Therapy, Chemotherapy Peritoneal Carcinomatosis (HCC) Neutropenia Chemotherapy Induced (HCC) Procedures IA ONDANSETRON HCL INJECTION IA PACLITAXEL INJECTION IA INJECTION, FULPHILA ONC Yuko Penning[facility] [address] [place] [phone] Rst Onc Rogo [address] [place] [phone] Referral ID Status Reason Start Date Expiration Date V isits Requested Visits Authorized [id number] Authorized 03/11/2023 03/31/2024 31 99 Encounter Details Date Type Department Care Team (Latest Contact Info) Description 09/10/2023 1:20 PM CDT Office Visit Department of Oncology in [place], [place] [address] [place] [address] [phone] Na Hernandez M.D., Ph.D. [address] [place] [phone] Cholangiocarcinoma (HCC); Peritoneal Carcinomatosis (HCC); Neutropenia Chemotherapy Induced (HCC); Longterm Current Drug Therapy, Chemotherapy Social History Tobacco [...] your living situation today? I have a [facility] place to live 09/10/2022 Sex and Gender Information Value Date Recorded Sex Assigned at Male 09/10/2022 12:02 PM CDT Gender Identity Male 09/10/2022 12:02 PM CDT Sexual Orientation Straight 09/10/2022 12 :02 PM CDT documented as of this encounter Last Filed Vital Signs Vital Sign Reading Time Taken Comments Blood Pressure 148/68 09/10/2023 1:12 PM CDT Pulse 60 09/10/2023 1:12 PM CDT Temperature 36.7 ??C (98.1 ??F) 09/10/2023 1:12 PM CD T Respiratory Rate - - Oxygen Saturation 98% 09/10/2023 1:12 PM CDT Inhaled Oxygen Concentration - - Weight 90.3 kg (199 lb 1.2 oz) 09/10/2023 1:12 P M CDT Height 182.6 cm (5' 11.89) 09/10/2023 1:12 PM C DT Body Mass Index 27.08 09/10/2023 1:12 PM CDT documented in this encounter Progress Notes * Na Hernandez M.D., Ph.D. - 09/10/2023 1:20 PM CDT SUBJECTIVE LOCAL ONCOLOGIST No care team leader/research psychologist to display PRIMARY [place] ONCOLOGIST Na Hernandez M.D., Ph.D. CHIEF COMPLAINT / REASON FOR VISIT Jorge Luis Sepulveda is a 68 y.o. male who presents for follow-up of metastatic intrahepatic cholangiocarcinoma. Cancer Staging Cholangiocarcinoma (HCC) Staging form: Intrahepatic Bile Duct, AJCC 8th Edition - Clinical stage from 10/12/2022: Stage IB (cT1b, cN0, cM0) - Pathologic stage from 01/09/2023: Stage IV (pM1) Current Therapy: [facility] CTX-009-002 ( CTX-009 / PACLitaxel ) Current [...] Genotyping POSITIVE Germline genetic testing in 2022; [employer] Cancer + RNA panel from [facility]. 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 One Variant of Uncertain Significance (VUS) identified in the BRCA1 gene, specifically c.3607C>G 06/18/2023 - Research Study Participant Research Study: A Study of CTX-009 in Combination With Paclitaxel in Adult Patients With Unresectable Advanced, Metastatic or Recurrent Biliary Tract Cancers (AUTOMOTIVE DESIGN LAYOUT DRAFTER-002) ([id number]) Treatment Protocol: [facility] CTX-009-002 ( CTX-009 / PACLitaxel ) Interval history: Last cycle he received Neulasta on day 16 for the 1st time. He felt okay for the 1st couple days after chemotherapy, and enjoyed a family gathering over the weekend. Four days after Neulasta, on the evening of 09/02/23 he developed pain at the base of his skull, spreading to his sternum and low back.He tells me this pain was ???excruciating and worse with laying flat. He was seen in the ED for these concerns on 09/03/23. Due to being on CTX-009 and recent report of a patient having a stroke on this trial, he underwent a thorough stroke and cardiovascular evaluation in the emergency department, including EKG with no acute changes, point of Care cardiac ultrasound with normal cardiac activity and function, CT head and CTA head and neck with no acute findings, CT a chest with no pulmonary embolism. He was treated with fentanyl with some improvement in the pain. He was discharged to home withoutpatient follow-up. In evaluation in clinic today he tells me that the acute pain subsided after the ED visit, and he now has only his baseline abdominal discomfort. For that he is taking Dilaudid as needed about twice daily. He has noticed increased numbness in his left leg in the last cycle. 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 This has now progressed further. He has not having any balance issues or functional limitation Otherwise his appetite is okay. He is having adequate bowel movements on a regimen of MiraLax. His energy level is stable. Medications and allergies reviewed. OBJECTIVE BP 148/68 (BP Location: Left arm, Patient Position: Sitting, Cuff Size: Large) Pulse 60 Temp 36.7 ??C (Tympanic) Ht 182.6 cm Wt 90.3 kg SpO2 98% BMI 27.08 kg/m?? PHYSICAL EXAMINATION General: Patient is well-appearing, in no acute distress. Ambulates on and off the exam table without difficulty. Skin: No rashes or lesions noted. No jaundice. Eyes: no scleral icterus. ENT: Moist oral mucosa, no mucositis or oral lesions noted. Lymph: No cervical, supraclavicular, axillary lymphadenopathy palpated. Heart: Regular rate & rhythm without murmurs, gallops or rubs. Lungs: Breathing comfortably on room air. Lungs clear to auscultation bilaterally. Abdomen: Soft, nondistended. Mildly tender to palpation across the lower abdomen. Mental Status: Answering all questions appropriately, normal affect. Neurologic: Grossly non-focal. Extremities: Warm and well perfused. No lower extremity edema. ECOG Performance Status: 1 LABORATORY DATA Lab data reviewed. RADIOLOGICAL DATA Echo Transthoracic (TTE) Result Date: 09/10/2023 Impression: Echocardiogram performed per chemotherapy protocol to assess left ventricular function.Last full echocardiogram performed 03/11/2023 (most recent TTE [...] regurgitation. Thickened mitral valve. Bileaflet mitral valve prolapse. Mild mi tral valve regurgitation (two eccentric jets). Normal tricuspid valve. Mild tricuspid valve regurgitation. OTHER ECHO FINDINGS:Normal inferior vena cava size with normal inspiratory collapse (>50%). No intracardiac mass or thrombus, but the left atrial appendage cannot be visualized adequately with transthoracic echo to exclude thrombus in this location. No pericardial effusion. For the complete report, see the Order-Level Documents. CT Chest Angiogram and Pulmonary Arteries with IV Contrast Result Date: 09/03/2023 Impression: 1. Negative for acute pulmonary embolism. 2. Small (sub-6 mm ) subsolid pulmonary nodules within the lungs bilaterally and mild right hilar lymphadenopathy, nonspecific and not significantly changed. 3. Unchanged hypodense lesion within the hepatic hilum measuring 3.6 x 1.8 cm and compatible with history of perihilar cholangiocarcinoma. 4. Mildly increased splenomegaly measuring 14.3 cm AP (previously 13.[address] Head Neck Angiogram with IV Contrast Result Date: 09/03/2023 Impression: 1. No acute intracranial abnormalities. 2. No intracranial large vessel occlusion or saccular aneurysm. 3. No hemodynamically significant stenosis within the neck. ASSESSMENT / PLAN #1 Metastatic intrahepatic cholangiocarcinoma [...] the experimental arm in May 2022. He returns to clinic for pretreatment evaluation for cycle 4, day 1. We discussed the episode of headache, chest and back pain that led to ED evaluation on 09/03/23. No definite cause was identified on evaluation (details per HPI). It could be that this pain episode wasrelated to Neulasta, as he received it for the 1st time on 08/29/23. The timing would be a little atypical, starting 4 days after Neulasta, but it is possible in the absence of other clear inciting events. We discussed the options for this cycle including (1) retry Neulasta (with prophylactic Claritin) or (2) dose reduction of paclitaxel and omission of Neulasta. Given that he also has worsening of his neuropathy, we decided to further dose reduce paclitaxel and omit Neulasta this cycle. -- proceed with cycle 4, day 1 with dose reduction of paclitaxel and omission of Neulasta. Regarding his hypertension, blood pressure is 148/68 in clinic. Systolic blood pressures have fluctuated in the 150s. He is taking amlodipine 10 mg daily and lisinopril 5 mg daily. I recommended increasing lisinopril to 10 mg daily, and monitoring his blood pressure at home. We will monitor electrolytes with pre- chemotherapy labs. --He is interested in integrative medicine options for his neuropathy. He has been doing massage with some benefit. Integrative medicine consult placed. --Repeat ERCP with stent exchange is due in early October. (previously ordered). --return to clinic per the trial protocol. Intent to Change Therapy: Yes-dose delay or modification but without change in regimen ADMINISTRATIVE BILLING I spent 40 minutes face to face and non-face to face caring for the patient today. documented in this encounter Plan of Treatment Upcoming Encounters Date Type Department Care Team (Latest Contact Info) Description 11/07/2023 3:15 PM CDT Clinical Communication Virtual Review in [address] [phone] 11/15/2023 6:40 AM CDT Lab Department of Laboratory Medicine and Pathology, [facility], in [address] [phone] Loyda Lennon M.D. [address] [place] [phone] 11/15/2023 8:20 AM CDT Office Visit Department of Oncology in [address] [phone] Manjit Velasquez APRN, C.N.P., D.N.P. [address] [place] [phone] 11/15/2023 9:30 AM CDT Comprehensive Visit Department of Palliative Care in [address] [phone] Patty Gomez APRN, C.N.P., M.S.N. [address] [place] [phone] 11/15/2023 2:15 PM CDT Infusion Department of Oncology in [place], [place] [address] [place] [phone] Loyda Lennon M.D. [address] [place] [phone] 11/22/2023 7:30 AM CDT Lab Department of Oncology in [place], [place] [address] [place] [phone] Loyda Lennon M.D. [address] [place] [phone] 11/22/2023 8:45 AM CDT Infusion Department of Oncology in [address] [phone] Loyda Lennon M.D. [address] [place] [phone] 11/28/2023 3:30 PM CDT Clinical Communication Virtual Review in [place], [place] [address] [place] [phone] 11/29/2023 9:00 AM CDT Procedure visit Department of Urology in [address] [phone] Mark Colorado M.D. [address] [place] [phone] 11/29/2023 11:20 AM CDT Lab Department of Laboratory Medicine and Pathology, [facility], in [place], [place] [address] [place] [phone] Loyda Lennon M.D. [address] [place] [phone] 11/29/2023 11:30 AM CDT Lab Department of Oncology in [place], [place] [address] [place] [phone] Loyda Lennon M.D. [address] [place] [phone] 11/29/2023 1:00 PM CDT Infusion Department of Oncology in [place], [place] [address] [place] [phone] Loyda Lennon M.D. [address] [place] [phone] 12/03/2023 1:45 PM CDT Comprehensive Visit Department of Urology in [place], [place] [address] [place] [phone] Mona Egan P.A.-C. [address] [place] [phone] 12/05/2023 1:20 PM CDT Comprehensive Visit Department of Oncology in [place], [place] [address] [place] [phone] Letty Kate M.D. [address] [place] [phone] 12/10/2023 3:00 PM CDT Clinical Communication Virtual Review in [place], [place] [address] [place] [address] 12/10/2023 3:30 PM CDT Procedure visit Department of Urology in [place], [place] [address] [place] [phone] Mark Colorado M.D. [facility] [place] [phone] 12/12/2023 3:45 PM CDT Appointment Department of Radiology, [facility], in [place], [place] [address] [place] [phone] Na Hernandez M.D., Ph.D. [address] [place] [phone] 12/13/2023 6:00 AM CDT Lab Department of Laboratory Medicine and Pathology, [facility], in [place], [place] [address] [place] [phone] Loyda Lennon M.D. [address] [place] [phone] 12/13/2023 6:20 AM CDT Lab Department of Infusion Therapy in [place], [place] [address] [place] [phone] Loyda Lennon M.D. [address] [place] [phone] 12/13/2023 11:10 AM CDT Office Visit Department of Oncology in [place], [place] [address] [place] [phone] Na Hernandez M.D., Ph.D. [address] [place] [phone] 12/13/2023 1:00 PM CDT Infusion Department of Oncology in [address] [phone] Loyda Lennon M.D. [address] [place] [phone] 12/20/2023 9:20 AM CDT Lab Department of Infusion Therapy in [place], [place] [address] [place] [phone] Loyda Lennon M.D. [address] [place] [phone] 12/20/2023 10:30 AM CDT Infusion Department of Oncology in [place], [place] [address] [place] [phone] Loyda Lennon M.D. [address] [place] [phone] 12/25/2023 10:30 AM CDT Appointment Division of Gastroenterology in [place], [place] [address] [place] [phone] Na Hernandez M.D., Ph.D. [address] [place] [phone] 12/27/2023 10:15 AM CDT Lab Department of Oncology in [place], [place] [address] [place] [phone] Loyda Lennon M.D. [address] [place] [phone] 12/27/2023 10:30 AM CDT Lab Department of Laboratory Medicine and Pathology, [facility] in [place], [place] [address] [place] [phone] Loyda Lennon M.D. [address] [place] [phone] 12/27/2023 11:45 AM CDT Infusion Department of Oncology in [address] [phone] Loyda Lennon M.D. [address] [place] [phone] 01/03/2024 1:00 PM CDT Clinical Communication Virtual Review in [address] [phone] 01/10/2024 8:00 AM CDT Lab Department of Infusion Therapy in [address] [phone] Loyda Lennon M.D. [address] [place] [phone] 01/10/2024 8:20 AM CDT Lab Department of Laboratory Medicine and Pathology, [facility] in [place], [place] [address] [place] [phone] Loyda Lennon M.D. [address] [place] [phone] 01/10/2024 10:30 AM CDT Office Visit Department of Oncology in [place], [place] [address] [place] [phone] Na Hernandez M.D., Ph.D. [address] [place] [phone] 01/10/2024 11:45 AM CDT Infusion Department of Oncology in [place], [place] [address] [place] [phone] Loyda Lennon M.D. [address] [place] [phone] 01/17/2024 8:45 AM CDT Lab Department of Oncology in [address] [phone] Loyda Lennon M.D. [address] [place] [phone] 01/17/2024 10:00 AM CDT Infusion Department of Oncology in [place], [place] [address] [place] [phone] Loyda Lennon M.D. [address] [place] [phone] 01/24/2024 8:00 AM CDT Lab Department of Laboratory Medicine and Pathology, [facility], in [place], [place] [address] [place] [phone] Loyda Lennon M.D. [address] [place] [address] 01/24/2024 8:15 AM CDT Lab Department of Oncology in [place], [place] [address] [place] [address] Loyda Lennon M.D. [address] [place] [phone] 01/24/2024 9:15 AM CDT Infusion Department of Oncology in [place], [place] [address] [place] [address] Loyda Lennon M.D. [address] [place] [phone] Scheduled Procedures Name Priority Associated Diagnoses Date/Ti me HEPATECTOMY RESECTION LIVER Cholangiocarcinoma (HCC) ULTRASOUND LIVER Cholangiocarcinoma (HCC) RECONSTRUCTION PORTAL VEIN Cholangiocarcinoma (HCC) Scheduled Referrals Name Type Priority Associated Diagnoses Orde r Schedule Oncology - Integrative Medicine consult (clinic) Outpatient Referral Routine Cholangiocarcinoma (HCC) Peritoneal Carcinomatosis (HCC) Expected: 09/10/2023, Expires: 12/10/2024 documented as of this encounter Visit Diagnoses Diagnosis Cholangiocarcinoma (HCC) Peritoneal Carcinomatosis (HCC) Neutropenia Chemotherapy Induced (HCC) Undergraduate Internship Current Drug Therapy, Chemotherapy documented in this encounter Additional Health Concerns Infection Onset Date Last Indicated Resolved Time Protective Environment 11/07/2022 11/07/2022 documented as of this encounter Care Teams Routing Clerk Relationship Specialty Start Date End Date Mark Colorado M.D. [address] [place] [phone] PCP - General Family Medicine 11/09/22 documented as of this encounter
--- OUTSIDE RECORDS SUMMARY | 2023-11-05 22:10 | XMS_ITS | Encounter Summary ---
Author Organization [facility] Address [address] [place] [address] Care Team Providers Care Speech Communication Professor Name Role Phone Mark Colorado M.D. Primary Care Provider [phone] Encounter Details Date Type Department Care Team (Late st Contact Info) Description 09/05/2023 Orders Only Department of Oncology in [place], [place] [address] [place] [address] Karen Burger Social History Tobacco Use Types Packs/Day Years [...] your living situation today? I have a [facility] place to live 09/10/2022 Sex and Gender Information Value Date Recorded Sex Assigned at Male 09/10/2022 12:02 PM CDT Gender Identity Male 09/10/2022 12:02 PM CDT Sexual Orientation Straight 09/10/2022 12 :02 PM CDT documented as of this encounter Plan of Treatment Upcoming Encounters Date Type Department Care Team (Latest Contact Info) Description 11/07/2023 3:15 PM CDT Clinical Communication Virtual Review in [place], [place] [address] [place] [address] 11/15/2023 6:40 AM CDT Lab Department of Laboratory Medicine and Pathology, [facility] in [address] [address] Loyda Lennon M.D. [address] [place] [phone] 11/15/2023 8:20 AM CDT Office Visit Department of Oncology in [address] [address] Manjit Velasquez APRN, C.N.P., D.N.P. [address] [place] [phone] 11/15/2023 9:30 AM CDT Comprehensive Visit Department of Palliative Care in [address] [address] Patty Gomez APRN, C.N.P., M.S.N. [address] [place] [phone] 11/15/2023 2:15 PM CDT Infusion Department of Oncology in [address] [address] Loyda Lennon M.D. [address] [place] [phone] 11/22/2023 7:30 AM CDT Lab Department of Oncology in [place], [place] [address] [place] [phone] Loyda Lennon M.D. [address] [place] [phone] 11/22/2023 8:45 AM CDT Infusion Department of Oncology in [place], [place] [address] [place] [phone] Loyda Lennon M.D. [address] [place] [phone] 11/28/2023 3:30 PM CDT Clinical Communication Virtual Review in [place], [place] [address] [place] [address] 11/29/2023 9:00 AM CDT Procedure visit Department of Urology in [place], [place] [address] [place] [phone] Mark Colorado M.D. [address] [place] [address] 11/29/2023 11:20 AM CDT Lab Department of Laboratory Medicine and Pathology, [facility], in [address] [phone] Loyda Lennon M.D. [address] [place] [phone] 11/29/2023 11:30 AM CDT Lab Department of Oncology in [place], [place] [address] [place] [phone] Loyda Lennon M.D. [address] [place] [phone] 11/29/2023 1:00 PM CDT Infusion Department of Oncology in [place], [place] [address] [place] [phone] Loyda Lennon M.D. [address] [place] [phone] 12/03/2023 1:45 PM CDT Comprehensive Visit Department of Urology in [place], [place] [address] [place] [phone] Mona Egan P.A.-C. [address] [place] [phone] 12/05/2023 1:20 PM CDT Comprehensive Visit Department of Oncology in [place], [place] [address] [place] [phone] Letty Kate M.D. [address] [place] [address] 12/10/2023 3:00 PM CDT Clinical Communication Virtual Review in [place], [place] [address] [place] [address] 12/10/2023 3:30 PM CDT Procedure visit Department of Urology in [place], [place] [address] [place] [phone] Mark Colorado M.D. [facility] [place] [address] 12/12/2023 3:45 PM CDT Appointment Department of Radiology, [facility], in [place], [place] [address] [place] [phone] Na Hernandez M.D., Ph.D. [address] [place] [phone] 12/13/2023 6:00 AM CDT Lab Department of Laboratory Medicine and Pathology, [facility], in [place], [place] [address] [place] [phone] Loyda Lennon M.D. [address] [place] [phone] 12/13/2023 6:20 AM CDT Lab Department of Infusion Therapy in [place], [place] [address] [place] [phone] Loyda Lennon M.D. [address] [place] [address] 12/13/2023 11:10 AM CDT Office Visit Department of Oncology in [place], [place] [address] [place] [phone] Na Hernandez M.D., Ph.D. [address] [place] [phone] 12/13/2023 1:00 PM CDT Infusion Department of Oncology in [place], [place] [address] [place] [phone] Loyda Lennon M.D. [address] [place] [phone] 12/20/2023 9:20 AM CDT Lab Department of Infusion Therapy in [address] [address] Loyda Lennon M.D. [address] [place] [phone] 12/20/2023 10:30 AM CDT Infusion Department of Oncology in [address] [address] Loyda Lennon M.D. [address] [place] [phone] 12/25/2023 10:30 AM CDT Appointment Division of Gastroenterology in [address] [address] Na Hernandez M.D., Ph.D. [address] [place] [phone] 12/27/2023 10:15 AM CDT Lab Department of Oncology in [place], [place] [address] [place] [phone] Loyda Lennon M.D. [address] [place] [phone] 12/27/2023 10:30 AM CDT Lab Department of Laboratory Medicine and Pathology, [facility] in [place], [place] [address] [place] [phone] Loyda Lennon M.D. [address] [place] [phone] 12/27/2023 11:45 AM CDT Infusion Department of Oncology in [place], [place] [address] [place] [phone] Loyda Lennon M.D. [address] [place] [phone] 01/03/2024 1:00 PM CDT Clinical Communication Virtual Review in [address] [address] 01/10/2024 8:00 AM CDT Lab Department of Infusion Therapy in [address] [address] Loyda Lennon M.D. [address] [place] [phone] 01/10/2024 8:20 AM CDT Lab Department of Laboratory Medicine and Pathology, [facility] in [place], [place] [address] [place] [phone] Loyda Lennon M.D. [address] [place] [address] 01/10/2024 10:30 AM CDT Office Visit Department of Oncology in [place], [place] [address] [place] [phone] Na Hernandez M.D., Ph.D. [address] [place] [phone] 01/10/2024 11:45 AM CDT Infusion Department of Oncology in [place], [place] [address] [place] [phone] Loyda Lennon M.D. [address] [place] [phone] 01/17/2024 8:45 AM CDT Lab Department of Oncology in [place], [place] [address] [place] [phone] Loyda Lennon M.D. [address] [place] [address] 01/17/2024 10:00 AM CDT Infusion Department of Oncology in [address] [address] Loyda Lennon M.D. [address] [place] [address] 01/24/2024 8:00 AM CDT Lab Department of Laboratory Medicine and Pathology, [facility], in [place], [place] [address] [place] [phone] Loyda Lennon M.D. [address] [place] [phone] 01/24/2024 8:15 AM CDT Lab Department of Oncology in [place], [place] [address] [place] [phone] Loyda Lennon M.D. [address] [place] [address] 01/24/2024 9:15 AM CDT Infusion Department of Oncology in [place], [place] [address] [place] [address] Loyda Lennon M.D. [address] [place] [address] Scheduled Procedures Name Priority Associated Diagnoses Date/Ti me HEPATECTOMY RESECTION LIVER Cholangiocarcinoma (HCC) ULTRASOUND LIVER Cholangiocarcinoma (HCC) RECONSTRUCTION PORTAL VEIN Cholangiocarcinoma (HCC) documented as of this encounter Visit Diagnoses Not on filedocumented in this encounter Additional Health Concerns Infection Onset Date Last Indicated Resolved Time Protective Environment 11/07/2022 11/07/2022 documented as of this encounter Care Teams Speech Communication Professor Relationship Specialty Start Date End Date Mark Colorado M.D. [address] [place] [address] PCP - General Family Medicine 11/09/22 documented as of this encounter
--- OUTSIDE RECORDS SUMMARY | 2023-11-05 22:10 | XMS_ITS | Encounter Summary ---
Author Organization [facility] Address [address] [place] [address] Care Team Providers Care Volleyball Assembler Name Role Phone Mark Colorado M.D. Primary Care Provider [phone] Reason for Visit * Episode Based Medications (Routine) - Authorized Specialty Diagnoses / Procedures Referred By Contac t Referred To Contact Diagnoses Cholangiocarcinoma (HCC) Senior Living Current Drug Therapy, Chemotherapy Peritoneal Carcinomatosis (HCC) Neutropenia Chemotherapy Induced (HCC) Procedures NJ ONDANSETRON HCL INJECTION [place] PACLITAXEL INJECTION NJ INJECTION, DARINEL ONC Yuko Pennington MPAS, P.A.-C. [address] [place] [address] Rst Onc [place] [address] [place] [address] Referral ID Status Reason Start Date Expiration Date V isits Requested Visits Authorized [id number] Authorized 03/11/2023 03/31/2024 31 99 Encounter Details Date Type Department Care Team (Latest Contact Info) Description 09/10/2023 2:15 PM CDT Infusion Department of Oncology in [place], [place] [address] [place] [address] Na Hernandez M.D., Ph.D. [address] [place] [phone] Car Ferrier Current Drug Therapy, Chemotherapy (Primary Dx); Cholangiocarcinoma [...] your living situation today? [facility] have a [facility] place to live 09/10/2022 Sex and Gender Information Value Date Recorded Sex Assigned at Male 09/10/2022 12:02 PM CDT Gender Identity Male 09/10/2022 12:02 PM CDT Sexual Orientation Straight 09/10/2022 12 :02 PM CDT documented as of this encounter Plan of Treatment Upcoming Encounters Date Type Department Care Team (Latest Contact Info) Description 11/07/2023 3:15 PM CDT Clinical Communication Virtual Review in [place], [place] [address] [place] [address] 11/15/2023 6:40 AM CDT Lab Department of Laboratory Medicine and Pathology, [facility], in [place], [place] [address] [place] [phone] Loyda Lennon M.D. [address] [place] [phone] 11/15/2023 8:20 AM CDT Office Visit Department of Oncology in [place], [place] [address] [place] [phone] Manjit Velasquez APRN, C.N.P., D.N.P. [address] [place] [phone] 11/15/2023 9:30 AM CDT Comprehensive Visit Department of Palliative Care in [place], [place] [address] [place] [phone] Patty Gomez APRN, C.N.P., M.S.N. [address] [place] [phone] 11/15/2023 2:15 PM CDT Infusion Department of Oncology in [address] [address] Loyda Lennon M.D. [address] [place] [phone] 11/22/2023 7:30 AM CDT Lab Department of Oncology in [address] [address] Loyda Lennon M.D. [address] [place] [phone] 11/22/2023 8:45 AM CDT Infusion Department of Oncology in [address] [address] Loyda Lennon M.D. [address] [place] [phone] 11/28/2023 3:30 PM CDT Clinical Communication Virtual Review in [place], [place] [address] [place] [address] 11/29/2023 9:00 AM CDT Procedure visit Department of Urology in [place], [place] [address] [place] [phone] Mark Colorado M.D. [facility] [place] [address] 11/29/2023 11:20 AM CDT Lab Department of Laboratory Medicine and Pathology, [facility], in [place], [place] [address] [place] [phone] Loyda Lennon M.D. [address] [place] [phone] 11/29/2023 11:30 AM CDT Lab Department of Oncology in [place], [place] [address] [place] [phone] Loyda Lennon M.D. [address] [place] [phone] 11/29/2023 1:00 PM CDT Infusion Department of Oncology in [place], [place] [address] [place] [phone] Loyda Lennon M.D. [address] [place] [phone] 12/03/2023 1:45 PM CDT Comprehensive Visit Department of Urology in [address] [address] Mona Egan, PHoldenA.-CHolden [address] [place] [phone] 12/05/2023 1:20 PM CDT Comprehensive Visit Department of Oncology in [place], [place] [address] [place] [phone] Letty Kate M.D. [address] [place] [phone] 12/10/2023 3:00 PM CDT Clinical Communication Virtual Review in [place], [place] [address] [place] [address] 12/10/2023 3:30 PM CDT Procedure visit Department of Urology in [place], [place] [address] [place] [phone] Mark Colorado M.D. [address] [place] [address] 12/12/2023 3:45 PM CDT Appointment Department of Radiology, [facility], in [place], [place] [address] [place] [phone] Na Hernandez M.D., Ph.D. [address] [place] [phone] 12/13/2023 6:00 AM CDT Lab Department of Laboratory Medicine and Pathology, [facility], in [place], [place] [address] [place] [phone] Loyda Lennon M.D. [address] [place] [phone] 12/13/2023 6:20 AM CDT Lab Department of Infusion Therapy in [place], [place] [address] [place] [phone] Loyda Lennon M.D. [address] [place] [phone] 12/13/2023 11:10 AM CDT Office Visit Department of Oncology in [place], [place] [address] [place] [phone] Na Hernandez M.D., Ph.D. [address] [place] [phone] 12/13/2023 1:00 PM CDT Infusion Department of Oncology in [place], [place] [address] [place] [phone] Loyda Lennon M.D. [address] [place] [phone] 12/20/2023 9:20 AM CDT Lab Department of Infusion Therapy in [place], [place] [address] [place] [phone] Loyda Lennon M.D. [address] [place] [phone] 12/20/2023 10:30 AM CDT Infusion Department of Oncology in [place], [place] [address] [place] [phone] Loyda Lennon M.D. [address] [place] [phone] 12/25/2023 10:30 AM CDT Appointment Division of Gastroenterology in [place], [place] [address] [place] [phone] Na Hernandez M.D., Ph.D. [address] [place] [phone] 12/27/2023 10:15 AM CDT Lab Department of Oncology in [address] [address] Loyda Lennon M.D. [address] [place] [phone] 12/27/2023 10:30 AM CDT Lab Department of Laboratory Medicine and Pathology, [facility], in [place], [place] [address] [place] [phone] Loyda Lennon M.D. [address] [place] [phone] 12/27/2023 11:45 AM CDT Infusion Department of Oncology in [address] [place] [address] Loyda Lennon M.D. [address] [place] [phone] 01/03/2024 1:00 PM CDT Clinical Communication Virtual Review in [place], [place] [address] [place] [address] 01/10/2024 8:00 AM CDT Lab Department of Infusion Therapy in [place], [place] [address] [place] [phone] Loyda Lennon M.D. [address] [place] [phone] 01/10/2024 8:20 AM CDT Lab Department of Laboratory Medicine and Pathology, [facility], in [place], [place] [address] [place] [phone] Loyda Lennon M.D. [address] [place] [phone] 01/10/2024 10:30 AM CDT Office Visit Department of Oncology in [address] [address] Na Hernandez M.D., Ph.D. [address] [place] [phone] 01/10/2024 11:45 AM CDT Infusion Department of Oncology in [place], [place] [address] [place] [phone] Loyda Lennon M.D. [address] [place] [phone] 01/17/2024 8:45 AM CDT Lab Department of Oncology in [place], [place] [address] [place] [phone] Loyda Lennon M.D. [address] [place] [phone] 01/17/2024 10:00 AM CDT Infusion Department of Oncology in [place], [place] [address] [place] [phone] Loyda Lennon M.D. [address] [place] [phone] 01/24/2024 8:00 AM CDT Lab Department of Laboratory Medicine and Pathology, [facility], in [place], [place] [address] [place] [phone] Loyda Lennon M.D. [address] [place] [phone] 01/24/2024 8:15 AM CDT Lab Department of Oncology in [place], [place] [address] [place] [phone] Loyda Lennon M.D. [address] [place] [phone] 01/24/2024 9:15 AM CDT Infusion Department of Oncology in [place], [place] [address] [place] [phone] Loyda Lennon M.D. [address] [place] [phone] Scheduled Procedures Name Priority Associated Diagnoses Date/Ti me HEPATECTOMY RESECTION LIVER Cholangiocarcinoma (HCC) ULTRASOUND LIVER Cholangiocarcinoma (HCC) RECONSTRUCTION PORTAL VEIN Cholangiocarcinoma (HCC) documented as of this encounter Visit Diagnoses Diagnosis Senior Living Current Drug Therapy, Chemotherapy- Primary Cholangiocarcinoma (HCC) Peritoneal Carcinomatosis (HCC) Neutropenia Chemotherapy Induced (HCC) Pure Hypercholesterolemia documented in this encounter Administered Medications Inactive Administered Medications - up to 3 most recent administrations Medication Order MAR Action Action Date Dose Rate Site dexAMETHasone injection 10 mg (DECADRON) 10 mg, intravenous, Once, On Sat09/10/23 at 1515, For 1 dose Given 09/10/2023 3:03 PM CDT 10 mg diphenhydrAMINE 25 mg in NaCl 0.9% IVPB (BENADRYL) 25 mg, intravenous, at 101 mL/hr, Administer over 30 Minutes, Once, On Sat09/10/23 at 1515, For 1 dose New Bag 09/10/2023 3:07 PM CDT 25 mg 101 mL/hr famotidine injection 20 mg (PEPCID) 20 mg, intravenous, Once, On Sat09/10/23 at 1515, For 1 dose Given 09/10/2023 2:58 PM CDT 20 mg heparin flush 500 Units 500 Units, intra-catheter, As needed, line care, Starting on Sat09/10/23 at 1448, When IVAD accessed and not infusing: When no infusion to maintain patency flush every 7 days following NaCL flush. 5 mL (500 units) of Heparin 100 units/mL to each port/lumen. When IVAD not accessed or infusing: When no infusion to maintain patency flush every 28 days following NaCL flush. 5 mL (500 units) of Heparin 100 units/mL to each port/lumen. Given 09/10/2023 6:16 PM CDT 500 Units ondansetron (PF) injection 8 mg (ZOFRAN) 8 mg, intravenous, Once, On Sat09/10/23 at 1515, For 1 dose Given 09/10/2023 3:00 PM CDT 8 mg PACLitaxeL 126 mg in NaCl 0.9% (non-PVC/non-DEHP) 296 mL IVPB (TAXOL) 126 mg (rounded from 128.4 mg = 60 mg/m2 ? 2.14 m2 Treatment Plan BSA from Measured weight), intravenous, at 296 mL/hr, Administer over 1 Hours, Once, On Sat09/10/23 at 1645, For 1 dose, Administer immediately after the end of the CTX-009 infusion. Administer via 0.22 micron in-line filter. New Bag 09/10/2023 5:15 PM CDT 126 mg 296 mL/hr Research IRB [id number] CTX-009 900 mg in NaCl 0.9% (non-PVC/non-DEHP) 250 mL IVPB 900 mg (10 mg/kg ? 90 kg Treatment plan Measured weight), intravenous, at 250 mL/hr, Administer over 1 Hours, Once, On Sat09/10/23 at 1545, For 1 dose, May administer 15 minutes [...] bag and tubing are non-PVC. New Bag 09/10/2023 4:04 PM CDT 900 mg 250 mL/hr sodium chloride 0.9 % injection 10-20 mL 10-20 mL, intra-catheter, As needed, line care, Starting on Sat09/10/23 at 1448, When IVAD accessed and not infusing: When no infusion to maintain patency flush every 7 days followed by heparin flush. 10 mL to each port/lumen. When IVAD not accessed or infusing: When no infusion to maintain patency flush every 28 days followed by heparin flush. 10 mL to each port/lumen. Given 09/10/2023 6:16 PM CDT 10 mL documented in this encounter Additional Health Concerns Infection Onset Date Last Indicated Resolved Time Protective Environment 11/07/2022 11/07/2022 documented as of this encounter Care Teams Volleyball Assembler Relationship Specialty Start Date End Date Mark Colorado M.D. [address] [place] [address] PCP - General Family Medicine 11/09/22 documented as of this encounter
--- OUTSIDE RECORDS SUMMARY | 2023-11-05 22:10 | XMS_ITS | Encounter Summary ---
Author Organization [facility] Address [address] [place] [address] Care Team Providers Care Swimmer Name Role Phone Mark Colorado M.D. Primary Care Provider [phone] Reason for Visit * Reason Comments Headache Pt comes in for eval uation of an occipital headache that started about 1900. Associated symptoms: chest pain. Pain is better when sitting up. He took hydrocodone at home prior to arrival without relief. No obvious neurological deficits on exam. He is on an experimental medication per trial and apparently one of the enrolled persons had a stroke (see EMR August 29); he is concerned that this may be related. Encounter Details Date Type Department Care Team (Late st Contact Info) Description 09/03/2023 2:39 AM CDT - 09/03/2023 6:29 AM CDT Emergency [facility] [address] [place] [phone] Erin Maldonado P.A.Mendoza., P.A., M.S. [address] [place] [address] Headache Unspecified (Primary Dx); Pain Chest Atypical Discharge Disposition: Home or Self Care Social [...] your living situation today? I have a [facility] place to live 09/10/2022 Sex and Gender Information Value Date Recorded Sex Assigned at Male 09/10/2022 12:02 PM CDT Gender Identity Male 09/10/2022 12:02 PM CDT Sexual Orientation Straight 09/10/2022 12 :02 PM CDT documented as of this encounter Last Filed Vital Signs Vital Sign Reading Time Taken Comments Blood Pressure 153/74 09/03/2023 6:00 AM CDT Pulse 74 09/03/2023 6:00 AM CDT Temperature 36.9 ??C (98.4 ??F) 09/03/2023 2:48 AM CD T Respiratory Rate 10 09/03/2023 6:00 AM CDT Oxygen Saturation 95% 09/03/2023 6:00 AM CDT Inhaled Oxygen Concentration - - Weight 90.7 kg (199 lb 15.3 oz) 09/03/2023 2:44 AM CDT Height - - Body Mass Index 27.38 08/13/2023 1:06 PM CDT documented in this encounter Discharge Instructions * Discharge Instructions* Erin Maldonado P.A.-Reva., P.A., M.S. - 09/03/2023 6:22 AM CDT Take Tylenol for pain relief, as needed. Take your home prescribed Dilaudid for added pain relief, as needed. Stay well hydrated by drinking plenty of fluids. Follow up with your primary care provider and oncology team for reassessment. Return to the ER if your symptoms worsen. * Attachments The following attachments cannot be sent through Care Everywhere. * Nonspecific Chest Pain Adult (Kazakh) * General Headache Without Cause [id number]-hg-[id number] (Kazakh) documented in this encounter Medications at Time of Discharge Medication Sig Dispensed Refills Start Date End Date bisacodyL (DULCOLAX) 10 mg suppositoryIndicatio ns:Constipation Slow Transit Insert 1 suppository (10 mg [...] Take 200 mg by mouth daily. glucosamine evr-tqmuahcdtk-ohm 500-200-150 mg tablet Take 1 tablet by [...] of beverage. 10/23/2022 sennosides (senna) 8.6 mg tabletIndications:Co nstipation Slow Transit Take 1 tablet (8.6 mg total) by mouth 2 (two) times a day. 90 tablet 2 03/03/2023 tamsulosin (FLOMAX) 0.4 mg 24 hr capsule Take 1 capsule (0.4 mg total) by mouth daily. 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 16 g 3 02/14/2023 10/24/2023 HYDROmorphone (DILAUDID) 2 mg tabletIndications:Ch ronic Pain/Nonacute Pain Take 1 tablet (2 mg total) by mouth every 4 (four) hours as needed for pain Indication: Chronic Pain/Nonacute Pain. 42 tablet 09/02/2023 09/20/2023 lisinopriL (PRINIVIL,ZESTRIL) 5 mg tablet Take 1 tablet (5 mg total) by mouth daily. 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 30 tablet 3 11/02/2022 10/02/2023 documented as of this encounter ED Notes * Erin Maldonado P.A.-Reva., P.A., M.S. - 09/03/2023 2:47 AM CDT CHIEF COMPLAINT/REASON FOR VISIT Headache (Pt comes in for evaluation of an occipital headache that started about 1900. Associated symptoms: chest pain. Pain is better when sitting up. He took hydrocodone at home prior to arrival without relief. No obvious neurological deficits on exam. He is on an experimental medication per trial and apparently one of the enrolled persons had a stroke (see EMR August 29); he is concerned that this may be related.) PHYSICAL EXAMINATION Nursing notes reviewed. Initial Vitals Temperature 09/03/23 0248 36.9 ??C Pulse Rate 09/03/23 0248 68 Heart Rate 09/03/23 0330 68 Resp Rate 09/03/23 0248 18 Blood Pressure 09/03/23 0248 153/79 SpO2 09/03/23 0248 99 % Pain Score 09/03/23 0244 8 Vitals: 09/03/23 0430 09/03/23 0500 09/03/23 0530 09/03/23 0600 BP: 143/71 138/67 153/74 BP Location: Patient Position: Pulse: 81 75 69 74 Resp: 15 14 16 10 Temp: TempSrc: SpO2: 98% 99% 98% 95% Weight: General: Awake, alert, oriented x3. Well-developed, hydrated and nourished. Nontoxic. He is holdingan ice pack on the back of his head. He appears uncomfortable. Mild distress. Head: Normocephalic, atraumatic. Eyes: Normal sclerae and conjunctivae, PERRLA, extraocular movements intact ENT: Oropharynx is clear. Tongue is midline and normal in appearance without lesions. No buccal lesions noted. No posterior pharyngeal erythema or exudate. No tonsillar enlargement. Nose is symmetric. Nares patent. Nasal septum is midline without hematoma. Moist mucus membranes. EACs clear. TMs arenormal in appearance with normal landmarks and cone of light. Hearing is grossly normal. Neck: Supple, full range of motion, no masses, trachea midline, no lymphadenopathy, no meningeal signs, no Cspine tenderness, no JVD. Heart: Regular rate and rhythm. S1 and S2 normal. No murmurs, gallops, or rubs. Chest/Lungs: Normal respiratory effort. No labored breathing. No stridor, retractions, or respiratory distress. Lungs clear to auscultation bilaterally. No wheezing, rales, or rhonchi. Abd: Soft, symmetric, nontender, nondistended, normal bowel sounds. No masses or organomegaly. No rebound or guarding. Back: Normal to inspection. No deformity or external signs of trauma. Posture is upright. Normal curvature of spine. No spinal or paraspinal tenderness, no costovertebral angle tenderness. No discomfort is noted with movement. Ext: Warm, well-perfused. No cyanosis, clubbing, or edema. No bruising, swelling or deformity. Motor function is normal with full strength bilaterally to upper and lower extremities. Normal range of motion without bony tenderness. Gait is smooth and steady. Skin: Warm, dry, normal color for ethnicity. No rashes or diaphoresis. Nailbeds pink with no cyanosis or clubbing. Neuro: Awake, alert. Oriented x 3. Follows simple/complex commands. GCS 15. Cognition normal. Speech clear, tongue function normal. No aphasia or dysarthria. Normal language processing. No facial droop, visual field deficit, gaze deviation, nystagmus or neglect. No CN palsies. No pronator drift. 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 Normal dorsi/plantar flexion of ankles bilaterally. SILT. Patient able to ambulate without difficulty. No ataxia. No cerebellar signs, orvgjz-waou-icjfdk, heel/comer andRAM testing all normal. Vascular: Peripheral pulses symmetric, normal cap refill. Psych: Pleasant and appropriate. ED Course as of 09/03/23 0633 SatSep 03, 2023 025 EKG reviewed and showed normal sinus rhythm, heart rate 69. ST elevation, possible early repolarization. Present on previous EKG from 03/15/23, as well. There are no reciprocal changes. Anteriorforces increased on today's EKG. 0255 Met with patient to perform history and physical exam, outline emergency department work up and initial treatment, as well as explain expected time frame. 0343 BMP is unremarkable. 0344 The patient was reassessed and updated on results. Pain is improved to 5/10 and is tolerable after ED intervention. Pain is most prominent in the back of his head. 0351 CBC reveals anemia (Hgb 10.3, consistent with previous in the past three weeks). Initial Trop is normal (9). 0351 The patient is in radiology now. 0355 INR is 1.2. APTT is normal. 0409 The patient has returned from radiology. 0412 The patient was reassessed and updated on results and plan. He reports headache has returned after lying flat for CT scans. He requests additional analgesics for headache relief. We will order another dose of fentanyl as this worked well before. A bedside point of care cardiac ultrasound was performed and shows normal cardiac activity and function. There is no obvious pericardial effusion. 0455 CT head and CTA head/neck show: 1. No acute intracranial abnormalities. 2. No intracranial large vessel occlusion or saccular aneurysm. 3. No hemodynamically significant stenosis within the neck. 0455 The patient was reassessed and updated on results and plan. He reports slight improvement in headache after second dose of Fentanyl. He denies any additional analgesics at this time. He states that pain is now radiating into his lower back. Awaiting CT chest results and serial Troponin. 0512 CT chest shows: 1. Negative for acute pulmonary embolism. 2. Small (sub-6 mm ) subsolid pulmonary nodules within the lungs bilaterally and mild right hilar lymphadenopathy, nonspecific and not significantly changed. 3. Unchanged hypodense lesion within the hepatic hilum measuring 3.6 x 1.8 cm and compatible with history of perihilar cholangiocarcinoma. 4. Mildly increased splenomegaly measuring 14.3 cm AP (previously 13.9 cm). 0514 I consulted [facility] to consult Oncology. Eros will call me back. 0527 Serial Trop has been drawn and is pending. [address] Arriaga who reviewed the patient's past treatment with the trial chemo agent as the patient has received 9 doses of this agent without adverse effect. Dr. Turk also did not feel thatNeulasta was likely responsible for his symptoms as he received this medication three days ago. Symptomatic treatment advised. Dr. Arriaga informed me that he will notify the patient's treatment team to relay these concerns. 0537 The patient was reassessed and updated on results and plan. He reports headache has improved to 4/10 and he states that his chest pain resolved a couple of hours ago. He declines additional analgesics at this time. 0606 Serial Troponin is unchanged. 0618 The patient was reassessed and updated on results and plan. The patient states he was able to sleep for a little bit and this also improved his pain. He states that he has refills of Dilaudid att pharmacy ready to pick out hand and still has some remaining tablets at home. He was encouraged to take this medication as needed for pain relief. Close follow-up with his primary care provider and onco logy team was advised. We discussed danger signs for him to return to the emergency department. Thepatient and his were in agreement with plan. Final Diagnoses: as of 09/03/23 0633 Headache Unspecified Pain Chest Atypical MEDICAL DECISION MAKING: Jorge Luis Sepulveda is a 68 y.o. male with the following comorbidities affecting his care: Hypercholesterolemia, anemia, cholangiocarcinoma (on a clinical trial chemotherapy, last infusion 08/28/2023, first dose of Neulasta 08/29/23), peritoneal carcinomatosis, chemotherapy-induced pancytopenia. He is here for evaluation of a constant, occipital headache that radiates between the back of his head to hismidsternal chest area. Pain started gradually at 1900 last evening after eating dinner. Pain has been a constant dull ache that increases in severity intermittently. Pain is most prominent in the back of his head. He rates the pain 8/10 currently and describes it as a pressure sensation. Pain worsens with lying flat and is improved with sitting and standing upright. He took Dilaudid at home at 2200 without relief in symptoms. No other treatments tried. He denies any fall, head injury, or trauma. He is not on any anticoagulation or antiplatelets. 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 Additionally, he denies any fevers, chills, sweats, neck stiffness, earache, runny nose, sore throat, cough, shortness of breath, sputum, wheezing, abdominal pain, rash or skin changes, or other concerning symptoms. The patient states that he was notified by his oncologist on 08/30/2023 of a serious adverse event of a stroke requiring hospitalization in another patient on this clinical trial chemotherapy. Per EMRreview, the patient's oncologist informed him that the study was on temporary hold for any new enrollment, however the patient was advised that he may continue with trial treatment. The patient is concerned that his symptoms may be related. The patient denies chest pain is similar to recent ERCP procedure performed in early July. Per EMR review, the patient underwent a recent ERCP 08/02/2023 that showed prior biliary sphincterotomy appeared open, 2 stents from the left hepatic duct in the right hepatic duct were seen in the major papilla, both in good position. Two stents were removed from the left hepatic duct in the right hepatic duct. The biliary tree was swept and nothing was found. One 10 Tristanian 20 cm Ismalin temporary plastic biliary stent was placed in the left hepatic duct and 110 Tristanian 18.5 cm Johlin temporary plastic biliary stent was placed in the right hepatic duct. CT chest with IV contrast (07/31/23) revealed: 1. No significant change since 06/05/2023 including a few previously stable tiny nodules and mildly prominent thoracic nodes. CT abdomen/pelvis with IV contrast (07/31/23) revealed: 1. Peritoneal metastatic disease has decreased since 06/05/2023. 2. No measurable change in size of perihilar cholangiocarcinoma. 3. Slight increase in mild splenomegaly. Increase in small volume ascites. Per EMR review, the patient had a recent transthoracic echocardiogram (05/31/2023): 1. Normal left ventricular chamber size, no regional wall motion abnormalities, calculated 2-D biplane volumetric ejection fraction of 62%, global averaged longitudinal peak systolic strain is normalat -19% (normal = more negative than -18%). 2. Normal left ventricular geometry, normal diastolic function. 3. Normal right ventricular chamber size, normal systolic function, estimated right ventricular systolic pressure 26 mmHg (right atrial pressure of 5 mmHg). 4. Bileaflet mitral valve prolapse associated with mild late systolic mitral regurgitation. 5. No pericardial effusion. 6. Compared to the report of 03/11/2023 no significant change has occurred. Side by side comparisonof images performed. On ER arrival, the patient is well appearing, nontoxic with slightly elevated blood pressure and otherwise normal vitals. Exam is unrevealing. Neurologic exam is entirely normal in the emergency department. There are no focal neurologic deficits. NIHSS score is zero. Differential diagnoses for headache: Migraine, tension headache, cluster headache, aneurysm, subarachnoid hemorrhage, subdural hematoma, epidural hematoma, temporal arteritis, glaucoma, hypertension,transient ischemic attack, CVA, brain tumor, carotid or vertebral arterial dissection, meningitis, drug withdrawal, head injury, post-lumbar puncture, sinusitis, dehydration, dental, TMJ, among others. Differential diagnosis for chest pain: Myocardial ischemia, pericarditis, aortic dissection, pulmonary embolism, pneumothorax, esophageal rupture, valvular disease, pulmonary hypertension, pneumonia,pleurisy, myocarditis, asthma exacerbation, gastroesophageal reflux disease, peptic ulcer disease, biliary colic, pancreatitis, musculoskeletal, anxiety, among others. ED course/interventions: Met with patient upon ER arrival. Considered activating a stroke code, however, the patient's symptoms began more than 4.5 hours prior to ER arrival, there are no focal neurologic deficits on exam, and his NIHSS score is zero. For all these reasons, he is not a candidate for thrombolytic therapy. An IV was started by the RN. IVF bolus was ordered. Fentanyl was ordered forpain relief with eventual improvement. Aspirin was not ordered for chest pain relief out of concernfor intracranial bleeding. Nitroglycerin was not ordered for chest pain relief given severe headache, which is the patient's most prominent symptom in the emergency department. An EKG was ordered andshowed normal sinus rhythm, heart rate 69. There is slight ST elevation noted with possible early repolarization. This was also present on his previous EKG from 03/15/2023. There are no reciprocal changes. Anterior forces appear increased on today's EKG when compared to prior. Labs were ordered, including CBC, BMP, coags, and cardiac enzymes. Abnormal labs revealed baseline anemia (Hgb 10.3, consistent with previous). A bedside point of care cardiac ultrasound was performed and shows normal cardiac activity and function. There is no obvious pericardial effusion. Given recent serious adverse event of a stroke in another patient on this clinical chemotherapy trial, a CT head and CTA head and neck were ordered. CT head/CTA head/neck show no acute findings. Given chest pain in the setting of malignancy, a CT chest was also ordered to rule out PE. CT chest shows no pulmonary embolism. Small (sub-6 mm ) subsolid pulmonary nodules within the lungs bilaterally and mild right hilar lymphadenopathy, nonspecific and not significantly changed. Unchanged hypodense lesion within the hepatic hilum measuring 3.6 x 1.8 cm and compatible with history of perihilar cholangiocarcinoma. Mildly increased splenomegaly measuring 14.3 cm AP (previously 13.9 cm). I called [facility] to consult Oncology to inquire if the patient's symptoms may be adverse effects secondary to his trial chemo agent and/or Neulasta. I spoke with Dr. Arriaga who reviewed the patient's past treatment with the trial chemo agent as the patient has received 9 doses of this agent without adverse effect. Dr. Turk also did not feel that Neulasta was likely responsible for his symptoms as he received this medication three days ago. Symptomatic treatment advised. Dr. Arriaga informed me that he willnotify the patient's treatment team to relay these concerns. I do not believe this patient has an intracranial tumor. There are no neurological deficits and head imaging shows no mass. I do not believe this patient has a SAH as the PETIT was not of sudden onset or maximal severity at onset and he is not significantly hypertensive. CT head and CTA head/neck shows no acute findings. There is no dissection or stroke identified on CT head or CTA head/neck. I do not believe this patient has a PETIT related to meningitis as he does not have fever, feel ill orhave meningeal signs on exam. I do not believe that the PETIT is from sinusitis as the patient has no rhinorrhea or nasal congestionand no pain on palpation over sinuses. I do not believe the patient has temporal arteritis. There is no pain over the temporal arteries and no proximal muscle weakness or pain. EKG reviewed does not show acute ischemia and no signs of pericarditis. I do not believe this patient has a thoracic aortic dissection, as the pain is not ripping or tearing, it does not go through to his back, and he has no history of poorly controlled high blood pressure. CT chest shows no thoracic aortic aneurysm or dissection. I do not believe the patient's pain represents a PE. Chest pain is not pleuritic and CT chest showsno PE. The patient has no abdominal pain or tenderness on exam, so abdominal workup was not felt warranted. This is not chest pain from pneumonia as this patient does not have productive cough or fever and the CT chest did not demonstrate infiltrates. This is not chest pain from esophageal rupture as there was preceding forceful vomiting or retchingand the CT chest does not show mediastinal free air. There is no shortness of breath or evidence of pneumothorax on CT chest. CBC shows no severe anemia. Impression/plan: Etiology of headache and atypical chest pain is unclear at this time. Admission/obs considered but not felt warranted at this time. Using shared decision making, the patient is felt appropriate for discharge home and he will be discharged home with OTC analgesics, home Dilaudid, asprescribed, maintain adequate hydration. The evaluation, plan and return precautions were reviewed w ith patient and family and they were understanding and in agreement with plan. Patient and family questions were answered. Close follow up with PCP and oncologist advised. -- History was obtained from: The patient and EMR review. -- Nursing documentation and prior inpatient and outpatient records were reviewed in the electronicmedical record to facilitate decision making regarding patient care. -- I personally reviewed by visualization, independent interpretation, and discussed with the patient the results of labs, imaging studies, and EKG as noted above. -- Consultation: Dr. Arriaga (Oncology) -- Prescription management: No new prescriptions or changes to existing home medications. Social Determinants of Health Transportation Needs: No Transportation Needs (09/10/2022) PRAPARE - Transportation Lack of Transportation (Medical): No Lack of Transportation (Non-Medical): No Housing Stability: Low Risk (09/10/2022) Housing Stability Housing: Living Situation: I have a steady place to live Food Insecurity: No Food Insecurity (09/10/2022) Hunger Vital Sign Worried About Running Out of Food in the Last Year: Never true Ran Out of Food in the Last Year: Never true Utilities: Not on file Intimate Partner Violence: Not At Risk (09/10/2022) Humiliation, Afraid, Rape, and Kick questionnaire Fear of Current or Ex-Partner: No Emotionally Abused: No Physically Abused: No Sexually Abused: No Physical Activity: Sufficiently Active (09/10/2022) Exercise Vital Sign Days of Exercise per Week: 5 days Minutes of Exercise per Session: 40 min Dental: Low Risk (09/10/2022) Dental Dental: Regular Dentist: Yes Nutrition: Medium Risk (09/10/2022) Nutrition Nutrition: Servings of Fruits/Vegetables per Day: 3-5 Employment: Low Risk (09/10/2022) Employment Employment Status: Retired PROBLEMS ADDRESSED THIS VISIT: 1. Headache Unspecified 2. Pain Chest Atypical Erin Maldonado P.A.-C., P.A., M.S. 09/03/23 0625 Erin Maldonado P.A.-C., P.A., M.S. 09/03/23 0633 documented in this encounter Plan of Treatment Upcoming Encounters Date Type Department Care Team (Latest Contact Info) Description 11/07/2023 3:15 PM CDT Clinical Communication Virtual Review in [address] [phone] 11/15/2023 6:40 AM CDT Lab Department of Laboratory Medicine and Pathology, [facility], in [place], [place] [address] [place] [phone] Loyda Lennon M.D. [address] [place] [phone] 11/15/2023 8:20 AM CDT Office Visit Department of Oncology in [place], [place] [address] [place] [phone] Manjit Velasquez APRN, C.N.P., D.N.P. [address] [place] [phone] 11/15/2023 9:30 AM CDT Comprehensive Visit Department of Palliative Care in [address] [phone] Patty Gomez APRN, C.N.P., M.S.N. [address] [place] [phone] 11/15/2023 2:15 PM CDT Infusion Department of Oncology in [address] [phone] Loyda Lennon M.D. [address] [place] [phone] 11/22/2023 7:30 AM CDT Lab Department of Oncology in [place], [place] [address] [place] [phone] Loyda Lennon M.D. [address] [place] [phone] 11/22/2023 8:45 AM CDT Infusion Department of Oncology in [address] [phone] Loyda Lennon M.D. [address] [place] [phone] 11/28/2023 3:30 PM CDT Clinical Communication Virtual Review in [place], [place] [address] [place] [address] 11/29/2023 9:00 AM CDT Procedure visit Department of Urology in [place], [place] [address] [place] [phone] Mark Colorado M.D. [address] [place] [phone] 11/29/2023 11:20 AM CDT Lab Department of Laboratory Medicine and Pathology, [facility] in [place], [place] [address] [place] [phone] Loyda Lennon M.D. [address] [place] [phone] 11/29/2023 11:30 AM CDT Lab Department of Oncology in [place], [place] [address] [place] [phone] Loyda Lennon M.D. [address] [place] [phone] 11/29/2023 1:00 PM CDT Infusion Department of Oncology in [place], [place] [address] [place] [phone] Loyda Lennon M.D. [address] [place] [phone] 12/03/2023 1:45 PM CDT Comprehensive Visit Department of Urology in [place], [place] [address] [place] [phone] Mona Egan P.A.-C. [address] [place] [phone] 12/05/2023 1:20 PM CDT Comprehensive Visit Department of Oncology in [place], [place] [address] [place] [phone] Letty Kate M.D. [address] [place] [phone] 12/10/2023 3:00 PM CDT Clinical Communication Virtual Review in [place], [place] 200 [place] [address] 12/10/2023 3:30 PM CDT Procedure visit Department of Urology in [place], [place] [address] [place] [phone] Mark Colorado M.D. [address] [place] [address] [place] [phone] 12/12/2023 3:45 PM CDT Appointment Department of Radiology, [facility], in [place], [place] [address] [place] [phone] Na Hernandez M.D., Ph.D. [address] [place] [phone] 12/13/2023 6:00 AM CDT Lab Department of Laboratory Medicine and Pathology, [facility], in [place], [place] [address] [place] [phone] Loyda Lennon M.D. [address] [place] [phone] 12/13/2023 6:20 AM CDT Lab Department of Infusion Therapy in [place], [place] [address] [place] [phone] Loyda Lennon M.D. [address] [place] [phone] 12/13/2023 11:10 AM CDT Office Visit Department of Oncology in [place], [place] [address] [place] [phone] Na Hernandez M.D., Ph.D. [address] [place] [phone] 12/13/2023 1:00 PM CDT Infusion Department of Oncology in [place], [place] [address] [place] [phone] Loyda Lennon M.D. [address] [place] [phone] 12/20/2023 9:20 AM CDT Lab Department of Infusion Therapy in [place], [place] [address] [place] [phone] Loyda Lennon M.D. [address] [place] [phone] 12/20/2023 10:30 AM CDT Infusion Department of Oncology in [address] [phone] Loyda Lennon M.D. [address] [place] [phone] 12/25/2023 10:30 AM CDT Appointment Division of Gastroenterology in [address] [phone] Na Hernandez M.D., Ph.D. [address] [place] [phone] 12/27/2023 10:15 AM CDT Lab Department of Oncology in [address] [phone] Loyda Lennon M.D. [address] [place] [phone] 12/27/2023 10:30 AM CDT Lab Department of Laboratory Medicine and Pathology, [facility], in [place], [place] [address] [place] [phone] Loyda Lennon M.D. [address] [place] [phone] 12/27/2023 11:45 AM CDT Infusion Department of Oncology in [place], [place] [address] [place] [phone] Loyda Lennon M.D. [address] [place] [phone] 01/03/2024 1:00 PM CDT Clinical Communication Virtual Review in [place], [place] 200 [place] [address] 01/10/2024 8:00 AM CDT Lab Department of Infusion Therapy in [place], [place] [address] [place] [phone] Loyda Lennon M.D. [address] [place] [phone] 01/10/2024 8:20 AM CDT Lab Department of Laboratory Medicine and Pathology, [facility], in [place], [place] [address] [place] [phone] Loyda Lennon M.D. [address] [place] [phone] 01/10/2024 10:30 AM CDT Office Visit Department of Oncology in [place], [place] [address] [place] [phone] Na Hernandez M.D., Ph.D. [address] [place] [phone] 01/10/2024 11:45 AM CDT Infusion Department of Oncology in [place], [place] [address] [place] [phone] Loyda Lennon M.D. [address] [place] [phone] 01/17/2024 8:45 AM CDT Lab Department of Oncology in [place], [place] [address] [place] [phone] Loyda Lennon M.D. [address] [place] [phone] 01/17/2024 10:00 AM CDT Infusion Department of Oncology in [place], [place] [address] [place] [phone] Loyda Lennon M.D. [address] [place] [phone] 01/24/2024 8:00 AM CDT Lab Department of Laboratory Medicine and Pathology, [facility] in [place], [place] [address] [place] [phone] Loyda Lennon M.D. [address] [place] [phone] 01/24/2024 8:15 AM CDT Lab Department of Oncology in [place], [place] [address] [place] [phone] Loyda Lennon M.D. [address] [place] [phone] 01/24/2024 9:15 AM CDT Infusion Department of Oncology in [place], [place] [address] [place] [phone] Loyda Lennon M.D. [address] [place] [phone] Scheduled Procedures Name Priority Associated Diagnoses Date/Ti me HEPATECTOMY RESECTION LIVER Cholangiocarcinoma (HCC) ULTRASOUND LIVER Cholangiocarcinoma (HCC) RECONSTRUCTION PORTAL VEIN Cholangiocarcinoma (HCC) documented as of this encounter Procedures Procedure Name Priority Date/Time Associated Diagnosis Comments TROPONIN T, 2H/6H REFLEX, 5TH GEN, P Timed 09/03/2023 5:[address] CHEST ANGIOGRAM AND PULMONARY ARTERIES WITH IV CONTRAST RAD - Semiurgent (Fast; most ED patients; some inpatients) 09/03/2023 4:[address] HEAD NECK ANGIOGRAM WITH IV CONTRAST RAD - Emergent (Fastest; for the most critically ill patients) 09/03/2023 4:18 AM CDT MORPHOLOGY EVALUATION STAT 09/03/2023 3:21 AM CDT TROPONIN T, BASELINE, 5TH GEN, P STAT 09/03/2023 3:21 AM CDT MANUAL DIFFERENTIAL, B STAT 09/03/2023 3:21 AM CDT ACTIVATED PARTIAL THROMBOPLASTIN TIME (APTT), P STAT 09/03/2023 3:21 AM CDT PROTHROMBIN TIME (PT), P STAT 09/03/2023 3:21 AM CDT CBC WITH DIFFERENTIAL, B STAT 09/03/2023 3:21 AM CDT BASIC METABOLIC PANEL, S/P STAT 09/03/2023 3:21 AM CDT ECG STAT 09/03/2023 2:47 AM CDT documented in this encounter Results * Troponin T, 2 Hour with 6 [...] P.A.-C., P.A., M.S. LAB BLO OD TROPONIN [facility] [address] [place] [phone], [facility] CNFL [facility] [place] [address] * CT Chest Angiogram and Pulmonary Arteries [...] 14.3 cm AP (previously 13.9) Procedure Note Bla Saavedra M.D. - 09/03/2023 EXAM: CT CHEST [...] fenestration of the proximal basilar artery. PROXIMAL bariatric coordinator: ??Patent. POSTERIOR COMM. ARTERIES: Patent on the [...] normal distal ICA in accordance with [place] Symptomatic Carotid Endarterectomy Trial (NASCET). Procedure Note [...] fenestration of the proximal basilar artery. PROXIMAL bariatric coordinator: Patent. POSTERIOR COMM. ARTERIES: Patent on the right and not well-visualized theleft. OTHER: None. NECK: SUPRAHYOID NECK: Unremarkable. INFRAHYOID NECK: Unremarkable. SALIVARY GLANDS: Unremarkable. THYROID: Unremarkable. LYMPH NODES: No pathologic appearing lymphadenopathy. VISUALIZED THORAX: Unremarkable. CERVICAL SPINE: Central posterior disc osteophyte complex at [id number] in probable moderate spinal canal stenosis. Posterolateral [...] LAB BLO OD ADD-ON Performing Organization Address City/State/[facility] Co de Phone Number [facility] [address] [place] [address], [facility] CNFL [facility] [place] [address] * (ABNORMAL) Manual Differential, Blood (09/03/2023 3:21 [...] LAB BLO OD ADD-ON Performing Organization Address [facility] [place] [address], [place] [address] * APTT (Activated Partial Thromboplastin Time) (09/03/2023 3:21 AM CDT) Activated Partial Thrombopl Time, P 32 25 - 37 sec 09/03/2023 3:54 AM CDT [facility] Blood (Blood, Venous) 09/03/2023 3:21 AM CDT 09/03/2023 3:24 AM CDT Erin Maldonado P.A.-C., P.A., M.S. LAB BLO OD ADD-ON Performing Organization Address [facility] [place] [place] [address], [place] [address] * (ABNORMAL) Prothrombin Time (PT) (09/03/2023 3:21 AM CDT) Prothrombin Time, P 13.5(H) 9.4 - 12.5 sec 09/03/2023 3:51 AM CDT CNFL INR 1.2 0.9 - 1.1 09/03/2023 3:51 AM CDT CNFL Comment: ----ADDITIONAL INFORMATION---- Standard intensity warfarin therapeutic range: 2.0 to 3.0 ?? High intensity warfarin therapeutic range: 2.5 to 3.5 Blood (Blood, Venous) 09/03/2023 3:21 AM CDT 09/03/2023 3:24 AM CDT Erin Maldonado P.A.-C., P.A., M.S. LAB BLO OD ADD-ON Performing Organization Address [facility] [place] [address], [place] [address] * Troponin T, Baseline, 5th gen (09/03/2023 3:21 AM CDT) Troponin T, Baseline, 5th gen 9 <=15 ng/L 09/03/2023 3:46 AM CDT CNFL Blood (Blood, Venous) 09/03/2023 3:21 AM CDT 09/03/2023 3:24 AM CDT Erin Maldonado P.A.-C., P.A., M.S. LAB CHARLES HUDSON TROPONIN Performing Organization Address [facility] [place] [address], [place] [address] * (ABNORMAL) Basic Metabolic Panel (09/03/2023 3:21 AM CDT) Potassium, P 4.7 3.6 - 5.2 mmol/L 09/03/2023 3:43 AM CDT CNFL Sodium, P 139 135 - 145 mmol/L 09/03/2023 3:43 AM CDT CNFL Chloride, P 106 98 - 107 mmol/L 09/03/2023 3:43 AM CDT CNFL Bicarbonate, P 26 22 - 29 mmol/L 09/03/2023 3:43 AM CDT CNFL Anion Gap, P 7 7 - 15 09/03/2023 3:43 AM CDT CNFL BUN (Blood Urea Nitrogen), P 28(H) 8 - 24 mg/dL 09/03/2023 3:43 AM CDT CNFL Creatinine 1.15 0.74 - 1.35 mg/dL 09/03/2023 3:43 AM CDT CNFL Estimated GFR (eGFR) 68 >=60 mL/min/BSA 09/03/2023 3:43 AM CDT CNFL Comment: Estimated GFR calculated using the 2020 CKD_EPI creatinine equation. Calcium, Total, P 8.7(L) 8.8 - 10.2 mg/dL 09/03/2023 3:43 AM CDT CNFL Glucose, P 97 70 - 140 mg/dL 09/03/2023 3:43 AM CDT CNFL Blood (Blood, Venous) 09/03/2023 3:21 AM CDT 09/03/2023 3:25 AM CDT Erin Maldonado P.A.-C., P.A., M.S. LAB BLO OD ADD-ON [facility] [address] [place] [address], [facility] CNFL [facility] [place] [address] * (ABNORMAL) CBC with Differential, Blood (09/03/2023 3:21 AM CDT) Hemoglobin 10.3(L) 13.2 - 16.6 g/dL 09/03/2023 3:47 AM CDT CNFL Hematocrit 32.0(L) 38.3 - 48.6 % 09/03/2023 3:47 AM CDT CNFL Erythrocytes 3.22(L) 4.35 - 5.65 x10(12)/ L 09/03/2023 3:47 AM CDT CNFL MCV 99.4(H) 78.2 - 97.9 fL 09/03/2023 3:47 AM CDT CNFL RBC Distrib Width 15.8(H) 11.8 - 14.5 % 09/03/2023 3:47 AM CDT CNFL Platelet Count 140 135 - 317 x10(9)/L 09/03/2023 3:47 AM CDT CNFL Leukocytes 4.1 3.4 - 9.6 x10(9)/L 09/03/2023 3:47 AM CDT CNFL Neutrophils See manual differential 1.56 - 6.45 x10(9)/L 09/03/2023 6:37 AM CDT CNFL Blood (Blood, Venous) 09/03/2023 3:21 AM CDT 09/03/2023 3:24 AM CDT Erin Maldonado P.A.-C., P.A., M.S. LAB BLO OD ADD-ON [facility] [address] [place] [address], [facility] [place] [address] * ECG 12 Lead (09/03/2023 2:47 AM CDT) Ventricular Rate ECG/Min 69 BPM MUSE MO Interval 168 ms MUSE QRSD Interval 94 ms MUSE QT Interval 374 ms MUSE QTC Interval 400 ms MUSE P [place] 84 degrees MUSE R [place] 53 degrees MUSE T Wave [place] 58 degrees MUSE 09/03/2023 2:47 AM CDT 09/03/2023 10:13 AM CDT Impressions MUSE - 09/03/2023 3:00 AM CDT Sinus rhythm Nonspecific ST abnormality When compared with ECG of 15-Mar-2023 15:01, Anterior forces have Increased Revised Report Narrative Procedure Note Jamal Mortensen Jr., M.D. - 09/03/2023 IMPRESSION: Sinus rhythm Nonspecific ST abnormality When compared with ECG of 15-Mar-2023 15:01, Anterior forces have Increased Revised Report Erin Maldonado P.A.-C., PLillian, M.S. ECG ORD ERABLES MUSE NA documented in this encounter Visit Diagnoses Diagnosis Headache Unspecified- Primary Pain Chest Atypical documented in this encounter Administered Medications Inactive Administered Medications - up to 3 most recent administrations Medication Order MAR Action Action Date Dose Rate Site fentaNYL injection 25 mcg (SUBLIMAZE) 25 mcg, intravenous, Once, On Sat09/03/23 at 0420, For 1 dose Given 09/03/2023 4:27 AM CDT 25 mcg fentaNYL injection 50 mcg (SUBLIMAZE) 50 mcg, intravenous, Once, On Sat09/03/23 at 0312, For 1 dose Given 09/03/2023 3:27 AM CDT 50 mcg iohexoL 350 mg iodine/mL solution 100 mL (OMNIPAQUE) 100 mL, intravenous, Once in imaging, contrast, Starting on Sat09/03/23 at 0339, For 1 dose Given 09/03/2023 4:15 AM CDT 100 mL iohexoL 350 mg iodine/mL solution 100 mL (OMNIPAQUE) 100 mL, intravenous, Once in imaging, contrast, Starting on Sat09/03/23 at 0344, For 1 dose Given 09/03/2023 4:14 AM CDT 100 mL NaCl 0.9 % bolus 1,000 mL 1,000 mL, intravenous, at 1,000 mL/hr, Administer over 1 Hours, Once, On Sat09/03/23 at 0344, For 1 dose New Bag 09/03/2023 4:14 AM CDT 1,000 mL 1000 mL/hr NaCl 0.9 % bolus 85 mL 85 mL, intravenous, at 85 mL/hr, Administer over 1 Hours, Once, On Sat09/03/23 at 0344, For 1 dose New Bag 09/03/2023 4:14 AM CDT 85 mL 85 mL/hr NaCl 0.9 % bolus 85 mL 85 mL, intravenous, at 85 mL/hr, Administer over 1 Hours, Once, On Sat09/03/23 at 0345, For 1 dose New Bag 09/03/2023 4:16 AM CDT 85 mL 85 mL/hr sodium chloride 0.9 % injection 10 mL 10 mL, intravenous, As needed, line care, Starting on Sat09/03/23 at 0308, Peripheral Intravenous Catheter and Rapid Infusion Catheter, prior to blood sampling, post blood transfusion or post blood sampling sodium chloride 0.9 % injection 10 mL 10 mL, intravenous, Once, On Sat09/03/23 at 0344, For 1 dose Given 09/03/2023 4:15 AM CDT 10 mL sodium chloride 0.9 % injection 10 mL 10 mL, intravenous, Once, On Sat09/03/23 at 0345, For 1 dose Given 09/03/2023 4:14 AM CDT 10 mL sodium chloride 0.9 % injection 3 mL 3 mL, intravenous, As needed, line care, Starting on Sat09/03/23 at 0308, Prior to and following infusion and between multiple consecutive infusions: sodium chloride 0.9 % injection sodium chloride 0.9 % injection 3 mL 3 mL, intravenous, Every 12 hours scheduled, First dose on Sat09/03/23 at 0900, Peripheral Intravenous Catheter and Rapid Infusion Catheter, when no infusion to maintain patency documented in this encounter Active and Recently Administered Medications Times are shown in CDT. Scheduled Medication Order 09/01/2023 09/02/2023 09/03/2023 fentaNYL injection 25 mcg (SUBLIMAZE) (COMPLETED) 25 mcg, intravenous, Once, On Sat09/03/23 at 0420, For 1 dose 0427 (Given - Provid er: Adria Stern R.N.) fentaNYL injection 50 mcg (SUBLIMAZE) (COMPLETED) 50 mcg, intravenous, Once, On Sat09/03/23 at 0312, For 1 dose 0327 (Given - Provid er: Adria Stern R.N.) NaCl 0.9 % bolus 1,000 mL (COMPLETED) 1,000 mL, intravenous, at 1,000 mL/hr, Administer over 1 Hours, Once, On Sat09/03/23 at 0344, For 1 dose 0414 (New Bag - Prov ider: Adria Stern R.N.)0537 (Stopped - Provider: Adria Stern R.N.) NaCl 0.9 % bolus 85 mL (COMPLETED) 85 mL, intravenous, at 85 mL/hr, Administer over 1 Hours, Once, On Sat09/03/23 at 0344, For 1 dose 0414 (New Bag - Prov ider: Jose Wright(R)(CT), R.T.(R))0416 (Stopped - Provider: Adria Stern R.N.) NaCl 0.9 % bolus 85 mL (COMPLETED) 85 mL, intravenous, at 85 mL/hr, Administer over 1 Hours, Once, On Sat09/03/23 at 0345, For 1 dose 0416 (New Bag - Prov ider: Jose Wright(R)(CT), R.T.(R))0418 (Stopped - Provider: Adria Stern R.N.) sodium chloride 0.9 % injection 10 mL (COMPLETED) 10 mL, intravenous, Once, On Sat09/03/23 at 0344, For 1 dose 0415 (Given - Provid er: Jose Wright(R)(CT), R.T.(R)) sodium chloride 0.9 % injection 10 mL (COMPLETED) 10 mL, intravenous, Once, On Sat09/03/23 at 0345, For 1 dose 0414 (Given - Provid er: Jose Wright(R)(CT), R.T.(R)) sodium chloride 0.9 % injection 3 mL 3 mL, intravenous, Every 12 hours scheduled, First dose on Sat09/03/23 at 0900, Peripheral Intravenous Catheter and Rapid Infusion Catheter, when no infusion to maintain patency PRN Medication Order 09/01/2023 09/02/2023 09/03/2023 iohexoL 350 mg iodine/mL solution 100 mL (OMNIPAQUE) (COMPLETED) 100 mL, intravenous, Once in imaging, contrast, Starting on Sat09/03/23 at 0339, For 1 dose 0415 (Given - Provid er: Jose Wright(R)(CT), R.T.(R)) iohexoL 350 mg iodine/mL solution 100 mL (OMNIPAQUE) (COMPLETED) 100 mL, intravenous, Once in imaging, contrast, Starting on Sat09/03/23 at 0344, For 1 dose 0414 (Given - Provid er: Jose Wright(R)(CT), Jose(R)) sodium chloride 0.9 % injection 10 mL 10 mL, intravenous, As needed, line care, Starting on Sat09/03/23 at 0308, Peripheral Intravenous Catheter and Rapid Infusion Catheter, prior to blood sampling, post blood transfusion or post blood sampling sodium chloride 0.9 % injection 3 mL 3 mL, intravenous, As needed, line care, Starting on Sat09/03/23 at 0308, Prior to and following infusion and between multiple consecutive infusions: sodium chloride 0.9 % injection documented in this encounter Additional Health Concerns Infection Onset Date Last Indicated Resolved Time Protective Environment 11/07/2022 11/07/2022 documented as of this encounter Care Teams Swimmer Relationship Specialty Start Date End Date Mark [place] M.D. [facility] [place] [phone] PCP - General Family Medicine 11/09/22 documented as of this encounter
--- OUTSIDE RECORDS SUMMARY | 2023-11-05 22:10 | XMS_ITS | Encounter Summary ---
Author Organization [facility] Address [address] [place] [address] Care Team Providers Care Pipe Caulker Name Role Phone Mark Colorado M.D. Primary Care Provider [phone] Encounter Details Date Type Department Care Team (Late st Contact Info) Description 09/10/2023 Orders Only Department of Oncology in [place], [place] [address] [place] [address] Luna Laboy Cholangiocarcinoma (HCC) (Primary Dx); Slab Off Mill Tender Current Drug Therapy, Chemotherapy; Peritoneal Carcinomatosis (HCC); [...] have a [facility] to live 09/10/2022 Sex and Gender Information Value Date Recorded Sex Assigned at Male 09/10/2022 12:02 PM CDT Gender Identity Male 09/10/2022 12:02 PM CDT Sexual Orientation Straight 09/10/2022 12 :02 PM CDT documented as of this encounter Plan of Treatment Upcoming Encounters Date Type Department Care Team (Latest Contact Info) Description 11/07/2023 3:15 PM CDT Clinical Communication Virtual Review in [place], [place] [address] [place] [address] 11/15/2023 6:40 AM CDT Lab Department of Laboratory Medicine and Pathology, [facility] in [address] [address] Loyda Lennon M.D. [address] [place] [phone] 11/15/2023 8:20 AM CDT Office Visit Department of Oncology in [address] [address] Manjit Velasquez APRN, C.N.P., D.N.P. [address] [place] [phone] 11/15/2023 9:30 AM CDT Comprehensive Visit Department of Palliative Care in [address] [phone] Patty Gomez APRN, C.N.P., M.S.N. [address] [place] [phone] 11/15/2023 2:15 PM CDT Infusion Department of Oncology in [place], [place] [address] [place] [phone] Loyda Lennon M.D. [address] [place] [phone] 11/22/2023 7:30 AM CDT Lab Department of Oncology in [place], [place] [address] [place] [phone] Loyda Lennon M.D. [address] [place] [phone] 11/22/2023 8:45 AM CDT Infusion Department of Oncology in [place], [place] [address] [place] [phone] Loyda Lennon M.D. [address] [place] [phone] 11/28/2023 3:30 PM CDT Clinical Communication Virtual Review in [place], [place] [address] [place] [address] 11/29/2023 9:00 AM CDT Procedure visit Department of Urology in [place], [place] [address] [place] [phone] Mark Colorado M.D. [facility] [place] [phone] 11/29/2023 11:20 AM CDT Lab Department of Laboratory Medicine and Pathology, [facility], in [place], [place] [address] [place] [phone] Loyda Lennon M.D. [address] [place] [phone] 11/29/2023 11:30 AM CDT Lab Department of Oncology in [place], [place] [address] [place] [phone] Loyda Lennon M.D. [address] [place] [phone] 11/29/2023 1:00 PM CDT Infusion Department of Oncology in [place], [place] [address] [place] [phone] Loyda Lennon M.D. [address] [place] [phone] 12/03/2023 1:45 PM CDT Comprehensive Visit Department of Urology in [place], [place] [address] [place] [phone] Mona Egan P.A.-C. [address] [place] [phone] 12/05/2023 1:20 PM CDT Comprehensive Visit Department of Oncology in [place], [place] [address] [place] [phone] Letty Kate M.D. [address] [place] [phone] 12/10/2023 3:00 PM CDT Clinical Communication Virtual Review in [place], [place] [address] [place] [address] 12/10/2023 3:30 PM CDT Procedure visit Department of Urology in [place], [place] [address] [place] [phone] Mark Colorado M.D. [address] [place] [address] [place] [phone] 12/12/2023 3:45 PM CDT Appointment Department of Radiology, [facility], in [place], [place] [address] [place] [phone] Na Hernandez M.D., Ph.D. [address] [place] [phone] 12/13/2023 6:00 AM CDT Lab Department of Laboratory Medicine and Pathology, [facility], in [place], [place] [address] [place] [phone] Loyda Lennon M.D. [address] [place] [phone] 12/13/2023 6:20 AM CDT Lab Department of Infusion Therapy in [place], [place] [address] [place] [phone] Loyda Lennon M.D. [address] [place] [phone] 12/13/2023 11:10 AM CDT Office Visit Department of Oncology in [place], [place] [address] [place] [phone] Na Hernandez M.D., Ph.D. [address] [place] [address] 12/13/2023 1:00 PM CDT Infusion Department of Oncology in [place], [place] [address] [place] [phone] Loyda Lennon M.D. [address] [place] [phone] 12/20/2023 9:20 AM CDT Lab Department of Infusion Therapy in [place], [place] [address] [place] [phone] Loyda Lennon M.D. [address] [place] [phone] 12/20/2023 10:30 AM CDT Infusion Department of Oncology in [place], [place] [address] [place] [phone] Loyda Lennon M.D. [address] [place] [phone] 12/25/2023 10:30 AM CDT Appointment Division of Gastroenterology in [place], [place] [address] [place] [phone] Na Hernandez M.D., Ph.D. [address] [place] [phone] 12/27/2023 10:15 AM CDT Lab Department of Oncology in [place], [place] [address] [place] [phone] Loyda Lennon M.D. [address] [place] [phone] 12/27/2023 10:30 AM CDT Lab Department of Laboratory Medicine and Pathology, [facility] in [address] [phone] Loyda Lennon M.D. [address] [place] [phone] 12/27/2023 11:45 AM CDT Infusion Department of Oncology in [address] [phone] Loyda Lennon M.D. [address] [place] [phone] 01/03/2024 1:00 PM CDT Clinical Communication Virtual Review in [place], [place] [address] [place] [address] 01/10/2024 8:00 AM CDT Lab Department of Infusion Therapy in [address] [address] Loyda Lennon M.D. [address] [place] [phone] 01/10/2024 8:20 AM CDT Lab Department of Laboratory Medicine and Pathology, [facility] in [place], [place] [address] [place] [address] [place] [address] Loyda Lennon M.D. [address] [place] [phone] 01/10/2024 10:30 AM CDT Office Visit Department of Oncology in [place], [place] [address] [place] [address] Na Hernandez M.D., Ph.D. [address] [place] [phone] 01/10/2024 11:45 AM CDT Infusion Department of Oncology in [place], [place] [address] [place] [address] Loyda Lennon M.D. [address] [place] [phone] 01/17/2024 8:45 AM CDT Lab Department of Oncology in [place], [place] [address] [place] [address] Loyda Lennon M.D. [address] [place] [phone] 01/17/2024 10:00 AM CDT Infusion Department of Oncology in [place], [place] [address] [place] [address] Loyda Lennon M.D. [address] [place] [phone] 01/24/2024 8:00 AM CDT Lab Department of Laboratory Medicine and Pathology, [facility], in [place], [place] [address] [place] [address] Loyda Lennon M.D. [address] [place] [phone] 01/24/2024 8:15 AM CDT Lab Department of Oncology in [place], [place] [address] [place] [address] Loyda Lennon M.D. [address] [place] [address] 01/24/2024 9:15 AM CDT Infusion Department of Oncology in [place], [place] [address] [place] [address] Loyda Lennon M.D. [address] [place] [address] Scheduled Procedures Name Priority Associated Diagnoses Date/Ti me HEPATECTOMY RESECTION LIVER Cholangiocarcinoma (HCC) ULTRASOUND LIVER Cholangiocarcinoma (HCC) RECONSTRUCTION PORTAL VEIN Cholangiocarcinoma (HCC) documented as of this encounter Visit Diagnoses Diagnosis Cholangiocarcinoma (HCC)- Primary Slab Off Mill Tender Current Drug Therapy, Chemotherapy Peritoneal Carcinomatosis (HCC) Neutropenia Chemotherapy Induced (HCC) documented in this encounter Additional Health Concerns Infection Onset Date Last Indicated Resolved Time Protective Environment 11/07/2022 11/07/2022 documented as of this encounter Care Teams Pipe Caulker Relationship Specialty Start Date End Date Mark Colorado M.D. [address] [place] [phone] PCP - General Family Medicine 11/09/22 documented as of this encounter
--- OUTSIDE RECORDS SUMMARY | 2023-11-05 22:10 | XMS_ITS | Encounter Summary ---
Author Organization [facility] Address [address] [place] [address] Care Team Providers Care [employer] Distributor Name Role Phone Mark Colorado M.D. Primary Care Provider [phone] Reason for Referral * Cardiovascular-Diagnostic (Routine) - Closed Specialty Diagnoses / Procedures Referred By Contreema t Referred To Contact Diagnoses Cholangiocarcinoma (HCC) Procedures Echo Transthoracic (TTE) Na Hernandez M.D., Ph.D. [address] [place] [address] [facility] Referral ID Status Reason Start Date Expiration Date Visits Re quested Visits Authorized [id number] Closed 08/15/2023 08/14/2024 1 1 Reason for Visit * Cardiovascular-Diagnostic (Routine) - Closed Specialty Diagnoses / Procedures Referred By Chloe hinkle Referred To Contact Diagnoses Cholangiocarcinoma (HCC) Procedures Echo Transthoracic (TTE) Na Hernandez M.D., Ph.D. [address] [place] [address] [facility] Referral ID Status Reason Start Date Expiration Date Visits Re quested Visits Authorized [id number] Closed 08/15/2023 08/14/2024 1 1 Encounter Details Date Type Department Care Team (Latest Contact Info) Description 09/10/2023 11:11 AM CDT - 09/10/2023 11:59 PM CDT Hospital Encounter Department of Cardiovascular Diseases in [place], [place] [address] [place] [phone] Na Hernandez M.D., Ph.D. [address] [place] [phone] Cholangiocarcinoma (HCC) Discharge Disposition: Home or Self [...] your living situation today? I have a [facility] place to live 09/10/2022 Sex and [...] Take 200 mg by mouth daily. glucosamine wwa-fkqqobidwg-pez 500-200-150 mg tablet Take 1 tablet by [...] 02/14/2023 prochlorperazine (COMPAZINE) 10 mg tabletIndications:Ch olangiocarcinoma (HCC),Residential Current Drug Therapy, Chemotherapy Take 1 tablet [...] Pain. 42 tablet 09/02/2023 09/20/2023 lisinopriL (PRINIVIL,ZESTRIL) 10 mg tablet Take 1 tablet (10 mg total) by mouth daily. 09/11/2023 09/17/2023 lisinopriL (PRINIVIL,ZESTRIL) 5 mg tablet Take 1 tablet (5 mg total) by mouth daily. 30 tablet 3 08/05/2023 09/11/2023 ondansetron (ZOFRAN) 8 mg tabletIndications:Ch olangiocarcinoma (HCC),Residential Current Drug Therapy, Chemotherapy Take 1 tablet (8 mg total) by mouth every 8 (eight) hours as needed for nausea or vomiting. 30 tablet 3 11/02/2022 10/02/2023 documented as of this encounter Plan of Treatment Upcoming Encounters Date Type Department Care Team (Latest Contact Info) Description 11/07/2023 3:15 PM CDT Clinical Communication Virtual Review in [address] [phone] 11/15/2023 6:40 AM CDT Lab Department of Laboratory Medicine and Pathology, [facility] in [address] [phone] Loyda Lennon M.D. [address] [place] [phone] 11/15/2023 8:20 AM CDT Office Visit Department of Oncology in [address] [phone] Manjit Velasquez APRN, C.N.P., D.N.P. [address] [place] [phone] 11/15/2023 9:30 AM CDT Comprehensive Visit Department of Palliative Care in [address] [address] Patty Gomez APRN, C.N.P., M.S.N. [address] [place] [phone] 11/15/2023 2:15 PM CDT Infusion Department of Oncology in [place], [place] [address] [place] [phone] Loyda Lennon M.D. [address] [place] [phone] 11/22/2023 7:30 AM CDT Lab Department of Oncology in [place], [place] [address] [place] [phone] Loyda Lennon M.D. [address] [place] [phone] 11/22/2023 8:45 AM CDT Infusion Department of Oncology in [place], [place] [address] [place] [phone] Loyda Lennon M.D. [address] [place] [phone] 11/28/2023 3:30 PM CDT Clinical Communication Virtual Review in [place], [place] 200 [place] [address] 11/29/2023 9:00 AM CDT Procedure visit Department of Urology in [place], [place] [address] [place] [phone] Mark Colorado M.D. [address] [place] [address] 11/29/2023 11:20 AM CDT Lab Department of Laboratory Medicine and Pathology, [facility], in [place], [place] [address] [place] [phone] Loyda eLnnon M.D. [address] [place] [phone] 11/29/2023 11:30 AM CDT Lab Department of Oncology in [place], [place] [address] [place] [phone] Loyda Lennon M.D. [address] [place] [phone] 11/29/2023 1:00 PM CDT Infusion Department of Oncology in [place], [place] [address] [place] [phone] Loyda Lennon M.D. [address] [place] [phone] 12/03/2023 1:45 PM CDT Comprehensive Visit Department of Urology in [address] [address] Mona Egan P.A.-C. [address] [place] [phone] 12/05/2023 1:20 PM CDT Comprehensive Visit Department of Oncology in [place], [place] [address] [place] [phone] Letty Kate M.D. [address] [place] [phone] 12/10/2023 3:00 PM CDT Clinical Communication Virtual Review in [place], [place] [address] [place] [address] 12/10/2023 3:30 PM CDT Procedure visit Department of Urology in [address] [address] Mark Colorado M.D. [address] [place] [address] 12/12/2023 3:45 PM CDT Appointment Department of Radiology, [facility], in [place], [place] [address] [place] [address] Na Heranndez M.D., Ph.D. [address] [place] [phone] 12/13/2023 6:00 AM CDT Lab Department of Laboratory Medicine and Pathology, [facility] in [place], [place] [address] [place] [phone] Loyda Lennon M.D. [address] [place] [phone] 12/13/2023 6:20 AM CDT Lab Department of Infusion Therapy in [place], [place] [address] [place] [phone] Loyda Lennon M.D. [address] [place] [phone] 12/13/2023 11:10 AM CDT Office Visit Department of Oncology in [place], [place] [address] [place] [phone] Na Hernandez M.D., Ph.D. [address] [place] [phone] 12/13/2023 1:00 PM CDT Infusion Department of Oncology in [place], [place] [address] [place] [phone] Loyda Lennon M.D. [address] [place] [phone] 12/20/2023 9:20 AM CDT Lab Department of Infusion Therapy in [place], [place] [address] [place] [phone] Loyda Lennon M.D. [address] [place] [phone] 12/20/2023 10:30 AM CDT Infusion Department of Oncology in [place], [place] [address] [place] [phone] Loyda Lennon M.D. [address] [place] [phone] 12/25/2023 10:30 AM CDT Appointment Division of Gastroenterology in [place], [place] [address] [place] [phone] Na Hernandez M.D., Ph.D. [address] [place] [phone] 12/27/2023 10:15 AM CDT Lab Department of Oncology in [place], [place] [address] [place] [phone] Loyda Lennon M.D. [address] [place] [phone] 12/27/2023 10:30 AM CDT Lab Department of Laboratory Medicine and Pathology, [facility] in [address] [address] Loyda Lennon M.D. [address] [place] [phone] 12/27/2023 11:45 AM CDT Infusion Department of Oncology in [place], [place] [address] [place] [phone] Loyda Lennon M.D. [address] [place] [phone] 01/03/2024 1:00 PM CDT Clinical Communication Virtual Review in [place], [place] [address] [place] [address] 01/10/2024 8:00 AM CDT Lab Department of Infusion Therapy in [place], [place] [address] [place] [phone] Loyda Lennon M.D. [address] [place] [phone] 01/10/2024 8:20 AM CDT Lab Department of Laboratory Medicine and Pathology, [facility], in [place], [place] [address] [place] [phone] Loyda Lennon M.D. [address] [place] [phone] 01/10/2024 10:30 AM CDT Office Visit Department of Oncology in [address] [address] Na Hernandez M.D., Ph.D. [address] [place] [phone] 01/10/2024 11:45 AM CDT Infusion Department of Oncology in [place], [place] [address] [place] [phone] Loyda Lennon M.D. [address] [place] [address] 01/17/2024 8:45 AM CDT Lab Department of Oncology in [place], [place] [address] [place] [phone] Loyda Lennon M.D. [address] [place] [phone] 01/17/2024 10:00 AM CDT Infusion Department of Oncology in [address] [address] Loyda Lennon M.D. [address] [place] [phone] 01/24/2024 8:00 AM CDT Lab Department of Laboratory Medicine and Pathology, [facility], in [place], [place] [address] [place] [address] Loyda Lennon M.D. [address] [place] [phone] 01/24/2024 8:15 AM CDT Lab Department of Oncology in [place], [place] [address] [place] [phone] Loyda Lennon M.D. [address] [place] [phone] 01/24/2024 9:15 AM CDT Infusion Department of Oncology in [place], [place] [address] [place] [address] Loyda Lennon M.D. [address] [place] [phone] Scheduled Procedures Name Priority Associated Diagnoses Date/Ti me HEPATECTOMY RESECTION LIVER Cholangiocarcinoma (HCC) ULTRASOUND LIVER Cholangiocarcinoma (HCC) RECONSTRUCTION PORTAL VEIN Cholangiocarcinoma (HCC) documented as of this encounter Procedures Procedure Name Priority Date/Time Associated Diagnosis Comments (TTE) 2D ECHO DOPPLER COLOR Routine 09/10/2023 12:35 PM CDT Cholangiocarcinoma (HCC) documented in this encounter Results * (TTE) 2D ECHO DOPPLER COLOR (09/10/2023 [...] mitral valve regurgitation (two eccentric jets). Possibly hmsf-xy-cclvxtvk. 5. No ??pericardial effusion. 6. Compared to [...] Mild mitral valve regurgitation (two eccentric jets). Ywijkfqgrequ-vs-zdspnugb. 5. No pericardial effusion. 6. Compared to [...] Hernandez M.D., Ph.D. CV ECHO PRO CEDURES documented in this encounter Visit Diagnoses Diagnosis Cholangiocarcinoma (HCC) documented in this encounter Additional Health Concerns Infection Onset Date Last Indicated Resolved Time Protective Environment 11/07/2022 11/07/2022 documented as of this encounter Care Teams [employer] Relationship Specialty Start Date End Date Mark Colorado M.D. [address] [place] [address] PCP - General Family Medicine 11/09/22 documented as of this encounter
--- OUTSIDE RECORDS SUMMARY | 2023-11-05 22:10 | XMS_ITS | Encounter Summary ---
Author Organization [facility] Address [address] [place] [address] Care Team Providers Care Kennel Helper Name Role Phone Mark Colorado M.D. Primary Care Provider [phone] Encounter Details Date Type Department Care Team (Late st Contact Info) Description 08/30/2023 Documentation Department of Oncology in [place], [place] [address] [place] [phone] Loyda Lennon M.D. [address] [place] [phone] Social History Tobacco Use Types Packs/Day Years [...] your living situation today? I have a [facility] place to live 09/10/2022 Sex and Gender Information Value Date Recorded Sex Assigned at Male 09/10/2022 12:02 PM CDT Gender Identity Male 09/10/2022 12:02 PM CDT Sexual Orientation Straight 09/10/2022 12 :02 PM CDT documented as of this encounter Progress Notes * Loyda Lennon M.D. - 08/30/2023 8:41 AM CDT WENDY notification to patient Patient is involved in a clinical trial CTX 009 and is being alerted for an WENDY of stroke in another patient requiring hospitalization. I have discussed this WENDY with Mr. Sepulveda and informed him that this study is on temporary hold for any new enrollment while informed consent is being updated. Mr. Sepulveda may continue with trial treatment as is and we will monitor his safety closely. All questions answered and patient was grateful for the information. Loyda Lennon MD [employer] Worker [address] [address] Phone: documented in this encounter Plan of Treatment Upcoming Encounters Date Type Department Care Team (Latest Contact Info) Description 11/07/2023 3:15 PM CDT Clinical Communication Virtual Review in [address] [phone] 11/15/2023 6:40 AM CDT Lab Department of Laboratory Medicine and Pathology, [facility], in [address] [address] Loyda Lennon M.D. [address] [place] [phone] 11/15/2023 8:20 AM CDT Office Visit Department of Oncology in [address] [address] Manjit Velasquez, KAYLEE, C.N.P., D.N.P. [address] [place] [phone] 11/15/2023 9:30 AM CDT Comprehensive Visit Department of Palliative Care in [place], [place] [address] [place] [phone] Patty Gomez APRN, C.N.P., M.S.N. [address] [place] [phone] 11/15/2023 2:15 PM CDT Infusion Department of Oncology in [place], [place] [address] [place] [phone] Loyda Lennon M.D. [address] [place] [phone] 11/22/2023 7:30 AM CDT Lab Department of Oncology in [place], [place] [address] [place] [phone] Loyda Lennon M.D. [address] [place] [phone] 11/22/2023 8:45 AM CDT Infusion Department of Oncology in [address] [address] Loyda Lennon M.D. [address] [place] [phone] 11/28/2023 3:30 PM CDT Clinical Communication Virtual Review in [place], [place] 200 [place] [address] 11/29/2023 9:00 AM CDT Procedure visit Department of Urology in [place], [place] [address] [place] [phone] Mark Colorado M.D. [facility] [place] [address] 11/29/2023 11:20 AM CDT Lab Department of Laboratory Medicine and Pathology, [facility], in [place], [place] [address] [place] [phone] Loyda Lennon M.D. [address] [place] [phone] 11/29/2023 11:30 AM CDT Lab Department of Oncology in [place], [place] [address] [place] [phone] Loyda Lennon M.D. [address] [place] [phone] 11/29/2023 1:00 PM CDT Infusion Department of Oncology in [place], [place] [address] [place] [phone] Loyda Lennon M.D. [address] [place] [phone] 12/03/2023 1:45 PM CDT Comprehensive Visit Department of Urology in [address] [address] Mona Egan P.A.-C. [address] [place] [phone] 12/05/2023 1:20 PM CDT Comprehensive Visit Department of Oncology in [place], [place] [address] [place] [phone] Letty Kate M.D. [address] [place] [phone] 12/10/2023 3:00 PM CDT Clinical Communication Virtual Review in [place], [place] 200 [place] [address] 12/10/2023 3:30 PM CDT Procedure visit Department of Urology in [place], [place] [address] [place] [phone] Mark Colorado M.D. [facility] [place] [address] 12/12/2023 3:45 PM CDT Appointment Department of Radiology, [facility], in [place], [place] [address] [place] [phone] Na Hernandez M.D., Ph.D. [address] [place] [phone] 12/13/2023 6:00 AM CDT Lab Department of Laboratory Medicine and Pathology, [facility] in [place], [place] [address] [place] [phone] Loyda Lennon M.D. [address] [place] [phone] 12/13/2023 6:20 AM CDT Lab Department of Infusion Therapy in [place], [place] [address] [place] [phone] Loyda Lennon M.D. [address] [place] [phone] 12/13/2023 11:10 AM CDT Office Visit Department of Oncology in [place], [place] [address] [place] [phone] Na Hernandez M.D., Ph.D. [address] [place] [phone] 12/13/2023 1:00 PM CDT Infusion Department of Oncology in [place], [place] [address] [place] [phone] Loyda Lennon M.D. [address] [place] [phone] 12/20/2023 9:20 AM CDT Lab Department of Infusion Therapy in [place], [place] [address] [place] [phone] Loyda Lennon M.D. [address] [place] [phone] 12/20/2023 10:30 AM CDT Infusion Department of Oncology in [place], [place] [address] [place] [phone] Loyda Lennon M.D. [address] [place] [phone] 12/25/2023 10:30 AM CDT Appointment Division of Gastroenterology in [address] [address] Na Hernandez M.D., Ph.D. [address] [place] [phone] 12/27/2023 10:15 AM CDT Lab Department of Oncology in [place], [place] [address] [place] [phone] Loyda Lennon M.D. [address] [place] [phone] 12/27/2023 10:30 AM CDT Lab Department of Laboratory Medicine and Pathology, [facility], in [place], [place] [address] [place] [phone] Loyda Lennon M.D. [address] [place] [phone] 12/27/2023 11:45 AM CDT Infusion Department of Oncology in [address] [address] Loyda Lennon M.D. [address] [place] [phone] 01/03/2024 1:00 PM CDT Clinical Communication Virtual Review in [place], [place] 200 [place] [address] 01/10/2024 8:00 AM CDT Lab Department of Infusion Therapy in [place], [place] [address] [place] [phone] Loyda Lennon M.D. [address] [place] [phone] 01/10/2024 8:20 AM CDT Lab Department of Laboratory Medicine and Pathology, [facility] in [place], [place] [address] [place] [phone] Loyda Lennon M.D. [address] [place] [phone] 01/10/2024 10:30 AM CDT Office Visit Department of Oncology in [address] [address] Na Hernandez M.D., Ph.D. [address] [place] [phone] 01/10/2024 11:45 AM CDT Infusion Department of Oncology in [place], [place] [address] [place] [phone] Loyda Lennon M.D. [address] [place] [phone] 01/17/2024 8:45 AM CDT Lab Department of Oncology in [address] [address] Loyda Lennon M.D. [address] [place] [phone] 01/17/2024 10:00 AM CDT Infusion Department of Oncology in [place], [place] [address] [place] [address] Loyda Lennon M.D. [address] [place] [phone] 01/24/2024 8:00 AM CDT Lab Department of Laboratory Medicine and Pathology, [facility] in [place], [place] [address] [place] [address] Loyda Lennon M.D. [address] [place] [phone] 01/24/2024 8:15 AM CDT Lab Department of Oncology in [place], [place] [address] [place] [address] Loyda Lennon M.D. [address] [place] [phone] 01/24/2024 9:15 AM CDT Infusion Department of Oncology in [place], [place] [address] [place] [phone] Loyda Lennon M.D. [address] [place] [phone] Scheduled Procedures Name Priority Associated Diagnoses Date/Ti nv HEPATECTOMY RESECTION LIVER Cholangiocarcinoma (HCC) ULTRASOUND LIVER Cholangiocarcinoma (HCC) RECONSTRUCTION PORTAL VEIN Cholangiocarcinoma (HCC) documented as of this encounter Visit Diagnoses Not on filedocumented in this encounter Additional Health Concerns Infection Onset Date Last Indicated Resolved Time Protective Environment 11/07/2022 11/07/2022 documented as of this encounter Care Teams Kennel Helper Relationship Specialty Start Date End Date Mark Colorado M.D. [address] [place] [address] PCP - General Family Medicine 11/09/22 documented as of this encounter
--- OUTSIDE RECORDS SUMMARY | 2023-11-05 22:10 | XMS_ITS | Encounter Summary ---
Author Organization [facility] Address [address] [place] [address] Care Team Providers Care Bicycle Ii Assembler Name Role Phone Mark Colorado M.D. Primary Care Provider [phone] Encounter Details Date Type Department Care Team (Late st Contact Info) Description 08/30/2023 Orders Only Department of Oncology in [place], [place] [address] [place] [address] Karen Burger Social History Tobacco Use Types [...] PM CDT Clinical Communication Virtual Review in [place], [place] 200 [place] [address] 11/15/2023 6:40 AM CDT Lab Department of Laboratory Medicine and Pathology, [facility] in [address] [phone] Loyda Lennon M.D. [address] [place] [phone] 11/15/2023 8:20 AM CDT Office Visit Department of Oncology in [address] [address] Manjit Velasquez APRN, C.N.P., D.N.P. [address] [place] [phone] 11/15/2023 9:30 AM CDT Comprehensive Visit Department of Palliative Care in [address] [address] Patty Gomez APRN, C.N.P., M.S.N. [address] [place] [phone] 11/15/2023 2:15 PM CDT Infusion Department of Oncology in [address] [address] Loyda Lennon M.D. [address] [place] [address] 11/22/2023 7:30 AM CDT Lab Department of Oncology in [place], [place] [address] [place] [phone] Loyda Lennon M.D. [address] [place] [phone] 11/22/2023 8:45 AM CDT Infusion Department of Oncology in [place], [place] [address] [place] [phone] Loyda Lennon M.D. [address] [place] [phone] 11/28/2023 3:30 PM CDT Clinical Communication Virtual Review in [place], [place] 200 [place] [address] 11/29/2023 9:00 AM CDT Procedure visit Department of Urology in [place], [place] [address] [place] [address] Mark Colorado M.D. [address] [place] [address] 11/29/2023 11:20 AM CDT Lab Department of Laboratory Medicine and Pathology, [facility], in [address] [address] Loyda Lennon M.D. [address] [place] [phone] 11/29/2023 11:30 AM CDT Lab Department of Oncology in [place], [place] [address] [place] [address] Loyda Lennon M.D. [address] [place] [phone] 11/29/2023 1:00 PM CDT Infusion Department of Oncology in [place], [place] [address] [place] [phone] Loyda Lennon M.D. [address] [place] [phone] 12/03/2023 1:45 PM CDT Comprehensive Visit Department of Urology in [place], [place] [address] [place] [phone] Mona Egan P.A.-C. [address] [place] [phone] 12/05/2023 1:20 PM CDT Comprehensive Visit Department of Oncology in [place], [place] [address] [place] [phone] Letty Kate M.D. [address] [place] [phone] 12/10/2023 3:00 PM CDT Clinical Communication Virtual Review in [place], [place] 200 [place] [address] 12/10/2023 3:30 PM CDT Procedure visit Department of Urology in [place], [place] [address] [place] [address] Mark Colorado M.D. [facility] [place] [address] 12/12/2023 3:45 PM CDT Appointment Department of Radiology, [facility], in [place], [place] [address] [place] [address] Na Hernandez M.D., Ph.D. [address] [place] [phone] 12/13/2023 6:00 AM CDT Lab Department of Laboratory Medicine and Pathology, [facility], in [place], [place] [address] [place] [address] Loyda Lennon M.D. [address] [place] [phone] 12/13/2023 6:20 AM CDT Lab Department of Infusion Therapy in [place], [place] [address] [place] [address] Loyda Lennon M.D. [address] [place] [phone] 12/13/2023 11:10 AM CDT Office Visit Department of Oncology in [place], [place] [address] [place] [phone] Na Hernandez M.D., Ph.D. [address] [place] [phone] 12/13/2023 1:00 PM CDT Infusion Department of Oncology in [place], [place] [address] [place] [address] Loyda Lennon M.D. [address] [place] [phone] 12/20/2023 9:20 AM CDT Lab Department of Infusion Therapy in [address] [address] Loyda Lennon M.D. [address] [place] [phone] 12/20/2023 10:30 AM CDT Infusion Department of Oncology in [address] [address] Loyda Lennon M.D. [address] [place] [phone] 12/25/2023 10:30 AM CDT Appointment Division of Gastroenterology in [address] [address] Na Hernandez M.D., Ph.D. [address] [place] [phone] 12/27/2023 10:15 AM CDT Lab Department of Oncology in [place], [place] [address] [place] [phone] Loyda Lennon M.D. [address] [place] [phone] 12/27/2023 10:30 AM CDT Lab Department of Laboratory Medicine and Pathology, [facility] in [place], [place] [address] [place] [address] Loyda Lennon M.D. [address] [place] [phone] 12/27/2023 11:45 AM CDT Infusion Department of Oncology in [place], [place] [address] [place] [address] Loyda Lennon M.D. [address] [place] [phone] 01/03/2024 1:00 PM CDT Clinical Communication Virtual Review in [address] [address] 01/10/2024 8:00 AM CDT Lab Department of Infusion Therapy in [address] [address] Loyda Lennon M.D. [address] [place] [phone] 01/10/2024 8:20 AM CDT Lab Department of Laboratory Medicine and Pathology, [facility] in [place], [place] [address] [place] [address] Loyda Lennon M.D. [address] [place] [address] 01/10/2024 10:30 AM CDT Office Visit Department of Oncology in [place], [place] [address] [place] [address] Na Hernandez M.D., Ph.D. [address] [place] [phone] 01/10/2024 11:45 AM CDT Infusion Department of Oncology in [place], [place] [address] [place] [phone] Loyda Lennon M.D. [address] [place] [phone] 01/17/2024 8:45 AM CDT Lab Department of Oncology in [place], [place] [address] [place] [address] Loyda Lennon M.D. [address] [place] [phone] 01/17/2024 10:00 AM CDT Infusion Department of Oncology in [address] [address] Loyda Lennon M.D. [address] [place] [phone] 01/24/2024 8:00 AM CDT Lab Department of Laboratory Medicine and Pathology, [facility], in [place], [place] [address] [place] [address] Loyda Lennon M.D. [address] [place] [phone] 01/24/2024 8:15 AM CDT Lab Department of Oncology in [place], [place] [address] [place] [address] Loyda Lennon M.D. [address] [place] [address] 01/24/2024 9:15 AM CDT Infusion Department of Oncology in [place], [place] [address] [place] [address] Loyda Lennon M.D. [address] [place] [address] Scheduled Procedures Name Priority Associated Diagnoses Date/Ti me HEPATECTOMY RESECTION LIVER Cholangiocarcinoma (HCC) ULTRASOUND LIVER Cholangiocarcinoma (HCC) RECONSTRUCTION PORTAL VEIN Cholangiocarcinoma (HCC) documented as of this encounter Visit Diagnoses Not on filedocumented in this encounter Additional Health Concerns Infection Onset Date Last Indicated Resolved Time Protective Environment 11/07/2022 11/07/2022 documented as of this encounter Care Teams Bicycle Ii Assembler Relationship Specialty Start Date End Date Mark Colorado M.D. [address] [place] [address] PCP - General Family Medicine 11/09/22 documented as of this encounter
--- OUTSIDE RECORDS SUMMARY | 2023-11-05 22:10 | XMS_ITS | Encounter Summary ---
Author Organization [facility] Address [address] [place] [address] Care Team Providers Care Loading Unit Operator Seating Name Role Phone Mark Colorado M.D. Primary Care Provider [phone] Reason for Visit * Reason Comments Med Refill Hydromorphone Encounter Details Date Type Department Care Team (Late st Contact Info) Description 09/02/2023 Refill Department of Oncology in [place], [place] [address] [place] [phone] Lee Woods M.D., M.P.H. [address] [place] [phone] Med Refill (Hydromorphone ) Social History Tobacco Use Types Packs/Day [...] your living situation today? I have a [employer] [facility] to live 09/10/2022 Sex and Gender Information Value Date Recorded Sex Assigned at Male 09/10/2022 12:02 PM CDT Gender Identity Male 09/10/2022 12:02 PM CDT Sexual Orientation Straight 09/10/2022 12 :02 PM CDT documented as of this encounter Plan of Treatment Upcoming Encounters Date Type Department Care Team (Latest Contact Info) Description 11/07/2023 3:15 PM CDT Clinical Communication Virtual Review in [place], [place] 200 [place] [address] 11/15/2023 6:40 AM CDT Lab Department of Laboratory Medicine and Pathology, [facility], in [address] [phone] Loyda Lennon M.D. [address] [place] [phone] 11/15/2023 8:20 AM CDT Office Visit Department of Oncology in [address] [address] Manjit Velasquez APRN, C.N.P., D.N.P. [address] [place] [phone] 11/15/2023 9:30 AM CDT Comprehensive Visit Department of Palliative Care in [address] [address] Patty Gomez APRN, C.N.P., M.S.N. [address] [place] [phone] 11/15/2023 2:15 PM CDT Infusion Department of Oncology in [address] [address] Loyda Lennon M.D. [address] [place] [phone] 11/22/2023 7:30 AM CDT Lab Department of Oncology in [place], [place] [address] [place] [phone] Loyda Lennon M.D. [address] [place] [phone] 11/22/2023 8:45 AM CDT Infusion Department of Oncology in [place], [place] [address] [place] [phone] Loyda Lennon M.D. [address] [place] [phone] 11/28/2023 3:30 PM CDT Clinical Communication Virtual Review in [place], [place] 200 [place] [address] 11/29/2023 9:00 AM CDT Procedure visit Department of Urology in [place], [place] [address] [place] [phone] Mark Colorado M.D. [address] [place] [address] [place] [address] 11/29/2023 11:20 AM CDT Lab Department of Laboratory Medicine and Pathology, [facility], in [place], [place] [address] [place] [address] Loyda Lennon M.D. [address] [place] [phone] 11/29/2023 11:30 AM CDT Lab Department of Oncology in [place], [place] [address] [place] [phone] Loyda Lennon M.D. [address] [place] [phone] 11/29/2023 1:00 PM CDT Infusion Department of Oncology in [place], [place] [address] [place] [phone] Loyda Lennon M.D. [address] [place] [address] 12/03/2023 1:45 PM CDT Comprehensive Visit Department of Urology in [place], [place] [address] [place] [phone] Mona Egan P.A.-C. [address] [place] [phone] 12/05/2023 1:20 PM CDT Comprehensive Visit Department of Oncology in [place], [place] [address] [place] [phone] Letty Kate M.D. [address] [place] [phone] 12/10/2023 3:00 PM CDT Clinical Communication Virtual Review in [place], [place] 200 [place] [address] 12/10/2023 3:30 PM CDT Procedure visit Department of Urology in [place], [place] [address] [place] [phone] Mark Colorado M.D. [address] [place] [address] [place] [address] 12/12/2023 3:45 PM CDT Appointment Department of Radiology, [facility], in [place], [place] [address] [place] [phone] Na Hernandez M.D., Ph.D. [address] [place] [phone] 12/13/2023 6:00 AM CDT Lab Department of Laboratory Medicine and Pathology, [facility], in [place], [place] [address] [place] [phone] Loyda Lennon M.D. [address] [place] [address] 12/13/2023 6:20 AM CDT Lab Department of Infusion Therapy in [place], [place] [address] [place] [phone] Loyda Lennon M.D. [address] [place] [address] 12/13/2023 11:10 AM CDT Office Visit Department of Oncology in [address] [address] Na Hernandez M.D., Ph.D. [address] [place] [address] 12/13/2023 1:00 PM CDT Infusion Department of Oncology in [address] [address] Loyda Lennon M.D. [address] [place] [address] 12/20/2023 9:20 AM CDT Lab Department of Infusion Therapy in [place], [place] [address] [place] [phone] Loyda Lennon M.D. [address] [place] [address] 12/20/2023 10:30 AM CDT Infusion Department of Oncology in [address] [address] Loyda Lennon M.D. [address] [place] [address] 12/25/2023 10:30 AM CDT Appointment Division of Gastroenterology in [place], [place] [address] [place] [phone] Na Hernandez M.D., Ph.D. [address] [place] [phone] 12/27/2023 10:15 AM CDT Lab Department of Oncology in [place], [place] [address] [place] [phone] Loyda Lennon M.D. [address] [place] [phone] 12/27/2023 10:30 AM CDT Lab Department of Laboratory Medicine and Pathology, [facility] in [place], [place] [address] [place] [phone] Loyda Lennon M.D. [address] [place] [phone] 12/27/2023 11:45 AM CDT Infusion Department of Oncology in [address] [address] Loyda Lennon M.D. [address] [place] [phone] 01/03/2024 1:00 PM CDT Clinical Communication Virtual Review in [place], [place] 200 [place] [address] 01/10/2024 8:00 AM CDT Lab Department of Infusion Therapy in [address] [address] Loyda Lennon M.D. [address] [place] [phone] 01/10/2024 8:20 AM CDT Lab Department of Laboratory Medicine and Pathology, [facility] in [place], [place] [address] [place] [phone] Loyda Lennon M.D. [address] [place] [phone] 01/10/2024 10:30 AM CDT Office Visit Department of Oncology in [place], [place] [address] [place] [address] Na Hernandez M.D., Ph.D. [address] [place] [phone] 01/10/2024 11:45 AM CDT Infusion Department of Oncology in [place], [place] [address] [place] [address] Loyda Lennon M.D. [address] [place] [address] 01/17/2024 8:45 AM CDT Lab Department of Oncology in [place], [place] [address] [place] [address] Loyda Lennon M.D. [address] [place] [address] 01/17/2024 10:00 AM CDT Infusion Department of Oncology in [place], [place] [address] [place] [phone] Loyda Lennon M.D. [address] [place] [address] 01/24/2024 8:00 AM CDT Lab Department of Laboratory Medicine and Pathology, [facility], in [place], [place] [address] [place] [address] Loyda Lennon M.D. [address] [place] [address] 01/24/2024 8:15 AM CDT Lab Department of Oncology in [place], [place] [address] [place] [address] Loyda Lennon M.D. [address] [place] [address] 01/24/2024 9:15 AM CDT Infusion Department of Oncology in [place], [place] [address] [place] [address] Loyda Lennon M.D. [address] [place] [phone] Scheduled Procedures Name Priority Associated Diagnoses Date/Ti me HEPATECTOMY RESECTION LIVER Cholangiocarcinoma (HCC) ULTRASOUND LIVER Cholangiocarcinoma (HCC) RECONSTRUCTION PORTAL VEIN Cholangiocarcinoma (HCC) documented as of this encounter Visit Diagnoses Not on filedocumented in this encounter Additional Health Concerns Infection Onset Date Last Indicated Resolved Time Protective Environment 11/07/2022 11/07/2022 documented as of this encounter Care Teams Loading Unit Operator Seating Relationship Specialty Start Date End Date Mark Colorado M.D. [address] [place] [address] PCP - General Family Medicine 11/09/22 documented as of this encounter
--- OUTSIDE RECORDS SUMMARY | 2023-11-05 22:11 | XMS_ITS | Encounter Summary ---
Author Organization [facility] Address [address] [place] [address] Care Team Providers Care Adjunct Writing Instructor Name Role Phone Mark Colorado M.D. Primary Care Provider Encounter Details Date Type Department Care Team (Late st Contact Info) Description 08/23/2023 Orders Only Department of Oncology in [place], [place] [address] [place] [address] Karen Burger Social History Tobacco Use Types [...] PM CDT Clinical Communication Virtual Review in [place], [place] [address] [place] [address] 11/15/2023 6:40 AM CDT Lab Department of Laboratory Medicine and Pathology, [facility] in [address] [address] Loyda Lennon M.D. [address] [place] [phone] 11/15/2023 8:20 AM CDT Office Visit Department of Oncology in [address] [address] Manjit Velasquez APRN, C.N.P., D.N.P. [address] [place] [phone] 11/15/2023 9:30 AM CDT Comprehensive Visit Department of Palliative Care in [address] [address] Patty Gomez APRN, C.N.P., M.S.N. [address] [place] [phone] 11/15/2023 2:15 PM CDT Infusion Department of Oncology in [address] [address] Loyda Lennon M.D. [address] [place] [phone] 11/22/2023 7:30 AM CDT Lab Department of Oncology in [place], [place] [address] [place] [phone] Loyda Lennon M.D. [address] [place] [phone] 11/22/2023 8:45 AM CDT Infusion Department of Oncology in [place], [place] [address] [place] [phone] Lodya Lennon M.D. [address] [place] [phone] 11/28/2023 3:30 PM CDT Clinical Communication Virtual Review in [place], [place] [address] [place] [address] 11/29/2023 9:00 AM CDT Procedure visit Department of Urology in [place], [place] [address] [place] [phone] Mark Colorado M.D. [address] [place] [address] 11/29/2023 11:20 AM CDT Lab Department of Laboratory Medicine and Pathology, [facility], in [address] [address] Loyda Lennon M.D. [address] [place] [phone] 11/29/2023 11:30 AM CDT Lab Department of Oncology in [place], [place] [address] [place] [phone] Loyda Lennon M.D. [address] [place] [phone] 11/29/2023 1:00 PM CDT Infusion Department of Oncology in [place], [place] [address] [place] [phone] Loyda Lennon M.D. [address] [place] [phone] 12/03/2023 1:45 PM CDT Comprehensive Visit Department of Urology in [place], [place] [address] [place] [phone] Mona Egan P.A.-C. [address] [place] [phone] 12/05/2023 1:20 PM CDT Comprehensive Visit Department of Oncology in [place], [place] [address] [place] [phone] Letty Kate M.D. [address] [place] [phone] 12/10/2023 3:00 PM CDT Clinical Communication Virtual Review in [place], [place] [address] [place] [address] 12/10/2023 3:30 PM CDT Procedure visit Department of Urology in [place], [place] [address] [place] [phone] Mark Colorado M.D. [facility] [place] [address] 12/12/2023 3:45 PM CDT Appointment Department of Radiology, [facility], in [place], [place] [address] [place] [phone] Na Hernandez M.D., Ph.D. [address] [place] [phone] 12/13/2023 6:00 AM CDT Lab Department of Laboratory Medicine and Pathology, [facility], in [place], [place] [address] [place] [phone] Loyda Lennon M.D. [address] [place] [phone] 12/13/2023 6:20 AM CDT Lab Department of Infusion Therapy in [place], [place] [address] [place] [phone] Loyda Lennon M.D. [address] [place] [phone] 12/13/2023 11:10 AM CDT Office Visit Department of Oncology in [place], [place] [address] [place] [phone] Na Hernandez M.D., Ph.D. [address] [place] [phone] 12/13/2023 1:00 PM CDT Infusion Department of Oncology in [place], [place] [address] [place] [phone] Loyda Lennon M.D. [address] [place] [phone] 12/20/2023 9:20 AM CDT Lab Department of Infusion Therapy in [address] [address] Loyda Lennon M.D. [address] [place] [phone] 12/20/2023 10:30 AM CDT Infusion Department of Oncology in [address] [address] Loyda Lennon M.D. [address] [place] [phone] 12/25/2023 10:30 AM CDT Appointment Division of Gastroenterology in [address] [address] Na Hernandez M.D., Ph.D. [address] [place] [phone] 12/27/2023 10:15 AM CDT Lab Department of Oncology in [place], [place] [address] [place] [phone] Loyda Lennon M.D. [address] [place] [phone] 12/27/2023 10:30 AM CDT Lab Department of Laboratory Medicine and Pathology, [facility] in [place], [place] [address] [place] [phone] Loyda Lennon M.D. [address] [place] [phone] 12/27/2023 11:45 AM CDT Infusion Department of Oncology in [place], [place] [address] [place] [phone] Loyda Lennon M.D. [address] [place] [phone] 01/03/2024 1:00 PM CDT Clinical Communication Virtual Review in [address] [phone] 01/10/2024 8:00 AM CDT Lab Department of Infusion Therapy in [address] [address] Loyda Lennon M.D. [address] [place] [phone] 01/10/2024 8:20 AM CDT Lab Department of Laboratory Medicine and Pathology, [facility] in [place], [place] [address] [place] [phone] Loyda Lennon M.D. [address] [place] [phone] 01/10/2024 10:30 AM CDT Office Visit Department of Oncology in [place], [place] [address] [place] [phone] Na Hernandez M.D., Ph.D. [address] [place] [phone] 01/10/2024 11:45 AM CDT Infusion Department of Oncology in [place], [place] [address] [place] [address] Loyda Lennon M.D. [address] [place] [phone] 01/17/2024 8:45 AM CDT Lab Department of Oncology in [place], [place] [address] [place] [phone] Loyda Lennon M.D. [address] [place] [address] 01/17/2024 10:00 AM CDT Infusion Department of Oncology in [address] [address] Loyda Lennon M.D. [address] [place] [phone] 01/24/2024 8:00 AM CDT Lab Department of Laboratory Medicine and Pathology, [facility], in [place], [place] [address] [place] [phone] Loyda Lennon M.D. [address] [place] [phone] 01/24/2024 8:15 AM CDT Lab Department of Oncology in [place], [place] [address] [place] [phone] Loyda Lennon M.D. [address] [place] [address] 01/24/2024 9:15 AM CDT Infusion Department of Oncology in [place], [place] [address] [place] [address] Loyda Lennon M.D. [address] [place] [address] Scheduled Procedures Name Priority Associated Diagnoses Date/Ti me HEPATECTOMY RESECTION LIVER Cholangiocarcinoma (HCC) ULTRASOUND LIVER Cholangiocarcinoma (HCC) RECONSTRUCTION PORTAL VEIN Cholangiocarcinoma (HCC) documented as of this encounter Visit Diagnoses Not on filedocumented in this encounter Additional Health Concerns Infection Onset Date Last Indicated Resolved Time Protective Environment 11/07/2022 11/07/2022 documented as of this encounter Care Teams Adjunct Writing Instructor Relationship Specialty Start Date End Date Mark Colorado M.D. [address] [place] [address] PCP - General Family Medicine 11/09/22 documented as of this encounter
--- OUTSIDE RECORDS SUMMARY | 2023-11-05 22:11 | XMS_ITS | Encounter Summary ---
Author Organization [facility] Address [address] [place] [address] Care Team Providers Care Rivet Passer Name Role Phone Mark Colorado M.D. Primary Care Provider [phone] Reason for Visit * Episode Based Medications (Routine) - Authorized Specialty Diagnoses / Procedures Referred By Contac t Referred To Contact Diagnoses Cholangiocarcinoma (HCC) Jail Current Drug Therapy, Chemotherapy Peritoneal Carcinomatosis (HCC) Neutropenia Chemotherapy Induced (HCC) Procedures AZ ONDANSETRON HCL INJECTION AZ PACLITAXEL INJECTION [place] INJECTION, DARINEL ONC Yuko Pennington MPAS, P.A.-C. [address] [place] [address] Rst Onc [place] [address] [place] [address] Referral ID Status Reason Start Date Expiration Date V isits Requested Visits Authorized [id number] Authorized 03/11/2023 03/31/2024 31 99 Encounter Details Date Type Department Care Team (Latest Contact Info) Description 08/28/2023 9:00 AM CDT Infusion Department of Oncology in [place], [place] [address] [place] [address] Yuko Pennington MPAS, P.AHolden-C. [address] [place] [phone] Pure Hypercholesterolemia (Primary Dx); Cholangiocarcinoma (HCC); Jail Current Drug Therapy, Chemotherapy; Peritoneal Carcinomatosis (HCC); [...] your living situation today? I have a [facility] place to live 09/10/2022 Sex and Gender Information Value Date Recorded Sex Assigned at Male 09/10/2022 12:02 PM CDT Gender Identity Male 09/10/2022 12:02 PM CDT Sexual Orientation Straight 09/10/2022 12 :02 PM CDT documented as of this encounter Last Filed Vital Signs Vital Sign Reading Time Taken Comments Blood Pressure 143/66 08/28/2023 9:05 AM CDT Pulse 69 08/28/2023 9:05 AM CDT Temperature 36.3 ??C (97.3 ??F) 08/28/2023 9:05 AM CD T Respiratory Rate - - Oxygen Saturation - - Inhaled Oxygen Concentration - - Weight 89 kg (196 lb 3.4 oz) 08/28/2023 9:05 AM CDT Height - - Body Mass Index 26.87 08/13/2023 1:06 PM CDT documented in this encounter Plan of Treatment Upcoming Encounters Date Type Department Care Team (Latest Contact Info) Description 11/07/2023 3:15 PM CDT Clinical Communication Virtual Review in [place] [id number] [place] [address] 11/15/2023 6:40 AM CDT Lab Department of Laboratory Medicine and Pathology, [facility], in [place], [place] [address] [place] [phone] Loyda Lennon M.D. [address] [place] [phone] 11/15/2023 8:20 AM CDT Office Visit Department of Oncology in [place], [place] [address] [place] [phone] Manjit Velasquez APRN, C.N.P., D.N.P. [address] [place] [phone] 11/15/2023 9:30 AM CDT Comprehensive Visit Department of Palliative Care in [place], [place] [address] [place] [phone] Patty Gomez APRN, C.N.P., M.S.N. [address] [place] [phone] 11/15/2023 2:15 PM CDT Infusion Department of Oncology in [address] [phone] Loyda Lennon M.D. [address] [place] [phone] 11/22/2023 7:30 AM CDT Lab Department of Oncology in [address] [phone] Loyda Lennon M.D. [address] [place] [phone] 11/22/2023 8:45 AM CDT Infusion Department of Oncology in [place], [place] [address] [place] [phone] Loyda Lennon M.D. [address] [place] [phone] 11/28/2023 3:30 PM CDT Clinical Communication Virtual Review in [place], [place] [address] [place] [address] 11/29/2023 9:00 AM CDT Procedure visit Department of Urology in [place], [place] [address] [place] [phone] Mark Colorado M.D. [address] [place] [address] 11/29/2023 11:20 AM CDT Lab Department of Laboratory Medicine and Pathology, [facility] in [place], [place] [address] [place] [phone] Loyda Lennon M.D. [address] [place] [phone] 11/29/2023 11:30 AM CDT Lab Department of Oncology in [place], [place] [address] [place] [phone] Loyda Lennon M.D. [address] [place] [phone] 11/29/2023 1:00 PM CDT Infusion Department of Oncology in [place], [place] [address] [place] [phone] Loyda Lennon M.D. [address] [place] [phone] 12/03/2023 1:45 PM CDT Comprehensive Visit Department of Urology in [place], [place] [address] [place] [phone] Mona Egan P.A.-C. [address] [place] [phone] 12/05/2023 1:20 PM CDT Comprehensive Visit Department of Oncology in [place], [place] [address] [place] [phone] Letty Kate M.D. [address] [place] [phone] 12/10/2023 3:00 PM CDT Clinical Communication Virtual Review in [place], [place] [address] [place] [address] 12/10/2023 3:30 PM CDT Procedure visit Department of Urology in [place], [place] [address] [place] [phone] Mark Colorado M.D. [address] [place] [address] 12/12/2023 3:45 PM CDT Appointment Department of Radiology, [facility], in [place], [place] [address] [place] [phone] Na Hernandez M.D., Ph.D. [address] [place] [phone] 12/13/2023 6:00 AM CDT Lab Department of Laboratory Medicine and Pathology, [facility], in [place], [place] [address] [place] [phone] Loyda Lennon M.D. [address] [place] [phone] 12/13/2023 6:20 AM CDT Lab Department of Infusion Therapy in [place], [place] [address] [place] [phone] Loyda Lennon M.D. [address] [place] [phone] 12/13/2023 11:10 AM CDT Office Visit Department of Oncology in [place], [place] [address] [place] [phone] Na Hernandez M.D., Ph.D. [address] [place] [phone] 12/13/2023 1:00 PM CDT Infusion Department of Oncology in [place], [place] [address] [place] [phone] Loyda Lennon M.D. [address] [place] [phone] 12/20/2023 9:20 AM CDT Lab Department of Infusion Therapy in [place], [place] [address] [place] [phone] Loyda Lennon M.D. [address] [place] [phone] 12/20/2023 10:30 AM CDT Infusion Department of Oncology in [place], [place] [address] [place] [phone] Loyda Lennon M.D. [address] [place] [phone] 12/25/2023 10:30 AM CDT Appointment Division of Gastroenterology in [address] [phone] Na Hernandez M.D., Ph.D. [address] [place] [phone] 12/27/2023 10:15 AM CDT Lab Department of Oncology in [place], [place] [address] [place] [phone] Loyda Lennon M.D. [address] [place] [phone] 12/27/2023 10:30 AM CDT Lab Department of Laboratory Medicine and Pathology, [facility], in [place], [place] [address] [place] [phone] Loyda Lennon M.D. [address] [place] [phone] 12/27/2023 11:45 AM CDT Infusion Department of Oncology in [place], [place] [address] [place] [phone] Loyda Lennon M.D. [address] [place] [phone] 01/03/2024 1:00 PM CDT Clinical Communication Virtual Review in [place], [place] [address] [place] [address] 01/10/2024 8:00 AM CDT Lab Department of Infusion Therapy in [place], [place] [address] [place] [phone] Loyda Lennon M.D. [address] [place] [phone] 01/10/2024 8:20 AM CDT Lab Department of Laboratory Medicine and Pathology, [facility], in [place], [place] [address] [place] [phone] Loyda Lennon M.D. [address] [place] [phone] 01/10/2024 10:30 AM CDT Office Visit Department of Oncology in [place], [place] [address] [place] [phone] Na Hernandez M.D., Ph.D. [address] [place] [phone] 01/10/2024 11:45 AM CDT Infusion Department of Oncology in [place], [place] [address] [place] [phone] Loyda Lennon M.D. [address] [place] [phone] 01/17/2024 8:45 AM CDT Lab Department of Oncology in [place], [place] [address] [place] [phone] Loyda Lennon M.D. [address] [place] [phone] 01/17/2024 10:00 AM CDT Infusion Department of Oncology in [place], [place] [address] [place] [phone] Loyda Lennon M.D. [address] [place] [phone] 01/24/2024 8:00 AM CDT Lab Department of Laboratory Medicine and Pathology, [facility], in [place], [place] [address] [place] [phone] Loyda Lennon M.D. [address] [place] [phone] 01/24/2024 8:15 AM CDT Lab Department of Oncology in [place], [place] [address] [place] [phone] Loyda Lennon M.D. [address] [place] [phone] 01/24/2024 9:15 AM CDT Infusion Department of Oncology in [place], [place] [address] [place] [phone] Loyda Lennon M.D. [address] [place] [phone] Scheduled Procedures Name Priority Associated Diagnoses Date/Ti me HEPATECTOMY RESECTION LIVER Cholangiocarcinoma (HCC) ULTRASOUND LIVER Cholangiocarcinoma (HCC) RECONSTRUCTION PORTAL VEIN Cholangiocarcinoma (HCC) documented as of this encounter Visit Diagnoses Diagnosis Pure Hypercholesterolemia- Primary Cholangiocarcinoma (HCC) Policy Checker Current Drug Therapy, Chemotherapy Peritoneal Carcinomatosis (HCC) Neutropenia Chemotherapy Induced (HCC) documented in this encounter Administered Medications Inactive Administered Medications - up to 3 most recent administrations Medication Order MAR Action Action Date Dose Rate Site dexAMETHasone injection 10 mg (DECADRON) 10 mg, intravenous, Once, On Sat08/28/23 at 0930, For 1 dose Given 08/28/2023 9:17 AM CDT 10 mg diphenhydrAMINE 25 mg in NaCl 0.9% IVPB (BENADRYL) 25 mg, intravenous, at 101 mL/hr, Administer over 30 Minutes, Once, On Sat08/28/23 at 0930, For 1 dose New Bag 08/28/2023 9:59 AM CDT 25 mg 101 mL/hr famotidine injection 20 mg (PEPCID) 20 mg, intravenous, Once, On Sat08/28/23 at 0930, For 1 dose Given 08/28/2023 9:17 AM CDT 20 mg heparin flush 500 Units 500 Units, intra-catheter, As needed, line care, Starting on Sat08/28/23 at 0900, When IVAD accessed and not infusing: When no infusion to maintain patency flush every 7 days following NaCL flush. 5 mL (500 units) of Heparin 100 units/mL to each port/lumen. When IVAD not accessed or infusing: When no infusion to maintain patency flush every 28 days following NaCL flush. 5 mL (500 units) of Heparin 100 units/mL to each port/lumen. Given 08/28/2023 1:00 PM CDT 500 Units ondansetron (PF) injection 8 mg (ZOFRAN) 8 mg, intravenous, Once, On Sat08/28/23 at 0930, For 1 dose Given 08/28/2023 9:17 AM CDT 8 mg PACLitaxeL 150 mg in NaCl 0.9% (non-PVC) 300 mL IVPB (TAXOL) 150 mg (rounded from 149.8 mg = 70 mg/m2 ? 2.14 m2 Treatment Plan BSA from Measured weight), intravenous, at 300 mL/hr, Administer over 1 Hours, Once, On Sat08/28/23 at 1100, For 1 dose, Administer immediately after the end of the CTX-009 infusion. Administer via 0.22 micron in-line filter. New Bag 08/28/2023 11:51 AM CDT 150 mg 300 mL/hr Research IR[facility] [id number] CTX-009 900 mg in NaCl 0.9% (non-PVC) 250 mL IVPB 900 mg (10 mg/kg ? 90 kg Treatment plan Measured weight), intravenous, at 250 mL/hr, Administer over 1 Hours, Once, On Sat08/28/23 at 1000, For 1 dose, May administer 15 minutes [...] bag and tubing are non-PVC. New Bag 08/28/2023 10:34 AM CDT 900 mg 250 mL/hr sodium chloride 0.9 % injection 10-20 mL 10-20 mL, intra-catheter, As needed, line care, Starting on Sat08/28/23 at 0900, When IVAD accessed and infusing: Flush prior to and following infusion, between multiple consecutive infusions. 10 mL to each port/lumen. Given 08/28/2023 1:00 PM CDT 10 mL Given 08/28/2023 9:18 AM CDT 10 mL sodium chloride 0.9 % injection 20-40 mL 20-40 mL, intra-catheter, As needed, line care, Starting on Sat08/28/23 at 0900, When IVAD accessed and infusing: Flush prior to blood sampling, post blood transfusion or post blood sampling. 20 mL to each port/lumen. Given 08/28/2023 11:38 AM CDT 30 mL documented in this encounter Additional Health Concerns Infection Onset Date Last Indicated Resolved Time Protective Environment 11/07/2022 11/07/2022 documented as of this encounter Care Teams Rivet Passer Relationship Specialty Start Date End Date Mark Colorado M.D. [address] [place], [place] [address] [place] [address] PCP - General Family Medicine 11/09/22 documented as of this encounter
--- OUTSIDE RECORDS SUMMARY | 2023-11-05 22:11 | XMS_ITS | Encounter Summary ---
Author Organization [facility] Address [address] [place] [address] Care Team Providers Care Uppers Edge Burnisher Name Role Phone Mark Colorado M.D. Primary Care Provider [phone] Reason for Visit * Episode Based Medications (Routine) - Authorized Specialty Diagnoses / Procedures Referred By Contac t Referred To Contact Diagnoses Cholangiocarcinoma (HCC) Fdc Current Drug Therapy, Chemotherapy Peritoneal Carcinomatosis (HCC) Neutropenia Chemotherapy Induced (HCC) Procedures WY ONDANSETRON HCL INJECTION WY PACLITAXEL INJECTION WY INJECTION, DARINEL ONC Yuko Pennington MPAS, P.A.-C. [address] [place] [address] Rst Onc Cruz [address] [place] [address] Referral ID Status Reason Start Date Expiration Date V isits Requested Visits Authorized [id number] Authorized 03/11/2023 03/31/2024 31 99 Encounter Details Date Type Department Care Team (Latest Contact Info) Description 08/20/2023 10:00 AM CDT Infusion Department of Oncology in [place], [place] [address] [place] [address] Yuko Pennington MPAS, P.AHolden-C. [address] [place] [phone] [employer] F[employer] Current Drug Therapy, Chemotherapy (Primary Dx); Cholangiocarcinoma [...] your living situation today? I have a [facility] place to live 09/10/2022 Sex and Gender Information Value Date Recorded Sex Assigned at Male 09/10/2022 12:02 PM CDT Gender Identity Male 09/10/2022 12:02 PM CDT Sexual Orientation Straight 09/10/2022 12 :02 PM CDT documented as of this encounter Last Filed Vital Signs Vital Sign Reading Time Taken Comments Blood Pressure 141/67 08/20/2023 11:00 AM CDT pre taxol Pulse 60 08/20/2023 11:00 AM CDT Temperature 36.5 ??C (97.7 ??F) 08/20/2023 1 1:00 AM CDT Respiratory Rate 12 08/20/2023 11:0 0 AM CDT Oxygen Saturation 100% 08/20/2023 11: 00 AM CDT Inhaled Oxygen Concentration - - Weight 88.6 kg (195 lb 5.2 oz) 08/20/19 10:52 AM CDT Height - - Body Mass Index 26.75 08/13/2023 1:06 PM CDT documented in this encounter Plan of Treatment Upcoming Encounters Date Type Department Care Team (Latest Contact Info) Description 11/07/2023 3:15 PM CDT Clinical Communication Virtual Review in [place], [place] [address] [place] [address] 11/15/2023 6:40 AM CDT Lab Department of Laboratory Medicine and Pathology, [facility] in [place], [place] [address] [place] [phone] Loyda Lennon M.D. [address] [place] [phone] 11/15/2023 8:20 AM CDT Office Visit Department of Oncology in [place], [place] [address] [place] [phone] Manjit Velasquez APRN, C.N.P., D.N.P. [address] [place] [phone] 11/15/2023 9:30 AM CDT Comprehensive Visit Department of Palliative Care in [address] [address] Patty Gomez APRN, C.N.P., M.S.N. [address] [place] [phone] 11/15/2023 2:15 PM CDT Infusion Department of Oncology in [address] [address] Loyda Lennon M.D. [address] [place] [phone] 11/22/2023 7:30 AM CDT Lab Department of Oncology in [address] [address] Loyda Lennon M.D. [address] [place] [phone] 11/22/2023 8:45 AM CDT Infusion Department of Oncology in [place], [place] [address] [place] [phone] Loyda Lennon M.D. [address] [place] [phone] 11/28/2023 3:30 PM CDT Clinical Communication Virtual Review in [place], [place] [address] [place] [address] 11/29/2023 9:00 AM CDT Procedure visit Department of Urology in [place], [place] [address] [place] [phone] Mark Colorado M.D. [address] [place] [address] [place] [id number] 11/29/2023 11:20 AM CDT Lab Department of Laboratory Medicine and Pathology, [facility] in [place], [place] [address] [place] [phone] Loyda Lennon M.D. [address] [place] [phone] 11/29/2023 11:30 AM CDT Lab Department of Oncology in [address] [address] Loyda Lennon M.D. [address] [place] [phone] 11/29/2023 1:00 PM CDT Infusion Department of Oncology in [place], [place] [address] [place] [phone] Loyda Lennon M.D. [address] [place] [phone] 12/03/2023 1:45 PM CDT Comprehensive Visit Department of Urology in [place], [place] [address] [place] [phone] Mona Egan P.A.-C. [address] [place] [phone] 12/05/2023 1:20 PM CDT Comprehensive Visit Department of Oncology in [place], [place] [address] [place] [phone] Letty Kate M.D. [address] [place] [address] 12/10/2023 3:00 PM CDT Clinical Communication Virtual Review in [place], [place] [address] [place] [address] 12/10/2023 3:30 PM CDT Procedure visit Department of Urology in [place], [place] [address] [place] [phone] Mark Colorado M.D. [address] [place] [address] [place] [id number] 12/12/2023 3:45 PM CDT Appointment Department of Radiology, [facility], in [place], [place] [address] [place] [phone] Na Hernandez M.D., Ph.D. [address] [place] [phone] 12/13/2023 6:00 AM CDT Lab Department of Laboratory Medicine and Pathology, [facility], in [place], [place] [address] [place] [phone] Loyda Lennon M.D. [address] [place] [address] 12/13/2023 6:20 AM CDT Lab Department of Infusion Therapy in [place], [place] [address] [place] [phone] Loyda Lennon M.D. [address] [place] [phone] 12/13/2023 11:10 AM CDT Office Visit Department of Oncology in [place], [place] [address] [place] [phone] Na Hernandez M.D., Ph.D. [address] [place] [address] 12/13/2023 1:00 PM CDT Infusion Department of Oncology in [place], [place] [address] [place] [phone] Loyda Lennon M.D. [address] [place] [phone] 12/20/2023 9:20 AM CDT Lab Department of Infusion Therapy in [place], [place] [address] [place] [address] Loyda Lennon M.D. [address] [place] [address] 12/20/2023 10:30 AM CDT Infusion Department of Oncology in [address] [address] Loyda Lennon M.D. [address] [place] [phone] 12/25/2023 10:30 AM CDT Appointment Division of Gastroenterology in [address] [address] Na Hernandez M.D., Ph.D. [address] [place] [phone] 12/27/2023 10:15 AM CDT Lab Department of Oncology in [address] [address] Loyda Lennon M.D. [address] [place] [phone] 12/27/2023 10:30 AM CDT Lab Department of Laboratory Medicine and Pathology, [facility] in [place], [place] [address] [place] [phone] Loyda Lennon M.D. [address] [place] [address] 12/27/2023 11:45 AM CDT Infusion Department of Oncology in [place], [place] [address] [place] [phone] Loyda Lennon M.D. [address] [place] [phone] 01/03/2024 1:00 PM CDT Clinical Communication Virtual Review in [place], [place] [address] [place] [address] 01/10/2024 8:00 AM CDT Lab Department of Infusion Therapy in [address] [address] Loyda Lennon M.D. [address] [place] [phone] 01/10/2024 8:20 AM CDT Lab Department of Laboratory Medicine and Pathology, [facility], in [place], [place] [address] [place] [phone] Loyda Lennon M.D. [address] [place] [address] 01/10/2024 10:30 AM CDT Office Visit Department of Oncology in [address] [phone] Na Hernandez M.D., Ph.D. [address] [place] [phone] 01/10/2024 11:45 AM CDT Infusion Department of Oncology in [place], [place] [address] [place] [address] Loyda Lennon M.D. [address] [place] [address] 01/17/2024 8:45 AM CDT Lab Department of Oncology in [place], [place] [address] [place] [address] Loyda Lennon M.D. [address] [place] [address] 01/17/2024 10:00 AM CDT Infusion Department of Oncology in [place], [place] [address] [place] [address] Loyda Lennon M.D. [address] [place] [address] 01/24/2024 8:00 AM CDT Lab Department of Laboratory Medicine and Pathology, [facility], in [place], [place] [address] [place] [address] Loyda Lennon M.D. [address] [place] [address] 01/24/2024 8:15 AM CDT Lab Department of Oncology in [place], [place] [address] [place] [address] Loyda Lennon M.D. [address] [place] [address] 01/24/2024 9:15 AM CDT Infusion Department of Oncology in [place], [place] [address] [place] [address] Loyda Lennon M.D. 200 [place] [address] Scheduled Procedures Name Priority Associated Diagnoses Date/Ti me HEPATECTOMY RESECTION LIVER Cholangiocarcinoma (HCC) ULTRASOUND LIVER Cholangiocarcinoma (HCC) RECONSTRUCTION PORTAL VEIN Cholangiocarcinoma (HCC) documented as of this encounter Visit Diagnoses Diagnosis Fdc Current Drug Therapy, Chemotherapy- Primary Cholangiocarcinoma (HCC) Peritoneal Carcinomatosis (HCC) Neutropenia Chemotherapy Induced (HCC) Pure Hypercholesterolemia documented in this encounter Administered Medications Inactive Administered Medications - up to 3 most recent administrations Medication Order MAR Action Action Date Dose Rate Site dexAMETHasone injection 10 mg (DECADRON) 10 mg, intravenous, Once, On Sat08/20/23 at 1115, For 1 dose Given 08/20/2023 11:08 AM CDT 10 mg diphenhydrAMINE 25 mg in NaCl 0.9% IVPB (BENADRYL) 25 mg, intravenous, at 202 mL/hr, Administer over 15 Minutes, Once, On Sat08/20/23 at 1115, For 1 dose New Bag 08/20/2023 11:19 AM CDT 25 mg 202 mL/hr famotidine injection 20 mg (PEPCID) 20 mg, intravenous, Once, On Sat08/20/23 at 1115, For 1 dose Given 08/20/2023 11:08 AM CDT 20 mg heparin flush 500 Units 500 Units, intra-catheter, As needed, line care, Starting on Sat08/20/23 at 1052, When IVAD accessed and not infusing: When no infusion to maintain patency flush every 7 days following NaCL flush. 5 mL (500 units) of Heparin 100 units/mL to each port/lumen. When IVAD not accessed or infusing: When no infusion to maintain patency flush every 28 days following NaCL flush. 5 mL (500 units) of Heparin 100 units/mL to each port/lumen. Given 08/20/2023 1:01 PM CDT 500 Units ondansetron (PF) injection 8 mg (ZOFRAN) 8 mg, intravenous, Once, On Sat08/20/23 at 1115, For 1 dose Given 08/20/2023 11:13 AM CDT 8 mg PACLitaxeL 150 mg in NaCl 0.9% (non-PVC) 300 mL IVPB (TAXOL) 150 mg (rounded from 149.8 mg = 70 mg/m2 ? 2.14 m2 Treatment Plan BSA from Measured weight), intravenous, at 300 mL/hr, Administer over 1 Hours, Once, On Sat08/20/23 at 1145, For 1 dose, Administer via 0.22 micron in-line filter. New Bag 08/20/2023 11:54 AM CDT 150 mg 300 mL/hr sodium chloride 0.9 % injection 10-20 mL 10-20 mL, intra-catheter, As needed, line care, Starting on Sat08/20/23 at 1052, When IVAD accessed and infusing: Flush prior to and following infusion, between multiple consecutive infusions. 10 mL to each port/lumen. Given 08/20/2023 1:00 PM CDT 10 mL documented in this encounter Additional Health Concerns Infection Onset Date Last Indicated Resolved Time Protective Environment 11/07/2022 11/07/2022 documented as of this encounter Care Teams Uppers Edge Burnisher Relationship Specialty Start Date End Date Mark Colorado M.D. [address] [place] [phone] PCP - General Family Medicine 11/09/22 documented as of this encounter
--- OUTSIDE RECORDS SUMMARY | 2023-11-05 22:11 | XMS_ITS | Encounter Summary ---
Author Organization [facility] Address [address] [place] [address] Care Team Providers Care Repair Technician Name Role Phone Mark Colorado M.D. 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 I have a [facility] place to live 09/10/2022 Sex and Gender Information Value Date Recorded Sex Assigned at Male 09/10/2022 12:02 PM CDT Gender Identity Male 09/10/2022 12:02 PM CDT Sexual Orientation Straight 09/10/2022 12 :02 PM CDT documented as of this encounter Plan of Treatment Upcoming Encounters Date Type Department Care Team (Latest Contact Info) Description 11/07/2023 3:15 PM CDT Clinical Communication Virtual Review in [place], [place] [address] [place] [address] 11/15/2023 6:40 AM CDT Lab Department of Laboratory Medicine and Pathology, [facility] in [address] [address] Loyda Lennon M.D. [address] [place] [phone] 11/15/2023 8:20 AM CDT Office Visit Department of Oncology in [address] [phone] Manjit Velasquez APRN, C.N.P., D.N.P. [address] [place] [phone] 11/15/2023 9:30 AM CDT Comprehensive Visit Department of Palliative Care in [address] [address] Patty Gomez APRN, C.N.P., M.S.N. [address] [place] [phone] 11/15/2023 2:15 PM CDT Infusion Department of Oncology in [address] [address] Loyda Lennon M.D. [address] [place] [phone] 11/22/2023 7:30 AM CDT Lab Department of Oncology in [place], [place] [address] [place] [address] Loyda Lennon M.D. [address] [place] [address] 11/22/2023 8:45 AM CDT Infusion Department of Oncology in [place], [place] [address] [place] [phone] Loyda Lennon M.D. [address] [place] [phone] 11/28/2023 3:30 PM CDT Clinical Communication Virtual Review in [place], [place] [address] [place] [address] 11/29/2023 9:00 AM CDT Procedure visit Department of Urology in [place], [place] [address] [place] [phone] Mark Colorado M.D. [facility] [place] [phone] 11/29/2023 11:20 AM CDT Lab Department of Laboratory Medicine and Pathology, [facility], in [place], [place] [address] [place] [phone] Loyda Lennon M.D. [address] [place] [phone] 11/29/2023 11:30 AM CDT Lab Department of Oncology in [place], [place] [address] [place] [phone] Loyda Lennon M.D. [address] [place] [phone] 11/29/2023 1:00 PM CDT Infusion Department of Oncology in [place], [place] [address] [place] [address] Loyda Lennon M.D. [address] [place] [phone] 12/03/2023 1:45 PM CDT Comprehensive Visit Department of Urology in [place], [place] [address] [place] [phone] Mona Egan P.A.-C. [address] [place] [phone] 12/05/2023 1:20 PM CDT Comprehensive Visit Department of Oncology in [place], [place] [address] [place] [phone] Letty Kate M.D. [address] [place] [phone] 12/10/2023 3:00 PM CDT Clinical Communication Virtual Review in [place], [place] [address] [place] [address] 12/10/2023 3:30 PM CDT Procedure visit Department of Urology in [place], [place] [address] [place] [phone] Mark Colorado M.D. [address] [place] [address] [place] [address] 12/12/2023 3:45 PM CDT Appointment Department of Radiology, [facility], in [place], [place] [address] [place] [phone] Na Hernandez M.D., Ph.D. [address] [place] [phone] 12/13/2023 6:00 AM CDT Lab Department of Laboratory Medicine and Pathology, [facility], in [place], [place] [address] [place] [phone] Loyda Lennon M.D. [address] [place] [phone] 12/13/2023 6:20 AM CDT Lab Department of Infusion Therapy in [place], [place] [address] [place] [phone] Loyda Lennon M.D. [address] [place] [phone] 12/13/2023 11:10 AM CDT Office Visit Department of Oncology in [place], [place] [address] [place] [phone] Na Hernandez M.D., Ph.D. [address] [place] [phone] 12/13/2023 1:00 PM CDT Infusion Department of Oncology in [address] [address] Loyda Lennon M.D. [address] [place] [phone] 12/20/2023 9:20 AM CDT Lab Department of Infusion Therapy in [place], [place] [address] [place] [address] Loyda Lennon M.D. [address] [place] [phone] 12/20/2023 10:30 AM CDT Infusion Department of Oncology in [place], [place] [address] [place] [phone] Loyda Lennon M.D. [address] [place] [phone] 12/25/2023 10:30 AM CDT Appointment Division of Gastroenterology in [place], [place] [address] [place] [phone] Na Hernandez M.D., Ph.D. [address] [place] [phone] 12/27/2023 10:15 AM CDT Lab Department of Oncology in [place], [place] [address] [place] [phone] Loyda Lennon M.D. [address] [place] [phone] 12/27/2023 10:30 AM CDT Lab Department of Laboratory Medicine and Pathology, [address] [address] Loyda Lennon M.D. [address] [place] [phone] 12/27/2023 11:45 AM CDT Infusion Department of Oncology in [address] [address] Loyda Lennon M.D. [address] [place] [phone] 01/03/2024 1:00 PM CDT Clinical Communication Virtual Review in [place], [place] [address] [place] [address] 01/10/2024 8:00 AM CDT Lab Department of Infusion Therapy in [address] [address] Loyda Lennon M.D. [address] [place] [phone] 01/10/2024 8:20 AM CDT Lab Department of Laboratory Medicine and Pathology, [facility] in [place], [place] [address] [place] [phone] Loyda Lennon M.D. [address] [place] [phone] 01/10/2024 10:30 AM CDT Office Visit Department of Oncology in [place], [place] [address] [place] [phone] Na Hernandez M.D., Ph.D. [address] [place] [phone] 01/10/2024 11:45 AM CDT Infusion Department of Oncology in [place], [place] [address] [place] [phone] Loyda Lennon M.D. [address] [place] [phone] 01/17/2024 8:45 AM CDT Lab Department of Oncology in [place], [place] [address] [place] [phone] Loyda Lennon M.D. [address] [place] [phone] 01/17/2024 10:00 AM CDT Infusion Department of Oncology in [place], [place] [address] [place] [phone] Loyda Lennon M.D. [address] [place] [phone] 01/24/2024 8:00 AM CDT Lab Department of Laboratory Medicine and Pathology, [facility], in [place], [place] [address] [place] [phone] Loyda Lennon M.D. [address] [place] [phone] 01/24/2024 8:15 AM CDT Lab Department of Oncology in [place], [place] [address] [place] [address] Loyda Lennon M.D. [address] [place] [address] 01/24/2024 9:15 AM CDT Infusion Department of Oncology in [place], [place] [address] [place] [address] Loyda Lennon M.D. [address] [place] [address] Scheduled Procedures Name Priority Associated Diagnoses Date/Ti [...] documented as of this encounter Care Teams Repair Technician Relationship Specialty Start Date End Date Mark Colorado M.D. [facility] [place] [phone] PCP - General Family Medicine 11/09/22 documented as of this encounter
--- OUTSIDE RECORDS SUMMARY | 2023-11-05 22:11 | XMS_ITS | Encounter Summary ---
Author Organization [facility] Address [address] [place] [address] Care Team Providers Care Television Repair Teacher Name Role Phone Mark Colorado M.D. Primary Care Provider [phone] Reason for Visit * Episode Based Medications (Routine) - Authorized Specialty Diagnoses / Procedures Referred By Contac t Referred To Contact Diagnoses Cholangiocarcinoma (HCC) Retirement Current Drug Therapy, Chemotherapy Peritoneal Carcinomatosis (HCC) Neutropenia Chemotherapy Induced (HCC) Procedures RI ONDANSETRON HCL INJECTION RI PACLITAXEL INJECTION RI INJECTION, DARINEL ONC Yuko Pennington MPAS, P.A.-C. [address] [place] [address] Rst Onc Cruz [address] [place] [address] Referral ID Status Reason Start Date Expiration Date V isits Requested Visits Authorized [id number] Authorized 03/11/2023 03/31/2024 31 99 Encounter Details Date Type Department Care Team (Latest Contact Info) Description 08/27/2023 10:00 AM CDT Infusion Department of Oncology in [place], [place] [address] [place] [address] Yuko Pennington MPAS, P.AHolden-C. [address] [place] [phone] Pure Hypercholesterolemia (Primary Dx); Cholangiocarcinoma (HCC); Retirement Current Drug Therapy, Chemotherapy; Peritoneal Carcinomatosis (HCC); [...] Sign Reading Time Taken Comments Blood Pressure 127/57 08/27/2023 12:49 PM CDT Pulse 58 08/27/2023 12:49 PM CDT Temperature 36.4 ??C (97.5 ??F) 08/27/2023 12:49 PM C DT Respiratory Rate - - Oxygen Saturation - - Inhaled Oxygen Concentration - - Weight 89 kg (196 lb 5.1 oz) 08/27/2023 12:49 PM CDT Height - - Body Mass Index 26.88 08/13/2023 1:06 PM CDT documented in this encounter Plan of Treatment Upcoming Encounters Date Type Department Care Team (Latest Contact Info) Description 11/07/2023 3:15 PM CDT Clinical Communication Virtual Review in [place] [address] [place] [address] 11/15/2023 6:40 AM CDT Lab Department of Laboratory Medicine and Pathology, [facility], in [place], [place] [address] [place] [phone] Loyda Lennon M.D. [address] [place] [phone] 11/15/2023 8:20 AM CDT Office Visit Department of Oncology in [place], [place] [address] [place] [address] Manjit Velasquez APRN, C.N.P., D.N.P. [address] [place] [phone] 11/15/2023 9:30 AM CDT Comprehensive Visit Department of Palliative Care in [place], [place] [address] [place] [phone] Patty Gomez APRN, C.N.P., M.S.N. [address] [place] [phone] 11/15/2023 2:15 PM CDT Infusion Department of Oncology in [address] [address] Loyda Lennon M.D. [address] [place] [phone] 11/22/2023 7:30 AM CDT Lab Department of Oncology in [address] [address] Loyda Lennon M.D. [address] [place] [phone] 11/22/2023 8:45 AM CDT Infusion Department of Oncology in [place], [place] [address] [place] [phone] Loyda Lennon M.D. [address] [place] [address] 11/28/2023 3:30 PM CDT Clinical Communication Virtual Review in [place], [place] 200 [place] [address] 11/29/2023 9:00 AM CDT Procedure visit Department of Urology in [place], [place] [address] [place] [phone] Mark Colorado M.D. [address] [place] [address] 11/29/2023 11:20 AM CDT Lab Department of Laboratory Medicine and Pathology, [facility] in [place], [place] [address] [place] [phone] Loyda Lennon M.D. [address] [place] [phone] 11/29/2023 11:30 AM CDT Lab Department of Oncology in [place], [place] [address] [place] [address] Loyda Lennon M.D. [address] [place] [address] 11/29/2023 1:00 PM CDT Infusion Department of Oncology in [place], [place] [address] [place] [phone] Loyda Lennon M.D. [address] [place] [phone] 12/03/2023 1:45 PM CDT Comprehensive Visit Department of Urology in [place], [place] [address] [place] [phone] Mona Egan P.A.-C. [address] [place] [address] 12/05/2023 1:20 PM CDT Comprehensive Visit Department of Oncology in [place], [place] [address] [place] [phone] Letty Kate M.D. [address] [place] [phone] 12/10/2023 3:00 PM CDT Clinical Communication Virtual Review in [place], [place] 200 [place] [address] 12/10/2023 3:30 PM CDT Procedure visit Department of Urology in [place], [place] [address] [place] [phone] Mark Colorado M.D. [address] [place] [address] 12/12/2023 3:45 PM CDT Appointment Department of Radiology, [facility], in [place], [place] [address] [place] [phone] Na Hernandez M.D., Ph.D. [address] [place] [address] 12/13/2023 6:00 AM CDT Lab Department of Laboratory Medicine and Pathology, [facility], in [place], [place] [address] [place] [phone] Loyda Lennon M.D. [address] [place] [address] 12/13/2023 6:20 AM CDT Lab Department of Infusion Therapy in [place], [place] [address] [place] [address] Loyda Lennon M.D. [address] [place] [phone] 12/13/2023 11:10 AM CDT Office Visit Department of Oncology in [place], [place] [address] [place] [phone] Na Hernandez M.D., Ph.D. [address] [place] [address] 12/13/2023 1:00 PM CDT Infusion Department of Oncology in [place], [place] [address] [place] [phone] Loyda Lennon M.D. [address] [place] [phone] 12/20/2023 9:20 AM CDT Lab Department of Infusion Therapy in [place], [place] [address] [place] [phone] Loyda Lennon M.D. [address] [place] [phone] 12/20/2023 10:30 AM CDT Infusion Department of Oncology in [place], [place] [address] [place] [phone] Loyda Lennon M.D. [address] [place] [phone] 12/25/2023 10:30 AM CDT Appointment Division of Gastroenterology in [address] [address] Na Hernandez M.D., Ph.D. [address] [place] [phone] 12/27/2023 10:15 AM CDT Lab Department of Oncology in [place], [place] [address] [place] [phone] Loyda Lennon M.D. [address] [place] [phone] 12/27/2023 10:30 AM CDT Lab Department of Laboratory Medicine and Pathology, [facility], in [place], [place] [address] [place] [phone] Loyda Lennon M.D. [address] [place] [address] 12/27/2023 11:45 AM CDT Infusion Department of Oncology in [place], [place] [address] [place] [phone] Loyda Lennon M.D. [address] [place] [phone] 01/03/2024 1:00 PM CDT Clinical Communication Virtual Review in [place], [place] 200 [place] [address] 01/10/2024 8:00 AM CDT Lab Department of Infusion Therapy in [place], [place] [address] [place] [phone] Loyda Lennon M.D. [address] [place] [address] 01/10/2024 8:20 AM CDT Lab Department of Laboratory Medicine and Pathology, [facility], in [place], [place] [address] [place] [phone] Loyda Lennon M.D. [address] [place] [phone] 01/10/2024 10:30 AM CDT Office Visit Department of Oncology in [place], [place] [address] [place] [phone] Na Hernandez M.D., Ph.D. [address] [place] [phone] 01/10/2024 11:45 AM CDT Infusion Department of Oncology in [place], [place] [address] [place] [phone] Loyda Lennon M.D. [address] [place] [phone] 01/17/2024 8:45 AM CDT Lab Department of Oncology in [place], [place] [address] [place] [phone] Loyda Lennon M.D. [address] [place] [address] 01/17/2024 10:00 AM CDT Infusion Department of Oncology in [place], [place] [address] [place] [phone] Loyda Lennon M.D. [address] [place] [phone] 01/24/2024 8:00 AM CDT Lab Department of Laboratory Medicine and Pathology, [facility], in [place], [place] [address] [place] [phone] Loyda Lennon M.D. [address] [place] [address] 01/24/2024 8:15 AM CDT Lab Department of Oncology in [place], [place] [address] [place] [phone] Loyda Lennon M.D. [address] [place] [address] 01/24/2024 9:15 AM CDT Infusion Department of Oncology in [place], [place] [address] [place] [phone] Loyda Lennon M.D. [address] [place] [phone] Scheduled Procedures Name Priority Associated Diagnoses Date/Ti me HEPATECTOMY RESECTION LIVER Cholangiocarcinoma (HCC) ULTRASOUND LIVER Cholangiocarcinoma (HCC) RECONSTRUCTION PORTAL VEIN Cholangiocarcinoma (HCC) documented as of this encounter Visit Diagnoses Diagnosis Pure Hypercholesterolemia- Primary Cholangiocarcinoma (HCC) Retirement Current Drug Therapy, Chemotherapy Peritoneal Carcinomatosis (HCC) Neutropenia Chemotherapy Induced (HCC) documented in this encounter Administered Medications Inactive Administered Medications - up to 3 most recent administrations Medication Order MAR Action Action Date Dose Rate Site dexAMETHasone injection 10 mg (DECADRON) 10 mg, intravenous, Once, On Sat08/27/23 at 1315, For 1 dose Given 08/27/2023 1:11 PM CDT 10 mg diphenhydrAMINE 25 mg in NaCl 0.9% IVPB (BENADRYL) 25 mg, intravenous, at 101 mL/hr, Administer over 30 Minutes, Once, On Sat08/27/23 at 1315, For 1 dose New Bag 08/27/2023 1:35 PM CDT 25 mg 101 mL/hr famotidine injection 20 mg (PEPCID) 20 mg, intravenous, Once, On Sat08/27/23 at 1315, For 1 dose Given 08/27/2023 1:11 PM CDT 20 mg ondansetron (PF) injection 8 mg (ZOFRAN) 8 mg, intravenous, Once, On Sat08/27/23 at 1315, For 1 dose Given 08/27/2023 1:18 PM CDT 8 mg documented in this encounter Additional Health Concerns Infection Onset Date Last Indicated Resolved Time Protective Environment 11/07/2022 11/07/2022 documented as of this encounter Care Teams Television Repair Teacher Relationship Specialty Start Date End Date Mark Colorado M.D. NPJono: [phone] [id number] [place], [place] [address] PCP - General Family Medicine 11/09/22 documented as of this encounter
--- OUTSIDE RECORDS SUMMARY | 2023-11-05 22:11 | XMS_ITS | Encounter Summary ---
Author Organization [facility] Address [address] [place] [address] Care Team Providers Care Corporate Attorney Name Role Phone Mark Colorado M.D. 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 Current Drug Therapy, Chemotherapy; Peritoneal Carcinomatosis (HCC); [...] [facility] 09/10/2022 Sex and Gender Information Value Date Recorded Sex Assigned at Male 09/10/2022 12:02 PM CDT Gender Identity Male 09/10/2022 12:02 PM CDT Sexual Orientation Straight 09/10/2022 12 :02 PM CDT documented as of this encounter Plan of Treatment Upcoming Encounters Date Type Department Care Team (Latest Contact Info) Description 11/07/2023 3:15 PM CDT Clinical Communication Virtual Review in [place], [place] 200 [place] [address] 11/15/2023 6:40 AM CDT Lab Department of Laboratory Medicine and Pathology, [facility] in [address] [phone] Loyda Lennon M.D. [address] [place] [phone] 11/15/2023 8:20 AM CDT Office Visit Department of Oncology in [address] [address] Manjit Velasquez APRN, C.N.P., D.N.P. [address] [place] [phone] 11/15/2023 9:30 AM CDT Comprehensive Visit Department of Palliative Care in [address] [address] Patty Gomez APRN, C.N.P., M.S.N. [address] [place] [address] 11/15/2023 2:15 PM CDT Infusion Department of Oncology in [address] [address] Loyda Lennon M.D. [address] [place] [phone] 11/22/2023 7:30 AM CDT Lab Department of Oncology in [place], [place] [address] [place] [phone] Loyda Lennon M.D. [address] [place] [address] 11/22/2023 8:45 AM CDT Infusion Department of Oncology in [place], [place] [address] [place] [phone] Loyda Lennon M.D. [address] [place] [phone] 11/28/2023 3:30 PM CDT Clinical Communication Virtual Review in [place], [place] [address] [place] [address] 11/29/2023 9:00 AM CDT Procedure visit Department of Urology in [place], [place] [address] [place] [phone] Mark Colorado M.D. [facility] [place] [phone] 11/29/2023 11:20 AM CDT Lab Department of Laboratory Medicine and Pathology, [facility], in [place], [place] [address] [place] [phone] Loyda Lennon M.D. [address] [place] [phone] 11/29/2023 11:30 AM CDT Lab Department of Oncology in [place], [place] [address] [place] [phone] Loyda Lennon M.D. [address] [place] [phone] 11/29/2023 1:00 PM CDT Infusion Department of Oncology in [place], [place] [address] [place] [phone] Loyda Lennon M.D. [address] [place] [phone] 12/03/2023 1:45 PM CDT Comprehensive Visit Department of Urology in [place], [place] [address] [place] [phone] Mona Egan P.A.-C. [address] [place] [address] 12/05/2023 1:20 PM CDT Comprehensive Visit Department of Oncology in [place], [place] [address] [place] [phone] Letty Kate M.D. [address] [place] [address] 12/10/2023 3:00 PM CDT Clinical Communication Virtual Review in [place], [place] 200 [place] [address] 12/10/2023 3:30 PM CDT Procedure visit Department of Urology in [place], [place] [address] [place] [phone] Mark Colorado M.D. [address] [place] [address] [place] [address] 12/12/2023 3:45 PM CDT Appointment Department of Radiology, [facility], in [place], [place] [address] [place] [phone] Na Hernandez M.D., Ph.D. [address] [place] [address] 12/13/2023 6:00 AM CDT Lab Department of Laboratory Medicine and Pathology, [facility], in [place], [place] [address] [place] [phone] Loyda Lennon M.D. [address] [place] [phone] 12/13/2023 6:20 AM CDT Lab Department of Infusion Therapy in [place], [place] [address] [place] [phone] Loyda Lennon M.D. [address] [place] [address] 12/13/2023 11:10 AM CDT Office Visit Department of Oncology in [place], [place] [address] [place] [phone] Na Hernandez M.D., Ph.D. [address] [place] [address] 12/13/2023 1:00 PM CDT Infusion Department of Oncology in [address] [address] Loyda Lennon M.D. [address] [place] [address] 12/20/2023 9:20 AM CDT Lab Department of Infusion Therapy in [place], [place] [address] [place] [address] Loyda Lennon M.D. [address] [place] [address] 12/20/2023 10:30 AM CDT Infusion Department of Oncology in [place], [place] [address] [place] [phone] Loyda Lennon M.D. [address] [place] [address] 12/25/2023 10:30 AM CDT Appointment Division of Gastroenterology in [place], [place] [address] [place] [phone] Na Hernandez M.D., Ph.D. [address] [place] [address] 12/27/2023 10:15 AM CDT Lab Department of Oncology in [place], [place] [address] [place] [phone] Loyda Lennon M.D. [address] [place] [address] 12/27/2023 10:30 AM CDT Lab Department of Laboratory Medicine and Pathology, [address] [address] Loyda Lennon M.D. [address] [place] [address] 12/27/2023 11:45 AM CDT Infusion Department of Oncology in [address] [address] Loyda Lennon M.D. [address] [place] [address] 01/03/2024 1:00 PM CDT Clinical Communication Virtual Review in [place], [place] [address] [place] [address] 01/10/2024 8:00 AM CDT Lab Department of Infusion Therapy in [address] [address] Loyda Lennon M.D. [address] [place] [phone] 01/10/2024 8:20 AM CDT Lab Department of Laboratory Medicine and Pathology, [facility] in [place], [place] [address] [place] [phone] Loyda Lennon M.D. [address] [place] [address] 01/10/2024 10:30 AM CDT Office Visit Department of Oncology in [place], [place] [address] [place] [phone] Na Hernandez M.D., Ph.D. [address] [place] [address] 01/10/2024 11:45 AM CDT Infusion Department of Oncology in [place], [place] [address] [place] [phone] Loyda Lennon M.D. [address] [place] [address] 01/17/2024 8:45 AM CDT Lab Department of Oncology in [place], [place] [address] [place] [phone] Loyda Lennon M.D. [address] [place] [address] 01/17/2024 10:00 AM CDT Infusion Department of Oncology in [place], [place] [address] [place] [phone] Loyda Lennon M.D. [address] [place] [address] 01/24/2024 8:00 AM CDT Lab Department of Laboratory Medicine and Pathology, [facility], in [place], [place] [address] [place] [phone] Loyda Lennon M.D. [address] [place] [phone] 01/24/2024 8:15 AM CDT Lab Department of Oncology in [place], [place] [address] [place] [address] Loyda Lennon M.D. [address] [place] [address] 01/24/2024 9:15 AM CDT Infusion Department of Oncology in [place], [place] [address] [place] [address] Loyda Lennon M.D. [address] [place] [address] Scheduled Procedures Name Priority Associated Diagnoses Date/Ti me HEPATECTOMY RESECTION LIVER Cholangiocarcinoma (HCC) ULTRASOUND LIVER Cholangiocarcinoma (HCC) RECONSTRUCTION PORTAL VEIN Cholangiocarcinoma (HCC) documented as of this encounter Visit Diagnoses Diagnosis Cholangiocarcinoma (HCC)- Primary Senior Living Current Drug Therapy, Chemotherapy Peritoneal Carcinomatosis (HCC) Neutropenia Chemotherapy Induced (HCC) documented in this encounter Additional Health Concerns Infection Onset Date Last Indicated Resolved Time Protective Environment 11/07/2022 11/07/2022 documented as of this encounter Care Teams Corporate Attorney Relationship Specialty Start Date End Date Mark Colorado M.D. [facility] [place] [phone] PCP - General Family Medicine 11/09/22 documented as of this encounter
--- OUTSIDE RECORDS SUMMARY | 2023-11-05 22:11 | XMS_ITS | Encounter Summary ---
Author Organization [facility] Address [address] [place] [address] Care Team Providers Care Cell Biology Scientist Name Role Phone Mark Colorado M.D. Primary Care Provider [phone] Encounter Details Date Type Department Care Team (Latest Contact Info) Description 08/27/2023 Orders Only Department of Oncology in [place], [place] [address] [place] [address] Yuko Pennington MPAS, P.A.-C. [address] [place] [phone] Cholangiocarcinoma (HCC) (Primary Dx); Peritoneal Carcinomatosis (HCC); Neutropenia Chemotherapy Induced (HCC); Assisted Current Drug Therapy, Chemotherapy Social History Tobacco [...] living situation today? I have a [facility] live 09/10/2022 Sex [...] PM CDT Clinical Communication Virtual Review in [address] [address] 11/15/2023 6:40 AM CDT Lab Department of Laboratory Medicine and Pathology, [facility], in [address] [address] Loyda Lennon M.D. [address] [place] [phone] 11/15/2023 8:20 AM CDT Office Visit Department of Oncology in [address] [address] Manjit Velasquez APRN, C.N.P., D.N.P. [address] [place] [phone] 11/15/2023 9:30 AM CDT Comprehensive Visit Department of Palliative Care in [address] [address] Patty Gomez APRN, C.N.P., M.S.N. [address] [place] [address] 11/15/2023 2:15 PM CDT Infusion Department of Oncology in [address] [address] Loyda Lennon M.D. [address] [place] [address] 11/22/2023 7:30 AM CDT Lab Department of Oncology in [place], [place] [address] [place] [address] Loyda Lennon M.D. [address] [place] [address] 11/22/2023 8:45 AM CDT Infusion Department of Oncology in [place], [place] [address] [place] [address] Loyda Lennon M.D. [address] [place] [phone] 11/28/2023 3:30 PM CDT Clinical Communication Virtual Review in [place], [place] [address] [place] [address] 11/29/2023 9:00 AM CDT Procedure visit Department of Urology in [address] [address] Mark Colorado M.D. [address] [place] [address] 11/29/2023 11:20 AM CDT Lab Department of Laboratory Medicine and Pathology, [facility], in [place], [place] [address] [place] [phone] Loyda Lennon M.D. [address] [place] [phone] 11/29/2023 11:30 AM CDT Lab Department of Oncology in [place], [place] [address] [place] [address] Loyda Lennon M.D. [address] [place] [phone] 11/29/2023 1:00 PM CDT Infusion Department of Oncology in [place], [place] [address] [place] [address] Loyda Lennon M.D. [address] [place] [address] 12/03/2023 1:45 PM CDT Comprehensive Visit Department of Urology in [place], [place] [address] [place] [phone] Mona Egan, Gurinder-Reva. [address] [place] [address] 12/05/2023 1:20 PM CDT Comprehensive Visit Department of Oncology in [place], [place] [address] [place] [address] Letty Kate M.D. [address] [place] [address] 12/10/2023 3:00 PM CDT Clinical Communication Virtual Review in [place], [place] [address] [place] [address] 12/10/2023 3:30 PM CDT Procedure visit Department of Urology in [place], [place] [address] [place] [phone] Mark Colorado M.D. [facility] [place] [address] 12/12/2023 3:45 PM CDT Appointment Department of Radiology, [facility], in [place], [place] [address] [place] [address] Na Hernandez M.D., Ph.D. [address] [place] [phone] 12/13/2023 6:00 AM CDT Lab Department of Laboratory Medicine and Pathology, [facility], in [place], [place] [address] [place] [address] Loyda Lennon M.D. [address] [place] [address] 12/13/2023 6:20 AM CDT Lab Department of Infusion Therapy in [place], [place] [address] [place] [address] Loyda Lennon M.D. [address] [place] [address] 12/13/2023 11:10 AM CDT Office Visit Department of Oncology in [address] [address] Na Hernandez M.D., Ph.D. [address] [place] [address] 12/13/2023 1:00 PM CDT Infusion Department of Oncology in [address] [address] Loyda Lennon M.D. [address] [place] [address] 12/20/2023 9:20 AM CDT Lab Department of Infusion Therapy in [address] [address] Loyda Lennon M.D. [address] [place] [address] 12/20/2023 10:30 AM CDT Infusion Department of Oncology in [address] [address] Loyda Lennon M.D. [address] [place] [address] 12/25/2023 10:30 AM CDT Appointment Division of Gastroenterology in [place], [place] [address] [place] [phone] Na Hernandez M.D., Ph.D. [address] [place] [phone] 12/27/2023 10:15 AM CDT Lab Department of Oncology in [place], [place] [address] [place] [address] Loyda Lennon M.D. [address] [place] [address] 12/27/2023 10:30 AM CDT Lab Department of Laboratory Medicine and Pathology, [facility] in [place], [place] [address] [place] [address] Loyda Lennon M.D. [address] [place] [address] 12/27/2023 11:45 AM CDT Infusion Department of Oncology in [place], [place] [address] [place] [phone] Loyda Lennon M.D. [address] [place] [address] 01/03/2024 1:00 PM CDT Clinical Communication Virtual Review in [place], [place] [address] [place] [address] 01/10/2024 8:00 AM CDT Lab Department of Infusion Therapy in [place], [place] [address] [place] [address] Loyda Lennon M.D. [address] [place] [address] 01/10/2024 8:20 AM CDT Lab Department of Laboratory Medicine and Pathology, [facility] in [place], [place] [address] [place] [phone] Loyda Lennon M.D. [address] [place] [address] 01/10/2024 10:30 AM CDT Office Visit Department of Oncology in [place], [place] [address] [place] [address] Na Hernandez M.D., Ph.D. [address] [place] [address] 01/10/2024 11:45 AM CDT Infusion Department of Oncology in [place], [place] [address] [place] [address] Loyda Lennon M.D. [address] [place] [address] 01/17/2024 8:45 AM CDT Lab Department of Oncology in [place], [place] [address] [place] [phone] Loyda Lennon M.D. [address] [place] [address] 01/17/2024 10:00 AM CDT Infusion Department of Oncology in [place], [place] [address] [place] [address] Loyda Lennon M.D. [address] [place] [address] 01/24/2024 8:00 AM CDT Lab Department of Laboratory Medicine and Pathology, [facility], in [place], [place] [address] [place] [address] Loyda Lennon M.D. [address] [place] [address] 01/24/2024 8:15 AM CDT Lab Department of Oncology in [place], [place] [address] [place] [address] Loyda Lennon M.D. [address] [place] [phone] 01/24/2024 9:15 AM CDT Infusion Department of Oncology in [place], [place] [address] [place] [address] Loyda Lennon M.D. [address] [place] [phone] Scheduled Procedures Name Priority Associated Diagnoses Date/Ti me HEPATECTOMY RESECTION LIVER Cholangiocarcinoma (HCC) ULTRASOUND LIVER Cholangiocarcinoma (HCC) RECONSTRUCTION PORTAL VEIN Cholangiocarcinoma (HCC) documented as of this encounter Visit Diagnoses Diagnosis Cholangiocarcinoma (HCC)- Primary Peritoneal Carcinomatosis (HCC) Neutropenia Chemotherapy Induced (HCC) Rv Mechanic Current Drug Therapy, Chemotherapy documented in this encounter Additional Health Concerns Infection Onset Date Last Indicated Resolved Time Protective Environment 11/07/2022 11/07/2022 documented as of this encounter Care Teams Cell Biology Scientist Relationship Specialty Start Date End Date Mark Colorado M.D. [address] [place] [address] PCP - General Family Medicine 11/09/22 documented as of this encounter
--- OUTSIDE RECORDS SUMMARY | 2023-11-05 22:11 | XMS_ITS | Encounter Summary ---
Author Organization [facility] Address [address] [place] [address] Care Team Providers Care Turfgrass Management Professor Name Role Phone Mark Colorado M.D. Primary Care Provider [phone] Encounter Details Date Type Department Care Team (Latest Contact Info) Description 08/20/2023 Orders Only Department of Oncology in [place], [place] [address] [place] [address] Karen Burger Cholangiocarcinoma (HCC) (Primary Dx); Checker Loader Current Drug Therapy, Chemotherapy; Peritoneal Carcinomatosis (HCC); [...] living situation today? I have a [facility] place to live 09/10/2022 Sex and [...] Communication Virtual Review in [place], [place] [address] [place] [address] 11/15/2023 6:40 AM CDT Lab Department of Laboratory Medicine and Pathology, [facility] in [address] [address] Loyda Lennon M.D. [address] [place] [address] 11/15/2023 8:20 AM CDT Office Visit Department of Oncology in [address] [address] Manjit Velasquez APRN, C.N.P., D.N.P. [address] [place] [address] 11/15/2023 9:30 AM CDT Comprehensive Visit Department of Palliative Care in [address] [address] Patty Gomez APRN, C.N.P., M.S.N. [address] [place] [address] 11/15/2023 2:15 PM CDT Infusion Department of Oncology in [address] [address] Loyda Lennon M.D. [address] [place] [address] 11/22/2023 7:30 AM CDT Lab Department of Oncology in [place], [place] [address] [place] [phone] Loyda Lennon M.D. [address] [place] [address] 11/22/2023 8:45 AM CDT Infusion Department of Oncology in [place], [place] [address] [place] [address] Loyda Lennon M.D. [address] [place] [address] 11/28/2023 3:30 PM CDT Clinical Communication Virtual Review in [place], [place] [address] [place] [address] 11/29/2023 9:00 AM CDT Procedure visit Department of Urology in [place], [place] [address] [place] [address] Mark Colorado M.D. [facility] [place] [phone] 11/29/2023 11:20 AM CDT Lab Department of Laboratory Medicine and Pathology, [facility], in [place], [place] [address] [place] [phone] Loyda Lennon M.D. [address] [place] [address] 11/29/2023 11:30 AM CDT Lab Department of Oncology in [place], [place] [address] [place] [address] Loyda Lennon M.D. [address] [place] [address] 11/29/2023 1:00 PM CDT Infusion Department of Oncology in [place], [place] [address] [place] [address] Loyda Lennon M.D. [address] [place] [address] 12/03/2023 1:45 PM CDT Comprehensive Visit Department of Urology in [place], [place] [address] [place] [phone] Mona Egan P.A.-C. [address] [place] [address] 12/05/2023 1:20 PM CDT Comprehensive Visit Department of Oncology in [place], [place] [address] [place] [phone] Letty Kate M.D. [address] [place] [address] 12/10/2023 3:00 PM CDT Clinical Communication Virtual Review in [place], [place] [address] [place] [address] 12/10/2023 3:30 PM CDT Procedure visit Department of Urology in [place], [place] [address] [place] [address] Mark Colorado M.D. [address] [place] [address] [place] [address] 12/12/2023 3:45 PM CDT Appointment Department of Radiology, [facility], in [place], [place] [address] [place] [phone] Na Hernandez M.D., Ph.D. [address] [place] [address] 12/13/2023 6:00 AM CDT Lab Department of Laboratory Medicine and Pathology, [facility], in [place], [place] [address] [place] [phone] Loyda Lennon M.D. [address] [place] [address] 12/13/2023 6:20 AM CDT Lab Department of Infusion Therapy in [place], [place] [address] [place] [address] Loyda Lennon M.D. [address] [place] [address] 12/13/2023 11:10 AM CDT Office Visit Department of Oncology in [place], [place] [address] [place] [address] Na Hernandez M.D., Ph.D. [address] [place] [address] 12/13/2023 1:00 PM CDT Infusion Department of Oncology in [address] [address] Loyda Lennon M.D. [address] [place] [address] 12/20/2023 9:20 AM CDT Lab Department of Infusion Therapy in [place], [place] [address] [place] [address] Loyda Lennon M.D. [address] [place] [address] 12/20/2023 10:30 AM CDT Infusion Department of Oncology in [place], [place] [address] [place] [address] Loyda Lennon M.D. [address] [place] [address] 12/25/2023 10:30 AM CDT Appointment Division of Gastroenterology in [place], [place] [address] [place] [phone] Na Hernandez M.D., Ph.D. [address] [place] [address] 12/27/2023 10:15 AM CDT Lab Department of Oncology in [place], [place] [address] [place] [address] Loyda Lennon M.D. [address] [place] [address] 12/27/2023 10:30 AM CDT Lab Department of Laboratory Medicine and Pathology, [address] [address] Loyda Lennon M.D. [address] [place] [address] 12/27/2023 11:45 AM CDT Infusion Department of Oncology in [address] [address] Loyda Lennon M.D. [address] [place] [phone] 01/03/2024 1:00 PM CDT Clinical Communication Virtual Review in [place], [place] [address] [place] [address] 01/10/2024 8:00 AM CDT Lab Department of Infusion Therapy in [address] [address] Loyda Lennon M.D. [address] [place] [address] 01/10/2024 8:20 AM CDT Lab Department of Laboratory Medicine and Pathology, [facility] in [place], [place] [address] [place] [address] Loyda Lennon M.D. [address] [place] [address] 01/10/2024 10:30 AM CDT Office Visit Department of Oncology in [place], [place] [address] [place] [address] Na Hernandez M.D., Ph.D. [address] [place] [address] 01/10/2024 11:45 AM CDT Infusion Department of Oncology in [place], [place] [address] [place] [address] Loyda Lennon M.D. [address] [place] [address] 01/17/2024 8:45 AM CDT Lab Department of Oncology in [place], [place] [address] [place] [phone] Loyda Lennon M.D. [address] [place] [address] 01/17/2024 10:00 AM CDT Infusion Department of Oncology in [place], [place] [address] [place] [address] Loyda Lennon M.D. [address] [place] [address] 01/24/2024 8:00 AM CDT Lab Department of Laboratory Medicine and Pathology, [facility], in [place], [place] [address] [place] [phone] Loyda Lennon M.D. [address] [place] [address] 01/24/2024 8:15 AM CDT Lab Department of Oncology in [place], [place] [address] [place] [address] Loyda Lennon M.D. [address] [place] [address] 01/24/2024 9:15 AM CDT Infusion Department of Oncology in [place], [place] [address] [place] [address] Loyda Lennon M.D. [address] [place] [address] Scheduled Procedures Name Priority Associated Diagnoses Date/Ti me HEPATECTOMY RESECTION LIVER Cholangiocarcinoma (HCC) ULTRASOUND LIVER Cholangiocarcinoma (HCC) RECONSTRUCTION PORTAL VEIN Cholangiocarcinoma (HCC) documented as of this encounter Visit Diagnoses Diagnosis Cholangiocarcinoma (HCC)- Primary Retirement Current Drug Therapy, Chemotherapy Peritoneal Carcinomatosis (HCC) Neutropenia Chemotherapy Induced (HCC) documented in this encounter Additional Health Concerns Infection Onset Date Last Indicated Resolved Time Protective Environment 11/07/2022 11/07/2022 documented as of this encounter Care Teams Turfgrass Management Professor Relationship Specialty Start Date End Date Mark Colorado M.D. [facility] [place] [address] PCP - General Family Medicine 11/09/22 documented as of this encounter
--- OUTSIDE RECORDS SUMMARY | 2023-11-05 22:11 | XMS_ITS | Encounter Summary ---
Author Organization [facility] Address [address] [place] [address] Care Team Providers Care Pattern Gater Name Role Phone Mark Colorado M.D. 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 [address] [place] [address] Rst Onc Cruz [address] [place] [address] Referral ID Status Reason Start Date Expiration Date V isits Requested Visits Authorized [id number] Authorized 03/11/2023 03/31/2024 31 99 Encounter Details Date Type Department Care Team (Late st Contact Info) Description 08/27/2023 8:45 AM CDT Lab Department of Oncology in [place], [place] [address] [place] [address] Yuko Pennington MPAS, P.A.-C. [address] [place] [phone] Pure Hypercholesterolemia (Primary Dx); Cholangiocarcinoma (HCC) Social [...] your living situation today? I have a [facility] place to live 09/10/2022 Sex and Gender Information Value Date Recorded Sex Assigned at Male 09/10/2022 12:02 PM CDT Gender Identity Male 09/10/2022 12:02 PM CDT Sexual Orientation Straight 09/10/2022 12 :02 PM CDT documented as of this encounter Plan of Treatment Upcoming Encounters Date Type Department Care Team (Latest Contact Info) Description 11/07/2023 3:15 PM CDT Clinical Communication Virtual Review in [place], [place] [address] [place] [address] 11/15/2023 6:40 AM CDT Lab Department of Laboratory Medicine and Pathology, [facility] in [place], [place] [address] [place] [phone] Loyda Lennon M.D. [address] [place] [phone] 11/15/2023 8:20 AM CDT Office Visit Department of Oncology in [place], [place] [address] [place] [phone] Manjit Velasquez, KAYLEE, C.N.P., D.N.P. [address] [place] [phone] 11/15/2023 9:30 AM CDT Comprehensive Visit Department of Palliative Care in [place], [place] [address] [place] [phone] Patty Gomez APRN, C.N.P., M.S.N. [address] [place] [phone] 11/15/2023 2:15 PM CDT Infusion Department of Oncology in [place], [place] [address] [place] [phone] Loyda Lennon M.D. [address] [place] [phone] 11/22/2023 7:30 AM CDT Lab Department of Oncology in [place], [place] [address] [place] [phone] Loyda Lennon M.D. [address] [place] [phone] 11/22/2023 8:45 AM CDT Infusion Department of Oncology in [place], [place] [address] [place] [phone] Loyda Lennon M.D. [address] [place] [phone] 11/28/2023 3:30 PM CDT Clinical Communication Virtual Review in [place], [place] [address] [place] [address] 11/29/2023 9:00 AM CDT Procedure visit Department of Urology in [place], [place] [address] [place] [phone] Mark Colorado M.D. [address] [place] [address] [place] [phone] 11/29/2023 11:20 AM CDT Lab Department of Laboratory Medicine and Pathology, [facility], in [place], [place] [address] [place] [phone] Loyda Lennon M.D. [address] [place] [phone] 11/29/2023 11:30 AM CDT Lab Department of Oncology in [place], [place] [address] [place] [phone] Loyda Lennon M.D. [address] [place] [phone] 11/29/2023 1:00 PM CDT Infusion Department of Oncology in [place], [place] [address] [place] [phone] Loyda Lennon M.D. [address] [place] [phone] 12/03/2023 1:45 PM CDT Comprehensive Visit Department of Urology in [address] [phone] Mona Egan, PLillian-Sara [address] [place] [phone] 12/05/2023 1:20 PM CDT Comprehensive Visit Department of Oncology in [address] [phone] Letty Kate M.D. [address] [place] [phone] 12/10/2023 3:00 PM CDT Clinical Communication Virtual Review in [place], [place] [address] [place] [address] 12/10/2023 3:30 PM CDT Procedure visit Department of Urology in [place], [place] [address] [place] [phone] Mark Colorado M.D. [address] [place] [address] [place] [phone] 12/12/2023 3:45 PM CDT Appointment Department of Radiology, [facility], in [place], [place] [address] [place] [phone] Na Hernandez M.D., Ph.D. [address] [place] [phone] 12/13/2023 6:00 AM CDT Lab Department of Laboratory Medicine and Pathology, [facility] in [place], [place] [address] [place] [phone] Loyda Lennon M.D. [address] [place] [phone] 12/13/2023 6:20 AM CDT Lab Department of Infusion Therapy in [place], [place] [address] [place] [phone] Loyda Lennon M.D. [address] [place] [phone] 12/13/2023 11:10 AM CDT Office Visit Department of Oncology in [place], [place] [address] [place] [phone] Na Hernandez M.D., Ph.D. [address] [place] [phone] 12/13/2023 1:00 PM CDT Infusion Department of Oncology in [place], [place] [address] [place] [phone] Loyda Lennon M.D. [address] [place] [phone] 12/20/2023 9:20 AM CDT Lab Department of Infusion Therapy in [place], [place] [address] [place] [phone] Loyda Lennon M.D. [address] [place] [phone] 12/20/2023 10:30 AM CDT Infusion Department of Oncology in [place], [place] [address] [place] [phone] Loyda Lennon M.D. [address] [place] [phone] 12/25/2023 10:30 AM CDT Appointment Division of Gastroenterology in [address] [phone] Na Hernandez M.D., Ph.D. [address] [place] [phone] 12/27/2023 10:15 AM CDT Lab Department of Oncology in [place], [place] [address] [place] [phone] Loyda Lennon M.D. [address] [place] [phone] 12/27/2023 10:30 AM CDT Lab Department of Laboratory Medicine and Pathology, [facility], in [place], [place] [address] [place] [phone] Loyda Lennon M.D. [address] [place] [phone] 12/27/2023 11:45 AM CDT Infusion Department of Oncology in [address] [phone] Loyda Lennon M.D. [address] [place] [phone] 01/03/2024 1:00 PM CDT Clinical Communication Virtual Review in [place], [place] [address] [place] [address] 01/10/2024 8:00 AM CDT Lab Department of Infusion Therapy in [place], [place] [address] [place] [phone] Loyda Lennon M.D. [address] [place] [phone] 01/10/2024 8:20 AM CDT Lab Department of Laboratory Medicine and Pathology, [facility] in [address] [phone] Loyda Lennon M.D. [address] [place] [phone] 01/10/2024 10:30 AM CDT Office Visit Department of Oncology in [address] [phone] Na Hernandez M.D., Ph.D. [address] [place] [phone] 01/10/2024 11:45 AM CDT Infusion Department of Oncology in [address] [phone] Loyda Lennon M.D. [address] [place] [phone] 01/17/2024 8:45 AM CDT Lab Department of Oncology in [address] [phone] Loyda Lennon M.D. [address] [place] [phone] 01/17/2024 10:00 AM CDT Infusion Department of Oncology in [place], [place] [address] [place] [phone] Loyda Lennon M.D. [address] [place] [phone] 01/24/2024 8:00 AM CDT Lab Department of Laboratory Medicine and Pathology, [facility] in [place], [place] [address] [place] [phone] Loyda Lennon M.D. [address] [place] [phone] 01/24/2024 8:15 AM CDT Lab Department of Oncology in [place], [place] [address] [place] [phone] Loyda Lennon M.D. [address] [place] [phone] 01/24/2024 9:15 AM CDT Infusion Department of Oncology in [place], [place] [address] [place] [phone] Loyda Lennon M.D. [address] [place] [phone] Scheduled Procedures Name Priority Associated Diagnoses Date/Ti me HEPATECTOMY RESECTION LIVER Cholangiocarcinoma (HCC) ULTRASOUND LIVER Cholangiocarcinoma (HCC) RECONSTRUCTION PORTAL VEIN Cholangiocarcinoma (HCC) documented as of this encounter Procedures Procedure Name Priority Date/Time Associated Diagnosis Comments TROPONIN I, HIGH SENSITIVITY, P Routine 08/27/2023 9:05 AM CDT Cholangiocarcinoma (HCC) NT-PRO B-TYPE NATRIURETIC [...] Routine 08/27/2023 9:05 AM CDT Cholangiocarcinoma (HCC) documented in this encounter Results * NT-Pro B-Type Natriuretic Peptide (BNP) (08/27/2023 9:05 AM CDT) NT-Pro BNP 98 <=540 pg/mL 08/27/2023 12:06 PM CDT DTL Comment: NT-proBNP values less than [...] absence of renal failure. Blood (Blood, Venous) 08/27/2023 9:05 AM CDT 08/27/2023 9:32 AM CDT Yuko LIU, P.A.-C. LAB BLOO D ADD-ON [facility] [address] [place] [address], [facility] [address] [place] [address] * Troponin I, High Sensitivity (08/27/2023 9:05 AM CDT) TROPONIN I, HIGH SENSITIVITY, P 6 <=20 ng/L 08/27/2023 12:35 PM CDT DTL Blood (Blood, Venous) 08/27/2023 9:05 AM CDT 08/27/2023 9:32 AM CDT Yuko LIU P.A.-C. LAB BLOO D NON ADD-ON [facility] [address] [place] [address], [facility] [address] [place] [address] * Lipase (08/27/2023 9:05 AM CDT) Lipase, S 46 13 - 60 U/L 08/27/2023 12:06 PM CDT DTL Blood (Blood, Venous) 08/27/2023 9:05 AM CDT 08/27/2023 9:32 AM CDT Yuko LIU P.A.-C. LAB BLOO D ADD-ON [facility] [address] [place] [address], [facility] [address] [place] [address] * Amylase, Total (08/27/2023 9:05 AM CDT) Amylase, Total, S 48 28 - 100 U/L 08/27/2023 12:06 PM CDT DTL Blood (Blood, Venous) 08/27/2023 9:05 AM CDT 08/27/2023 9:32 AM CDT Yuko LIU P.A.-C. LAB BLOO D ADD-ON [facility] 200 [place] [address], [facility] [address] [place] [address] * Phosphorus Inorganic (08/27/2023 9:05 AM CDT) Phosphorus (Inorganic), S 2.6 2.5 - 4.5 mg/dL 08/27/2023 12:06 PM CDT DTL Blood (Blood, Venous) 08/27/2023 9:05 AM CDT 08/27/2023 9:32 AM CDT Yuko LIU P.A.-C. LAB BLOO D ADD-ON Performing Organization Address City/[facility]/ZIP Co de Phone Number [facility] [address] [place] [address], [facility] [address] [place] [address] * Magnesium (08/27/2023 9:05 AM CDT) Pathologist [facility] Magnesium, S 2.1 1.7 - 2.3 mg/dL 08/27/2023 12:06 PM CDT DTL Blood (Blood, Venous) 08/27/2023 9:05 AM CDT 08/27/2023 9:32 AM CDT Yuko LIU P.A.-C. LAB BLOO D ADD-ON [facility] [address] [place] [address] * Uric Acid (08/27/2023 9:05 AM CDT) Uric Acid, S 5.2 3.7 - 8.0 mg/dL 08/27/2023 12:06 PM CDT DTL Blood (Blood, Venous) 08/27/2023 9:05 AM CDT 08/27/2023 9:32 AM CDT Fela Moore.A.-C. LAB BLOO D ADD-ON [facility] [address] [place] [address], [facility] [address] [place] [address] * LD (Lactate Dehydrogenase) (08/27/2023 9:05 AM CDT) [facility] LD 173 122 - 222 U/L 08/27/2023 10:57 AM CDT DTL Blood (Blood, Venous) 08/27/2023 9:05 AM CDT 08/27/2023 10:03 AM CDT Fela Moore.A.-C. LAB BLOO D NON ADD-ON [facility] [address] [place] [address], [facility] [address] [place] [address] * (ABNORMAL) Comprehensive Metabolic Panel (08/27/2023 9:05 AM CDT) [facility] Potassium, S 4.7 3.6 - 5.2 mmol/L 08/27/2023 12:06 PM CDT DTL Sodium, S 138 135 - 145 mmol/L 08/27/2023 12:06 PM CDT DTL Chloride, S 108(H) 98 - 107 mmol/L 08/27/2023 12:06 PM CDT DTL Bicarbonate, S 22 22 - 29 mmol/L 08/27/2023 12:06 PM CDT DTL Anion Gap 8 7 - 15 08/27/2023 12:06 PM CDT DTL BUN (Blood Urea Nitrogen), S 26(H) 8 - 24 mg/dL 08/27/2023 12:06 PM CDT DTL Creatinine 1.25 0.74 - 1.35 mg/dL 08/27/2023 12:06 PM CDT DTL Estimated GFR (eGFR) 62 >=60 mL/min/BS A 08/27/2023 12:06 PM CDT DTL Comment: Estimated GFR calculated using the 2020 CKD_EPI creatinine equation. Calcium, Total, S 8.4(L) 8.8 - 10.2 mg/dL 08/27/2023 12:06 PM CDT DTL Glucose, S 89 70 - 140 mg/dL 08/27/2023 12:06 PM CDT DTL Protein, Total, S 6.0(L) 6.3 - 7.9 g/dL 08/27/2023 12:06 PM CDT DTL Albumin, S 3.7 3.5 - 5.0 g/dL 08/27/2023 12:06 PM CDT DTL Aspartate Aminotransferase (AST), S 21 8 - 48 U/L 08/27/2023 12:06 PM CDT DTL Alkaline Phosphatase, S 81 40 - 129 U/L 08/27/2023 12:06 PM CDT DTL Alanine Aminotransferase (ALT), S 21 7 - 55 U/L 08/27/2023 12:06 PM CDT DTL Bilirubin, Total, S 0.3 0.0 - 1.2 mg/dL 08/27/2023 12:06 PM CDT DTL Blood (Blood, Venous) 08/27/2023 9:05 AM CDT 08/27/2023 9:32 AM CDT Yuko LIU, P.A.BrittneyC. LAB BLOO D ADD-ON [facility] [address] [place] [address], [facility] [address] [place] [address] * (ABNORMAL) CBC with Differential, Blood (08/27/2023 9:05 AM CDT) Hemoglobin 9.7(L) 13.2 - 16.6 g/dL 08/27/2023 10:17 AM CDT DTL Hematocrit 29.5(L) 38.3 - 48.6 % 08/27/2023 10:17 AM CDT DTL Erythrocytes 2.97(L) 4.35 - 5.65 x10(12)/L 08/27/2023 10:17 AM CDT DTL MCV 99.3(H) 78.2 - 97.9 fL 08/27/2023 10:17 AM CDT DTL RBC Distrib Width 15.3(H) 11.8 - 14.5 % 08/27/2023 10:17 AM CDT DTL Platelet Count 155 135 - 317 x10(9)/L 08/27/2023 10:17 AM CDT DTL Leukocytes 2.0(L) 3.4 - 9.6 x10(9)/L 08/27/2023 10:17 AM CDT DTL Neutrophils 1.04(L) 1.56 - 6.45 x10(9)/L 08/27/2023 10:17 AM CDT DHPM Lymphocytes 0.59(L) 0.95 - 3.07 x10(9)/L 08/27/2023 10:17 AM CDT DTL Monocytes 0.19(L) 0.26 - 0.81 x10(9)/L 08/27/2023 10:17 AM CDT DTL Eosinophils 0.16 0.03 - 0.48 x10(9)/L 08/27/2023 10:17 AM CDT DTL Basophils 0.03 0.01 - 0.08 x10(9)/L 08/27/2023 10:17 AM CDT DTL Blood (Blood, Venous) 08/27/2023 9:05 AM CDT 08/27/2023 9:23 AM CDT Yuko LIU PHoldenASteve. LAB BLOO D ADD-ON [facility] [address] [place], [place] [address] DTL [facility] [address] [place] [address] [facility] [address] [place] [address] documented in this encounter Visit Diagnoses Diagnosis Pure Hypercholesterolemia- Primary Cholangiocarcinoma (HCC) documented in this encounter Administered Medications Inactive Administered Medications - up to 3 most recent administrations Medication Order MAR Action Action Date Dose Rate Site heparin flush 500 Units 500 Units, intra-catheter, As needed, line care, Starting on Sat08/27/23 at 0852, When IVAD accessed and not infusing: When no infusion to maintain patency flush every 7 days following NaCL flush. 5 mL (500 units) of Heparin 100 units/mL to each port/lumen. When IVAD not accessed or infusing: When no infusion to maintain patency flush every 28 days following NaCL flush. 5 mL (500 units) of Heparin 100 units/mL to each port/lumen. Given 08/27/2023 9:09 AM CDT 500 Units sodium chloride 0.9 % injection 10-20 mL 10-20 mL, intra-catheter, As needed, line care, Starting on Sat08/27/23 at 0852, When IVAD accessed and infusing: Flush prior to and following infusion, between multiple consecutive infusions. 10 mL to each port/lumen. Given 08/27/2023 9:09 AM CDT 10 mL sodium chloride 0.9 % injection 20-40 mL 20-40 mL, intra-catheter, As needed, line care, Starting on Sat08/27/23 at 0852, When IVAD accessed and infusing: Flush prior to blood sampling, post blood transfusion or post blood sampling. 20 mL to each port/lumen. Given 08/27/2023 9:09 AM CDT 20 mL documented in this encounter Additional Health Concerns Infection Onset Date Last Indicated Resolved Time Protective Environment 11/07/2022 11/07/2022 documented as of this encounter Care Teams Pattern Gater Relationship Specialty Start Date End Date Mark [place] M.D. NPJono: [phone] [id number] [place] [address] PCP - General Family Medicine 11/09/22 documented as of this encounter
--- OUTSIDE RECORDS SUMMARY | 2023-11-05 22:11 | XMS_ITS | Encounter Summary ---
Author Organization [facility] Address [address] [place] [address] Care Team Providers Care Bar Machine Operator Multiple Spindle Name Role Phone Mark Colorado M.D. Primary Care Provider [phone] Reason for Visit * Episode Based Medications (Routine) - Authorized Specialty Diagnoses / Procedures Referred By Contac t Referred To Contact Diagnoses Cholangiocarcinoma (HCC) Assisted Current Drug Therapy, Chemotherapy Peritoneal Carcinomatosis (HCC) Neutropenia Chemotherapy Induced (HCC) Procedures AR ONDANSETRON HCL INJECTION AR PACLITAXEL INJECTION AR INJECTION, DARINEL ONC Yuko Pennington MPAS, P.A.-C. [address] [place] [address] Rst Onc Cruz [address] [place] [address] Referral ID Status Reason Start Date Expiration Date V isits Requested Visits Authorized [id number] Authorized 03/11/2023 03/31/2024 31 99 Encounter Details Date Type Department Care Team (Late st Contact Info) Description 08/29/2023 11:30 AM CDT Infusion Department of Oncology in [place], [place] [address] [place] [address] Yuko Pennington MPAS, P.A.-C. [address] [place] [phone] Data Designer Current Drug Therapy, Chemotherapy (Primary Dx); Cholangiocarcinoma [...] your living situation today? I have a [facility] place to live 09/10/2022 Sex and Gender Information Value Date Recorded Sex Assigned at Male 09/10/2022 12:02 PM CDT Gender Identity Male 09/10/2022 12:02 PM CDT Sexual Orientation Straight 09/10/2022 12 :02 PM CDT documented as of this encounter Plan of Treatment Upcoming Encounters Date Type Department Care Team (Latest Contact Info) Description 11/07/2023 3:15 PM CDT Clinical Communication Virtual Review in [place], [place] 200 [place] [address] 11/15/2023 6:40 AM CDT Lab Department of Laboratory Medicine and Pathology, [facility], in [place], [place] [address] [place] [phone] Loyda Lennon M.D. [address] [place] [phone] 11/15/2023 8:20 AM CDT Office Visit Department of Oncology in [place], [place] [address] [place] [phone] Manjit Velasquez APRN, C.N.P., D.N.P. [address] [place] [phone] 11/15/2023 9:30 AM CDT Comprehensive Visit Department of Palliative Care in [place], [place] [address] [place] [phone] Patty Gomez APRN, C.N.P., M.S.N. [address] [place] [phone] 11/15/2023 2:15 PM CDT Infusion Department of Oncology in [place], [place] [address] [place] [phone] Loyda Lennon M.D. [address] [place] [phone] 11/22/2023 7:30 AM CDT Lab Department of Oncology in [place], [place] [address] [place] [phone] Loyda Lennon M.D. [address] [place] [phone] 11/22/2023 8:45 AM CDT Infusion Department of Oncology in [place], [place] [address] [place] [phone] Loyda Lennon M.D. [address] [place] [phone] 11/28/2023 3:30 PM CDT Clinical Communication Virtual Review in [place], [place] [address] [place] [address] 11/29/2023 9:00 AM CDT Procedure visit Department of Urology in [place], [place] [address] [place] [phone] Mark Colorado M.D. [address] [place] [address] 11/29/2023 11:20 AM CDT Lab Department of Laboratory Medicine and Pathology, [facility], in [place], [place] [address] [place] [phone] Loyda Lennon M.D. [address] [place] [phone] 11/29/2023 11:30 AM CDT Lab Department of Oncology in [place], [place] [address] [place] [phone] Loyda Lennon M.D. [address] [place] [address] 11/29/2023 1:00 PM CDT Infusion Department of Oncology in [place], [place] [address] [place] [phone] Loyda Lennon M.D. [address] [place] [address] 12/03/2023 1:45 PM CDT Comprehensive Visit Department of Urology in [address] [address] Mona Egan, PHoldenA.-CHolden [address] [place] [address] 12/05/2023 1:20 PM CDT Comprehensive Visit Department of Oncology in [place], [place] [address] [place] [phone] Letty Kate M.D. [address] [place] [phone] 12/10/2023 3:00 PM CDT Clinical Communication Virtual Review in [place], [place] [address] [place] [address] 12/10/2023 3:30 PM CDT Procedure visit Department of Urology in [place], [place] [address] [place] [phone] Mark Colorado M.D. [address] [place] [address] 12/12/2023 3:45 PM CDT Appointment Department of Radiology, [facility], in [place], [place] [address] [place] [address] Na Hernandez M.D., Ph.D. [address] [place] [phone] 12/13/2023 6:00 AM CDT Lab Department of Laboratory Medicine and Pathology, [facility] in [place], [place] [address] [place] [phone] Loyda Lennon M.D. [address] [place] [phone] 12/13/2023 6:20 AM CDT Lab Department of Infusion Therapy in [place], [place] [address] [place] [phone] Loyda Lennon M.D. [address] [place] [address] 12/13/2023 11:10 AM CDT Office Visit Department of Oncology in [place], [place] [address] [place] [phone] Na Hernandez M.D., Ph.D. [address] [place] [phone] 12/13/2023 1:00 PM CDT Infusion Department of Oncology in [place], [place] [address] [place] [phone] Loyda Lennon M.D. [address] [place] [phone] 12/20/2023 9:20 AM CDT Lab Department of Infusion Therapy in [place], [place] [address] [place] [phone] Loyda Lennon M.D. [address] [place] [address] 12/20/2023 10:30 AM CDT Infusion Department of Oncology in [place], [place] [address] [place] [phone] Loyda Lennon M.D. [address] [place] [address] 12/25/2023 10:30 AM CDT Appointment Division of Gastroenterology in [place], [place] [address] [place] [phone] Na Hernandez M.D., Ph.D. [address] [place] [phone] 12/27/2023 10:15 AM CDT Lab Department of Oncology in [address] [address] Loyda Lennon M.D. [address] [place] [phone] 12/27/2023 10:30 AM CDT Lab Department of Laboratory Medicine and Pathology, [facility], in [place], [place] [address] [place] [phone] Loyda Lennon M.D. [address] [place] [address] 12/27/2023 11:45 AM CDT Infusion Department of Oncology in [place], [place] [address] [place] [phone] Loyda Lennon M.D. [address] [place] [address] 01/03/2024 1:00 PM CDT Clinical Communication Virtual Review in [place], [place] [address] [place] [address] 01/10/2024 8:00 AM CDT Lab Department of Infusion Therapy in [place], [place] [address] [place] [phone] Loyda Lennon M.D. [address] [place] [phone] 01/10/2024 8:20 AM CDT Lab Department of Laboratory Medicine and Pathology, [facility], in [place], [place] [address] [place] [phone] Loyda Lennon M.D. [address] [place] [address] 01/10/2024 10:30 AM CDT Office Visit Department of Oncology in [place], [place] [address] [place] [phone] Na Hernandez M.D., Ph.D. [address] [place] [address] 01/10/2024 11:45 AM CDT Infusion Department of Oncology in [place], [place] [address] [place] [phone] Loyda Lennon M.D. [address] [place] [phone] 01/17/2024 8:45 AM CDT Lab Department of Oncology in [place], [place] [address] [place] [phone] Loyda Lennon M.D. [address] [place] [address] 01/17/2024 10:00 AM CDT Infusion Department of Oncology in [place], [place] [address] [place] [phone] Loyda Lennon M.D. [address] [place] [address] 01/24/2024 8:00 AM CDT Lab Department of Laboratory Medicine and Pathology, [facility] in [place], [place] [address] [place] [phone] Loyda Lennon M.D. [address] [place] [phone] 01/24/2024 8:15 AM CDT Lab Department of Oncology in [place], [place] [address] [place] [phone] Loyda Lennon M.D. [address] [place] [address] 01/24/2024 9:15 AM CDT Infusion Department of Oncology in [place], [place] [address] [place] [phone] Loyda Lennon M.D. [address] [place] [phone] Scheduled Procedures Name Priority Associated Diagnoses Date/Ti nd HEPATECTOMY RESECTION LIVER Cholangiocarcinoma (HCC) ULTRASOUND LIVER Cholangiocarcinoma (HCC) RECONSTRUCTION PORTAL VEIN Cholangiocarcinoma (HCC) documented as of this encounter Visit Diagnoses Diagnosis Data Designer Current Drug Therapy, Chemotherapy- Primary Cholangiocarcinoma (HCC) Peritoneal Carcinomatosis (HCC) Neutropenia Chemotherapy Induced (HCC) documented in this encounter Administered Medications Inactive Administered Medications - up to 3 most recent administrations Medication Order MAR Action Action Date Dose Rate Site pegfilgrastim-jmdb injection 6 mg (FULPHILA) 6 mg, subcutaneous, Once, On Sat08/29/23 at 1200, For 1 dose Given 08/29/2023 11:40 AM CDT 6 mg Right Upper Abdomen documented in this encounter Additional Health Concerns Infection Onset Date Last Indicated Resolved Time Protective Environment 11/07/2022 11/07/2022 documented as of this encounter Care Teams Bar Machine Operator Multiple Spindle Relationship Specialty Start Date End Date Mark Colorado M.D. [address] [place] [address] PCP - General Family Medicine 11/09/22 documented as of this encounter
--- OUTSIDE RECORDS SUMMARY | 2023-11-05 22:12 | XMS_ITS | Encounter Summary ---
Author Organization [facility] Address [address] [place] [address] Care Team Providers Care Enamel Pulverizer Name Role Phone Mark Colorado M.D. Primary Care Provider [phone] Encounter Details Date Type Department Care Team (Late st Contact Info) Description 08/12/2023 Orders Only Department of Oncology in [place], [place] [address] [place] [address] Karen Burger Social History Tobacco Use Types [...] PM CDT Clinical Communication Virtual Review in [place], [place] 200 [place] [address] 11/15/2023 6:40 AM CDT Lab Department of Laboratory Medicine and Pathology, [facility] in [address] [address] Loyda Lennon M.D. [address] [place] [phone] 11/15/2023 8:20 AM CDT Office Visit Department of Oncology in [address] [address] Manjit Velasquez APRN, C.N.P., D.N.P. [address] [place] [phone] 11/15/2023 9:30 AM CDT Comprehensive Visit Department of Palliative Care in [address] [address] Patty Gomez APRN, C.N.P., M.S.N. [address] [place] [phone] 11/15/2023 2:15 PM CDT Infusion Department of Oncology in [address] [address] Loyda Lennon M.D. [address] [place] [phone] 11/22/2023 7:30 AM CDT Lab Department of Oncology in [place], [place] [address] [place] [address] Loyda Lennon M.D. [address] [place] [phone] 11/22/2023 8:45 AM CDT Infusion Department of Oncology in [place], [place] [address] [place] [phone] Loyda Lennon M.D. [address] [place] [phone] 11/28/2023 3:30 PM CDT Clinical Communication Virtual Review in [place], [place] 200 [place] [address] 11/29/2023 9:00 AM CDT Procedure visit Department of Urology in [place], [place] [address] [place] [phone] Mark Colorado M.D. [address] [place] [address] 11/29/2023 11:20 AM CDT Lab Department of Laboratory Medicine and Pathology, [facility], in [address] [address] Loyda Lennon M.D. [address] [place] [address] 11/29/2023 11:30 AM CDT Lab Department of Oncology in [place], [place] [address] [place] [address] Loyda Lennon M.D. [address] [place] [address] 11/29/2023 1:00 PM CDT Infusion Department of Oncology in [place], [place] [address] [place] [phone] Loyda Lennon M.D. [address] [place] [address] 12/03/2023 1:45 PM CDT Comprehensive Visit Department of Urology in [place], [place] [address] [place] [phone] Mona Egan P.A.-C. [address] [place] [address] 12/05/2023 1:20 PM CDT Comprehensive Visit Department of Oncology in [place], [place] [address] [place] [phone] Letty Kate M.D. [address] [place] [phone] 12/10/2023 3:00 PM CDT Clinical Communication Virtual Review in [place], [place] 200 [place] [address] 12/10/2023 3:30 PM CDT Procedure visit Department of Urology in [place], [place] [address] [place] [phone] Mark Colorado M.D. [facility] [place] [address] 12/12/2023 3:45 PM CDT Appointment Department of Radiology, [facility], in [place], [place] [address] [place] [phone] Na Hernandez M.D., Ph.D. [address] [place] [address] 12/13/2023 6:00 AM CDT Lab Department of Laboratory Medicine and Pathology, [facility], in [place], [place] [address] [place] [address] Loyda Lennon M.D. [address] [place] [address] 12/13/2023 6:20 AM CDT Lab Department of Infusion Therapy in [place], [place] [address] [place] [address] Loyda Lennon M.D. [address] [place] [address] 12/13/2023 11:10 AM CDT Office Visit Department of Oncology in [place], [place] [address] [place] [phone] Na Hernandez M.D., Ph.D. [address] [place] [phone] 12/13/2023 1:00 PM CDT Infusion Department of Oncology in [place], [place] [address] [place] [address] Loyda Lennon M.D. [address] [place] [address] 12/20/2023 9:20 AM CDT Lab Department of Infusion Therapy in [address] [address] Loyda Lennon M.D. [address] [place] [address] 12/20/2023 10:30 AM CDT Infusion Department of Oncology in [address] [address] Loyda Lennon M.D. [address] [place] [address] 12/25/2023 10:30 AM CDT Appointment Division of Gastroenterology in [address] [address] Na Hernandez M.D., Ph.D. [address] [place] [phone] 12/27/2023 10:15 AM CDT Lab Department of Oncology in [place], [place] [address] [place] [phone] Loyda Lennon M.D. [address] [place] [address] 12/27/2023 10:30 AM CDT Lab Department of Laboratory Medicine and Pathology, [facility] in [place], [place] [address] [place] [phone] Loyda Lennon M.D. [address] [place] [phone] 12/27/2023 11:45 AM CDT Infusion Department of Oncology in [place], [place] [address] [place] [address] Loyda Lennon M.D. [address] [place] [phone] 01/03/2024 1:00 PM CDT Clinical Communication Virtual Review in [address] [address] 01/10/2024 8:00 AM CDT Lab Department of Infusion Therapy in [address] [address] Loyda Lennon M.D. [address] [place] [address] 01/10/2024 8:20 AM CDT Lab Department of Laboratory Medicine and Pathology, [facility] in [place], [place] [address] [place] [address] Loyda Lennon M.D. [address] [place] [address] 01/10/2024 10:30 AM CDT Office Visit Department of Oncology in [place], [place] [address] [place] [phone] Na Hernandez M.D., Ph.D. [address] [place] [phone] 01/10/2024 11:45 AM CDT Infusion Department of Oncology in [place], [place] [address] [place] [phone] Loyda Lennon M.D. [address] [place] [address] 01/17/2024 8:45 AM CDT Lab Department of Oncology in [place], [place] [address] [place] [phone] Loyad Lennon M.D. [address] [place] [address] 01/17/2024 10:00 AM CDT Infusion Department of Oncology in [address] [address] Loyda Lennon M.D. [address] [place] [address] 01/24/2024 8:00 AM CDT Lab Department of Laboratory Medicine and Pathology, [facility], in [place], [place] [address] [place] [address] Loyda Lennon M.D. [address] [place] [address] 01/24/2024 8:15 AM CDT Lab Department of Oncology in [place], [place] [address] [place] [address] Loyda Lennon M.D. [address] [place] [address] 01/24/2024 9:15 AM CDT Infusion Department of Oncology in [place], [place] [address] [place] [address] Loyda Lennon M.D. [address] [place] [address] Scheduled Procedures Name Priority Associated Diagnoses Date/Ti me HEPATECTOMY RESECTION LIVER Cholangiocarcinoma (HCC) ULTRASOUND LIVER Cholangiocarcinoma (HCC) RECONSTRUCTION PORTAL VEIN Cholangiocarcinoma (HCC) documented as of this encounter Visit Diagnoses Not on filedocumented in this encounter Additional Health Concerns Infection Onset Date Last Indicated Resolved Time Protective Environment 11/07/2022 11/07/2022 documented as of this encounter Care Teams Enamel Pulverizer Relationship Specialty Start Date End Date Mark Colorado M.D. [address] [place] [address] PCP - General Family Medicine 11/09/22 documented as of this encounter
--- OUTSIDE RECORDS SUMMARY | 2023-11-05 22:12 | XMS_ITS | Encounter Summary ---
Author Organization [facility] Address [address] [place] [address] Care Team Providers Care Fabrication Specialist Name Role Phone Mark Colorado M.D. Primary Care Provider [phone] Reason for Referral * Cardiovascular-Diagnostic (Routine) - Closed Specialty Diagnoses / Procedures Referred By Contreema t Referred To Contact Diagnoses Cholangiocarcinoma (HCC) Procedures Echo Transthoracic (TTE) Na Hernandez M.D., Ph.D. [address] [place] [address] [facility] Referral ID Status Reason Start Date Expiration Date Visits Re quested Visits Authorized [id number] Closed 08/15/2023 08/14/2024 1 1 Encounter Details Date Type Department Care Team (Latest Contact Info) Description 08/15/2023 Orders Only Department of Oncology in [place], [place] [address] [place] [address] Karen Burger Cholangiocarcinoma (HCC) (Primary Dx) Social History Tobacco [...] your living situation today? I have a [facility] place to live 09/10/2022 Sex and Gender Information Value Date Recorded Sex Assigned at Male 09/10/2022 12:02 PM CDT Gender Identity Male 09/10/2022 12:02 PM CDT Sexual Orientation Straight 09/10/2022 12 :02 PM CDT documented as of this encounter Plan of Treatment Upcoming Encounters Date Type Department Care Team (Latest Contact Info) Description 11/07/2023 3:15 PM CDT Clinical Communication Virtual Review in [place], [place] 200 [place] [address] 11/15/2023 6:40 AM CDT Lab Department of Laboratory Medicine and Pathology, [facility] in [place], [place] [address] [place] [phone] Loyda Lennon M.D. [address] [place] [phone] 11/15/2023 8:20 AM CDT Office Visit Department of Oncology in [place], [place] [address] [place] [phone] Manjit Velasquez, KAYLEE, C.N.P., D.N.P. [address] [place] [phone] 11/15/2023 9:30 AM CDT Comprehensive Visit Department of Palliative Care in [place], [place] [address] [place] [phone] Patty Gomez APRN, C.N.P., M.S.N. [address] [place] [phone] 11/15/2023 2:15 PM CDT Infusion Department of Oncology in [place], [place] [address] [place] [phone] Loyda Lennon M.D. [address] [place] [phone] 11/22/2023 7:30 AM CDT Lab Department of Oncology in [place], [place] [address] [place] [phone] Loyda Lennon M.D. [address] [place] [address] 11/22/2023 8:45 AM CDT Infusion Department of Oncology in [place], [place] [address] [place] [phone] Loyda Lennon M.D. [address] [place] [phone] 11/28/2023 3:30 PM CDT Clinical Communication Virtual Review in [place], [place] 200 [place] [address] 11/29/2023 9:00 AM CDT Procedure visit Department of Urology in [address] [address] Mark Colorado [facility] [place] [phone] 11/29/2023 11:20 AM CDT Lab Department of Laboratory Medicine and Pathology, [facility], in [place], [place] [address] [place] [phone] Loyda Lennon M.D. [address] [place] [address] 11/29/2023 11:30 AM CDT Lab Department of Oncology in [place], [place] [address] [place] [phone] Loyda Lennon M.D. [address] [place] [phone] 11/29/2023 1:00 PM CDT Infusion Department of Oncology in [place], [place] [address] [place] [phone] Loyda Lennon M.D. [address] [place] [phone] 12/03/2023 1:45 PM CDT Comprehensive Visit Department of Urology in [place], [place] [address] [place] [phone] Mona Egan P.A.-C. [address] [place] [phone] 12/05/2023 1:20 PM CDT Comprehensive Visit Department of Oncology in [place], [place] [address] [place] [phone] Letty Kate M.D. [address] [place] [address] 12/10/2023 3:00 PM CDT Clinical Communication Virtual Review in [place], [place] [address] [place] [address] 12/10/2023 3:30 PM CDT Procedure visit Department of Urology in [place], [place] [address] [place] [phone] Mark Coloardo M.D. [address] [place] [phone] 12/12/2023 3:45 PM CDT Appointment Department of Radiology, [facility], in [place], [place] [address] [place] [phone] Na Hernandez M.D., Ph.D. [address] [place] [phone] 12/13/2023 6:00 AM CDT Lab Department of Laboratory Medicine and Pathology, [facility] in [place], [place] [address] [place] [phone] Loyda Lennon M.D. [address] [place] [phone] 12/13/2023 6:20 AM CDT Lab Department of Infusion Therapy in [address] [phone] Loyda Lennon M.D. [address] [place] [address] 12/13/2023 11:10 AM CDT Office Visit Department of Oncology in [address] [address] Na Hernandez M.D., Ph.D. [address] [place] [address] 12/13/2023 1:00 PM CDT Infusion Department of Oncology in [place], [place] [address] [place] [phone] Loyda Lennon M.D. [address] [place] [phone] 12/20/2023 9:20 AM CDT Lab Department of Infusion Therapy in [address] [address] Loyda Lennon M.D. [address] [place] [address] 12/20/2023 10:30 AM CDT Infusion Department of Oncology in [address] [phone] Loyda Lennon M.D. [address] [place] [address] 12/25/2023 10:30 AM CDT Appointment Division of Gastroenterology in [address] [phone] Na Hernandez M.D., Ph.D. [address] [place] [phone] 12/27/2023 10:15 AM CDT Lab Department of Oncology in [address] [address] Loyda Lennon M.D. [address] [place] [address] 12/27/2023 10:30 AM CDT Lab Department of Laboratory Medicine and Pathology, [facility], in [address] [address] Loyda Lennon M.D. [address] [place] [address] 12/27/2023 11:45 AM CDT Infusion Department of Oncology in [address] [phone] Loyda Lennon M.D. [address] [place] [phone] 01/03/2024 1:00 PM CDT Clinical Communication Virtual Review in [place], [place] [address] [place] [address] 01/10/2024 8:00 AM CDT Lab Department of Infusion Therapy in [place], [place] [address] [place] [phone] Loyda Lennon M.D. [address] [place] [address] 01/10/2024 8:20 AM CDT Lab Department of Laboratory Medicine and Pathology, [facility] in [place], [place] [address] [place] [phone] Loyda Lennon M.D. [address] [place] [phone] 01/10/2024 10:30 AM CDT Office Visit Department of Oncology in [address] [address] Na Hernandez M.D., Ph.D. [address] [place] [phone] 01/10/2024 11:45 AM CDT Infusion Department of Oncology in [address] [address] Loyda Lennon M.D. [address] [place] [phone] 01/17/2024 8:45 AM CDT Lab Department of Oncology in [address] [address] Loyda Lennon M.D. [address] [place] [phone] 01/17/2024 10:00 AM CDT Infusion Department of Oncology in [address] [address] Loyda Lennon M.D. [address] [place] [address] 01/24/2024 8:00 AM CDT Lab Department of Laboratory Medicine and Pathology, [facility], in [place], [place] [address] [place] [phone] Loyda Lennon M.D. [address] [place] [address] 01/24/2024 8:15 AM CDT Lab Department of Oncology in [place], [place] [address] [place] [phone] Loyda Lennon M.D. [address] [place] [address] 01/24/2024 9:15 AM CDT Infusion Department of Oncology in [place], [place] [address] [place] [address] Loyda Lennon M.D. [address] [place] [phone] Scheduled Procedures Name Priority Associated Diagnoses Date/Ti me HEPATECTOMY RESECTION LIVER Cholangiocarcinoma (HCC) ULTRASOUND LIVER Cholangiocarcinoma (HCC) RECONSTRUCTION PORTAL VEIN Cholangiocarcinoma (HCC) documented as of this encounter Results * (TTE) 2D ECHO [...] mitral valve regurgitation (two eccentric jets). Possibly trch-xe-[id number]. 5. No ??pericardial effusion. 6. Compared to [...] Mild mitral valve regurgitation (two eccentric jets). Ldvljiwwjcdd-uv-vzipzuwr. 5. No pericardial effusion. 6. Compared to [...] encounter Visit Diagnoses Diagnosis Cholangiocarcinoma (HCC)- Primary Cholangiocarcinoma (HCC) documented in this encounter Additional Health Concerns Infection Onset Date Last Indicated Resolved Time Protective Environment 11/07/2022 11/07/2022 documented as of this encounter Care Teams Fabrication Specialist Relationship Specialty Start Date End Date Mark Colorado M.D. [address] [place] [address] PCP - General Family Medicine 11/09/22 documented as of this encounter
--- OUTSIDE RECORDS SUMMARY | 2023-11-05 22:12 | XMS_ITS | Encounter Summary ---
Author Organization [facility] Address [address] [place] [address] Care Team Providers Care Test Desk Supervisor Name Role Phone Mark Colorado M.D. Primary Care Provider [phone] Reason for Visit * Episode Based Medications (Routine) - Authorized Specialty Diagnoses / Procedures Referred By Contac t Referred To Contact Diagnoses Cholangiocarcinoma (HCC) Longterm Current Drug Therapy, Chemotherapy Peritoneal Carcinomatosis (HCC) Neutropenia Chemotherapy Induced (HCC) Procedures KS ONDANSETRON HCL INJECTION KS PACLITAXEL INJECTION KS INJECTION, DARINEL ONC Yuko Pennington MPAS, P.A.-C. [address] [place] [address] Rst Onc Cruz [address] [place] [address] Referral ID Status Reason Start Date Expiration Date V isits Requested Visits Authorized [id number] Authorized 03/11/2023 03/31/2024 31 99 Encounter Details Date Type Department Care Team (Late st Contact Info) Description 08/20/2023 9:15 AM CDT Lab Department of Oncology in [place], [place] [address] [place] [address] Yuko Pennington MPAS, P.A.-C. [address] [place] [phone] Pure Hypercholesterolemia (Primary Dx); Cholangiocarcinoma (HCC) Social [...] [facility] 09/10/2022 Sex [...] PM CDT Clinical Communication Virtual Review in [place], [place] [address] [place] [address] 11/15/2023 6:40 AM CDT Lab Department of Laboratory Medicine and Pathology, [facility] in [place], [place] [address] [place] [phone] Loyda Lennon M.D. [address] [place] [phone] 11/15/2023 8:20 AM CDT Office Visit Department of Oncology in [place], [place] [address] [place] [phone] Manjit Velasquez, KAYLEE, C.N.P., D.N.P. [address] [place] [phone] 11/15/2023 9:30 AM CDT Comprehensive Visit Department of Palliative Care in [place], [place] [address] [place] [phone] Patty Gomez APRN, C.N.P., M.S.N. [address] [place] [phone] 11/15/2023 2:15 PM CDT Infusion Department of Oncology in [place], [place] [address] [place] [phone] Loyda Lennon M.D. [address] [place] [phone] 11/22/2023 7:30 AM CDT Lab Department of Oncology in [place], [place] [address] [place] [phone] Loyda Lennon M.D. [address] [place] [phone] 11/22/2023 8:45 AM CDT Infusion Department of Oncology in [place], [place] [address] [place] [phone] Loyda Lennon M.D. [address] [place] [phone] 11/28/2023 3:30 PM CDT Clinical Communication Virtual Review in [place], [place] 200 [place] [address] 11/29/2023 9:00 AM CDT Procedure visit Department of Urology in [place], [place] [address] [place] [phone] Mark Colorado M.D. [address] [place] [address] [place] [phone] 11/29/2023 11:20 AM CDT Lab Department of Laboratory Medicine and Pathology, [facility], in [place], [place] [address] [place] [phone] Loyda Lennon M.D. [address] [place] [phone] 11/29/2023 11:30 AM CDT Lab Department of Oncology in [place], [place] [address] [place] [phone] Loyda Lennon M.D. [address] [place] [phone] 11/29/2023 1:00 PM CDT Infusion Department of Oncology in [place], [place] [address] [place] [phone] Loyda Lennon M.D. [address] [place] [phone] 12/03/2023 1:45 PM CDT Comprehensive Visit Department of Urology in [address] [address] Mona Egan, PLillian-Sara [address] [place] [phone] 12/05/2023 1:20 PM CDT Comprehensive Visit Department of Oncology in [address] [phone] Letty Kate M.D. [address] [place] [phone] 12/10/2023 3:00 PM CDT Clinical Communication Virtual Review in [place], [place] 200 [place] [address] 12/10/2023 3:30 PM CDT Procedure visit Department of Urology in [place], [place] [address] [place] [phone] Mark Colorado M.D. [address] [place] [address] [place] [address] 12/12/2023 3:45 PM CDT Appointment Department of Radiology, [facility], in [place], [place] [address] [place] [phone] Na Hernandez M.D., Ph.D. [address] [place] [phone] 12/13/2023 6:00 AM CDT Lab Department of Laboratory Medicine and Pathology, [facility] in [place], [place] [address] [place] [phone] Loyda Lennon M.D. [address] [place] [phone] 12/13/2023 6:20 AM CDT Lab Department of Infusion Therapy in [place], [place] [address] [place] [phone] Loyda Lennon M.D. [address] [place] [phone] 12/13/2023 11:10 AM CDT Office Visit Department of Oncology in [place], [place] [address] [place] [phone] Na Hernandez M.D., Ph.D. [address] [place] [phone] 12/13/2023 1:00 PM CDT Infusion Department of Oncology in [place], [place] [address] [place] [phone] Loyda Lennon M.D. [address] [place] [address] 12/20/2023 9:20 AM CDT Lab Department of Infusion Therapy in [place], [place] [address] [place] [phone] Loyda Lennon M.D. [address] [place] [phone] 12/20/2023 10:30 AM CDT Infusion Department of Oncology in [place], [place] [address] [place] [phone] Loyda Lennon M.D. [address] [place] [phone] 12/25/2023 10:30 AM CDT Appointment Division of Gastroenterology in [address] [phone] Na Hernandez M.D., Ph.D. [address] [place] [phone] 12/27/2023 10:15 AM CDT Lab Department of Oncology in [place], [place] [address] [place] [phone] Loyda Lennon M.D. [address] [place] [phone] 12/27/2023 10:30 AM CDT Lab Department of Laboratory Medicine and Pathology, [facility], in [place], [place] [address] [place] [phone] Loyda Lennon M.D. [address] [place] [phone] 12/27/2023 11:45 AM CDT Infusion Department of Oncology in [address] [address] Loyda Lennon M.D. [address] [place] [phone] 01/03/2024 1:00 PM CDT Clinical Communication Virtual Review in [place], [place] 200 [place] [address] 01/10/2024 8:00 AM CDT Lab Department of Infusion Therapy in [place], [place] [address] [place] [phone] Loyda Lennon M.D. [address] [place] [phone] 01/10/2024 8:20 AM CDT Lab Department of Laboratory Medicine and Pathology, [facility] in [address] [address] Loyda Lennon M.D. [address] [place] [phone] 01/10/2024 10:30 AM CDT Office Visit Department of Oncology in [address] [phone] Na Hernandez M.D., Ph.D. [address] [place] [phone] 01/10/2024 11:45 AM CDT Infusion Department of Oncology in [address] [address] Loyda Lennon M.D. [address] [place] [phone] 01/17/2024 8:45 AM CDT Lab Department of Oncology in [address] [address] Loyda Lennon M.D. [address] [place] [phone] 01/17/2024 10:00 AM CDT Infusion Department of Oncology in [place], [place] [address] [place] [phone] Loyda Lennon M.D. [address] [place] [phone] 01/24/2024 8:00 AM CDT Lab Department of Laboratory Medicine and Pathology, [facility] in [place], [place] [address] [place] [phone] Loyda Lennon M.D. [address] [place] [phone] 01/24/2024 8:15 AM CDT Lab Department of Oncology in [place], [place] [address] [place] [phone] Loyda Lennon M.D. [address] [place] [phone] 01/24/2024 9:15 AM CDT Infusion Department of Oncology in [place], [place] [address] [place] [phone] Loyda Lennon M.D. [address] [place] [phone] Scheduled Procedures Name Priority Associated Diagnoses Date/Ti me HEPATECTOMY RESECTION LIVER Cholangiocarcinoma (HCC) ULTRASOUND LIVER Cholangiocarcinoma (HCC) RECONSTRUCTION PORTAL VEIN Cholangiocarcinoma (HCC) documented as of this encounter Procedures Procedure Name Priority Date/Time Associated Diagnosis Comments CBC WITH DIFFERENTIAL, B Routine 08/20/2023 9:15 AM CDT Cholangiocarcinoma (HCC) documented in this encounter Results * (ABNORMAL) CBC with Differential, Blood (08/20/2023 9:15 AM CDT) Hemoglobin 10.6(L) 13.2 - 16.6 g/dL 08/20/2023 10:34 AM CDT DHPM Hematocrit 32.3(L) 38.3 - 48.6 % 08/20/2023 10:34 AM CDT DHPM Erythrocytes 3.26(L) 4.35 - 5.65 x10(12)/L 08/20/2023 10:34 AM CDT [facility] MCV 99.1(H) 78.2 - 97.9 fL 08/20/2023 10:34 AM CDT DH[facility] RBC Distrib Width 15.1(H) 11.8 - 14.5 % 08/20/2023 10:34 AM CDT DH[facility] Platelet Count 136 135 - 317 x10(9)/L 08/20/2023 10:34 AM CDT DH[facility] Leukocytes 3.4 3.4 - 9.6 x10(9)/L 08/20/2023 10:34 AM CDT DH[facility] Neutrophils 2.27 1.56 - 6.45 x10(9)/L 08/20/2023 10:34 AM CDT DH[facility] Lymphocytes 0.62(L) 0.95 - 3.07 x10(9)/L 08/20/2023 10:34 AM CDT DHPM Monocytes 0.23(L) 0.26 - 0.81 x10(9)/L 08/20/2023 10:34 AM CDT DHPM Eosinophils 0.25 0.03 - 0.48 x10(9)/L 08/20/2023 10:34 AM CDT DHPM Basophils 0.04 0.01 - 0.08 x10(9)/L 08/20/2023 10:34 AM CDT DHPM Blood (Blood, Venous) 08/20/2023 9:15 AM CDT 08/20/2023 9:41 AM CDT Yuko LIU, P.A.BrittneyC. LAB BLOO D ADD-ON [facility] [place] [address] [place] [address], [facility] [address] [place] [address] documented in this encounter Visit Diagnoses Diagnosis Pure Hypercholesterolemia- Primary Cholangiocarcinoma (HCC) documented in this encounter Administered Medications Inactive Administered Medications - up to 3 most recent administrations Medication Order MAR Action Action Date Dose Rate Site heparin flush 500 Units 500 Units, intra-catheter, As needed, line care, Starting on Sat08/20/23 at 0854, When IVAD accessed and not infusing: When no infusion to maintain patency flush every 7 days following NaCL flush. 5 mL (500 units) of Heparin 100 units/mL to each port/lumen. When IVAD not accessed or infusing: When no infusion to maintain patency flush every 28 days following NaCL flush. 5 mL (500 units) of Heparin 100 units/mL to each port/lumen. Given 08/20/2023 9:02 AM CDT 500 Units sodium chloride 0.9 % injection 10-20 mL 10-20 mL, intra-catheter, As needed, line care, Starting on Sat08/20/23 at 0854, When IVAD accessed and infusing: Flush prior to and following infusion, between multiple consecutive infusions. 10 mL to each port/lumen. Given 08/20/2023 9:02 AM CDT 10 mL Given 08/20/2023 8:58 AM CDT 10 mL documented in this encounter Additional Health Concerns Infection Onset Date Last Indicated Resolved Time Protective Environment 11/07/2022 11/07/2022 documented as of this encounter Care Teams Test Desk Supervisor Relationship Specialty Start Date End Date Mark Colorado M.D. [address] [place] [address] PCP - General Family Medicine 11/09/22 documented as of this encounter
--- OUTSIDE RECORDS SUMMARY | 2023-11-05 22:12 | XMS_ITS | Encounter Summary ---
Author Organization [facility] Address [address] [place] [address] Care Team Providers Care Party Plan Sales Director Name Role Phone Mark Colorado M.D. Primary Care Provider [phone] Reason for Referral * Outpatient (Routine) - Closed Specialty Diagnoses / Procedures Referred By Chloe hinkle Referred To Contact Oncology Diagnoses Cholangiocarcinoma (HCC) Na Hernandez M.D., Ph.D. [address] [place] [address] [facility] Referral ID Status Reason Start Date Expiration Date Visits Re quested Visits Authorized [id number] Closed 08/09/2023 02/07/2025 1 1 * MRI/CAT/PET Scan (Routine) - Closed Specialty Diagnoses / Procedures Referred By Contac t Referred To Contact Radiology Diagnoses Cholangiocarcinoma (HCC) Procedures CT Abdomen Pelvis with IV Contrast Na Hernandez M.D., Ph.D. [address] [place] [phone] [facility] Referral ID Status Reason Start Date Expiration Date Visits Re quested Visits Authorized [id number] Closed 08/09/2023 08/08/2024 1 1 * MRI/CAT/PET Scan (Routine) - Closed Specialty Diagnoses / Procedures Referred By Contreema t Referred To Contact Radiology Diagnoses Cholangiocarcinoma (HCC) Procedures CT Chest with IV Contrast Na Hernandez M.D., Ph.D. [address] [place] [phone] [facility] Referral ID Status Reason Start Date Expiration Date Visits Re quested Visits Authorized [id number] Closed 08/09/2023 08/08/2024 1 1 Encounter Details Date Type Department Care Team (Latest Contact Info) Description 08/09/2023 Orders Only Department of Oncology in [place], [place] [address] [place] [phone] Karen Burger Cholangiocarcinoma (HCC) (Primary Dx) Social [...] PM CDT Clinical Communication Virtual Review in [place], [place] 200 [place] [address] 11/15/2023 6:40 AM CDT Lab Department of Laboratory Medicine and Pathology, [facility], in [place], [place] [address] [place] [phone] Loyda Lennon M.D. [address] [place] [phone] 11/15/2023 8:20 AM CDT Office Visit Department of Oncology in [address] [place] [address] [address] Manjit Velasquez, KAYLEE, C.N.P., D.N.P. [address] [place] [phone] 11/15/2023 9:30 AM CDT Comprehensive Visit Department of Palliative Care in [address] [place] [address] [address] Patty Gomez APRN, C.N.P., M.S.N. [address] [place] [phone] 11/15/2023 2:15 PM CDT Infusion Department of Oncology in [address] [address] Loyda Lennon M.D. [address] [place] [phone] 11/22/2023 7:30 AM CDT Lab Department of Oncology in [address] [address] Loyda Lennon M.D. [address] [place] [phone] 11/22/2023 8:45 AM CDT Infusion Department of Oncology in [place], [place] [address] [place] [phone] Loyda Lennon M.D. [address] [place] [phone] 11/28/2023 3:30 PM CDT Clinical Communication Virtual Review in [place], [place] 200 [place] [address] 11/29/2023 9:00 AM CDT Procedure visit Department of Urology in [address] [address] Mark Colorado M.D. [address] [place] [address] [place] [phone] 11/29/2023 11:20 AM CDT Lab Department of Laboratory Medicine and Pathology, [facility], in [place], [place] [address] [place] [phone] Loyda Lennon M.D. [address] [place] [phone] 11/29/2023 11:30 AM CDT Lab Department of Oncology in [address] [address] Loyda Lennon M.D. [address] [place] [phone] 11/29/2023 1:00 PM CDT Infusion Department of Oncology in [place], [place] [address] [place] [phone] Loyda Lennon M.D. [address] [place] [phone] 12/03/2023 1:45 PM CDT Comprehensive Visit Department of Urology in [place], [place] [address] [place] [phone] Mona Egan P.A.-C. [address] [place] [address] 12/05/2023 1:20 PM CDT Comprehensive Visit Department of Oncology in [place], [place] [address] [place] [phone] Letty Kate M.D. [address] [place] [phone] 12/10/2023 3:00 PM CDT Clinical Communication Virtual Review in [place], [place] [address] [place] [address] 12/10/2023 3:30 PM CDT Procedure visit Department of Urology in [place], [place] [address] [place] [phone] Mark Colorado M.D. [address] [place] [address] [place] [phone] 12/12/2023 3:45 PM CDT Appointment Department of Radiology, [facility], in [place], [place] [address] [place] [phone] Na Hernandez M.D., Ph.D. [address] [place] [phone] 12/13/2023 6:00 AM CDT Lab Department of Laboratory Medicine and Pathology, [facility], in [place], [place] [address] [place] [phone] Loyda Lennon M.D. [address] [place] [phone] 12/13/2023 6:20 AM CDT Lab Department of Infusion Therapy in [place], [place] [address] [place] [phone] Loyda Lennon M.D. [address] [place] [phone] 12/13/2023 11:10 AM CDT Office Visit Department of Oncology in [place], [place] [address] [place] [phone] Na Hernandez M.D., Ph.D. [address] [place] [phone] 12/13/2023 1:00 PM CDT Infusion Department of Oncology in [address] [address] Loyda Lennon M.D. [address] [place] [phone] 12/20/2023 9:20 AM CDT Lab Department of Infusion Therapy in [address] [place] [address] [address] Loyda Lennon M.D. [address] [place] [phone] 12/20/2023 10:30 AM CDT Infusion Department of Oncology in [place], [place] [address] [place] [phone] Loyda Lennon M.D. [address] [place] [address] 12/25/2023 10:30 AM CDT Appointment Division of Gastroenterology in [address] [address] Na Hernandez M.D., Ph.D. [address] [place] [phone] 12/27/2023 10:15 AM CDT Lab Department of Oncology in [place], [place] [address] [place] [phone] Loyda Lennon M.D. [address] [place] [phone] 12/27/2023 10:30 AM CDT Lab Department of Laboratory Medicine and Pathology, [facility] in [place], [place] [address] [place] [phone] Loyda Lennon M.D. [address] [place] [phone] 12/27/2023 11:45 AM CDT Infusion Department of Oncology in [address] [address] Loyda Lennon M.D. [address] [place] [phone] 01/03/2024 1:00 PM CDT Clinical Communication Virtual Review in [place], [place] 200 [place] [address] 01/10/2024 8:00 AM CDT Lab Department of Infusion Therapy in [address] [address] Loyda Lennon M.D. [address] [place] [phone] 01/10/2024 8:20 AM CDT Lab Department of Laboratory Medicine and Pathology, [facility] in [place], [place] [address] [place] [phone] Loyda Lennon M.D. [address] [place] [address] 01/10/2024 10:30 AM CDT Office Visit Department of Oncology in [place], [place] [address] [place] [phone] Na Hernandez M.D., Ph.D. [address] [place] [phone] 01/10/2024 11:45 AM CDT Infusion Department of Oncology in [place], [place] [address] [place] [phone] Loyda Lennon M.D. [address] [place] [phone] 01/17/2024 8:45 AM CDT Lab Department of Oncology in [place], [place] [address] [place] [phone] Loyda Lennon M.D. [address] [place] [address] 01/17/2024 10:00 AM CDT Infusion Department of Oncology in [place], [place] [address] [place] [phone] Loyda Lennon M.D. [address] [place] [phone] 01/24/2024 8:00 AM CDT Lab Department of Laboratory Medicine and Pathology, [facility], in [place], [place] [address] [place] [phone] Loyda Lennon M.D. [address] [place] [phone] 01/24/2024 8:15 AM CDT Lab Department of Oncology in [place], [place] [address] [place] [phone] Loyda Lennon M.D. [address] [place] [phone] 01/24/2024 9:15 AM CDT Infusion Department of Oncology in [place], [place] [address] [place] [address] Loyda Lennon M.D. [address] [place] [address] Scheduled Procedures Name Priority Associated Diagnoses Date/Ti me HEPATECTOMY RESECTION LIVER Cholangiocarcinoma (HCC) ULTRASOUND LIVER Cholangiocarcinoma (HCC) RECONSTRUCTION PORTAL VEIN Cholangiocarcinoma (HCC) Scheduled Referrals Name Type Priority Associated Diagnoses Orde r Schedule Oncology office visit (clinic) Outpatient Referral Routine Cholangiocarcinoma (HCC) Expected: 09/27/2023, Expires: 11/08/2024 documented as of this encounter Results * CT Abdomen Pelvis [...] smallamount of ascites. Na Hernandez M.D., Ph.D. [facility] [place] * [...] thoracic lymph nodes. Na Hernandez M.D., Ph.D. [facility] [place] EDURES documented in this encounter Visit Diagnoses Diagnosis Cholangiocarcinoma (HCC)- Primary Cholangiocarcinoma (HCC) documented in this encounter Additional Health Concerns Infection Onset Date Last Indicated Resolved Time Protective Environment 11/07/2022 11/07/2022 documented as of this encounter Care Teams Party Plan Sales Director Relationship Specialty Start Date End Date Mark Colorado M.D. LOUISAI: [phone] [facility] [place] [address] PCP - General Family Medicine 11/09/22 documented as of this encounter
--- OUTSIDE RECORDS SUMMARY | 2023-11-05 22:12 | XMS_ITS | Encounter Summary ---
Author Organization [facility] Address [address] [place] [address] Care Team Providers Care Claim Examiner Name Role Phone Mark Colorado M.D. Primary Care Provider [phone] Encounter Details Date Type Department Care Team (Late st Contact Info) Description 08/12/2023 Clinical Communication Department of Oncology in [place], [place] [address] [place] [phone] Tavia Arroyo, RHoldenN. [address] [place] [phone] Social History Tobacco Use Types Packs/Day Years [...] PM CDT Clinical Communication Virtual Review in [place], [place] 200 [place] [address] 11/15/2023 6:40 AM CDT Lab Department of Laboratory Medicine and Pathology, [facility] in [address] [phone] Loyda Lennon M.D. [address] [place] [phone] 11/15/2023 8:20 AM CDT Office Visit Department of Oncology in [address] [address] Manjit Velasquez APRN, C.N.P., D.N.P. [address] [place] [phone] 11/15/2023 9:30 AM CDT Comprehensive Visit Department of Palliative Care in [address] [address] Patty Gomez APRN, C.N.P., M.S.N. [address] [place] [phone] 11/15/2023 2:15 PM CDT Infusion Department of Oncology in [address] [address] Loyda Lennon M.D. [address] [place] [phone] 11/22/2023 7:30 AM CDT Lab Department of Oncology in [place], [place] [address] [place] [phone] Loyda Lennon M.D. [address] [place] [phone] 11/22/2023 8:45 AM CDT Infusion Department of Oncology in [place], [place] [address] [place] [phone] Loyda Lennon M.D. [address] [place] [phone] 11/28/2023 3:30 PM CDT Clinical Communication Virtual Review in [place], [place] [address] [place] [address] 11/29/2023 9:00 AM CDT Procedure visit Department of Urology in [place], [place] [address] [place] [phone] Mark Colorado M.D. [address] [place] [address] [place] [address] 11/29/2023 11:20 AM CDT Lab Department of Laboratory Medicine and Pathology, [facility], in [place], [place] [address] [place] [phone] Loyda Lennon M.D. [address] [place] [phone] 11/29/2023 11:30 AM CDT Lab Department of Oncology in [place], [place] [address] [place] [phone] Loyda Lennon M.D. [address] [place] [address] 11/29/2023 1:00 PM CDT Infusion Department of Oncology in [place], [place] [address] [place] [phone] Loyda Lennon M.D. [address] [place] [phone] 12/03/2023 1:45 PM CDT Comprehensive Visit Department of Urology in [place], [place] [address] [place] [phone] Mona Egan P.A.-C. [address] [place] [phone] 12/05/2023 1:20 PM CDT Comprehensive Visit Department of Oncology in [place], [place] [address] [place] [phone] Letty Kate M.D. [address] [place] [phone] 12/10/2023 3:00 PM CDT Clinical Communication Virtual Review in [place], [place] [address] [place] [address] 12/10/2023 3:30 PM CDT Procedure visit Department of Urology in [place], [place] [address] [place] [phone] Mark Colorado M.D. [address] [place] [address] [place] [address] 12/12/2023 3:45 PM CDT Appointment Department of Radiology, [facility], in [place], [place] [address] [place] [phone] Na Hernandez M.D., Ph.D. [address] [place] [phone] 12/13/2023 6:00 AM CDT Lab Department of Laboratory Medicine and Pathology, [facility], in [place], [place] [address] [place] [phone] Loyda Lennon M.D. [address] [place] [phone] 12/13/2023 6:20 AM CDT Lab Department of Infusion Therapy in [place], [place] [address] [place] [phone] Loyda Lennon M.D. [address] [place] [phone] 12/13/2023 11:10 AM CDT Office Visit Department of Oncology in [place], [place] [address] [place] [phone] Na Hernandez M.D., Ph.D. [address] [place] [phone] 12/13/2023 1:00 PM CDT Infusion Department of Oncology in [place], [place] [address] [place] [phone] Loyda Lennon M.D. [address] [place] [phone] 12/20/2023 9:20 AM CDT Lab Department of Infusion Therapy in [place], [place] [address] [place] [phone] Loyda Lennon M.D. [address] [place] [phone] 12/20/2023 10:30 AM CDT Infusion Department of Oncology in [place], [place] [address] [place] [phone] Loyda Lennon M.D. [address] [place] [phone] 12/25/2023 10:30 AM CDT Appointment Division of Gastroenterology in [address] [phone] Na Hernandez M.D., Ph.D. [address] [place] [phone] 12/27/2023 10:15 AM CDT Lab Department of Oncology in [address] [phone] Loyda Lennon M.D. [address] [place] [phone] 12/27/2023 10:30 AM CDT Lab Department of Laboratory Medicine and Pathology, [address] [address] Loyda Lennon M.D. [address] [place] [phone] 12/27/2023 11:45 AM CDT Infusion Department of Oncology in [address] [address] Loyda Lennon M.D. [address] [place] [phone] 01/03/2024 1:00 PM CDT Clinical Communication Virtual Review in [address] [address] 01/10/2024 8:00 AM CDT Lab Department of Infusion Therapy in [address] [address] Loyda Lennon M.D. [address] [place] [phone] 01/10/2024 8:20 AM CDT Lab Department of Laboratory Medicine and Pathology, [facility] in [address] [phone] Loyda Lennon M.D. [address] [place] [phone] 01/10/2024 10:30 AM CDT Office Visit Department of Oncology in [address] [address] Na Hernandez M.D., Ph.D. [address] [place] [phone] 01/10/2024 11:45 AM CDT Infusion Department of Oncology in [place], [place] [address] [place] [phone] Loyda Lennon M.D. [address] [place] [phone] 01/17/2024 8:45 AM CDT Lab Department of Oncology in [address] [address] Loyda Lennon M.D. [address] [place] [phone] 01/17/2024 10:00 AM CDT Infusion Department of Oncology in [address] [address] Loyda Lennon M.D. [address] [place] [phone] 01/24/2024 8:00 AM CDT Lab Department of Laboratory Medicine and Pathology, [facility], in [address] [phone] Loyda Lennon M.D. [address] [place] [phone] 01/24/2024 8:15 AM CDT Lab Department of Oncology in [address] [place] [address] Loyda Lennon M.D. [address] [place] [address] 01/24/2024 9:15 AM CDT Infusion Department of Oncology in [place], [place] [address] [place] [address] Loyda Lennon M.D. [address] [place] [address] Scheduled Procedures Name Priority Associated Diagnoses Date/Ti me HEPATECTOMY RESECTION LIVER Cholangiocarcinoma (HCC) ULTRASOUND LIVER Cholangiocarcinoma (HCC) RECONSTRUCTION PORTAL VEIN Cholangiocarcinoma (HCC) documented as of this encounter Visit Diagnoses Not on filedocumented in this encounter Additional Health Concerns Infection Onset Date Last Indicated Resolved Time Protective Environment 11/07/2022 11/07/2022 documented as of this encounter Care Teams Claim Examiner Relationship Specialty Start Date End Date Mark Colorado M.D. [address] [place] [address] PCP - General Family Medicine 11/09/22 documented as of this encounter
--- OUTSIDE RECORDS SUMMARY | 2023-11-05 22:12 | XMS_ITS | Encounter Summary ---
Author Organization [facility] Address [address] [place] [address] Care Team Providers Care Dependency Case Manager Name Role Phone Mark Colorado M.D. 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 I have a [facility] place to live 09/10/2022 Sex and Gender Information Value Date Recorded Sex Assigned at Male 09/10/2022 12:02 PM CDT Gender Identity Male 09/10/2022 12:02 PM CDT Sexual Orientation Straight 09/10/2022 12 :02 PM CDT documented as of this encounter Plan of Treatment Upcoming Encounters Date Type Department Care Team (Latest Contact Info) Description 11/07/2023 3:15 PM CDT Clinical Communication Virtual Review in [place], [place] [address] [place] [address] 11/15/2023 6:40 AM CDT Lab Department of Laboratory Medicine and Pathology, [facility] in [address] [address] Lodya Lennon M.D. [address] [place] [address] 11/15/2023 8:20 AM CDT Office Visit Department of Oncology in [address] [address] Manjit Velasquez APRN, C.N.P., D.N.P. [address] [place] [phone] 11/15/2023 9:30 AM CDT Comprehensive Visit Department of Palliative Care in [address] [address] Patty Gomez APRN, C.N.P., M.S.N. [address] [place] [address] 11/15/2023 2:15 PM CDT Infusion Department of Oncology in [place], [place] [address] [place] [address] Loyda Lennon M.D. [address] [place] [phone] 11/22/2023 7:30 AM CDT Lab Department of Oncology in [place], [place] [address] [place] [phone] Loyda Lennon M.D. [address] [place] [phone] 11/22/2023 8:45 AM CDT Infusion Department of Oncology in [place], [place] [address] [place] [address] Loyda Lennon M.D. [address] [place] [address] 11/28/2023 3:30 PM CDT Clinical Communication Virtual Review in [place], [place] [address] [place] [address] 11/29/2023 9:00 AM CDT Procedure visit Department of Urology in [place], [place] [address] [place] [phone] Mark Colorado M.D. [address] [place] [phone] 11/29/2023 11:20 AM CDT Lab Department of Laboratory Medicine and Pathology, [facility], in [place], [place] [address] [place] [phone] Loyda Lennon M.D. [address] [place] [address] 11/29/2023 11:30 AM CDT Lab Department of Oncology in [place], [place] [address] [place] [address] Loyda Lennon M.D. [address] [place] [phone] 11/29/2023 1:00 PM CDT Infusion Department of Oncology in [place], [place] [address] [place] [phone] Loyda Lennon M.D. [address] [place] [address] 12/03/2023 1:45 PM CDT Comprehensive Visit Department of Urology in [place], [place] [address] [place] [phone] Mona Egan P.A.-C. [address] [place] [address] 12/05/2023 1:20 PM CDT Comprehensive Visit Department of Oncology in [place], [place] [address] [place] [address] Letty Kate M.D. [address] [place] [phone] 12/10/2023 3:00 PM CDT Clinical Communication Virtual Review in [place], [place] [address] [place] [address] 12/10/2023 3:30 PM CDT Procedure visit Department of Urology in [place], [place] [address] [place] [phone] Mark Colorado M.D. [address] [place] [address] 12/12/2023 3:45 PM CDT Appointment Department of Radiology, [facility], in [place], [place] [address] [place] [phone] Na Hernandez M.D., Ph.D. [address] [place] [address] 12/13/2023 6:00 AM CDT Lab Department of Laboratory Medicine and Pathology, [facility], in [place], [place] [address] [place] [phone] Loyda Lennon M.D. [address] [place] [address] 12/13/2023 6:20 AM CDT Lab Department of Infusion Therapy in [place], [place] [address] [place] [phone] Loyda Lennon M.D. [address] [place] [address] 12/13/2023 11:10 AM CDT Office Visit Department of Oncology in [address] [address] Na Hernandez M.D., Ph.D. [address] [place] [phone] 12/13/2023 1:00 PM CDT Infusion Department of Oncology in [address] [address] Loyda Lennon M.D. [address] [place] [phone] 12/20/2023 9:20 AM CDT Lab Department of Infusion Therapy in [address] [address] Loyda Lennon M.D. [address] [place] [address] 12/20/2023 10:30 AM CDT Infusion Department of Oncology in [place], [place] [address] [place] [phone] Loyda Lennon M.D. [address] [place] [address] 12/25/2023 10:30 AM CDT Appointment Division of Gastroenterology in [place], [place] [address] [place] [phone] Na Hernandez M.D., Ph.D. [address] [place] [address] 12/27/2023 10:15 AM CDT Lab Department of Oncology in [place], [place] [address] [place] [address] Loyda Lennon M.D. [address] [place] [address] 12/27/2023 10:30 AM CDT Lab Department of Laboratory Medicine and Pathology, [facility] in [address] [address] Loyda Lennon M.D. [address] [place] [phone] 12/27/2023 11:45 AM CDT Infusion Department of Oncology in [address] [address] Loyda Lennon M.D. [address] [place] [phone] 01/03/2024 1:00 PM CDT Clinical Communication Virtual Review in [place], [place] [address] [place] [address] 01/10/2024 8:00 AM CDT Lab Department of Infusion Therapy in [place], [place] [address] [place] [phone] Loyda Lennon M.D. [address] [place] [phone] 01/10/2024 8:20 AM CDT Lab Department of Laboratory Medicine and Pathology, [facility] in [place], [place] [address] [place] [phone] Loyda Lennon M.D. [address] [place] [phone] 01/10/2024 10:30 AM CDT Office Visit Department of Oncology in [place], [place] [address] [place] [phone] Na Hernandez M.D., Ph.D. [address] [place] [address] 01/10/2024 11:45 AM CDT Infusion Department of Oncology in [place], [place] [address] [place] [phone] Loyda Lennon M.D. [address] [place] [address] 01/17/2024 8:45 AM CDT Lab Department of Oncology in [place], [place] [address] [place] [address] Loyda Lennon M.D. [address] [place] [address] 01/17/2024 10:00 AM CDT Infusion Department of Oncology in [address] [address] Loyda Lennon M.D. [address] [place] [address] 01/24/2024 8:00 AM CDT Lab Department of Laboratory Medicine and Pathology, [facility], in [place], [place] [address] [place] [phone] Loyda Lennon M.D. [address] [place] [address] 01/24/2024 8:15 AM CDT Lab Department of Oncology in [place], [place] [address] [place] [address] Loyda Lennon M.D. [address] [place] [address] 01/24/2024 9:15 AM CDT Infusion Department of Oncology in [place], [place] [address] [place] [address] Loyda Lennon M.D. [address] [place] [address] Scheduled Procedures Name Priority Associated Diagnoses Date/Ti me HEPATECTOMY RESECTION LIVER Cholangiocarcinoma (HCC) ULTRASOUND LIVER Cholangiocarcinoma (HCC) RECONSTRUCTION PORTAL VEIN Cholangiocarcinoma (HCC) documented as of this encounter Visit Diagnoses Diagnosis Cholangiocarcinoma (HCC)- Primary Senior Care Current Drug Therapy, Chemotherapy Peritoneal Carcinomatosis (HCC) documented in this encounter Additional Health Concerns Infection Onset Date Last Indicated Resolved Time Protective Environment 11/07/2022 11/07/2022 documented as of this encounter Care Teams Dependency Case Manager Relationship Specialty Start Date End Date Mark Colorado M.D. [address] [place] [address] PCP - General Family Medicine 11/09/22 documented as of this encounter
--- OUTSIDE RECORDS SUMMARY | 2023-11-05 22:12 | XMS_ITS | Encounter Summary ---
Author Organization [facility] Address [address] [place] [address] Care Team Providers Care Scrap Bunch Maker Name Role Phone Mark Colorado M.D. Primary Care Provider [phone] Reason for Visit * Episode Based Medications (Routine) - Authorized Specialty Diagnoses / Procedures Referred By Contac t Referred To Contact Diagnoses Cholangiocarcinoma (HCC) Half-Way Current Drug Therapy, Chemotherapy Peritoneal Carcinomatosis (HCC) Neutropenia Chemotherapy Induced (HCC) Procedures [place] ONDANSETRON HCL INJECTION [place] PACLITAXEL INJECTION [place] INJECTION, DARINEL ONC Yuko Pennington MPAS, P.A.-C. [address] [place] [address] Rst Onc [place] [address] [place] [address] Referral ID Status Reason Start Date Expiration Date V isits Requested Visits Authorized [id number] Authorized 03/11/2023 03/31/2024 31 99 Encounter Details Date Type Department Care Team (Latest Contact Info) Description 08/13/2023 1:10 PM CDT Office Visit Department of Oncology in [place], [place] [address] [place] [address] Yuko Pennington MPAS, P.AHolden-C. 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 I have a [facility] place to live 09/10/2022 Sex and Gender Information Value Date Recorded Sex Assigned at Male 09/10/2022 12:02 PM CDT Gender Identity Male 09/10/2022 12:02 PM CDT Sexual Orientation Straight 09/10/2022 12 :02 PM CDT documented as of this encounter Last Filed Vital Signs Vital Sign Reading Time Taken Comments Blood Pressure 131/70 08/13/2023 1:06 PM CDT Pulse 66 08/13/2023 1:06 PM CDT Temperature 37 ??C (98.6 ??F) 08/13/2023 1:06 PM CDT Respiratory Rate 17 08/13/2023 1:06 PM CDT Oxygen Saturation 100% 08/13/2023 1:06 PM CDT Inhaled Oxygen Concentration - - Weight 89.6 kg (197 lb 8.5 oz) 08/13/2023 1:06 P M CDT Height 182 cm (5' 11.65) 08/13/2023 1:06 PM CDT Body Mass Index 27.05 08/13/2023 1:06 PM CDT documented in this encounter Progress Notes * Yuko Pennington MPAS, P.A.-C. - 08/13/2023 1:10 PM CDT .SUBJECTIVE LOCAL ONCOLOGIST: No care rn team leader to display PRIMARY [place]STER ONCOLOGIST: Na Hernandez M.D., Ph.D. CHIEF COMPLAINT / REASON FOR VISIT Jorge Luis Sepulveda is a 68 y.o. 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 Cancer Staging Cholangiocarcinoma (HCC) Staging form: Intrahepatic Bile Duct, AJCC 8th Edition - Clinical stage from 10/12/2022: Stage IB (cT1b, cN0, cM0) - Pathologic stage from 01/09/2023: Stage IV (pM1) Current Therapy: [facility] CTX-009-002 ( CTX-009 / PACLitaxel ) Current Disease Status: Responding Intent of Therapy: Investigational Study HISTORY OF PRESENT ILLNESS Oncology History Oncology [...] LUISA, low TMB (4.2 m/Mb). 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 01/09/2023 Surgery and Procedures Diagnostic laparoscopy identified peritoneal lesions in the left hemidiaphragm and pelvis which were biopsied and showed metastatic adenocarcinoma. 01/09/2023 Pathologic Stage Staging form: Intrahepatic Bile Duct, AJCC 8th Edition - Pathologic stage from 01/09/2023: Stage IV (pM1) 01/24/2023 Genetic Testing and Tumor Genotyping POSITIVE Germline genetic testing in 2022; [employer] Cancer + RNA panel from [facility]. 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 One Variant of Uncertain Significance (VUS) identified in the BRCA1 gene, specifically c.3607C>G 06/18/2023 - Research Study Participant Research Study: A Study of CTX-009 in Combination With Paclitaxel in Adult Patients With Unresectable Advanced, Metastatic or Recurrent Biliary Tract Cancers (DIRECTOR OF ENTERPRISE APPLICATIONS-002) ([id number]) Treatment Protocol: [facility] CTX-009-002 ( CTX-009 / PACLitaxel ) INTERVAL HISTORY: presents for evaluation. He continues to do well. 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 This is slightly worse in the last month. He had some slight swelling in his ankles about a week ago which resolved over 2 days. He notes interval worsening of his hearing but does not want to undergo audiology evaluation. He has some sinus congestion for which he uses Flonase. He has intermittent nausea which is controlled using Zofran. REVIEW OF SYSTEMS Pertinent items are noted in HPI; all other review of systems were negative. OBJECTIVE BP 131/70 (BP Location: Right arm, Patient Position: Sitting, Cuff Size: Large) Pulse 66 Temp 37 ??C (Tympanic) Resp 17 Ht 182 cm Wt 89.6 kg SpO2 100% BMI 27.05 kg/m?? Rate your distress: 1 PHYSICAL EXAMINATION [...] I agree with the interpretation as recorded. ASSESSMENT / PLAN #1 Cholangiocarcinoma (HCC) Jorge Luis Sepulveda is a 68 y.o. [...] the experimental arm in May 2022. He now returns for restaging after 2 cycles. His scans after 2 months of crossover showed stability of the primary tumor and slight decrease of peritoneal carcinomatosis; CA 19-9 is stable at 146. Clinically he is tolerating treatment well. He required omission of paclitaxel on cycle 2, day 15 due to neutropenia. We discussed the possibility of adding Neulasta if neutropenia is his only limiting toxicity, or as dictated by the protocol. He is here for cycle 3 day 1 evaluation. Per the protocol, we can resume paclitaxel at the same dose given that the cycle 2 day 15 neutropenia was grade 2 in nature. I discussed the use of Neulasta support with the patient as well as Dr. Hernandez and we will proceed with this on day 16 this cycle. Blood pressure is now optimized. We will see him back as per [...] PM CDT Clinical Communication Virtual Review in [address] [address] 11/15/2023 6:40 AM CDT Lab Department of Laboratory Medicine and Pathology, [facility], in [address] [address] Loyda Lennon M.D. [address] [place] [address] 11/15/2023 8:20 AM CDT Office Visit Department of Oncology in [address] [address] Manjit Velasquez APRN, C.N.P., D.N.P. [address] [place] [phone] 11/15/2023 9:30 AM CDT Comprehensive Visit Department of Palliative Care in [address] [address] Patty Gomez APRN, C.N.P., M.S.N. [address] [place] [address] 11/15/2023 2:15 PM CDT Infusion Department of Oncology in [address] [address] Loyda Lennon M.D. [address] [place] [address] 11/22/2023 7:30 AM CDT Lab Department of Oncology in [place], [place] [address] [place] [phone] Loyda Lennon M.D. [address] [place] [address] 11/22/2023 8:45 AM CDT Infusion Department of Oncology in [place], [place] [address] [place] [address] Loyda Lennon M.D. [address] [place] [address] 11/28/2023 3:30 PM CDT Clinical Communication Virtual Review in [place], [place] [address] [place] [address] 11/29/2023 9:00 AM CDT Procedure visit Department of Urology in [place], [place] [address] [place] [phone] Mark Colorado M.D. [address] [place] [address] [place] [address] 11/29/2023 11:20 AM CDT Lab Department of Laboratory Medicine and Pathology, [facility], in [place], [place] [address] [place] [address] Loyda Lennon M.D. [address] [place] [address] 11/29/2023 11:30 AM CDT Lab Department of Oncology in [place], [place] [address] [place] [phone] Loyda Lennon M.D. [address] [place] [phone] 11/29/2023 1:00 PM CDT Infusion Department of Oncology in [place], [place] [address] [place] [phone] Loyda Lennon M.D. [address] [place] [address] 12/03/2023 1:45 PM CDT Comprehensive Visit Department of Urology in [place], [place] [address] [place] [phone] Mona Egan P.A.-C. [address] [place] [phone] 12/05/2023 1:20 PM CDT Comprehensive Visit Department of Oncology in [place], [place] [address] [place] [phone] Letty Kate M.D. [address] [place] [address] 12/10/2023 3:00 PM CDT Clinical Communication Virtual Review in [place], [place] [address] [place] [address] 12/10/2023 3:30 PM CDT Procedure visit Department of Urology in [place], [place] [address] [place] [address] Mark Colorado M.D. [address] [place] [address] [place] [address] 12/12/2023 3:45 PM CDT Appointment Department of Radiology, [facility], in [place], [place] [address] [place] [phone] Na Hernandez M.D., Ph.D. [address] [place] [address] 12/13/2023 6:00 AM CDT Lab Department of Laboratory Medicine and Pathology, [facility], in [place], [place] [address] [place] [address] Loyda Lennon M.D. [address] [place] [address] 12/13/2023 6:20 AM CDT Lab Department of Infusion Therapy in [place], [place] [address] [place] [address] Loyda Lennon M.D. [address] [place] [address] 12/13/2023 11:10 AM CDT Office Visit Department of Oncology in [place], [place] [address] [place] [phone] Na Hernandez M.D., Ph.D. [address] [place] [address] 12/13/2023 1:00 PM CDT Infusion Department of Oncology in [place], [place] [address] [place] [address] Loyda Lennon M.D. [address] [place] [address] 12/20/2023 9:20 AM CDT Lab Department of Infusion Therapy in [place], [place] [address] [place] [address] Loyda Lennon M.D. [address] [place] [address] 12/20/2023 10:30 AM CDT Infusion Department of Oncology in [place], [place] [address] [place] [address] Loyda Lennon M.D. [address] [place] [phone] 12/25/2023 10:30 AM CDT Appointment Division of Gastroenterology in [place], [place] [address] [place] [phone] Na Hernandez M.D., Ph.D. [address] [place] [phone] 12/27/2023 10:15 AM CDT Lab Department of Oncology in [place], [place] [address] [place] [phone] Loyda Lennon M.D. [address] [place] [phone] 12/27/2023 10:30 AM CDT Lab Department of Laboratory Medicine and Pathology, [facility] in [place], [place] [address] [place] [phone] Loyda Lennon M.D. [address] [place] [address] 12/27/2023 11:45 AM CDT Infusion Department of Oncology in [address] [address] Loyda Lennon M.D. [address] [place] [address] 01/03/2024 1:00 PM CDT Clinical Communication Virtual Review in [place], [place] [address] [place] [address] 01/10/2024 8:00 AM CDT Lab Department of Infusion Therapy in [address] [address] Lyoda Lennon M.D. [address] [place] [address] 01/10/2024 8:20 AM CDT Lab Department of Laboratory Medicine and Pathology, [facility], in [place], [place] [address] [place] [address] Loyda Lennon M.D. [address] [place] [address] 01/10/2024 10:30 AM CDT Office Visit Department of Oncology in [place], [place] [address] [place] [phone] Na Hernandez M.D., Ph.D. [address] [place] [phone] 01/10/2024 11:45 AM CDT Infusion Department of Oncology in [place], [place] [address] [place] [address] Loyda Lennon M.D. [address] [place] [phone] 01/17/2024 8:45 AM CDT Lab Department of Oncology in [place], [place] [address] [place] [address] Loyda Lennon M.D. [address] [place] [address] 01/17/2024 10:00 AM CDT Infusion Department of Oncology in [place], [place] [address] [place] [address] Loyda Lennon M.D. [address] [place] [phone] 01/24/2024 8:00 AM CDT Lab Department of Laboratory Medicine and Pathology, [facility], in [place], [place] [address] [place] [address] Loyda Lennon M.D. [address] [place] [phone] 01/24/2024 8:15 AM CDT Lab Department of Oncology in [place], [place] [address] [place] [address] Loyda Lennon M.D. [address] [place] [address] 01/24/2024 9:15 AM CDT Infusion Department of Oncology in [place], [place] [address] [place] [address] Loyda Lennon M.D. [address] [place] [address] Scheduled Procedures Name Priority Associated Diagnoses Date/Ti me HEPATECTOMY RESECTION LIVER Cholangiocarcinoma (HCC) ULTRASOUND LIVER Cholangiocarcinoma (HCC) RECONSTRUCTION PORTAL VEIN Cholangiocarcinoma (HCC) documented as of this encounter Visit Diagnoses Diagnosis Peritoneal Carcinomatosis (HCC)- Primary Cholangiocarcinoma (HCC) Half-Way Current Drug Therapy, Chemotherapy documented in this encounter Additional Health Concerns Infection Onset Date Last Indicated Resolved Time Protective Environment 11/07/2022 11/07/2022 documented as of this encounter Care Teams Scrap Bunch Maker Relationship Specialty Start Date End Date Mark Colorado M.D. [address] [place] [address] PCP - General Family Medicine 11/09/22 documented as of this encounter
--- OUTSIDE RECORDS SUMMARY | 2023-11-05 22:12 | XMS_ITS | Encounter Summary ---
Author Organization [facility] Address [address] [place] [address] Care Team Providers Care Gin Feeder Name Role Phone Mark Colorado M.D. Primary Care Provider [phone] Reason for Visit * Episode Based Medications (Routine) - Authorized Specialty Diagnoses / Procedures Referred By Contac t Referred To Contact Diagnoses Cholangiocarcinoma (HCC) Assisted Current Drug Therapy, Chemotherapy Peritoneal Carcinomatosis (HCC) Neutropenia Chemotherapy Induced (HCC) Procedures WV ONDANSETRON HCL INJECTION WV PACLITAXEL INJECTION WV INJECTION, DARINEL ONC Yuko Pennington MPAS, P.A.-C. [address] [place] [address] Rst Onc Cruz [address] [place] [address] Referral ID Status Reason Start Date Expiration Date V isits Requested Visits Authorized [id number] Authorized 03/11/2023 03/31/2024 31 99 Encounter Details Date Type Department Care Team (Latest Contact Info) Description 08/13/2023 2:00 PM CDT Infusion Department of Oncology in [place], [place] [address] [place] [address] Yuko Pennington MPAS P.AHolden-C. [address] [place] [phone] Pure Hypercholesterolemia (Primary Dx); Cholangiocarcinoma (HCC); Assisted [...] your living situation today? I have a [facility] place to live 09/10/2022 Sex and [...] CDT Clinical Communication Virtual Review in [place], [place] [address] [place] [address] 11/15/2023 6:40 AM CDT Lab Department of Laboratory Medicine and Pathology, [facility], in [place], [place] [address] [place] [phone] Loyda Lennon M.D. [address] [place] [phone] 11/15/2023 8:20 AM CDT Office Visit Department of Oncology in [place], [place] [address] [place] [phone] Manjit Velasquez APRN C.N.P., D.N.P. [address] [place] [phone] 11/15/2023 9:30 AM CDT Comprehensive Visit Department of Palliative Care in [place], [place] [address] [place] [phone] Patty Gomez APRN, C.N.P., M.S.N. [address] [place] [phone] 11/15/2023 2:15 PM CDT Infusion Department of Oncology in [place], [place] [address] [place] [phone] Loyda Lennon M.D. [address] [place] [phone] 11/22/2023 7:30 AM CDT Lab Department of Oncology in [place], [place] [address] [place] [phone] Loyda Lennon M.D. [address] [place] [phone] 11/22/2023 8:45 AM CDT Infusion Department of Oncology in [place], [place] [address] [place] [phone] Loyad Lennon M.D. [address] [place] [phone] 11/28/2023 3:30 PM CDT Clinical Communication Virtual Review in [place], [place] [address] [place] [address] 11/29/2023 9:00 AM CDT Procedure visit Department of Urology in [place], [place] [address] [place] [phone] Mark Colorado M.D. [facility] [place] [address] 11/29/2023 11:20 AM CDT Lab Department of Laboratory Medicine and Pathology, [facility], in [place], [place] [address] [place] [phone] Loyda Lennon M.D. [address] [place] [phone] 11/29/2023 11:30 AM CDT Lab Department of Oncology in [place], [place] [address] [place] [phone] Loyda Lennon M.D. [address] [place] [phone] 11/29/2023 1:00 PM CDT Infusion Department of Oncology in [place], [place] [address] [place] [phone] Loyda Lnenon M.D. [address] [place] [phone] 12/03/2023 1:45 PM CDT Comprehensive Visit Department of Urology in [address] [phone] Mona Egan, PHoldenAHolden-Sara [address] [place] [phone] 12/05/2023 1:20 PM CDT Comprehensive Visit Department of Oncology in [place], [place] [address] [place] [phone] Letty Kate M.D. [address] [place] [phone] 12/10/2023 3:00 PM CDT Clinical Communication Virtual Review in [place], [place] [address] [place] [address] 12/10/2023 3:30 PM CDT Procedure visit Department of Urology in [place], [place] [address] [place] [address] aMrk [place] M.D. [address] [place] [address] [place] [address] 12/12/2023 3:45 PM CDT Appointment Department of Radiology, [facility], in [place], [place] [address] [place] [address] Na Hernandez M.D., Ph.D. [address] [place] [phone] 12/13/2023 6:00 AM CDT Lab Department of Laboratory Medicine and Pathology, [facility] in [place], [place] [address] [place] [address] Loyda Lennon M.D. [address] [place] [phone] 12/13/2023 6:20 AM CDT Lab Department of Infusion Therapy in [place], [place] [address] [place] [phone] Loyda Lennon M.D. [address] [place] [phone] 12/13/2023 11:10 AM CDT Office Visit Department of Oncology in [place], [place] [address] [place] [phone] Na Hernandez M.D., Ph.D. [address] [place] [phone] 12/13/2023 1:00 PM CDT Infusion Department of Oncology in [place], [place] [address] [place] [address] Loyda Lennon M.D. [address] [place] [phone] 12/20/2023 9:20 AM CDT Lab Department of Infusion Therapy in [place], [place] [address] [place] [phone] Loyda Lennon M.D. [address] [place] [phone] 12/20/2023 10:30 AM CDT Infusion Department of Oncology in [place], [place] [address] [place] [phone] Loyda Lennon M.D. [address] [place] [phone] 12/25/2023 10:30 AM CDT Appointment Division of Gastroenterology in [place], [place] [address] [place] [phone] Na Hernandez M.D., Ph.D. [address] [place] [phone] 12/27/2023 10:15 AM CDT Lab Department of Oncology in [address] [phone] Loyda Lennon M.D. [address] [place] [phone] 12/27/2023 10:30 AM CDT Lab Department of Laboratory Medicine and Pathology, [facility], in [place], [place] [address] [place] [phone] Loyda Lennon M.D. [address] [place] [phone] 12/27/2023 11:45 AM CDT Infusion Department of Oncology in [address] [phone] Loyda Lennon M.D. [address] [place] [phone] 01/03/2024 1:00 PM CDT Clinical Communication Virtual Review in [place], [place] [address] [place] [address] 01/10/2024 8:00 AM CDT Lab Department of Infusion Therapy in [place], [place] [address] [place] [phone] Loyda Lennon M.D. [address] [place] [phone] 01/10/2024 8:20 AM CDT Lab Department of Laboratory Medicine and Pathology, [facility], in [place], [place] [address] [place] [phone] Loyda Lennon M.D. [address] [place] [phone] 01/10/2024 10:30 AM CDT Office Visit Department of Oncology in [place], [place] [address] [place] [phone] Na Hernandez M.D., Ph.D. [address] [place] [phone] 01/10/2024 11:45 AM CDT Infusion Department of Oncology in [place], [place] [address] [place] [phone] Loyda Lennon M.D. [address] [place] [phone] 01/17/2024 8:45 AM CDT Lab Department of Oncology in [place], [place] [address] [place] [phone] Loyda Lennon M.D. [address] [place] [phone] 01/17/2024 10:00 AM CDT Infusion Department of Oncology in [place], [place] [address] [place] [phone] Loyda Lennon M.D. [address] [place] [phone] 01/24/2024 8:00 AM CDT Lab Department of Laboratory Medicine and Pathology, [facility] in [place], [place] [address] [place] [phone] Loyda Lennon M.D. [address] [place] [phone] 01/24/2024 8:15 AM CDT Lab Department of Oncology in [place], [place] [address] [place] [phone] Loyda Lennon M.D. [address] [place] [phone] 01/24/2024 9:15 AM CDT Infusion Department of Oncology in [place], [place] [address] [place] [phone] Loyda Lennon M.D. [address] [place] [phone] Scheduled Procedures Name Priority Associated Diagnoses Date/Ti me HEPATECTOMY RESECTION LIVER Cholangiocarcinoma (HCC) ULTRASOUND LIVER Cholangiocarcinoma (HCC) RECONSTRUCTION PORTAL VEIN Cholangiocarcinoma (HCC) documented as of this encounter Visit Diagnoses Diagnosis Pure Hypercholesterolemia- Primary Cholangiocarcinoma (HCC) Personal Attendant Current Drug Therapy, Chemotherapy Peritoneal Carcinomatosis (HCC) documented in this encounter Administered Medications Inactive Administered Medications - up to 3 most recent administrations Medication Order MAR Action Action Date Dose Rate Site dexAMETHasone injection 10 mg (DECADRON) 10 mg, intravenous, Once, On Sat08/13/23 at 1500, For 1 dose Given 08/13/2023 2:43 PM CDT 10 mg diphenhydrAMINE 25 mg in NaCl 0.9% IVPB (BENADRYL) 25 mg, intravenous, at 202 mL/hr, Administer over 15 Minutes, Once, On Sat08/13/23 at 1500, For 1 dose New Bag 08/13/2023 2:50 PM CDT 25 mg 202 mL/hr famotidine injection 20 mg (PEPCID) 20 mg, intravenous, Once, On Sat08/13/23 at 1500, For 1 dose Given 08/13/2023 2:40 PM CDT 20 mg ondansetron (PF) injection 8 mg (ZOFRAN) 8 mg, intravenous, Once, On Sat08/13/23 at 1500, For 1 dose Given 08/13/2023 2:41 PM CDT 8 mg PACLitaxeL 150 mg in NaCl 0.9% (non-PVC) 300 mL IVPB (TAXOL) 150 mg (rounded from 149.8 mg = 70 mg/m2 ? 2.14 m2 Treatment Plan BSA from Measured weight), intravenous, at 300 mL/hr, Administer over 1 Hours, Once, On Sat08/13/23 at 1630, For 1 dose, Administer immediately after the end of the CTX-009 infusion. Administer via 0.22 micron in-line filter. New Bag 08/13/2023 4:41 PM CDT 150 mg 300 mL/h [facility] IR[facility] [id number] CTX-009 900 mg in NaCl 0.9% (non-PVC) 250 mL IVPB 900 mg (10 mg/kg ? 90 kg Treatment plan Measured weight), intravenous, at 250 mL/hr, Administer over 1 Hours, Once, On Sat08/13/23 at 1530, For 1 dose, May administer 15 minutes [...] bag and tubing are non-PVC. New Bag 08/13/2023 3:25 PM CDT 900 mg 250 mL/hr sodium chloride 0.9 % injection 10-20 mL 10-20 mL, intra-catheter, As needed, line care, Starting on Sat08/13/23 at 1420, When IVAD accessed and infusing: Flush prior to and following infusion, between multiple consecutive infusions. 10 mL to each port/lumen. Given 08/13/2023 4:29 PM CDT 30 mL Given 08/13/2023 2:40 PM CDT 10 mL documented in this encounter Additional Health Concerns Infection Onset Date Last Indicated Resolved Time Protective Environment 11/07/2022 11/07/2022 documented as of this encounter Care Teams Gin Feeder Relationship Specialty Start Date End Date Mark [place] M.D. [address], [place] [phone] PCP - General Family Medicine 11/09/22 documented as of this encounter
--- OUTSIDE RECORDS SUMMARY | 2023-11-05 22:13 | XMS_ITS | Encounter Summary ---
Author Organization [facility] Address [address] [place] [address] Care Team Providers Care Restrike Hammer Operator Name Role Phone Mark Colorado M.D. 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 I have a [facility] place to live 09/10/2022 Sex [...] PM CDT Clinical Communication Virtual Review in [place], [place] 200 [place] [address] 11/15/2023 6:40 AM CDT Lab Department of Laboratory Medicine and Pathology, [facility] in [address] [phone] Loyda Lennon M.D. [address] [place] [phone] 11/15/2023 8:20 AM CDT Office Visit Department of Oncology in [address] [phone] Manjit Velasquez APRN, C.N.P., D.N.P. [address] [place] [phone] 11/15/2023 9:30 AM CDT Comprehensive Visit Department of Palliative Care in [address] [address] Patty Gomez APRN, C.N.P., M.S.N. [address] [place] [phone] 11/15/2023 2:15 PM CDT Infusion Department of Oncology in [place], [place] [address] [place] [phone] Loyda Lennon M.D. [address] [place] [phone] 11/22/2023 7:30 AM CDT Lab Department of Oncology in [place], [place] [address] [place] [phone] Loyda Lennon M.D. [address] [place] [phone] 11/22/2023 8:45 AM CDT Infusion Department of Oncology in [place], [place] [address] [place] [phone] Loyda Lennon M.D. [address] [place] [phone] 11/28/2023 3:30 PM CDT Clinical Communication Virtual Review in [place], [place] [address] [place] [address] 11/29/2023 9:00 AM CDT Procedure visit Department of Urology in [place], [place] [address] [place] [phone] Mark [place] M.D. [address] [place] [phone] 11/29/2023 11:20 AM CDT Lab Department of Laboratory Medicine and Pathology, [facility], in [place], [place] [address] [place] [phone] Loyda Lennon M.D. [address] [place] [phone] 11/29/2023 11:30 AM CDT Lab Department of Oncology in [place], [place] [address] [place] [phone] Loyda Lennon M.D. [address] [place] [address] 11/29/2023 1:00 PM CDT Infusion Department of Oncology in [place], [place] [address] [place] [phone] Loyda Lennon M.D. [address] [place] [phone] 12/03/2023 1:45 PM CDT Comprehensive Visit Department of Urology in [place], [place] [address] [place] [phone] Mona Egan P.A.-C. [address] [place] [address] 12/05/2023 1:20 PM CDT Comprehensive Visit Department of Oncology in [place], [place] [address] [place] [phone] Letty Kate M.D. [address] [place] [phone] 12/10/2023 3:00 PM CDT Clinical Communication Virtual Review in [place], [place] [address] [place] [address] 12/10/2023 3:30 PM CDT Procedure visit Department of Urology in [place], [place] [address] [place] [phone] Mark Colorado M.D. [address] [place] [address] 12/12/2023 3:45 PM CDT Appointment Department of Radiology, [facility], in [place], [place] [address] [place] [phone] Na Hernandez M.D., Ph.D. [address] [place] [phone] 12/13/2023 6:00 AM CDT Lab Department of Laboratory Medicine and Pathology, [facility], in [place], [place] [address] [place] [phone] Loyda Lennon M.D. [address] [place] [address] 12/13/2023 6:20 AM CDT Lab Department of Infusion Therapy in [place], [place] [address] [place] [phone] Loyda Lennon M.D. [address] [place] [phone] 12/13/2023 11:10 AM CDT Office Visit Department of Oncology in [address] [address] Na Hernandez M.D., Ph.D. [address] [place] [phone] 12/13/2023 1:00 PM CDT Infusion Department of Oncology in [address] [address] Loyda Lennon M.D. [address] [place] [phone] 12/20/2023 9:20 AM CDT Lab Department of Infusion Therapy in [address] [address] Loyda Lennon M.D. [address] [place] [phone] 12/20/2023 10:30 AM CDT Infusion Department of Oncology in [place], [place] [address] [place] [phone] Loyda Lennon M.D. [address] [place] [address] 12/25/2023 10:30 AM CDT Appointment Division of Gastroenterology in [place], [place] [address] [place] [phone] Na Hernandez M.D., Ph.D. [address] [place] [address] 12/27/2023 10:15 AM CDT Lab Department of Oncology in [place], [place] [address] [place] [phone] Loyda Lennon M.D. [address] [place] [phone] 12/27/2023 10:30 AM CDT Lab Department of Laboratory Medicine and Pathology, [facility] in [address] [phone] Loyda Lennon M.D. [address] [place] [phone] 12/27/2023 11:45 AM CDT Infusion Department of Oncology in [address] [phone] Loyda Lennon M.D. [address] [place] [phone] 01/03/2024 1:00 PM CDT Clinical Communication Virtual Review in [place], [place] [address] [place] [address] 01/10/2024 8:00 AM CDT Lab Department of Infusion Therapy in [place], [place] [address] [place] [phone] Loyda Lennon M.D. [address] [place] [phone] 01/10/2024 8:20 AM CDT Lab Department of Laboratory Medicine and Pathology, [facility] in [place], [place] [address] [place] [phone] Loyda Lennon M.D. [address] [place] [phone] 01/10/2024 10:30 AM CDT Office Visit Department of Oncology in [place], [place] [address] [place] [phone] Na Hernandez M.D., Ph.D. [address] [place] [address] 01/10/2024 11:45 AM CDT Infusion Department of Oncology in [place], [place] [address] [place] [phone] Loyda Lennon M.D. [address] [place] [address] 01/17/2024 8:45 AM CDT Lab Department of Oncology in [place], [place] [address] [place] [phone] Loyda Lennon M.D. [address] [place] [phone] 01/17/2024 10:00 AM CDT Infusion Department of Oncology in [address] [address] Loyda Lennon M.D. [address] [place] [phone] 01/24/2024 8:00 AM CDT Lab Department of Laboratory Medicine and Pathology, [facility], in [place], [place] [address] [place] [phone] Loyda Lennon M.D. [address] [place] [phone] 01/24/2024 8:15 AM CDT Lab Department of Oncology in [place], [place] [address] [place] [address] Loyda Lennon M.D. [address] [place] [address] 01/24/2024 9:15 AM CDT Infusion Department of Oncology in [place], [place] [address] [place] [address] Loyda Lennon M.D. [address] [place] [address] Scheduled Procedures Name Priority Associated Diagnoses Date/Ti me HEPATECTOMY RESECTION LIVER Cholangiocarcinoma (HCC) ULTRASOUND LIVER Cholangiocarcinoma (HCC) RECONSTRUCTION PORTAL VEIN Cholangiocarcinoma (HCC) documented as of this encounter Visit Diagnoses Diagnosis Cholangiocarcinoma (HCC)- Primary Fdc Current Drug Therapy, Chemotherapy Peritoneal Carcinomatosis (HCC) documented in this encounter Additional Health Concerns Infection Onset Date Last Indicated Resolved Time Protective Environment 11/07/2022 11/07/2022 documented as of this encounter Care Teams Restrike Hammer Operator Relationship Specialty Start Date End Date Mark [place] M.D. [address] [place] [address] PCP - General Family Medicine 11/09/22 documented as of this encounter
--- OUTSIDE RECORDS SUMMARY | 2023-11-05 22:13 | XMS_ITS | Encounter Summary ---
Author Organization [facility] Address [address] [place] [address] Care Team Providers Care Mortgage Processing Clerk Name Role Phone Mark Colorado M.D. Primary Care Provider [phone] Encounter Details Date Type Department Care Team (Late st Contact Info) Description 08/02/2023 5:09 PM CDT Anesthesia Event Division of Gastroenterology in [place], [place] [address] [place] [phone] Livan Apodaca, OPS ANALYST, AD TRAFFICKER, DNAP [address] [place] [phone] Mor Messina M.D. [address] [place] [phone] Anesthesia Record Procedure Summary Procedure Name Responsible Anesthesiologist Anesthesia Start Time Anesthesia Stop Time ERCP Livan Apodaca AP RN, AD TRAFFICKER, DNAP 08/02/23 1709 08/02/23 1746 Events Date Time Event Comment 08/02/2023 1709 An Start Machine/Equipme nt Checked Infection Precautions Followed Procedure/Site Verified NPO Status Verified Supine Standard ASA Monitors Applied 1712 An Induction 1713 An Intubation 1719 Turnover to Proceduralist 1722 Proc Start 1734 Proc Fin 1736 Turnover to ANE Staff 1740 Airway Removal Criteria Met 1740 Extubation/Airway Removed 1741 an stop data 1746 An End I completed my handoff to [...] Total fentanyl injection 50 mcg/mL 50 mcg succinylcholine 20 mg/mL injection 140 m g ondansetron 4 mg/2 mL injection 4 mg propofol 10 mg/mL infusion 100.65 mg propofol 10 mg/mL injection 150 mg levoFLOXacin in D5W IVPB 750 mg (LEVAQUI N) 750 mg Lactated Ringers Free Drip 200 mL * Agents No agents on file. * Blood No blood administrations on file. Lines, Drains, and Airways Type Details Placement Removal Implanted Port Single Lumen 10/23/22; Right; Chest 10/23/22 0000 by Talia Villalta, R.N. (RETIRED- use LDA Wound) Puncture 10/23/22; 0835; No; Neck; Right; ivad placement incision lower right neck/upper right chest; 10/22/23; 1216; old LDA, no longer present 10/23/22 0835 by Marv Gilmore, R.N. 10/22/23 1216 by Chyna Rutledge, R.N. Implanted Port Single Lumen 10/23/22; 0848; Permanent (tunneled, implanted); Yes; Yes; Yes; Yes; Chlorhexidine (Preferred); Yes; Cap, Gown, Gloves, Large drape, Mask (Clinician), Mask (All others in room); N/A; Non-valved; Right; Chest; Power injectable; dr gonzales; 10/22/23; 0940 (not present on admission) 10/23/22 0848 by Marv Gilmore R.N. 10/22/23 0940 by Alma Stewart R.N. (RETIRED- use LDA Wound) Puncture 10/24/22; 0949; No; Abdomen; Right, Quadrant, Upper; liver bx; 10/22/23; 1217; old LDA, no longer present 10/24/22 0949 by Freida Tobar R.N. 10/22/23 1217 by Chyna Rutledge R.N. Scope Sites 01/09/23; 1656; Abdo men; 1; Upper, Mid; 2; Umbilicus; 10/22/23; 1217; old LDA, no longer present 01/09/23 1656 by Benson Brasher R.N. 10/22/23 1217 by Chyna Rutledge R.N. Peripheral IV Placement Date: 06/05/23; Placement Time: 1257; Catheter Size: 20 G; Orientation: Anterior, Left, Lower, Proximal; Location: Antecubital; Site Prep: Alcohol; Inserted by: [facility]; Insertion Attempts: 1; Removal Date: 08/02/23; Removal Time: 184; Removal Reason: No longer in place 06/05/23 1257 by Dora Tiwari RHoldenNHolden 08/02/23 1844 by Pretty Luna RMagdalena ETT Placement Date: 08/02/23; Placement Time: 171 (created via procedure documentation); Mask Ventilation: Easy mask; Technique: Video laryngoscopy; Type: Standard ETT; Single Lumen Tube Size: 7 mm; Cuffed: Yes; Location: Oral; Grade View: Grade 1; Placement Verification: Bilateral breath sounds, Positive ETCO2, Symmetrical chest wall movement; Removal Date: 08/02/23; Removal Time: 17408/02/23 171 by Livan Apodaca APRN, LINDA, DNAP 08/02/23 1740 by Livan Apodaca APRN, CRNA, DNAP documented in this encounter Social History Tobacco [...] OR Notes * Anesthesia Postprocedure Evaluation - Livan Apodaca APRN, CRNA, DNAP - 08/02/2023 5:46 PM CDT Patient: Jorge Luis Sepulveda Procedure Summary Date: 08/02/23 Room / Location: Division of Gastroenterology in [place], [place] Anesthesia Start: 170 Anesthesia Stop: 1745 Procedure: ERCP Diagnosis: Cholangiocarcinoma (HCC) Stricture Biliary (HCC) Scheduled Providers: Dallas Vallecillo M.D. Responsible Provider: Livan Apodaca APRN, CRNA, DNAP Anesthesia Type: general ASA Status: 3 Anesthesia Type: general Last vitals Vitals Value Taken Time BP 139/89 08/02/23 1745 Temp 36.5 ??C 08/02/23 1745 Pulse 79 08/02/23 1745 Resp 13 08/02/23 1745 SpO2 96 % 08/02/23 1745 Vitals shown include unfiled device data. Please reference Vitals flowsheet for most recent vital signs. Anesthesia Post Evaluation Patient Disposition: dismissal Cardiovascular status: hemodynamics (HR & BP) acceptable Respiratory status: patent airway with spontaneous effort Temperature: normothermic Oxygen requirements: room air Level of consciousness: awake Pain score: pain adequately controlled and/or at baseline Post Op nausea/vomiting: none Hydration status: euvolemic * Anesthesia Procedure Notes - Livan Apodaca APRN, CRNA, DNAP - 08/02/2023 5:26 PM CDTAssociated Order(s): Airway Airway Date/Time: 08/02/2023 5:13 PM Performed by: Livan Apodaca APRN, CRNA, DNAP Authorized by: Livan Apodaca APRN, CRNA, DNAP Patient location during procedure: OR / Procedure Area PROCEDURE DETAILS: Mask difficulty assessment: easy mask Final airway type: video laryngoscope Laryngeal Manipulation: no Final best view of glottic structures - Cormack/Lehane Score: grade 1 ETT location: oral VL device: glide scope Lawrence scope blade size: 4 Tube size: 7 ETT distance at teeth/gum: 21 Oral tube type: standard ETT Cuffed: yes Leak Test Performed: no Airway confirmation: bilateral breath sounds, positive ETCO2 and bilateral chest rise Other previous techniques attempted: none PRE PROCEDURE DETAILS: Pre evaluation for airway management: procedure Urgency: elective Preoxygenation: bag valve mask SEDATION / ANESTHESIA Anesthesia method: anesthesia POST PROCEDURE DETAILS: Procedure outcome: successful Notable Events: no complications * Anesthesia Preprocedure Evaluation - Mor Messina M.D. - 08/02/2023 4:25 PM CDT Preprocedure Anesthesia & H&P Assessment Procedure Summary Date/Time: 08/02/23 1445 Scheduled providers: Dallas Vallecillo M.D. 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 Malignant Neoplasm (+) Peritoneal Carcinomatosis (HCC) OBJECTIVE PHYSICAL EXAMINATION Airway (HEENT) Mallampati: III TM Distance: >3 FB Neck ROM: Full Mouth Opening: >3 cm Cardiovascular Rhythm: Regular Rate: Normal Cardiovascular Assessment: cardiovascular normal Functional Capacity: <4 METS Pulmonary Pulmonary Assessment: Clear General / Constitutional Constitutional Assessment: Normal General State of Health:: healthy appearing and calm ASSESSMENT / PLAN ANESTHESIA PLAN ASA: 3 Anesthesia Plan: general Patient seen and allergies reviewed, anesthesia plan and risks discussed directly with patient /legal guardian or through an inspector water pollution control. Risks/Benefits/Alternatives of Blood transfusion discussed with patient [...] PM CDT Clinical Communication Virtual Review in [address] [phone] 11/15/2023 6:40 AM CDT Lab Department of Laboratory Medicine and Pathology, [facility] in [address] [phone] Loyda Lennon M.D. [address] [place] [phone] 11/15/2023 8:20 AM CDT Office Visit Department of Oncology in [address] [phone] Manjit Velasquez APRN, C.N.P., D.N.P. [address] [place] [phone] 11/15/2023 9:30 AM CDT Comprehensive Visit Department of Palliative Care in [address] [phone] Patty Gomez APRN, C.N.P., M.S.N. [address] [place] [phone] 11/15/2023 2:15 PM CDT Infusion Department of Oncology in [place], [place] [address] [place] [phone] Loyda Lennon M.D. [address] [place] [phone] 11/22/2023 7:30 AM CDT Lab Department of Oncology in [place], [place] [address] [place] [phone] Loyda Lennon M.D. [address] [place] [phone] 11/22/2023 8:45 AM CDT Infusion Department of Oncology in [address] [phone] Loyda Lennon M.D. [address] [place] [phone] 11/28/2023 3:30 PM CDT Clinical Communication Virtual Review in [address] [phone] 11/29/2023 9:00 AM CDT Procedure visit Department of Urology in [address] [phone] Mark Colorado M.D. [address] [place] [phone] 11/29/2023 11:20 AM CDT Lab Department of Laboratory Medicine and Pathology, [facility], in [place], [place] [address] [place] [phone] Loyda Lennon M.D. [address] [place] [phone] 11/29/2023 11:30 AM CDT Lab Department of Oncology in [place], [place] [address] [place] [phone] Loyda Lennon M.D. [address] [place] [phone] 11/29/2023 1:00 PM CDT Infusion Department of Oncology in [place], [place] [address] [place] [phone] Loyda Lennon M.D. [address] [place] [address] 12/03/2023 1:45 PM CDT Comprehensive Visit Department of Urology in [place], [place] [address] [place] [phone] Mona Egan P.A.-C. [address] [place] [phone] 12/05/2023 1:20 PM CDT Comprehensive Visit Department of Oncology in [place], [place] [address] [place] [phone] Letty Kate M.D. [address] [place] [phone] 12/10/2023 3:00 PM CDT Clinical Communication Virtual Review in [place], [place] [address] [place] [address] 12/10/2023 3:30 PM CDT Procedure visit Department of Urology in [place], [place] [address] [place] [phone] Mark Colorado M.D. [facility] [place] [phone] 12/12/2023 3:45 PM CDT Appointment Department of Radiology, [facility], in [place], [place] [address] [place] [address] Na Hernandez M.D., Ph.D. [address] [place] [phone] 12/13/2023 6:00 AM CDT Lab Department of Laboratory Medicine and Pathology, [facility], in [place], [place] [address] [place] [phone] Loyda Lennon M.D. [address] [place] [phone] 12/13/2023 6:20 AM CDT Lab Department of Infusion Therapy in [place], [place] [address] [place] [phone] Loyda Lennon M.D. [address] [place] [phone] 12/13/2023 11:10 AM CDT Office Visit Department of Oncology in [address] [phone] Na Hernandez M.D., Ph.D. [address] [place] [phone] 12/13/2023 1:00 PM CDT Infusion Department of Oncology in [address] [phone] Loyda Lennon M.D. [address] [place] [phone] 12/20/2023 9:20 AM CDT Lab Department of Infusion Therapy in [place], [place] [address] [place] [phone] Loyda Lennon M.D. [address] [place] [phone] 12/20/2023 10:30 AM CDT Infusion Department of Oncology in [place], [place] [address] [place] [phone] Loyda Lennon M.D. [address] [place] [phone] 12/25/2023 10:30 AM CDT Appointment Division of Gastroenterology in [place], [place] [address] [place] [phone] Na Hernandez M.D., Ph.D. [address] [place] [phone] 12/27/2023 10:15 AM CDT Lab Department of Oncology in [place], [place] [address] [place] [phone] Loyda Lennon M.D. [address] [place] [phone] 12/27/2023 10:30 AM CDT Lab Department of Laboratory Medicine and Pathology, [facility], in [place], [place] [address] [place] [phone] Loyda Lennon M.D. [address] [place] [phone] 12/27/2023 11:45 AM CDT Infusion Department of Oncology in [address] [phone] Loyda Lennon M.D. [address] [place] [phone] 01/03/2024 1:00 PM CDT Clinical Communication Virtual Review in [place], [place] [address] [place] [address] 01/10/2024 8:00 AM CDT Lab Department of Infusion Therapy in [place], [place] [address] [place] [phone] Loyda Lennon M.D. [address] [place] [phone] 01/10/2024 8:20 AM CDT Lab Department of Laboratory Medicine and Pathology, [facility] in [place], [place] [address] [place] [phone] Loyda Lennon M.D. [address] [place] [phone] 01/10/2024 10:30 AM CDT Office Visit Department of Oncology in [place], [place] [address] [place] [phone] Na Hernandez M.D., Ph.D. [address] [place] [phone] 01/10/2024 11:45 AM CDT Infusion Department of Oncology in [place], [place] [address] [place] [phone] Loyda Lennon M.D. [address] [place] [phone] 01/17/2024 8:45 AM CDT Lab Department of Oncology in [place], [place] [address] [place] [phone] Loyda Lennon M.D. [address] [place] [phone] 01/17/2024 10:00 AM CDT Infusion Department of Oncology in [place], [place] [address] [place] [phone] Loyda Lennon M.D. [address] [place] [phone] 01/24/2024 8:00 AM CDT Lab Department of Laboratory Medicine and Pathology, [facility], in [place], [place] [address] [place] [address] Loyda Lennon M.D. [address] [place] [phone] 01/24/2024 8:15 AM CDT Lab Department of Oncology in [place], [place] [address] [place] [phone] Loyda Lennon M.D. [address] [place] [phone] 01/24/2024 9:15 AM CDT Infusion Department of Oncology in [place], [place] [address] [place] [phone] Loyda Lennon M.D. [address] [place] [phone] Scheduled Procedures Name Priority Associated Diagnoses Date/Ti me HEPATECTOMY RESECTION LIVER Cholangiocarcinoma (HCC) ULTRASOUND LIVER Cholangiocarcinoma (HCC) RECONSTRUCTION PORTAL VEIN Cholangiocarcinoma (HCC) documented as of this encounter Procedures Procedure Name Priority Date/Time Associated Diagnosis Comments LDA ANE ENDOTRACHEAL AIRWAY Routine 08/02/2023 5:13 PM CDT documented in this encounter Results * LDA ANE ENDOTRACHEAL AIRWAY (08/02/2023 5:13 PM CDT) Narrative Livan Apodaca APRN, CRNA, DNAP - 08/02/2023 5:13 PM CDT Livan Apodaca APRN, CRNA, DNAP ? 08/02/2023 ??5:26 PM Airway Date/Time: 08/02/2023 5:13 PM Performed by: Livan Apodaca APRN, CRNA, DNAP Authorized by: Livan Apodaca APRN, CRNA, DNAP ?? Patient location during procedure: OR / Procedure Area PROCEDURE DETAILS: Mask difficulty assessment: easy mask Final airway type: video laryngoscope Laryngeal Manipulation: no ?? Final best view of glottic structures - Cormack/Lehane Score: grade 1 ETT location: oral VL device: glide scope Lawrence scope blade size: 4 Tube size: 7 ETT distance at teeth/gum: 21 Oral tube type: standard ETT Cuffed: yes Leak Test Performed: no ?? Airway confirmation: bilateral breath sounds, positive ETCO2 and bilateral chest rise Other previous techniques attempted: none PRE PROCEDURE DETAILS: Pre evaluation for airway management: procedure Urgency: elective Preoxygenation: bag valve mask SEDATION / ANESTHESIA Anesthesia method: anesthesia POST PROCEDURE DETAILS: ? Procedure outcome: successful ?? Notable Events: no complications Livan Apodaca OPS ANALYST, AD TRAFFICKER, DNAP ANESTHE NAYELY ORDERABLES documented in this encounter Visit Diagnoses Not on filedocumented in this encounter Administered Medications Inactive Administered Medications - up to 3 most recent administrations Medication Order MAR Action Action Date Dose Rate Site fentaNYL injection (SUBLIMAZE) intravenous, As needed, Starting on Sat08/02/23 at 1712, Anesthesia Intra-op Given 08/02/2023 5:12 PM CDT 50 mcg Lactated Ringer's intravenous, Continuous Infusion: Per Instructions PRN, Starting on Sat08/02/23 at 1710, Anesthesia Intra-op New Bag 08/02/2023 5:10 PM CDT levoFLOXacin in D5W IVPB 750 mg (LEVAQUIN) 750 mg, intravenous, at 100 mL/hr, Administer over 90 Minutes, Once, On Sat08/02/23 at 1630, For 1 dose, Intra-Op, Drug Monitoring Program: Pharmacist to adjust medication dosing based on indication and drug clearance factors., Indications: Intraprocedure ppx Given 08/02/2023 5:23 PM CDT 750 mg ondansetron (PF) injection (ZOFRAN) intravenous, As needed, Starting on Sat08/02/23 at 1728, Anesthesia Intra-op Given 08/02/2023 5:28 PM CDT 4 mg propofol 10 mg/mL infusion (DIPRIVAN) intravenous, Continuous Infusion: Per Instructions PRN, Starting on Sat08/02/23 at 1722, Anesthesia Intra-op Rate/Dose Change 08/02/2023 5:31 PM CDT 50 mcg/kg/min 27.45 mL/hr New Bag 08/02/2023 5:22 PM CDT 100 mcg/kg/min 54.9 mL/h r propofoL injection (DIPRIVAN) intravenous, As needed, Starting on Sat08/02/23 at 1712, Anesthesia Intra-op Given 08/02/2023 5:12 PM CDT 150 mg succinylcholine (PF) injection (ANECTINE) intravenous, As needed, Starting on Sat08/02/23 at 1712, Anesthesia Intra-op Given 08/02/2023 5:12 PM CDT 140 mg documented in this encounter Additional Health Concerns Infection Onset Date Last Indicated Resolved Time Protective Environment 11/07/2022 11/07/2022 documented as of this encounter Care Teams Mortgage Processing Clerk Relationship Specialty Start Date End Date Mark Colorado M.D. [address] [place] [address] PCP - General Family Medicine 11/09/22 documented as of this encounter
--- OUTSIDE RECORDS SUMMARY | 2023-11-05 22:13 | XMS_ITS | Encounter Summary ---
Author Organization [facility] Address [address] [place] [address] Care Team Providers Care Acoustic Warfare Analyst Name Role Phone Mark Colorado M.D. Primary Care Provider [phone] Reason for Referral * Outpatient (Routine) - Closed Specialty Diagnoses / Procedures Referred By Chloe t Referred To Contact Diagnoses Cholangiocarcinoma (HCC) Stricture Biliary (HCC) Procedures ERCP Na Hernandez M.D., Ph.D. [address] [place] [address] [facility] Referral ID Status Reason Start Date Expiration Date Visits Re quested Visits Authorized [id number] Closed 05/10/2023 05/09/2024 1 1 Reason for Visit * Outpatient (Routine) - Closed Specialty Diagnoses / Procedures Referred By Chloe t Referred To Contact Diagnoses Cholangiocarcinoma (HCC) Stricture Biliary (HCC) Procedures ERCP Na Hernandez M.D., Ph.D. [address] [place] [phone] [facility] Referral ID Status Reason Start Date Expiration Date Visits Re quested Visits Authorized [id number] Closed 05/10/2023 05/09/2024 1 1 Encounter Details Date Type Department Care Team (Latest Contact Info) Description 08/02/2023 1:10 PM CDT - 08/02/2023 3:45 PM CDT Hospital Encounter Division of Gastroenterology in [place], [place] [address] [place] [phone] Na Hernandez M.D., Ph.D. [address] [place] [phone] Dallas Vallecillo M.D. [address] [place] [phone] Cholangiocarcinoma (HCC); Stricture Biliary (HCC) Discharge Disposition: Home or Self Care [...] your living situation today? I have a [facility] place to live 09/10/2022 Sex and Gender Information Value Date Recorded Sex Assigned at Male 09/10/2022 12:02 PM CDT Gender Identity Male 09/10/2022 12:02 PM CDT Sexual Orientation Straight 09/10/2022 12 :02 PM CDT documented as of this encounter Last Filed Vital Signs Vital Sign Reading Time Taken Comments Blood Pressure 139/66 08/02/2023 3:45 PM CDT Pulse 57 08/02/2023 3:45 PM CDT Temperature 36.9 ??C (98.4 ??F) 08/02/2023 3:40 PM CD T Respiratory Rate 16 08/02/2023 3:45 PM CDT Oxygen Saturation 98% 08/02/2023 3:45 PM CDT Inhaled Oxygen Concentration - - Weight - - Height - - Body Mass Index - - documented in this encounter Medications at Time [...] mcg by mouth every other day. 12/05/2021 docusate sodium (Colace) 100 mg capsule Take 200 mg by mouth daily. glucosamine ckf-gmihkfgpab-npl 500-200-150 mg tablet Take 1 tablet by [...] 02/14/2023 prochlorperazine (COMPAZINE) 10 mg tabletIndications:Ch olangiocarcinoma (HCC),Usp Current Drug Therapy, Chemotherapy Take 1 tablet (10 mg total) by mouth every 6 (six) hours as needed for nausea or vomiting (unrelieved by ondansetron). 30 tablet 3 11/02/2022 11/02/2023 amLODIPine (NORVASC) 5 mg tablet Take 1 tablet (5 mg total) by mouth daily. 30 tablet 3 07/16/2023 08/05/2023 fluticasone propionate (FLONASE) 50 mcg/actuation nasal spray Administer 2 sprays into each nostril daily. 16 g 3 02/14/2023 10/24/2023 HYDROmorphone (DILAUDID) 2 mg tabletIndications:Ch ronic Pain/Nonacute Pain Take 1-2 tablets (2-4 mg total) by mouth every 4 (four) hours as needed for moderate pain or score 4-6 of 10 Indication: Chronic Pain/Nonacute Pain. 60 tablet 07/05/2023 09/02/2023 lisinopriL (PRINIVIL,ZESTRIL) 5 mg tablet Take 1 tablet (5 mg total) by mouth daily. 30 tablet 3 08/05/2023 09/11/2023 ondansetron (ZOFRAN) 8 mg tabletIndications:Ch olangiocarcinoma (HCC),Usp Current Drug Therapy, Chemotherapy Take 1 tablet (8 mg total) by mouth every 8 (eight) hours as needed for nausea or vomiting. 30 tablet 3 11/02/2022 10/02/2023 documented as of this encounter Plan of Treatment Upcoming Encounters Date Type Department Care Team (Latest Contact Info) Description 11/07/2023 3:15 PM CDT Clinical Communication Virtual Review in [place], [place] [address] [place] [address] 11/15/2023 6:40 AM CDT Lab Department of Laboratory Medicine and Pathology, [facility], in [place], [place] [address] [place] [phone] Loyda Lennon M.D. [address] [place] [phone] 11/15/2023 8:20 AM CDT Office Visit Department of Oncology in [address] [phone] Manjit Velasquez APRN C.N.P., D.N.P. [address] [place] [phone] 11/15/2023 9:30 AM CDT Comprehensive Visit Department of Palliative Care in [place], [place] [address] [place] [phone] Patty Gomez APRN, C.N.P., M.S.N. [address] [place] [phone] 11/15/2023 2:15 PM CDT Infusion Department of Oncology in [place], [place] [address] [place] [phone] Loyda Lennon M.D. [address] [place] [phone] 11/22/2023 7:30 AM CDT Lab Department of Oncology in [place], [place] [address] [place] [phone] Loyda Lennon M.D. [address] [place] [phone] 11/22/2023 8:45 AM CDT Infusion Department of Oncology in [place], [place] [address] [place] [phone] Loyda Lennon M.D. [address] [place] [phone] 11/28/2023 3:30 PM CDT Clinical Communication Virtual Review in [place], [place] [address] [place] [address] 11/29/2023 9:00 AM CDT Procedure visit Department of Urology in [place], [place] [address] [place] [phone] Mark Colorado M.D. [facility] [place] [phone] 11/29/2023 11:20 AM CDT Lab Department of Laboratory Medicine and Pathology, [facility], in [place], [place] [address] [place] [phone] Loyda Lennon M.D. [address] [place] [phone] 11/29/2023 11:30 AM CDT Lab Department of Oncology in [place], [place] [address] [place] [phone] Loyda Lennon M.D. [address] [place] [phone] 11/29/2023 1:00 PM CDT Infusion Department of Oncology in [place], [place] [address] [place] [phone] Loyda Lennon M.D. [address] [place] [phone] 12/03/2023 1:45 PM CDT Comprehensive Visit Department of Urology in [address] [phone] Mona Egan, PHoldenAHolden-Sara [address] [place] [phone] 12/05/2023 1:20 PM CDT Comprehensive Visit Department of Oncology in [place], [place] [address] [place] [phone] Letty Kate M.D. [address] [place] [phone] 12/10/2023 3:00 PM CDT Clinical Communication Virtual Review in [place], [place] [address] [place] [address] 12/10/2023 3:30 PM CDT Procedure visit Department of Urology in [place], [place] [address] [place] [address] Mark Colorado M.D. [address] [place] [address] [place] [phone] 12/12/2023 3:45 PM CDT Appointment Department of Radiology, [facility], in [place], [place] [address] [place] [address] Na Hernandez M.D., Ph.D. [address] [place] [phone] 12/13/2023 6:00 AM CDT Lab Department of Laboratory Medicine and Pathology, [facility] in [place], [place] [address] [place] [address] Loyda Lennon M.D. [address] [place] [phone] 12/13/2023 6:20 AM CDT Lab Department of Infusion Therapy in [place], [place] [address] [place] [phone] Loyda Lennon M.D. [address] [place] [phone] 12/13/2023 11:10 AM CDT Office Visit Department of Oncology in [place], [place] [address] [place] [phone] Na Hernandez M.D., Ph.D. [address] [place] [phone] 12/13/2023 1:00 PM CDT Infusion Department of Oncology in [place], [place] [address] [place] [address] Loyda Lennon M.D. [address] [place] [phone] 12/20/2023 9:20 AM CDT Lab Department of Infusion Therapy in [place], [place] [address] [place] [phone] Loyda Lennon M.D. [address] [place] [phone] 12/20/2023 10:30 AM CDT Infusion Department of Oncology in [place], [place] [address] [place] [phone] Loyda Lennon M.D. [address] [place] [phone] 12/25/2023 10:30 AM CDT Appointment Division of Gastroenterology in [place], [place] [address] [place] [phone] Na Hernandez M.D., Ph.D. [address] [place] [phone] 12/27/2023 10:15 AM CDT Lab Department of Oncology in [address] [phone] Loyda Lennon M.D. [address] [place] [phone] 12/27/2023 10:30 AM CDT Lab Department of Laboratory Medicine and Pathology, [facility], in [place], [place] [address] [place] [phone] Loyda Lennon M.D. [address] [place] [phone] 12/27/2023 11:45 AM CDT Infusion Department of Oncology in [address] [phone] Loyda Lennon M.D. [address] [place] [phone] 01/03/2024 1:00 PM CDT Clinical Communication Virtual Review in [place], [place] [address] [place] [address] 01/10/2024 8:00 AM CDT Lab Department of Infusion Therapy in [place], [place] [address] [place] [phone] Loyda Lennon M.D. [address] [place] [phone] 01/10/2024 8:20 AM CDT Lab Department of Laboratory Medicine and Pathology, [facility], in [place], [place] [address] [place] [phone] Loyda Lennon M.D. [address] [place] [phone] 01/10/2024 10:30 AM CDT Office Visit Department of Oncology in [place], [place] [address] [place] [phone] Na Hernandez M.D., Ph.D. [address] [place] [phone] 01/10/2024 11:45 AM CDT Infusion Department of Oncology in [place], [place] [address] [place] [phone] Loyda Lennon M.D. [address] [place] [phone] 01/17/2024 8:45 AM CDT Lab Department of Oncology in [place], [place] [address] [place] [phone] Loyda Lennon M.D. [address] [place] [phone] 01/17/2024 10:00 AM CDT Infusion Department of Oncology in [place], [place] [address] [place] [phone] Loyda Lennon M.D. [address] [place] [phone] 01/24/2024 8:00 AM CDT Lab Department of Laboratory Medicine and Pathology, [facility] in [place], [place] [address] [place] [phone] Loyda Lennon M.D. [address] [place] [phone] 01/24/2024 8:15 AM CDT Lab Department of Oncology in [place], [place] [address] [place] [phone] Loyda Lennon M.D. [address] [place] [phone] 01/24/2024 9:15 AM CDT Infusion Department of Oncology in [place], [place] [address] [place] [phone] Loyda Lennon M.D. [address] [place] [phone] Scheduled Procedures Name Priority Associated Diagnoses Date/Ti me HEPATECTOMY RESECTION LIVER Cholangiocarcinoma (HCC) ULTRASOUND LIVER Cholangiocarcinoma (HCC) RECONSTRUCTION PORTAL VEIN Cholangiocarcinoma (HCC) documented as of this encounter Procedures Procedure Name Priority Date/Time Associated Diagnosis Comments ERCP Routine 08/02/2023 4:39 PM CDT Cholangiocarcinoma (HCC) Stricture Biliary (HCC) ERCP Routine 08/02/2023 4:39 PM CDT Cholangiocarcinoma (HCC) Stricture Biliary (HCC) documented in this encounter Results * ERCP (08/02/2023 4:39 PM CDT) 08/02/2023 4:39 PM CDT Impressions [facility] - 08/02/2023 5:50 PM CDT Post-op Diagnoses: ? - Prior biliary sphincterotomy appeared open. ? - Two stents from the left hepatic duct and the right hepatic duct were ? seen in the major papilla, both in good position. ? - Two stents were removed from the left hepatic duct and the right ? hepatic duct. ? - The biliary tree was swept and nothing was found. ? - One 10 Croatian 20 cm Johlin temporary plastic biliary stent was placed ? into the left hepatic duct. ? - One 10 Croatian 18.5 cm Johlin temporary plastic biliary stent was ? placed into the right hepatic duct. Narrative [facility] - 08/02/2023 5:50 PM CDT G[facility] 2 GI Patient Name: Jorge Luis Sepulveda Date of : 1955 Age: 68 Procedure Date: 08/02/2023 Procedure: ? ERCP, balloon sweep, change of 2 biliary stents Providers: ? Dallas Vallecillo MD Referring Provider: ?Na Hernandez Pre-op Diagnoses: ?Stent change, Bile duct stricture, Cholangiocarcinoma Recommendation: ? - Discharge patient to home. ? - Patient has a contact number available for emergencies. The signs and ? symptoms of potential delayed complications were discussed with the ? patient. Return to normal activities tomorrow. Written discharge ? instructions were provided to the patient. ? - Levaquin (levofloxacin) 500 mg PO daily for 5 days, 1st dose tomorrow ? morning. ? - Return to referring physician as previously scheduled. ? - Repeat ERCP in approximately 3 months to exchange stents. Findings: ? Two biliary stents were visible on the cost accounting manager film. The esophagus was ? successfully intubated under direct vision without detailed examination ? of the pharynx, larynx, and associated structures, and upper GI tract. ? The upper GI tract was grossly normal. A biliary sphincterotomy had been ? performed. The sphincterotomy appeared open. Two temporary plastic ? biliary stents originating in the left hepatic duct and the right ? hepatic duct were emerging from the major papilla in good position. Two ? stents were removed from the left hepatic duct and the right hepatic ? duct using a snare. A 0.035 inch angled Glidewire was passed into the ? biliary tree. The 8.5 mm balloon was passed over the guidewire and the ? bile duct was then deeply cannulated. Contrast was injected. I ? personally interpreted the bile duct images. There was brisk flow of ? contrast through the ducts. Image quality was excellent. Contrast ? extended to the hepatic ducts. In the interest of patient safety, we ? took care not to unnecessarily over-opacify upstream branch ducts ? anymore than needed for the stent exchange. Opacification of the entire ? biliary tree was successful in the selective fashion. To discover ? objects, the biliary tree was swept with an 8.5 mm balloon starting at ? the left intrahepatic duct(s) and right intrahepatic duct(s). Nothing ? was found. One 10 Fr by 20 cm Johlin transpapillary temporary plastic ? biliary stent was placed into the left hepatic duct. Bile flowed through ? the stent. The stent was in good position. One 10 Fr by 18.5 cm Johlin ? transpapillary temporary plastic biliary stent was placed into the right ? hepatic duct. Bile flowed through the stent. The stent was in good ? position. Drainage was excellent. Procedural Details: ? The patient was seen, [...] were monitored continuously. The Duodenoscope was introduced through the ? mouth, and advanced to the duodenum and used to inject contrast into the ? bile duct. The ERCP was accomplished without difficulty. The patient ? tolerated the procedure well. Complications: ? No immediate complications. Estimated Blood Loss: ?Estimated blood loss: none. Attending Participation: I personally performed the entire procedure. Dallas Vallecillo MD 08/02/2023 5:50:02 PM This report has been signed electronically. Number of Addenda: 0 Note Initiated On: 08/02/2023 4:39 PM Na Hernandez M.D., Ph.D. GI PROCEDUR E ORDERABLES Performing Organization Address City/State/ZIP Co wi Phone Number [facility] documented in this encounter Visit Diagnoses Diagnosis Cholangiocarcinoma (HCC) Stricture Biliary (HCC) documented in this encounter Administered Medications Inactive Administered Medications - up to 3 most recent administrations Medication Order MAR Action Action Date Dose Rate Site heparin flush 500-1,000 Units 500-1,000 Units, intra-catheter, During hospitalization, line care, Prior to discharge, Starting on Sat08/02/23 at 1756, For 1 dose, Implanted Vascular Access Device (IVAD) Venous Non-Valved: flush 5 mL (500 units) per port/lumen following saline flush prior to discharge. Given 08/02/2023 6:34 PM CDT 500 Units Lactated Ringer's 20 mL/hr, intravenous, Continuous, Starting on Sat08/02/23 at 1800, PACU & Post-Op Continued from OR 08/02/2023 5:46 PM CDT 20 mL/hr 20 mL/hr sodium chloride 0.9 % injection 10-20 mL 10-20 mL, intravenous, During hospitalization, line care, Prior to discharge, Starting on Sat08/02/23 at 1756, For 1 dose, Implanted Vascular Access Device (IVAD) Venous Non-Valved: Flush 10 mL per port/lumen followed by heparin flush prior to discharge. Given 08/02/2023 6:34 PM CDT 10 mL documented in this encounter Additional Health Concerns Infection Onset Date Last Indicated Resolved Time Protective Environment 11/07/2022 11/07/2022 documented as of this encounter Care Teams Acoustic Warfare Analyst Relationship Specialty Start Date End Date Mark Colorado M.D. [address], [place] [phone] PCP - General Family Medicine 11/09/22 documented as of this encounter
--- OUTSIDE RECORDS SUMMARY | 2023-11-05 22:13 | XMS_ITS | Encounter Summary ---
Author Organization [facility] Address [address] [place] [address] Care Team Providers Care Billiard Table Repairer Name Role Phone Mark Colorado M.D. Primary Care Provider [phone] Encounter Details Date Type Department Care Team (Latest Contact Info) Description 08/02/2023 4:40 PM CDT Ancillary Procedure Department of Gastroenterology [...] living situation today? I have a [facility] place to live 09/10/2022 Sex [...] PM CDT Clinical Communication Virtual Review in [place], [place] [address] [place] [address] 11/15/2023 6:40 AM CDT Lab Department of Laboratory Medicine and Pathology, [facility], in [address] [phone] Loyda Lennon M.D. [address] [place] [phone] 11/15/2023 8:20 AM CDT Office Visit Department of Oncology in [address] [phone] Manjit Velasquez APRN, C.N.P., D.N.P. [address] [place] [phone] 11/15/2023 9:30 AM CDT Comprehensive Visit Department of Palliative Care in [address] [phone] Patty Gomez APRN, C.N.P., M.S.N. [address] [place] [phone] 11/15/2023 2:15 PM CDT Infusion Department of Oncology in [address] [address] Loyda Lennon M.D. [address] [place] [phone] 11/22/2023 7:30 AM CDT Lab Department of Oncology in [address] [address] Loyda Lennon M.D. [address] [place] [phone] 11/22/2023 8:45 AM CDT Infusion Department of Oncology in [place], [place] [address] [place] [phone] Loyda Lennon M.D. [address] [place] [phone] 11/28/2023 3:30 PM CDT Clinical Communication Virtual Review in [place], [place] [address] [place] [address] 11/29/2023 9:00 AM CDT Procedure visit Department of Urology in [address] [address] Mark Colorado M.D. [address] [place] [address] [place] [phone] 11/29/2023 11:20 AM CDT Lab Department of Laboratory Medicine and Pathology, [facility], in [place], [place] [address] [place] [phone] Loyda Lennon M.D. [address] [place] [phone] 11/29/2023 11:30 AM CDT Lab Department of Oncology in [address] [phone] Loyda Lennon M.D. [address] [place] [phone] 11/29/2023 1:00 PM CDT Infusion Department of Oncology in [address] [address] Loyda Lennon M.D. [address] [place] [phone] 12/03/2023 1:45 PM CDT Comprehensive Visit Department of Urology in [place], [place] [address] [place] [phone] Mona Egan P.A.-C. [address] [place] [phone] 12/05/2023 1:20 PM CDT Comprehensive Visit Department of Oncology in [place], [place] [address] [place] [phone] Letty Kate M.D. [address] [place] [phone] 12/10/2023 3:00 PM CDT Clinical Communication Virtual Review in [place], [place] [address] [place] [address] 12/10/2023 3:30 PM CDT Procedure visit Department of Urology in [place], [place] [address] [place] [phone] Mark Colorado M.D. [address] [place] [address] [place] [phone] 12/12/2023 3:45 PM CDT Appointment Department of Radiology, [facility], in [place], [place] [address] [place] [phone] Na Hernandez M.D., Ph.D. [address] [place] [phone] 12/13/2023 6:00 AM CDT Lab Department of Laboratory Medicine and Pathology, [facility], in [place], [place] [address] [place] [phone] Loyda Lennon M.D. [address] [place] [phone] 12/13/2023 6:20 AM CDT Lab Department of Infusion Therapy in [place], [place] [address] [place] [phone] Loyda Lennon M.D. [address] [place] [phone] 12/13/2023 11:10 AM CDT Office Visit Department of Oncology in [place], [place] [address] [place] [phone] Na Hernandez M.D., Ph.D. [address] [place] [phone] 12/13/2023 1:00 PM CDT Infusion Department of Oncology in [address] [address] Loyda Lennon M.D. [address] [place] [phone] 12/20/2023 9:20 AM CDT Lab Department of Infusion Therapy in [place], [place] [address] [place] [phone] Loyda Lennon M.D. [address] [place] [phone] 12/20/2023 10:30 AM CDT Infusion Department of Oncology in [place], [place] [address] [place] [phone] Loyda Lennon M.D. [address] [place] [phone] 12/25/2023 10:30 AM CDT Appointment Division of Gastroenterology in [address] [address] Na Hernandez M.D., Ph.D. [address] [place] [phone] 12/27/2023 10:15 AM CDT Lab Department of Oncology in [place], [place] [address] [place] [phone] Loyda Lennon M.D. [address] [place] [phone] 12/27/2023 10:30 AM CDT Lab Department of Laboratory Medicine and Pathology, [facility] in [place], [place] [address] [place] [phone] Loyda Lennon M.D. [address] [place] [phone] 12/27/2023 11:45 AM CDT Infusion Department of Oncology in [place], [place] [address] [place] [phone] Loyda Lennon M.D. [address] [place] [phone] 01/03/2024 1:00 PM CDT Clinical Communication Virtual Review in [place], [place] [address] [place] [address] 01/10/2024 8:00 AM CDT Lab Department of Infusion Therapy in [place], [place] [address] [place] [phone] Loyda Lennon M.D. [address] [place] [phone] 01/10/2024 8:20 AM CDT Lab Department of Laboratory Medicine and Pathology, [facility] in [place], [place] [address] [place] [phone] Loyda Lennon M.D. [address] [place] [phone] 01/10/2024 10:30 AM CDT Office Visit Department of Oncology in [place], [place] [address] [place] [phone] Na Hernandez M.D., Ph.D. [address] [place] [phone] 01/10/2024 11:45 AM CDT Infusion Department of Oncology in [place], [place] [address] [place] [phone] Loyda Lennon M.D. [address] [place] [phone] 01/17/2024 8:45 AM CDT Lab Department of Oncology in [place], [place] [address] [place] [phone] Loyda Lennon M.D. [address] [place] [phone] 01/17/2024 10:00 AM CDT Infusion Department of Oncology in [place], [place] [address] [place] [phone] Loyda Lennon M.D. [address] [place] [phone] 01/24/2024 8:00 AM CDT Lab Department of Laboratory Medicine and Pathology, [facility] in [place], [place] [address] [place] [phone] Loyda Lennon M.D. [address] [place] [phone] 01/24/2024 8:15 AM CDT Lab Department of Oncology in [place], [place] [address] [place] [phone] Loyda Lennon M.D. [address] [place] [phone] 01/24/2024 9:15 AM CDT Infusion Department of Oncology in [place], [place] [address] [place] [address] Loyda Lennno M.D. [address] [place] [address] Scheduled Procedures Name Priority Associated Diagnoses Date/Ti me HEPATECTOMY RESECTION LIVER Cholangiocarcinoma (HCC) ULTRASOUND LIVER Cholangiocarcinoma (HCC) RECONSTRUCTION PORTAL VEIN Cholangiocarcinoma (HCC) documented as of this encounter Procedures Procedure Name Priority Date/Time Associated Diagnosis Comments GASTROENTEROLOGY IMAGE EXAM Routine 08/02/2023 4:40 PM CDT documented in this encounter Results * ERCP-Gastroenterology Image Exam (08/02/2023 4:40 PM CDT) 08/02/2023 4:39 PM CDT Narrative IIMS - 08/02/2023 6:00 PM CDT This order has been created [...] documented as of this encounter Care Teams Billiard Table Repairer Relationship Specialty Start Date End Date Mark Colorado M.D. [address] [place] [address] PCP - General Family Medicine 11/09/22 documented as of this encounter
--- OUTSIDE RECORDS SUMMARY | 2023-11-05 22:13 | XMS_ITS | Encounter Summary ---
Author Organization [facility] Address [address] [place] [address] Care Team Providers Care Executive Pilot Name Role Phone Mark Colorado M.D. Primary Care Provider [phone] Reason for Referral * Outpatient (Routine) Specialty Diagnoses / Procedures Referred By Contac t Referred To Contact Oncology RST [facility] [address] [place] [address] [facility] Referral ID Status Reason Start Date Expiration Date Visits Re quested Visits Authorized * Outpatient (Routine) Specialty Diagnoses / Procedures Referred By Contac t Referred To Contact Oncology [facility] [address] [place] [address] [facility] Referral ID Status Reason Start Date Expiration Date Visits Re quested Visits Authorized Encounter Details Date Type Department Care Team (Latest Contact Info) Description 08/08/2023 Orders Only Department of Oncology in [place], [place] [address] [place] [address] Karen Burger Cholangiocarcinoma (HCC) (Primary Dx); Peritoneal Carcinomatosis (HCC); Hair Dresser Current Drug Therapy, Chemotherapy; Neutropenia Chemotherapy Induced (HCC) Social History Tobacco [...] your living situation today? I have a [facility] place to live 09/10/2022 Sex and Gender Information Value Date Recorded Sex Assigned at Male 09/10/2022 12:02 PM CDT Gender Identity Male 09/10/2022 12:02 PM CDT Sexual Orientation Straight 09/10/2022 12 :02 PM CDT documented as of this encounter Plan of Treatment Upcoming Encounters Date Type Department Care Team (Latest Contact Info) Description 11/07/2023 3:15 PM CDT Clinical Communication Virtual Review in [place], [place] [address] [place] [address] 11/15/2023 6:40 AM CDT Lab Department of Laboratory Medicine and Pathology, [facility] in [place], [place] [address] [place] [phone] Loyda Lennon M.D. [address] [place] [phone] 11/15/2023 8:20 AM CDT Office Visit Department of Oncology in [place], [place] [address] [place] [phone] Manjit Velasquez, KAYLEE, C.N.P., D.N.P. [address] [place] [phone] 11/15/2023 9:30 AM CDT Comprehensive Visit Department of Palliative Care in [place], [place] [address] [place] [phone] Patty Gomez APRN, C.N.P., M.S.N. [address] [place] [phone] 11/15/2023 2:15 PM CDT Infusion Department of Oncology in [place], [place] [address] [place] [phone] Loyda Lennon M.D. [address] [place] [phone] 11/22/2023 7:30 AM CDT Lab Department of Oncology in [place], [place] [address] [place] [phone] Loyda Lennon M.D. [address] [place] [phone] 11/22/2023 8:45 AM CDT Infusion Department of Oncology in [place], [place] [address] [place] [phone] Loyda Lennon M.D. [address] [place] [phone] 11/28/2023 3:30 PM CDT Clinical Communication Virtual Review in [place], [place] 200 [place] [address] 11/29/2023 9:00 AM CDT Procedure visit Department of Urology in [place], [place] [address] [place] [phone] Mark Colorado M.D. [address] [place] [address] [place] [phone] 11/29/2023 11:20 AM CDT Lab Department of Laboratory Medicine and Pathology, [facility], in [place], [place] [address] [place] [phone] Loyda Lennon M.D. [address] [place] [phone] 11/29/2023 11:30 AM CDT Lab Department of Oncology in [place], [place] [address] [place] [phone] Loyda Lennon M.D. [address] [place] [phone] 11/29/2023 1:00 PM CDT Infusion Department of Oncology in [place], [place] [address] [place] [phone] Loyda Lennon M.D. [address] [place] [phone] 12/03/2023 1:45 PM CDT Comprehensive Visit Department of Urology in [address] [phone] Mona Egan, PLillian-Sara [address] [place] [phone] 12/05/2023 1:20 PM CDT Comprehensive Visit Department of Oncology in [address] [phone] Letty Kate M.D. [address] [place] [phone] 12/10/2023 3:00 PM CDT Clinical Communication Virtual Review in [place], [place] 200 [place] [address] 12/10/2023 3:30 PM CDT Procedure visit Department of Urology in [place], [place] [address] [place] [phone] Mark Colorado M.D. [address] [place] [address] [place] [phone] 12/12/2023 3:45 PM CDT Appointment Department of Radiology, [facility], in [place], [place] [address] [place] [phone] Na Hernandez M.D., Ph.D. [address] [place] [phone] 12/13/2023 6:00 AM CDT Lab Department of Laboratory Medicine and Pathology, [facility] in [place], [place] [address] [place] [phone] Loyda Lennon M.D. [address] [place] [phone] 12/13/2023 6:20 AM CDT Lab Department of Infusion Therapy in [place], [place] [address] [place] [phone] Loyda Lennon M.D. [address] [place] [phone] 12/13/2023 11:10 AM CDT Office Visit Department of Oncology in [place], [place] [address] [place] [phone] Na Hernandez M.D., Ph.D. [address] [place] [phone] 12/13/2023 1:00 PM CDT Infusion Department of Oncology in [place], [place] [address] [place] [phone] Loyda Lennon M.D. [address] [place] [phone] 12/20/2023 9:20 AM CDT Lab Department of Infusion Therapy in [place], [place] [address] [place] [phone] Loyda Lennon M.D. [address] [place] [phone] 12/20/2023 10:30 AM CDT Infusion Department of Oncology in [place], [place] [address] [place] [phone] Loyda Lennon M.D. [address] [place] [phone] 12/25/2023 10:30 AM CDT Appointment Division of Gastroenterology in [address] [phone] Na Hernandez M.D., Ph.D. [address] [place] [phone] 12/27/2023 10:15 AM CDT Lab Department of Oncology in [place], [place] [address] [place] [phone] Loyda Lennon M.D. [address] [place] [phone] 12/27/2023 10:30 AM CDT Lab Department of Laboratory Medicine and Pathology, [facility], in [place], [place] [address] [place] [phone] Loyda Lennon M.D. [address] [place] [phone] 12/27/2023 11:45 AM CDT Infusion Department of Oncology in [address] [phone] Loyda Lennon M.D. [address] [place] [phone] 01/03/2024 1:00 PM CDT Clinical Communication Virtual Review in [place], [place] 200 [place] [address] 01/10/2024 8:00 AM CDT Lab Department of Infusion Therapy in [place], [place] [address] [place] [phone] Loyda Lennon M.D. [address] [place] [phone] 01/10/2024 8:20 AM CDT Lab Department of Laboratory Medicine and Pathology, [facility] in [place], [place] [address] [place] [phone] Loyda Lennon M.D. [address] [place] [phone] 01/10/2024 10:30 AM CDT Office Visit Department of Oncology in [address] [phone] Na Hernandez M.D., Ph.D. [address] [place] [phone] 01/10/2024 11:45 AM CDT Infusion Department of Oncology in [address] [phone] Loyda Lennon M.D. [address] [place] [phone] 01/17/2024 8:45 AM CDT Lab Department of Oncology in [address] [phone] Loyda Lennon M.D. [address] [place] [phone] 01/17/2024 10:00 AM CDT Infusion Department of Oncology in [place], [place] [address] [place] [phone] Loyda Lennon M.D. [address] [place] [phone] 01/24/2024 8:00 AM CDT Lab Department of Laboratory Medicine and Pathology, [facility] in [place], [place] [address] [place] [phone] Loyda Lennon M.D. [address] [place] [phone] 01/24/2024 8:15 AM CDT Lab Department of Oncology in [place], [place] [address] [place] [phone] Loyda Lennon M.D. [address] [place] [phone] 01/24/2024 9:15 AM CDT Infusion Department of Oncology in [place], [place] [address] [place] [phone] Loyda Lennon M.D. [address] [place] [phone] Scheduled Procedures Name Priority Associated Diagnoses Date/Ti me HEPATECTOMY RESECTION LIVER Cholangiocarcinoma (HCC) ULTRASOUND LIVER Cholangiocarcinoma (HCC) RECONSTRUCTION PORTAL VEIN Cholangiocarcinoma (HCC) Scheduled Referrals Name Type Priority Associated Diagnoses Orde r Schedule Oncology office visit (clinic) Outpatient Referral Routine Cholangiocarcinoma (HCC) Peritoneal Carcinomatosis (HCC) Neutropenia Chemotherapy Induced (HCC) Hair Dresser Current Drug Therapy, Chemotherapy Expected: 09/10/2023, Expires: 09/09/2024 Oncology office visit (clinic) Outpatient Referral Routine Cholangiocarcinoma (HCC) Peritoneal Carcinomatosis (HCC) Neutropenia Chemotherapy Induced (HCC) Hair Dresser Current Drug Therapy, Chemotherapy Expected: 10/08/2023, Expires: 10/07/2024 documented as of this encounter Results * Urinalysis Dipstick with Microscopic, Research (10/29/2023 6:24 AM CDT) UADMR Source, U Urine, Urine, Clean Catch 10/29/2023 6:33 AM CDT DTL Color, U Yellow 10/29/2023 6:33 AM CDT DTL Clarity, U Clear 10/29/2023 6:33 AM CDT DTL Glucose Negative Negative mg/dL 10/29/2023 7:08 AM CDT DTL Ketones Negative Negative mg/dL 10/29/2023 7:08 AM CDT DTL Hemoglobin, QL Negative Negative 10/29/2023 7:08 AM CDT DTL Protein, U Negative Negative mg/dL 10/29/2023 7:08 AM CDT DTL Nitrite, U Negative Negative 10/29/2023 7:08 AM CDT DTL Bilirubin Negative Negative 10/29/2023 7:08 AM CDT DTL Comment: ----ADDITIONAL INFORMATION---- This test has been modified from the mud analysis well logging operator's instructions. Its performance characteristics were determined by [facility] in a manner consistent with CLIA requirements. This test has not been cleared or approved by the U.S. Food and Drug Administration. Specific [place] 1.014 1.002 - 1.030 10/29/2023 7:08 AM CDT DTL pH, U 5.5 5.0 - 8.0 10/29/2023 7:08 AM CDT DTL Urobilinogen Normal Normal mg/dL 10/29/2023 7:08 AM CDT DTL Leukocyte Esterase Negative Negative 2023 7:08 AM CDT DTL Urine (Urine, Clean Catch) 10/29/2023 6:24 AM CDT 10/29/2023 6:33 AM CDT Na Hernandez M.D., Ph.D. LAB URINE O RDERABLES [facility] [address] [place] [address], [facility] DTL [facility] [address] [place] [address] * (ABNORMAL) NT-Pro B-Type Natriuretic Peptide (BNP) (10/29/2023 6:12 AM CDT) [facility] NT-Pro BNP 931(H) <=540 pg/mL 10/29/2023 7:08 AM CDT DT Comment: NT-proBNP values less [...] absence of renal failure. Blood (Blood, Venous) 10/29/2023 6:12 AM CDT 10/29/2023 6:44 AM CDT Na Hernandez M.D., Ph.D. LAB BLOOD A DD-ON Performing Organization Address City/[facility]/ZIP Co de Phone Number [facility] [address] [place], [place] [phone] [place] [address] 200 [place] [address] * Troponin I, High Sensitivity (10/29/2023 6:12 AM CDT) [facility] TROPONIN I, HIGH SENSITIVITY, P 9 <=20 ng/L 10/30/2023 9:13 AM CDT [facility] Blood (Blood, Venous) 10/29/2023 6:12 AM CDT 10/29/2023 6:43 AM CDT Na Hernandez M.D., Ph.D. LAB BLOOD N ON ADD-ON [facility] [address] [place] [address] * (ABNORMAL) Lipase (10/29/2023 6:12 AM CDT) Lipase, S 85(H) 13 - 60 U/L 10/29/2023 7: 08 AM CDT DTL Blood (Blood, Venous) 10/29/2023 6:12 AM CDT 10/29/2023 6:44 AM CDT Na Hernandez M.D., Ph.D. LAB BLOOD A DD-ON Performing Organization Address City/[facility] Co de Phone Number [facility] [address] [place] [address] * Amylase, Total (10/29/2023 6:12 AM CDT) Amylase, Total, S 49 28 - 100 U/L 10/29/2023 7:08 AM CDT DTL Blood (Blood, Venous) 10/29/2023 6:12 AM CDT 10/29/2023 6:44 AM CDT Na Hernandez M.D., Ph.D. LAB BLOOD A DD-ON Performing Organization Address [facility] Co de Phone Number [facility] [address] [place] [address] * Phosphorus Inorganic (10/29/2023 6:12 AM CDT) Phosphorus (Inorganic), S 3.1 2.5 - 4.5 mg/dL 10/29/2023 7:08 AM CDT DTL Blood (Blood, Venous) 10/29/2023 6:12 AM CDT 10/29/2023 6:44 AM CDT Na Hernandez M.D., Ph.D. LAB BLOOD A DD-ON Performing Organization Address City/[facility]/ZIP Co de Phone Number [facility] [address] [place] [address] * Magnesium (10/29/2023 6:12 AM CDT) [facility] Magnesium, S 1.9 1.7 - 2.3 mg/dL 10/29/2023 7:08 AM CDT DTL Blood (Blood, Venous) 10/29/2023 6:12 AM CDT 10/29/2023 6:44 AM CDT Na Hernandez M.D., Ph.D. LAB BLOOD A DD-ON [facility] [address] [place] [address] * Uric Acid (10/29/2023 6:12 AM CDT) [facility] Uric Acid, S 4.8 3.7 - 8.0 mg/dL 10/29/2023 7:08 AM CDT DT Blood (Blood, Venous) 10/29/2023 6:12 AM CDT 10/29/2023 6:44 AM CDT Na Hernandez M.D., Ph.D. LAB BLOOD A DD-ON [facility] [address] [place] [address] * LD (Lactate Dehydrogenase) (10/29/2023 6:12 AM CDT) [facility] LD 208 122 - 222 U/L 10/29/2023 7:25 AM CDT DTL Blood (Blood, Venous) 10/29/2023 6:12 AM CDT 10/29/2023 6:59 AM CDT Na Hernandez M.D., Ph.D. LAB BLOOD N ON ADD-ON [facility] [address] [place] [address], [facility] [address] [place] [address] * (ABNORMAL) Comprehensive Metabolic Panel (10/29/2023 6:12 AM CDT) [facility] Potassium, S 4.6 3.6 - 5.2 mmol/L 10/29/2023 7:08 AM CDT DTL Sodium, S 140 135 - 145 mmol/L 10/29/2023 7:08 AM CDT DTL Chloride, S 110(H) 98 - 107 mmol/L 10/29/2023 7:08 AM CDT DTL Bicarbonate, S 20(L) 22 - 29 mmol/L 10/29/2023 7:08 AM CDT DTL Anion Gap 10 7 - 15 10/29/2023 7:08 AM CDT DTL BUN (Blood Urea Nitrogen), S 22 8 - 24 mg/dL 10/29/2023 7:08 AM CDT DTL Creatinine 1.50(H) 0.74 - 1.35 mg/dL 10/29/2023 7:08 AM CDT DTL Estimated GFR (eGFR) 50(L) >=60 mL/min/BS A 10/29/2023 7:08 AM CDT DTL Comment: Estimated GFR calculated using the 2020 CKD_EPI creatinine equation. Calcium, Total, S 9.0 8.8 - 10.2 mg/dL 10/29/2023 7:08 AM CDT DTL Glucose, S 89 70 - 140 mg/dL 10/29/2023 7:08 AM CDT DTL Protein, Total, S 6.0(L) 6.3 - 7.9 g/dL 10/29/2023 7:08 AM CDT DTL Albumin, S 3.6 3.5 - 5.0 g/dL 10/29/2023 7:08 AM CDT DTL Aspartate Aminotransferase (AST), S 73(H) 8 - 48 U/L 10/29/2023 7:08 AM CDT DTL Alkaline Phosphatase, S 505(H) 40 - 129 U/L 10/29/2023 7:08 AM CDT DTL Alanine Aminotransferase (ALT), S 151(H) 7 - 55 U/L 10/29/2023 7:08 AM CDT DTL Bilirubin, Total, S <0.2 0.0 - 1.2 mg/dL 10/29/2023 7:08 AM CDT DTL Blood (Blood, Venous) 10/29/2023 6:12 AM CDT 10/29/2023 6:44 AM CDT Na Hernandez M.D., Ph.D. LAB BLOOD A DD-ON [facility] [address] [place] [address], [facility] [address] [place] [address] * (ABNORMAL) CBC with Differential, Blood (10/29/2023 6:12 AM CDT) Pathologist [facility] Hemoglobin 9.8(L) 13.2 - 16.6 g/dL 10/29/2023 6:37 AM CDT DTL Hematocrit 31.1(L) 38.3 - 48.6 % 10/29/2023 6:37 AM CDT DTL Erythrocytes 3.05(L) 4.35 - 5.65 x10(12)/L 10/29/2023 6:37 AM CDT DTL MCV 102.0(H) 78.2 - 97.9 fL 10/29/2023 6:37 AM CDT DTL RBC Distrib Width 17.1(H) 11.8 - 14.5 % 10/29/2023 6:37 AM CDT DTL Platelet Count 239 135 - 317 x10(9)/L 10/29/2023 6:37 AM CDT DTL Leukocytes 4.6 3.4 - 9.6 x10(9)/L 10/29/2023 6:37 AM CDT DTL Neutrophils 2.81 1.56 - 6.45 x10(9)/L 10/29/2023 6:37 AM CDT DHPM Lymphocytes 0.83(L) 0.95 - 3.07 x10(9)/L 10/29/2023 6:37 AM CDT DTL Monocytes 0.75 0.26 - 0.81 x10(9)/L 10/29/2023 6:37 AM CDT DTL Eosinophils 0.14 0.03 - 0.48 x10(9)/L 10/29/2023 6:37 AM CDT DTL Basophils 0.03 0.01 - 0.08 x10(9)/L 10/29/2023 6:37 AM CDT DTL Blood (Blood, Venous) 10/29/2023 6:12 AM CDT 10/29/2023 6:27 AM CDT Na Hernandez M.D., Ph.D. [place] [address], [facility] DTL [facility] [address] [place] [address] [place] [address] * (ABNORMAL) CBC with Differential, Blood (10/15/2023 [...] Hernandez M.D., Ph.D. LAB BLOOD A DD-ON [facility] 200 [place] [address], [facility] DTL [facility] 200 [place] [address] [facility] [address] [place] [address] * APTT (Activated Partial Thromboplastin Time) (10/08/2023 7:59 AM CDT) Activated Partial Thrombopl Time, P 33 25 - 37 sec 10/08/2023 8:44 AM CDT DTL Blood (Blood, Venous) 10/08/2023 7:59 AM CDT 10/08/2023 8:16 AM CDT Na Hernandez M.D., Ph.D. LAB BLOOD A DD-ON Performing Organization Address [facility] Co de Phone Number [facility] [address] [place], [place] [phone] [place] [address] * (ABNORMAL) Prothrombin Time (PT) (10/08/2023 7:59 AM CDT) Prothrombin Time, P 12.9(H) 9.4 - 12.5 sec 10/08/2023 8:44 AM CDT DT INR 1.2 0.9 - 1.1 10/08/2023 8:44 AM CDT DT Comment: ----ADDITIONAL INFORMATION---- Standard intensity warfarin therapeutic range: 2.0 to 3.0 ?? High intensity warfarin therapeutic range: 2.5 to 3.5 Blood (Blood, Venous) 10/08/2023 7:59 AM CDT 10/08/2023 8:16 AM CDT Na Hernandez M.D., Ph.D. LAB BLOOD A DD-ON Performing Organization Address [facility] de Phone Number [phone] [place] [phone] * NT-Pro B-Type Natriuretic Peptide (BNP) (10/08/2023 7:59 AM CDT) NT-Pro BNP 167 <=540 pg/mL 10/08/2023 9:16 AM CDT DTL Comment: NT-proBNP values less [...] absence of renal failure. Blood (Blood, Venous) 10/08/2023 7:59 AM CDT 10/08/2023 8:28 AM CDT Na Hernandez M.D., Ph.D. LAB BLOOD A DD-ON [facility] [address] [place] [address] * Troponin I, High Sensitivity (10/08/2023 7:59 AM CDT) TROPONIN I, HIGH SENSITIVITY, P 4 <=20 ng/L 10/09/2023 9:13 AM CDT DTL Blood (Blood, Venous) 10/08/2023 7:59 AM CDT 10/08/2023 8:30 AM CDT Na Hernandez M.D., Ph.D. LAB BLOOD N ON ADD-ON Performing Organization Address City/[facility]/ZIP Co de Phone Number [facility] [address] [place] [address] * Lipase (10/08/2023 7:59 AM CDT) Lipase, S 35 13 - 60 U/L 10/08/2023 9: 16 AM CDT DTL Blood (Blood, Venous) 10/08/2023 7:59 AM CDT 10/08/2023 8:28 AM CDT Na Hernandez M.D., Ph.D. LAB BLOOD A DD-ON Performing Organization Address City/[facility]/ZIP Co de Phone Number [facility] [address] [place] [address] * Amylase, Total (10/08/2023 7:59 AM CDT) Amylase, Total, S 39 28 - 100 U/L 10/08/2023 9:16 AM CDT DTL Blood (Blood, Venous) 10/08/2023 7:59 AM CDT 10/08/2023 8:28 AM CDT Na Hernandez M.D., Ph.D. LAB BLOOD A DD-ON Performing Organization Address City/[facility]/ZIP Co de Phone Number [facility] [address] [place] [address] * Phosphorus Inorganic (10/08/2023 7:59 AM CDT) Phosphorus (Inorganic), S 3.4 2.5 - 4.5 mg/dL 10/08/2023 9:16 AM CDT DTL Blood (Blood, Venous) 10/08/2023 7:59 AM CDT 10/08/2023 8:28 AM CDT Na Hernandez M.D., Ph.D. LAB BLOOD A DD-ON Performing Organization Address [facility] Co de Phone Number [facility] [address] [place] [address] * Magnesium (10/08/2023 7:59 AM CDT) Magnesium, S 2.3 1.7 - 2.3 mg/dL 10/08/2023 9:16 AM CDT DTL Blood (Blood, Venous) 10/08/2023 7:59 AM CDT 10/08/2023 8:28 AM CDT Na Hernandez M.D., Ph.D. LAB BLOOD A DD-ON Performing Organization Address City/[facility]/ZIP Co de Phone Number [facility] [address] [place] [address] * Uric Acid (10/08/2023 7:59 AM CDT) [facility] Uric Acid, S 6.3 3.7 - 8.0 mg/dL 10/08/2023 9:16 AM CDT DTL Blood (Blood, Venous) 10/08/2023 7:59 AM CDT 10/08/2023 8:28 AM CDT Na Hernandez M.D., Ph.D. LAB BLOOD A DD-ON [facility] [address] [place] [address] * LD (Lactate Dehydrogenase) (10/08/2023 7:59 AM CDT) [facility] LD 180 122 - 222 U/L 10/08/2023 9:18 AM CDT DTL Blood (Blood, Venous) 10/08/2023 7:59 AM CDT 10/08/2023 8:41 AM CDT Na Hernandez M.D., Ph.D. LAB BLOOD N ON ADD-ON [facility] [address] [place] [address] * (ABNORMAL) Comprehensive Metabolic Panel (10/08/2023 7:59 AM CDT) [facility] Potassium, S 4.7 3.6 - 5.2 mmol/L 10/08/2023 9:16 AM CDT DTL Sodium, S 140 135 - 145 mmol/L 10/08/2023 9:16 AM CDT DTL Chloride, S 108(H) 98 - 107 mmol/L 10/08/2023 9:16 AM CDT DTL Bicarbonate, S 21(L) 22 - 29 mmol/L 10/08/2023 9:16 AM CDT DTL Anion Gap 11 7 - 15 10/08/2023 9:16 AM CDT DTL BUN (Blood Urea Nitrogen), S 31(H) 8 - 24 mg/dL 10/08/2023 9:16 AM CDT DTL Creatinine 1.46(H) 0.74 - 1.35 mg/dL 10/08/2023 9:16 AM CDT DTL Estimated GFR (eGFR) 51(L) >=60 mL/min/BS A 10/08/2023 9:16 AM CDT DTL Comment: Estimated GFR calculated using the 2020 CKD_EPI creatinine equation. Calcium, Total, S 8.5(L) 8.8 - 10.2 mg/dL 10/08/2023 9:16 AM CDT DTL Glucose, S 108 70 - 140 mg/dL 10/08/2023 9:16 AM CDT DTL Protein, Total, S 5.7(L) 6.3 - 7.9 g/dL 10/08/2023 9:16 AM CDT DTL Albumin, S 3.5 3.5 - 5.0 g/dL 10/08/2023 9:16 AM CDT DTL Aspartate Aminotransferase (AST), S 23 8 - 48 U/L 10/08/2023 9:16 AM CDT DTL Alkaline Phosphatase, S 100 40 - 129 U/L 10/08/2023 9:16 AM CDT DTL Alanine Aminotransferase (ALT), S 27 7 - 55 U/L 10/08/2023 9:16 AM CDT DTL Bilirubin, Total, S 0.2 0.0 - 1.2 mg/dL 10/08/2023 9:16 AM CDT DTL Blood (Blood, Venous) 10/08/2023 7:59 AM CDT 10/08/2023 8:28 AM CDT Na Hernandez M.D., Ph.D. LAB BLOOD A DD-ON [facility] [address] [place] [address], [facility] DTL [address] [address] * (ABNORMAL) CBC with Differential, Blood (10/08/2023 7:59 AM CDT) Hemoglobin 9.7(L) 13.2 - 16.6 g/dL 10/08/2023 8:39 AM CDT DTL Hematocrit 31.2(L) 38.3 - 48.6 % 10/08/2023 8:39 AM CDT DTL Erythrocytes 3.06(L) 4.35 - 5.65 x10(12)/L 10/08/2023 8:39 AM CDT DTL MCV 102.0(H) 78.2 - 97.9 fL 10/08/2023 8:39 AM CDT DTL RBC Distrib Width 16.6(H) 11.8 - 14.5 % 10/08/2023 8:39 AM CDT DTL Platelet Count 148 135 - 317 x10(9)/L 10/08/2023 8:39 AM CDT DTL Leukocytes 3.8 3.4 - 9.6 x10(9)/L 10/08/2023 8:39 AM CDT DTL Neutrophils 2.42 1.56 - 6.45 x10(9)/L 10/08/2023 8:39 AM CDT DHPM Lymphocytes 0.63(L) 0.95 - 3.07 x10(9)/L 10/08/2023 8:39 AM CDT DTL Monocytes 0.63 0.26 - 0.81 x10(9)/L 10/08/2023 8:39 AM CDT DTL Eosinophils 0.12 0.03 - 0.48 x10(9)/L 10/08/2023 8:39 AM CDT DTL Basophils 0.03 0.01 - 0.08 x10(9)/L 10/08/2023 8:39 AM CDT DTL Blood (Blood, Venous) 10/08/2023 7:59 AM CDT 10/08/2023 8:17 AM CDT Na Hernandez M.D., Ph.D. LAB BLOOD A DD-ON [facility] [address] [place] [address], [place] DTL [facility] [address] [place] [address] [facility] [facility] [address] [place] [address] * Urinalysis Dipstick with Microscopic, Research (10/08/2023 7:21 AM CDT) Pathologist [facility] Source, U Urine, Urine, Clean Catch 10/08/2023 7:39 AM CDT DTL Color, U Yellow 10/08/2023 7:39 AM CDT DTL Clarity, U Clear 10/08/2023 7:39 AM CDT DTL Glucose Negative Negative mg/dL 10/08/2023 8:13 AM CDT DTL Ketones Negative Negative mg/dL 10/08/2023 8:13 AM CDT DTL Hemoglobin, QL Negative Negative 10/08/2023 8:13 AM CDT DTL Protein, U Negative Negative mg/dL 10/08/2023 8:13 AM CDT DTL Nitrite, U Negative Negative 10/08/2023 8:13 AM CDT DTL Bilirubin Negative Negative 10/08/2023 8:13 AM CDT DTL Comment: ----ADDITIONAL INFORMATION---- This test has been modified from the mud analysis well logging operator's instructions. Its performance characteristics were determined by [facility] in a manner consistent with CLIA requirements. This test has not been cleared or approved by the U.S. Food and Drug Administration. Specific [place] 1.013 1.002 - 1.030 10/08/2023 8:13 AM CDT DTL pH, U 5.0 5.0 - 8.0 10/08/2023 8:13 AM CDT DTL Urobilinogen Normal Normal mg/dL 10/08/2023 8:13 AM CDT DTL Leukocyte Esterase Negative Negative 2023 8:13 AM CDT DTL Urine (Urine, Clean Catch) 10/08/2023 7:21 AM CDT 10/08/2023 7:39 AM CDT Na Hernandez M.D., Ph.D. LAB URINE O RDERABLES [facility] [address] [place] [address], [facility] DTL [facility] [address] [place] [address] * Urinalysis Dipstick with Microscopic, Research (09/24/2023 7:35 AM CDT) DMR Source, U Urine, Urine, Clean Catch 09/24/2023 7:45 AM CDT DTL Color, U Yellow 09/24/2023 7:45 AM CDT DTL Clarity, U Clear 09/24/2023 7:45 AM CDT DTL Glucose Negative Negative mg/dL 09/24/2023 8:28 AM CDT DTL Ketones Negative Negative mg/dL 09/24/2023 8:28 AM CDT DTL Hemoglobin, QL Negative Negative 09/24/2023 8:28 AM CDT DTL Protein, U Negative Negative mg/dL 09/24/2023 8:28 AM CDT DTL Nitrite, U Negative Negative 09/24/2023 8:28 AM CDT DTL Bilirubin Negative Negative 09/24/2023 8:28 AM CDT DTL Comment: ----ADDITIONAL INFORMATION---- This test has been modified from the mud analysis well logging operator's instructions. Its performance characteristics were determined by [facility] in a manner consistent with CLIA requirements. This test has not been cleared or approved by the U.S. Food and Drug Administration. Specific [place] 1.016 1.002 - 1.030 09/24/2023 8:28 AM CDT DTL pH, U 5.5 5.0 - 8.0 09/24/2023 8:28 AM CDT DTL Urobilinogen Normal Normal mg/dL 09/24/2023 8:28 AM CDT DTL Leukocyte Esterase Negative Negative 2023 8:28 AM CDT DTL Urine (Urine, Clean Catch) 09/24/2023 7:35 AM CDT 09/24/2023 7:45 AM CDT Na Hernandez M.D., Ph.D. LAB URINE O RDERABLES Performing Organization Address [facility] Co de Phone Number [facility] [address] [place], [place] [id number] [place] [address] 200 [place] [address] * NT-Pro B-Type Natriuretic Peptide (BNP) (09/24/2023 7:21 AM CDT) NT-Pro BNP 138 <=540 pg/mL 09/24/2023 8:45 AM CDT DT Comment: NT-proBNP values less [...] Performing Organization Address [facility] de Phone Number [facility] [address] [place] [address], [facility] [address] [place] [address] * Troponin I, High Sensitivity (09/24/2023 7:21 AM CDT) TROPONIN I, HIGH SENSITIVITY, P 4 <=20 ng/L 09/25/2023 8:30 AM CDT DT Blood (Blood, Venous) 09/24/2023 7:21 AM CDT 09/24/2023 7:59 AM CDT Na Hernandez M.D., Ph.D. LAB BLOOD N ON ADD-ON Performing Organization Address [facility] Co de Phone Number [facility] [address] [place], [place] [id number] [place] [address] 200 [place] [address] * Lipase (09/24/2023 7:21 AM CDT) Lipase, S 44 13 - 60 U/L 09/24/2023 8: 45 AM CDT DTL Blood (Blood, Venous) 09/24/2023 7:21 AM CDT 09/24/2023 8:01 AM CDT Na Hernandez M.D., Ph.D. LAB BLOOD A DD-ON Performing Organization Address [facility] Co de Phone Number [facility] [address] [place], [place] [phone] [place] [address] 200 [place] [address] * Amylase, Total (09/24/2023 7:21 AM CDT) Amylase, Total, S 43 28 - 100 U/L 09/24/2023 8:45 AM CDT DTL Blood (Blood, Venous) 09/24/2023 7:21 AM CDT 09/24/2023 8:01 AM CDT Na Hernandez M.D., Ph.D. LAB BLOOD A DD-ON Performing Organization Address [facility] Co de Phone Number [facility] [address] [place], [place] [phone] [place] [address] 200 [place] [address] * Phosphorus Inorganic (09/24/2023 7:21 AM CDT) Phosphorus (Inorganic), S 2.6 2.5 - 4.5 mg/dL 09/24/2023 8:45 AM CDT DTL Blood (Blood, Venous) 09/24/2023 7:21 AM CDT 09/24/2023 8:01 AM CDT Na Hernandez M.D., Ph.D. LAB BLOOD A DD-ON Performing Organization Address City/[facility]/ZIP Co de Phone Number [facility] [address] [place] [address], [facility] [address] [place] [address] * Magnesium (09/24/2023 7:21 AM CDT) [facility] Magnesium, S 2.0 1.7 - 2.3 mg/dL 09/24/2023 8:45 AM CDT DTL Blood (Blood, Venous) 09/24/2023 7:21 AM CDT 09/24/2023 8:01 AM CDT Na Hernandez M.D., Ph.D. LAB BLOOD A DD-ON Performing Organization Address [facility] Co de Phone Number [facility] [address] [place] [address], [facility] [address] [place] [address] * Uric Acid (09/24/2023 7:21 AM CDT) [facility] Uric Acid, S 6.0 3.7 - 8.0 mg/dL 09/24/2023 8:45 AM CDT DTL Blood (Blood, Venous) 09/24/2023 7:21 AM CDT 09/24/2023 8:01 AM CDT Na Hernandez M.D., Ph.D. LAB BLOOD A DD-ON Performing Organization Address City/[facility]/ZIP Co de Phone Number [facility] [address] [place], [place] [phone] [place] [address] [address] [place] [address] * LD (Lactate Dehydrogenase) (09/24/2023 7:21 AM CDT) [facility] LD 160 122 - 222 U/L 09/24/2023 8:31 AM CDT DTL Blood (Blood, Venous) 09/24/2023 7:21 AM CDT 09/24/2023 8:00 AM CDT Na Hernandez M.D., Ph.D. LAB BLOOD N ON ADD-ON [facility] [address] [place] [address], [facility] DTL [facility] [address] [place] [address] * (ABNORMAL) Comprehensive Metabolic Panel (09/24/2023 7:21 AM CDT) [facility] Potassium, S 4.6 3.6 - 5.2 mmol/L [...] Hernandez M.D., Ph.D. LAB BLOOD A DD-ON [facility] [address] [place] [address], [facility] [address] [place] [address] * (ABNORMAL) CBC with Differential, Blood (09/24/2023 [...] Hernandez M.D., Ph.D. LAB BLOOD A DD-ON [facility] [address] [place] [address], [facility] DTL [facility] [address] [place], [place] [phone] [place] [address] 200 [place] [address] * (ABNORMAL) CBC with Differential, Blood (09/17/2023 7:42 AM CDT) [facility] Hemoglobin 9.3(L) 13.2 - 16.6 g/dL [...] Hernandez M.D., Ph.D. LAB BLOOD A DD-ON [facility] [address] [place] [address], [facility] DTL [facility] [address] [place] [address] [facility] [address] [place] [address] * Urinalysis Dipstick with Microscopic, Research (09/10/2023 9:51 AM CDT) [facility] Source, U Urine, Urine, Clean Catch 09/10/2023 10:39 AM CDT DTL Color, U Yellow 09/10/2023 10:39 AM CDT DTL Clarity, U Clear 09/10/2023 10:39 AM CDT DTL Glucose Negative Negative mg/dL 09/10/2023 11:17 AM CDT DTL Ketones Negative Negative mg/dL 09/10/2023 11:17 AM CDT DTL Hemoglobin, QL Negative Negative 09/10/2023 11:17 AM CDT DTL Protein, U Negative Negative mg/dL 09/10/2023 11:17 AM CDT DTL Nitrite, U Negative Negative 09/10/2023 11:17 AM CDT DTL Bilirubin Negative Negative 09/10/2023 11:17 AM CDT DTL Comment: ----ADDITIONAL INFORMATION---- This test has been modified from the mud analysis well logging operator's instructions. Its performance characteristics were determined by [facility] in a manner consistent with CLIA requirements. This test has not been cleared or approved by the U.S. Food and Drug Administration. Specific [place] 1.017 1.002 - 1.030 09/10/2023 11:17 AM CDT DTL pH, U 5.0 5.0 - 8.0 09/10/2023 11:17 AM CDT DTL Urobilinogen Normal Normal mg/dL 09/10/2023 11:17 AM CDT DTL Leukocyte Esterase Negative Negative 2023 11:17 AM CDT DTL Urine (Urine, Clean Catch) 09/10/2023 9:51 AM CDT 09/10/2023 10:39 AM CDT Na Hernandez M.D., Ph.D. LAB URINE O RDERABLES [facility] [address] [place] [address], [facility] [address] [place] [address] * APTT (Activated Partial Thromboplastin Time) (09/10/2023 9:23 AM CDT) Activated Partial Thrombopl Time, P 32 25 - 37 sec 09/10/2023 10:07 AM CDT DTL Blood (Blood, Venous) 09/10/2023 9:23 AM CDT 09/10/2023 9:48 AM CDT Na Hernandez M.D., Ph.D. LAB BLOOD A DD-ON Performing Organization Address [facility] de Phone Number [facility] [address] [place], [place] [address] [address] [place] [address] * (ABNORMAL) Prothrombin Time (PT) (09/10/2023 9:23 AM CDT) Prothrombin Time, P 13.2(H) 9.4 - 12.5 sec 09/10/2023 10:07 AM CDT DTL INR 1.2 0.9 - 1.1 09/10/2023 10:07 AM CDT DTL Comment: ----ADDITIONAL INFORMATION---- Standard intensity warfarin therapeutic range: 2.0 to 3.0 ?? High intensity warfarin therapeutic range: 2.5 to 3.5 Blood (Blood, Venous) 09/10/2023 9:23 AM CDT 09/10/2023 9:48 AM CDT Na Hernandez M.D., Ph.D. LAB BLOOD A DD-ON Performing Organization Address [facility] de Phone Number [facility] [address] [place] [address], [facility] [address] [place] [address] * NT-Pro B-Type Natriuretic Peptide (BNP) (09/10/2023 9:23 AM CDT) NT-Pro BNP 147 <=540 pg/mL 09/10/2023 10:42 AM CDT DTL Comment: NT-proBNP values less [...] absence of renal failure. Blood (Blood, Venous) 09/10/2023 9:23 AM CDT 09/10/2023 10:10 AM CDT Na Hernandez M.D., Ph.D. LAB BLOOD A DD-ON Performing Organization Address City/[facility]/ZIP Co de Phone Number [facility] [address] [place] [address] * Troponin I, High Sensitivity (09/10/2023 9:23 AM CDT) TROPONIN I, HIGH SENSITIVITY, P 6 <=20 ng/L 09/11/2023 7:38 AM CDT DTL Blood (Blood, Venous) 09/10/2023 9:23 AM CDT 09/10/2023 10:10 AM CDT Na Hernandez M.D., Ph.D. LAB BLOOD N ON ADD-ON Performing Organization Address [facility] Co de Phone Number [facility] [address] [place] [address] * Lipase (09/10/2023 9:23 AM CDT) Lipase, S 36 13 - 60 U/L 09/10/2023 10:42 AM CDT DT Blood (Blood, Venous) 09/10/2023 9:23 AM CDT 09/10/2023 10:10 AM CDT Na Hernandez M.D., Ph.D. LAB BLOOD A DD-ON Performing Organization Address City/[facility]/ZIP Co de Phone Number [facility] [address] [place] [address], [facility] [address] [place] [address] * Amylase, Total (09/10/2023 9:23 AM CDT) Amylase, Total, S 46 28 - 100 U/L 09/10/2023 10:42 AM CDT DTL Blood (Blood, Venous) 09/10/2023 9:23 AM CDT 09/10/2023 10:10 AM CDT Na Hernandez M.D., Ph.D. LAB BLOOD A DD-ON Performing Organization Address City/[facility]/ZIP Co de Phone Number [facility] [address] [place] [address], [facility] [address] [place] [address] * Phosphorus Inorganic (09/10/2023 9:23 AM CDT) Phosphorus (Inorganic), S 2.9 2.5 - 4.5 mg/dL 09/10/2023 10:42 AM CDT DTL Blood (Blood, Venous) 09/10/2023 9:23 AM CDT 09/10/2023 10:10 AM CDT Na Hernandez M.D., Ph.D. LAB BLOOD A DD-ON [facility] [address] [place] [address], [facility] [address] [place] [address] * Magnesium (09/10/2023 9:23 AM CDT) Magnesium, S 2.2 1.7 - 2.3 mg/dL 09/10/2023 10:42 AM CDT DTL Blood (Blood, Venous) 09/10/2023 9:23 AM CDT 09/10/2023 10:10 AM CDT Na Hernandez M.D., Ph.D. LAB BLOOD A DD-ON [facility] [address] [place] [address] * Uric Acid (09/10/2023 9:23 AM CDT) [facility] Uric Acid, S 7.3 3.7 - 8.0 mg/dL 09/10/2023 10:42 AM CDT DT Blood (Blood, Venous) 09/10/2023 9:23 AM CDT 09/10/2023 10:10 AM CDT Na Hernandez M.D., Ph.D. LAB BLOOD A DD-ON [facility] [address] [place] [address] * (ABNORMAL) LD (Lactate Dehydrogenase) (09/10/2023 9:23 AM CDT) [facility] LD 234(H) 122 - 222 U/L 09/10/2023 10:20 AM CDT DT Blood (Blood, Venous) 09/10/2023 9:23 AM CDT 09/10/2023 10:02 AM CDT Na Hernandez M.D., Ph.D. LAB BLOOD N ON ADD-ON [facility] [address] [place] [address] * (ABNORMAL) Comprehensive Metabolic Panel (09/10/2023 9:23 AM CDT) [facility] Potassium, S 4.4 3.6 - 5.2 mmol/L 09/10/2023 10:42 AM CDT DTL Sodium, S 138 135 - 145 mmol/L 09/10/2023 10:42 AM CDT DTL Chloride, S 108(H) 98 - 107 mmol/L 09/10/2023 10:42 AM CDT DTL Bicarbonate, S 22 22 - 29 mmol/L 09/10/2023 10:42 AM CDT DTL Anion Gap 8 7 - 15 09/10/2023 10:42 AM CDT DTL BUN (Blood Urea Nitrogen), S 27(H) 8 - 24 mg/dL 09/10/2023 10:42 AM CDT DTL Creatinine 1.28 0.74 - 1.35 mg/dL 09/10/2023 10:42 AM CDT DTL Estimated GFR (eGFR) 60 >=60 mL/min/BS A 09/10/2023 10:42 AM CDT DTL Comment: Estimated GFR calculated using the 2020 CKD_EPI creatinine equation. Calcium, Total, S 8.5(L) 8.8 - 10.2 mg/dL 09/10/2023 10:42 AM CDT DTL Glucose, S 135 70 - 140 mg/dL 09/10/2023 10:42 AM CDT DTL Protein, Total, S 6.0(L) 6.3 - 7.9 g/dL 09/10/2023 10:42 AM CDT DTL Albumin, S 3.7 3.5 - 5.0 g/dL 09/10/2023 10:42 AM CDT DTL Aspartate Aminotransferase (AST), S 22 8 - 48 U/L 09/10/2023 10:42 AM CDT DTL Alkaline Phosphatase, S 113 40 - 129 U/L 09/10/2023 10:42 AM CDT DTL Alanine Aminotransferase (ALT), S 23 7 - 55 U/L 09/10/2023 10:42 AM CDT DTL Bilirubin, Total, S <0.2 0.0 - 1.2 mg/dL 09/10/2023 10:42 AM CDT DTL Blood (Blood, Venous) 09/10/2023 9:23 AM CDT 09/10/2023 10:10 AM CDT Na Hernandez M.D., Ph.D. LAB BLOOD A DD-ON [facility] [address] [place] [address], [facility] DTL [facility] [address] [place] [address] * (ABNORMAL) CBC with Differential, Blood (09/10/2023 9:23 AM CDT) Pathologist [facility] Hemoglobin 10.2(L) 13.2 - 16.6 g/dL 09/10/2023 10:43 AM CDT DTL Hematocrit 31.2(L) 38.3 - 48.6 % 09/10/2023 10:43 AM CDT DTL Erythrocytes 3.10(L) 4.35 - 5.65 x10(12)/L 09/10/2023 10:43 AM CDT DTL MCV 100.6(H) 78.2 - 97.9 fL 09/10/2023 10:43 AM CDT DTL RBC Distrib Width 16.9(H) 11.8 - 14.5 % 09/10/2023 10:43 AM CDT DTL Platelet Count 129(L) 135 - 317 x10(9)/L 09/10/2023 10:43 AM CDT DTL Leukocytes 10.1(H) 3.4 - 9.6 x10(9)/L 09/10/2023 10:43 AM CDT DTL Neutrophils 8.44(H) 1.56 - 6.45 x10(9)/L 09/10/2023 10:43 AM CDT DHPM Lymphocytes 0.84(L) 0.95 - 3.07 x10(9)/L 09/10/2023 10:43 AM CDT DTL Monocytes 0.58 0.26 - 0.81 x10(9)/L 09/10/2023 10:43 AM CDT DTL Eosinophils 0.12 0.03 - 0.48 x10(9)/L 09/10/2023 10:43 AM CDT DTL Basophils 0.07 0.01 - 0.08 x10(9)/L 09/10/2023 10:43 AM CDT DTL Blood (Blood, Venous) 09/10/2023 9:23 AM CDT 09/10/2023 9:48 AM CDT Na Hernandez M.D., Ph.D. 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 [address] [place] [id number] PCP - General Family Medicine 11/09/22 documented as of this encounter
--- OUTSIDE RECORDS SUMMARY | 2023-11-05 22:13 | XMS_ITS | Encounter Summary ---
Author Organization [facility] Address [address] [place] [address] Care Team Providers Care Duplicating Machine Operator Name Role Phone Mark Colorado M.D. Primary Care Provider [phone] Encounter Details Date Type Department Care Team (Late st Contact Info) Description 08/02/2023 Orders Only Division of Gastroenterology in [place], [place] [address] [place] [phone] Dallas Vallecillo M.D. [address] [place] [phone] Social History Tobacco Use Types Packs/Day Years [...] have a [facility] place to live 09/10/2022 Sex and Gender Information Value Date Recorded Sex Assigned at Male 09/10/2022 12:02 PM CDT Gender Identity Male 09/10/2022 12:02 PM CDT Sexual Orientation Straight 09/10/2022 12 :02 PM CDT documented as of this encounter Plan of Treatment Upcoming Encounters Date Type Department Care Team (Latest Contact Info) Description 11/07/2023 3:15 PM CDT Clinical Communication Virtual Review in [place], [place] 200 [place] [address] 11/15/2023 6:40 AM CDT Lab Department of Laboratory Medicine and Pathology, [facility], in [place], [place] [address] [place] [phone] Loyda Lennon M.D. [address] [place] [phone] 11/15/2023 8:20 AM CDT Office Visit Department of Oncology in [address] [address] Manjit Velasquez APRN, C.N.P., D.N.P. [address] [place] [phone] 11/15/2023 9:30 AM CDT Comprehensive Visit Department of Palliative Care in [place], [place] [address] [place] [phone] Patty Gomez APRN, C.N.P., M.S.N. [address] [place] [phone] 11/15/2023 2:15 PM CDT Infusion Department of Oncology in [place], [place] [address] [place] [address] Loyda Lennon M.D. [address] [place] [phone] 11/22/2023 7:30 AM CDT Lab Department of Oncology in [place], [place] [address] [place] [phone] Loyda Lennon M.D. [address] [place] [address] 11/22/2023 8:45 AM CDT Infusion Department of Oncology in [place], [place] [address] [place] [phone] Loyda Lennon M.D. [address] [place] [phone] 11/28/2023 3:30 PM CDT Clinical Communication Virtual Review in [place], [place] [address] [place] [address] 11/29/2023 9:00 AM CDT Procedure visit Department of Urology in [place], [place] [address] [place] [phone] Mark Colorado M.D. [facility] [place] [phone] 11/29/2023 11:20 AM CDT Lab Department of Laboratory Medicine and Pathology, [facility], in [place], [place] [address] [place] [phone] Loyda Lennon M.D. [address] [place] [phone] 11/29/2023 11:30 AM CDT Lab Department of Oncology in [place], [place] [address] [place] [phone] Loyda Lennon M.D. [address] [place] [phone] 11/29/2023 1:00 PM CDT Infusion Department of Oncology in [place], [place] [address] [place] [phone] Loyda Lennon M.D. [address] [place] [phone] 12/03/2023 1:45 PM CDT Comprehensive Visit Department of Urology in [place], [place] [address] [place] [phone] Mona Egan P.A.-C. [address] [place] [phone] 12/05/2023 1:20 PM CDT Comprehensive Visit Department of Oncology in [place], [place] [address] [place] [phone] Letty Kate M.D. [address] [place] [phone] 12/10/2023 3:00 PM CDT Clinical Communication Virtual Review in [place], [place] [address] [place] [address] 12/10/2023 3:30 PM CDT Procedure visit Department of Urology in [place], [place] [address] [place] [phone] Mark Colorado M.D. [address] [place] [phone] 12/12/2023 3:45 PM CDT Appointment Department of Radiology, [facility], in [place], [place] [address] [place] [address] Na Hernandez M.D., Ph.D. [address] [place] [phone] 12/13/2023 6:00 AM CDT Lab Department of Laboratory Medicine and Pathology, [facility], in [place], [place] [address] [place] [phone] Loyda Lennon M.D. [address] [place] [address] 12/13/2023 6:20 AM CDT Lab Department of Infusion Therapy in [place], [place] [address] [place] [phone] Loyda Lennon M.D. [address] [place] [phone] 12/13/2023 11:10 AM CDT Office Visit Department of Oncology in [address] [address] Na Hernandez M.D., Ph.D. [address] [place] [phone] 12/13/2023 1:00 PM CDT Infusion Department of Oncology in [address] [address] Loyda Lennon M.D. [address] [place] [phone] 12/20/2023 9:20 AM CDT Lab Department of Infusion Therapy in [address] [address] Loyda Lennon M.D. [address] [place] [phone] 12/20/2023 10:30 AM CDT Infusion Department of Oncology in [address] [address] Loyda Lennon M.D. [address] [place] [phone] 12/25/2023 10:30 AM CDT Appointment Division of Gastroenterology in [place], [place] [address] [place] [phone] Na Hernandez M.D., Ph.D. [address] [place] [phone] 12/27/2023 10:15 AM CDT Lab Department of Oncology in [place], [place] [address] [place] [address] Loyda Lennon M.D. [address] [place] [phone] 12/27/2023 10:30 AM CDT Lab Department of Laboratory Medicine and Pathology, [facility] in [address] [address] Loyda Lennon M.D. [address] [place] [phone] 12/27/2023 11:45 AM CDT Infusion Department of Oncology in [address] [phone] Loyda Lennon M.D. [address] [place] [phone] 01/03/2024 1:00 PM CDT Clinical Communication Virtual Review in [place], [place] [address] [place] [address] 01/10/2024 8:00 AM CDT Lab Department of Infusion Therapy in [address] [address] Loyda Lennon M.D. [address] [place] [phone] 01/10/2024 8:20 AM CDT Lab Department of Laboratory Medicine and Pathology, [facility] in [place], [place] [address] [place] [phone] Loyda Lennon M.D. [address] [place] [phone] 01/10/2024 10:30 AM CDT Office Visit Department of Oncology in [place], [place] [address] [place] [phone] Na Hernandez M.D., Ph.D. [address] [place] [phone] 01/10/2024 11:45 AM CDT Infusion Department of Oncology in [place], [place] [address] [place] [phone] Loyda Lennon M.D. [address] [place] [phone] 01/17/2024 8:45 AM CDT Lab Department of Oncology in [place], [place] [address] [place] [phone] Loyda Lennon M.D. [address] [place] [phone] 01/17/2024 10:00 AM CDT Infusion Department of Oncology in [place], [place] [address] [place] [phone] Loyda Lennon M.D. [address] [place] [phone] 01/24/2024 8:00 AM CDT Lab Department of Laboratory Medicine and Pathology, [facility], in [place], [place] [address] [place] [phone] Loyda Lennon M.D. [address] [place] [phone] 01/24/2024 8:15 AM CDT Lab Department of Oncology in [place], [place] [address] [place] [address] Loyda Lennon M.D. [address] [place] [phone] 01/24/2024 9:15 AM CDT Infusion Department of Oncology in [place], [place] [address] [place] [address] Loyda Lennon M.D. [address] [place] [address] Scheduled Procedures Name Priority Associated Diagnoses Date/Ti me HEPATECTOMY RESECTION LIVER Cholangiocarcinoma (HCC) ULTRASOUND LIVER Cholangiocarcinoma (HCC) RECONSTRUCTION PORTAL VEIN Cholangiocarcinoma (HCC) documented as of this encounter Visit Diagnoses Not on filedocumented in this encounter Additional Health Concerns Infection Onset Date Last Indicated Resolved Time Protective Environment 11/07/2022 11/07/2022 documented as of this encounter Care Teams Duplicating Machine Operator Relationship Specialty Start Date End Date Mark Colorado M.D. [address] [place] [address] PCP - General Family Medicine 11/09/22 documented as of this encounter
--- OUTSIDE RECORDS SUMMARY | 2023-11-05 22:13 | XMS_ITS | Encounter Summary ---
Author Organization [facility] Address [address] [place] [address] Care Team Providers Care Office Machine Repair Shop Supervisor Name Role Phone Mark Colorado M.D. Primary Care Provider [phone] Encounter Details Date Type Department Care Team (Late st Contact Info) Description 08/02/2023 Orders Only Division of Gastroenterology in [place], [place] [address] [place] [phone] Teressa Lazaro APRN, C.N.P., D.N.P., M.S.N. [address] [place] [address] Social History Tobacco Use Types Packs/Day Years [...] your living situation today? I have a [facility] place to live 09/10/2022 Sex [...] PM CDT Clinical Communication Virtual Review in [place], [place] [address] [place] [address] 11/15/2023 6:40 AM CDT Lab Department of Laboratory Medicine and Pathology, [facility], in [address] [address] Loyda Lennon M.D. [address] [place] [phone] 11/15/2023 8:20 AM CDT Office Visit Department of Oncology in [address] [address] Manjit Velasquez APRN, C.N.P., D.N.P. [address] [place] [phone] 11/15/2023 9:30 AM CDT Comprehensive Visit Department of Palliative Care in [address] [address] Patty Gomez APRN, C.N.P., M.S.N. [address] [place] [phone] 11/15/2023 2:15 PM CDT Infusion Department of Oncology in [address] [address] Loyda Lennon M.D. [address] [place] [address] 11/22/2023 7:30 AM CDT Lab Department of Oncology in [place], [place] [address] [place] [address] Loyda Lennon M.D. [address] [place] [address] 11/22/2023 8:45 AM CDT Infusion Department of Oncology in [place], [place] [address] [place] [address] Loyda Lennon M.D. [address] [place] [phone] 11/28/2023 3:30 PM CDT Clinical Communication Virtual Review in [place], [place] [address] [place] [address] 11/29/2023 9:00 AM CDT Procedure visit Department of Urology in [place], [place] [address] [place] [phone] Mark Colorado M.D. [facility] [place] [address] [place] [address] 11/29/2023 11:20 AM CDT Lab Department of Laboratory Medicine and Pathology, [facility], in [place], [place] [address] [place] [phone] Loyda Lennon M.D. [address] [place] [phone] 11/29/2023 11:30 AM CDT Lab Department of Oncology in [place], [place] [address] [place] [phone] Lyoda Lennon M.D. [address] [place] [phone] 11/29/2023 1:00 PM CDT Infusion Department of Oncology in [place], [place] [address] [place] [phone] Loyda Lennon M.D. [address] [place] [address] 12/03/2023 1:45 PM CDT Comprehensive Visit Department of Urology in [place], [place] [address] [place] [phone] Mona Egan P.A.-C. [address] [place] [address] 12/05/2023 1:20 PM CDT Comprehensive Visit Department of Oncology in [place], [place] [address] [place] [phone] Letty Kate M.D. [address] [place] [phone] 12/10/2023 3:00 PM CDT Clinical Communication Virtual Review in [place], [place] [address] [place] [address] 12/10/2023 3:30 PM CDT Procedure visit Department of Urology in [place], [place] [address] [place] [phone] Mark Colorado M.D. [address] [place] [address] [place] [address] 12/12/2023 3:45 PM CDT Appointment Department of Radiology, [facility], in [place], [place] [address] [place] [phone] Na Hernandez M.D., Ph.D. [address] [place] [phone] 12/13/2023 6:00 AM CDT Lab Department of Laboratory Medicine and Pathology, [facility], in [place], [place] [address] [place] [phone] Loyda Lennon M.D. [address] [place] [phone] 12/13/2023 6:20 AM CDT Lab Department of Infusion Therapy in [place], [place] [address] [place] [phone] Loyda Lennon M.D. [address] [place] [address] 12/13/2023 11:10 AM CDT Office Visit Department of Oncology in [place], [place] [address] [place] [phone] Na Hernandez M.D., Ph.D. [address] [place] [phone] 12/13/2023 1:00 PM CDT Infusion Department of Oncology in [address] [address] Loyda Lennon M.D. [address] [place] [phone] 12/20/2023 9:20 AM CDT Lab Department of Infusion Therapy in [place], [place] [address] [place] [phone] Loyda Lennon M.D. [address] [place] [address] 12/20/2023 10:30 AM CDT Infusion Department of Oncology in [address] [address] Loyda Lennon M.D. [address] [place] [phone] 12/25/2023 10:30 AM CDT Appointment Division of Gastroenterology in [place], [place] [address] [place] [phone] Na Hernandez M.D., Ph.D. [address] [place] [phone] 12/27/2023 10:15 AM CDT Lab Department of Oncology in [place], [place] [address] [place] [phone] Loyda Lennon M.D. [address] [place] [phone] 12/27/2023 10:30 AM CDT Lab Department of Laboratory Medicine and Pathology, [facility] in [place], [place] [address] [place] [phone] Loyda Lennon M.D. [address] [place] [phone] 12/27/2023 11:45 AM CDT Infusion Department of Oncology in [address] [address] Loyda Lennon M.D. [address] [place] [phone] 01/03/2024 1:00 PM CDT Clinical Communication Virtual Review in [place], [place] [address] [place] [address] 01/10/2024 8:00 AM CDT Lab Department of Infusion Therapy in [address] [address] Loyda Lennon M.D. [address] [place] [phone] 01/10/2024 8:20 AM CDT Lab Department of Laboratory Medicine and Pathology, [facility], in [place], [place] [address] [place] [address] Loyda Lennon M.D. [address] [place] [phone] 01/10/2024 10:30 AM CDT Office Visit Department of Oncology in [place], [place] [address] [place] [address] Na Hernandez M.D., Ph.D. [address] [place] [address] 01/10/2024 11:45 AM CDT Infusion Department of Oncology in [place], [place] [address] [place] [address] Loyda Lennon M.D. [address] [place] [address] 01/17/2024 8:45 AM CDT Lab Department of Oncology in [place], [place] [address] [place] [address] Loyda Lennon M.D. [address] [place] [phone] 01/17/2024 10:00 AM CDT Infusion Department of Oncology in [place], [place] [address] [place] [phone] Loyda Lennon M.D. [address] [place] [phone] 01/24/2024 8:00 AM CDT Lab Department of Laboratory Medicine and Pathology, [facility], in [place], [place] [address] [place] [address] Loyda Lennon M.D. [address] [place] [phone] 01/24/2024 8:15 AM CDT Lab Department of Oncology in [place], [place] [address] [place] [address] Loyda Lennon M.D. [address] [place] [address] 01/24/2024 9:15 AM CDT Infusion Department of Oncology in [place], [place] [address] [place] [address] Loyda Lennon M.D. [address] [place] [phone] Scheduled Procedures Name Priority Associated Diagnoses Date/Ti me HEPATECTOMY RESECTION LIVER Cholangiocarcinoma (HCC) ULTRASOUND LIVER Cholangiocarcinoma (HCC) RECONSTRUCTION PORTAL VEIN Cholangiocarcinoma (HCC) documented as of this encounter Visit Diagnoses Not on filedocumented in this encounter Additional Health Concerns Infection Onset Date Last Indicated Resolved Time Protective Environment 11/07/2022 11/07/2022 documented as of this encounter Care Teams Office Machine Repair Shop Supervisor Relationship Specialty Start Date End Date Mark Colorado M.D. [facility] [place] [address] PCP - General Family Medicine 11/09/22 documented as of this encounter
--- OUTSIDE RECORDS SUMMARY | 2023-11-05 22:13 | XMS_ITS | Encounter Summary ---
Author Organization [facility] Address [address] [place] [address] Care Team Providers Care Personnel Specialist Name Role Phone Mark Colorado M.D. Primary Care Provider [phone] Reason for Referral * Outpatient (Routine) - Closed Specialty Diagnoses / Procedures Referred By Contac t Referred To Contact Diagnoses Cholangiocarcinoma (HCC) Stricture Biliary (HCC) Procedures FL Fluoro Less Than 1 Hour Na Hernandez M.D., Ph.D. [address] [place] [address] [facility] Referral ID Status Reason Start Date Expiration Date Visits Re quested Visits Authorized [id number] Closed 08/02/2023 08/01/2024 1 1 Reason for Visit * Outpatient (Routine) - Closed Specialty Diagnoses / Procedures Referred By Chloe t Referred To Contact Diagnoses Cholangiocarcinoma (HCC) Stricture Biliary (HCC) Procedures FL Fluoro Less Than 1 Hour Na Hernandez M.D., Ph.D. [address] [place] [address] [facility] Referral ID Status Reason Start Date Expiration Date Visits Re quested Visits Authorized [id number] Closed 08/02/2023 08/01/2024 1 1 Encounter Details Date Type Department Care Team (Latest Contact Info) Description 08/02/2023 3:46 PM CDT - 08/02/2023 11:59 PM CDT Hospital Encounter Department of Radiology, [facility], in [place], [place] [address] [place] [phone] Na Hernandez M.D., Ph.D. [address] [place] [phone] Cholangiocarcinoma (HCC); Stricture Biliary (HCC) Discharge Disposition: [...] your living situation today? [facility] 09/10/2022 Sex and Gender [...] Take 200 mg by mouth daily. glucosamine lty-knpptqlrxp-noe 500-200-150 mg tablet Take 1 tablet by [...] by mouth daily. 90 capsule 3 02/14/2023 levoFLOXacin (LEVAQUIN) 500 mg tablet Take 1 tablet (500 mg total) by mouth daily for 5 days. Please take your first dose tomorrow morning. 5 tablet 08/02/2023 08/07/2023 prochlorperazine (COMPAZINE) 10 mg tabletIndications:Ch olangiocarcinoma (HCC),Half-Way Current Drug Therapy, Chemotherapy Take 1 [...] 09/11/2023 ondansetron (ZOFRAN) 8 mg tabletIndications:Ch olangiocarcinoma (HCC),[employer] Current Drug Therapy, Chemotherapy Take 1 tablet (8 mg total) by mouth every 8 (eight) hours as needed for nausea or vomiting. 30 tablet 3 11/02/2022 10/02/2023 documented as of this encounter Plan of Treatment Upcoming Encounters Date Type Department Care Team (Latest Contact Info) Description 11/07/2023 3:15 PM CDT Clinical Communication Virtual Review in [address] [phone] 11/15/2023 6:40 AM CDT Lab Department of Laboratory Medicine and Pathology, [facility] in [address] [phone] Loyda Lennon M.D. [address] [place] [phone] 11/15/2023 8:20 AM CDT Office Visit Department of Oncology in [address] [phone] Manjit Velasquez, MANAGER [employer]NC[employer], C.N.P., D.N.P. [address] [place] [phone] 11/15/2023 9:30 AM CDT Comprehensive Visit Department of Palliative Care in [address] [phone] Patty Gomez APRN, C.N.P., M.S.N. [address] [place] [phone] 11/15/2023 2:15 PM CDT Infusion Department of Oncology in [place], [place] [address] [place] [phone] Loyda Lennon M.D. [address] [place] [phone] 11/22/2023 7:30 AM CDT Lab Department of Oncology in [place], [place] [address] [place] [phone] Loyda Lennon M.D. [address] [place] [phone] 11/22/2023 8:45 AM CDT Infusion Department of Oncology in [place], [place] [address] [place] [phone] Loyda Lennon M.D. [address] [place] [phone] 11/28/2023 3:30 PM CDT Clinical Communication Virtual Review in [place], [place] [address] [place] [address] 11/29/2023 9:00 AM CDT Procedure visit Department of Urology in [place], [place] [address] [place] [phone] Mark Colorado M.D. [facility] [place] [phone] 11/29/2023 11:20 AM CDT Lab Department of Laboratory Medicine and Pathology, [facility], in [place], [place] [address] [place] [phone] Loyda Lennon M.D. [address] [place] [phone] 11/29/2023 11:30 AM CDT Lab Department of Oncology in [place], [place] [address] [place] [phone] Loyda Lennon M.D. [address] [place] [phone] 11/29/2023 1:00 PM CDT Infusion Department of Oncology in [place], [place] [address] [place] [phone] Loyda Lennon M.D. [address] [place] [phone] 12/03/2023 1:45 PM CDT Comprehensive Visit Department of Urology in [place], [place] [address] [place] [phone] Mona Egan, PHoldenAHolden-Sara [address] [place] [phone] 12/05/2023 1:20 PM CDT Comprehensive Visit Department of Oncology in [place], [place] [address] [place] [phone] Letty Kate M.D. [address] [place] [phone] 12/10/2023 3:00 PM CDT Clinical Communication Virtual Review in [place], [place] [address] [place] [address] 12/10/2023 3:30 PM CDT Procedure visit Department of Urology in [place], [place] [address] [place] [phone] Mark Colorado M.D. [address] [place] [address] 12/12/2023 3:45 PM CDT Appointment Department of Radiology, [facility], in [place], [place] [address] [place] [phone] Na Hernandez M.D., Ph.D. [address] [place] [phone] 12/13/2023 6:00 AM CDT Lab Department of Laboratory Medicine and Pathology, [facility] in [place], [place] [address] [place] [phone] Loyda Lennon M.D. [address] [place] [phone] 12/13/2023 6:20 AM CDT Lab Department of Infusion Therapy in [address] [phone] Loyda Lennon M.D. [address] [place] [phone] 12/13/2023 11:10 AM CDT Office Visit Department of Oncology in [address] [phone] Na Hernandez M.D., Ph.D. [address] [place] [phone] 12/13/2023 1:00 PM CDT Infusion Department of Oncology in [address] [phone] Loyda Lennon M.D. [address] [place] [phone] 12/20/2023 9:20 AM CDT Lab Department of Infusion Therapy in [address] [phone] Loyda Lennon M.D. [address] [place] [phone] 12/20/2023 10:30 AM CDT Infusion Department of Oncology in [place], [place] [address] [place] [phone] Loyda Lennon M.D. [address] [place] [phone] 12/25/2023 10:30 AM CDT Appointment Division of Gastroenterology in [address] [phone] Na Hernandez M.D., Ph.D. [address] [place] [phone] 12/27/2023 10:15 AM CDT Lab Department of Oncology in [address] [phone] Loyda Lennon M.D. [address] [place] [phone] 12/27/2023 10:30 AM CDT Lab Department of Laboratory Medicine and Pathology, [facility] in [address] [phone] Loyda Lennon M.D. [address] [place] [phone] 12/27/2023 11:45 AM CDT Infusion Department of Oncology in [address] [phone] Loyda Lennon M.D. [address] [place] [phone] 01/03/2024 1:00 PM CDT Clinical Communication Virtual Review in [address] [address] 01/10/2024 8:00 AM CDT Lab Department of Infusion Therapy in [place], [place] [address] [place] [phone] Loyda Lennon M.D. [address] [place] [phone] 01/10/2024 8:20 AM CDT Lab Department of Laboratory Medicine and Pathology, [facility] in [place], [place] [address] [place] [phone] Loyda Lennon M.D. [address] [place] [phone] 01/10/2024 10:30 AM CDT Office Visit Department of Oncology in [address] [phone] Na Hernandez M.D., Ph.D. [address] [place] [phone] 01/10/2024 11:45 AM CDT Infusion Department of Oncology in [place], [place] [address] [place] [phone] Loyda Lennon M.D. [address] [place] [phone] 01/17/2024 8:45 AM CDT Lab Department of Oncology in [place], [place] [address] [place] [phone] Loyda Lennon M.D. [address] [place] [phone] 01/17/2024 10:00 AM CDT Infusion Department of Oncology in [address] [phone] Loyda Lennon M.D. [address] [place] [phone] 01/24/2024 8:00 AM CDT Lab Department of Laboratory Medicine and Pathology, [facility], in [place], [place] [address] [place] [phone] Loyda Lennon M.D. [address] [place] [phone] 01/24/2024 8:15 AM CDT Lab Department of Oncology in [place], [place] [address] [place] [phone] Loyda Lennon M.D. [address] [place] [phone] 01/24/2024 9:15 AM CDT Infusion Department of Oncology in [address] [phone] Loyda Lennon M.D. [address] [place] [phone] Scheduled Procedures Name Priority Associated Diagnoses Date/Ti me HEPATECTOMY RESECTION LIVER Cholangiocarcinoma (HCC) ULTRASOUND LIVER Cholangiocarcinoma (HCC) RECONSTRUCTION PORTAL VEIN Cholangiocarcinoma (HCC) documented as of this encounter Procedures Procedure Name Priority Date/Time Associated Diagnosis Comments FL FLUORO LESS THAN 1 HOUR RAD - Routine (most inpatients and all outpatients) 08/02/2023 5:39 PM CDT Cholangiocarcinom a (HCC) Stricture Biliary (HCC) documented in this encounter Results * FL Fluoro Less Than 1 Hour (08/02/2023 5:39 PM CDT) Narrative ERCP LOS RST - 08/02/2023 5:39 PM CDT This exam does not require a radiologist review or interpretation. Please refer to the patient's medical record on this date for clinical details. Na Hernandez M.D., Ph.D. IMG FLUOROS COPY PROCEDURES ERCP LOS RST documented in this encounter Visit Diagnoses Diagnosis Cholangiocarcinoma (HCC) Stricture Biliary (HCC) documented in this encounter Additional Health Concerns Infection Onset Date Last Indicated Resolved Time Protective Environment 11/07/2022 11/07/2022 documented as of this encounter Care Teams Personnel Specialist Relationship Specialty Start Date End Date Mark Colorado M.D. [address] [place], [place] [phone] PCP - General Family Medicine 11/09/22 documented as of this encounter
--- OUTSIDE RECORDS SUMMARY | 2023-11-05 22:13 | XMS_ITS | Encounter Summary ---
Author Organization [facility] Address [address] [place] [address] Care Team Providers Care Culinary Specialist Name Role Phone Mark Colorado M.D. Primary Care Provider [phone] Reason for Referral * Outpatient (Routine) - Authorized Specialty Diagnoses / Procedures Referred By Contreema t Referred To Contact Diagnoses Stricture Biliary (HCC) Procedures ERCP Na Hernandez M.D., Ph.D. [address] [place] [address] [facility] Referral ID Status Reason Start Date Expiration Date V isits Requested Visits Authorized [id number] Authorized 08/05/2023 08/04/2024 1 1 Reason for Visit * Outpatient (Routine) - Closed Specialty Diagnoses / Procedures Referred By Chloe t Referred To Contact Oncology Diagnoses Cholangiocarcinoma (HCC) Na Hernandez M.D., Ph.D. [address] [place] [address] [facility] Referral ID Status Reason Start Date Expiration Date Visits Re quested Visits Authorized [id number] Closed 06/17/2023 12/16/2024 1 1 Encounter Details Date Type Department Care Team (Late st Contact Info) Description 08/02/2023 9:50 AM CDT Office Visit Department of Oncology in [place], [place] [address] [place] [phone] Na Hernandez M.D., Ph.D. [address] [place] [phone] Hypertension Essential Primary (Primary Dx); Cholangiocarcinoma (HCC); Stricture Biliary (HCC) Social History Tobacco Use Types Packs/Day [...] [facility] place to live 09/10/2022 Sex and Gender Information Value Date Recorded Sex Assigned at Male 09/10/2022 12:02 PM CDT Gender Identity Male 09/10/2022 12:02 PM CDT Sexual Orientation Straight 09/10/2022 12 :02 PM CDT documented as of this encounter Last Filed Vital Signs Vital Sign Reading Time Taken Comments Blood Pressure 153/67 08/02/2023 9:30 AM CDT Pulse 65 08/02/2023 9:30 AM CDT Temperature 37 ??C (98.6 ??F) 08/02/2023 9:30 AM CDT Respiratory Rate 17 08/02/2023 9:30 AM CDT Oxygen Saturation 97% 08/02/2023 9:30 AM CDT Inhaled Oxygen Concentration - - Weight 91.5 kg (201 lb 11.5 oz) 08/02/2023 9:30 AM CDT Height 183 cm (6' 0.05) 08/02/2023 9:30 AM CDT Body Mass Index 27.32 08/02/2023 9:30 AM CDT documented in this encounter Progress Notes * Na Hernandez M.D., Ph.D. - 08/02/2023 9:50 AM CDT Images from the original note were not included. SUBJECTIVE LOCAL ONCOLOGIST No care steam conditioning operator to display PRIMARY [facility] ONCOL[facility]IST Na Hernandez M.D., Ph.D. CHIEF COMPLAINT / REASON FOR VISIT Jorge Luis Sepulveda is a 68 y.o. male who presents for follow-up of metastatic intrahepatic cholangiocarcinoma Cancer Staging Cholangiocarcinoma (HCC) Staging form: Intrahepatic Bile Duct, AJCC 8th Edition - Clinical stage from 10/12/2022: Stage IB (cT1b, cN0, cM0) - Pathologic stage from 01/09/2023: Stage IV (pM1) Current Therapy: [facility] CTX-009-002 ( CTX-009 / PACLitaxel [...] Genotyping POSITIVE Germline genetic testing in 2022; [employer] [facility] + RNA panel from [facility]. 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 One Variant of Uncertain Significance (VUS) identified in the BRCA1 gene, specifically c.3607C>G 06/18/2023 - Research Study Participant Research Study: A Study of CTX-009 in Combination With Paclitaxel in Adult Patients With Unresectable Advanced, Metastatic or Recurrent Biliary Tract Cancers ([employer] MINER-002) ([id number]) Treatment Protocol: [facility] CTX-009-002 ( CTX-009 / PACLitaxel ) Interval history: Mr. Sepulveda returns to clinic for restaging after crossing over to the experimental arm of CTX-009 + paclitaxel. On cycle 2, day 15 he received study drug only due to neutropenia. This treatment was delayed by 1 day due to a problem with compounding. On evaluation today, fatigue and abdominal pain are his biggest symptoms of concern. He notices more fatigue since crossing over with the addition of CTX- 009, versus when he was on paclitaxel monotherapy. However he continues to stay active and is doing his normal activities without cutting back significantly. He notices abdominal pain across the lower abdomen particularly on day 3-4 after treatment and takes Dilaudid as needed on those days. He started taking amlodipine for hypertension on this regimen, and amlodipine was increased to 10 mg daily recently. At home his blood pressures have been running 170s over 80s, with lower readings in clinic. He brought his home blood pressure cuff for comparison in clinic today. His home BP cuff read 171/77, while the large cuff in clinic read 153/67. He notices in the morning he feels more nauseated, which improves after eating. A.m. blood glucose has been around 100. His appetite is good. He also reports difficulty fully emptying his bladder if he is sitting to urinate. He is on Flomax. Medications and allergies reviewed. OBJECTIVE PHYSICAL EXAMINATION General: Patient is well-appearing, in [...] LABORATORY DATA Lab data reviewed. RADIOLOGICAL DATA CT Abdomen Pelvis with IV Contrast Result Date: 08/01/2023 Impression: 1. Peritoneal metastatic disease has decreased since 06/05/2023. 2. No measurable change in size of perihilar cholangiocarcinoma. 3. Slight increase in mild splenomegaly. Increase in small volume ascites. CT Chest with IV Contrast Result Date: 07/31/2023 Impression: 1. No significant change since 06/05/2023 including a few previously stable tiny nodules and mildly prominent thoracic nodes. 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 Sepulveda is a 68-year-old [...] now returns for restaging after 2 cycles. Clinically he is tolerating treatment well. He required omission of paclitaxel on cycle 2, day 15 due to neutropenia. We discussed the possibility of adding Neulasta if neutropenia is his only limiting toxicity. We reviewed his restaging scans today, which show stability of the primary tumor and slight decrease of peritoneal carcinomatosis (see screenshot above). CA 19-9 is stable at 146 versus 140 previously. This is consistent with stable disease, and encouraging, given the progression of his peritoneal metastases on prior regimens. I recommended continuing treatment on the trial. We will work on optimizing his blood pressure as below. Plan: - continue per the CTX-009 protocol - consider adding Neulasta with cycle 3 due to neutropenia in cycle 2, or as dictated by the trial protocol - for hypertension, continue amlodipine 10 mg daily, add lisinopril 5 mg daily. Keep home blood pressure log for review in clinic. We will monitor electrolytes with pre chemotherapy labs. - ERCP today for biliary stent exchange, next due in 3 months (ordered) Intent to Change Therapy: No ADMINISTRATIVE BILLING I spent 40 minutes face to face and non-face to face caring for the patient today. documented in this encounter Plan of Treatment Upcoming Encounters Date Type Department Care Team (Latest Contact Info) Description 11/07/2023 3:15 PM CDT Clinical Communication Virtual Review in [place], [place] [address] [place] [phone] 11/15/2023 6:40 AM CDT Lab Department of Laboratory Medicine and Pathology, [facility], in [place], [place] [address] [place] [phone] Loyda Lennon M.D. [address] [place] [phone] 11/15/2023 8:20 AM CDT Office Visit Department of Oncology in [address] [phone] Manjit Velasquez APRN, C.N.P., D.N.P. [address] [place] [phone] 11/15/2023 9:30 AM CDT Comprehensive Visit Department of Palliative Care in [address] [phone] Patty Gomez APRN, C.N.P., M.S.N. [address] [place] [address] 11/15/2023 2:15 PM CDT Infusion Department of Oncology in [address] [address] Loyda Lennon M.D. [address] [place] [phone] 11/22/2023 7:30 AM CDT Lab Department of Oncology in [address] [phone] Loyda Lennon M.D. [address] [place] [phone] 11/22/2023 8:45 AM CDT Infusion Department of Oncology in [place], [place] [address] [place] [phone] Loyda Lennon M.D. [address] [place] [address] 11/28/2023 3:30 PM CDT Clinical Communication Virtual Review in [place], [place] [address] [place] [address] 11/29/2023 9:00 AM CDT Procedure visit Department of Urology in [place], [place] [address] [place] [phone] Mark Colorado M.D. [address] [place] [address] [place] [address] 11/29/2023 11:20 AM CDT Lab Department of Laboratory Medicine and Pathology, [facility] in [place], [place] [address] [place] [phone] Loyda Lennon M.D. [address] [place] [address] 11/29/2023 11:30 AM CDT Lab Department of Oncology in [address] [address] Loyda Lennon M.D. [address] [place] [address] 11/29/2023 1:00 PM CDT Infusion Department of Oncology in [place], [place] [address] [place] [phone] Loyda Lennon M.D. [address] [place] [address] 12/03/2023 1:45 PM CDT Comprehensive Visit Department of Urology in [place], [place] [address] [place] [phone] Mona Egan P.A.-C. [address] [place] [phone] 12/05/2023 1:20 PM CDT Comprehensive Visit Department of Oncology in [place], [place] [address] [place] [phone] Letty Kate M.D. [address] [place] [address] 12/10/2023 3:00 PM CDT Clinical Communication Virtual Review in [place], [place] [address] [place] [address] 12/10/2023 3:30 PM CDT Procedure visit Department of Urology in [place], [place] [address] [place] [phone] Mark Colorado M.D. [address] [place] [address] [place] [address] 12/12/2023 3:45 PM CDT Appointment Department of Radiology, [facility], in [place], [place] [address] [place] [phone] Na Hernandez M.D., Ph.D. [address] [place] [address] 12/13/2023 6:00 AM CDT Lab Department of Laboratory Medicine and Pathology, [facility], in [place], [place] [address] [place] [phone] Loyda Lennon M.D. [address] [place] [address] 12/13/2023 6:20 AM CDT Lab Department of Infusion Therapy in [place], [place] [address] [place] [phone] Loyda Lennon M.D. [address] [place] [address] 12/13/2023 11:10 AM CDT Office Visit Department of Oncology in [place], [place] [address] [place] [phone] Na Hernandez M.D., Ph.D. [address] [place] [address] 12/13/2023 1:00 PM CDT Infusion Department of Oncology in [address] [phone] Loyda Lennon M.D. [address] [place] [address] 12/20/2023 9:20 AM CDT Lab Department of Infusion Therapy in [place], [place] [address] [place] [phone] Loyda Lennon M.D. [address] [place] [address] 12/20/2023 10:30 AM CDT Infusion Department of Oncology in [address] [address] Loyda Lennon M.D. [address] [place] [phone] 12/25/2023 10:30 AM CDT Appointment Division of Gastroenterology in [address] [phone] Na Hernandez M.D., Ph.D. [address] [place] [phone] 12/27/2023 10:15 AM CDT Lab Department of Oncology in [place], [place] [address] [place] [phone] Loyda Lennon M.D. [address] [place] [address] 12/27/2023 10:30 AM CDT Lab Department of Laboratory Medicine and Pathology, [facility] in [place], [place] [address] [place] [phone] Loyda Lennon M.D. [address] [place] [phone] 12/27/2023 11:45 AM CDT Infusion Department of Oncology in [address] [phone] Loyda Lennon M.D. [address] [place] [address] 01/03/2024 1:00 PM CDT Clinical Communication Virtual Review in [place], [place] [address] [place] [address] 01/10/2024 8:00 AM CDT Lab Department of Infusion Therapy in [place], [place] [address] [place] [phone] Loyda Lennon M.D. [address] [place] [address] 01/10/2024 8:20 AM CDT Lab Department of Laboratory Medicine and Pathology, [facility], in [place], [place] [address] [place] [phone] Loyda Lennon M.D. [address] [place] [address] 01/10/2024 10:30 AM CDT Office Visit Department of Oncology in [place], [place] [address] [place] [phone] Na Hernandez M.D., Ph.D. [address] [place] [phone] 01/10/2024 11:45 AM CDT Infusion Department of Oncology in [place], [place] [address] [place] [phone] Loyda Lennon M.D. [address] [place] [address] 01/17/2024 8:45 AM CDT Lab Department of Oncology in [place], [place] [address] [place] [phone] Loyda Lennon M.D. [address] [place] [address] 01/17/2024 10:00 AM CDT Infusion Department of Oncology in [place], [place] [address] [place] [phone] Loyda Lennon M.D. [address] [place] [address] 01/24/2024 8:00 AM CDT Lab Department of Laboratory Medicine and Pathology, [facility], in [place], [place] [address] [place] [phone] Loyda Lennon M.D. [address] [place] [phone] 01/24/2024 8:15 AM CDT Lab Department of Oncology in [place], [place] [address] [place] [phone] Loyda Lennon M.D. [address] [place] [phone] 01/24/2024 9:15 AM CDT Infusion Department of Oncology in [place], [place] [address] [place] [phone] Loyda Lennon M.D. [address] [place] [address] Scheduled Orders Name Type Priority Associated Diagnoses Orde r Schedule ERCP GI Routine Stricture Biliary (HCC) Expected: 11/05/2023, Expires: 11/04/2024 Scheduled Procedures Name Priority Associated Diagnoses Date/Ti me HEPATECTOMY RESECTION LIVER Cholangiocarcinoma (HCC) ULTRASOUND LIVER Cholangiocarcinoma (HCC) RECONSTRUCTION PORTAL VEIN Cholangiocarcinoma (HCC) documented as of this encounter Procedures Procedure Name Priority Date/Time Associated Diagnosis Comments CARBOHYDRATE AG 19-9 (CA 19-9), S Routine 07/30/2023 6:57 AM CDT Cholangiocarcinoma (HCC) documented in this encounter Results * (ABNORMAL) Carbohydrate Antigen 19-9 (CA 19-9) (07/30/2023 6:57 AM CDT) Carbohydrate Ag 19-9, S 146(H) <35 U/mL 08/02/2023 2:53 PM CDT [facility] Comment: ----ADDITIONAL INFORMATION---- The testing method is an immunoenzymatic assay manufactured by [employer] and performed on the [employer] 800. ? Values obtained with different assay methods or kits may be different and cannot be used interchangeably. ? Test results cannot be interpreted as absolute evidence for the presence or absence of malignant disease. Blood (Blood, Venous) 07/30/2023 6:57 AM CDT 08/02/2023 1:51 PM CDT Na Hernandez M.D., Ph.D. LAB BLOOD A [facility] [address] [address] [facility] [address] [place] [address] documented in this encounter Visit Diagnoses Diagnosis Hypertension Essential Primary- Primary Cholangiocarcinoma (HCC) Stricture Biliary (HCC) documented in this encounter Additional Health Concerns Infection Onset Date Last Indicated Resolved Time Protective Environment 11/07/2022 11/07/2022 documented as of this encounter Care Teams Culinary Specialist Relationship Specialty Start Date End Date Mark Colorado M.D. [address] [place] [address] PCP - General Family Medicine 11/09/22 documented as of this encounter
--- OUTSIDE RECORDS SUMMARY | 2023-11-05 22:14 | XMS_ITS | Encounter Summary ---
Author Organization [facility] Address [address] [place] [address] Care Team Providers Care Mapping Supervisor Name Role Phone Mark Colorado M.D. Primary Care Provider Encounter Details Date Type Department Care Team (Late st Contact Info) Description 07/23/2023 Orders Only Department of Oncology in [place], [place] [address] [place] [phone] Jason Stockton M.D., Ph.D. [address] [place] [phone] Social History Tobacco Use Types Packs/Day Years [...] [facility] live 09/10/2022 Sex [...] PM CDT Clinical Communication Virtual Review in [place], [place] [address] [place] [address] 11/15/2023 6:40 AM CDT Lab Department of Laboratory Medicine and Pathology, [facility] in [address] [phone] Loyda Lennon M.D. [address] [place] [phone] 11/15/2023 8:20 AM CDT Office Visit Department of Oncology in [address] [address] Manjit Velasquez APRN, C.N.P., D.N.P. [address] [place] [phone] 11/15/2023 9:30 AM CDT Comprehensive Visit Department of Palliative Care in [address] [address] Patty Gomez APRN, C.N.P., M.S.N. [address] [place] [phone] 11/15/2023 2:15 PM CDT Infusion Department of Oncology in [address] [address] Loyda Lennon M.D. [address] [place] [phone] 11/22/2023 7:30 AM CDT Lab Department of Oncology in [place], [place] [address] [place] [phone] Loyda Lennon M.D. [address] [place] [phone] 11/22/2023 8:45 AM CDT Infusion Department of Oncology in [place], [place] [address] [place] [phone] Loyda Lennon M.D. [address] [place] [phone] 11/28/2023 3:30 PM CDT Clinical Communication Virtual Review in [place], [place] [address] [place] [address] 11/29/2023 9:00 AM CDT Procedure visit Department of Urology in [place], [place] [address] [place] [phone] Mark Colorado M.D. [facility] [place] [phone] 11/29/2023 11:20 AM CDT Lab Department of Laboratory Medicine and Pathology, [facility], in [place], [place] [address] [place] [phone] Loyda Lennon M.D. [address] [place] [phone] 11/29/2023 11:30 AM CDT Lab Department of Oncology in [place], [place] [address] [place] [phone] Loyda Lennon M.D. [address] [place] [address] 11/29/2023 1:00 PM CDT Infusion Department of Oncology in [place], [place] [address] [place] [phone] Loyda Lennon M.D. [address] [place] [phone] 12/03/2023 1:45 PM CDT Comprehensive Visit Department of Urology in [place], [place] [address] [place] [phone] Mona Egan P.A.-C. [address] [place] [phone] 12/05/2023 1:20 PM CDT Comprehensive Visit Department of Oncology in [place], [place] [address] [place] [phone] Letty Kate M.D. [address] [place] [phone] 12/10/2023 3:00 PM CDT Clinical Communication Virtual Review in [place], [place] [address] [place] [address] 12/10/2023 3:30 PM CDT Procedure visit Department of Urology in [place], [place] [address] [place] [phone] Mark Colorado M.D. [address] [place] [address] [place] [phone] 12/12/2023 3:45 PM CDT Appointment Department of Radiology, [facility], in [place], [place] [address] [place] [phone] Na Hernandez M.D., Ph.D. [address] [place] [phone] 12/13/2023 6:00 AM CDT Lab Department of Laboratory Medicine and Pathology, [facility], in [place], [place] [address] [place] [phone] Loyda Lennon M.D. [address] [place] [phone] 12/13/2023 6:20 AM CDT Lab Department of Infusion Therapy in [place], [place] [address] [place] [phone] Loyda Lennon M.D. [address] [place] [phone] 12/13/2023 11:10 AM CDT Office Visit Department of Oncology in [place], [place] [address] [place] [phone] Na Hernandez M.D., Ph.D. [address] [place] [phone] 12/13/2023 1:00 PM CDT Infusion Department of Oncology in [place], [place] [address] [place] [phone] Loyda Lennon M.D. [address] [place] [address] 12/20/2023 9:20 AM CDT Lab Department of Infusion Therapy in [place], [place] [address] [place] [phone] Loyda Lennon M.D. [address] [place] [phone] 12/20/2023 10:30 AM CDT Infusion Department of Oncology in [place], [place] [address] [place] [phone] Loyda Lennon M.D. [address] [place] [address] 12/25/2023 10:30 AM CDT Appointment Division of Gastroenterology in [place], [place] [address] [place] [phone] Na Hernandez M.D., Ph.D. [address] [place] [phone] 12/27/2023 10:15 AM CDT Lab Department of Oncology in [place], [place] [address] [place] [phone] Loyda Lennon M.D. [address] [place] [phone] 12/27/2023 10:30 AM CDT Lab Department of Laboratory Medicine and Pathology, [address] [phone] Loyda Lennon M.D. [address] [place] [phone] 12/27/2023 11:45 AM CDT Infusion Department of Oncology in [address] [phone] Loyda Lennon M.D. [address] [place] [phone] 01/03/2024 1:00 PM CDT Clinical Communication Virtual Review in [place], [place] 200 [place] [address] 01/10/2024 8:00 AM CDT Lab Department of Infusion Therapy in [address] [address] Loyda Lennon M.D. [address] [place] [phone] 01/10/2024 8:20 AM CDT Lab Department of Laboratory Medicine and Pathology, [facility] in [place], [place] [address] [place] [phone] Loyda Lennon M.D. [address] [place] [address] 01/10/2024 10:30 AM CDT Office Visit Department of Oncology in [place], [place] [address] [place] [phone] Na Hernandez M.D., Ph.D. [address] [place] [phone] 01/10/2024 11:45 AM CDT Infusion Department of Oncology in [place], [place] [address] [place] [phone] Loyda Lennon M.D. [address] [place] [phone] 01/17/2024 8:45 AM CDT Lab Department of Oncology in [place], [place] [address] [place] [phone] Loyda Lennon M.D. [address] [place] [address] 01/17/2024 10:00 AM CDT Infusion Department of Oncology in [place], [place] [address] [place] [phone] Loyda Lennon M.D. [address] [place] [phone] 01/24/2024 8:00 AM CDT Lab Department of Laboratory Medicine and Pathology, [facility], in [place], [place] [address] [place] [address] Loyda Lennon M.D. [address] [place] [phone] 01/24/2024 8:15 AM CDT Lab Department of Oncology in [place], [place] [address] [place] [address] Loyda Lennon M.D. [address] [place] [address] 01/24/2024 9:15 AM CDT Infusion Department of Oncology in [place], [place] [address] [place] [address] Loyda Lennon M.D. [address] [place] [phone] Scheduled Procedures Name Priority Associated Diagnoses Date/Ti me HEPATECTOMY RESECTION LIVER Cholangiocarcinoma (HCC) ULTRASOUND LIVER Cholangiocarcinoma (HCC) RECONSTRUCTION PORTAL VEIN Cholangiocarcinoma (HCC) documented as of this encounter Visit Diagnoses Not on filedocumented in this encounter Additional Health Concerns Infection Onset Date Last Indicated Resolved Time Protective Environment 11/07/2022 11/07/2022 documented as of this encounter Care Teams Mapping Supervisor Relationship Specialty Start Date End Date Mark Colorado M.D. [address] [place] [address] PCP - General Family Medicine 11/09/22 documented as of this encounter
--- OUTSIDE RECORDS SUMMARY | 2023-11-05 22:14 | XMS_ITS | Encounter Summary ---
Author Organization [facility] Address [address] [place] [address] Care Team Providers Care Wafer Polishing Worker Name Role Phone Mark Colorado M.D. Primary Care Provider [phone] Encounter Details Date Type Department Care Team (Latest Contact Info) Description 07/30/2023 Orders Only Department of Oncology in [place], [place] [address] [place] [address] Karen Burger Cholangiocarcinoma (HCC) (Primary Dx); Residential Pest Control Technician Current Drug Therapy, Chemotherapy; Peritoneal Carcinomatosis (HCC) [...] PM CDT Clinical Communication Virtual Review in [place], [place] 200 [place] [address] 11/15/2023 6:40 AM CDT Lab Department of Laboratory Medicine and Pathology, [facility] in [address] [address] Loyda Lennon M.D. [address] [place] [phone] 11/15/2023 8:20 AM CDT Office Visit Department of Oncology in [address] [address] Manjit Velasquez APRN, C.N.P., D.N.P. [address] [place] [phone] 11/15/2023 9:30 AM CDT Comprehensive Visit Department of Palliative Care in [address] [address] Patty Gomez APRN, C.N.P., M.S.N. [address] [place] [address] 11/15/2023 2:15 PM CDT Infusion Department of Oncology in [place], [place] [address] [place] [phone] Loyda Lennon M.D. [address] [place] [phone] 11/22/2023 7:30 AM CDT Lab Department of Oncology in [place], [place] [address] [place] [address] Loyda Lennon M.D. [address] [place] [address] 11/22/2023 8:45 AM CDT Infusion Department of Oncology in [place], [place] [address] [place] [phone] Loyda Lennon M.D. [address] [place] [address] 11/28/2023 3:30 PM CDT Clinical Communication Virtual Review in [place], [place] 200 [place] [address] 11/29/2023 9:00 AM CDT Procedure visit Department of Urology in [place], [place] [address] [place] [phone] Mark Colorado M.D. [address] [place] [phone] 11/29/2023 11:20 AM CDT Lab Department of Laboratory Medicine and Pathology, [facility], in [place], [place] [address] [place] [phone] Loyda Lennon M.D. [address] [place] [phone] 11/29/2023 11:30 AM CDT Lab Department of Oncology in [place], [place] [address] [place] [phone] Loyda Lennon M.D. [address] [place] [phone] 11/29/2023 1:00 PM CDT Infusion Department of Oncology in [place], [place] [address] [place] [phone] Loyda Lennon M.D. [address] [place] [phone] 12/03/2023 1:45 PM CDT Comprehensive Visit Department of Urology in [place], [place] [address] [place] [phone] Mona Egan P.A.-C. [address] [place] [address] 12/05/2023 1:20 PM CDT Comprehensive Visit Department of Oncology in [place], [place] [address] [place] [phone] Letty Kate M.D. [address] [place] [address] 12/10/2023 3:00 PM CDT Clinical Communication Virtual Review in [place], [place] [address] [place] [address] 12/10/2023 3:30 PM CDT Procedure visit Department of Urology in [place], [place] [address] [place] [phone] Mark Colorado M.D. [address] [place] [address] 12/12/2023 3:45 PM CDT Appointment Department of Radiology, [facility], in [place], [place] [address] [place] [phone] Na Hernandez M.D., Ph.D. [address] [place] [address] 12/13/2023 6:00 AM CDT Lab Department of Laboratory Medicine and Pathology, [facility], in [place], [place] [address] [place] [phone] Loyda Lennon M.D. [address] [place] [address] 12/13/2023 6:20 AM CDT Lab Department of Infusion Therapy in [place], [place] [address] [place] [phone] Loyda Lennon M.D. [address] [place] [address] 12/13/2023 11:10 AM CDT Office Visit Department of Oncology in [address] [address] Na Hernandez M.D., Ph.D. [address] [place] [address] 12/13/2023 1:00 PM CDT Infusion Department of Oncology in [address] [address] Loyda Lennon M.D. [address] [place] [phone] 12/20/2023 9:20 AM CDT Lab Department of Infusion Therapy in [address] [address] Loyda Lennon M.D. [address] [place] [address] 12/20/2023 10:30 AM CDT Infusion Department of Oncology in [place], [place] [address] [place] [address] Loyda Lennon M.D. [address] [place] [address] 12/25/2023 10:30 AM CDT Appointment Division of Gastroenterology in [place], [place] [address] [place] [phone] Na Hernandez M.D., Ph.D. [address] [place] [address] 12/27/2023 10:15 AM CDT Lab Department of Oncology in [place], [place] [address] [place] [phone] Loyda Lennon M.D. [address] [place] [address] 12/27/2023 10:30 AM CDT Lab Department of Laboratory Medicine and Pathology, [facility] in [address] [address] Loyda Lennon M.D. [address] [place] [address] 12/27/2023 11:45 AM CDT Infusion Department of Oncology in [address] [address] Loyda Lennon M.D. [address] [place] [phone] 01/03/2024 1:00 PM CDT Clinical Communication Virtual Review in [place], [place] 200 [place] [address] 01/10/2024 8:00 AM CDT Lab Department of Infusion Therapy in [place], [place] [address] [place] [phone] Loyda Lennon M.D. [address] [place] [address] 01/10/2024 8:20 AM CDT Lab Department of Laboratory Medicine and Pathology, [facility] in [place], [place] [address] [place] [phone] Loyda Lennon M.D. [address] [place] [address] 01/10/2024 10:30 AM CDT Office Visit Department of Oncology in [place], [place] [address] [place] [phone] Na Hernandez M.D., Ph.D. [address] [place] [address] 01/10/2024 11:45 AM CDT Infusion Department of Oncology in [place], [place] [address] [place] [phone] Loyda Lennon M.D. [address] [place] [phone] 01/17/2024 8:45 AM CDT Lab Department of Oncology in [place], [place] [address] [place] [address] Loyda Lennon M.D. [address] [place] [address] 01/17/2024 10:00 AM CDT Infusion Department of Oncology in [address] [address] Loyda Lennon M.D. [address] [place] [phone] 01/24/2024 8:00 AM CDT Lab Department of Laboratory Medicine and Pathology, [facility], in [place], [place] [address] [place] [phone] Loyda Lennon M.D. [address] [place] [address] 01/24/2024 8:15 AM CDT Lab Department of Oncology in [place], [place] [address] [place] [address] Loyda Lennon M.D. [address] [place] [address] 01/24/2024 9:15 AM CDT Infusion Department of Oncology in [place], [place] [address] [place] [address] Loyda Lennon M.D. [address] [place] [address] Scheduled Procedures Name Priority Associated Diagnoses Date/Ti me HEPATECTOMY RESECTION LIVER Cholangiocarcinoma (HCC) ULTRASOUND LIVER Cholangiocarcinoma (HCC) RECONSTRUCTION PORTAL VEIN Cholangiocarcinoma (HCC) documented as of this encounter Visit Diagnoses Diagnosis Cholangiocarcinoma (HCC)- Primary Long-Term Current Drug Therapy, Chemotherapy Peritoneal Carcinomatosis (HCC) documented in this encounter Additional Health Concerns Infection Onset Date Last Indicated Resolved Time Protective Environment 11/07/2022 11/07/2022 documented as of this encounter Care Teams Wafer Polishing Worker Relationship Specialty Start Date End Date Mark Colorado M.D. [address] [place] [address] PCP - General Family Medicine 11/09/22 documented as of this encounter
--- OUTSIDE RECORDS SUMMARY | 2023-11-05 22:14 | XMS_ITS | Encounter Summary ---
Author Organization [facility] Address [address] [place] [address] Care Team Providers Care Type Mapper Name Role Phone Mark Colorado M.D. Primary Care Provider [phone] Reason for Visit * Episode Based Medications (Routine) - Authorized Specialty Diagnoses / Procedures Referred By Contac t Referred To Contact Diagnoses Cholangiocarcinoma (HCC) Correction Current Drug Therapy, Chemotherapy Peritoneal Carcinomatosis (HCC) Neutropenia Chemotherapy Induced (HCC) Procedures RI ONDANSETRON HCL INJECTION RI PACLITAXEL INJECTION RI INJECTION, DARINEL ONC Yuko Pennington MPAS, P.A.-C. [address] [place] [address] Rst Onc Cruz [address] [place] [address] Referral ID Status Reason Start Date Expiration Date V isits Requested Visits Authorized [id number] Authorized 03/11/2023 03/31/2024 31 99 Encounter Details Date Type Department Care Team (Latest Contact Info) Description 07/31/2023 1:30 PM CDT Infusion Department of Oncology in [place], [place] [address] [place] [address] Yuko Pennington MPAS P.AHolden-C. [address] [place] [phone] Pure Hypercholesterolemia (Primary Dx); Cholangiocarcinoma (HCC); Correction [...] have a fuller hospital place to live 09/10/2022 Sex and Gender Information Value Date Recorded Sex Assigned at Male 09/10/2022 12:02 PM CDT Gender Identity Male 09/10/2022 12:02 PM CDT Sexual Orientation Straight 09/10/2022 12 :02 PM CDT documented as of this encounter Last Filed Vital Signs Vital Sign Reading Time Taken Comments Blood Pressure 134/63 07/31/2023 1:57 PM CDT Pulse 66 07/31/2023 1:57 PM CDT Temperature 36.6 ??C (97.9 ??F) 07/31/2023 1:57 PM CD T Respiratory Rate 14 07/31/2023 1:57 PM CDT Oxygen Saturation - - Inhaled Oxygen Concentration - - Weight 90.6 kg (199 lb 13.6 oz) 07/31/2023 1:55 PM CDT Height - - Body Mass Index 27.19 07/16/2023 9:00 AM CDT documented in this encounter Plan of Treatment Upcoming Encounters Date Type Department Care Team (Latest Contact Info) Description 11/07/2023 3:15 PM CDT Clinical Communication Virtual Review in [place], [place] [address] [place] [address] 11/15/2023 6:40 AM CDT Lab Department of Laboratory Medicine and Pathology, [facility], in [address] [address] Loyda Lennon M.D. [address] [place] [phone] 11/15/2023 8:20 AM CDT Office Visit Department of Oncology in [address] [address] Manjit Velasquez APRN, C.N.P., D.N.P. [address] [place] [phone] 11/15/2023 9:30 AM CDT Comprehensive Visit Department of Palliative Care in [address] [address] Patty Gomez APRN, C.N.P., M.S.N. [address] [place] [phone] 11/15/2023 2:15 PM CDT Infusion Department of Oncology in [address] [address] Loyda Lennon M.D. [address] [place] [phone] 11/22/2023 7:30 AM CDT Lab Department of Oncology in [address] [address] Loyda Lennon M.D. [address] [place] [phone] 11/22/2023 8:45 AM CDT Infusion Department of Oncology in [address] [address] Loyda Lennon M.D. [address] [place] [phone] 11/28/2023 3:30 PM CDT Clinical Communication Virtual Review in [place], [place] [address] [place] [address] 11/29/2023 9:00 AM CDT Procedure visit Department of Urology in [place], [place] [address] [place] [address] Mark Colorado M.D. [address] [place] [id number] 11/29/2023 11:20 AM CDT Lab Department of Laboratory Medicine and Pathology, [facility] in [place], [place] [address] [place] [address] Loyda Lennon M.D. [address] [place] [phone] 11/29/2023 11:30 AM CDT Lab Department of Oncology in [place], [place] [address] [place] [address] Loyda Lennon M.D. [address] [place] [phone] 11/29/2023 1:00 PM CDT Infusion Department of Oncology in [place], [place] [address] [place] [address] Loyda Lennon M.D. [address] [place] [phone] 12/03/2023 1:45 PM CDT Comprehensive Visit Department of Urology in [place], [place] [address] [place] [phone] Mona Egan, PHoldenAHolden-Sara [address] [place] [address] 12/05/2023 1:20 PM CDT Comprehensive Visit Department of Oncology in [place], [place] [address] [place] [address] Letty Kate M.D. [address] [place] [address] 12/10/2023 3:00 PM CDT Clinical Communication Virtual Review in [place], [place] [address] [place] [address] 12/10/2023 3:30 PM CDT Procedure visit Department of Urology in [place], [place] [address] [place] [phone] Mark Colorado M.D. [address] [place] [id number] 12/12/2023 3:45 PM CDT Appointment Department of Radiology, [facility], in [place], [place] [address] [place] [address] Na Hernandez M.D., Ph.D. [address] [place] [phone] 12/13/2023 6:00 AM CDT Lab Department of Laboratory Medicine and Pathology, [facility], in [place], [place] [address] [place] [phone] Loyda Lennon M.D. [address] [place] [address] 12/13/2023 6:20 AM CDT Lab Department of Infusion Therapy in [place], [place] [address] [place] [address] Loyda Lennon M.D. [address] [place] [phone] 12/13/2023 11:10 AM CDT Office Visit Department of Oncology in [place], [place] [address] [place] [address] Na Hernandez M.D., Ph.D. [address] [place] [phone] 12/13/2023 1:00 PM CDT Infusion Department of Oncology in [place], [place] [address] [place] [phone] Loyda Lennon M.D. [address] [place] [phone] 12/20/2023 9:20 AM CDT Lab Department of Infusion Therapy in [address] [address] Loyda Lennon M.D. [address] [place] [phone] 12/20/2023 10:30 AM CDT Infusion Department of Oncology in [place], [place] [address] [place] [phone] Loyda Lennon M.D. [address] [place] [phone] 12/25/2023 10:30 AM CDT Appointment Division of Gastroenterology in [address] [address] Na Hernandez M.D., Ph.D. [address] [place] [phone] 12/27/2023 10:15 AM CDT Lab Department of Oncology in [address] [address] Loyda Lennon M.D. [address] [place] [phone] 12/27/2023 10:30 AM CDT Lab Department of Laboratory Medicine and Pathology, [facility] in [place], [place] [address] [place] [phone] Loyda Lennon M.D. [address] [place] [address] 12/27/2023 11:45 AM CDT Infusion Department of Oncology in [place], [place] [address] [place] [phone] Loyda Lennon M.D. [address] [place] [phone] 01/03/2024 1:00 PM CDT Clinical Communication Virtual Review in [place], [place] [address] [place] [address] 01/10/2024 8:00 AM CDT Lab Department of Infusion Therapy in [place], [place] [address] [place] [phone] Loyda Lennon M.D. [address] [place] [phone] 01/10/2024 8:20 AM CDT Lab Department of Laboratory Medicine and Pathology, [facility], in [place], [place] [address] [place] [phone] Loyda Lennon M.D. [address] [place] [phone] 01/10/2024 10:30 AM CDT Office Visit Department of Oncology in [address] [address] Na Hernandez M.D., Ph.D. [address] [place] [phone] 01/10/2024 11:45 AM CDT Infusion Department of Oncology in [place], [place] [address] [place] [phone] Loyda Lennon M.D. [address] [place] [address] 01/17/2024 8:45 AM CDT Lab Department of Oncology in [place], [place] [address] [place] [phone] Loyda Lennon M.D. [address] [place] [address] 01/17/2024 10:00 AM CDT Infusion Department of Oncology in [place], [place] [address] [place] [address] Loyda Lennon M.D. [address] [place] [address] 01/24/2024 8:00 AM CDT Lab Department of Laboratory Medicine and Pathology, [facility], in [place], [place] [address] [place] [address] Loyda Lennon M.D. [address] [place] [address] 01/24/2024 8:15 AM CDT Lab Department of Oncology in [place], [place] [address] [place] [address] Loyda Lennon M.D. [address] [place] [address] 01/24/2024 9:15 AM CDT Infusion Department of Oncology in [place], [place] [address] [place] [address] Lodya Lennon M.D. [address] [place] [phone] Scheduled Procedures Name Priority Associated Diagnoses Date/Ti me HEPATECTOMY RESECTION LIVER Cholangiocarcinoma (HCC) ULTRASOUND LIVER Cholangiocarcinoma (HCC) RECONSTRUCTION PORTAL VEIN Cholangiocarcinoma (HCC) documented as of this encounter Visit Diagnoses Diagnosis Pure Hypercholesterolemia- Primary Cholangiocarcinoma (HCC) Electronic Components Assembler Current Drug Therapy, Chemotherapy Peritoneal Carcinomatosis (HCC) documented in this encounter Administered Medications Inactive Administered Medications - up to 3 most recent administrations Medication Order MAR Action Action Date Dose Rate Site heparin flush 500 Units 500 Units, intra-catheter, As needed, line care, Starting on Sat07/31/23 at 1342, When IVAD accessed and not infusing: When no infusion to maintain patency flush every 7 days following NaCL flush. 5 mL (500 units) of Heparin 100 units/mL to each port/lumen. When IVAD not accessed or infusing: When no infusion to maintain patency flush every 28 days following NaCL flush. 5 mL (500 units) of Heparin 100 units/mL to each port/lumen. Given 07/31/2023 4:12 PM CDT 500 Units Research IRB [id number] 900 mg in NaCl 0.9% (non-PVC) 250 mL IVPB 900 mg (10 mg/kg ? 90 kg Treatment plan Measured weight), intravenous, at 250 mL/hr, Administer over 1 Hours, Once, On Sat07/31/23 at 1445, For 1 dose, May administer 15 minutes [...] bag and tubing are non-PVC. New Bag 07/31/2023 3:06 PM CDT 900 mg 250 mL/hr sodium chloride 0.9 % injection 10-20 mL 10-20 mL, intra-catheter, As needed, line care, Starting on Sat07/31/23 at 1342, When IVAD accessed and infusing: Flush prior to and following infusion, between multiple consecutive infusions. 10 mL to each port/lumen. Given 07/31/2023 4:12 PM CDT 10 mL documented in this encounter Additional Health Concerns Infection Onset Date Last Indicated Resolved Time Protective Environment 11/07/2022 11/07/2022 documented as of this encounter Care Teams Type Mapper Relationship Specialty Start Date End Date Mark Colorado M.D. [address] [place] [id number] PCP - General Family Medicine 11/09/22 documented as of this encounter
--- OUTSIDE RECORDS SUMMARY | 2023-11-05 22:14 | XMS_ITS | Encounter Summary ---
Author Organization [facility] Address [address] [place] [address] Care Team Providers Care Information Systems Auditor Name Role Phone Mark Colorado M.D. Primary Care Provider [phone] Encounter Details Date Type Department Care Team (Latest Contact Info) Description 07/23/2023 Orders Only Department of Oncology in [place], [place] [address] [place] [address] Karen Burger Cholangiocarcinoma (HCC) (Primary Dx); Web Marketing Coordinator Current Drug Therapy, Chemotherapy; Peritoneal Carcinomatosis (HCC) [...] PM CDT Clinical Communication Virtual Review in [place], [place] [address] [place] [address] 11/15/2023 6:40 AM CDT Lab Department of Laboratory Medicine and Pathology, [facility] in [address] [phone] Loyda Lennon M.D. [address] [place] [phone] 11/15/2023 8:20 AM CDT Office Visit Department of Oncology in [address] [address] Manjit Velasquez APRN, C.N.P., D.N.P. [address] [place] [phone] 11/15/2023 9:30 AM CDT Comprehensive Visit Department of Palliative Care in [address] [address] Patty Gomez APRN, C.N.P., M.S.N. [address] [place] [address] 11/15/2023 2:15 PM CDT Infusion Department of Oncology in [place], [place] [address] [place] [phone] Lodya Lennon M.D. [address] [place] [phone] 11/22/2023 7:30 AM CDT Lab Department of Oncology in [place], [place] [address] [place] [address] Loyda Lennon M.D. [address] [place] [address] 11/22/2023 8:45 AM CDT Infusion Department of Oncology in [place], [place] [address] [place] [address] Loyda Lennon M.D. [address] [place] [phone] 11/28/2023 3:30 PM CDT Clinical Communication Virtual Review in [place], [place] [address] [place] [address] 11/29/2023 9:00 AM CDT Procedure visit Department of Urology in [place], [place] [address] [place] [phone] Mark Colorado M.D. [address] [place] [phone] 11/29/2023 11:20 AM CDT Lab Department of Laboratory Medicine and Pathology, [facility], in [place], [place] [address] [place] [phone] Loyda Lennon M.D. [address] [place] [address] 11/29/2023 11:30 AM CDT Lab Department of Oncology in [place], [place] [address] [place] [address] Loyda Lennon M.D. [address] [place] [address] 11/29/2023 1:00 PM CDT Infusion Department of Oncology in [place], [place] [address] [place] [phone] Loyda Lennon M.D. [address] [place] [address] 12/03/2023 1:45 PM CDT Comprehensive Visit Department of Urology in [place], [place] [address] [place] [phone] Mona Egan P.A.-C. [address] [place] [phone] 12/05/2023 1:20 PM CDT Comprehensive Visit Department of Oncology in [place], [place] [address] [place] [phone] Letty Kate M.D. [address] [place] [phone] 12/10/2023 3:00 PM CDT Clinical Communication Virtual Review in [place], [place] [address] [place] [address] 12/10/2023 3:30 PM CDT Procedure visit Department of Urology in [place], [place] [address] [place] [address] Mark Colorado M.D. [address] [place] [address] 12/12/2023 3:45 PM CDT Appointment Department of Radiology, [facility], in [place], [place] [address] [place] [phone] Na Hernandez M.D., Ph.D. [address] [place] [address] 12/13/2023 6:00 AM CDT Lab Department of Laboratory Medicine and Pathology, [facility], in [place], [place] [address] [place] [address] Loyda Lennon M.D. [address] [place] [address] 12/13/2023 6:20 AM CDT Lab Department of Infusion Therapy in [place], [place] [address] [place] [phone] Loyda Lennon M.D. [address] [place] [phone] 12/13/2023 11:10 AM CDT Office Visit Department of Oncology in [address] [address] Na Hernandez M.D., Ph.D. [address] [place] [address] 12/13/2023 1:00 PM CDT Infusion Department of Oncology in [address] [address] Loyda Lennon M.D. [address] [place] [address] 12/20/2023 9:20 AM CDT Lab Department of Infusion Therapy in [address] [address] Loyda Lennon M.D. [address] [place] [address] 12/20/2023 10:30 AM CDT Infusion Department of Oncology in [place], [place] [address] [place] [address] Loyda Lennon M.D. [address] [place] [address] 12/25/2023 10:30 AM CDT Appointment Division of Gastroenterology in [place], [place] [address] [place] [phone] Na Hernandez M.D., Ph.D. [address] [place] [address] 12/27/2023 10:15 AM CDT Lab Department of Oncology in [place], [place] [address] [place] [phone] Loyda Lennon M.D. [address] [place] [phone] 12/27/2023 10:30 AM CDT Lab Department of Laboratory Medicine and Pathology, [facility] in [address] [address] Loyda Lennon M.D. [address] [place] [address] 12/27/2023 11:45 AM CDT Infusion Department of Oncology in [address] [address] Loyda Lennon M.D. [address] [place] [phone] 01/03/2024 1:00 PM CDT Clinical Communication Virtual Review in [place], [place] [address] [place] [address] 01/10/2024 8:00 AM CDT Lab Department of Infusion Therapy in [place], [place] [address] [place] [address] Loyda Lennon M.D. [address] [place] [phone] 01/10/2024 8:20 AM CDT Lab Department of Laboratory Medicine and Pathology, [facility] in [place], [place] [address] [place] [address] Loyda Lennon M.D. [address] [place] [address] 01/10/2024 10:30 AM CDT Office Visit Department of Oncology in [place], [place] [address] [place] [phone] Na Hernandez M.D., Ph.D. [address] [place] [phone] 01/10/2024 11:45 AM CDT Infusion Department of Oncology in [place], [place] [address] [place] [phone] Loyda Lennon M.D. [address] [place] [address] 01/17/2024 8:45 AM CDT Lab Department of Oncology in [place], [place] [address] [place] [address] Loyda Lennon M.D. [address] [place] [address] 01/17/2024 10:00 AM CDT Infusion Department of Oncology in [address] [address] Loyda Lennon M.D. [address] [place] [address] 01/24/2024 8:00 AM CDT Lab Department of Laboratory Medicine and Pathology, [facility], in [place], [place] [address] [place] [phone] Loyda Lennon M.D. [address] [place] [phone] 01/24/2024 8:15 AM CDT Lab Department of Oncology in [place], [place] [address] [place] [address] Loyda Lennon M.D. [address] [place] [address] 01/24/2024 9:15 AM CDT Infusion Department of Oncology in [place], [place] [address] [place] [address] Loyda Lennon M.D. [address] [place] [address] Scheduled Procedures Name Priority Associated Diagnoses Date/Ti [...] documented as of this encounter Care Teams Information Systems Auditor Relationship Specialty Start Date End Date Mark Colorado M.D. [address] [place] [address] PCP - General Family Medicine 11/09/22 documented as of this encounter
--- OUTSIDE RECORDS SUMMARY | 2023-11-05 22:14 | XMS_ITS | Encounter Summary ---
Author Organization [facility] Address [address] [place] [address] Care Team Providers Care Kier Tender Name Role Phone Mark Colorado M.D. Primary Care Provider [phone] Encounter Details Date Type Department Care Team (Latest Contact Info) Description 07/29/2023 8:00 AM CDT Clinical Communication Virtual Review in [place], [place] [address] [place] [address] Social History Tobacco Use Types Packs/Day Years [...] your living situation today? I have a [facility] place to live 09/10/2022 Sex and Gender Information Value Date Recorded Sex Assigned at Male 09/10/2022 12:02 PM CDT Gender Identity Male 09/10/2022 12:02 PM CDT Sexual Orientation Straight 09/10/2022 12 :02 PM CDT documented as of this encounter Plan of Treatment Upcoming Encounters Date Type Department Care Team (Latest Contact Info) Description 11/07/2023 3:15 PM CDT Clinical Communication Virtual Review in [address] [address] 11/15/2023 6:40 AM CDT Lab Department of Laboratory Medicine and Pathology, [facility], in [place], [place] [address] [place] [address] Loyda Lennon M.D. [address] [place] [phone] 11/15/2023 8:20 AM CDT Office Visit Department of Oncology in [address] [address] Manjit Vealsquez APRN, C.N.P., D.N.P. [address] [place] [phone] 11/15/2023 9:30 AM CDT Comprehensive Visit Department of Palliative Care in [address] [address] Patty Gomez APRN, C.N.P., M.S.N. [address] [place] [address] 11/15/2023 2:15 PM CDT Infusion Department of Oncology in [address] [address] Loyda Lennon M.D. [address] [place] [phone] 11/22/2023 7:30 AM CDT Lab Department of Oncology in [address] [place] [address] Loyda Lennon M.D. [address] [place] [phone] 11/22/2023 8:45 AM CDT Infusion Department of Oncology in [place], [place] [address] [place] [address] Loyda Lennon M.D. [address] [place] [address] 11/28/2023 3:30 PM CDT Clinical Communication Virtual Review in [place], [place] 200 [place] [address] 11/29/2023 9:00 AM CDT Procedure visit Department of Urology in [place], [place] [address] [place] [address] Mark Colorado M.D. [address] [place] [address] [place] [address] 11/29/2023 11:20 AM CDT Lab Department of Laboratory Medicine and Pathology, [facility], in [place], [place] [address] [place] [address] Loyda Lennon M.D. [address] [place] [address] 11/29/2023 11:30 AM CDT Lab Department of Oncology in [place], [place] [address] [place] [address] Loyda Lennon M.D. [address] [place] [address] 11/29/2023 1:00 PM CDT Infusion Department of Oncology in [place], [place] [address] [place] [address] Loyda Lennon M.D. [address] [place] [address] 12/03/2023 1:45 PM CDT Comprehensive Visit Department of Urology in [place], [place] [address] [place] [address] Mona Egan P.A.-C. [address] [place] [address] 12/05/2023 1:20 PM CDT Comprehensive Visit Department of Oncology in [place], [place] [address] [place] [address] Letty Kate M.D. [address] [place] [address] 12/10/2023 3:00 PM CDT Clinical Communication Virtual Review in [place], [place] 200 [place] [address] 12/10/2023 3:30 PM CDT Procedure visit Department of Urology in [place], [place] [address] [place] [address] Mark Colorado M.D. [address] [place] [address] [place] [address] 12/12/2023 3:45 PM CDT Appointment Department of Radiology, [facility], in [place], [place] [address] [place] [address] Na Hernandez M.D., Ph.D. [address] [place] [address] 12/13/2023 6:00 AM CDT Lab Department of Laboratory Medicine and Pathology, [facility], in [place], [place] [address] [place] [address] Loyda Lennon M.D. [address] [place] [address] 12/13/2023 6:20 AM CDT Lab Department of Infusion Therapy in [place], [place] [address] [place] [address] Loyda Lennon M.D. [address] [place] [address] 12/13/2023 11:10 AM CDT Office Visit Department of Oncology in [place], [place] [address] [place] [address] Na Hernandez M.D., Ph.D. [address] [place] [address] 12/13/2023 1:00 PM CDT Infusion Department of Oncology in [place], [place] [address] [place] [address] Loyda Lennon M.D. [address] [place] [address] 12/20/2023 9:20 AM CDT Lab Department of Infusion Therapy in [place], [place] [address] [place] [address] Loyda Lennon M.D. [address] [place] [address] 12/20/2023 10:30 AM CDT Infusion Department of Oncology in [place], [place] [address] [place] [address] Loyda Lennon M.D. [address] [place] [address] 12/25/2023 10:30 AM CDT Appointment Division of Gastroenterology in [place], [place] [address] [place] [phone] Na Hernandez M.D., Ph.D. [address] [place] [address] 12/27/2023 10:15 AM CDT Lab Department of Oncology in [place], [place] [address] [place] [address] Loyda Lennon M.D. [address] [place] [address] 12/27/2023 10:30 AM CDT Lab Department of Laboratory Medicine and Pathology, [facility] in [place], [place] [address] [place] [address] Loyda Lennon M.D. [address] [place] [address] 12/27/2023 11:45 AM CDT Infusion Department of Oncology in [place], [place] [address] [place] [address] Loyda Lennon M.D. [address] [place] [address] 01/03/2024 1:00 PM CDT Clinical Communication Virtual Review in [place], [place] 200 [place] [address] 01/10/2024 8:00 AM CDT Lab Department of Infusion Therapy in [place], [place] [address] [place] [address] Loyda Lennon M.D. [address] [place] [address] 01/10/2024 8:20 AM CDT Lab Department of Laboratory Medicine and Pathology, [facility] in [place], [place] [address] [place] [address] Loyda Lennon M.D. [address] [place] [phone] 01/10/2024 10:30 AM CDT Office Visit Department of Oncology in [place], [place] [address] [place] [phone] Na Hernandez M.D., Ph.D. [address] [place] [address] 01/10/2024 11:45 AM CDT Infusion Department of Oncology in [place], [place] [address] [place] [address] Loyda Lennon M.D. [address] [place] [address] 01/17/2024 8:45 AM CDT Lab Department of Oncology in [place], [place] [address] [place] [address] Loyda Lennon M.D. [address] [place] [address] 01/17/2024 10:00 AM CDT Infusion Department of Oncology in [place], [place] [address] [place] [address] Loyda Lennon M.D. [address] [place] [address] 01/24/2024 8:00 AM CDT Lab Department of Laboratory Medicine and Pathology, [facility], in [place], [place] [address] [place] [address] Loyda Lennon M.D. [address] [place] [address] 01/24/2024 8:15 AM CDT Lab Department of Oncology in [place], [place] [address] [place] [phone] Loyda Lennon M.D. [address] [place] [address] 01/24/2024 9:15 AM CDT Infusion Department of Oncology in [place], [place] [address] [place] [address] Loyda Lennon M.D. 200 [place] [phone] Scheduled Procedures Name Priority Associated Diagnoses Date/Ti me HEPATECTOMY RESECTION LIVER Cholangiocarcinoma (HCC) ULTRASOUND LIVER Cholangiocarcinoma (HCC) RECONSTRUCTION PORTAL VEIN Cholangiocarcinoma (HCC) documented as of this encounter Visit Diagnoses Not on filedocumented in this encounter Additional Health Concerns Infection Onset Date Last Indicated Resolved Time Protective Environment 11/07/2022 11/07/2022 documented as of this encounter Care Teams Kier Tender Relationship Specialty Start Date End Date Mark Colorado M.D. [address] [place] [address] PCP - General Family Medicine 11/09/22 documented as of this encounter
--- OUTSIDE RECORDS SUMMARY | 2023-11-05 22:14 | XMS_ITS | Encounter Summary ---
Author Organization [facility] Address [address] [place] [address] Care Team Providers Care Boat Deckhand Name Role Phone Mark Colorado M.D. Primary Care Provider [phone] Encounter Details Date Type Department Care Team (Late st Contact Info) Description 07/29/2023 Orders Only Department of Oncology in [place], [place] [address] [place] [address] Karen Burger Social History Tobacco Use Types [...] PM CDT Clinical Communication Virtual Review in [place], [place] 200 [place] [address] 11/15/2023 6:40 AM CDT Lab Department of Laboratory Medicine and Pathology, [facility] in [address] [address] Loyda Lennon M.D. [address] [place] [address] 11/15/2023 8:20 AM CDT Office Visit Department of Oncology in [address] [address] Manjit Velasquez APRN, C.N.P., D.N.P. [address] [place] [address] 11/15/2023 9:30 AM CDT Comprehensive Visit Department of Palliative Care in [address] [address] Patty Gomez APRN, C.N.P., M.S.N. [address] [place] [address] 11/15/2023 2:15 PM CDT Infusion Department of Oncology in [address] [address] Loyda Lennon M.D. [address] [place] [address] 11/22/2023 7:30 AM CDT Lab Department of Oncology in [place], [place] [address] [place] [address] Loyda Lennon M.D. [address] [place] [address] 11/22/2023 8:45 AM CDT Infusion Department of Oncology in [place], [place] [address] [place] [address] Loyda Lennon M.D. [address] [place] [address] 11/28/2023 3:30 PM CDT Clinical Communication Virtual Review in [place], [place] 200 [place] [address] 11/29/2023 9:00 AM CDT Procedure visit Department of Urology in [place], [place] [address] [place] [address] Mark Colorado M.D. [address] [place] [address] 11/29/2023 11:20 AM CDT Lab Department of Laboratory Medicine and Pathology, [facility], in [address] [address] Loyda Lennon M.D. [address] [place] [address] 11/29/2023 11:30 AM CDT Lab Department of Oncology in [place], [place] [address] [place] [address] Loyda Lennon M.D. [address] [place] [address] 11/29/2023 1:00 PM CDT Infusion Department of Oncology in [place], [place] [address] [place] [phone] Loyda Lennon M.D. [address] [place] [address] 12/03/2023 1:45 PM CDT Comprehensive Visit Department of Urology in [place], [place] [address] [place] [phone] Mona Egan P.A.-C. [address] [place] [address] 12/05/2023 1:20 PM CDT Comprehensive Visit Department of Oncology in [place], [place] [address] [place] [address] Letty Kate M.D. [address] [place] [address] 12/10/2023 3:00 PM CDT Clinical Communication Virtual Review in [place], [place] 200 [place] [address] 12/10/2023 3:30 PM CDT Procedure visit Department of Urology in [place], [place] [address] [place] [address] Mark Colorado M.D. [facility] [place] [address] 12/12/2023 3:45 PM CDT Appointment Department of Radiology, [facility], in [place], [place] [address] [place] [address] Na Hernandez M.D., Ph.D. [address] [place] [address] 12/13/2023 6:00 AM CDT Lab Department of Laboratory Medicine and Pathology, [facility], in [place], [place] [address] [place] [address] Loyda Lennon M.D. [address] [place] [address] 12/13/2023 6:20 AM CDT Lab Department of Infusion Therapy in [place], [place] [address] [place] [address] Loyda Lennon M.D. [address] [place] [address] 12/13/2023 11:10 AM CDT Office Visit Department of Oncology in [place], [place] [address] [place] [phone] Na Hernandez M.D., Ph.D. [address] [place] [phone] 12/13/2023 1:00 PM CDT Infusion Department of Oncology in [place], [place] [address] [place] [address] Loyda Lennon M.D. [address] [place] [address] 12/20/2023 9:20 AM CDT Lab Department of Infusion Therapy in [address] [address] Loyda Lennon M.D. [address] [place] [address] 12/20/2023 10:30 AM CDT Infusion Department of Oncology in [address] [address] Loyda Lennon M.D. [address] [place] [address] 12/25/2023 10:30 AM CDT Appointment Division of Gastroenterology in [address] [address] Na Hernandez M.D., Ph.D. [address] [place] [address] 12/27/2023 10:15 AM CDT Lab Department of Oncology in [place], [place] [address] [place] [address] Loyda Lennon M.D. [address] [place] [address] 12/27/2023 10:30 AM CDT Lab Department of Laboratory Medicine and Pathology, [facility] in [place], [place] [address] [place] [address] Loyda Lennon M.D. [address] [place] [address] 12/27/2023 11:45 AM CDT Infusion Department of Oncology in [place], [place] [address] [place] [address] Loyda Lennon M.D. [address] [place] [address] 01/03/2024 1:00 PM CDT Clinical Communication Virtual Review in [address] [address] 01/10/2024 8:00 AM CDT Lab Department of Infusion Therapy in [address] [address] Loyda Lennon M.D. [address] [place] [address] 01/10/2024 8:20 AM CDT Lab Department of Laboratory Medicine and Pathology, [facility] in [place], [place] [address] [place] [address] Loyda Lennon M.D. [address] [place] [address] 01/10/2024 10:30 AM CDT Office Visit Department of Oncology in [place], [place] [address] [place] [address] Na Hernandez M.D., Ph.D. [address] [place] [address] 01/10/2024 11:45 AM CDT Infusion Department of Oncology in [place], [place] [address] [place] [address] Loyda Lennon M.D. [address] [place] [address] 01/17/2024 8:45 AM CDT Lab Department of Oncology in [place], [place] [address] [place] [address] Loyda Lennon M.D. [address] [place] [address] 01/17/2024 10:00 AM CDT Infusion Department of Oncology in [address] [address] Loyda Lennon M.D. [address] [place] [address] 01/24/2024 8:00 AM CDT Lab Department of Laboratory Medicine and Pathology, [facility], in [place], [place] [address] [place] [address] Loyda Lennon M.D. [address] [place] [address] 01/24/2024 8:15 AM CDT Lab Department of Oncology in [place], [place] [address] [place] [address] Loyda Lennon M.D. [address] [place] [address] 01/24/2024 9:15 AM CDT Infusion Department of Oncology in [place], [place] [address] [place] [address] Loyda Lennon M.D. [address] [place] [address] Scheduled Procedures Name Priority Associated Diagnoses Date/Ti me HEPATECTOMY RESECTION LIVER Cholangiocarcinoma (HCC) ULTRASOUND LIVER Cholangiocarcinoma (HCC) RECONSTRUCTION PORTAL VEIN Cholangiocarcinoma (HCC) documented as of this encounter Visit Diagnoses Not on filedocumented in this encounter Additional Health Concerns Infection Onset Date Last Indicated Resolved Time Protective Environment 11/07/2022 11/07/2022 documented as of this encounter Care Teams Boat Deckhand Relationship Specialty Start Date End Date Mark Colorado M.D. [address] [place] [address] PCP - General Family Medicine 11/09/22 documented as of this encounter
--- OUTSIDE RECORDS SUMMARY | 2023-11-05 22:14 | XMS_ITS | Encounter Summary ---
Author Organization [facility] Address [address] [place] [address] Care Team Providers Care Marketing Account Executive Name Role Phone Mark Colorado M.D. Primary Care Provider [phone] Reason for Visit * Episode Based Medications (Routine) - Authorized Specialty Diagnoses / Procedures Referred By Contac t Referred To Contact Diagnoses Cholangiocarcinoma (HCC) City Constable Current Drug Therapy, Chemotherapy Peritoneal Carcinomatosis (HCC) Neutropenia Chemotherapy Induced (HCC) Procedures VA ONDANSETRON HCL INJECTION VA PACLITAXEL INJECTION VA INJECTION, DARINEL ONC Yuko Pennington MPAS, P.A.-C. [address] [place] [address] Rst Onc Cruz [address] [place] [address] Referral ID Status Reason Start Date Expiration Date V isits Requested Visits Authorized [id number] Authorized 03/11/2023 03/31/2024 31 99 Encounter Details Date Type Department Care Team (Late st Contact Info) Description 07/30/2023 7:00 AM CDT Lab Department of Infusion Therapy in [place], [place] [address] [place] [address] Yuko Pennington MPAS, P.A.-C. [address] [place] [phone] Pure Hypercholesterolemia (Primary Dx); Cholangiocarcinoma (HCC) Social [...] your living situation today? [facility] 09/10/2022 Sex and Gender Information Value Date Recorded Sex Assigned at Male 09/10/2022 12:02 PM CDT Gender Identity Male 09/10/2022 12:02 PM CDT Sexual Orientation Straight 09/10/2022 12 :02 PM CDT documented as of this encounter Plan of Treatment Upcoming Encounters Date Type Department Care Team (Latest Contact Info) Description 11/07/2023 3:15 PM CDT Clinical Communication Virtual Review in [place], [place] 200 [place] [address] 11/15/2023 6:40 AM CDT Lab Department of Laboratory Medicine and Pathology, [facility], in [place], [place] [address] [place] [phone] Loyda Lennon M.D. [address] [place] [phone] 11/15/2023 8:20 AM CDT Office Visit Department of Oncology in [place], [place] [address] [place] [phone] Manjit Velasquez, KAYLEE, C.N.PHolden, D.N.P. [address] [place] [phone] 11/15/2023 9:30 AM CDT Comprehensive Visit Department of Palliative Care in [place], [place] [address] [place] [phone] Patty Gomez APRN, C.N.P., M.S.N. [address] [place] [phone] 11/15/2023 2:15 PM CDT Infusion Department of Oncology in [place], [place] [address] [place] [phone] Loyda Lennon M.D. [address] [place] [phone] 11/22/2023 7:30 AM CDT Lab Department of Oncology in [place], [place] [address] [place] [phone] Loyda Lennon M.D. [address] [place] [phone] 11/22/2023 8:45 AM CDT Infusion Department of Oncology in [address] [phone] Loyda Lennon M.D. [address] [place] [phone] 11/28/2023 3:30 PM CDT Clinical Communication Virtual Review in [place], [place] [address] [place] [address] 11/29/2023 9:00 AM CDT Procedure visit Department of Urology in [place], [place] [address] [place] [phone] Mark Colorado M.D. [facility] [place] [address] [place] [phone] 11/29/2023 11:20 AM CDT Lab Department of Laboratory Medicine and Pathology, [facility], in [place], [place] [address] [place] [phone] Loyda Lennon M.D. [address] [place] [phone] 11/29/2023 11:30 AM CDT Lab Department of Oncology in [place], [place] [address] [place] [phone] Loyda Lennon M.D. [address] [place] [phone] 11/29/2023 1:00 PM CDT Infusion Department of Oncology in [place], [place] [address] [place] [phone] Loyda Lennon M.D. [address] [place] [phone] 12/03/2023 1:45 PM CDT Comprehensive Visit Department of Urology in [address] [phone] Mona Egan, PHoldenAHolden-Sara [address] [place] [phone] 12/05/2023 1:20 PM CDT Comprehensive Visit Department of Oncology in [address] [phone] Letty Kate M.D. [address] [place] [phone] 12/10/2023 3:00 PM CDT Clinical Communication Virtual Review in [place], [place] [address] [place] [address] 12/10/2023 3:30 PM CDT Procedure visit Department of Urology in [place], [place] [address] [place] [phone] Mark Colorado M.D. [address] [place] [address] [place] [address] 12/12/2023 3:45 PM CDT Appointment Department of Radiology, [facility], in [place], [place] [address] [place] [phone] Na Hernandez M.D., Ph.D. [address] [place] [phone] 12/13/2023 6:00 AM CDT Lab Department of Laboratory Medicine and Pathology, [facility] in [place], [place] [address] [place] [phone] Loyda Lennon M.D. [address] [place] [phone] 12/13/2023 6:20 AM CDT Lab Department of Infusion Therapy in [place], [place] [address] [place] [phone] Loyda Lennon M.D. [address] [place] [phone] 12/13/2023 11:10 AM CDT Office Visit Department of Oncology in [place], [place] [address] [place] [phone] Na Hernandez M.D., Ph.D. [address] [place] [phone] 12/13/2023 1:00 PM CDT Infusion Department of Oncology in [place], [place] [address] [place] [phone] Loyda Lennon M.D. [address] [place] [phone] 12/20/2023 9:20 AM CDT Lab Department of Infusion Therapy in [place], [place] [address] [place] [phone] Loyda Lennon M.D. [address] [place] [phone] 12/20/2023 10:30 AM CDT Infusion Department of Oncology in [place], [place] [address] [place] [phone] Loyda Lennon M.D. [address] [place] [phone] 12/25/2023 10:30 AM CDT Appointment Division of Gastroenterology in [place], [place] [address] [place] [phone] Na Hernandez M.D., Ph.D. [address] [place] [phone] 12/27/2023 10:15 AM CDT Lab Department of Oncology in [place], [place] [address] [place] [phone] Loyda Lennon M.D. [address] [place] [phone] 12/27/2023 10:30 AM CDT Lab Department of Laboratory Medicine and Pathology, [facility], in [place], [place] [address] [place] [phone] Loyda Lennon M.D. [address] [place] [phone] 12/27/2023 11:45 AM CDT Infusion Department of Oncology in [place], [place] [address] [place] [phone] Loyda Lennon M.D. [address] [place] [phone] 01/03/2024 1:00 PM CDT Clinical Communication Virtual Review in [place], [place] [address] [place] [address] 01/10/2024 8:00 AM CDT Lab Department of Infusion Therapy in [address] [phone] Loyda Lennon M.D. [address] [place] [phone] 01/10/2024 8:20 AM CDT Lab Department of Laboratory Medicine and Pathology, [facility] in [address] [phone] Loyda Lennon M.D. [address] [place] [phone] 01/10/2024 10:30 AM CDT Office Visit Department of Oncology in [address] [phone] Na Hernandez M.D., Ph.D. [address] [place] [phone] 01/10/2024 11:45 AM CDT Infusion Department of Oncology in [address] [phone] Loyda Lennon M.D. [address] [place] [phone] 01/17/2024 8:45 AM CDT Lab Department of Oncology in [address] [phone] Loyda Lennon M.D. [address] [place] [phone] 01/17/2024 10:00 AM CDT Infusion Department of Oncology in [place], [place] [address] [place] [phone] Loyda Lennon M.D. [address] [place] [phone] 01/24/2024 8:00 AM CDT Lab Department of Laboratory Medicine and Pathology, [facility] in [place], [place] [address] [place] [phone] Loyda Lennon M.D. [address] [place] [phone] 01/24/2024 8:15 AM CDT Lab Department of Oncology in [place], [place] [address] [place] [phone] Loyda Lennon M.D. [address] [place] [phone] 01/24/2024 9:15 AM CDT Infusion Department of Oncology in [place], [place] [address] [place] [phone] Loyda Lennon M.D. [address] [place] [phone] Scheduled Procedures Name Priority Associated Diagnoses Date/Ti me HEPATECTOMY RESECTION LIVER Cholangiocarcinoma (HCC) ULTRASOUND LIVER Cholangiocarcinoma (HCC) RECONSTRUCTION PORTAL VEIN Cholangiocarcinoma (HCC) documented as of this encounter Procedures Procedure Name Priority Date/Time Associated Diagnosis Comments TROPONIN I, HIGH SENSITIVITY, P Routine 07/30/2023 7:04 AM CDT Cholangiocarcinoma (HCC) NT-PRO B-TYPE NATRIURETIC PEPTIDE (BNP), S Routine 07/30/2023 7:04 AM CDT Cholangiocarcinoma (HCC) CBC WITH DIFFERENTIAL, B Routine 07/30/2023 7:04 AM CDT Cholangiocarcinoma (HCC) URIC ACID, S/P Routine 07/30/2023 7:04 AM CDT Cholangiocarcinoma (HCC) PHOSPHORUS (INORGANIC), S Routine 07/30/2023 7:04 AM CDT Cholangiocarcinoma (HCC) MAGNESIUM, S Routine 07/30/2023 7:04 AM CDT Cholangiocarcinoma (HCC) LIPASE, S/P Routine 07/30/2023 7:04 AM CDT Cholangiocarcinoma (HCC) LACTATE DEHYDROGENASE (LD), S Routine 07/30/2023 7:04 AM CDT Cholangiocarcinoma (HCC) AMYLASE, TOT, S Routine 07/30/2023 7:04 AM CDT Cholangiocarcinoma (HCC) COMPREHENSIVE METABOLIC PANEL, S/P Routine 07/30/2023 7:04 AM CDT Cholangiocarcinoma (HCC) documented in this encounter Results * NT-Pro B-Type Natriuretic Peptide (BNP) (07/30/2023 7:04 AM CDT) NT-Pro BNP 91 <=540 pg/mL 07/30/2023 8:04 AM CDT DTL Comment: NT-proBNP values less [...] absence of renal failure. Blood (Blood, Venous) 07/30/2023 7:04 AM CDT 07/30/2023 7:33 AM CDT Yuko LIU, P.A.-C. LAB BLOO D ADD-ON [facility] [address] [place] [address], [facility] [address] [place] [address] * Troponin I, High Sensitivity (07/30/2023 7:04 AM CDT) TROPONIN I, HIGH SENSITIVITY, P 5 <=20 ng/L 07/31/2023 7:42 AM CDT DTL Blood (Blood, Venous) 07/30/2023 7:04 AM CDT 07/30/2023 7:34 AM CDT Yuko LIU P.A.-C. LAB BLOO D NON ADD-ON [facility] [address] [place] [address], [facility] [address] [place] [address] * Lipase (07/30/2023 7:04 AM CDT) Lipase, S 41 13 - 60 U/L 07/30/2023 8: 04 AM CDT DTL Blood (Blood, Venous) 07/30/2023 7:04 AM CDT 07/30/2023 7:33 AM CDT Yuko LIU P.A.-C. LAB BLOO D ADD-ON [facility] [address] [place], [place] [address] [address] [place] [address] * Amylase, Total (07/30/2023 7:04 AM CDT) Amylase, Total, S 50 28 - 100 U/L 07/30/2023 8:04 AM CDT DTL Blood (Blood, Venous) 07/30/2023 7:04 AM CDT 07/30/2023 7:33 AM CDT Yuko LIU P.A.-C. LAB BLOO D ADD-ON Performing Organization Address City/[facility]/ZIP Co de Phone Number [facility] [address] 200 [place] [address] * Phosphorus Inorganic (07/30/2023 7:04 AM CDT) Pathologist [facility] Phosphorus (Inorganic), S 2.9 2.5 - 4.5 mg/dL 07/30/2023 8:04 AM CDT DTL Blood (Blood, Venous) 07/30/2023 7:04 AM CDT 07/30/2023 7:33 AM CDT Yuko LIU P.A.-C. LAB BLOO D ADD-ON Performing Organization Address City/[facility]/ZIP Co de Phone Number [facility] [address] [place] [address] * Magnesium (07/30/2023 7:04 AM CDT) [facility] Magnesium, S 2.2 1.7 - 2.3 mg/dL 07/30/2023 8:04 AM CDT DTL Blood (Blood, Venous) 07/30/2023 7:04 AM CDT 07/30/2023 7:33 AM CDT Yuko LIU P.A.-C. LAB BLOO D ADD-ON [facility] [address] [place] [address] * Uric Acid (07/30/2023 7:04 AM CDT) Pathologist [facility] Uric Acid, S 5.4 3.7 - 8.0 mg/dL 07/30/2023 8:04 AM CDT DTL Blood (Blood, Venous) 07/30/2023 7:04 AM CDT 07/30/2023 7:33 AM CDT Yuko LIU P.A.-C. LAB BLOO D ADD-ON [facility] 200 [place] [address], [facility] 200 [place] [address] * LD (Lactate Dehydrogenase) (07/30/2023 7:04 AM CDT) [facility] LD 209 122 - 222 U/L 07/30/2023 8:20 AM CDT DTL Blood (Blood, Venous) 07/30/2023 7:04 AM CDT 07/30/2023 7:54 AM CDT Christina Moore.-CHolden LAB BLOO D NON ADD-ON [facility] 200 [place] [address], [facility] [address] [place] [address] * (ABNORMAL) Comprehensive Metabolic Panel (07/30/2023 7:04 AM CDT) [facility] Potassium, S 4.6 3.6 - 5.2 mmol/L 07/30/2023 8:04 AM CDT DTL Sodium, S 137 135 - 145 mmol/L 07/30/2023 8:04 AM CDT DTL Chloride, S 105 98 - 107 mmol/L 07/30/2023 8:04 AM CDT DTL Bicarbonate, S 25 22 - 29 mmol/L 07/30/2023 8:04 AM CDT DTL Anion Gap 7 7 - 15 07/30/2023 8:04 AM CDT DTL BUN (Blood Urea Nitrogen), S 28(H) 8 - 24 mg/dL 07/30/2023 8:04 AM CDT DTL Creatinine 1.29 0.74 - 1.35 mg/dL 07/30/2023 8:04 AM CDT DTL Estimated GFR (eGFR) 60 >=60 mL/min/BS A 07/30/2023 8:04 AM CDT DTL Comment: Estimated GFR calculated using the 2020 CKD_EPI creatinine equation. Calcium, Total, S 8.8 8.8 - 10.2 mg/dL 07/30/2023 8:04 AM CDT DTL Glucose, S 109 70 - 140 mg/dL 07/30/2023 8:04 AM CDT DTL Protein, Total, S 6.1(L) 6.3 - 7.9 g/dL 07/30/2023 8:04 AM CDT DTL Albumin, S 3.9 3.5 - 5.0 g/dL 07/30/2023 8:04 AM CDT DTL Aspartate Aminotransferase (AST), S 36 8 - 48 U/L 07/30/2023 8:04 AM CDT DTL Alkaline Phosphatase, S 105 40 - 129 U/L 07/30/2023 8:04 AM CDT DTL Alanine Aminotransferase (ALT), S 35 7 - 55 U/L 07/30/2023 8:04 AM CDT DTL Bilirubin, Total, S 0.3 0.0 - 1.2 mg/dL 07/30/2023 8:04 AM CDT DTL Blood (Blood, Venous) 07/30/2023 7:04 AM CDT 07/30/2023 7:33 AM CDT Yuko LIU, P.A.-C. LAB BLOO D ADD-ON [facility] [address] [place] [address], [facility] [address] [place] [address] * (ABNORMAL) CBC with Differential, Blood (07/30/2023 7:04 AM CDT) Hemoglobin 9.9(L) 13.2 - 16.6 g/dL 07/30/2023 7:27 AM CDT DTL Hematocrit 30.4(L) 38.3 - 48.6 % 07/30/2023 7:27 AM CDT DTL Erythrocytes 3.13(L) 4.35 - 5.65 x10(12)/L 07/30/2023 7:27 AM CDT DTL MCV 97.1 78.2 - 97.9 fL 07/30/2023 7:27 AM CDT DTL RBC Distrib Width 14.7(H) 11.8 - 14.5 % 07/30/2023 7:27 AM CDT DTL Platelet Count 165 135 - 317 x10(9)/L 07/30/2023 7:27 AM CDT DTL Leukocytes 2.1(L) 3.4 - 9.6 x10(9)/L 07/30/2023 7:27 AM CDT DTL Neutrophils 1.14(L) 1.56 - 6.45 x10(9)/L 07/30/2023 7:27 AM CDT DHPM Lymphocytes 0.54(L) 0.95 - 3.07 x10(9)/L 07/30/2023 7:27 AM CDT DTL Monocytes 0.21(L) 0.26 - 0.81 x10(9)/L 07/30/2023 7:27 AM CDT DTL Eosinophils 0.16 0.03 - 0.48 x10(9)/L 07/30/2023 7:27 AM CDT DTL Basophils <0.03 0.01 - 0.08 x10(9)/L 07/30/2023 7:27 AM CDT DTL Blood (Blood, Venous) 07/30/2023 7:04 AM CDT 07/30/2023 7:15 AM CDT Yuko LIU, P.A.-C. LAB BLOO D ADD-ON [facility] [address] [place] [address], [place] DTL [facility] [address] [place] [address] [facility] [address] [place] [address] documented in this encounter Visit Diagnoses Diagnosis Pure Hypercholesterolemia- Primary Cholangiocarcinoma (HCC) documented in this encounter Administered Medications Inactive Administered Medications - up to 3 most recent administrations Medication Order MAR Action Action Date Dose Rate Site heparin flush 500 Units 500 Units, intra-catheter, As needed, line care, Starting on Sat07/30/23 at 0707, When IVAD accessed and not infusing: When no infusion to maintain patency flush every 7 days following NaCL flush. 5 mL (500 units) of Heparin 100 units/mL to each port/lumen. When IVAD not accessed or infusing: When no infusion to maintain patency flush every 28 days following NaCL flush. 5 mL (500 units) of Heparin 100 units/mL to each port/lumen. Given 07/30/2023 7:12 AM CDT 500 Units sodium chloride 0.9 % injection 10-20 mL 10-20 mL, intra-catheter, As needed, line care, Starting on Sat07/30/23 at 0707, When IVAD accessed and infusing: When no infusion to maintain patency, every 12 hours scheduled. 10 mL to each port/lumen. Given 07/30/2023 7:09 AM CDT 20 mL sodium chloride 0.9 % injection 20-40 mL 20-40 mL, intra-catheter, As needed, line care, Starting on Sat07/30/23 at 0707, When IVAD accessed and infusing: Flush prior to blood sampling, post blood transfusion or post blood sampling. 20 mL to each port/lumen. Given 07/30/2023 7:09 AM CDT 20 mL documented in this encounter Additional Health Concerns Infection Onset Date Last Indicated Resolved Time Protective Environment 11/07/2022 11/07/2022 documented as of this encounter Care Teams Marketing Account Executive Relationship Specialty Start Date End Date Mark Colorado M.D. BAY[place]: [phone] [id number], [place] [address] PCP - General Family Medicine 11/09/22 documented as of this encounter
--- OUTSIDE RECORDS SUMMARY | 2023-11-05 22:14 | XMS_ITS | Encounter Summary ---
Author Organization [facility] Address [address] [place] [address] Care Team Providers Care Service Supervisor Name Role Phone Mark Colorado M.D. Primary Care Provider [phone] Encounter Details Date Type Department Care Team (Late st Contact Info) Description 07/30/2023 Orders Only Department of Oncology in [place], [place] [address] [place] [address] Yuko Pennington MPAS, P.A.-C. [address] [place] [phone] Social History Tobacco Use Types Packs/Day Years [...] have a [facility] place to live 09/10/2022 Sex and Gender Information Value Date Recorded Sex Assigned at Male 09/10/2022 12:02 PM CDT Gender Identity Male 09/10/2022 12:02 PM CDT Sexual Orientation Straight 09/10/2022 12 :02 PM CDT documented as of this encounter Plan of Treatment Upcoming Encounters Date Type Department Care Team (Latest Contact Info) Description 11/07/2023 3:15 PM CDT Clinical Communication Virtual Review in [place], [place] [address] [place] [address] 11/15/2023 6:40 AM CDT Lab Department of Laboratory Medicine and Pathology, [facility] [place] in [address] [phone] Loyda Lennon M.D. [address] [place] [phone] 11/15/2023 8:20 AM CDT Office Visit Department of Oncology in [address] [phone] Manjit Velasquez APRN, C.N.P., D.N.P. [address] [place] [phone] 11/15/2023 9:30 AM CDT Comprehensive Visit Department of Palliative Care in [address] [phone] Patty Gomez APRN, C.N.P., M.S.N. [address] [place] [phone] 11/15/2023 2:15 PM CDT Infusion Department of Oncology in [address] [address] Loyda Lennon M.D. [address] [place] [phone] 11/22/2023 7:30 AM CDT Lab Department of Oncology in [place], [place] [address] [place] [phone] Loyda Lennon M.D. [address] [place] [phone] 11/22/2023 8:45 AM CDT Infusion Department of Oncology in [place], [place] [address] [place] [phone] Loyda Lennon M.D. [address] [place] [phone] 11/28/2023 3:30 PM CDT Clinical Communication Virtual Review in [place], [place] [address] [place] [address] 11/29/2023 9:00 AM CDT Procedure visit Department of Urology in [place], [place] [address] [place] [phone] Mark Colorado M.D. [address] [place] [address] [place] [phone] 11/29/2023 11:20 AM CDT Lab Department of Laboratory Medicine and Pathology, [facility], in [place], [place] [address] [place] [phone] Loyda Lennon M.D. [address] [place] [phone] 11/29/2023 11:30 AM CDT Lab Department of Oncology in [place], [place] [address] [place] [phone] Loyda Lennon M.D. [address] [place] [phone] 11/29/2023 1:00 PM CDT Infusion Department of Oncology in [place], [place] [address] [place] [phone] Loyda Lennon M.D. [address] [place] [phone] 12/03/2023 1:45 PM CDT Comprehensive Visit Department of Urology in [place], [place] [address] [place] [phone] Mona Egan P.A.-C. [address] [place] [phone] 12/05/2023 1:20 PM CDT Comprehensive Visit Department of Oncology in [place], [place] [address] [place] [phone] Letty Kate M.D. [address] [place] [address] 12/10/2023 3:00 PM CDT Clinical Communication Virtual Review in [place], [place] [address] [place] [address] 12/10/2023 3:30 PM CDT Procedure visit Department of Urology in [place], [place] [address] [place] [phone] Mark Colorado M.D. [address] [place] [address] [place] [phone] 12/12/2023 3:45 PM CDT Appointment Department of Radiology, [facility], in [place], [place] [address] [place] [phone] Na Hernandez M.D., Ph.D. [address] [place] [phone] 12/13/2023 6:00 AM CDT Lab Department of Laboratory Medicine and Pathology, [facility] in [place], [place] [address] [place] [phone] Loyda Lennon M.D. [address] [place] [phone] 12/13/2023 6:20 AM CDT Lab Department of Infusion Therapy in [place], [place] [address] [place] [phone] Loyda Lennon M.D. [address] [place] [phone] 12/13/2023 11:10 AM CDT Office Visit Department of Oncology in [place], [place] [address] [place] [phone] Na Hernandez M.D., Ph.D. [address] [place] [address] 12/13/2023 1:00 PM CDT Infusion Department of Oncology in [place], [place] [address] [place] [phone] Loyda Lennon M.D. [address] [place] [phone] 12/20/2023 9:20 AM CDT Lab Department of Infusion Therapy in [place], [place] [address] [place] [phone] Loyda Lennon M.D. [address] [place] [phone] 12/20/2023 10:30 AM CDT Infusion Department of Oncology in [place], [place] [address] [place] [phone] Loyda Lennon M.D. [address] [place] [phone] 12/25/2023 10:30 AM CDT Appointment Division of Gastroenterology in [place], [place] [address] [place] [phone] Na Hernandez M.D., Ph.D. [address] [place] [phone] 12/27/2023 10:15 AM CDT Lab Department of Oncology in [place], [place] [address] [place] [phone] Loyda Lennon M.D. [address] [place] [phone] 12/27/2023 10:30 AM CDT Lab Department of Laboratory Medicine and Pathology, [facility] in [address] [phone] Loyda Lennon M.D. [address] [place] [phone] 12/27/2023 11:45 AM CDT Infusion Department of Oncology in [address] [phone] Loyda Lennon M.D. [address] [place] [phone] 01/03/2024 1:00 PM CDT Clinical Communication Virtual Review in [place], [place] [address] [place] [address] 01/10/2024 8:00 AM CDT Lab Department of Infusion Therapy in [address] [phone] Loyda Lennon M.D. [address] [place] [phone] 01/10/2024 8:20 AM CDT Lab Department of Laboratory Medicine and Pathology, [facility] in [place], [place] [address] [place] [phone] Loyda Lennon M.D. [address] [place] [phone] 01/10/2024 10:30 AM CDT Office Visit Department of Oncology in [place], [place] [address] [place] [phone] Na Hernandez M.D., Ph.D. [address] [place] [phone] 01/10/2024 11:45 AM CDT Infusion Department of Oncology in [place], [place] [address] [place] [phone] Loyda Lennon M.D. [address] [place] [phone] 01/17/2024 8:45 AM CDT Lab Department of Oncology in [place], [place] [address] [place] [phone] Loyda Lennon M.D. [address] [place] [phone] 01/17/2024 10:00 AM CDT Infusion Department of Oncology in [place], [place] [address] [place] [phone] Loyda Lennon M.D. [address] [place] [phone] 01/24/2024 8:00 AM CDT Lab Department of Laboratory Medicine and Pathology, [facility], in [place], [place] [address] [place] [address] Loyda Lennon M.D. [address] [place] [address] 01/24/2024 8:15 AM CDT Lab Department of Oncology in [place], [place] [address] [place] [address] Loyda Lennon M.D. [address] [place] [phone] 01/24/2024 9:15 AM CDT Infusion Department of Oncology in [place], [place] [address] [place] [address] Loyda Lennon M.D. [address] [place] [phone] Scheduled Procedures Name Priority Associated Diagnoses Date/Ti me HEPATECTOMY RESECTION LIVER Cholangiocarcinoma (HCC) ULTRASOUND LIVER Cholangiocarcinoma (HCC) RECONSTRUCTION PORTAL VEIN Cholangiocarcinoma (HCC) documented as of this encounter Visit Diagnoses Not on filedocumented in this encounter Additional Health Concerns Infection Onset Date Last Indicated Resolved Time Protective Environment 11/07/2022 11/07/2022 documented as of this encounter Care Teams Service Supervisor Relationship Specialty Start Date End Date Mark Colorado M.D. [address] [place] [address] PCP - General Family Medicine 11/09/22 documented as of this encounter
--- OUTSIDE RECORDS SUMMARY | 2023-11-05 22:14 | XMS_ITS | Encounter Summary ---
Author Organization [facility] Address [address] [place] [address] Care Team Providers Care Drafter Electromechanical Name Role Phone Mark Colorado M.D. Primary Care Provider [phone] Reason for Referral * MRI/CAT/PET Scan (Routine) - Closed Specialty Diagnoses / Procedures Referred By Chloe hinkle Referred To Contact Radiology Diagnoses Cholangiocarcinoma (HCC) Procedures CT Abdomen Pelvis with IV Contrast Na Hernandez M.D., Ph.D. [address] [place] [address] [facility] Referral ID Status Reason Start Date Expiration Date Visits Re quested Visits Authorized [id number] Closed 06/18/2023 06/17/2024 1 1 * MRI/CAT/PET Scan (Routine) - Closed Specialty Diagnoses / Procedures Referred By Chloe hinkle Referred To Contact Radiology Diagnoses Cholangiocarcinoma (HCC) Procedures CT Chest with IV Contrast Na Hernandez M.D., Ph.D. [address] [place] [phone] [facility] Referral ID Status Reason Start Date Expiration Date Visits Re quested Visits Authorized [id number] Closed 06/18/2023 06/17/2024 1 1 Reason for Visit * MRI/CAT/PET Scan (Routine) - Closed Specialty Diagnoses / Procedures Referred By Chloe hinkle Referred To Contact Radiology Diagnoses Cholangiocarcinoma (HCC) Procedures CT Abdomen Pelvis with IV Contrast Na Hernandez M.D., Ph.D. [address] [place] [phone] [facility] Referral ID Status Reason Start Date Expiration Date Visits Re quested Visits Authorized [id number] Closed 06/18/2023 06/17/2024 1 1 Encounter Details Date Type Department Care Team (Latest Contact Info) Description 07/31/2023 3:30 PM CDT - 07/31/2023 11:59 PM CDT Hospital Encounter Department of Radiology, [facility], in [place], [place] [address] [place] [phone] Na Hernandez M.D., Ph.D. [address] [place] [phone] Cholangiocarcinoma (HCC) Discharge Disposition: Home or Self [...] Take 200 mg by mouth daily. glucosamine cvq-dxcivlmrvk-unp 500-200-150 mg tablet Take 1 tablet by [...] 02/14/2023 prochlorperazine (COMPAZINE) 10 mg tabletIndications:Ch olangiocarcinoma (HCC),Snf Current Drug Therapy, Chemotherapy Take 1 tablet [...] Chronic Pain/Nonacute Pain. 60 tablet 07/05/2023 09/02/2023 ondansetron (ZOFRAN) 8 mg tabletIndications:Ch olangiocarcinoma (HCC),Snf Current Drug Therapy, Chemotherapy Take 1 tablet (8 mg total) by mouth every 8 (eight) hours as needed for nausea or vomiting. 30 tablet 3 11/02/2022 10/02/2023 documented as of this encounter Plan of Treatment Upcoming Encounters Date Type Department Care Team (Latest Contact Info) Description 11/07/2023 3:15 PM CDT Clinical Communication Virtual Review in [address] [phone] 11/15/2023 6:40 AM CDT Lab Department of Laboratory Medicine and Pathology, [facility] in [address] [phone] Loyda Lennon M.D. [address] [place] [phone] 11/15/2023 8:20 AM CDT Office Visit Department of Oncology in [address] [phone] Manjit Velasquez, KAYLEE, C.N.P., D.N.P. [address] [place] [phone] 11/15/2023 9:30 AM CDT Comprehensive Visit Department of Palliative Care in [place], [place] [address] [place] [phone] Patty Gomez APRN, C.N.P., M.S.N. [address] [place] [phone] 11/15/2023 2:15 PM CDT Infusion Department of Oncology in [place], [place] [address] [place] [phone] Loyda Lennon M.D. [address] [place] [phone] 11/22/2023 7:30 AM CDT Lab Department of Oncology in [place], [place] [address] [place] [phone] Loyda Lennon M.D. [address] [place] [phone] 11/22/2023 8:45 AM CDT Infusion Department of Oncology in [place], [place] [address] [place] [phone] Loyda Lennon M.D. [address] [place] [phone] 11/28/2023 3:30 PM CDT Clinical Communication Virtual Review in [place], [place] 200 [place] [address] 11/29/2023 9:00 AM CDT Procedure visit Department of Urology in [address] [phone] Mark Colorado M.D. [address] [place] [phone] 11/29/2023 11:20 AM CDT Lab Department of Laboratory Medicine and Pathology, [facility], in [place], [place] [address] [place] [phone] Loyda Lennon M.D. [address] [place] [phone] 11/29/2023 11:30 AM CDT Lab Department of Oncology in [place], [place] [address] [place] [phone] Loyda Lennon M.D. [address] [place] [phone] 11/29/2023 1:00 PM CDT Infusion Department of Oncology in [place], [place] [address] [place] [phone] Loyda Lennon M.D. [address] [place] [phone] 12/03/2023 1:45 PM CDT Comprehensive Visit Department of Urology in [address] [phone] Mona Egan P.A.-C. [address] [place] [phone] 12/05/2023 1:20 PM CDT Comprehensive Visit Department of Oncology in [address] [phone] Letty Kate M.D. [address] [place] [phone] 12/10/2023 3:00 PM CDT Clinical Communication Virtual Review in [place], [place] [address] [place] [address] 12/10/2023 3:30 PM CDT Procedure visit Department of Urology in [place], [place] [address] [place] [phone] Mark Colorado M.D. [address] [place] [phone] 12/12/2023 3:45 PM CDT Appointment Department of Radiology, [facility], in [place], [place] [address] [place] [phone] Na Hernandez M.D., Ph.D. [address] [place] [phone] 12/13/2023 6:00 AM CDT Lab Department of Laboratory Medicine and Pathology, [facility] in [place], [place] [address] [place] [phone] Loyda Lennon M.D. [address] [place] [phone] 12/13/2023 6:20 AM CDT Lab Department of Infusion Therapy in [place], [place] [address] [place] [phone] Loyda Lennon M.D. [address] [place] [phone] 12/13/2023 11:10 AM CDT Office Visit Department of Oncology in [place], [place] [address] [place] [phone] Na Hernandez M.D., Ph.D. [address] [place] [phone] 12/13/2023 1:00 PM CDT Infusion Department of Oncology in [place], [place] [address] [place] [phone] Loyda Lennon M.D. [address] [place] [phone] 12/20/2023 9:20 AM CDT Lab Department of Infusion Therapy in [place], [place] [address] [place] [phone] Loyda Lennon M.D. [address] [place] [phone] 12/20/2023 10:30 AM CDT Infusion Department of Oncology in [place], [place] [address] [place] [phone] Loyda Lennon M.D. [address] [place] [phone] 12/25/2023 10:30 AM CDT Appointment Division of Gastroenterology in [address] [phone] Na Hernandez M.D., Ph.D. [address] [place] [phone] 12/27/2023 10:15 AM CDT Lab Department of Oncology in [place], [place] [address] [place] [phone] Loyda Lennon M.D. [address] [place] [phone] 12/27/2023 10:30 AM CDT Lab Department of Laboratory Medicine and Pathology, [facility] in [place], [place] [address] [place] [phone] Loyda Lennon M.D. [address] [place] [phone] 12/27/2023 11:45 AM CDT Infusion Department of Oncology in [place], [place] [address] [place] [phone] Loyda Lennon M.D. [address] [place] [phone] 01/03/2024 1:00 PM CDT Clinical Communication Virtual Review in [place], [place] [address] [place] [address] 01/10/2024 8:00 AM CDT Lab Department of Infusion Therapy in [place], [place] [address] [place] [phone] Loyda Lennon M.D. [address] [place] [phone] 01/10/2024 8:20 AM CDT Lab Department of Laboratory Medicine and Pathology, [facility], in [place], [place] [address] [place] [phone] Loyda Lennon M.D. [address] [place] [phone] 01/10/2024 10:30 AM CDT Office Visit Department of Oncology in [address] [phone] Na Hernandez M.D., Ph.D. [address] [place] [phone] 01/10/2024 11:45 AM CDT Infusion Department of Oncology in [address] [phone] Loyda Lennon M.D. [address] [place] [phone] 01/17/2024 8:45 AM CDT Lab Department of Oncology in [address] [phone] Loyda Lennon M.D. [address] [place] [phone] 01/17/2024 10:00 AM CDT Infusion Department of Oncology in [place], [place] [address] [place] [phone] Loyda Lennon M.D. [address] [place] [phone] 01/24/2024 8:00 AM CDT Lab Department of Laboratory Medicine and Pathology, [facility] in [place], [place] [address] [place] [phone] Loyda Lennon M.D. [address] [place] [phone] 01/24/2024 8:15 AM CDT Lab Department of Oncology in [place], [place] [address] [place] [phone] Loyda Lennon M.D. [address] [place] [phone] 01/24/2024 9:15 AM CDT Infusion Department of Oncology in [place], [place] [address] [place] [phone] Loyda Lennon M.D. [address] [place] [phone] Scheduled Procedures Name Priority Associated Diagnoses Date/Ti me HEPATECTOMY RESECTION LIVER Cholangiocarcinoma (HCC) ULTRASOUND LIVER Cholangiocarcinoma (HCC) RECONSTRUCTION PORTAL VEIN Cholangiocarcinoma (HCC) documented as of this encounter Procedures Procedure Name Priority Date/Time Associated Diagnosis Comments CT ABDOMEN PELVIS WITH IV CONTRAST RAD - Routine (most inpatients and all outpatients) 07/31/2023 4:47 PM CDT Cholangiocarcinom a (HCC) CT CHEST WITH IV CONTRAST RAD - Routine (most inpatients and all outpatients) 07/31/2023 4:47 PM CDT Cholangiocarcinom a (HCC) documented in this encounter Results * CT Abdomen Pelvis with IV Contrast (07/31/2023 4:47 PM CDT) Anatomical Region Laterality Modality Abdomen, Pelvis, Abdominal R ST LOS, Abdominal ARZ LOS, Abdominal FLA LOS N/A Computed Tomograp hy, Computed Tomography 07/31/2023 4:44 PM CDT Impressions 08/01/2023 11:26 AM CDT 1. ??Peritoneal metastatic disease has decreased since 06/05/2023. 2. ??No measurable change in size of perihilar cholangiocarcinoma. 3. ??Slight increase in mild splenomegaly. Increase in small volume ascites. Narrative 08/01/2023 11:26 AM CDT EXAM: ??CT ABDOMEN PELVIS WITH IV CONTRAST COMPARISON: ??CT abdomen/pelvis 06/05/2023. FINDINGS: No measurable change in size of 5.1 cm perihilar cholangiocarcinoma (series 4, image 44). Stable small hypoattenuating lesions in the right hepatic lobe, likely benign. No significant change in position of two plastic biliary stents, one extending into segment 2 and the other into segment 8. Stable mild intrahepatic bile duct dilation in the left hepatic lobe. Increase in small volume ascites, now extending to adjacent to the spleen and into the pelvis. Infiltrative soft tissue in the right omentum has decreased in density and nodularity since 06/15/2023 (series 7, image 40 compared with 06/05/2023 series 8, image 30). The prior more discrete nodule in the inferior right paracolic gutter is not well seen today, but could be obscured by increased ascites. Slight increase in mild splenomegaly, the spleen measuring 14.2 cm in length, previously 13.8 cm. Splenule. Prostatomegaly. Tiny fat-containing umbilical hernia. Mild posterior subluxation of L5. Moderate partially-calcified arterial atheromatous disease. This examination was performed in conjunction with a CT of the chest, which will be reported separately. Procedure Note Rudy Kaur M.D., Ph.D. - 08/01/2023 EXAM: CT ABDOMEN PELVIS WITH IV CONTRAST COMPARISON: CT abdomen/pelvis 06/05/2023. FINDINGS: No measurable change in size of 5.1 cm perihilar cholangiocarcinoma(series 4, image 44). Stable small hypoattenuating lesions in the right hepatic lobe, likelybenign. No significant change in position of two plastic biliary stents, oneextending into segment 2 and the other into segment 8. Stable mildintrahepatic bile duct dilation in the left hepatic lobe. Increase in small volume ascites, now extending to adjacent to the spleenand into the pelvis. Infiltrative soft tissue in the right omentum hasdecreased in density and nodularity since 06/15/2023 (series 7, image 40compared with 06/05/2023 series 8, image 30). The prior more discrete nodule in the inferior right paracolicgutter is not well seen today, but could be obscured by increasedascites. Slight increase in mild splenomegaly, the spleen measuring 14.2 cm inlength, previously 13.8 cm. Splenule. Prostatomegaly. Tiny fat-containing umbilical hernia. Mild posteriorsubluxation of L5. Moderate partially-calcified arterial atheromatousdisease. This examination was performed in conjunction with a CT of the chest,which will be reported separately. IMPRESSION: 1. Peritoneal metastatic disease has decreased since 06/05/2023. 2. No measurable change in size of perihilar cholangiocarcinoma. 3. Slight increase in mild splenomegaly. Increase in small volumeascites. Na Hernandez M.D., Ph.D. [facility] CT PROC EDURES * CT Chest with IV Contrast (07/31/2023 4:47 PM CDT) Anatomical Region Laterality Modality Chest, Thoracic RST LOS, Tho racic ARZ LOS, Thoracic ARZ LOS, Thoracic FLA LOS N/A Computed Tomography, Compute d Tomography 07/31/2023 4:45 PM CDT Impressions 07/31/2023 5:00 PM CDT 1. No significant change since 06/05/2023 including a few previously stable tiny nodules and mildly prominent thoracic nodes. Narrative 07/31/2023 5:00 PM CDT EXAM: CT CHEST WITH IV CONTRAST COMPARISON: Chest CT 06/05/2023 FINDINGS: Continued stability of tiny pulmonary nodules for example right lower lobe ( 3/370), right middle lobe ( 3/381), lingula ( 3/345). No new nodules. Mild scarring/atelectasis in the bases. No change in a few small and mildly prominent thoracic nodes, for example in the left internal mammary chain on , right cardiophrenic angle on 468, lower paraesophageal region on 510. No definite thoracic adenopathy. No effusions. Old healed right rib fractures. Degenerative skeletal changes. No aggressive bone lesion in the chest. ADDITIONAL FINDINGS: Right Port-A-Cath tip at the SVC/RA junction. Mild bilateral gynecomastia. Examination performed in conjunction with separately reported CT of the abdomen/pelvis. Procedure Note Liza Lopez M.D. - 07/31/2023 EXAM: CT CHEST WITH IV CONTRAST COMPARISON: Chest CT 06/05/2023 FINDINGS: Continued stability of tiny pulmonary nodules for example right lower lobe( 3/370), right middle lobe ( 3/381), lingula ( 3/345). No new nodules.Mild scarring/atelectasis in the bases. No change in a few small and mildly prominent thoracic nodes, for examplein the left internal mammary chain on , right cardiophrenic angle on468, lower paraesophageal region on 510. No definite thoracicadenopathy. No effusions. Old healed right rib fractures. Degenerative skeletal changes. Noaggressive bone lesion in the chest. ADDITIONAL FINDINGS: Right Port-A-Cath tip at the SVC/RA junction. Mildbilateral gynecomastia. Examination performed in conjunction with separately reported CT of theabdomen/pelvis. IMPRESSION: 1. No significant change since 06/05/2023 including a few previously stabletiny nodules and mildly prominent thoracic nodes. Na Hernandez M.D., Ph.D. G CT PROC EDURES documented in this encounter Visit Diagnoses Diagnosis Cholangiocarcinoma (HCC) documented in this encounter Administered Medications Inactive Administered Medications - up to 3 most recent administrations Medication Order MAR Action Action Date Dose Rate Site heparin flush 500-1,000 Units 500-1,000 Units, intra-catheter, During hospitalization, line care, Prior to discharge, Starting on Sat07/31/23 at 1631, For 1 dose, Implanted Vascular Access Device (IVAD) Venous Non-Valved: flush 5 mL (500 units) per port/lumen following saline flush prior to discharge. Given 07/31/2023 4:44 PM CDT 500 Units Port iohexoL 300 mg iodine/mL solution 1-200 mL (OMNIPAQUE) 1-200 mL, intravenous, Once in imaging, contrast, Starting on Sat07/31/23 at 1626, For 1 dose, Imaging Protocol Orders, Dose per Radiant Medication Guidelines Given 07/31/2023 4:35 PM CDT 140 mL sodium chloride (PF) 0.9 % injection 1-100 mL 1-100 mL, intravenous, Once, On Sat07/31/23 at 1645, For 1 dose, Imaging Protocol Orders, Dose per Radiant Medication Guidelines Given 07/31/2023 4:35 PM CDT 48 mL sodium chloride 0.9 % injection 10-20 mL 10-20 mL, intravenous, As needed, line care, Implanted Vascular Access Device (IVAD) Venous Non-Valved, Starting on Sat07/31/23 at 1631, Prior to and following infusion and between multiple consecutive infusions, flush 10 mL to each port/lumen. Given 07/31/2023 4:44 PM CDT 10 mL Port documented in this encounter Additional Health Concerns Infection Onset Date Last Indicated Resolved Time Protective Environment 11/07/2022 11/07/2022 documented as of this encounter Care Teams Drafter Electromechanical Relationship Specialty Start Date End Date Mark [place] M.D. [address], [place] [phone] PCP - General Family Medicine 11/09/22 documented as of this encounter
--- OUTSIDE RECORDS SUMMARY | 2023-11-05 22:14 | XMS_ITS | Encounter Summary ---
Author Organization [facility] Address [address] [place] [address] Care Team Providers Care Scrap Crusher Name Role Phone Mark Colorado M.D. Primary Care Provider [phone] Encounter Details Date Type Department Care Team (Latest Contact Info) Description 07/16/2023 Orders Only Department of Oncology in [place], [place] [address] [place] [address] Karen Burger Cholangiocarcinoma (HCC) (Primary Dx); Operational Trainer Current Drug Therapy, Chemotherapy; Peritoneal Carcinomatosis (HCC) [...] your living situation today? [facility] 09/10/2022 Sex and Gender Information Value Date Recorded Sex Assigned at Male 09/10/2022 12:02 PM CDT Gender Identity Male 09/10/2022 12:02 PM CDT Sexual Orientation Straight 09/10/2022 12 :02 PM CDT documented as of this encounter Plan of Treatment Upcoming Encounters Date Type Department Care Team (Latest Contact Info) Description 11/07/2023 3:15 PM CDT Clinical Communication Virtual Review in [place], [place] [address] [place] [address] 11/15/2023 6:40 AM CDT Lab Department of Laboratory Medicine and Pathology, [facility] in [address] [phone] Loyda Lennon M.D. [address] [place] [phone] 11/15/2023 8:20 AM CDT Office Visit Department of Oncology in [address] [phone] Manjit Velasquez APRN, C.N.P., D.N.P. [address] [place] [phone] 11/15/2023 9:30 AM CDT Comprehensive Visit Department of Palliative Care in [address] [phone] Patty Gomez APRN, C.N.P., M.S.N. [address] [place] [phone] 11/15/2023 2:15 PM CDT Infusion Department of Oncology in [place], [place] [address] [place] [phone] Loyda Lennon M.D. [address] [place] [phone] 11/22/2023 7:30 AM CDT Lab Department of Oncology in [place], [place] [address] [place] [phone] Loyda Lennon M.D. [address] [place] [phone] 11/22/2023 8:45 AM CDT Infusion Department of Oncology in [place], [place] [address] [place] [phone] Loyda Lennon M.D. [address] [place] [phone] 11/28/2023 3:30 PM CDT Clinical Communication Virtual Review in [place], [place] [address] [place] [address] 11/29/2023 9:00 AM CDT Procedure visit Department of Urology in [place], [place] [address] [place] [phone] Mark Colorado M.D. [address] [place] [phone] 11/29/2023 11:20 AM CDT Lab Department of Laboratory Medicine and Pathology, [facility], in [place], [place] [address] [place] [phone] Loyda Lennon M.D. [address] [place] [phone] 11/29/2023 11:30 AM CDT Lab Department of Oncology in [place], [place] [address] [place] [phone] Loyda Lennon M.D. [address] [place] [phone] 11/29/2023 1:00 PM CDT Infusion Department of Oncology in [place], [place] [address] [place] [phone] Loyda Lennon M.D. [address] [place] [phone] 12/03/2023 1:45 PM CDT Comprehensive Visit Department of Urology in [place], [place] [address] [place] [phone] Mona Egan P.A.-C. [address] [place] [phone] 12/05/2023 1:20 PM CDT Comprehensive Visit Department of Oncology in [place], [place] [address] [place] [phone] Letty Kate M.D. [address] [place] [phone] 12/10/2023 3:00 PM CDT Clinical Communication Virtual Review in [place], [place] [address] [place] [address] 12/10/2023 3:30 PM CDT Procedure visit Department of Urology in [place], [place] [address] [place] [phone] Mark Colorado M.D. [address] [place] [phone] 12/12/2023 3:45 PM CDT Appointment Department of Radiology, [facility], in [place], [place] [address] [place] [phone] Na Hernandez M.D., Ph.D. [address] [place] [phone] 12/13/2023 6:00 AM CDT Lab Department of Laboratory Medicine and Pathology, [facility], in [place], [place] [address] [place] [phone] Loyda Lennon M.D. [address] [place] [phone] 12/13/2023 6:20 AM CDT Lab Department of Infusion Therapy in [place], [place] [address] [place] [phone] Loyda Lennon M.D. [address] [place] [phone] 12/13/2023 11:10 AM CDT Office Visit Department of Oncology in [address] [phone] Na Hernandez M.D., Ph.D. [address] [place] [phone] 12/13/2023 1:00 PM CDT Infusion Department of Oncology in [address] [phone] Loyda Lennon M.D. [address] [place] [phone] 12/20/2023 9:20 AM CDT Lab Department of Infusion Therapy in [address] [phone] Loyda Lennon M.D. [address] [place] [phone] 12/20/2023 10:30 AM CDT Infusion Department of Oncology in [place], [place] [address] [place] [phone] Loyda Lennon M.D. [address] [place] [phone] 12/25/2023 10:30 AM CDT Appointment Division of Gastroenterology in [place], [place] [address] [place] [phone] Na Hernandez M.D., Ph.D. [address] [place] [phone] 12/27/2023 10:15 AM CDT Lab Department of Oncology in [place], [place] [address] [place] [phone] Loyda Lennon M.D. [address] [place] [phone] 12/27/2023 10:30 AM CDT Lab Department of Laboratory Medicine and Pathology, [facility] in [address] [phone] Loyda Lennon M.D. [address] [place] [phone] 12/27/2023 11:45 AM CDT Infusion Department of Oncology in [address] [phone] Loyda Lennon M.D. [address] [place] [phone] 01/03/2024 1:00 PM CDT Clinical Communication Virtual Review in [place], [place] [address] [place] [address] 01/10/2024 8:00 AM CDT Lab Department of Infusion Therapy in [place], [place] [address] [place] [phone] Loyda Lennon M.D. [address] [place] [phone] 01/10/2024 8:20 AM CDT Lab Department of Laboratory Medicine and Pathology, [facility] in [place], [place] [address] [place] [phone] Loyda Lennon M.D. [address] [place] [phone] 01/10/2024 10:30 AM CDT Office Visit Department of Oncology in [place], [place] [address] [place] [phone] Na Hernandez M.D., Ph.D. [address] [place] [phone] 01/10/2024 11:45 AM CDT Infusion Department of Oncology in [place], [place] [address] [place] [phone] Loyda Lennon M.D. [address] [place] [phone] 01/17/2024 8:45 AM CDT Lab Department of Oncology in [place], [place] [address] [place] [phone] Loyda Lennon M.D. [address] [place] [phone] 01/17/2024 10:00 AM CDT Infusion Department of Oncology in [address] [phone] Loyda Lennon M.D. [address] [place] [phone] 01/24/2024 8:00 AM CDT Lab Department of Laboratory Medicine and Pathology, [facility], in [place], [place] [address] [place] [phone] Loyda Lennon M.D. [address] [place] [phone] 01/24/2024 8:15 AM CDT Lab Department of Oncology in [place], [place] [address] [place] [address] Loyda Lennon M.D. [address] [place] [address] 01/24/2024 9:15 AM CDT Infusion Department of Oncology in [place], [place] [address] [place] [address] Loyda Lennon M.D. [address] [place] [address] Scheduled Procedures Name Priority Associated Diagnoses Date/Ti me HEPATECTOMY RESECTION LIVER Cholangiocarcinoma (HCC) ULTRASOUND LIVER Cholangiocarcinoma (HCC) RECONSTRUCTION PORTAL VEIN Cholangiocarcinoma (HCC) documented as of this encounter Visit Diagnoses Diagnosis Cholangiocarcinoma (HCC)- Primary Skilled Nursing Current Drug Therapy, Chemotherapy Peritoneal Carcinomatosis (HCC) documented in this encounter Additional Health Concerns Infection Onset Date Last Indicated Resolved Time Protective Environment 11/07/2022 11/07/2022 documented as of this encounter Care Teams Scrap Crusher Relationship Specialty Start Date End Date Mark Colorado M.D. [address] [place] [phone] PCP - General Family Medicine 11/09/22 documented as of this encounter
--- OUTSIDE RECORDS SUMMARY | 2023-11-05 22:15 | XMS_ITS | Clinical Summary ---
Author Organization [employer] [facility] [facility] Address [place], [place] [address] Care Team Providers Care Fitness Assistant Name Role Phone Unavailable Primary Care Provider Unavailabl e Allergies No known active allergies Medications Medication Sig Dispensed Refills Start Date End Date Status Cholecalciferol, Vitamin D3, (VITAMIN D) 5,000 unit Tab Take 5,000 Units by mouth once daily. Active Coenzyme Q10 10 mg cap Take 1 Capsule (10 mg) by mouth once daily. 0 12/01/2020 Active medication order composer Over the counter stool softner 0 12/01/2020 Active magnesium 250 mg tab Take 1 Tablet by mouth once daily. 09/13/2021 Active glucosamine uyq-uzjaurfoxm-bbz 500-200-150 mg tab Take 1 Tablet by mouth once daily. 12/05/2021 Active cyanocobalamin (Vitamin B-12) 1,000 mcg tablet Take 1 Tablet (1,000 mcg) by mouth once daily. 12/05/2021 Active LOW-DOSE ASPIRIN ORAL 08/16/2021 Act gabriel Active Problems Problem Noted Date Diagnosed Date Pure hypercholesterolemia, unspecified 9 Resolved Problems Problem Noted Date Diagnosed Date Resolved Date Essential (primary) hypertension 08/10/2019 12/05/2021 Venous anomaly 03/02/2011 06/01/2021 Subdural hematoma 02/27/2011 12/01/2020 Brain compression 02/27/2011 12/05/2021 Immunizations Name Administration Dates Next Due Influenza Intradermal PF 18-64 yrs 01/09/2013, Influenza RIV4 (Age 18+ Years) PRESERV FREE 12/31 Influenza, High-dose Quadrivalent Inactivated ,01/23/2021 Influenza, IIV3 (Age 6-35 mos) 02/13/2011,2008 Influenza, IIV3 (Age >=3 years) 02/13/2011 Influenza, IIV4 01/14/2018 Influenza, Inactivated AIIV4 (Age 65+ Years) Preserv Free 01/15/2020 Influenza,CCIIV4 PRESERV FREE 02/03/2017, 016 Pneumococcal Poly,23-Valent (Pneumovax) 12/01/19 20 Pneumococcal conj 13-Valent (Prevnar 13) 019 Td (Age >=7 Years) 11/25/1995 Tdap 05/28/2013 Family History Medical History Relation Name Comments Hypertension Father Relation Name Status Comments Brother 1 Alive Brother 2 Alive Brother 3 Alive Father Mother Alive Sister 1 Alive Sister 2 Alive Sister 3 Alive Social History Tobacco Use Types Packs/Day Years Used Date Smoking Tobacco: Never Smokeless Tobacco: Never Tobacco Cessation:Counseling Given: Yes Alcohol Use Standard Drinks/Week Comments Yes 0 (1 standard drink = 0.6 oz pur e alcohol) occasionally PHQ-2 Answer Date Recorded PHQ-2 TOTAL SCORE 0 12/05/2021 Social Connections Answer Date Recorded Frequency of Communication with Friends and Fami ly Not on file 12/08/2022 Financial Resource Strain Answer Date R ecorded Difficulty of Paying Living Expenses 3 09/18/2021 Difficulty of Paying Living Expenses Not on file 09/18/2021 Food Insecurity Answer Date Recorded Worried About Running Out of Food in the Last Ye ar 1 09/18/2021 Transportation Needs Answer Date Record ed Lack of Transportation (Medical) 1 09/18/2021 Housing Stability Answer Date Recorded Unable to Pay for Housing in the Last Year 1 09/18/2021 Sex and Gender Information Value Date Recorded Sex Assigned at Male 05/31/2021 5:56 PM RN OR LVN Gender Identity Male 05/31/2021 5:53 PM RN OR LVN Sexual Orientation Straight 05/31/2021 5: 56 PM RN OR LVN Obstetrics History Last Filed Vital Signs Vital Sign Reading Time Taken Comments Blood Pressure 132/82 07/02/2022 11:32 AM CDT Pulse 60 07/02/2022 11:32 AM CDT Temperature 36.8 ??C (98.3 ??F) 09/18/2021 1:40 PM CD T Respiratory Rate 18 03/23/2011 12:33 PM RN OR LVN Oxygen Saturation 98% 09/18/2021 1:40 PM CDT Inhaled Oxygen Concentration - - Weight 99.3 kg (219 lb) 07/02/2022 11:32 AM CDT Height 184.2 cm (6' 0.5) 07/02/2022 11:32 AM CD T Body Mass Index 29.29 07/02/2022 11:32 AM CDT Plan of Treatment Health Maintenance Due Date Last Done Comments Zoster (shingles) series for age 50+ (1 of 2) 2003 Depression screening for age 12+ 12/05/2022 12/06/19 22, 12/01/2020 Medicare Wellness for age 65+ 12/06/2022 12/05/2021, 12/01/2020 Tetanus booster 05/28/2023 05/28/2013, 11/25/1995 COVID-19 vaccine series ( season) 2023 01/29/2023, 01/15/2022, 01/23/2021, Additional history exists BMI (ht and wt on same day) for age 18+ 07/03/2023 07/02/2022, 12/05/2021, 12/01/2020 Influenza for age 65+ 12/01/2023 01/15/2022 , 01/23/2021, 01/15/2020, Additional history exists Colonoscopy through age 75 07/18/2026 07/18/2016 Lipids for age 45-75 12/05/2026 12/05/2021, 12/02/19 21 Tdap Completed 05/28/2013 Pneumococcal series for age 65+ Completed , 11/17/2018 Hepatitis C screening for ag e 18-79 Completed 12/01/2020 Medical Devices Implanted Type Area Sheep Or Calf Grader Device Identifier Shelf Expiration Date Model / Serial / Lot Cartrg Rapidfire Sd 1.5x4mm - [id number] Implanted:Qty: 2 on 03/15/2011 at [facility] Left: Brain [employer] 09/29/2013 [id number] / / [id number] Plate Thinflap 18.5mm Bent [place] Hole - [id number] Implanted:Qty: 1 on 03/15/2011 at [facility] Left: Cranium [employer] [id number]# / / LOAD #[id number] FEB 2011 Plate Thinflap 13mm Bent [place] Hole - [id number] Implanted:Qty: 2 on 03/15/2011 at [facility] Left: Cranium [employer] -9# / / LOAD #[id number] FEB 2011 Procedures Procedure Name Priority Date/Time Associated Diagnosis Comments LIPID PANEL W REFLEX MEASURED LDL Routine 12/05/2021 10:25 AM CDT Hyperlipidemia, unspecified hyperlipidemia type ANTI HCV Routine 12/01/2020 11:38 AM CDT Need for hepatitis C screening test SCAN-COLONOSCOPY 07/18/2016 12:0 0 AM CDT from Last 3 Months or Most Recently Relevant to Health Maintenance Results * (ABNORMAL) LIPID PANEL W REFLEX MEASURED LDL (12/05/2021 10:25 AM CDT) CHOLESTEROL,TOTAL 192 100 - 199 mg/dL 12/05/2021 5:56 PM CDT [facility] TRIGLYCERIDES 54 <150 mg/dL 12/05/2021 5:56 PM CDT [facility] HDL CHOLESTEROL 47 >40 mg/dL 5:56 PM CDT [facility] NON-HDL CHOLESTEROL 145(H) <145 mg/dl 12/05/2021 5:56 PM CDT [facility] CHOL/HDL RATIO 4.09 <4.50 12/05/2021 5:56 PM CDT [facility] LDL CHOLESTEROL 134(H) <=130 mg/dL 12/05/2021 5:56 PM CDT [facility] VLDL CHOLESTEROL 11 <=30 mg/dL 12/05/2021 5:56 PM CDT [facility] PROVIDER ORDERED STATUS RANDOM 12/05/2021 5:56 PM CDT [facility] Blood BLOOD SPECIMEN / Unknown Venipuncture / Unknown 12/05/2021 10:25 AM CDT 12/05/2021 10:26 AM CDT Brandt Elmore MD CHEMISTRY [facility] [address] [place] [address], * ANTI HCV [92900.2] (12/01/2020 11:38 AM CDT) HEPATITIS C ANTIBODY Non-React gabriel Non-React gabriel 12/01/2020 10:44 PM CDT [facility] [employer] [facility] Comment:Antibodies to HCV no t detected; does not exclude the possibility of exposure to HCV. Blood BLOOD SPECIMEN / Unknown Venipuncture / Unknown 12/01/2020 11:38 AM CDT 12/01/2020 11:41 AM CDT Brandt Elmore MD SEND OUTS Performing Organization Address City/[facility]/ZIP Co de Phone Number [facility] [address] [place] [address], * SCAN-COLONOSCOPY (07/18/2016 12:00 AM CDT) Scanner OTHER from Last 3 Months or Most Recently Relevant to Health Maintenance Advance Directives Documents on File Type Date Recorded Patient Machine Strap Buckler Expl anation Healthcare Directive 12/05/2021 9:33 AM a [facility] Care Directive * Full Code (Latest Code Status on File) Date Activated Date Inactivated Comments 03/20/2011 2:18 PM 03/23/2011 7:11 PM * Full Code Date Activated Date Inactivated Comments 03/15/2011 3:25 AM 03/17/2011 12:49 PM * Full Code Date Activated Date Inactivated Comments 02/27/2011 7:27 PM 03/01/2011 4:24 PM * Full Code Date Activated Date Inactivated Comments 02/27/2011 6:51 PM 02/27/2011 7:27 PM
--- OUTSIDE RECORDS SUMMARY | 2023-11-05 22:15 | XMS_ITS | Encounter Summary ---
Author Organization [facility] Address [address] [place] [address] Care Team Providers Care Adventure Therapist Name Role Phone Mark Colorado M.D. Primary Care Provider [phone] Encounter Details Date Type Department Care Team (Latest Contact Info) Description 07/02/2023 Orders Only Department of Oncology in [place], [place] [address] [place] [address] Karen Burger Cholangiocarcinoma (HCC) (Primary Dx); Guide Foreign Tour Current Drug Therapy, Chemotherapy; Peritoneal Carcinomatosis (HCC) [...] PM CDT Clinical Communication Virtual Review in [place], [place] [address] [place] [address] 11/15/2023 6:40 AM CDT Lab Department of Laboratory Medicine and Pathology, [facility] in [address] [address] Loyda Lennon M.D. [address] [place] [address] 11/15/2023 8:20 AM CDT Office Visit Department of Oncology in [address] [address] Manjit Velasquez APRN, C.N.P., D.N.P. [address] [place] [address] 11/15/2023 9:30 AM CDT Comprehensive Visit Department of Palliative Care in [address] [address] Patty Gomez APRN, C.N.P., M.S.N. [address] [place] [address] 11/15/2023 2:15 PM CDT Infusion Department of Oncology in [place], [place] [address] [place] [phone] Loyda Lennon M.D. [address] [place] [phone] 11/22/2023 7:30 AM CDT Lab Department of Oncology in [place], [place] [address] [place] [phone] Loyda Lennon M.D. [address] [place] [address] 11/22/2023 8:45 AM CDT Infusion Department of Oncology in [place], [place] [address] [place] [phone] Loyda Lennon M.D. [address] [place] [address] 11/28/2023 3:30 PM CDT Clinical Communication Virtual Review in [place], [place] [address] [place] [address] 11/29/2023 9:00 AM CDT Procedure visit Department of Urology in [place], [place] [address] [place] [phone] Mark Colorado M.D. [address] [place] [phone] 11/29/2023 11:20 AM CDT Lab Department of Laboratory Medicine and Pathology, [facility], in [place], [place] [address] [place] [phone] Loyda Lennon M.D. [address] [place] [address] 11/29/2023 11:30 AM CDT Lab Department of Oncology in [place], [place] [address] [place] [phone] Loyda Lennon M.D. [address] [place] [address] 11/29/2023 1:00 PM CDT Infusion Department of Oncology in [place], [place] [address] [place] [address] Loyda Lennon M.D. [address] [place] [address] 12/03/2023 1:45 PM CDT Comprehensive Visit Department of Urology in [place], [place] [address] [place] [phone] Mona Egan P.A.-C. [address] [place] [address] 12/05/2023 1:20 PM CDT Comprehensive Visit Department of Oncology in [place], [place] [address] [place] [phone] Letty Kate M.D. [address] [place] [address] 12/10/2023 3:00 PM CDT Clinical Communication Virtual Review in [place], [place] [address] [place] [address] 12/10/2023 3:30 PM CDT Procedure visit Department of Urology in [place], [place] [address] [place] [phone] Mark Colorado M.D. [address] [place] [address] 12/12/2023 3:45 PM CDT Appointment Department of Radiology, [facility], in [place], [place] [address] [place] [address] Na Hernandez M.D., Ph.D. [address] [place] [address] 12/13/2023 6:00 AM CDT Lab Department of Laboratory Medicine and Pathology, [facility], in [place], [place] [address] [place] [phone] Loyda Lennon M.D. [address] [place] [address] 12/13/2023 6:20 AM CDT Lab Department of Infusion Therapy in [place], [place] [address] [place] [phone] Loyda Lennon M.D. [address] [place] [address] 12/13/2023 11:10 AM CDT Office Visit Department of Oncology in [address] [address] Na Hernandez M.D., Ph.D. [address] [place] [address] 12/13/2023 1:00 PM CDT Infusion Department of Oncology in [address] [address] Loyda Lennon M.D. [address] [place] [address] 12/20/2023 9:20 AM CDT Lab Department of Infusion Therapy in [address] [address] Loyda Lennon M.D. [address] [place] [address] 12/20/2023 10:30 AM CDT Infusion Department of Oncology in [place], [place] [address] [place] [phone] Loyda Lennon M.D. [address] [place] [address] 12/25/2023 10:30 AM CDT Appointment Division of Gastroenterology in [place], [place] [address] [place] [phone] Na Hernandez M.D., Ph.D. [address] [place] [address] 12/27/2023 10:15 AM CDT Lab Department of Oncology in [place], [place] [address] [place] [phone] Loyda Lennon M.D. [address] [place] [address] 12/27/2023 10:30 AM CDT Lab Department of Laboratory Medicine and Pathology, [facility] in [address] [address] Loyda Lennon M.D. [address] [place] [address] 12/27/2023 11:45 AM CDT Infusion Department of Oncology in [address] [address] Loyda Lennon M.D. [address] [place] [address] 01/03/2024 1:00 PM CDT Clinical Communication Virtual Review in [place], [place] [address] [place] [address] 01/10/2024 8:00 AM CDT Lab Department of Infusion Therapy in [place], [place] [address] [place] [phone] Loyda Lennon M.D. [address] [place] [address] 01/10/2024 8:20 AM CDT Lab Department of Laboratory Medicine and Pathology, [facility] in [place], [place] [address] [place] [phone] Loyda Lennon M.D. [address] [place] [address] 01/10/2024 10:30 AM CDT Office Visit Department of Oncology in [place], [place] [address] [place] [phone] Na Hernandez M.D., Ph.D. [address] [place] [address] 01/10/2024 11:45 AM CDT Infusion Department of Oncology in [place], [place] [address] [place] [phone] Loyda Lennon M.D. [address] [place] [address] 01/17/2024 8:45 AM CDT Lab Department of Oncology in [place], [place] [address] [place] [phone] Loyda Lennon M.D. [address] [place] [address] 01/17/2024 10:00 AM CDT Infusion Department of Oncology in [address] [address] Loyda Lennon M.D. [address] [place] [address] 01/24/2024 8:00 AM CDT Lab Department of Laboratory Medicine and Pathology, [facility], in [place], [place] [address] [place] [phone] Loyda Lennon M.D. [address] [place] [address] 01/24/2024 8:15 AM CDT Lab Department of Oncology in [place], [place] [address] [place] [address] Loyda Lennon M.D. [address] [place] [address] 01/24/2024 9:15 AM CDT Infusion Department of Oncology in [place], [place] [address] [place] [address] Loyda Lennon M.D. [address] [place] [address] Scheduled Procedures Name Priority Associated Diagnoses Date/Ti me HEPATECTOMY RESECTION LIVER Cholangiocarcinoma (HCC) ULTRASOUND LIVER Cholangiocarcinoma (HCC) RECONSTRUCTION PORTAL VEIN Cholangiocarcinoma (HCC) documented as of this encounter Visit Diagnoses Diagnosis Cholangiocarcinoma (HCC)- Primary Longterm Current Drug Therapy, Chemotherapy Peritoneal Carcinomatosis (HCC) documented in this encounter Additional Health Concerns Infection Onset Date Last Indicated Resolved Time Protective Environment 11/07/2022 11/07/2022 documented as of this encounter Care Teams Adventure Therapist Relationship Specialty Start Date End Date Mark Colorado M.D. [address] [place] [address] PCP - General Family Medicine 11/09/22 documented as of this encounter
--- OUTSIDE RECORDS SUMMARY | 2023-11-05 22:15 | XMS_ITS | Encounter Summary ---
Author Organization [facility] Address [address] [place] [address] Care Team Providers Care Specialist Field Engineer Name Role Phone Mark Colorado M.D. Primary Care Provider [phone] Encounter Details Date Type Department Care Team (Late st Contact Info) Description 06/13/2023 Clinical Communication Department of Oncology in [place], [place] [address] [place] [address] Renetta Hayden RHoldenN. Social History Tobacco Use Types Packs/Day Years [...] encounter Miscellaneous Notes * Telephone Encounter - Catracho Renetta Shaffer - 06/13/2023 3:40 PM CDT SUBJECTIVE CHIEF COMPLAINT / REASON FOR CALL Update patient on status for clinical trial PLAN The following information was provided: I spoke with Mr. Sepulveda to discuss his approval for crossover on clinical trial [facility] [id number]. After speaking with the clinical coordinator, it was noted that there is not sufficient time to have him rescheduled to receive the study drug tomorrow, 06/13. He was notified that due to this short turn around time, his first treatment with the study drug will need to be scheduled at the earliest available next week. He and his requested to keep his appointment on 06/[address] Hernandez as they have several questions regarding next steps. He is aware that he will not receive treatment tomorrow and he will still need a provider visit next week prior to his treatment. Information/Education: patient/caller able to teach back The following references were used: Dr. Lennon and clinical research coordinator documented in this encounter Plan of Treatment Upcoming Encounters Date Type Department Care Team (Latest Contact Info) Description 11/07/2023 3:15 PM CDT Clinical Communication Virtual Review in [place], [place] [address] [place] [address] 11/15/2023 6:40 AM CDT Lab Department of Laboratory Medicine and Pathology, [facility], in [place], [place] [address] [place] [phone] Loyda Lennon M.D. [address] [place] [address] 11/15/2023 8:20 AM CDT Office Visit Department of Oncology in [place], [place] [address] [place] [phone] Manjit Velasquez APRN, C.N.P., D.N.P. [address] [place] [address] 11/15/2023 9:30 AM CDT Comprehensive Visit Department of Palliative Care in [place], [place] [address] [place] [address] Patty Gomez APRN, C.N.P., M.S.N. [address] [place] [phone] 11/15/2023 2:15 PM CDT Infusion Department of Oncology in [place], [place] [address] [place] [address] Loyda Lennon M.D. [address] [place] [address] 11/22/2023 7:30 AM CDT Lab Department of Oncology in [place], [place] [address] [place] [address] Loyda Lennon M.D. [address] [place] [address] 11/22/2023 8:45 AM CDT Infusion Department of Oncology in [place], [place] [address] [place] [address] Loyda Lennon M.D. [address] [place] [address] 11/28/2023 3:30 PM CDT Clinical Communication Virtual Review in [place], [place] [address] [place] [address] 11/29/2023 9:00 AM CDT Procedure visit Department of Urology in [place], [place] [address] [place] [address] Mark Colorado M.D. [address] [place] [address] 11/29/2023 11:20 AM CDT Lab Department of Laboratory Medicine and Pathology, [facility], in [place], [place] [address] [place] [address] Loyda Lennon M.D. [address] [place] [address] 11/29/2023 11:30 AM CDT Lab Department of Oncology in [place], [place] [address] [place] [address] Loyda Lennon M.D. [address] [place] [address] 11/29/2023 1:00 PM CDT Infusion Department of Oncology in [place], [place] [address] [place] [address] Loyda Lennon M.D. [address] [place] [address] 12/03/2023 1:45 PM CDT Comprehensive Visit Department of Urology in [address] [address] Mona Egan, PHoldenA.-Sara [address] [place] [address] 12/05/2023 1:20 PM CDT Comprehensive Visit Department of Oncology in [place], [place] [address] [place] [address] Letty Kate M.D. [address] [place] [address] 12/10/2023 3:00 PM CDT Clinical Communication Virtual Review in [place], [place] [address] [place] [address] 12/10/2023 3:30 PM CDT Procedure visit Department of Urology in [place], [place] [address] [place] [address] Mark Colorado M.D. [address] [place] [address] 12/12/2023 3:45 PM CDT Appointment Department of Radiology, [facility], in [place], [place] [address] [place] [address] Na Hernandez M.D., Ph.D. [address] [place] [address] 12/13/2023 6:00 AM CDT Lab Department of Laboratory Medicine and Pathology, [facility] in [place], [place] [address] [place] [address] Loyda Lennon M.D. [address] [place] [address] 12/13/2023 6:20 AM CDT Lab Department of Infusion Therapy in [place], [place] [address] [place] [address] Loyda Lennon M.D. [address] [place] [address] 12/13/2023 11:10 AM CDT Office Visit Department of Oncology in [place], [place] [address] [place] [address] Na Hernandez M.D., Ph.D. [address] [place] [address] 12/13/2023 1:00 PM CDT Infusion Department of Oncology in [place], [place] [address] [place] [phone] Loyda Lennon M.D. [address] [place] [address] 12/20/2023 9:20 AM CDT Lab Department of Infusion Therapy in [place], [place] [address] [place] [address] Loyda Lennon M.D. [address] [place] [address] 12/20/2023 10:30 AM CDT Infusion Department of Oncology in [place], [place] [address] [place] [address] Loyda Lennon M.D. [address] [place] [address] 12/25/2023 10:30 AM CDT Appointment Division of Gastroenterology in [address] [address] Na Hernandez M.D., Ph.D. [address] [place] [address] 12/27/2023 10:15 AM CDT Lab Department of Oncology in [place], [place] [address] [place] [phone] Loyda Lennon M.D. [address] [place] [address] 12/27/2023 10:30 AM CDT Lab Department of Laboratory Medicine and Pathology, [facility], in [place], [place] [address] [place] [address] Loyda Lennon M.D. [address] [place] [address] 12/27/2023 11:45 AM CDT Infusion Department of Oncology in [place], [place] [address] [place] [address] Loyda Lennon M.D. [address] [place] [address] 01/03/2024 1:00 PM CDT Clinical Communication Virtual Review in [place], [place] [address] [place] [address] 01/10/2024 8:00 AM CDT Lab Department of Infusion Therapy in [address] [address] Loyda Lennon M.D. [address] [place] [address] 01/10/2024 8:20 AM CDT Lab Department of Laboratory Medicine and Pathology, [facility], in [place], [place] [address] [place] [address] Loyda Lennon M.D. [address] [place] [address] 01/10/2024 10:30 AM CDT Office Visit Department of Oncology in [address] [address] Na Hernandez M.D., Ph.D. [address] [place] [address] 01/10/2024 11:45 AM CDT Infusion Department of Oncology in [address] [address] Loyda Lennon M.D. [address] [place] [address] 01/17/2024 8:45 AM CDT Lab Department of Oncology in [address] [address] Loyda Lennon M.D. [address] [place] [address] 01/17/2024 10:00 AM CDT Infusion Department of Oncology in [place], [place] [address] [place] [address] Loyda Lennon M.D. [address] [place] [address] 01/24/2024 8:00 AM CDT Lab Department of Laboratory Medicine and Pathology, [facility] in [place], [place] [address] [place] [address] Loyda Lennon M.D. [address] [place] [address] 01/24/2024 8:15 AM CDT Lab Department of Oncology in [place], [place] [address] [place] [address] Loyda Lennon M.D. [address] [place] [address] 01/24/2024 9:15 AM CDT Infusion Department of Oncology in [place], [place] [address] [place] [address] Loyda Lennon M.D. [address] [place] [phone] Scheduled Procedures Name Priority Associated Diagnoses Date/Ti me HEPATECTOMY RESECTION LIVER Cholangiocarcinoma (HCC) ULTRASOUND LIVER Cholangiocarcinoma (HCC) RECONSTRUCTION PORTAL VEIN Cholangiocarcinoma (HCC) documented as of this encounter Visit Diagnoses Not on filedocumented in this encounter Additional Health Concerns Infection Onset Date Last Indicated Resolved Time Protective Environment 11/07/2022 11/07/2022 documented as of this encounter Care Teams Specialist Field Engineer Relationship Specialty Start Date End Date Mark Colorado M.D. [facility] [place] [address] PCP - General Family Medicine 11/09/22 documented as of this encounter
--- OUTSIDE RECORDS SUMMARY | 2023-11-05 22:15 | XMS_ITS | Encounter Summary ---
Author Organization [facility] Address [address] [place] [address] Care Team Providers Care Finishing Range Operator Name Role Phone Mark Colorado M.D. Primary Care Provider Encounter Details Date Type Department Care Team (Late st Contact Info) Description 07/02/2023 Orders Only [facility] PCP TH OCTAVIAT Mark Colorado M.D. [address] [place] [phone] Social History Tobacco Use Types Packs/Day Years [...] PM CDT Clinical Communication Virtual Review in [place], [place] [address] [place] [address] 11/15/2023 6:40 AM CDT Lab Department of Laboratory Medicine and Pathology, [facility] in [address] [phone] Loyda Lennon M.D. [address] [place] [phone] 11/15/2023 8:20 AM CDT Office Visit Department of Oncology in [address] [phone] Manjit Velasquez APRN, C.N.P., D.N.P. [address] [place] [phone] 11/15/2023 9:30 AM CDT Comprehensive Visit Department of Palliative Care in [address] [phone] Patty Gomez APRN, C.N.P., M.S.N. [address] [place] [phone] 11/15/2023 2:15 PM CDT Infusion Department of Oncology in [address] [address] Loyda Lennon M.D. [address] [place] [phone] 11/22/2023 7:30 AM CDT Lab Department of Oncology in [place], [place] [address] [place] [phone] Loyda Lennon M.D. [address] [place] [phone] 11/22/2023 8:45 AM CDT Infusion Department of Oncology in [place], [place] [address] [place] [phone] Loyda Lennon M.D. [address] [place] [phone] 11/28/2023 3:30 PM CDT Clinical Communication Virtual Review in [place], [place] [address] [place] [address] 11/29/2023 9:00 AM CDT Procedure visit Department of Urology in [place], [place] [address] [place] [phone] Mark Colorado M.D. [address] [place] [address] [place] [phone] 11/29/2023 11:20 AM CDT Lab Department of Laboratory Medicine and Pathology, [facility], in [place], [place] [address] [place] [phone] Loyda Lennon M.D. [address] [place] [phone] 11/29/2023 11:30 AM CDT Lab Department of Oncology in [place], [place] [address] [place] [phone] Loyda Lennon M.D. [address] [place] [phone] 11/29/2023 1:00 PM CDT Infusion Department of Oncology in [place], [place] [address] [place] [phone] Loyda Lennon M.D. [address] [place] [phone] 12/03/2023 1:45 PM CDT Comprehensive Visit Department of Urology in [place], [place] [address] [place] [phone] Mona Egan P.A.-C. [address] [place] [phone] 12/05/2023 1:20 PM CDT Comprehensive Visit Department of Oncology in [place], [place] [address] [place] [phone] Letty Kate M.D. [address] [place] [phone] 12/10/2023 3:00 PM CDT Clinical Communication Virtual Review in [place], [place] [address] [place] [address] 12/10/2023 3:30 PM CDT Procedure visit Department of Urology in [place], [place] [address] [place] [phone] Mark Colorado M.D. [address] [place] [address] [place] [phone] 12/12/2023 3:45 PM CDT Appointment Department of Radiology, [facility], in [place], [place] [address] [place] [phone] Na Hernandez M.D., Ph.D. [address] [place] [phone] 12/13/2023 6:00 AM CDT Lab Department of Laboratory Medicine and Pathology, [facility], in [place], [place] [address] [place] [phone] Loyda Lennon M.D. [address] [place] [phone] 12/13/2023 6:20 AM CDT Lab Department of Infusion Therapy in [place], [place] [address] [place] [phone] Loyda Lennon M.D. [address] [place] [phone] 12/13/2023 11:10 AM CDT Office Visit Department of Oncology in [address] [address] Na Hernandez M.D., Ph.D. [address] [place] [phone] 12/13/2023 1:00 PM CDT Infusion Department of Oncology in [address] [address] Loyda Lennon M.D. [address] [place] [phone] 12/20/2023 9:20 AM CDT Lab Department of Infusion Therapy in [address] [address] Loyda Lennon M.D. [address] [place] [phone] 12/20/2023 10:30 AM CDT Infusion Department of Oncology in [address] [address] Loyda Lennon M.D. [address] [place] [phone] 12/25/2023 10:30 AM CDT Appointment Division of Gastroenterology in [address] [place] [address] Na Hernandez M.D., Ph.D. [address] [place] [phone] 12/27/2023 10:15 AM CDT Lab Department of Oncology in [place], [place] [address] [place] [phone] Loyda Lennon M.D. [address] [place] [phone] 12/27/2023 10:30 AM CDT Lab Department of Laboratory Medicine and Pathology, [facility] in [address] [phone] Loyda Lennon M.D. [address] [place] [phone] 12/27/2023 11:45 AM CDT Infusion Department of Oncology in [address] [address] Loyda Lennon M.D. [address] [place] [phone] 01/03/2024 1:00 PM CDT Clinical Communication Virtual Review in [place], [place] [address] [place] [address] 01/10/2024 8:00 AM CDT Lab Department of Infusion Therapy in [address] [phone] Loyda Lennon M.D. [address] [place] [phone] 01/10/2024 8:20 AM CDT Lab Department of Laboratory Medicine and Pathology, [facility] in [place], [place] [address] [place] [phone] Loyda Lennon M.D. [address] [place] [phone] 01/10/2024 10:30 AM CDT Office Visit Department of Oncology in [place], [place] [address] [place] [phone] Na Hernandez M.D., Ph.D. [address] [place] [phone] 01/10/2024 11:45 AM CDT Infusion Department of Oncology in [place], [place] [address] [place] [phone] Loyda Lennon M.D. [address] [place] [phone] 01/17/2024 8:45 AM CDT Lab Department of Oncology in [place], [place] [address] [place] [phone] Loyda Lennon M.D. [address] [place] [phone] 01/17/2024 10:00 AM CDT Infusion Department of Oncology in [address] [address] Loyda Lennon M.D. [address] [place] [phone] 01/24/2024 8:00 AM CDT Lab Department of Laboratory Medicine and Pathology, [facility], in [place], [place] [address] [place] [phone] Loyda Lennon M.D. [address] [place] [phone] 01/24/2024 8:15 AM CDT Lab Department of Oncology in [place], [place] [address] [place] [address] [place] [address] Loyda Lennon M.D. [address] [place] [address] 01/24/2024 9:15 AM CDT Infusion Department of Oncology in [place], [place] [address] [place] [address] Loyda Lennon M.D. [address] [place] [address] Scheduled Procedures Name Priority Associated Diagnoses Date/Ti me HEPATECTOMY RESECTION LIVER Cholangiocarcinoma (HCC) ULTRASOUND LIVER Cholangiocarcinoma (HCC) RECONSTRUCTION PORTAL VEIN Cholangiocarcinoma (HCC) documented as of this encounter Visit Diagnoses Not on filedocumented in this encounter Additional Health Concerns Infection Onset Date Last Indicated Resolved Time Protective Environment 11/07/2022 11/07/2022 documented as of this encounter Care Teams Finishing Range Operator Relationship Specialty Start Date End Date Mark Colorado M.D. [address] [place] [address] PCP - General Family Medicine 11/09/22 documented as of this encounter
== END 2023-10-22 01:47 | disposition home or self-care (01) ==
PROVIDERS: Visit Provider Family Medicine
DX: R10.9 Unspecified abdominal pain (principal); R11.0 Nausea
CPT/HCPCS: A0425; A0427

== ENCOUNTER 2023-11-16 20:37 | Emergency (ER) | payer MEDICARE, SELFPAY ==
[2023-11-16 20:46] VITALS: BP 128/76; PULSE 87; RESP 16; TEMP 36.9; O2SAT 94; BMI 25.5
--- NOTE | 2023-11-16 20:57 | ED.ABDPAIN ---
HPI - Abdominal Pain General Time Seen by Provider: 20:57 <Lilia Doll MD - Last Filed: 11/17/23 03:53> Date Seen: 11/16/23 <Lilia Doll MD - Last Filed: 11/17/23 03:53> Chief Complaint: Abdominal Pain <Lilia Doll MD - Last Filed: 11/17/23 03:53> Stated Complaint: bile duct cancer, no BM in 3 days <Lilia Doll MD - Last Filed: 11/17/23 03:53> Time Seen by Provider: 11/16/23 20:58 <Lilia Doll MD - Last Filed: 11/17/23 03:53> Source: patient, family, RN notes reviewed and old records reviewed <Lilia Doll MD - Last Filed: 11/17/23 03:53> Mode of arrival: ambulatory <Lilia Doll MD - Last Filed: 11/17/23 03:53> Limitations: no limitations <Lilia Doll MD - Last Filed: 11/17/23 03:53> History of Present Illness HPI narrative: Jorge Luis is a very pleasant 68-year-old gentleman with 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 Three weeks ago Jorge Luis had a surgery placing a bile duct stent after failure of the previous stent. Unfortunately, that 1 is now kinked in he is due to have that replaced on SaturdayNovember 18. Jorge Luis has been experiencing vomiting in the evenings somewhat improved with the use of Zofran. Jorge Luis was just discharged from [facility] on SaturdayNovember 11. He had been hospitalized for inability to urinate and had a catheter placed. Son states that this is perhaps from the trial chemotherapy that does cause inflammation and possibly he had inflammation of his prostate. He had been dealing with constipation and while in the hospital unable to have a bowel movement. They tried various therapies and the only thing that worked was a milk and molasses enema. He states he was discharged home on MiraLax daily and senna 2 tabs b.i.d.. Stooling was going fine until 3 days ago when he has not had a stool since that time. He has abdominal pain daily in the morning but now without a bowel movement he has a lot of a lower abdominal pain as well. He denies any blood in his stool. Complicating today's visit is the fact that Jorge Luis's is on day 5 of COVID. Jorge Luis has not had a cough and his baseline shortness of breath has not worsened. He did have a temperature of a 100.6? this morning. The nurses in the emergency have already swabbed him at this time. <Lilia Doll MD - Last Filed: 11/17/23 03:53> Related Data Allergies/Adverse Reactions: Allergies Allergy/AdvReac Type Severity Reaction Status Date / Time No Known Drug Allergies Allergy Verified 11/16/23 20:52 <Lilia Doll MD - Last Filed: 11/17/23 03:53> Review of Systems Status of ROS Reports: 10 or more systems reviewed and unremarkable except as noted in History and below <Lilia Doll MD - Last Filed: 11/17/23 03:53> Const Reports: fever and fatigue <Lilia Doll MD - Last Filed: 11/17/23 03:53> Eyes Denies: change in vision <Lilia Doll MD - Last Filed: 11/17/23 03:53> ENMT Denies: neck pain, difficulty swallowing or nasal congestion <Lilia Doll MD - Last Filed: 11/17/23 03:53> Cardio Reports: shortness of breath with exertion (Chronic); Denies: chest pain, palpitations, swelling of feet/ankles or lightheadedness <Lilia Doll MD - Last Filed: 11/17/23 03:53> Resp Reports: shortness of breath (Chronic); Denies: cough <Lilia Doll MD - Last Filed: 11/17/23 03:53> GI Reports: abdominal pain, nausea, vomiting and constipation; Denies: difficulty swallowing or blood in stool <Lilia Doll MD - Last Filed: 11/17/23 03:53> Musculo Denies: neck pain <Lilia Doll MD - Last Filed: 11/17/23 03:53> Integ/Breast Denies: rash <Lilia Doll MD - Last Filed: 11/17/23 03:53> Endo Reports: fatigue <Lilia Doll MD - Last Filed: 11/17/23 03:53> Exam Narrative: Exam Narrative: Jorge Luis is alert and oriented. He is nontoxic in appearance but does appear to be very fatigued. Face is symmetrical and speech is normal. Mentation is normal. Neck is supple. Heart with irregularly irregular rhythm. Compensatory pauses noted after additional systole abdomen is full and firm. Rather diffuse discomfort. Lower extremities without edema. Urine in the leg bag is clear and yellow. Rectal exam shows no stool in the rectal vault. <Lilia Doll MD - Last Filed: 11/17/23 03:53> Const: Vital Signs, click to edit/add: Vital Signs - 24 hr 11/16/23 20:46 Temperature 98.5 F Pulse Rate [Right Pulse Oximeter] 87 Respiratory Rate 16 Blood Pressure [Ri ght Upper Arm] 128/76 Pulse Oximetry 94 Oxygen Delivery Me thod Room Air <Lilia Doll MD - Last Filed: 11/17/23 03:53> Vital Signs, click to edit/add: Vital Signs - 24 hr 11/16/23 20:46 Temperature 98.5 F Pulse Rate [Right Pulse Oximeter] 87 Respiratory Rate 16 Blood Pressure [Ri ght Upper Arm] 128/76 Pulse Oximetry 94 Oxygen Delivery Me thod Room Air <Mark Katz MD - Last Filed: 11/17/23 05:29> Documenting provider has reviewed patient's vital signs: yes <Lilia Doll MD - Last Filed: 11/17/23 03:53> Course Course ED Course: Patient has multiple medical issues today. First he has a fever of 100.6 taken at home with recent exposure to COVID. O2 sats are reassuring. COVID test is pending. Additionally, he has chronic abdominal pain now with increasing abdominal pain and no stool over the last 3 days. He has no stool in the rectal vault on digital exam. No blood on the glove. Flat plate and upright are currently pending. Patient has had increased in nausea vomiting in the evening. He has a feeling stent that is due to be replaced on November 18. Will check LFTs. Along with CBC lactate Chem panel. Given the fact that he just recently had a catheter placed will also check a urinalysis. Differential diagnosis includes but is not limited to Spontaneous bacterial peritonitos with his history of known ascites, constipation, SBO, COVID, UTI, failed hepatic stent. During exam he did have an irregularly irregular heartbeat for a period of time. He denies previous history of atrial fibrillation. Will do EKG and place him on the appeals nurse. He is not currently on blood thinners. <Lilia Doll MD - Last Filed: 11/17/23 03:53> Reevaluation(s) Time of Reevaluation #1: 05:05 <Mark Katz MD - Last Filed: 11/17/23 05:29> Reevaluation #1: Contacted [facility] to make sure images were received in talk to GI. Briefly patient is a 68-year-old male with history of biliary duct carcinoma, recent stent placement a couple weeks ago after previous stents had kinked, presents today with increased abdominal pain and decreased stool output for the last couple of days with no stool in the rectal vault on exam. Has some increased nausea. Patient found to have elevated LFTs in the emergency department although no prior records to know what baseline is been recently. Otherwise mild leukopenia, reassuring basic panel, urinalysis not consistent infection, negative fluid COVID although spouse recently has been diagnosed with COVID. Multiple attempts to contact [facility] to speak to GI, waiting for call back. <Mark Katz MD - Last Filed: 11/17/23 05:29> Time of Reevaluation #2: 05:28 <Mark Katz MD - Last Filed: 11/17/23 05:29> Reevaluation #2: Care discussed with Dr. Cohen, [facility] to feels like patient should be transferred to [facility]. No beds currently available, will call back after 7:00 a.m.. Accepting provider will be Dr. Delgado. <Mark Katz MD - Last Filed: 11/17/23 05:29> Vital Signs Vital signs: Initial Vital Signs Temperature 98.5 F 11/16/23 20:46 Temperature Source Temporal Artery Scan 11/16/23 20:46 Pulse Rate 87 11/16/23 20:46 Pulse Rhythm Regular 11/16/23 20:46 Respiratory Rate 16 11/16/23 20:46 Blood Pressure 128/76 11/16/23 20:46 Blood Pressure Mean 93 11/16/23 20:46 Blood Pressure Position Sitting 11/16/23 20:46 Pulse Oximetry 94 11/16/23 20:46 Oxygen Delivery Method Room Air 11/16/23 20:46 Vital Signs Temperature 98.5 F 11/16/23 20:46 Pulse Rate 87 11/16/23 20:46 Respiratory Rate 16 11/16/23 20:46 Blood Pressure 128/76 11/16/23 20:46 Pulse Oximetry 94 11/16/23 20:46 Oxygen Delivery Method Room Air 11/16/23 20:46 Temperature 98.5 F 11/16/23 20:46 Pulse Rate 87 11/16/23 20:46 Respiratory Rate 16 11/16/23 20:46 Blood Pressure 128/76 11/16/23 20:46 Pulse Oximetry 94 11/16/23 20:46 Oxygen Delivery Method Room Air 11/16/23 20:46 <Lilia Doll MD - Last Filed: 11/17/23 03:53> Initial Vital Signs Temperature 98.5 F 11/16/23 20:46 Temperature Source Temporal Artery Scan 11/16/23 20:46 Pulse Rate 87 11/16/23 20:46 Pulse Rhythm Regular 11/16/23 20:46 Respiratory Rate 16 11/16/23 20:46 Blood Pressure 128/76 11/16/23 20:46 Blood Pressure Mean 93 11/16/23 20:46 Blood Pressure Position Sitting 11/16/23 20:46 Pulse Oximetry 94 11/16/23 20:46 Oxygen Delivery Method Room Air 11/16/23 20:46 Vital Signs Temperature 98.5 F 11/16/23 20:46 Pulse Rate 87 11/16/23 20:46 Respiratory Rate 16 11/16/23 20:46 Blood Pressure 128/76 11/16/23 20:46 Pulse Oximetry 94 11/16/23 20:46 Oxygen Delivery Method Room Air 11/16/23 20:46 Temperature 98.5 F 11/16/23 20:46 Pulse Rate 87 11/16/23 20:46 Respiratory Rate 16 11/16/23 20:46 Blood Pressure 128/76 11/16/23 20:46 Pulse Oximetry 94 11/16/23 20:46 Oxygen Delivery Method Room Air 11/16/23 20:46 <Mark Katz MD - Last Filed: 11/17/23 05:29> Medications Administered Medications: Discontinued Medications Generic Name Dose Route Start Last Admin Trade Name Freq PRN Reason Stop Dose Admin Sodium Chloride 500 mls @ 500 mls/hr 11/16/23 21:24 11/16/23 23:42 0.9 % Sodium Chloride 500 Ml IV 11/16/23 22:23 Infused .Q1H ONE Infusion <Lilia Doll MD - Last Filed: 11/17/23 03:53> Discontinued Medications Generic Name Dose Route Start Last Admin Trade Name Freq PRN Reason Stop Dose Admin Sodium Chloride 500 mls @ 500 mls/hr 11/16/23 21:24 11/16/23 23:42 0.9 % Sodium Chloride 500 Ml IV 11/16/23 22:23 Infused .Q1H ONE Infusion <Mark Katz MD - Last Filed: 11/17/23 05:29> MDM - Abdominal Pain MDM Narrative Medical decision making narrative: 1. Bile duct cancer - Failing stent that had been replaced 3 days ago now scheduled for replacement on 11/19/23. LFTs elevated but we are unsure what baseline may be. Currently waiting on consult with [facility]. 2. Abdominal pain-likely multifactorial with constipation/inability to stool for the last 3 days as well as chronic abdominal pain secondary to cancer possibilities. SBE must also be considered. Patient is not exquisitely tender upon his exam. White count is depressed. CRP is elevated at 14.7. AST 131, ALT 231, alk phos 7 7 for with normal bilirubin and lactate. 3. Constipation -no stool in the rectal vault. Patient has been using MiraLax daily, senna 2 tabs b.i.d.. We are unable to do a milk and molasses enema here but did use soap suds. Not a significant amount of stool was produced. 4. Fever/COVID -patient has tested negative for COVID but does have a depressed white count and positive exposures. We are continuing masking at this time. Patient is afebrile in the ED but reports a temp of a 100.6? this morning by his . 5. Disposition-this case will be signed out to my partner Dr. Katz for discussion with [facility] regarding need for transfer. CT has been push to [facility] for comparison. <Lilia Doll MD - Last Filed: 11/17/23 03:53> Medical Records Medical records narrative: No records available as patient has been is seen entirely at [facility]. <Lilia Doll MD - Last Filed: 11/17/23 03:53> Lab Data Attestation: I reviewed the patient's lab results. <Lilia Doll MD - Last Filed: 11/17/23 03:53> Labs: Lab Results 11/16/23 11/16/23 11/16/23 Range/Units 00:28 21:00 21:33 WBC (4.50-11.00) K/uL RBC (4.30-5.90) m/uL Hgb (13.5-17.5) gm/dL Hct (37.0-53.0) % MCV (80-100) fL MCH (26-34) pg MCHC (32-36) gm/dL RDW Coeff of Margie (11.5-15.5) % Plt Count (140-440) K/uL Neut % (Auto) (42.0-72.0) % Lymph % (Auto) (20-44) % [place] % (Auto) (0.0-11.0) % Eos % (Auto) (0.0-7.0) % Baso % (Auto) (0.0-3.0) % Neut # (Auto) (1.7-7.0) K/uL Lymph # (Auto) (0.90-2.90) K/uL [place] # (Auto) (0.00-0.90) K/UL Eos # (Auto) (0.00-0.50) K/uL Baso # (Auto) (0.00-0.30) K/uL Abs Immat Gran (auto) (0.00-0.30) K/uL Imm/Tot Granulo (auto) % Sodium (135-149) mmol/L Potassium (3.6-5.1) mmol/L Chloride (96-114) mmol/L Carbon Dioxide (20-32) mmol/L Anion Gap (7-15) mEq/L BUN (7-30) mg/dL Creatinine (0.5-1.5) mg/dL Estimated Creat Clear Estimated GFR ml/min Glucose (60-115) mg/dL Lactate (0.5-1.9) mmol/L Calcium (8.4-10.6) mg/dL Total Bilirubin (0.1-1.5) mg/dL AST (12-35) U/L ALT (4-50) U/L Alkaline Phosphatase (40-150) U/L C-Reactive Protein (0.5-1.0) mg/dL Total Protein (6.0-8.3) g/dL Albumin (3.3-5.0) g/dL Urine Color [place] A (Yellow) Urine Appearance Cloudy A (Clear) Urine pH 5.5 (5.0-8.5) Ur Specific [place] 1.020 (1.000-1.030) Urine Protein Trace A (Negative) Urine Glucose (UA) Negative (Negative) Urine Ketones Negative (Negative) Urine Blood 2+ A (Negative) Urine Nitrite Negative (Negative) Urine Bilirubin Negative (Negative) Urine Urobilinogen 1.0 (0.2-1.0) Ur Leukocyte Esterase Trace A (Negative) Urine RBC 5-10 A (0-2) Urine WBC 2-5 (0-5) Ur Squamous Epith Cells Few (None-Few) Other Sediment Moderate A (None) Urine Bacteria Few A (None) SARS-CoV-2 (PCR) Negative SARS-CoV-2 (Negative) Influenza Type A (PCR) Negative PCR FLU A (Negative) Influenza Type B (PCR) Negative PCR FLU B (Negative) RSV (PCR) Negative PCR RSV (Negative) POC Troponin I 0.01 (0.01-0.04) ng/ml 11/16/23 Range/Units 22:20 WBC 3.92 L (4.50-11.00) K/uL RBC 3.65 L (4.30-5.90) m/uL Hgb 11.3 L (13.5-17.5) gm/dL Hct 36.5 L (37.0-53.0) % MCV 100 (80-100) fL MCH 31 (26-34) pg MCHC 31 L (32-36) gm/dL RDW Coeff of Margie 16.1 H (11.5-15.5) % Plt Count 238 (140-440) K/uL Neut % (Auto) 66.2 (42.0-72.0) % Lymph % (Auto) 13.8 L (20-44) % [place] % (Auto) 16.3 H (0.0-11.0) % Eos % (Auto) 2.6 (0.0-7.0) % Baso % (Auto) 0.3 (0.0-3.0) % Neut # (Auto) 2.60 (1.7-7.0) K/uL Lymph # (Auto) 0.50 L (0.90-2.90) K/uL [place] # (Auto) 0.60 (0.00-0.90) K/UL Eos # (Auto) 0.10 (0.00-0.50) K/uL Baso # (Auto) 0.00 (0.00-0.30) K/uL Abs Immat Gran (auto) 0.00 (0.00-0.30) K/uL Imm/Tot Granulo (auto) 0.8 % Sodium 132 L (135-149) mmol/L Potassium 4.8 (3.6-5.1) mmol/L Chloride 105 (96-114) mmol/L Carbon Dioxide 21 (20-32) mmol/L Anion Gap 6 L (7-15) mEq/L BUN 33 H (7-30) mg/dL Creatinine 1.4 (0.5-1.5) mg/dL Estimated Creat Clear 55.49 Estimated GFR 54 ml/min Glucose 131 H (60-115) mg/dL Lactate 0.9 (0.5-1.9) mmol/L Calcium 8.6 (8.4-10.6) mg/dL Total Bilirubin 0.8 (0.1-1.5) mg/dL AST 131 H (12-35) U/L ALT 231 H (4-50) U/L Alkaline Phosphatase 774 H (40-150) U/L C-Reactive Protein 14.7 H (0.5-1.0) mg/dL Total Protein 6.1 (6.0-8.3) g/dL Albumin 3.1 L (3.3-5.0) g/dL Urine Color (Yellow) Urine Appearance (Clear) Urine pH (5.0-8.5) Ur Specific [place] (1.000-1.030) Urine Protein (Negative) Urine Glucose (UA) (Negative) Urine Ketones (Negative) Urine Blood (Negative) Urine Nitrite (Negative) Urine Bilirubin (Negative) Urine Urobilinogen (0.2-1.0) Ur Leukocyte Esterase (Negative) Urine RBC (0-2) Urine WBC (0-5) Ur Squamous Epith Cells (None-Few) Other Sediment (None) Urine Bacteria (None) SARS-CoV-2 (PCR) (Negative) Influenza Type A (PCR) (Negative) Influenza Type B (PCR) (Negative) RSV (PCR) (Negative) POC Troponin I (0.01-0.04) ng/ml <Lilia Doll MD - Last Filed: 11/17/23 03:53> Lab Results 11/16/23 11/16/23 11/16/23 Range/Units 00:28 21:00 21:33 WBC (4.50-11.00) K/uL RBC (4.30-5.90) m/uL Hgb (13.5-17.5) gm/dL Hct (37.0-53.0) % MCV (80-100) fL MCH (26-34) pg MCHC (32-36) gm/dL RDW Coeff of Margie (11.5-15.5) % Plt Count (140-440) K/uL Neut % (Auto) (42.0-72.0) % Lymph % (Auto) (20-44) % [place] % (Auto) (0.0-11.0) % Eos % (Auto) (0.0-7.0) % Baso % (Auto) (0.0-3.0) % Neut # (Auto) (1.7-7.0) K/uL Lymph # (Auto) (0.90-2.90) K/uL [place] # (Auto) (0.00-0.90) K/UL Eos # (Auto) (0.00-0.50) K/uL Baso # (Auto) (0.00-0.30) K/uL Abs Immat Gran (auto) (0.00-0.30) K/uL Imm/Tot Granulo (auto) % Sodium (135-149) mmol/L Potassium (3.6-5.1) mmol/L Chloride (96-114) mmol/L Carbon Dioxide (20-32) mmol/L Anion Gap (7-15) mEq/L BUN (7-30) mg/dL Creatinine (0.5-1.5) mg/dL Estimated Creat Clear Estimated GFR ml/min Glucose (60-115) mg/dL Lactate (0.5-1.9) mmol/L Calcium (8.4-10.6) mg/dL Total Bilirubin (0.1-1.5) mg/dL AST (12-35) U/L ALT (4-50) U/L Alkaline Phosphatase (40-150) U/L C-Reactive Protein (0.5-1.0) mg/dL Total Protein (6.0-8.3) g/dL Albumin (3.3-5.0) g/dL Urine Color [place] A (Yellow) Urine Appearance Cloudy A (Clear) Urine pH 5.5 (5.0-8.5) Ur Specific [place] 1.020 (1.000-1.030) Urine Protein Trace A (Negative) Urine Glucose (UA) Negative (Negative) Urine Ketones Negative (Negative) Urine Blood 2+ A (Negative) Urine Nitrite Negative (Negative) Urine Bilirubin Negative (Negative) Urine Urobilinogen 1.0 (0.2-1.0) Ur Leukocyte Esterase Trace A (Negative) Urine RBC 5-10 A (0-2) Urine WBC 2-5 (0-5) Ur Squamous Epith Cells Few (None-Few) Other Sediment Moderate A (None) Urine Bacteria Few A (None) SARS-CoV-2 (PCR) Negative SARS-CoV-2 (Negative) Influenza Type A (PCR) Negative PCR FLU A (Negative) Influenza Type B (PCR) Negative PCR FLU B (Negative) RSV (PCR) Negative PCR RSV (Negative) POC Troponin I 0.01 (0.01-0.04) ng/ml 11/16/23 Range/Units 22:20 WBC 3.92 L (4.50-11.00) K/uL RBC 3.65 L (4.30-5.90) m/uL Hgb 11.3 L (13.5-17.5) gm/dL Hct 36.5 L (37.0-53.0) % MCV 100 (80-100) fL MCH 31 (26-34) pg MCHC 31 L (32-36) gm/dL RDW Coeff of Margie 16.1 H (11.5-15.5) % Plt Count 238 (140-440) K/uL Neut % (Auto) 66.2 (42.0-72.0) % Lymph % (Auto) 13.8 L (20-44) % [place] % (Auto) 16.3 H (0.0-11.0) % Eos % (Auto) 2.6 (0.0-7.0) % Baso % (Auto) 0.3 (0.0-3.0) % Neut # (Auto) 2.60 (1.7-7.0) K/uL Lymph # (Auto) 0.50 L (0.90-2.90) K/uL [place] # (Auto) 0.60 (0.00-0.90) K/UL Eos # (Auto) 0.10 (0.00-0.50) K/uL Baso # (Auto) 0.00 (0.00-0.30) K/uL Abs Immat Gran (auto) 0.00 (0.00-0.30) K/uL Imm/Tot Granulo (auto) 0.8 % Sodium 132 L (135-149) mmol/L Potassium 4.8 (3.6-5.1) mmol/L Chloride 105 (96-114) mmol/L Carbon Dioxide 21 (20-32) mmol/L Anion Gap 6 L (7-15) mEq/L BUN 33 H (7-30) mg/dL Creatinine 1.4 (0.5-1.5) mg/dL Estimated Creat Clear 55.49 Estimated GFR 54 ml/min Glucose 131 H (60-115) mg/dL Lactate 0.9 (0.5-1.9) mmol/L Calcium 8.6 (8.4-10.6) mg/dL Total Bilirubin 0.8 (0.1-1.5) mg/dL AST 131 H (12-35) U/L ALT 231 H (4-50) U/L Alkaline Phosphatase 774 H (40-150) U/L C-Reactive Protein 14.7 H (0.5-1.0) mg/dL Total Protein 6.1 (6.0-8.3) g/dL Albumin 3.1 L (3.3-5.0) g/dL Urine Color (Yellow) Urine Appearance (Clear) Urine pH (5.0-8.5) Ur Specific [place] (1.000-1.030) Urine Protein (Negative) Urine Glucose (UA) (Negative) Urine Ketones (Negative) Urine Blood (Negative) Urine Nitrite (Negative) Urine Bilirubin (Negative) Urine Urobilinogen (0.2-1.0) Ur Leukocyte Esterase (Negative) Urine RBC (0-2) Urine WBC (0-5) Ur Squamous Epith Cells (None-Few) Other Sediment (None) Urine Bacteria (None) SARS-CoV-2 (PCR) (Negative) Influenza Type A (PCR) (Negative) Influenza Type B (PCR) (Negative) RSV (PCR) (Negative) POC Troponin I (0.01-0.04) ng/ml <Mrak Katz MD - Last Filed: 11/17/23 05:29> Imaging Data CT scan - abdomen: Attestation: I have reviewed the pertinent imaging results. <Lilia Doll MD - Last Filed: 11/17/23 03:53> Radiologist's impression: Lower chest: Bilateral pleural effusions, [id number], with associated passive atelectasis. Liver/Biliary system: Moderate intrahepatic biliary ductal dilatation with 2 indwelling intra and extrahepatic biliary ductal stents. Prior cholecystectomy. Too small to characterize subcapsular hypodense lesion within the posterior right hepatic lobe (2/53). Patent portal and hepatic veins. Pancreas: Unremarkable. No mass or inflammation. Spleen: Unremarkable. Normal in size. No masses. Adrenal glands: Unremarkable. No nodules. Kidneys: Unremarkable. No suspicious masses, stones, or hydronephrosis. GI tract: Jjzs-hp-xsrziujm stool burden throughout the colon. Normal in caliber. The appendix appears surgically absent. Vasculature: Normal caliber abdominal aorta with mild atherosclerotic calcification. Mesenteric arteries are patent. Lymph nodes: No lymphadenopathy. Peritoneum/Abdominal Wall: Large volume ascites, unclear etiology. No free air. Unremarkable abdominal wall. Pelvis: Normal-sized prostate. Urinary catheter within the bladder, which is decompressed. Bones: Unremarkable for age. IMPRESSION: 1. No bowel obstruction. Oust-my-lwbhfdzq colonic stool burden. 2. Large volume ascites, unclear etiology. No CT evidence for cirrhosis. 3. Moderate intrahepatic biliary ductal dilatation with 2 indwelling intra and extrahepatic biliary ductal stents. No prior study available to evaluate for interval change. <Lilia Doll MD - Last Filed: 11/17/23 03:53> ECG Data Attestation: I personally reviewed and interpreted this ECG as follows: <Lilia Doll MD - Last Filed: 11/17/23 03:53> ECG interpretation date: 11/16/23 <Lilia Doll MD - Last Filed: 11/17/23 03:53> Interpretation: EKG by my read shows sinus tachycardia at a rate of 102. Frequent PVC. No acute ST or T-wave changes. QT and MI intervals within normal limits. <Lilia Doll MD - Last Filed: 11/17/23 03:53> Discharge Plan Discharge Clinical Impression: Abdominal ascites, Abdominal pain, Constipation, History of biliary duct stent placement, Bile duct carcinoma <Lilia Doll MD - Last Filed: 11/17/23 03:53> Patient Disposition: [facility] <Lilia Doll MD - Last Filed: 11/17/23 03:53> Condition: Stable <Lilia Doll MD - Last Filed: 11/17/23 03:53> Instructions: Constipation (DC), Acute Abdominal Pain (ED), Ascites (ED) <Lilia Doll MD - Last Filed: 11/17/23 03:53> Additional Instructions: Increase MiraLax to twice a day Follow-up this week at [facility] for stent change <Lilia Doll MD - Last Filed: 11/17/23 03:53> Activity Level: Activity as Tolerated <Lilia Doll MD - Last Filed: 11/17/23 03:53> Activity as Tolerated <Mark Katz MD - Last Filed: 11/17/23 05:29> Discharge Diet: Regular <Lilia Doll MD - Last Filed: 11/17/23 03:53> Regular <Mark Katz MD - Last Filed: 11/17/23 05:29> Stand Alone Forms: [employer] Info Instructions <Lilia Doll MD - Last Filed: 11/17/23 03:53>
[2023-11-16 21:43] LABS: PCR FLU A Negative PCR FLU A (Negative); PCR FLU B Negative PCR FLU B (Negative); PCR RSV Negative PCR RSV (Negative); SARS PCR* Negative SARS-CoV-2 (Negative)
--- NOTE | 2023-11-16 22:15 | CRLHL7_ITS ---
For Patients: As a result of the 21st Century Cures Act, medical imaging exams and procedure reports are released immediately into your electronic medical record. You may view this report before your referring provider. If you have questions, please contact your health care provider. INDICATION: INABILITY TO STOOL ABDOMINAL PAIN. TECHNIQUE: CT abdomen and pelvis acquired with 96 cc of Isovue 370 IV contrast. COMPARISON: None. FINDINGS: Lower chest: Bilateral pleural effusions, cxgz-eonbtmb-morz-right, with associated passive atelectasis. Liver/Biliary system: Moderate intrahepatic biliary ductal dilatation with 2 indwelling intra and extrahepatic biliary ductal stents. Prior cholecystectomy. Too small to characterize subcapsular hypodense lesion within the posterior right hepatic lobe (2/53). Patent portal and hepatic veins. Pancreas: Unremarkable. No mass or inflammation. Spleen: Unremarkable. Normal in size. No masses. Adrenal glands: Unremarkable. No nodules. Kidneys: Unremarkable. No suspicious masses, stones, or hydronephrosis. GI tract: Paea-qo-bdpvxccm stool burden throughout the colon. Normal in caliber. The appendix appears surgically absent. Vasculature: Normal caliber abdominal aorta with mild atherosclerotic calcification. Mesenteric arteries are patent. Lymph nodes: No lymphadenopathy. Peritoneum/Abdominal Wall: Large volume ascites, unclear etiology. No free air. Unremarkable abdominal wall. Pelvis: Normal-sized prostate. Urinary catheter within the bladder, which is decompressed. Bones: Unremarkable for age. IMPRESSION: 1. No bowel obstruction. Jdtf-sh-uqzvlisw colonic stool burden. 2. Large volume ascites, unclear etiology. No CT evidence for cirrhosis. 3. Moderate intrahepatic biliary ductal dilatation with 2 indwelling intra and extrahepatic biliary ductal stents. No prior study available to evaluate for interval change. Please note that all CT scans at this facility use dose modulation, iterative reconstruction, and/or weight-based dosing when appropriate to reduce radiation dose to as low as reasonably achievable. Dictated by Justino Durbin MD @ 11/17/2023 1:02:16 AM (Electronically Signed)
[2023-11-16 22:28] LABS: Lactate* 0.9 mmol/L (0.5-1.9)
[2023-11-16 22:41] LABS: Troponin, Point-of-Care* 0.01 ng/ml (0.01-0.04)
[2023-11-16 22:44] LABS: Albumin* 3.1 g/dL (3.3-5.0); Chloride* 105 mmol/L (96-114); Sodium* 132 mmol/L (135-149)
[2023-11-16 22:45] LABS: Potassium* 4.8 mmol/L (3.6-5.1)
[2023-11-16] MEDS: 0.9 % SODIUM CHLORIDE 500 ML 500 ML IV (22:45)
[2023-11-16 22:47] LABS: Bilirubin Total* 0.8 mg/dL (0.1-1.5); Creatinine* 1.4 mg/dL (0.5-1.5); Est. Creatinine Clearance* 55.49; Estimated Glomerular Filt Rate 54 ml/min
[2023-11-16 22:48] LABS: Alanine Aminotransferase* 231 U/L (4-50); Alkaline Phosphatase* 774 U/L (40-150); Anion Gap 6 mEq/L (7-15); Aspartate Amino Transferase* 131 U/L (12-35); Blood Urea Nitrogen* 33 mg/dL (7-30); Calcium* 8.6 mg/dL (8.4-10.6); Carbon Dioxide* 21 mmol/L (20-32); Glucose* 131 mg/dL (60-115); Total Protein* 6.1 g/dL (6.0-8.3)
[2023-11-16 22:56] LABS: Basophils Percent Auto 0.3 % (0.0-3.0); Eosinophils Percent Auto 2.6 % (0.0-7.0); Hematocrit 36.5 % (37.0-53.0); Hemoglobin* 11.3 gm/dL (13.5-17.5); Immature Granulocytes Pct Auto 0.8 %; Lymphocytes Percent Auto 13.8 % (20-44); Mean Corpuscular HGB Conc 31 gm/dL (32-36); Mean Corpuscular Hemoglobin 31 pg (26-34); Mean Corpuscular Volume 100 fL (80-100); Monocytes Percent Auto 16.3 % (0.0-11.0); Neutrophils Percent Auto 66.2 % (42.0-72.0); Platelet Count* 238 K/uL (140-440); RDW Coefficient of Variation % 16.1 % (11.5-15.5); Red Blood Count 3.65 m/uL (4.30-5.90); White Blood Count* 3.92 K/uL (4.50-11.00)
[2023-11-16 23:04] LABS: C Reactive Protein* 14.7 mg/dL (0.5-1.0)
[2023-11-16 23:10] LABS: Slide Review Reflex No
[2023-11-17 00:49] LABS: Appearance Urine Cloudy (Clear); Bilirubin Urine Negative (Negative); Blood Urine 2+ (Negative); Color Urine Amber (Yellow); Glucose Urine Negative (Negative); Ketones Urine Negative (Negative); Leukocyte Esterase Urine Trace (Negative); Nitrite Urine Negative (Negative); Protein Urine Trace (Negative); pH Urine 5.5 (5.0-8.5)
[2023-11-17 01:00] LABS: Bacteria Urine Few; Squamous Epithelial Cell Urine Few (None-Few)
[2023-11-17 01:01] LABS: Other Sediment Urine Moderate
[2023-11-17] MEDS: 0.9 % SODIUM CHLORIDE 1000 ml 1,000 ML 125 ML IV (13:12)
[2023-11-17 14:00] VITALS: BP 162/90; PULSE 96; RESP 16; O2SAT 97
== END 2023-11-17 14:12 | disposition short-term general hospital (02) ==
PROVIDERS: Emergency Provider Family Medicine
DX: R18.8 Other ascites (principal); R10.9 Unspecified abdominal pain; K59.00 Constipation, unspecified; C22.1 Intrahepatic bile duct carcinoma
CPT/HCPCS: 36415; 74177; 80053; 81001; 83605; 84484; 85025; 86140; 87086; 87186; 87631; 93005; 96360; 99285; J7030; Q9967

== ENCOUNTER 2023-11-17 14:00 | Outpatient (CLI) | payer MEDICARE, SELFPAY ==
--- OUTSIDE RECORDS SUMMARY | 2023-11-18 05:41 | XMS_ITS | Clinical Summary ---
Author Organization [facility] Address [place], [place] [address] Care Team Providers Care Finishing Area Operator Name Role Phone Unavailable Primary Care Provider [...] by mouth once daily. 09/13/2021 Active glucosamine nck-ivyjdixeky-vhe 500-200-150 mg tab Take 1 Tablet by [...] Sex Assigned at Male 05/31/2021 5:56 PM DIRECTOR LEARNING AND DEVELOPMENT Gender Identity Male 05/31/2021 5:53 PM DIRECTOR LEARNING AND DEVELOPMENT Sexual Orientation Straight 05/31/2021 5: 56 PM DIRECTOR LEARNING AND DEVELOPMENT Obstetrics History Last Filed Vital Signs Vital Sign Reading Time Taken Comments Blood Pressure 132/82 07/02/2022 11:32 AM CDT Pulse 60 07/02/2022 11:32 AM CDT Temperature 36.8 ??C (98.3 ??F) 09/18/2021 1:40 PM CD T Respiratory Rate 18 03/23/2011 12:33 PM DIRECTOR LEARNING AND DEVELOPMENT Oxygen Saturation 98% 09/18/2021 1:40 PM CDT [...] Completed 12/01/2020 Medical Devices Implanted Type Area Back Sizer Device Identifier Shelf Expiration Date Model / Serial / Lot Cartrg Rapidfire Sd 1.5x4mm - [id number] Implanted:Qty: 2 on 03/15/2011 at [facility] Left: Brain [employer] 09/29/2013 [id number]# / / [id number] Plate Thinflap 18.5mm Bent Silas Hole - [id number] Implanted:Qty: 1 on 03/15/2011 at [facility] Left: Cranium [employer] [id number]# / / LOAD #[id number] 28 FEB 2011 Plate Thinflap 13mm Bent Silas Hole - [id number] Implanted:Qty: 2 on 03/15/2011 at [facility] Left: Cranium [employer] -9# / [...] - 199 mg/dL 12/05/2021 5:56 PM CDT [facility] TRIGLYCERIDES 54 <150 mg/dL 12/05/2021 5:56 PM CDT [facility] HDL CHOLESTEROL 47 >40 mg/dL 5:56 PM CDT [facility] NON-HDL CHOLESTEROL 145(H) <145 mg/dl 12/05/2021 5:56 PM CDT [facility] CHOL/HDL RATIO 4.09 <4.50 12/05/2021 5:56 PM CDT [facility] LDL CHOLESTEROL 134(H) <=130 mg/dL 12/05/2021 5:56 PM CDT [facility] VLDL CHOLESTEROL 11 <=30 mg/dL 12/05/2021 5:56 PM CDT [facility] PROVIDER ORDERED STATUS RANDOM 12/05/2021 5:56 PM CDT [facility] Blood BLOOD SPECIMEN / Unknown Venipuncture / Unknown 12/05/2021 10:25 AM CDT 12/05/2021 10:26 AM CDT Brandt Elmore MD CHEMISTRY [facility] [address] [place] [address], * ANTI HCV [90866.2] (12/01/2020 11:38 AM CDT) HEPATITIS C ANTIBODY Non-React gabriel Non-React gabriel 12/01/2020 10:44 PM CDT [email or web address] Comment:Antibodies to HCV no t detected; does not exclude the possibility of exposure to HCV. Blood BLOOD SPECIMEN / Unknown Venipuncture / Unknown 12/01/2020 11:38 AM CDT 12/01/2020 11:41 AM CDT Brandt Elmore MD SEND OUTS Performing Organization Address City/[facility]/ZIP Co de Phone Number [facility] [address] [place] [address], * SCAN-COLONOSCOPY (07/18/2016 12:00 AM CDT) Scanner OTHER from Last 3 Months or Most Recently Relevant to Health Maintenance Advance Directives Documents on File Type Date Recorded Patient Cane Weigher Expl anation Healthcare Directive 12/05/2021 9:33 AM [facility] Care Directive * Full Code (Latest Code [...]
== END 2023-11-17 14:01 | disposition home or self-care (01) ==
LOC: AMB 11-18 05:39
PROVIDERS: Visit Provider Emergency Medicine Emergency Medical Services
DX: R18.8 Other ascites (principal); K59.00 Constipation, unspecified
CPT/HCPCS: A0425; A0429